=== PATIENT | female | born 1980 | race Caucasian/White ===

== ENCOUNTER 2020-04-04 17:31 | Outpatient (REF) | payer OTHER, SELFPAY | END 2020-04-04 17:32 | disposition home or self-care (01) | LOC: HO.LAB 17:31 | PROVIDERS: Visit Provider Internal Medicine | DX: Z20.828 Contact with and (suspected) exposure to other viral communicable diseases (principal) | CPT/HCPCS: C9803; U0003 ==

== ENCOUNTER 2020-12-24 23:44 | Emergency (ER) | payer OTHER, SELFPAY ==
[2020-12-25 00:59] VITALS: BP 148/94; PULSE 93; RESP 18; TEMP 36.4; O2SAT 100; BMI 23.3
--- NOTE | 2020-12-25 02:03 | PC.NURSE ---
at bedside for primary eval.
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
[2020-12-25] MEDS: Ondansetron ODT 4 MG TAB.RAPDIS TRANSLINGU (02:19)
[2020-12-25] MEDS: oxyCODONE HCl Immed Release 5 MG TABLET 10 MG PO (02:20)
--- NOTE | 2020-12-25 02:21 | PC.NURSE ---
Pt medicated per MAR.
== END 2020-12-25 02:26 | disposition home or self-care (01) ==
LOC: HO.ED 12-25 02:25
PROVIDERS: Emergency Provider Emergency Medicine
DX: T23.241A Burn of second degree of multiple right fingers (nail), including thumb, initial encounter (principal); T23.232A Burn of second degree of multiple left fingers (nail), not including thumb, initial encounter; T31.0 Burns involving less than 10% of body surface; M79.641 Pain in right hand; X08.8XXA Exposure to other specified smoke, fire and flames, initial encounter; Y93.9 Activity, unspecified; Y92.9 Unspecified place or not applicable; Y99.9 Unspecified external cause status
CPT/HCPCS: 99283

== ENCOUNTER 2021-01-02 13:45 | Outpatient (RCR) | payer OTHER, SELFPAY | END 2021-02-20 14:47 | disposition home or self-care (01) | LOC: HO.WCC 13:45 | PROVIDERS: Visit Provider Physician Assistant | DX: T23.222D Burn of second degree of single left finger (nail) except thumb, subsequent encounter (principal); T31.0 Burns involving less than 10% of body surface; I10 Essential (primary) hypertension | CPT/HCPCS: 99213 ==

== ENCOUNTER 2021-04-08 12:21 | Emergency (ER) | payer OTHER, SELFPAY ==
[2021-04-08 12:31] VITALS: BP 165/108; PULSE 85; RESP 18; TEMP 36.6; O2SAT 100; BMI 28.2
--- NOTE | 2021-04-08 14:06 | ED_ITS ---
HPI - Back Pain/Injury General Chief Complaint: Back Pain/Injury Stated Complaint: back pain Time Seen by Provider: 04/08/21 13:01 Source: patient Mode of arrival: ambulatory Limitations: no limitations History of Present Illness HPI Narrative: 40-year-old female presenting to the ED with complaints of lower back pain for the past few days worse today. Reports that the pain radiates to her bilateral lower extremities. She reports she started her new job tomorrow. She missed her hypertensive meds today. She reports that her back pain started shortly after she was helping move stuff out of her dad's house. She denies any other symptoms complaints or concerns at this time. MD elicited complaint: back pain and back injury Onset (ago): day(s) (Past few days worse today) Timing: constant and progressively worsening Severity: moderate Quality: aching Location: lumbar spine Radiation: buttocks Exacerbating factors: movement and walking Relieving factors: none Context: while lifting, turning/twisting and bending Associated symptoms: denies other symptoms Work related injury: No Related Data Previous Rx's Medication Instructions Recorded oxycodone 5 mg tablet 5 mg PO Q4H PRN #14 tab 12/25/20 acetaminophen 500 mg tablet 1,000 mg PO QID PRN #14 tab 04/08/21 (Tylenol Extra Strength) diazepam 5 mg tablet (Valium) 5 mg PO TID PRN #14 tab 04/08/21 ibuprofen 800 mg tablet 800 mg PO Q8H PRN #14 tab 04/08/21 oxycodone 5 mg tablet 5 mg PO Q6H PRN #14 tab 04/08/21 prednisone 20 mg tablet 40 mg PO DAILY 5 Days #10 tab 04/08/21 Allergies Allergy/AdvReac Type Severity Reaction Status Date / Time azithromycin Allergy Rash Verified 04/08/21 12:31 rifabutin Allergy Rash Verified 04/08/21 12:31 Review of Systems Review of Systems: Constitutional : No trauma, No Weight loss, No Fever, No Chills, ENT/Mouth : No Hearing loss, No Ear Pain, No Nasal Congestion, No Sinus Pain, No Hoarseness, No sore throat, No Rhinorrhea, No Swallowing Difficulty Cardiovascular : No Chest Pain, No SOB Respiratory : No Cough, No Dyspnea Gastrointestinal : No Nausea, No Vomiting, No Diarrhea, No abdominal Pain, No Hematochezia, No Melena Genitourinary : No Dysuria, No Urinary Frequency, No Hematuria, No Urinary or Bowel Incontinence/retention Musculoskeletal : + Back pain, No neck pain, No joint stiffness, No joint swelling Skin : No Skin Lesions, No rash or signs of infection Neuro : No Weakness, + radiation, No Numbness, No Paresthesias, No headache, no loss of bowel or bladder incontinence, no saddle anesthesia, Focal weakness, No radiation Denies history of IV drug usage. Yes all other systems are reviewed and are negative [facility] Past Medical History Attestation statement: The following information was validated with the patient. Medical History Depression HIV (human immunodeficiency virus infection) HTN (hypertension) No known health problems Social History Social History Patient Tobacco Use Status: Never used Tobacco Advance Directives: No Advance Directives Information Provided: Yes Patient : No Physical Exam Vital Signs: Vital Signs: Last Vital Signs Temp 97.9 F 04/08/21 12:31 Pulse 85 04/08/21 12:31 Resp 18 04/08/21 12:31 BP 165/108 H 04/08/21 12:31 Pulse Ox 100 04/08/21 12:31 Body Mass Index 28.2 vital signs have been reviewed as normal and appeared to be correct. Blood pressure 165/108. Heart rate normal. Respiration rate normal. Temperature normal. Oxygen saturation normal. Appearance: Alert. Oriented X3. No acute distress. Head: Normal external exam. Normocephalic. Atraumatic. Eyes: PERRLA. EOMI. Conjunctiva and sclera normal. Eyelids normal. ENT: Pharynx normal. Uvula midline. Moist mucous membranes. Neck: Normal inspection. Neck supple. FROM. No adenopathy. Thyroid Normal. No meningeal signs. No neck mass noted. CVS: Normal heart rate and rhythm. Heart sound normal. No murmurs noted. Pulses normal throughout. Respiratory: No respiratory distress. Painless inspiration. Breath sounds normal. No wheezes/rales/rhonchi noted. Chest nontender. No accessory muscle usage noted or decreased air movement noted. Abdomen: Soft and nontender. Bowel sounds normal in all 4 quadrants. No distention noted. No organomegaly noted. No visible injury noted. Back: No CVA tenderness. Full range of motion noted. No obvious deformities, or edema. Mild para-spinal muscular tenderness from lumbar region to coccyx. Full ROM in back and lower extremities. 5/5 strength hip extension/flexion, abduction, adduction. Mild Lumbar pain with hip flexion against resistance. Straight leg raise test negative on right; Straight leg raise test negative on left; Reflexes normal ankle and knee bilaterally; EHL motor strength normal bilaterally. No rashes/lesion/induration/fluctuance or signs infection noted. Skin: Skin warm and dry. Normal skin color. Normal skin turgor. No rashes/lesions/lacerations noted. Extremities: No lower extremity edema. Extremities exhibit normal range of motion. Extremities nontender. Neuro: Oriented X 3. No motor deficit. No sensory deficit. Reflexes normal. Patient has a normal steady gait. Course Course Course Narrative: Pt c likely muscular pain, but could be herniated disc. Neuro exam shows no deficits. Not c/w AAA/epidural abscess/dissection.No high risk Hx (Incont, fever, immunosupp, recent surgery/LP, coag, signif trauma, wt loss, puls mass, hx/o Ca, TB, or IVDU) to warrant MRI/CT today. Not c/w Pyelo/UTI/kidney stone/spinal fx. Not cauda equina syndrome. Imaging not currently indicated. DC c meds and f/u. Discharge Plan Discharge Clinical Impression: Strain of lumbar region Patient Disposition: Home, Self-Care Instructions: Low Back Strain (ED), Lower Back Exercises (ED) Prescriptions: New ibuprofen 800 mg tablet 800 mg PO Q8H PRN (Reason: pain) Qty: 14 RF: 0 prednisone 20 mg tablet 40 mg PO DAILY 5 Days Qty: 10 RF: 0 acetaminophen [Tylenol Extra Strength] 500 mg tablet 1,000 mg PO QID PRN (Reason: fever or pain) Qty: 14 RF: 0 diazepam [Valium] 5 mg tablet 5 mg PO TID PRN (Reason: muscle spasm) Qty: 14 RF: 0 oxycodone 5 mg tablet 5 mg PO Q6H PRN (Reason: pain) Qty: 14 RF: 0 No Action oxycodone 5 mg tablet 5 mg PO Q4H PRN (Reason: pain) Qty: 14 RF: 0 Referrals: Shala Shields MD [Primary Care Provider] - 2 days Stand Alone Forms: Work/School Release Print Language: Amharic
[2021-04-08] MEDS: Ibuprofen 800 MG TABLET PO (14:15)
[2021-04-08] MEDS: Cyclobenzaprine HCl 10 MG TABLET PO (14:16)
[2021-04-08] MEDS: oxyCODONE HCl Immed Release 5 MG TABLET PO (14:16)
== END 2021-04-08 14:22 | disposition home or self-care (01) ==
PROVIDERS: Emergency Provider Emergency Medicine Emergency Medical Services; PCP Internal Medicine
DX: S39.012A Strain of muscle, fascia and tendon of lower back, initial encounter (principal); X58.XXXA Exposure to other specified factors, initial encounter; Y93.9 Activity, unspecified; Y92.9 Unspecified place or not applicable; Y99.9 Unspecified external cause status; Z48.00 Encounter for change or removal of nonsurgical wound dressing; Z79.899 Other long term (current) drug therapy
CPT/HCPCS: 99283

== ENCOUNTER 2021-09-23 08:27 | Emergency (ER) | payer OTHER, SELFPAY ==
[2021-09-23 08:32] VITALS: BP 156/98; PULSE 97; RESP 18; TEMP 36.9; O2SAT 100; BMI 29.0
--- NOTE | 2021-09-23 08:58 | ED_ITS ---
HPI - URI/Sore Throat General Chief Complaint: Upper Respiratory Symptoms Stated Complaint: Flu symptoms Time Seen by Provider: 09/23/21 08:54 Source: patient Mode of arrival: ambulatory Limitations: no limitations History of Present Illness HPI Narrative: URI symtoms since Friday,she is concern about possible covid infection. Denies vomiting does have diarrhea, she is ambulatory to the emergency department. MD elicited complaint: cough Onset (ago): unknown Severity: mild Description of mucous: clear Exacerbating factors: nothing Relieving factors: nothing Related Data Previous Rx's Medication Instructions Recorded oxycodone 5 mg tablet 5 mg PO Q4H PRN #14 tab 12/25/20 acetaminophen 500 mg tablet 1,000 mg PO QID PRN #14 tab 04/08/21 (Tylenol Extra Strength) diazepam 5 mg tablet (Valium) 5 mg PO TID PRN #14 tab 04/08/21 ibuprofen 800 mg tablet 800 mg PO Q8H PRN #14 tab 04/08/21 oxycodone 5 mg tablet 5 mg PO Q6H PRN #14 tab 04/08/21 prednisone 20 mg tablet 40 mg PO DAILY 5 Days #10 tab 04/08/21 Allergies Allergy/AdvReac Type Severity Reaction Status Date / Time azithromycin Allergy Rash Verified 09/23/21 08:32 rifabutin Allergy Rash Verified 09/23/21 08:32 Review of Systems Review of Systems: Yes all other systems are reviewed and are negative Eyes: Eyes: Reports no additional eye complaints Cardiovascular: Cardiovascular: Reports no additional cardiovascular complaints Respiratory: Respiratory: Reports cough Gastrointestinal: Gastrointestinal: Reports no additional gastrointestinal complaints Musculoskeletal: Musculoskeletal: Reports no additional musculoskeletal complaints Neurologic: Reports system reviewed and no additional complaints, except as documented Psychiatric: Psychiatric: Reports no additional psychiatric complaints Endocrine: Endocrine: Reports as per HPI Hematologic/Lymphatic: Hematologic/Lymphatic: Reports no additional hematologic/lymphatic complaints [facility] Past Medical History Medical History Depression HIV (human immunodeficiency virus infection) HTN (hypertension) No known health problems Social History Social History Patient Tobacco Use Status: Never used Tobacco Advance Directives: No Advance Directives Information Provided: No Physical Exam Vital Signs: Vital Signs: Last Vital Signs Temp 98.4 F 09/23/21 08:32 Pulse 97 09/23/21 08:32 Resp 18 09/23/21 08:32 BP 156/98 H 09/23/21 08:32 Pulse Ox 100 09/23/21 08:32 BMI result Body Mass Index 29.0 Const: General: cooperative, healthy appearing, comfortable, no acute distress, well developed, awake and Physically active Nutritional Appearance: average body habitus Orientation/consciousness: oriented to person, oriented to place, oriented to time and patient oriented x3 Limitations: no limitations HEENT: Head: Yes normal to inspection Ears: hearing grossly normal bilaterally General nose exam: Normal external nose present Face and sinus: Yes normal facial exam Mouth: Normal oral and palatal mucosa present Throat: Yes posterior oropharynx normal Neck: Neck: Yes normal visual inspection Chest: Chest palpation & inspection: normal inspection of the chest Resp: Effort & Inspection: normal respiratory effort and able to speak in complete sentences Auscultation: clear to auscultation bilaterally Cardio: Jugular venous distension: no JVD Rate: regular rate Rhythm: regular rhythm GI: Inspection: Yes normal to inspection Palpation (GI): Soft to palpation, not firm, nontender and no guarding Percussion: Yes normal to percussion : General: Yes no CVA tenderness Back/Spine/Pelvis: Back: no CVA tenderness Skin: General skin exam: no rashes or lesions noted, elasticity normal and turgor normal Lesions: no lesions Wounds: no wounds Neuro: General: oriented to person, oriented to place, oriented to time and patient oriented x3 Course Reevaluation(s) Reevaluation #1: She is COVID positive but she is sating 100% on room air, RR 18 Ok to d/c MDM - URI/Sore Throat Lab Data Labs: Lab Results 09/23/21 09/23/21 09/23/21 Range/Units 08:42 08:42 08:42 COVID-19 (JORGE) Positive A (Negative) COVID-19 Clin Com See Note Influenza Type A (KIRSTIN) Negative (Negative) Influenza Type B (KIRSTIN) Negative (Negative) Influenza A & B Note See Note S. pyogenes GrpA KIRSTIN Negative (Negative) Discharge Plan Discharge Clinical Impression: COVID-19 Patient Disposition: Home, Self-Care Instructions: COVID-19 (Coronavirus Disease 2019) (ED) Prescriptions: No Action oxycodone 5 mg tablet 5 mg PO Q4H PRN (Reason: pain) Qty: 14 0RF Rx Instructions: second degree ross ibuprofen 800 mg tablet 800 mg PO Q8H PRN (Reason: pain) Qty: 14 0RF prednisone 20 mg tablet 40 mg PO DAILY 5 Days Qty: 10 0RF acetaminophen [Tylenol Extra Strength] 500 mg tablet 1,000 mg PO QID PRN (Reason: fever or pain) Qty: 14 0RF diazepam [Valium] 5 mg tablet 5 mg PO TID PRN (Reason: muscle spasm) Qty: 14 0RF oxycodone 5 mg tablet 5 mg PO Q6H PRN (Reason: pain) Qty: 14 0RF Referrals: Trever Coreas MD [Emergency Provider] - Stand Alone Forms: Work/School Release Interventions: ED Discharge Assessment Last Done: 09/23/21 09:38 Discharge Date/Time: 09/23/21 09:39
[2021-09-23 09:01] LABS: COVID-19 Test Positive (Negative); IDNOW Serial# 9DB6401D
[2021-09-23 09:08] LABS: IDNOW Serial# 08D9AD1C; Influenza A Negative (Negative); Influenza B2 Negative (Negative); Strep A Nucleic Acid Negative (Negative)
== END 2021-09-23 09:39 | disposition home or self-care (01) ==
PROVIDERS: Emergency Provider Emergency Medicine; PCP Internal Medicine
DX: U07.1 COVID-19 (principal); R05.9 Cough, unspecified; Z79.899 Other long term (current) drug therapy
CPT/HCPCS: 87502; 87635; 87651; 99283

== ENCOUNTER 2022-06-28 14:03 | Emergency (ER) | payer OTHER, SELFPAY ==
--- NOTE | ~2022-06-28 | XR_ITS ---
EXAMINATION: XR HIP, RIGHT CLINICAL INFORMATION: Atraumatic right hip pain COMPARISON: None TECHNIQUE: Two views of the right hip. Single view of the pelvis. FINDINGS: No fracture or dislocation. The hips are well aligned. Mild narrowing of the joint spaces with subchondral sclerosis and small osteophytes. The pelvic rim is intact. The sacroiliac joints and pubic symphysis are intact. Transitional anatomy at the lumbosacral junction. Normal bowel gas pattern. XR/XR hip RT w [id number] IMPRESSION: Mild degenerative changes of the hips.
--- NOTE | 2022-06-28 14:06 | ED_ITS ---
HPI - Extremity Injury (Lower) General Chief Complaint: General Medical <RAYSA Das - Last Filed: 06/28/22 14:08> Stated Complaint: R Hip Pain Unable to Walk <RAYSA Das - Last Filed: 06/28/22 14:08> Time Seen by Provider: 06/28/22 17:07 <RAYSA Das - Last Filed: 06/28/22 14:08> History of Present Illness HPI Narrative: patient complains of right gluteal and hip pain which began 3 days ago it got worse today making it painful to bear weight, no fever no redness no rashes no injury no trauma no radiation of the pain no numbness weakness or tingling no back pain no changes to bowel or bladder, there was no injury, no radiation of pain, it hurts to walk but she is able to walk there is no dysuria no frequency no incontinence no constipation, there are no other joint pains <RAYSA Tellez - Last Filed: 07/06/22 10:04> Related Data Home Medications: Previous Rx's Medication Instructions Recorded oxycodone 5 mg tablet 5 mg PO Q4H PRN pain #14 tabs 12/25/20 acetaminophen 500 mg tablet 1,000 mg PO QID PRN fever or pain 04/08/21 (Tylenol Extra Strength) #14 tabs diazepam 5 mg tablet (Valium) 5 mg PO TID PRN muscle spasm #14 04/08/21 tabs ibuprofen 800 mg tablet 800 mg PO Q8H PRN pain #14 tabs 04/08/21 oxycodone 5 mg tablet 5 mg PO Q6H PRN pain #14 tabs 04/08/21 prednisone 20 mg tablet 40 mg PO DAILY rash 5 days #10 tabs 04/08/21 acetaminophen 500 mg tablet 1,000 mg PO TID PRN pain #30 tabs 06/28/22 cane #1 ea 06/28/22 ibuprofen 600 mg tablet 600 mg PO Q6H PRN pain #20 tabs 06/28/22 oxycodone 5 mg tablet 5 mg PO Q6H PRN pain #10 tabs 06/28/22 <RAYSA Das - Last Filed: 06/28/22 14:08> Allergies/Adverse Reactions: Allergies Allergy/AdvReac Type Severity Reaction Status Date / Time azithromycin Allergy Rash Verified 06/28/22 14:13 rifabutin Allergy Rash Verified 06/28/22 14:13 <RAYSA Das - Last Filed: 06/28/22 14:08> COUNT INCLUDES THE [facility] Past Medical History Source: nursing notes reviewed <RAYSA Tellez - Last Filed: 07/06/22 10:04> Medical History: Medical History (Updated 06/29/22 @ 00:01 by Bella Valles) Arthralgia of hip, right Depression HIV (human immunodeficiency virus infection) HTN (hypertension) No known health problems <RAYSA Das - Last Filed: 06/28/22 14:08> Social History Social History: Social History Patient Tobacco Use Status: Never used Tobacco <RAYSA Das - Last Filed: 06/28/22 14:08> Physical Exam Vital Signs: Vital Signs: Last Vital Signs Temp 98.2 F 06/28/22 14:09 Pulse 85 06/28/22 14:09 Resp 16 06/28/22 14:09 BP 172/112 H 06/28/22 14:09 Pulse Ox 100 06/28/22 14:09 O2 Del Method 06/28/22 14:09 BMI result Body Mass Index 29.8 <RAYSA Das - Last Filed: 06/28/22 14:08> Vital Signs: Last Vital Signs Temp 98.2 F 06/28/22 14:09 Pulse 85 06/28/22 14:09 Resp 16 06/28/22 14:09 BP 172/112 H 06/28/22 14:09 Pulse Ox 100 06/28/22 14:09 O2 Del Method 06/28/22 14:09 BMI result Body Mass Index 29.8 <RAYSA Tellez - Last Filed: 07/06/22 10:04> General appearance no acute distress Head is normocephalic atraumatic Neck is supple Chest clear to auscultation bilateral No respiratory distress Abdomen soft nontender The back there is no tenderness to the back, no bony tenderness, full range of motion in the back, there is right lateral gluteal tenderness, skin of the gluteal area and the back is all normal there is no rash no redness no wounds Extremities there is full range of motion x4 including the right hip but there is pain in the right hip and gluteal area when the patient puts weight on the leg, she is able to ambulate but with a limp, skin over the hip is normal there is no redness no warmth no swelling no rashes, neurovascular intact distal Other extremities normal Neuro no focal motor sensory deficits <RAYSA Tellez - Last Filed: 07/06/22 10:04> Course Course Course Narrative: E- 14:05PM - 42yoF presenting ot the ED with complaints of atraumatic right hip pain for 3 days worse since yesterday. 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 Worse with movement or walking. Denies fevers, abd pain, flank pain, dysuria, hematuria. Plan: Xray of Right Hip ordered at this time. <RAYSA Das - Last Filed: 06/28/22 14:08> E- 14:05PM - 42yoF presenting ot the ED with complaints of atraumatic right hip pain for 3 days worse since yesterday. 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 Worse with movement or walking. Denies fevers, abd pain, flank pain, dysuria, hematuria. Plan: Xray of Right Hip ordered at this time. Right hip x-ray did show some mild arthritis Patient had tenderness in the right lateral gluteal area, there was no redness or warmth no sign of infection there is full painless range of motion of the hip, no evidence of septic arthritis, but she did have pain when she bears weight and walking she was walking with a limp, it was all neurovascular intact, her back was nontender with a full range of motion and pain is likely from right hip arthritis Patient is prescribed analgesics and follow with orthopedic <RAYSA Tellez - Last Filed: 07/06/22 10:04> Medications Administered Discontinued Medications Generic Name Dose Route Start Last Admin Trade Name Freq PRN Reason Stop Dose Admin Ibuprofen 600 mg 06/28/22 18:08 06/28/22 18:16 Ibuprofen 600 Mg Tablet PO 06/28/22 18:09 600 mg ONCE ONE Administration <RAYSA Das - Last Filed: 06/28/22 14:08> Medications Administered Discontinued Medications Generic Name Dose Route Start Last Admin Trade Name Freq PRN Reason Stop Dose Admin Ibuprofen 600 mg 06/28/22 18:08 06/28/22 18:16 Ibuprofen 600 Mg Tablet PO 06/28/22 18:09 600 mg ONCE ONE Administration <RAYSA Tellez - Last Filed: 07/06/22 10:04> Discharge Plan Discharge Clinical Impression: Arthralgia of hip, right <RAYSA Das - Last Filed: 06/28/22 14:08> Patient Disposition: Home, Self-Care <RAYSA Das - Last Filed: 06/28/22 14:08> Additional Instructions: right hip x-ray showed mild arthritis The pain in your right buttock area may be from your right hip or it may be from muscles or ligaments but there is no sign of any infection or any dangerous condition now Follow with orthopedist Return any time for redness fever any sign of infection any worse condition or any concerns <RAYSA Das - Last Filed: 06/28/22 14:08> Prescriptions: New ibuprofen 600 mg tablet 600 mg PO Q6H PRN (Reason: pain) Qty: 20 0RF oxycodone 5 mg tablet 5 mg PO Q6H PRN (Reason: pain) Qty: 10 0RF Rx Instructions: Partial Fill upon patient request. acetaminophen 500 mg tablet 1,000 mg PO TID PRN (Reason: pain) Qty: 30 0RF (DME) cane Device See Rx Instructions .Route Qty: 1 0RF Rx Instructions: As directed No Action oxycodone 5 mg tablet 5 mg PO Q4H PRN (Reason: pain) Qty: 14 0RF Rx Instructions: second degree ross ibuprofen 800 mg tablet 800 mg PO Q8H PRN (Reason: pain) Qty: 14 0RF prednisone 20 mg tablet 40 mg PO DAILY 5 Days Qty: 10 0RF acetaminophen [Tylenol Extra Strength] 500 mg tablet 1,000 mg PO QID PRN (Reason: fever or pain) Qty: 14 0RF diazepam [Valium] 5 mg tablet 5 mg PO TID PRN (Reason: muscle spasm) Qty: 14 0RF oxycodone 5 mg tablet 5 mg PO Q6H PRN (Reason: pain) Qty: 14 0RF <RAYSA Das Last Filed: 06/28/22 14:08> Referrals: Otis Casey MD [Physician] - ( right hip arthritis) <RAYSA Das - Last Filed: 06/28/22 14:08> Stand Alone Forms: Work/School Release <RAYSA Das - Last Filed: 06/28/22 14:08> Interventions: ED Discharge Assessment Last Done: 06/28/22 18:27 <RAYSA Das - Last Filed: 06/28/22 14:08> Discharge Date/Time: 06/28/22 18:28 <RAYSA Das - Last Filed: 06/28/22 14:08>
[2022-06-28 14:09] VITALS: BP 172/112; PULSE 85; RESP 16; TEMP 36.8; O2SAT 100; BMI 29.8
[2022-06-28] MEDS: Ibuprofen 600 MG TABLET PO (18:16)
== END 2022-06-28 18:28 | disposition home or self-care (01) ==
PROVIDERS: Emergency Provider Student in an Organized Health Care Education/Training Program; PCP Internal Medicine
DX: M25.551 Pain in right hip (principal); Z79.899 Other long term (current) drug therapy
CPT/HCPCS: 73502; 99283

== ENCOUNTER → 2022-07-31 13:54 | Outpatient (BNVA) | payer OTHER, SELFPAY | PROVIDERS: PCP Internal Medicine; Visit Provider Physician Assistant | DX: M67.951 Unspecified disorder of synovium and tendon, right thigh (principal) | CPT/HCPCS: 99202 ==

== ENCOUNTER 2022-11-27 15:30 | Outpatient (AMB) | payer OTHER, SELFPAY ==
--- NOTE | 2022-11-27 15:34 | MHC.OFFVIS ---
Intake Vital Signs 11/27/22 15:35 Height 5 ft 6 in Weight 185 lb BMI 29.9 Intake Visit Reasons: OV- Rt Hip Pain Intake Note: Megan 42 yr old female presents today for her right hip/thigh pain. Patient reports physical therapy never called her to schedule. Patient reports her pain is the same. Allergies azithromycin Allergy (Verified 11/27/22 15:42) Rash rifabutin Allergy (Verified 11/27/22 15:42) Rash HPI OV- Rt Hip Pain HPI Details 42-year-old female who returns to the office today for a follow-up of right hip pain. She continues to have pain in her hip which is worse with prolonged standing and sleeping on the right side. She has not yet started therapy. [facility] Medical History Arthralgia of hip, right Depression HIV (human immunodeficiency virus infection) HTN (hypertension) No known health problems Social History Patient Tobacco Use Status: Never used Tobacco Review of Systems Const All systems reviewed & are unremarkable except as noted in HPI and below Physical Exam Vital Signs: BMI result Body Mass Index 29.9 Const General: cooperative, healthy appearing, comfortable, no acute distress, well developed and alert Orientation/consciousness: patient oriented x3 HEENT Head: Yes normal to inspection, Yes normocephalic and Yes atraumatic Eyes General: appearance normal, both eyes and all related structures Resp Effort & Inspection: normal respiratory effort and able to speak in complete sentences Cardio Rate: regular rate Peripheral pulses: Peripheral pulses 2+ throughout GI Palpation (GI): Soft to palpation Skin Lesions: no lesions Rashes: no rashes Neuro General: patient oriented x3 Extrem Other: Right hip normal to inspection. No pain with ROM of the hip. Pain along the greater trochanteric bursa which extends into the piriformis. No pain with hip flexion or abduction. Negative tenderness along the SI joint, Negative SLR. NVI. Assessment & Plan Assessment & Plan (1) Tendinopathy of right gluteus medius: Code(s): M67.951 - Unspecified disorder of synovium and tendon, right thigh Plan We discussed options which include PT, NSAIDs and injections. The patient will defer on the injection today and proceed with PT and NSAIDs. If symptoms persist, the patient will contact me for an injection, otherwise, PRN. Patient Instructions: Scribed for Arina Anderson PA-C, by Chris Moore medical microbiologist, on 11/27/2022 at 3:30 PM SUSAN. Arina Conteh PA-C, have personally reviewed and agree with the information entered by the scribe. Coding Level of Care Code Est Pt Level 3 (83204) Diagnoses Tendinopathy of right gluteus medius M67.951
[2022-11-27 15:35] VITALS: BMI 29.9
== END 2022-11-27 15:51 | disposition home or self-care (01) ==
PROVIDERS: Visit Provider Physician Assistant
DX: M67.951 Unspecified disorder of synovium and tendon, right thigh (principal)
CPT/HCPCS: 99213

== ENCOUNTER → 2022-11-27 15:30 | Outpatient (BNVA) | payer OTHER, SELFPAY | PROVIDERS: Visit Provider Physician Assistant | DX: G57.01 Lesion of sciatic nerve, right lower limb (principal); M67.951 Unspecified disorder of synovium and tendon, right thigh | CPT/HCPCS: 99212 ==

== ENCOUNTER 2023-02-13 16:51 | Emergency (ER) | payer OTHER, SELFPAY ==
--- NOTE | ~2023-02-13 | XR_ITS ---
EXAMINATION: XR HIP, RIGHT CLINICAL INFORMATION: Hip pain. COMPARISON: Radiograph right hip 06/28/2022. TECHNIQUE: Two views of the right hip. FINDINGS: No acute fractures or subluxation. Moderate degenerative osteoarthritis in both hips. Chronic stable mild offset of the left superior pubic rami. Again noted transitional left-sided lumbosacral anatomy. No significant soft tissue abnormality. Small pelvic phleboliths are seen. XR/XR hip RT w PEL1V IMPRESSION: 1. No acute fractures or subluxation. 2. Moderate degenerative osteoarthritis in both hips.
[2023-02-13 17:34] VITALS: BP 155/101; PULSE 80; RESP 18; TEMP 36.6; O2SAT 99; BMI 29.9
--- NOTE | 2023-02-13 17:38 | ED.GENADULT ---
HPI - General Adult General Chief complaint: Extremity Injury, Lower Stated complaint: hip pain, no injury Time Seen by Provider: 02/13/23 18:01 Source: patient Mode of arrival: ambulatory Limitations: no limitations History of Present Illness HPI narrative: This is a 42-year-old female past medical history significant for osteoarthritis of hip presenting with complaints of severe right hip pain, she reports this is chronic pain with an acute episode, patient reports is worse with ambulation weight-bearing better at rest. 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 At times pain goes from R hip to RLE. No numbness or tingling. No fevers o chills. Denies trauma to the area. Related Data Previous Rx's Medication Instructions Recorded oxycodone 5 mg tablet 5 mg PO Q4H PRN pain #14 tabs 12/25/20 acetaminophen 500 mg tablet 1,000 mg (2 x 500 mg) PO QID PRN 04/08/21 (Tylenol Extra Strength) fever or pain #14 tabs diazepam 5 mg tablet (Valium) 5 mg PO TID PRN muscle spasm #14 04/08/21 tabs ibuprofen 800 mg tablet 800 mg PO Q8H PRN pain #14 tabs 04/08/21 oxycodone 5 mg tablet 5 mg PO Q6H PRN pain #14 tabs 04/08/21 prednisone 20 mg tablet 40 mg (2 x 20 mg) PO DAILY rash 5 04/08/21 days #10 tabs acetaminophen 500 mg tablet 1,000 mg (2 x 500 mg) PO TID PRN 06/28/22 pain #30 tabs cane #1 ea 06/28/22 ibuprofen 600 mg tablet 600 mg PO Q6H PRN pain #20 tabs 06/28/22 oxycodone 5 mg tablet 5 mg PO Q6H PRN pain #10 tabs 06/28/22 ketorolac 10 mg tablet 10 mg PO TID PRN pain 5 days #15 02/13/23 tabs lidocaine 5 % topical patch 1 patch topical DAILY PRN pain #15 02/13/23 ea prednisone 20 mg tablet 40 mg (2 x 20 mg) PO DAILY 5 days 02/13/23 #10 tabs Allergies Allergy/AdvReac Type Severity Reaction Status Date / Time azithromycin Allergy Rash Verified 02/13/23 17:34 rifabutin Allergy Rash Verified 02/13/23 17:34 Review of Systems Review of Systems: Constitutional : No Weight loss, No Fever, No Chills, No Fatigue, No Malaise ENT/Mouth : No sore throat, No Rhinorrhea Eyes: No Eye Pain, No Swelling, No Redness Cardiovascular : No Chest Pain, No SOB, No Dyspnea on Exertion, No Orthopnea, No Edema, No Palpitations Respiratory : No Cough, No Sputum, No Wheezing Gastrointestinal : No Nausea, No Vomiting, No Diarrhea, No Constipation, No abdominal Pain, No Hematochezia, No Melena Genitourinary : No Dysuria, No Urinary Frequency, No Hematuria, Musculoskeletal : + joint pain, No Myalgias, No Joint Swelling Skin : No Skin Lesions, No rash Neuro : No Weakness, No Numbness, No Dizziness, No Headache Psych : No Anxiety/Panic, No Depression All other systems reviewed and are negative Yes all other systems are reviewed and are negative [facility] Past Medical History Attestation statement: The following information was validated with the patient. Source: old records reviewed and nursing notes reviewed Medical History Arthralgia of hip, right Depression HIV (human immunodeficiency virus infection) HTN (hypertension) No known health problems Social History Social History Patient Tobacco Use Status: Never used Tobacco Physical Exam ED Vital Signs: Vital Signs - 24 hr 02/13/23 17:34 02/13/23 18:20 Temperature 97.8 F 99.0 F Pulse Rate 80 70 Respiratory Rate 18 16 Blood Pressure 155/101 H 169/106 H Pulse Oximetry 99 100 Oxygen Delivery Method Room Air Room Air BMI result Body Mass Index 29.9 Htn- hasnt taken her home meds. Will take them when she gets home. No visual disturbances or dizziness concerning for HTN urgency or emergency Appearance: Alert.? Oriented X3.? No acute distress.? Head: Normocephalic, atraumatic, no step-offs or deformities Neck: Normal inspection.? Neck supple.? CVS: Normal heart rate and rhythm.? Pulses normal.? Respiratory: No respiratory distress.? Breath sounds normal.? Abdomen: Soft and nontender.? Skin: Skin warm and dry.? Normal skin color.? Normal skin turgor.? Extremities: No lower extremity edema.? No calf ttp. 5/5 strength to bilateral upper and lower extremities. No overlying skin changes. Full ROM of R hip flexion and extension but pt states is painful. Gross sensation in tact, no saddle paresthesias. 2+ popliteal, DP, PT pulses b/l. Cap refill <2s b/l. Neuro: Oriented X 3.? No motor deficit.? No sensory deficit. CN 2-12 intact . Ambulatory without difficulty. Course Course Course Narrative: RmE: 42 yold female presents to the ED for RIght hip pain that is chronic due to artrhits. NO new trauma. NO symptoms. Xray hip ordered Reevaluation(s) Reevaluation #1: No acute fractures or subluxations. Degenerative osteoarthritis which is known. Will discharge her with prednisone, Toradol. Educated patient on diagnosis and treatment plan, answered all question, patient verbalizes understanding. At this time patient will be discharged home, advised to return with new or worsening symptoms. Educated on worrisome signs and symptoms and when to return. At this time I feel comfortable discharge home. Patient feeling a lot better at time of discharge. Ambulatory without difficulty Time: 19:03 Medications Administered Discontinued Medications Generic Name Dose Route Start Last Admin Trade Name Yanni PRN Reason Stop Dose Admin Ketorolac Tromethamine 30 mg 02/13/23 18:17 02/13/23 18:28 Ketorolac Tromethamine 30 Mg/Ml Vial IM 02/13/23 18:18 30 mg ONCE ONE Administration Lidocaine 2 patch 02/13/23 18:17 02/13/23 18:26 Lidocaine 4 % Patch Adh..Patch TRANSDERMA 02/13/23 18:18 2 patch ONCE ONE Administration Protocol Medical Decision Making Medical Decision Making MDM Narrative: 42 y o female PMH osteoarthritis of the hips presenting for evaluation of atraumatic R leg pain Physical exam significant for no lower extremity edema.? No calf ttp. 5/5 strength to bilateral upper and lower extremities. No overlying skin changes. Full ROM of R hip flexion and extension but pt states is painful. Gross sensation in tact, no saddle paresthesias. 2+ popliteal, DP, PT pulses b/l. Cap refill <2s b/l. Likely exacerbation of osteoarthritis vs bursitis vs tendinitis. Atraumatic, no concern for acute dislocation or fracture. No acute threat to limb, neurovascularly in tact. No signs of necrosis. No signs of acute arterial embolism or venous thrombus. No overlying skin changes concerning for infection. Plan -- Imaging Differential Diagnosis Differential Diagnoses: The differential diagnosis associated with the presentation includes Likely exacerbation of osteoarthritis vs bursitis vs tendinitis. Atraumatic, no concern for acute dislocation or fracture. No acute threat to limb, neurovascularly in tact. No signs of acute arterial embolism or venous thrombus. No overlying skin changes concerning for infection. Admission/Observation Consideration of admission/observation: Escalation of care including admission/observation considered No indication Independent Interpretation I performed an independent interpretation of an: Plain X-Ray Radiology Impression Discussion of test interpretation with radiology: I have reviewed the radiologist's reading. External Record Review External record reviewed: Inpatient record Critical Care Time Critical Care Time Critical Care Time: No Discharge Plan Discharge Clinical Impression: Acute pain of right hip Patient Disposition: Home, Self-Care Instructions: Hip Pain (ED) Additional Instructions: Take your medications as prescribed. If you were prescribed antibiotics today, it is important that you take your medication to their entirety, do not skip any doses, do not finish them early. Follow-up with your primary care provider this week. Return to the emergency department with new or worsening symptoms. Such as fevers, chills, chest pain, shortness of breath, nausea, vomiting, dizziness, headache, vision changes, lethargy In case of emergency call 911 Take your medications as prescribed and follow up with the orthopedic team. XR/XR hip RT w PEL1V IMPRESSION: 1. No acute fractures or subluxation. 2. Moderate degenerative osteoarthritis in both hips. Prescriptions: New prednisone 20 mg tablet 40 mg PO DAILY 5 Days Qty: 10 0RF ketorolac 10 mg tablet 10 mg PO TID PRN (Reason: pain) 5 Days Qty: 15 0RF lidocaine 5 % adhesive patch,medicated 1 patch topical DAILY PRN (Reason: pain) Qty: 15 0RF Rx Instructions: leave on most painful area for up to 12 hrs No Action oxycodone 5 mg tablet 5 mg PO Q4H PRN (Reason: pain) Qty: 14 0RF Rx Instructions: second degree ross ibuprofen 600 mg tablet 600 mg PO Q6H PRN (Reason: pain) Qty: 20 0RF oxycodone 5 mg tablet 5 mg PO Q6H PRN (Reason: pain) Qty: 10 0RF Rx Instructions: Partial Fill upon patient request. acetaminophen 500 mg tablet 1,000 mg PO TID PRN (Reason: pain) Qty: 30 0RF (DME) cane Device See Rx Instructions .Route Qty: 1 0RF Rx Instructions: As directed ibuprofen 800 mg tablet 800 mg PO Q8H PRN (Reason: pain) Qty: 14 0RF prednisone 20 mg tablet 40 mg PO DAILY 5 Days Qty: 10 0RF acetaminophen [Tylenol Extra Strength] 500 mg tablet 1,000 mg PO QID PRN (Reason: fever or pain) Qty: 14 0RF diazepam [Valium] 5 mg tablet 5 mg PO TID PRN (Reason: muscle spasm) Qty: 14 0RF oxycodone 5 mg tablet 5 mg PO Q6H PRN (Reason: pain) Qty: 14 0RF Referrals: [facility] [Provider Group] - 2 days Shala Shields MD [Primary Care Provider] - 2 days Stand Alone Forms: Work/School Release Interventions: ED Discharge Assessment Last Done: 02/13/23 19:20 Discharge Date/Time: 02/13/23 19:20
[2023-02-13 18:20] VITALS: BP 169/106; PULSE 70; RESP 16; TEMP 37.2; O2SAT 100
[2023-02-13] MEDS: Lidocaine 4 % Patch ADH..PATCH 2 PATCH TRANSDERMA (18:26)
[2023-02-13] MEDS: Ketorolac Tromethamine 30 MG/ML VIAL IM (18:28)
[2023-02-13 19:02] VITALS: BP 187/104; PULSE 68; RESP 16; TEMP 36.4; O2SAT 100
== END 2023-02-13 19:20 | disposition home or self-care (01) ==
PROVIDERS: Emergency Provider Emergency Medicine; PCP Internal Medicine
DX: M25.551 Pain in right hip (principal); M16.11 Unilateral primary osteoarthritis, right hip; I10 Essential (primary) hypertension; B20 Human immunodeficiency virus [HIV] disease; Z79.899 Other long term (current) drug therapy
CPT/HCPCS: 73502; 96372; 99283; 99284; J1885

== ENCOUNTER 2023-03-31 15:06 | Outpatient (AMB) | payer OTHER, SELFPAY ==
[2023-03-31 15:12] VITALS: BMI 29.9
--- NOTE | 2023-03-31 15:12 | MHC.OFFVIS ---
Intake Vital Signs 03/31/23 15:12 Height 5 ft 6 in Weight 185 lb BMI 29.9 Intake Visit Reasons: OV- Rt Hip pain Intake Note: Megan 42 yr old female presents today for a follow up of right hip. Patient reports her last visit an order for PT was placed however she was unable to attend. Currently she has constant pain in her groin area that radiates to her buttocks. States her pain has been getting worse. Finds no relief with Tylenol and very little to no relief with ibuprofen. Allergies azithromycin Allergy (Verified 03/31/23 15:24) Rash rifabutin Allergy (Verified 03/31/23 15:24) Rash HPI OV- Rt Hip pain HPI Details 42-year-old female who returns to the office today for a follow-up of right hip pain. She reports she was given a course of physical therapy which was unable to attend. She currently states she has constant worsening pain in her groin region which radiates to her buttocks. She also c/o holding her sneeze as she feels like her hip will pop out if she sneezes. She finds no relief with Tylenol and minimal relief with ibuprofen. [facility] Medical History Arthralgia of hip, right Depression HIV (human immunodeficiency virus infection) HTN (hypertension) No known health problems Social History (Reviewed 03/31/23 @ 15:24 by Swathi Hernandez [facility] [place] [place]) Patient Tobacco Use Status: Never used Tobacco Review of Systems Const All systems reviewed & are unremarkable except as noted in HPI and below Physical Exam Vital Signs: BMI result Body Mass Index 29.9 Extrem Other: Right hip: Pain with ROM which extends to the buttock region. She has pain with hip flexion. Calf supple, nontender. NVI. Assessment & Plan Assessment & Plan (1) Tendinopathy of right gluteus medius: Code(s): M67.951 - Unspecified disorder of synovium and tendon, right thigh (2) Osteoarthritis of right hip: Code(s): M16.11 - Unilateral primary osteoarthritis, right hip Qualifiers: Osteoarthritis type: primary Qualified Code(s): M16.11 - Unilateral primary osteoarthritis, right hip Plan We discussed options today. It seems that most of her discomfort cold be coming from the joint itself whether this is arthritis pain or soft tissue I am unsure. However, I did suggest an injection on the right hip which she is interested with. I did put in a referral for a right hip intra articular injection to be performed in the hospital under fluoroscopy. Her PCP did order an MRI of the right hip. Once she has had the injection, I did encourage her to see me back 6 weeks post injection for a follow-up. Orders: Orders [place] arthrogram hip RT Today M16.11 - Unilateral primary osteoarthritis, right hip Medications: New celecoxib (Celebrex) 200 mg PO BID 60 caps 3RF 30 days Patient Instructions: Scribed for Arina Anderson PA-C, by Chris Moore medical billing specialist, on 03/31/2023 at 3:00 PM SUSAN. Arina Conteh PA-C, have personally reviewed and agree with the information entered by the scribe. Coding Level of Care Code Est Pt Level 3 (70783) Diagnoses Tendinopathy of right gluteus medius M67.951 Primary osteoarthritis of right hip M16.11 Osteoarthritis type: primary
== END 2023-03-31 16:13 | disposition home or self-care (01) ==
PROVIDERS: PCP Internal Medicine; Visit Provider Physician Assistant
DX: M67.951 Unspecified disorder of synovium and tendon, right thigh (principal); M16.11 Unilateral primary osteoarthritis, right hip
CPT/HCPCS: 99213

== ENCOUNTER → 2023-03-31 15:06 | Outpatient (BNVA) | payer OTHER, SELFPAY | PROVIDERS: PCP Internal Medicine; Visit Provider Physician Assistant | DX: M67.951 Unspecified disorder of synovium and tendon, right thigh (principal); M16.11 Unilateral primary osteoarthritis, right hip | CPT/HCPCS: 99212 ==

== ENCOUNTER 2023-06-06 10:21 | Emergency (ER) | payer OTHER, SELFPAY ==
--- NOTE | ~2023-06-06 | CT_ITS ---
EXAMINATION: CT ABDOMEN AND PELVIS WITHOUT CONTRAST CLINICAL INFORMATION: Right flank pain. COMPARISON: None available. TECHNIQUE: Multidetector volumetric imaging was performed from the superior aspect of the liver through the pubic symphysis. Sagittal and coronal reformatted images were obtained on the technologist's workstation. This CT examination was performed using dose optimization techniques as appropriate, variously including the following: *Automated exposure control *Adjustment of mA and/or kV according to patient size (this includes techniques or standardized protocols for targeted exams where dose is matched to indication/reason for exam; i.e. extremities or head) *Use of iterative reconstruction technique DLP: 684 mGy-cm FINDINGS: LUNG BASES: The visualized lung bases are unremarkable. LIVER, GALLBLADDER, AND BILIARY TREE: The noncontrast liver is normal in size and contour. No biliary ductal dilatation is present. The gallbladder is unremarkable with no evidence of radiopaque gallstones, gallbladder wall thickening, or obvious pericholecystic inflammatory changes. PANCREAS: Unremarkable. SPLEEN: Unremarkable. ADRENAL GLANDS: Unremarkable. KIDNEYS AND URETERS: The kidneys are normal in size, shape, and attenuation. No hydronephrosis, hydroureter, or calculi seen. No perinephric stranding. BLADDER: Decompressed. GASTROINTESTINAL TRACT: Small and large bowel loops are of normal caliber. No small bowel obstruction. Appendix is within normal limits. ABDOMINAL WALL: No significant hernia is appreciated. LYMPH NODES: No bulky lymphadenopathy. VASCULAR: Normal caliber abdominal aorta. PELVIC VISCERA: Unremarkable. OSSEOUS STRUCTURES: No destructive bone lesions. Marked degenerative disc disease at L2-L3 and L4-L5. Left hemitransitional lumbosacral anatomy. CT/CT abdomen pelvis wo IV con IMPRESSION: No acute abnormality in the abdomen or pelvis.
[2023-06-06 10:42] VITALS: BP 180/110; PULSE 81; RESP 16; TEMP 36.9; O2SAT 98; BMI 29.0
--- NOTE | 2023-06-06 12:00 | ED.ABDPAIN ---
HPI - Abdominal Pain General Chief Complaint: Abdominal Pain Stated Complaint: Pain side of abd/back Time Seen by Provider: 06/06/23 11:53 Source: patient, RN notes reviewed and old records reviewed Mode of arrival: ambulatory History of Present Illness HPI narrative: 43-year-old female with a past medical history of tubal ligation presenting to the ED complaining of right flank pain radiating to right abdomen x this morning. Denies fever, chills, nausea/vomiting, diarrhea, dysuria/hematuria MD elicited complaint: abdominal pain Related Data Home Medications Medication Instructions Recorded Confirmed darunavir ethanolate 800 mg tablet 800 mg PO DAILY 03/31/23 (Prezista) elviteg 150 mg-cob 150 mg-emtricit 1 tab PO DAILY 03/31/23 200 mg-tenofo alafenam 10 mg tablet (Genvoya) Previous Rx's Medication Instructions Recorded acetaminophen 500 mg tablet 1,000 mg (2 x 500 mg) PO TID PRN 06/28/22 pain #30 tabs cane #1 ea 06/28/22 ibuprofen 600 mg tablet 600 mg PO Q6H PRN pain #20 tabs 06/28/22 lidocaine 5 % topical patch 1 patch topical DAILY PRN pain #15 02/13/23 ea celecoxib 200 mg capsule (Celebrex) 200 mg PO BID 30 days #60 caps 03/31/23 Allergies Allergy/AdvReac Type Severity Reaction Status Date / Time azithromycin Allergy Rash Verified 03/31/23 15:24 rifabutin Allergy Rash Verified 03/31/23 15:24 Review of Systems Review of Systems Constitutional: No Fever, No Chills ENT/Mouth: No Ear Pain, No Nasal Congestion, No sore throat, No Rhinorrhea, No Swallowing Difficulty Cardiovascular: No Chest Pain, No SOB Respiratory: No Cough, No Sputum, No Wheezing Gastrointestinal: No Nausea, No Vomiting, No Diarrhea, No Constipation,+ Abdominal pain Genitourinary: No Dysuria, No Urinary Frequency, No Hematuria, No Urinary Incontinence/retention, No Urgency, No Flank Pain Musculoskeletal: No joint pain, No Myalgia Skin: No Skin Lesions, No rash Neuro: No Weakness Yes all other systems are reviewed and are negative Constitutional: Reports as per [facility] Past Medical History Attestation statement: The following information was validated with the patient. Source: old records reviewed Onset Date is defined in the Problem List Problems that require an onset date and time if occurred within 24 hrs of arrival to the ED Aortic Dissection and Rupture; Neurologic impairment; Cardiopulmonary Arrest; Endotracheal Intubation; Insertion or Replacement of Mechanical Circulatory Assist Device Medical History Arthralgia of hip, right Depression HIV (human immunodeficiency virus infection) HTN (hypertension) No known health problems Social History Social History Patient Tobacco Use Status: Never used Tobacco Advance Directives: No Advance Directives Information Provided: No Physical Exam ED Vital Signs: Vital Signs - 24 hr 06/06/23 10:42 06/06/23 16:03 Temperature 98.4 F Pulse Rate 81 Respiratory Rate 16 Blood Pressure 180/110 H 170/91 H Pulse Oximetry 98 Oxygen Delivery Method Room Air BMI result Body Mass Index 29.0 Const Other: tearful General: cooperative, healthy appearing and no acute distress Orientation/consciousness: patient oriented x3 Limitations: no limitations HENMT Head: Yes normal to inspection and Yes atraumatic Ears: hearing grossly normal bilaterally General nose exam: Normal external nose present Face and sinus: Yes normal facial exam Eyes General: appearance normal, both eyes and all related structures EOM: EOMs intact bilaterally Neck Neck: Yes normal visual inspection and Yes no meningeal signs Resp Effort & Inspection: normal respiratory effort and no respiratory distress Cardio Rate: regular rate GI Inspection: Yes normal to inspection Palpation (GI): Soft to palpation, Tenderness to palpation present (GI) in the epigastrum, in the RLQ and in the RUQ; with no rebound tenderness, no guarding and not rigid General: Yes CVA tenderness on the right Back/Spine/Pelvis Back: CVA tenderness Skin Rashes: no rashes Wounds: no wounds Neuro General: patient oriented x3, tone normal and no meningeal signs Cranial nerves: Yes CN's II-XII intact bilaterally Gait exam (Neuro): Normal gait present Extrem General: Yes normal to inspection Course Course Course Narrative: 1510--no leukocytosis. Chronic anemia. Labs otherwise reassuring. HCG negative. UA negative CT abdomen pelvis wo IV con IMPRESSION: No acute abnormality in the abdomen or pelvis. > on re-evaluation patient is sleeping comfortably in stretcher, reports symptomatic improvement, denies abdominal pain at present. Abdomen is soft and nontender. Suspect passed stone. Plan for discharge home Medical Decision Making Medical Decision Making [facility] Narrative: 43-year-old female with a past medical history of tubal ligation presenting to the ED complaining of right flank pain radiating to right abdomen x this morning. On exam hypertensive likely from pain, tearful, appears uncomfortable, abdomen soft with RUQ/epigastric/RLQ and RCVAT. No rebound or guarding. Concern for renal stone vs cholecystitis/lithiasis vs pancreatitis or appendicitis. Lower suspicion for pyelo, ovarian torsion or TOA Plan: Labs, UA, CT, IVF, pain control Please refer to course for remaining clinical decision making, interpretation of labs/imaging results, and discussions with consultants and/or family members. Differential Diagnosis Differential Diagnoses: The differential diagnosis associated with the presentation includes As above Admission/Observation Consideration of admission/observation: Escalation of care including admission/observation considered Lab Data [facility] Lab Attestation statement: I reviewed the patient's lab results. 06/06/23 12:20 06/06/23 12:20 Labs: Lab Results 06/06/23 06/06/23 Range/Units 12:20 12:59 WBC 6.1 (4.8-10.8) X10*3/uL RBC 4.44 (4.20-5.50) X10*6/uL Hgb 8.5 L (12.0-16.0) g/dl Hct 28.4 L (37.0-47.0) % MCV 64.0 L (80.0-98.0) fL MCH 19.1 L (27.0-33.0) pg MCHC 29.9 L (31.0-35.0) g/dl RDW 19.8 H (11.0-16.0) % Plt Count 320 (160-400) X10*3/uL MPV 8.4 L (9.4-12.3) fL Immature Gran % (Auto) 0.3 (0.0-0.4) % Neut % (Auto) 65.8 (45-73) % Lymph % (Auto) 24.5 (20-40) % Warren % (Auto) 8.0 (2-11) % Eos % (Auto) 1.1 (0-4) % Baso % (Auto) 0.3 (0-2) % Lymph # (Auto) 1.5 (1.2-4.9) X10*3/uL Warren # (Auto) 0.5 (0.1-1.2) X10*3/uL Eos # (Auto) 0.1 (0.0-0.4) X10*3/uL Baso # (Auto) 0.0 (0.0-0.2) X10*3/uL Abs Immat Gran (auto) 0.02 (0.00-0.03) X10*3/uL Absolute Neuts (auto) 4.0 (2.0-8.3) x10*3/uL Absolute Nucleated RBC 0.000 (0.0-0.012) X10*3/uL Nucleated RBC % (auto) 0.0 (0.0-0.2) /100WBC Sodium 138 (135-145) mmol/L Potassium 3.9 (3.3-5.1) mmol/L Chloride 104 (96-108) mmol/L Carbon Dioxide 26 (22-29) mmol/L Anion Gap 12 (12-20) BUN 7 L (9-16) mg/dL Creatinine 0.66 (0.5-1.4) mg/dL Estim Creat Clear Calc 115.9 Estimated GFR > 60 Random Glucose 92 (60-115) mg/dL Calcium 9.1 (8.4-10.2) mg/dL Magnesium 1.8 (1.6-2.6) mg/dL Total Bilirubin 0.3 (0.0-1.0) mg/dL Direct Bilirubin 0.2 (0.0-0.5) mg/dL AST 17 (5-31) U/L ALT 8 (0-31) U/L Alkaline Phosphatase 80 (39-117) U/L Troponin I High Sens < 2.7 (<3.5-17.0) ng/L Total Protein 7.4 (6.5-8.0) g/dL Albumin 4.0 (3.5-5.0) g/dL Lipase 11 (8-78) U/L Beta HCG, Quant < 2 mIU/mL Urine Color Yellow Urine Appearance Clear Urine pH 8.0 (5.0-9.0) Ur Specific [place] 1.010 (1.005-1.025) Urine Protein Negative (Neg-Trace) mg/dL Urine Glucose (UA) Negative (Negative) mg/dL Urine Ketones Negative (Negative) mg/dL Urine Blood Negative (Negative) Urine Nitrite Negative (Negative) Ur Leukocyte Esterase Trace H (Negative) Urine RBC 0-2 (0-2) /HPF Urine WBC 0-5 (0-5) /HPF Ur Squamous Epith Cells 3-5 (0-2) /HPF Urine Bacteria None Seen (None Seen) Hyaline Casts 0-2 (0-2) /LPF Independent Interpretation I performed an independent interpretation of an: CT Scan Radiology Impression Discussion of test interpretation with radiology: I have reviewed the radiologist's reading. External Record Review External record reviewed: Inpatient record, Office record, Outpatient record, Prior outpatient labs, Prior outpatient radiology, Primary care record and Outside ED record Tests considered The following testing was considered but not selected: As above Prescription Management I considered prescription management with: Pain Medication Medications Administered Discontinued Medications Generic Name Dose Route Start Last Admin Trade Name Freq PRN Reason Stop Dose Admin Sodium Chloride 1,000 mls @ 999 mls/hr 06/06/23 12:15 06/06/23 13:52 Ns IV 06/06/23 13:15 Infused .Q1H1M DOMO Infusion Ketorolac Tromethamine 15 mg 06/06/23 12:13 06/06/23 12:25 Ketorolac Tromethamine 15 Mg/Ml Vial IVPUSH 06/06/23 12:14 15 mg ONCE ONE Administration Discharge Plan Discharge Clinical Impression: Abdominal pain Patient Disposition: Home, Self-Care Instructions: Abdominal Pain (ED) Additional Instructions: Your blood work and CT scan were reassuring. We suspect you may have passed a kidney stone Please follow-up with your doctor and urology If her symptoms persist or worsen, pain is unbearable, you are unable to eat or drink have fever or chills return to the ED Prescriptions: No Action ibuprofen 600 mg tablet 600 mg PO Q6H PRN (Reason: pain) Qty: 20 0RF acetaminophen 500 mg tablet 1,000 mg PO TID PRN (Reason: pain) Qty: 30 0RF (DME) cane Device See Rx Instructions .Route Qty: 1 0RF Rx Instructions: As directed lidocaine 5 % adhesive patch,medicated 1 patch topical DAILY PRN (Reason: pain) Qty: 15 0RF Rx Instructions: leave on most painful area for up to 12 hrs darunavir ethanolate [Prezista] 800 mg tablet 800 mg PO DAILY Genvoya [phone] mg tablet 1 tab PO DAILY celecoxib [Celebrex] 200 mg capsule 200 mg PO BID 30 Days Qty: 60 3RF Referrals: [facility] [Provider Group] Shala Shields MD [Primary Care Provider] - Stand Alone Forms: Work/School Release
[2023-06-06 12:23] LABS: MANUAL DIFF FLAG NO
[2023-06-06] MEDS: Ketorolac Tromethamine 15 MG/ML VIAL IVPUSH (12:25)
[2023-06-06 12:26] LABS: Basophils Percent Auto 0.3 % (0-2); Eosinophils Absolute Auto 0.1 X10*3/uL (0.0-0.4); Eosinophils Percent Auto 1.1 % (0-4); Hematocrit 28.4 % (37.0-47.0); Hemoglobin 8.5 g/dl (12.0-16.0); Imm Gran Abs Auto 0.02 X10*3/uL (0.00-0.03); Imm Gran Pct Auto 0.3 % (0.0-0.4); Lymphocytes Absolute Auto 1.5 X10*3/uL (1.2-4.9); Lymphocytes Percent Auto 24.5 % (20-40); Mean Corpuscular HGB Conc 29.9 g/dl (31.0-35.0); Mean Corpuscular Hemoglobin 19.1 pg (27.0-33.0); Mean Platelet Volume 8.4 fL (9.4-12.3); Monocytes Absolute Auto 0.5 X10*3/uL (0.1-1.2); Neutrophils Percent Auto 65.8 % (45-73); Platelet Count 320 X10*3/uL (160-400); Red Blood Count 4.44 X10*6/uL (4.20-5.50); Red Cell Distribution Width 19.8 % (11.0-16.0); White Blood Count 6.1 X10*3/uL (4.8-10.8)
[2023-06-06] MEDS: 0.9 % Sodium Chloride 1,000 ML 999 ML IV (12:27)
[2023-06-06 12:51] LABS: Alanine Aminotransferase 8 U/L (0-31); Alkaline Phosphatase 80 U/L (39-117); Anion Gap 12 (12-20); Aspartate Amino Transferase 17 U/L (5-31); Bilirubin Direct 0.2 mg/dL (0.0-0.5); Bilirubin Total 0.3 mg/dL (0.0-1.0); Blood Urea Nitrogen 7 mg/dL (9-16); Calcium 9.1 mg/dL (8.4-10.2); Carbon Dioxide 26 mmol/L (22-29); Chloride 104 mmol/L (96-108); Creatinine Clr Calc Pharmacy 115.9; Estimated Glomerular Filt Rate > 60; Glucose Random 92 mg/dL (60-115); HCG Quantitative < 2 mIU/mL; Lipase 11 U/L (8-78); Magnesium 1.8 mg/dL (1.6-2.6); Potassium 3.9 mmol/L (3.3-5.1); Sodium 138 mmol/L (135-145); Total Protein 7.4 g/dL (6.5-8.0)
[2023-06-06 13:17] LABS: Appearance Urine Clear; Color Urine Yellow; Glucose Urine UA Negative (Negative); Leukocyte Esterase Urine Trace (Negative); Nitrite Urine Negative (Negative); UMIC TRIGGER UACC YES; Urine Blood Negative (Negative); Urine Ketones Negative (Negative); Urine Protein Negative (Neg-Trace)
[2023-06-06 13:22] LABS: Bacteria Urine None Seen (None Seen); Hyaline Casts Urine 0-2 /LPF (0-2); RBC Urine 0-2 /HPF (0-2); WBC Urine 0-5 /HPF (0-5)
[2023-06-06 15:29] LABS: Troponin-I High Sensitivity < 2.7 ng/L (<3.5-17.0)
[2023-06-06 16:03] VITALS: BP 170/91
== END 2023-06-06 17:34 | disposition home or self-care (01) ==
PROVIDERS: Physician Assistant; Emergency Provider Emergency Medicine; PCP Internal Medicine
DX: R10.9 Unspecified abdominal pain (principal); B20 Human immunodeficiency virus [HIV] disease; I10 Essential (primary) hypertension; Z79.899 Other long term (current) drug therapy
CPT/HCPCS: 36415; 74176; 80048; 80076; 81001; 83690; 83735; 84484; 84702; 85025; 96361; 96374; 99283; 99284; J1885

== ENCOUNTER 2023-06-10 10:56 | Outpatient (REF) | payer OTHER, SELFPAY ==
--- NOTE | ~2023-06-10 | FL_ITS ---
RIGHT HIP STEROID INJECTION INDICATIONS: Right hip pain COMPARISON: CT abdomen and pelvis 06/06/2023. PROCEDURE: Risks and benefits and possible complications were discussed with the patient and the consent form was signed. The patient was placed hip on the fluoroscopy table. The right hip was prepped and draped in normal sterile fashion. 1% buffered lidocaine was used for anesthesia. A 22-gauge spinal needle was used to access the hip joint. Intra-articular position of the needle within the hip joint was verified using 3 cc of Omnipaque 300. A total of 80 mg Medrol and 5 mL 1% lidocaine was then injected into the hip joint. The needle was then removed and a Band-Aid was applied to the injection site. The patient tolerated the procedure well. There were no immediate complications. Single obtained image demonstrates a moderate arthritic changes within the right hip joint with mild sclerosis and subchondral cystic changes of the subchondral superior femoral head and mild irregularity to the chondral surface. There is mild superior joint space narrowing. There are also small marginal acetabular and subcapital osteophytes. In addition, on review of the recent CT, right greater than left hip joint effusions are present. Degenerative changes in the right greater than left SI joints noted, as well as pseudoarticulation of the left transverse process of L5 with the left sacral arina. FL/FL arthrogram hip RT IMPRESSION: 1. Successful Fluoroscopic right hip steroid injection. 2. See above for review of the recent CT exam. The procedure was performed by Darío Howell PA-C, and directly supervised by Dr. Torres.
== END 2023-06-10 10:57 | disposition home or self-care (01) ==
LOC: HO.XRAY 10:56
PROVIDERS: PCP Internal Medicine; Visit Provider Physician Assistant
DX: M16.11 Unilateral primary osteoarthritis, right hip (principal)
CPT/HCPCS: 27093; 73525

== ENCOUNTER → 2023-06-10 10:57 | Outpatient (BNV) | payer OTHER, SELFPAY | PROVIDERS: PCP Internal Medicine; Visit Provider Radiology Diagnostic Radiology | DX: M16.11 Unilateral primary osteoarthritis, right hip (principal) | CPT/HCPCS: 20610; 77002 ==

== ENCOUNTER 2023-06-25 16:03 | Emergency (ER) | payer OTHER, SELFPAY ==
--- NOTE | ~2023-06-25 | XR_ITS ---
EXAMINATION: XR BILATERAL HIPS WITH AP PELVIS CLINICAL INFORMATION: Bilateral hip pain COMPARISON: None available. TECHNIQUE: AP view of the pelvis and single views of each hip were obtained. FINDINGS: There is moderate pixel physis spurring. No visible acute fracture or dislocation seen in the pelvis or the hip joints. There is mild decrease in bilateral hip joint space with mild inferior joint space spurring. Alignment is anatomic. Sacroiliac joints are normal. No abnormal soft tissue calcifications. XR/XR hip BI w PEL1V IMPRESSION: Mild degenerative changes bilateral hip joints.. No visible acute fracture or dislocation seen in the AP pelvis and bilateral hip joints.
[2023-06-25 17:07] VITALS: BP 149/91; PULSE 88; RESP 18; TEMP 36.6; O2SAT 100; BMI 29.0
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
[2023-06-25 22:45] VITALS: BP 167/110; PULSE 76; RESP 16; TEMP 36.6; O2SAT 94
[2023-06-25] MEDS: Ketorolac Tromethamine 30 MG/ML VIAL IM (23:38)
== END 2023-06-26 00:05 | disposition home or self-care (01) ==
PROVIDERS: Emergency Provider Student in an Organized Health Care Education/Training Program; PCP Internal Medicine
DX: M16.0 Bilateral primary osteoarthritis of hip (principal); M25.552 Pain in left hip; M25.551 Pain in right hip
CPT/HCPCS: 73521; 96372; 99283; 99284; J1885

== ENCOUNTER 2023-06-27 08:09 | Outpatient (AMB) | payer OTHER, SELFPAY ==
--- NOTE | 2023-06-27 08:18 | MHC.OFFVIS ---
Intake Intake Visit Reasons: OV-right hip follow up Intake Note: Megan a 43 year old female presents today for a follow up of right hip. Patient reports that she had a fluoroscopic right hip steroid injection on 06/10/23 that made her pain worse. She presented to [facility] on 06/25/23 where she was prescribed prednisone and oxycodone. States missing multiple days of work due to her pain. Finds no relief with Tylenol, ibuprofen, lidocaine patches, or celebrex. Allergies azithromycin Allergy (Verified 06/27/23 08:26) Rash rifabutin Allergy (Verified 06/27/23 08:26) Rash Medication List - Last Reconciled 06/27/23 by Arina Anderson PA-C acetaminophen 1,000 mg (2 x 500 mg) PO TID PRN cane As directed celecoxib (Celebrex) 200 mg PO BID 30 days darunavir (Prezista) 800 mg PO DAILY mclneub-jbq-xowkx-tenof alafen [id number] mg (Genvoya) 1 tab PO DAILY ibuprofen 600 mg PO Q6H PRN lidocaine 5% 1 patch topical DAILY PRN oxycodone 5 mg PO Q8H PRN 3 days prednisone 40 mg (2 x 20 mg) PO DAILY 5 days HPI OV-right hip follow up HPI Details 43 yo female returns to the office today s/p right hip intraarticular injection. She states there was no relief with the injection, she feels this caused her more pain and limitations with activities. She states she has pain with ambulating, she walks with a limp. 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 [facility] Medical History Arthralgia of hip, right Depression HIV (human immunodeficiency virus infection) HTN (hypertension) No known health problems Social History Patient Tobacco Use Status: Never used Tobacco Review of Systems Const All systems reviewed & are unremarkable except as noted in HPI and below Physical Exam Extrem Other: Right hip: Pain with ROM which extends to the buttock region. She has pain with hip flexion. Calf supple, nontender. NVI. Assessment & Plan Assessment & Plan (1) Osteoarthritis of right hip: Code(s): M16.11 - Unilateral primary osteoarthritis, right hip Qualifiers: Osteoarthritis type: primary Qualified Code(s): M16.11 - Unilateral primary osteoarthritis, right hip Plan: At this time, she has failed physical therapy and steroid injection and continues to have limitations with activity. I recommend an appointment with Dr Casey to discuss further options ie: surgical intervention. She is content with this plan . Coding Level of Care Code Est Pt Level 3 (17779) Diagnoses Primary osteoarthritis of right hip M16.11 Osteoarthritis type: primary
== END 2023-06-27 08:45 | disposition home or self-care (01) ==
PROVIDERS: PCP Internal Medicine; Visit Provider Physician Assistant
DX: M16.11 Unilateral primary osteoarthritis, right hip (principal)
CPT/HCPCS: 99213

== ENCOUNTER → 2023-06-27 08:09 | Outpatient (BNVA) | payer OTHER, SELFPAY | PROVIDERS: PCP Internal Medicine; Visit Provider Physician Assistant | DX: M16.11 Unilateral primary osteoarthritis, right hip (principal) | CPT/HCPCS: 99212 ==

== ENCOUNTER 2023-07-10 12:28 | Outpatient (AMB) | payer OTHER, SELFPAY ==
--- NOTE | 2023-07-10 12:30 | A.OFFVIS_ITS ---
Intake Vital Signs 07/10/23 12:31 Height 5 ft 6 in Weight 156 lb BMI 25.2 Intake Visit Reasons: OV - Right Hip Osteoarthritis - Discuss YELITZA Intake Note: Megan is a 43 year old female who presents today for a follow up of right hip osteoarthritis. Patient reports that she had a fluoroscopic right hip steroid injection on 06/10/23 that made her pain worse. She was last seen with Arina Anderson who recommends consult for Total Hip Arthroplasty Allergies azithromycin Allergy (Verified 07/10/23 12:31) Rash rifabutin Allergy (Verified 07/10/23 12:31) Rash HPI OV - Right Hip Osteoarthritis - Discuss YELITZA HPI Details Megan is a 43 year old woman who presents to discuss treatment for her right hip OA. She reports pain with daily activity, and being limited in her ADLs. She describes pain over her entire pelvis bialterally. This extends from the lumbosacral ragion around to the groin and in her ischium. She describes difficulty with akll activity. SHe has know fibromyalgia. 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 She found no relief fro PT or a hip arthrogram on 06/10/23, and says the steroid injection increased her pain. She got no relief from an intra-articualr injection. 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 Resp Other: No audible wheezing Effort & Inspection: normal respiratory effort and able to speak in complete sentences Cardio Other: Radial pulse palpable with no rythmic abnormalities Jugular venous distension: no JVD Back/Spine/Pelvis Cervical Spine: normal cervical lordosis Skin General skin exam: turgor normal Rashes: no rashes Neuro General: patient oriented x3 Extrem Other: + impingement bilaterally right > left Internal rotation limited bilaterally +Stinchfield bilaterally Psych Appearance: grossly normal Mental Status: mental status grossly normal Speech and movement: Normal speech and movement present Affect: normal affect Attitude: cooperative Results Reviewed Results Reviewed: I personally reviewed relevant radiographs. Mild- moderate right hip OA. Mild left hip OA Assessment & Plan Assessment & Plan (1) Osteoarthritis of right hip: Code(s): M16.11 - Unilateral primary osteoarthritis, right hip Qualifiers: Osteoarthritis type: primary Qualified Code(s): M16.11 - Unilateral primary osteoarthritis, right hip Plan: This is a 43 yo F with mild moderate right hip OA. She had an intra-articular injection and describes absolutely no relief. She works in a job that requires sitting on the floor and repetitive standing from a seated position and squatting. She also has fibromyalgia, is 43 and has HIV. All of these are risk factors in arthroplasty. It is very concerning that the hip injection provided no relief, not even for one minute. Her fibromyalgia is likely exacerbating what is mild OA and her daily activitites are making this worse. In a 43 yo arthroplasty is contra indicated unless disease progression is severe. I ordered an MRI to assess the quality of the joint and strongly recommend that she avoid repetitive squatting and sitting on the floor. (2) Fibromyalgia: Code(s): M79.7 - Fibromyalgia Plan Prepared for Otis Casey MD by Wilfredo Conway, chief medical officer, on 07/10/23 at 12:42 PM, EST. Orders: Orders MR hip RT wo con 07/10/23 M16.11 - Unilateral primary osteoarthritis, right hip Coding Level of Care Code Est Pt Level 4 (42464) Diagnoses Primary osteoarthritis of right hip M16.11 Osteoarthritis type: primary Fibromyalgia M79.7
[2023-07-10 12:31] VITALS: BMI 25.2
== END 2023-07-10 12:55 | disposition home or self-care (01) ==
PROVIDERS: PCP Internal Medicine; Visit Provider Orthopaedic Surgery
DX: M16.11 Unilateral primary osteoarthritis, right hip (principal); M79.7 Fibromyalgia
CPT/HCPCS: 99213

== ENCOUNTER → 2023-07-10 12:28 | Outpatient (BNVA) | payer OTHER, SELFPAY | PROVIDERS: PCP Internal Medicine; Visit Provider Orthopaedic Surgery | DX: M16.11 Unilateral primary osteoarthritis, right hip (principal); M79.7 Fibromyalgia | CPT/HCPCS: 99212 ==

== ENCOUNTER 2023-07-27 12:35 | Outpatient (REF) | payer OTHER, SELFPAY ==
--- NOTE | ~2023-07-27 | MR_ITS ---
EXAMINATION: MR HIP WITHOUT CONTRAST, RIGHT CLINICAL INFORMATION: Right hip pain. Arthritis. COMPARISON: Most recent hip radiographs dated 06/25/[address] abdomen/pelvis dated 06/06/2023. TECHNIQUE: MRI of the right hip was obtained using routine sequences on a high-field strength magnet. FINDINGS: ACETABULAR LABRUM: Degenerative tearing throughout the anterosuperior, lateral, and posterosuperior labrum. There is linear fluid signal extending through the base of the anterosuperior labrum, consistent with an undersurface component of the tear. ARTICULAR CARTILAGE/BONE: Diffuse full-thickness articular cartilage loss with femoral head and acetabular subchondral marrow edema and mild subchondral cystic change. Prominent marginal osteophytes. No stress reaction, fracture, or avascular necrosis. No concerning lytic or blastic osseous lesion. Moderate osteoarthritis within the left hip partially visualized on large tgcev-dp-aqhe imaging. Prominent degenerative disc disease and facet arthropathy partially visualized within the lower lumbar spine. Moderate symphysis pubis degenerative arthritis. MUSCLES/TENDONS: Mild gluteus minimus tendinosis with undersurface fluid signal consistent with undersurface partial tearing measuring up to 2.7 cm in craniocaudal dimension. No full-thickness transverse tendon tear or tendon retraction. JOINT FLUID/BURSA: Moderate right hip joint effusion with prominent synovitis. INTRAPELVIC STRUCTURES: Unremarkable. MR/MR hip RT wo con IMPRESSION: 1. Severe right hip osteoarthritis with a moderate joint effusion and prominent synovitis. No stress reaction, fracture, or avascular necrosis. 2. Degenerative tearing throughout the anterosuperior, lateral, and posterosuperior labrum. Undersurface component of the anterosuperior labral tear. 3. Mild gluteus minimus tendinosis with undersurface partial tearing measuring 2.7 cm in craniocaudal dimension. No full-thickness transverse tendon tear or tendon retraction. 4. Moderate left hip osteoarthritis partially visualized on large cijhc-ut-bsrx imaging. Prominent degenerative disc disease and facet arthropathy partially visualized within the lower lumbar spine. Moderate symphysis pubis degenerative arthritis.
== END 2023-07-27 12:36 | disposition home or self-care (01) ==
LOC: HO.MRI 12:35
PROVIDERS: PCP Internal Medicine; Visit Provider Orthopaedic Surgery
DX: M16.11 Unilateral primary osteoarthritis, right hip (principal)
CPT/HCPCS: 73721

== ENCOUNTER 2023-08-11 14:56 | Outpatient (AMB) | payer OTHER, SELFPAY ==
--- NOTE | 2023-08-11 14:58 | MHC.OFFVIS ---
Intake Vital Signs 08/11/23 15:00 Height 5 ft 6 in Weight 156 lb BMI 25.2 Intake Visit Reasons: O/V RT hip MRI rev Intake Note: Megan is a 43 year old female who presents today for an MRI follow up of right hip osteoarthritis. Patient reports that she had a fluoroscopic right hip steroid injection on 06/10/23 that made her pain worse. She also has fibromyalgia, is 43 and has HIV. Patient reports that she is feeling about the same. She was prescribed Tramadol, which is helping her pain Allergies azithromycin Allergy (Verified 08/11/23 14:59) Rash rifabutin Allergy (Verified 08/11/23 14:59) Rash HPI O/V RT hip MRI rev HPI Details Megan returns with right hip pain. She continues to have difficulty with pain. She cannot engage in any of her typical daily activities without discomfort. She has pain with standing from a seated position, getting into and out a bed or a car. She feels the quality of her life is poor. Her pain is mostly right groin and posterolateral hip. She also recently had an MRI of her lumbar spine. 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 Severe right hip osteoarthritis with a moderate joint effusion and prominent synovitis. No stress reaction, fracture, or avascular necrosis. 2. Degenerative tearing throughout the anterosuperior, lateral, and posterosuperior labrum. Undersurface component of the anterosuperior labral tear. 3. Mild gluteus minimus tendinosis with undersurface partial tearing measuring 2.7 cm in craniocaudal dimension. No full-thickness transverse tendon tear or tendon retraction. 4. Moderate left hip osteoarthritis partially visualized on large taqyt-fv-lxsn imaging. Prominent degenerative disc disease and facet arthropathy partially visualized within the lower lumbar spine. Moderate symphysis pubis degenerative arthritis. Assessment & Plan Assessment & Plan (1) Osteoarthritis of right hip: Code(s): M16.11 - Unilateral primary osteoarthritis, right hip Qualifiers: Osteoarthritis type: primary Qualified Code(s): M16.11 - Unilateral primary osteoarthritis, right hip Plan: THis is a 43 yo HIV+ F with severe OA of the right hip. She has fibromyalgia and a hip injection was not helpful. She recently had a lumbar spine MRI but I don't have access to that at this time. With respect to her hip I think she would benefit from arthroplasty. She has been suffering for over one year. She has HIV which does increase infection risk but this is being treated and she states her counts are undetectable. She has fibromyalgia and we are awaiting a lumbar spine MRI as she does describe left radicular symptoms. I recommend we plan for a YELITZA and I will discuss her lumbar spine MRI with her when I get the results. I discussed the risks benefits and alternatives of hip arthroplasty including but not limited to the risk of pain, infection, stiffness, need for further surgery as well as potential medical complications such as blood clots, pulmonary embolism and cardiac complications. Coding Level of Care Code Est Pt Level 4 (77279) Diagnoses Primary osteoarthritis of right hip M16.11 Osteoarthritis type: primary
[2023-08-11 15:00] VITALS: BMI 25.2
== END 2023-08-11 17:00 ==
PROVIDERS: PCP Internal Medicine; Visit Provider Orthopaedic Surgery
DX: M16.11 Unilateral primary osteoarthritis, right hip (principal)
CPT/HCPCS: 99214

== ENCOUNTER → 2023-08-11 14:56 | Outpatient (BNVA) | payer OTHER, SELFPAY | PROVIDERS: PCP Internal Medicine; Visit Provider Orthopaedic Surgery | DX: M16.11 Unilateral primary osteoarthritis, right hip (principal) | CPT/HCPCS: 99212 ==

== ENCOUNTER 2023-08-19 15:54 | Outpatient (REF) | payer OTHER, SELFPAY ==
--- NOTE | ~2023-08-19 | MM_ITS ---
EXAMINATION: MM SCREENING DIGITAL BREAST TOMOSYNTHESIS, BILATERAL CLINICAL INFORMATION: Screening. Asymptomatic. COMPARISON: Mammography: This is a baseline mammogram. TECHNIQUE: Digital breast tomosynthesis is performed in both the craniocaudal and mediolateral oblique views along with computer-aided detection (CAD). Synthesized 2D images are generated from the tomosynthesis. FINDINGS: There are scattered areas of fibroglandular density (ACR BI-RADS breast composition Category b). There are no significant masses, abnormal calcifications, or other abnormalities. MM/MM tomosynthesis screening BI IMPRESSION: No mammographic evidence of malignancy. ASSESSMENT: BI-RADS BI-RADS 1 - Negative RECOMMENDATION: Routine annual mammography screening. 1 year F/U This examination should not preclude the clinical evaluation of a suspicious palpable abnormality. This patient's information was entered into a reminder system with a target due date for their next mammogram.
== END 2023-08-19 15:55 | disposition home or self-care (01) ==
LOC: HO.MAMMO 15:54
PROVIDERS: PCP Internal Medicine; Visit Provider Internal Medicine
DX: Z12.31 Encounter for screening mammogram for malignant neoplasm of breast (principal)
CPT/HCPCS: 77063; 77067

== ENCOUNTER → 2023-08-19 16:00 | Outpatient (BNV) | payer OTHER, SELFPAY | PROVIDERS: PCP Internal Medicine; Visit Provider Radiology Diagnostic Radiology | DX: Z12.31 Encounter for screening mammogram for malignant neoplasm of breast (principal) | CPT/HCPCS: 77063; 77067 ==

== ENCOUNTER 2023-08-29 14:48 | Outpatient (REF) | payer OTHER, SELFPAY ==
--- NOTE | ~2023-08-29 | XR_ITS ---
EXAMINATION: XR LUMBOSACRAL SPINE WITH OBLIQUES CLINICAL INFORMATION: Radiculopathy lumbar region. COMPARISON: X-ray bilateral hips with pelvis 06/25/2023. TECHNIQUE: AP, lateral neutral, flexion and extension views of the lumbar spine. Zipper and presumed other articles of clothing overlie upper and lower portions of the image, obscuring some bony detail. FINDINGS: Moderate levoscoliosis of the lumbar spine. Degenerative changes in the bilateral sacroiliac joints. Degenerative changes in the imaged lower thoracic spine with possible loss of height of lower vertebral bodies which could be evaluated with dedicated views of the thoracic spine. Advanced multilevel degenerative changes in the lumbar spine with multilevel loss of disc space height. Facet arthritis in the ctn-ib-bcwfl lumbar spine. XR/XR lumbar spine 4V min IMPRESSION: 1. Advanced multilevel degenerative disc disease in the lumbar spine. 2. Facet arthritis in the pal-sz-aucvp lumbar spine. 3. Degenerative changes in the bilateral sacroiliac joints. 4. Degenerative changes in the imaged lower thoracic spine with possible loss of height of lower vertebral bodies which could be evaluated with dedicated views of the thoracic spine.
== END 2023-08-29 14:49 | disposition home or self-care (01) ==
LOC: HO.HOSX 14:48
PROVIDERS: PCP Internal Medicine; Visit Provider Physician Assistant
DX: M54.16 Radiculopathy, lumbar region (principal)
CPT/HCPCS: 72110; 99202

== ENCOUNTER 2023-08-29 14:48 | Outpatient (AMB) | payer OTHER, SELFPAY ==
--- NOTE | 2023-08-29 14:57 | HO.SPINEOV ---
Intake Intake Visit Reasons: Lumbar radiculopathy Intake Note: Ms. Turcios is here today c/o back pain. [employer] Hat[employer] Required: No Allergies azithromycin Allergy (Verified 08/29/23 14:57) Rash rifabutin Allergy (Verified 08/29/23 14:57) Rash Assessment & Plan Assessment & Plan (1) Lumbar radiculopathy: Code(s): M54.16 - Radiculopathy, lumbar region Plan: Dear Dr. Casey, Thank you for referring Megan to our office today. She is a pleasant 43-year-old female who comes in today with a chief complaint of low back pain with shooting pains into her bilateral lower extremities. She states this has been ongoing for the past 2 years and is slowly worsening. When asked to describe her radiculopathy she runs her hands over bilateral posterior thighs and down the sides of her calves. She also reports that sometimes the pain shoots into her groin and over the top of her foot. She reports that walking exacerbates her pain, and states that she has to stop and rest frequently. She iss no longer able to go to the grocery store needs to send her children to do her grocery shopping. She feels her activities of daily living are severely restricted. She has been to physical therapy in the past which she felt was not helpful for her. She reports she recently had cortisone injections completed in her right hip which she feels were not helpful to relieve her pain. She is attempted to utilize a plethora of wqhv-qgx-fdldzpa remedies including ibuprofen, Tylenol, and knus-xyh-zaembjj pain patches/gels with only modest relief. PMH: Hypertension, fibromyalgia, depression, HIV. Social hx: Patient does not smoke, reports no substance use. Medications: Acetaminophen, Prezista, Genvoya, tramadol. Allergies: Azithromycin, rifabutin. Physical exam: The patient has 5/5 strength in her upper and lower extremities, however does elicit pain when eliciting full strength in her lower extremities. Her sensation is grossly intact. Her patellar reflex is 1+ hypoactive bilaterally. The rest of her reflexes are 2+ intact. She ambulates with an antalgic gait, and rises from a seated position utilizing her chair for support. (-) Sudeep's, (-) Rico finger test, (-) Gonzalez's, (-) clonus, (-) straight leg raise bilaterally. No pain to direct palpation of the lumbar spine. Imaging review: MRI of the lumbar spine completed here at [facility] shows diffuse spondylosis of the lumbar spine, far more advanced than I would expect to see in an individual who is 43 years old. She has mild bilateral foraminal stenosis at L1-2, moderate-severe right-sided foraminal stenosis at L2-3, and mild-moderate left-sided foraminal stenosis at L2-3. Additionally, there is severe central canal and bilateral foraminal stenosis at L4-5. Impression: Megan is a pleasant 43-year-old female comes in today with a chief complaint of low back pain with radiation into her bilateral lower extremities. The way in which she describes her radiation is classic for an L5 dermatomal distribution. On MRI imaging she has severe compression of the L5 nerve roots bilaterally I believe this is a likely cause of her shooting radicular type pain. I would like to send the patient for a set of flexion-extension x-rays to ensure there is no instability or movement changes in her lumbar spine. I believe this patient would be a good candidate for an L4-5 lumbar decompression. I will review these films and the patient history with Dr. Manjarrez when he returns from vacation next week. After this I will update the patient with the surgical plan. 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 She would prefer to have her surgery at the end of October if possible as she is not able to take any time off work. Thank you for allowing us to care for your patient. The total time spent with this visit with this patient was 45 minutes reviewing history, physical exam, MRI imaging review, and implementation of treatment plan or further diagnostic testing Nba Manjarrez MD,PhD [facility] Orders: Orders XR lumbar spine 4V min Today M54.16 - Radiculopathy, lumbar region Coding Level of Care Code New Pt Level 4 (16856) Diagnoses Lumbar radiculopathy M54.16
== END 2023-08-29 16:00 | disposition home or self-care (01) ==
PROVIDERS: PCP Internal Medicine; Referring Provider Orthopaedic Surgery; Visit Provider Physician Assistant
DX: M54.16 Radiculopathy, lumbar region (principal)
CPT/HCPCS: 99204

== ENCOUNTER → 2023-09-26 08:57 | Outpatient (BNVA) | payer OTHER, SELFPAY | PROVIDERS: PCP Internal Medicine; Visit Provider Orthopaedic Surgery ==

== ENCOUNTER 2023-10-16 14:08 | Outpatient (AMB) | payer OTHER, SELFPAY ==
--- NOTE | 2023-10-16 14:09 | MHC.OFFVIS ---
Intake Visit Reasons: OV - Right Hip OA - YELITZA Cancelled Intake Note: Megan is a 43 year old female who presents today for a follow up of right hip osteoarthritis. She was scheduled for Right Hip Arthroplasty on 10/28/23 but patient canceled as she would like to discuss other options Allergies azithromycin Allergy (Verified 08/29/23 14:57) Rash rifabutin Allergy (Verified 08/29/23 14:57) Rash HPI HPI OV - Right Hip OA - YELITZA Cancelled: Details: Megan comes in today complaining of bilateral leg numbness and tingling. She has spine surgery scheduled. She does have right and left groin pain but this is not as bad as the leg pain. She states she is not sleeping and she is upset that she had to come for a navigation visit as it was cancelled because of her impending spine surgery. 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
== END 2023-10-16 16:00 ==
PROVIDERS: PCP Internal Medicine; Visit Provider Orthopaedic Surgery
DX: M16.6 Other bilateral secondary osteoarthritis of hip (principal)
CPT/HCPCS: 99213

== ENCOUNTER → 2023-10-16 14:08 | Outpatient (BNVA) | payer OTHER, SELFPAY | PROVIDERS: PCP Internal Medicine; Visit Provider Orthopaedic Surgery | DX: M16.6 Other bilateral secondary osteoarthritis of hip (principal) | CPT/HCPCS: 99212 ==

== ENCOUNTER → 2023-11-05 12:44 | Outpatient (BNV) | payer OTHER, SELFPAY | PROVIDERS: Admitting Provider Neurological Surgery; PCP Internal Medicine; Visit Provider Internal Medicine Cardiovascular Disease | DX: Z01.818 Encounter for other preprocedural examination (principal) | CPT/HCPCS: 93010 ==

== ENCOUNTER 2023-11-18 06:37 | Inpatient (IN) | payer OTHER, SELFPAY ==
--- NOTE | 2023-11-05 | ECG_ITS ---
Test Reason : PRE OP Blood Pressure : / mmHG Vent. Rate : 077 BPM Atrial Rate : 077 BPM P-R Int : 180 ms QRS Dur : 100 ms QT Int : 398 ms P-R-T Axes : 014 060 037 degrees QTc Int : 450 ms Normal sinus rhythm Minimal voltage criteria for LVH, may be normal variant ( Sokolow-Rodriguez ) Borderline ECG When compared to the previous EKG of No significant changes seen Referred By: Carrie De La Cruz Electronically Signed By:Chong Laughlin
[2023-11-05 11:41] VITALS: BP 134/99; PULSE 80; RESP 18; O2SAT 98
[2023-11-18] VITALS (25 sets, daily range): BP systolic 121–172; BP diastolic 75–110; PULSE 64–87; RESP 8–23; TEMP 36–37.1; O2SAT 97–100; BMI 27.7
--- NOTE | ~2023-11-18 | FL_ITS ---
EXAMINATION: XR FLUOROSCOPY WITH IMAGES CLINICAL INFORMATION: Interbody lumbar spine fusion COMPARISON: Lumbar spine radiograph from 08/29/2023 TECHNIQUE: Fluoroscopy Supervised By: Josseline Fluoroscopy Time: 0.8 minutes. Cumulative Dose: 64.1 mGy. DAP: 17.3 Gycm2. Images: 3. FINDINGS: Images obtained during placement of pedicle sclerosis at the level of L5-S1 bilaterally with placement of interbody prosthesis FL/FL guidance in OR IMPRESSION: Satisfactory positioning of hardware
--- OUTSIDE RECORDS SUMMARY | 2023-11-18 06:39 | XMS_ITS | Continuity of Care Document ---
Author Organization [facility] Address [address] [place] [address]- Care Team Providers Care Printer Repair Technician Name Role Phone Shala Shields MD Primary Care Physician [facility] Date[facility]s): 09/13/21 - 10/13/21 [facility] [address] [place] [id number] Attending Physician: AdmJairo he Admitting Physician: Admtr, Jairo Referring Physician: Admtr, [id number] Allergies, Adverse Reactions, Alerts Substance Reaction Severity Status azithromycin 1 Persistent Mild Active rifabutin Rash Persistent Moderate Active amLODIPine 2 Active 1Rash 2Had Lower extremity ankle swelling with 10mg. Immunizations Given and Recorded Vaccine Date Status Refusal Reason hepatitis B adult vaccine 06/28/21 Given pneumococcal 23-valent vaccine 06/28/21 Given pneumococcal 23-valent vaccine 04/27/13 Given influenza virus vaccine, inactivated 03/08/21 Give n influenza virus vaccine, inactivated 03/16/20 Give n influenza virus vaccine, inactivated 05/18/19 Montez rded influenza virus vaccine, inactivated 1 03/25/18 Gi farhan influenza virus vaccine, inactivated 2 05/16/17 Gi farhan influenza virus vaccine, inactivated 3 06/18/16 Gi farhan influenza virus vaccine, inactivated 4 04/04/15 Gi farhan influenza virus vaccine, inactivated 5 06/22/14 Gi farhan influenza virus vaccine, inactivated 6 04/08/13 Gi farhan influenza virus vaccine, inactivated 7 03/12/12 Gi farhan influenza virus vaccine, inactivated 8 02/11/11 Gi farhan influenza virus vaccine, inactivated 9 03/20/10 Gi farhan SARS-CoV-2 (COVID-19) mRNA BNT-162b2 vac 03/08/21 Given SARS-CoV-2 (COVID-19) mRNA BNT-162b2 vac 02/15/21 Given pneumococcal 13-valent vaccine 10 05/21/17 Given tetanus/diphtheria/pertussis, acel(Tdap) 11 03/20/10 Given 1Admin Note: Influenza vaccine 2Admin Note: Influenza vaccine 3Admin Note: Influenza vaccine 4Admin Note: Influenza vaccine 5Admin Note: Influenza vaccine 6Admin Note: vis given 12/11/2012 7Admin Note: VIS GIVEN DATED: 11/18/11 8Admin Note: VIS GIVEN MALTESE 2011-04 9Admin Note: vis given vis date 12/26/2009 10Admin Note: Prevnar 11Admin Note: VIS GIVEN VIS DATE 03/26 Medications Bactrim DS 800 mg-160 mg oral tablet 1 tablet, By Mouth, Daily, # 30 tablet, 5 Refills, Maintenance, 01/25/21 10:04:00 EDT, Tablet, [facility], Partial fill upon patient request if the prescription is for a schedule II opioid drug., 1 tablet By Mouth Daily, 167.6, cm, 09... Start Date: 01/25/21 Status: Ordered Blood Pressure Monitor See Instructions, # 1 Unknown, Maintenance, Check BP 3x Weekly and Document Dx: HTN (I10); Lisinopril 10mg 1x Daily Duration: Lifetime *Please Note Pt Does Not Posess Medical Knowledge To Use BP Cuff/Stethoscope, 12/26/20 15:31:00 EDT, Supply Start Date: 12/26/20 Status: Ordered Carafate 1 gm/10 ml oral suspension 10 mL = 1 Gm, By Mouth, 3 times a day before meals and bedtime, # 1,120 mL, 11 Refills, Maintenance, 02/02/21 17:36:00 EDT, [facility], replaced tablets by suspension, 167.6, cm, 02/02/21 13:00:00 EDT, Height, 69.3, kg, 02/02/21 13:00... Start Date: 02/02/21 Stop Date: 01/04/22 Status: Ordered Colace sodium 100 mg oral capsule 100 mg, 1, capsule, By Mouth, 2 times a day, PRN, # 60 capsule, Refills 11, Tot. Refills 11, Maintenance, for constipation, 02/08/21 20:01:00 EDT, Route to Pharmacy Electronically, [facility]/pharmacy #[id number], Partial fill upon patient request if the prescript... Start Date: 02/08/21 Status: Ordered darunavir 800 mg oral tablet 1 tablet = 800 mg, By Mouth, Daily, with food, pls get labs done for more refills, orders in!, # 30tablet, 0 Refills, Maintenance, 09/13/21 15:33:00 EDT, Tablet, [facility], Partialfill upon patient request if the prescription is fo... Start Date: 09/13/21 Status: Ordered ferrous sulfate 325 mg oral enteric coated tablet 325 mg, 1, tablet, By Mouth, Daily, # 30 tablet, Refills 11, Tot. Refills 11, Maintenance, 03/02/2112:59:00 EDT, Route to Pharmacy Electronically, [facility], Partial fill upon patient request if the prescription is for a schedule II... Start Date: 03/02/21 Status: Ordered Genvoya oral tablet 1 tablet, By Mouth, Daily, with food, pls get labs done for more refills, orders in!, # 30 tablet, 0 Refills, Maintenance, 09/13/21 15:33:00 EDT, Tablet, [facility], Partial fill upon patient request if the prescription is for a sched... Start Date: 09/13/21 Status: Ordered hydrochlorothiazide-lisinopril 25 mg-20 mg oral tablet 1 tablet, By Mouth, Daily, # 30 tablet, 4 Refills, Maintenance, 06/28/21 16:48:00 EST, Tablet, [facility], d/c lisinopril 40 mg - change to combo med, 1 tablet By Mouth Daily, 167.6,cm, 02/19/21 16:01:00 EDT, Height, 69.3, kg, ... Start Date: 06/28/21 Status: Ordered MiraLax oral powder for reconstitution = 17 Gm, By Mouth, Daily, PRN Constipation, dissolve in water before taking, # 527 Gm, 11 Refills, Maintenance, 02/08/21 20:01:00 EDT, REC Powder, [facility]/pharmacy #[id number], Partial fill upon patient request if the prescription is for a schedule II opioid dr... Start Date: 02/08/21 Status: Ordered mirtazapine 15 mg oral tablet 1 tablet = 15 mg, By Mouth, Daily at bedtime, # 30 tablet, 4 Refills, Maintenance, 02/19/21 16:53:00 EDT, Tablet, [facility], increase dose, 167.6, cm, 02/19/21 16:01:00 EDT, Height,69.3, kg, 02/02/21 13:00:00 EDT, Dry Weight Start Date: 02/19/21 Stop Date: 07/19/21 Status: Ordered Misc Rx Refills 0, Maintenance, Calcium/Mg/ Zinc 1 tablet daily, 01/23/21 17:47:00 EDT, Supply Start Date: 01/23/21 Status: Ordered Multivitamin 1 tablet, By Mouth, Daily, 0 Refills, Maintenance, 01/23/21 17:48:00 EDT, Partial fill upon patientrequest if the prescription is for a schedule II opioid drug. Start Date: 01/23/21 Status: Ordered pantoprazole 40 mg oral delayed release tablet = 40 mg, By Mouth, 2 times a day, # 60 tablet, 11 Refills, Maintenance, 02/02/21 17:36:00 EDT, EC Tablet, please change q d script to BID, 167.6, cm, 02/02/21 13:00:00 EDT, Height, 69.3, kg, 02/02/2113:00:00 EDT, Dry Weight Start Date: 02/02/21 Stop Date: 01/28/22 Status: Ordered polyethylene glycol 3350 oral powder for reconstitution = 17 Gm, By Mouth, Daily, PRN Constipation, dissolve in water before taking Take as needed for constipation., # 255 Gm, 1 Refills, Acute 12/16/21 10:56:00 EDT, 12/19/20 10:56:00 EDT, REC Powder, [facility]/pharmacy #[id number], Partial fill upon patient request... Start Date: 12/19/20 Stop Date: 12/16/21 Status: Ordered Thera oral tablet 1 tablet, By Mouth, Daily, # 30 tablet, 11 Refills, Maintenance, 03/09/21 16:13:00 EDT, Tablet, [facility], Partial fill upon patient request if the prescription is for a schedule IIopioid drug., 1 tablet By Mouth Daily, 167.6, cm, 1... Start Date: 03/09/21 Status: Ordered Tylenol 325 mg oral tablet 650 mg, 2, tablet, By Mouth, Every 4 hours, PRN, # 24 tablet, Refills 1, Tot. Refills 1, Maintenance, for fever, 02/02/21 14:41:00 EDT, Route to Pharmacy Electronically, [facility]/pharmacy #[id number], Partial fill upon patient request if the prescription is for... Start Date: 02/02/21 Status: Ordered Problem List Condition Effective Dates Status Health Status Inform ant Anemia(Confirmed) Active Cervical dysplasia(Confirmed) Active Depression(Confirmed) Active Erosive esophagitis - EGD 01/2020(Confirmed) Active Esophageal ulcer(Confirmed) 1 Active Esophagitis, CMV - EDG 0, CMV ulcer(Confirmed) Active Abnormal uterine bleeding(Confirmed) Active HSV(Confirmed) Active HIV disease(Confirmed) Active Hypertension(Confirmed) Active Urinary incontinence(Confirmed) Active 1EGD 07/2010 - likely apthous ulcers with very morbid 2 weeks of weight loss and requiring IV fluids Social History Social History Type Response Smoking Status Never smoker; Tobacc o user in household: No entered on: 01/26/15 Sex
--- OUTSIDE RECORDS SUMMARY | 2023-11-18 06:39 | XMS_ITS | Continuity of Care Document ---
Author Organization [facility] Address [address] [place] [address]- Care Team Providers Care Press Box Custodian Name Role Phone Cornelius REDDY, Shala Kuo Primary Care Physician [facility]counter [facility] Date(s): 11/21/20 - 12/21/20 [facility] [address], [place] [id number] Allergies, Adverse Reactions, Alerts Substance Reaction Severity Status azithromycin 1 Persistent Mild Active rifabutin Rash Persistent Moderate Active amLODIPine 2 Active 1Rash 2Had Lower extremity ankle swelling with 10mg. Immunizations Given and Recorded Vaccine Date Status Refusal Reason influenza virus vaccine, inactivated 03/16/20 Give n [...] virus vaccine, inactivated 9 03/20/10 Gi farhan pneumococcal 13-valent vaccine 10 05/21/17 Given pneumococcal 23-valent vaccine 04/27/13 Given tetanus/diphtheria/pertussis, acel(Tdap) 11 03/20/10 Given 1Admin Note: Influenza vaccine 2Admin Note: Influenza vaccine 3Admin Note: Influenza vaccine 4Admin Note: Influenza vaccine 5Admin Note: Influenza vaccine 6Admin Note: vis given 12/11/2012 7Admin Note: VIS GIVEN DATED: 11/18/11 8Admin Note: VIS GIVEN MACEDONIAN 2010- 9Admin Note: vis given vis date 12/26/2009 10Admin Note: Prevnar 11Admin Note: VIS GIVEN VIS DATE 03/26 Medications aluminum hydroxide/magnesium hydroxide/simethicone 200 mg-200 mg-20 mg/5 mL oral suspension 10 mL, By Mouth, 4 times a day, PRN Dyspepsia, for 7 days, # 150 mL, 0 Refills, Acute 12/22/20 10:43:00 EDT, 12/15/20 10:43:00 EDT, Suspension, [facility], Partial fill upon patient request if the prescription is for a schedule II opioid... Start Date: 12/15/20 Stop Date: 12/22/20 Status: Ordered Blood Pressure Monitor See Instructions, # 1 Unknown, Maintenance, Measure Blood pressure 3 times weekly and record them.,12/19/20 11:54:00 EDT, Supply Start Date: 12/19/20 Status: Ordered Canceled amlodipine due to lower extremity swelling Canceled amlodipine due to lower extremity swelling, See Instructions, # 1 Unknown, Refills 0, Tot.Refills 0, Maintenance, Canceled amlodipine due to lower extremity swelling, 12/20/20 8:01:00 EDT, Supply, 166, cm, 12/19/20 9:44:00 EDT, Height, 66.9,... Start Date: 12/20/20 Status: Ordered Carafate 1 gm/10 ml oral suspension 10 mL = 1 Gm, By Mouth, 3 times a day before meals and bedtime, # 1,120 mL, 1 Refills, Maintenance,12/19/20 23:29:00 EDT, [facility]/pharmacy #[id number], replaced tablets by suspension, 166, cm, 12/19/20 9:44:00 EDT, Height, 66.9, kg, 12/12/20 19:05:00 EDT, Dry... Start Date: 12/19/20 Stop Date: 02/13/21 Status: Ordered ferrous sulfate 325 mg oral enteric coated tablet 325 mg, 1, tablet, By Mouth, Daily, # 90 tablet, Refills 1, Tot. Refills 1, Maintenance, 12/19/20 10:55:00 EDT, Route to Pharmacy Electronically, [facility]/pharmacy #[id number], Partial fill upon patient requestif the prescription is for a schedule II opioid sudhir... Start Date: 12/19/20 Status: Ordered lisinopril 10 mg oral tablet 10 mg, 1, tablet, By Mouth, Daily, # 30 tablet, Refills 0, Tot. Refills 0, Maintenance, 12/15/20 10:44:00 EDT, Route to Pharmacy Electronically, [facility], Partial fill upon patient request if the prescription is for a schedule II opioi... Start Date: 12/15/20 Stop Date: 01/14/21 Status: Ordered mirtazapine 15 mg oral tablet 0.5 tablet = 7.5 mg, By Mouth, Daily at bedtime, # 15 tablet, 0 Refills, Maintenance, 12/15/20 10:44:00 EDT, Tablet, [facility], Partial fill upon patient request if the prescription isfor a schedule II opioid drug., 166, cm, 12/15/20 7... Start Date: 12/15/20 Stop Date: 01/14/21 Status: Ordered pantoprazole 40 mg oral delayed release tablet = 40 mg, By Mouth, 2 times a day, # 60 tablet, 1 Refills, Maintenance, 12/19/20 23:28:00 EDT, EC Tablet, please change q d script to BID, 166, cm, 12/19/20 9:44:00 EDT, Height, 66.9, kg, 12/12/20 19:05:00 EDT, Dry Weight Start Date: 12/19/20 Stop Date: 02/17/21 Status: Ordered polyethylene glycol 3350 oral powder for reconstitution = 17 Gm, By Mouth, Daily, PRN Constipation, dissolve in water before taking Take as needed for constipation., # 255 Gm, 1 Refills, Acute 12/16/21 10:56:00 EDT, 12/19/20 10:56:00 EDT, REC Powder, [facility]/pharmacy #[id number], Partial fill upon patient request... Start Date: 12/19/20 Stop Date: 12/16/21 Status: Ordered Senna 8.6 mg oral tablet 17.2 mg, 2, tablet, By Mouth, Daily, for 10 days, # 20 tablet, Refills 0, Tot. Refills 0, Acute, 12/25/20 10:46:00 EDT, 12/15/20 10:46:00 EDT, Route to Pharmacy Electronically, [facility] Tablet, Partial fill upon patient request if the... Start Date: 12/15/20 Stop Date: 12/25/20 Status: Ordered sulfamethoxazole-trimethoprim 800 mg-160 mg oral tablet = 160 mg, By Mouth, Daily, for 30 days, # 30 tablet, 0 Refills, Acute 01/14/21 10:48:00 EDT, 12/15/20 10:48:00 EDT, Tablet, [facility], Partial fill upon patient request if the prescription is for a schedule II opioid drug., 160 mg By Mo... Start Date: 12/15/20 Stop Date: 01/14/21 Status: Ordered thiamine 100 mg oral tablet 100 mg, 1, tablet, By Mouth, Daily, for 14 days, # 14 tablet, Refills 0, Tot. Refills 0, Acute 12/29/20 10:46:00 EDT, 12/15/20 10:46:00 EDT, Route to Pharmacy Electronically, [facility], Partial fill upon patient request if the prescript... Start Date: 12/15/20 Stop Date: 12/29/20 Status: Ordered Tylenol 325 mg oral tablet 650 mg, 2, tablet, By Mouth, Every 6 hours, PRN, for 7 days, # 24 tablet, Refills 0, Tot. Refills 0, Acute 12/22/20 10:43:00 EDT, Pain , Moderate, 12/15/20 10:43:00 EDT, Route to Pharmacy Electronically, [facility], Partial fill upon pat... Start Date: 12/15/20 Stop Date: 12/22/20 Status: Ordered valganciclovir 450 mg oral tablet 900 mg, 2, tablet, By Mouth, 2 times a day, for 30 days, # 120 tablet, Refills 0, Tot. Refills 0, Acute 01/14/21 10:48:00 EDT, 12/15/20 10:48:00 EDT, Route to Pharmacy Electronically, [facility], Partial fill upon patient request if the... Start Date: 12/15/20 Stop Date: 01/14/21 Status: Ordered Problem List Condition Effective Dates Status Health Status Inform ant Anemia(Confirmed) Active Cervical dysplasia(Confirmed) Active Depression(Confirmed) Active Erosive esophagitis - EGD 01/2020(Confirmed) Active Esophageal ulcer(Confirmed) 1 Active Esophagitis, CMV - EDG 0, CMV ulcer(Confirmed) Active Abnormal uterine bleeding(Confirmed) Active HSV(Confirmed) Active HIV disease(Confirmed) Active Hypertension(Confirmed) Active Simple obesity(Confirmed) Active Urinary incontinence(Confirmed) Active 1EGD 07/2010 - likely apthous ulcers with very morbid 2 weeks of weight loss and requiring IV fluids Social History Social History Type Response Smoking Status Never smoker; Tobacc o user in household: No entered on: 01/26/15 Sex
--- OUTSIDE RECORDS SUMMARY | 2023-11-18 06:39 | XMS_ITS | Continuity of Care Document ---
Author Organization [facility] y Address [address] [place] [address]- Care Team Providers Care General Studies Program Chair Name Role Phone Shala Shields MD Primary Care Physician Encounter [facility] Date(s): 06/17/22 - 07/26/22 [facility] [address] [place] [address]- Attending Physician: Darío Diehl MD Admitting Physician: Darío Diehl MD Allergies, Adverse Reactions, Alerts Substance Reaction Severity Status azithromycin 1 Persistent Mild Active rifabutin Rash Persistent Moderate Active amLODIPine 2 Active 1Rash 2Had Lower extremity ankle swelling with 10mg. Immunizations Given and Recorded Vaccine Date Status Refusal Reason SARS-CoV-2 (COVID-19) mRNA-1273 vaccine 04/04/22 G iven influenza virus vaccine, inactivated 02/22/22 Give n influenza virus vaccine, inactivated 03/08/21 Give n [...] 02/11/11 Gi farhan influenza virus vaccine, inactivated 03/20/10 Gi farhan tetanus-diphtheria toxoids (Td) 11/13/21 Given hepatitis B adult vaccine 06/28/21 Given pneumococcal 23-valent vaccine 06/28/21 Given pneumococcal 23-valent vaccine 04/27/13 Given SARS-CoV-2 (COVID-19) mRNA BNT-162b2 vac 03/08/21 Given SARS-CoV-2 (COVID-19) mRNA BNT-162b2 vac 02/15/21 Given pneumococcal 13-valent vaccine 10 05/21/17 Given tetanus/diphtheria/pertussis, acel(Tdap) 11 03/20/10 Given 1Admin Note: Influenza vaccine 2Admin Note: Influenza vaccine 3Admin Note: Influenza vaccine 4Admin Note: Influenza vaccine 5Admin Note: Influenza vaccine 6Admin Note: vis given 12/11/2012 7Admin Note: VIS GIVEN DATED: 11/18/11 8Admin Note: VIS GIVEN SYRIAN 2011-04 9Admin Note: vis given vis date 12/26/2009 10Admin Note: Prevnar 11Admin Note: VIS GIVEN VIS DATE 03/26 Medications acetaminophen 325 mg oral tablet 650 mg, 2, tablet, By Mouth, 3 times a day, PRN, # 180 tablet, Refills 11, Tot. Refills 11, Maintenance, as needed for fever, 01/28/22 14:53:00 EDT, Route to Pharmacy Electronically, [facility], Partial fill upon patient request if th... Start Date: 01/28/22 Status: Ordered Blood Pressure Monitor Blood Pressure Monitor, See Instructions, # 1 each, Refills 0, Tot. Refills 0, Maintenance, Check BP 1x Weekly, 2 Hours After Morning Medications and Document Dx: HTN (I10); HCTZ-Olmesartan 25mg-40mg*Medication Titration, 04/05/22 11:54:00 EST, [place]... Start Date: 04/05/22 Status: Ordered Blood Pressure Monitor See Instructions, [...] bedtime, # 1,120 mL, 11 Refills, Maintenance, 03/29/22 11:16:00 EST, [facility], replaced tablets by suspension, 167.6, cm, 03/05/22 9:57:00 EDT, Height, 69.3, kg, 02/02/21 13:00:... Start Date: 03/29/22 Stop Date: 02/28/23 Status: Ordered Colace sodium 100 mg oral capsule 100 mg, 1, capsule, By Mouth, 2 times a day, PRN, # 60 capsule, Refills 11, Tot. Refills 11, Maintenance, for constipation, 03/29/22 11:16:00 EST, Route to Pharmacy Electronically, [facility], Partial fill upon patient request if the... Start Date: 03/29/22 Status: Ordered darunavir 800 mg oral tablet 1 tablet = 800 mg, By Mouth, Daily, with food, please get labs before refills, # 90 tablet, 3 Refills, Maintenance, 11/28/21 12:11:00 EDT, Tablet, [facility], Partial fill upon patient request if the prescription is for a schedule II... Start Date: 11/28/21 Status: Ordered diclofenac 1% topical gel 1 application, Topically, 4 times a day, # 100 Gm, 11 Refills, Maintenance, 12/06/21 19:06:00 EDT, Gel, [facility]/pharmacy #[id number], Partial fill upon patient request if the prescription is for a schedule II opioid drug., 167.6, cm, 12/06/21 18:07:00 EDT, [place]... Start Date: 12/06/21 Status: Ordered duloxetine 60 mg oral enteric coated capsule 1 capsule = 60 mg, By Mouth, Daily, # 30 capsule, 11 Refills, Maintenance, 03/05/22 12:42:00 EDT, EC Capsule, [facility], Partial fill upon patient request if the prescription is fora schedule II opioid drug., 167.6, cm, 03/05/22 9:5... Start Date: 03/05/22 Status: Ordered ferrous sulfate 325 mg oral enteric coated tablet 325 mg, 1, tablet, By Mouth, Every other day, # 30 tablet, Refills 11, Tot. Refills 11, Maintenance, 12/06/21 19:06:00 EDT, Route to Pharmacy Electronically, [facility]/pharmacy #[id number], Partial fill upon patient request if the prescription is for a schedule I... Start Date: 12/06/21 Status: Ordered Genvoya oral tablet 1 tablet, By Mouth, Daily, with food, please get labs before refills, # 90 tablet, 3 Refills, Maintenance, 11/28/21 12:10:00 EDT, Tablet, [facility], Partial fill upon patient request if the prescription is for a schedule II opioid drShilo. Start Date: 11/28/21 Status: Ordered hydrochlorothiazide-olmesartan 25 mg-40 mg oral tablet 1 tablet, By Mouth, Daily, # 30 tablet, 4 Refills, Maintenance, 04/04/22 19:39:00 EST, Tablet, [facility], d/c HCTZ/lisinopril, 1 tablet By Mouth Daily, 167.6, cm, 04/04/22 19:29:00 EST, Height, 69.3, kg, 02/02/21 13:00:00 EDT, Dry We... Start Date: 04/04/22 Status: Ordered metroNIDAZOLE 0.75% topical gel 1 applicator, Vaginally, Daily, # 70 Gm, 0 Refills, Maintenance, 11/20/21 14:08:00 EDT, [facility], Partial fill upon patient request if the prescription is for a schedule II opioid drug., 1 applicator Vaginally Daily,x5 days, 167.6,... Start Date: 11/20/21 Stop Date: 11/25/21 Status: Ordered MiraLax oral powder for reconstitution = 17 Gm, By Mouth, Daily, PRN Constipation, dissolve in water before taking, # 527 Gm, 11 Refills, Maintenance, 03/29/22 11:16:00 EST, REC Powder, [facility], Partial fill upon patient request if the prescription is for a schedule II... Start Date: 03/29/22 Status: Ordered mirtazapine 15 mg oral tablet 1 tablet = 15 mg, By Mouth, Daily at bedtime, please get labs before refills, # 30 tablet, 11 Refills, Maintenance, 03/28/22 20:40:00 EST, Tablet, [facility], increase dose, 167.6, cm, 03/05/22 9:57:00 EDT, Height, 69.3, kg, 02/02/21... Start Date: 03/28/22 Stop Date: 03/23/23 Status: Ordered [facility] Refills 0, Maintenance, Calcium/Mg/ Zinc 1 tablet daily, 01/23/21 17:47:00 EDT, Supply Start Date: 01/23/21 Status: Ordered pantoprazole 40 mg oral delayed release tablet = 40 mg, By Mouth, 2 times a day, # 60 tablet, 11 Refills, Maintenance, 02/27/22 15:50:00 EDT, EC Tablet, please change q d script to BID, 167.6, cm, 01/16/22 9:58:00 EDT, Height, 69.3, kg, 02/02/21 13:00:00 EDT, Dry Weight Start Date: 02/27/22 Stop Date: 02/22/23 Status: Ordered Shingrix intramuscular injection = 0.5 mL, Intramuscular, Once, repeat dose in 2 to 6 months, # 2 each, 0 Refills, Soft Stop, 06/06/22 10:12:00 EST, Powder[facility] fill upon patient request if the prescription is for a schedule II opioid drug., 0.5 mL Int... Start Date: 06/06/22 Status: Ordered Thera oral tablet 1 tablet, By Mouth, Daily, # 30 tablet, 11 Refills, Maintenance, 03/29/22 11:15:00 EST, Tablet, [facility], Partial fill upon patient request if the prescription is for a schedule IIopioid drug., 1 tablet By Mouth Daily, 167.6, cm, 1... Start Date: 03/29/22 Status: Ordered Wellbutrin XL 300 mg/24 hours oral tablet, extended release 1 tablet = 300 mg, By Mouth, Daily, # 30 tablet, 4 Refills, Maintenance, 04/04/22 19:36:00 EST, ER Tablet, [facility], Partial fill upon patient request if the prescription is for a schedule II opioid drug., 167.6, cm, 04/04/22 19:29:... Start Date: 04/04/22 Status: Ordered Problem List Condition Confirmation Course Effective Dates Status Health St atus Informant Anemia Confirmed Active Cervical dysplasia Confirmed Active Erosive esophagitis - EGD 01/2020 Confirmed Active Esophageal ulcer 1 Confirmed Active Esophagitis, CMV - EDG 01/2020, CMV ulcer Confirmed Active Fibromyalgia Confirmed Active Abnormal uterine bleeding Confirmed Active Hip pain Confirmed Active HSV Confirmed Active HIV disease Confirmed Active Hypertension Confirmed Active Iron deficiency anemia Confirmed Active *Catalina Diaz Psychiatric Clinical Nurse Specialist-[facility] [phone] Confirmed Active Mild recurrent major depression Confirmed Active Urinary incontinence Confirmed Active 1EGD 07/2010 - likely apthous ulcers with very morbid 2 weeks of weight loss and requiring IV fluids Social History Social History Type Response Smoking Status Never smoker; Tobacc o user in household: No entered on: 01/26/15 Sex Patient Care team information Care Team Personnel Name: Jaky Nicole RN Position: [facility] RN Member Role: Primary Care Nurse Name: Rhea Heard Position: S RN Member Role: Primary Care Nurse Name: Shala Shields MD Position: [facility] Primary Care Physician Member Role: PCP Address: Address: [address] [place] [address], [place] [address]- Name: Kassi Wang RN Position: [facility] RN Member Role: Primary Care Nurse Name: Isabell David RN Position: [facility] SN RN Member Role: Primary Care Nurse Care Team Related Persons Name: REYES OSHEA Address: home [address] [place] [id number] Name: SHANIKA ZAVALA Address: home [address] [place] [address]
--- OUTSIDE RECORDS SUMMARY | 2023-11-18 06:39 | XMS_ITS | Continuity of Care Document ---
Author Organization [facility] Address [address] [place] [address]- Care Team Providers Care Safety Officer Name Role Phone Timmy MERCER, Daphney Heard Primary Care Physician Encounter [facility] Date(s): 05/18/19 - 05/25/[address] [address]- [facility] Attending Physician: Daphney Warner NP Admitting Physician: Shala Shields MD Allergies, Adverse Reactions, Alerts Substance Reaction Severity Status azithromycin 1 Persistent Mild Active rifabutin Rash Persistent Moderate Active 1Rash Immunizations Given and Recorded Vaccine Date Status Refusal Reason influenza virus vaccine, inactivated 05/18/19 [facility] rded [...] GIVEN DATED: 11/18/11 8Admin Note: VIS GIVEN IRAQI 2011-04 9Admin Note: vis given vis date 12/26/2009 10Admin Note: Prevnar 11Admin Note: VIS GIVEN VIS DATE 03/26 Medications albuterol 90 mcg/inh inhalation powder 2 puffs, Inhalation, Every 6 hours, # 1 each, 1 Refills, Maintenance, 11/14/15 11:00:20, 2 puffs Inhalation Every 6 hours,x14 days Start Date: 11/14/15 Stop Date: 12/12/15 Status: Ordered Anusol-HC 25 mg suppository 1 supp = 25 mg, Rectally, 2 times a day, # 28 supp, 0 Refills, Maintenance, 04/21/19 16:43:33 EST, Suppository, 170, cm, 04/21/19 16:03:00 EST, Height Start Date: 04/21/19 Status: Ordered Bactrim DS 800 mg-160 mg oral tablet 1 tablet, By Mouth, Daily, for 30 days, # 30 tablet, 5 Refills, Acute 10/26/19 11:38:21 EDT, 04/29/19 11:38:21 EST, Tablet, Please fill today., 1 tablet By Mouth Daily,x30 days, 170, cm, 04/21/19 16:03:00 EST, Height Start Date: 04/29/19 Stop Date: 10/26/19 Status: Ordered darunavir 800 mg oral tablet 1 tablet = 800 mg, By Mouth, Daily, # 30 tablet, 2 Refills, Maintenance, 05/18/19 11:15:00 EST, Tablet, [facility] Please deliver, 170, cm, 04/21/19 16:03:00 EST, Height Start Date: 05/18/19 Stop Date: 08/16/19 Status: Ordered doxepin 25 mg oral capsule 3 capsule = 75 mg, By Mouth, Daily at bedtime, Please fill today, # 90 capsule, 5 Refills, Maintenance, 05/18/19 11:13:00 EST, Capsule, [facility] 170, cm, 04/21/19 16:03:00 EST, Height Start Date: 05/18/19 Stop Date: 11/14/19 Status: Ordered ferrous gluconate 324 mg (37.5 mg elemental iron) oral tablet 1 tablet = 324 mg, By Mouth, 2 times a day, # 60 tablet, 1 Refills, Maintenance, 05/20/19 13:38:00 EST, Tablet, [facility]/pharmacy #[id number], 170, cm, 04/21/19 16:03:00 EST, Height Start Date: 05/20/19 Stop Date: 07/19/19 Status: Ordered fluconazole 100 mg oral tablet See Instructions, 2 Tabs PO today then 1 tablet By Mouth Daily x 10 days, # 12 each, 0 Refills, Maintenance, 03/16/19 16:30:48 EDT, Tablet Start Date: 03/16/19 Status: Ordered Genvoya oral tablet 1 tablet, By Mouth, Daily, with food, # 30 tablet, 2 Refills, Maintenance, 05/18/19 11:15:00 EST, Tablet, [facility], Please deliver, 1 tablet By Mouth Daily,x30 days,Instr:with food,170, cm, 04/21/19 16:03:00 EST, Height Start Date: 05/18/19 Stop Date: 08/16/19 Status: Ordered lidocaine topical 2% solution 5 mL = 0.1 Gm, Swish and Swallow, 3 times a day before meals, PRN for pain, # 100 mL, 0 Refills, Maintenance, 11/17/18 12:11:33 EDT, Solution, 5 mL Swish and Swallow 3 times a day before meals,PRN:for pain Start Date: 11/17/18 Status: Ordered lisinopril 20 mg oral tablet 20 mg, 1, tablet, By Mouth, Daily, # 30 tablet, Refills 5, Tot. Refills 5, Maintenance, 05/18/19 11:13:00 EST, Route to Pharmacy Electronically, [facility], Please fill today, 170, cm, 04/21/19 16:03:00 EST, Height Start Date: 05/18/19 Stop Date: 11/14/19 Status: Ordered oxybutynin 10 mg/24 hr oral tablet, extended release 1 tablet = 10 mg, By Mouth, Daily, # 30 tablet, 5 Refills, Maintenance, 09/24/17 15:49:23 EDT, ER Tablet Start Date: 09/24/17 Stop Date: 03/23/18 Status: Ordered pantoprazole 40 mg oral delayed release tablet 1 tablet = 40 mg, By Mouth, Daily, Take 12 hours apart from Genvoya and Darunavir, # 30 tablet, 1 Refills, Maintenance, 03/16/19 6:58:00 EDT, Please fill today Start Date: 03/16/19 Stop Date: 05/15/19 Status: Ordered Provera 10 mg oral tablet 10 mg, 1, tablet, By Mouth, Daily, # 30 tablet, Refills 0, Tot. Refills 0, Maintenance, 04/21/19 16:44:15 EST, Route to Pharmacy Electronically, [id number], [facility], 170, cm, 04/21/19 16:03:00 EST, Height Start Date: 04/21/19 Status: Ordered Vitamin D 55388 iu oral capsule 50,000 International_Units, 1, capsule, By Mouth, Every week, # 5 capsule, Refills 2, Tot. Refills 2, Maintenance, 05/18/19 11:14:00 EST, Route to Pharmacy Electronically, [facility],170, cm, 04/21/19 16:03:00 EST, Height Start Date: 05/18/19 Stop Date: 08/16/19 Status: Ordered Vitamin D3 400 intl units oral capsule 2 capsule = 800 International_Units, By Mouth, Daily, # 60 capsule, 5 Refills, Maintenance, 09/24/17 15:52:40 EDT Start Date: 09/24/17 Stop Date: 03/23/18 Status: Ordered Problem List Condition Effective Dates Status Health Status Inform ant Anemia(Confirmed) Active Cervical dysplasia(Confirmed) Active Depression(Confirmed) Active Esophageal ulcer(Confirmed) 1 Active Abnormal uterine bleeding(Confirmed) Active HSV(Confirmed) Active Hypertension(Confirmed) Active Simple obesity(Confirmed) Active Urinary incontinence(Confirmed) Active 1EGD 07/2010 - likely apthous ulcers with very morbid 2 weeks of weight loss and requiring IV fluids Social History Social History Type Response Smoking Status Never smoker; Tobacc o user in household: No entered on: 01/26/15 Sex
--- OUTSIDE RECORDS SUMMARY | 2023-11-18 06:39 | XMS_ITS | Continuity of Care Document ---
Author Organization [facility] Address [address] [place] [address]- Care Team Providers Care Seam Steamer Name Role Phone Cornelius REDDY, Shala Kuo Primary Care Physician [facility] Date[facility]): 08/08/23 - 09/07/23 [facility] [address] [place], [place] [phone] Allergies, Adverse Reactions, Alerts Substance Reaction Severity [...] virus vaccine, inactivated 9 03/20/10 [facility] farhan tetanus-diphtheria toxoids (Td) 11/13/21 [...] GIVEN DATED: 11/18/11 8Admin Note: VIS GIVEN POLISH 2011-04 9Admin Note: vis given vis date 12/26/2009 10Admin Note: Prevnar 11Admin Note: VIS GIVEN VIS DATE 03/26 Medications acetaminophen 325 mg oral tablet 650 mg, 2, tablet, By Mouth, 3 times a day, PRN, # 540 tablet, Refills 3, Tot. Refills 3, Maintenance, as needed for fever, 02/20/23 13:39:00 EDT, Route to Pharmacy Electronically, [facility], Partial fill upon patient request if the prescri... Start Date: 02/20/23 Status: Ordered Bactrim 400 mg-80 mg oral tablet 1 tablet, By Mouth, Daily, BUBBLE PACK, # 90 tablet, 1 Refills, Maintenance, 02/20/23 13:37:00 EDT,Tablet, [facility], Partial fill upon patient request if the prescription is for a schedule II opioid drug., 1 tablet By Mouth Daily,Instr:BU... Start Date: 02/20/23 Stop Date: 05/21/23 Status: Ordered Blood Pressure Monitor See Instructions, # 1 Unknown, Maintenance, Check BP 3x Weekly and Document Dx: HTN (I10); Lisinopril 10mg 1x Daily Duration: Lifetime *Please Note Pt Does Not Posess Medical Knowledge To Use BP Cuff/Stethoscope, 12/26/20 15:31:00 EDT, Supply Start Date: 12/26/20 Status: Ordered calcium (as citrate)-vitamin D 250 mg-500 intl units oral tablet, chewable 2 tablet, Chew, 2 times a day with meals, # 70 tablet, 6 Refills, Maintenance, 09/04/23 11:14:00 EDT, Chew Tablet, [facility], Partial fill upon patient request if the prescription is for a schedule II opioid drug., 2 tablet Chew 2 ti... Start Date: 09/04/23 Status: Ordered Colace sodium 100 mg oral capsule 100 mg, 1, capsule, By Mouth, 2 times a day, PRN, # 60 capsule, Refills 11, Tot. Refills 11, Maintenance, for constipation, 02/20/23 13:39:00 EDT, Route to Pharmacy Electronically, [facility], Partial fill upon patient request if the prescri... Start Date: 02/20/23 Status: Ordered darunavir 800 mg oral tablet 1 tablet = 800 mg, By Mouth, Daily, with food, please get labs before refills; BUBBLE PACK, # 90 tablet, 1 Refills, Maintenance, 04/25/23 11:55:00 EST, Tablet, [facility], Partial fill upon patient request if the prescription is for a... Start Date: 04/25/23 Status: Ordered diclofenac 1% topical gel 1 application, Topically, 4 times a day, # 100 Gm, 11 Refills, Maintenance, 09/18/22 15:52:00 EDT, Gel, [facility], Partial fill upon patient request if the prescription is for a schedule II opioid drug., 167.6, cm, 07/04/22 16:00:00... Start Date: 09/18/22 Status: Ordered duloxetine 60 mg oral enteric coated capsule 1 capsule = 60 mg, By Mouth, Daily, start with duloxetine 30mg daily x 2 weeks then duloxetine 60mgdaily;, # 30 capsule, 4 Refills, Maintenance, 07/03/23 19:03:00 EST, EC Capsule, [facility], Partial fill upon patient request if the... Start Date: 07/03/23 Status: Ordered ferrous sulfate 325 mg oral enteric coated tablet 325 mg, 1, tablet, By Mouth, Daily, # 90 tablet, Refills 3, Tot. Refills 3, Maintenance, 08/26/23 9:38:00 EDT, Route to Pharmacy Electronically, [facility], Partial fill upon patientrequest if the prescription is for a schedule II op... Start Date: 08/26/23 Status: Ordered gabapentin 100 mg oral capsule 100 mg, 1, capsule, By Mouth, Daily at bedtime, PRN, # 30 capsule, Refills 4, Tot. Refills 4, Maintenance, Anxiety, 08/05/23 10:19:00 EDT, Route to Pharmacy Electronically, [facility], Partial fill upon patient request if the prescrip... Start Date: 08/05/23 Stop Date: 08/12/23 Status: Ordered Genvoya oral tablet 1 tablet, By Mouth, Daily, with food, please get labs before refills; BUBBLE PACK, # 90 tablet, 1 Refills, Maintenance, 04/25/23 11:55:00 EST, Tablet, [facility], Partial fill upon patient request if the prescription is for a schedule... Start Date: 04/25/23 Status: Ordered hydrochlorothiazide-olmesartan 25 mg-40 mg oral tablet 0.5 tablet, By Mouth, Daily, # 15 tablet, 4 Refills, Maintenance, 08/07/23 15:23:00 EDT, Tablet, [facility]/pharmacy #[id number], decrease dose, 0.5 tablet By Mouth Daily, 167.6, cm, 08/05/23 9:50:00 EDT, Height Start Date: 08/07/23 Status: Ordered Lidoderm 5% film 2 patch, Topically, Daily, remove patches after 12 hours; 2 patches to pain areas; can cut patches in half; do not excede 2 patches., # 60 patch, 4 Refills, Maintenance, 03/06/23 15:42:00 EDT, [facility]/pharmacy #[id number], Partial fill upon patient request if t... Start Date: 03/06/23 Stop Date: 08/03/23 Status: Ordered meloxicam 7.5 mg oral tablet 1 tablet = 7.5 mg, By Mouth, Daily, [place] with acetaminophen, # 14 tablet, 0 Refills, Maintenance, 08/25/23 16:16:00 EDT, Tablet, [facility], Partial fill upon patient request if theprescription is for a schedule II opioid drug., 167... Start Date: 08/25/23 Stop Date: 09/08/23 Status: Ordered Misc Rx Refills 0, Maintenance, Calcium/Mg/ Zinc 1 tablet daily, 01/23/21 17:47:00 EDT, Supply Start Date: 01/23/21 Status: Ordered naltrexone 50 mg oral tablet 1 tablet = 50 mg, By Mouth, Daily, # 30 tablet, 4 Refills, Maintenance, 07/28/23 16:46:00 EDT, Tablet, [facility]/pharmacy #[id number], Partial fill upon patient request if the prescription is for a schedule II opioid drug., 167.6, cm, 07/03/23 18:10:00 EST, Height Start Date: 07/28/23 Status: Ordered pantoprazole 40 mg oral delayed release tablet = 40 mg, By Mouth, 2 times a day, # 180 tablet, 3 Refills, Maintenance, 02/20/23 13:39:00 EDT, EC Tablet, please change q d script to BID, 167.6, cm, 12/23/22 8:35:00 EDT, Height Start Date: 02/20/23 Stop Date: 02/15/24 Status: Ordered polyethylene glycol 3350 oral powder for reconstitution = 17 Gm, By Mouth, Daily, dissolve in water before taking, # 510 Gm, 2 Refills, Maintenance, 07/03/23 18:52:00 EST, REC Powder, [facility], Partial fill upon patient request if the prescription is for a schedule II opioid drug., 17 Gm... Start Date: 07/03/23 Stop Date: 10/01/23 Status: Ordered Thera oral tablet 1 tablet, By Mouth, Daily, # 90 tablet, 3 Refills, Maintenance, 08/26/23 9:38:00 EDT, Tablet, [facility], Partial fill upon patient request if the prescription is for a schedule II opioid drug., 1 tablet By Mouth Daily, 167.6, cm, ... Start Date: 08/26/23 Status: Ordered Vitamin D3 1000 intl units oral capsule 1 capsule = 25 mcg, By Mouth, Daily, # 90 capsule, 3 Refills, Maintenance, 07/03/23 19:05:00 EST, Capsule, [facility], Partial fill upon patient request if the prescription is for a schedule II opioid drug., 167.6, cm, 07/03/23 18:10:... Start Date: 07/03/23 Status: Ordered Problem List Condition Confirmation Course Effective Dates Status H ealth Status Informant EtOH dependence Confirmed Active Cervical dysplasia Confirmed Active Fibromyalgia Confirmed Active HIV disease Confirmed Active Hypertension Confirmed Active Iron deficiency anemia Confirmed Active Lumbar radiculopathy - Lumbar MRI 07/2023, L5 nerve impingement Confirmed Active Osteoarthritis of right hip Confirmed Active Symphasis pubis OA, left Confirmed Active *Catalina Diaz Restoration Technician-[facility] [phone] Confirmed Active Mild recurrent major depression Confirmed Active Rosacea Confirmed Active Urinary incontinence Confirmed Active Vital Signs Most recent to oldest [Reference Range]: 1 2 Blood Pressure [90-138/55-84 mm Hg] 135/ 89mm Hg (08/08/23 11:43 AM) 144/99mm Hg *H* (08/07/23 6:00 PM) Social History Social History Type Response Tobacco Use: Rolls weed in l eaf tabacco . Sex Patient Care team information Care Team Personnel Name: Jaky Nicole RN Position: [facility] RN Member Role: Primary Care Nurse Name: Rhea Brooks Position: [facility] RN Member Role: Primary Care Nurse Name: Shala Shields MD Position: [facility] Physician - Primary Care Member Role: PCP Address: Address: [address] [place] [address] Adult Medicine [place], [place] [address] Name: Kassi Wang RN Position: [facility] RN Member Role: Primary Care Nurse Name: Isabell David RN Position: [facility] ERNESTO Office Staff Member Role: Primary Care Nurse Care Team Related Persons Name: REYES OSHEA Address: home [address] [address] Name: SHANIKA ZAVALA Address: home [address] [place] [address]
--- OUTSIDE RECORDS SUMMARY | 2023-11-18 06:39 | XMS_ITS | Continuity of Care Document ---
Author Organization [facility] Address [address] [place] [address]- Care Team Providers Care Sand Temperer Name Role Phone Timmy MERCER, Daphney Heard Primary Care Physician [facility] Date(s): 03/16/19 - 04/29/19 [facility] [address] [place] [address]- [facility] Attending Physician: Not on Staff, Attending MD Allergies, Adverse Reactions, Alerts Substance Reaction Severity Status azithromycin 1 Persistent Mild Active rifabutin Rash Persistent Moderate Active 1Rash Immunizations Given and Recorded Vaccine Date Status Refusal Reason influenza virus vaccine, inactivated 1 03/25/18 Gi [...] GIVEN DATED: 11/18/11 8Admin Note: VIS GIVEN [place] 2011-04 9Admin Note: vis given vis date [...] Daily, # 30 tablet, 2 Refills, Maintenance, 07/08/18 13:31:55 EST, Tablet, Please deliver Start Date: 07/08/18 Stop Date: 10/06/18 Status: Ordered doxepin 25 mg oral capsule 3 capsule = 75 mg, By Mouth, Daily at bedtime, Please fill today, # 90 capsule, 5 Refills, Maintenance, 12/01/18 6:10:47 EDT, Capsule Start Date: 12/01/18 Stop Date: 05/30/19 Status: Ordered fluconazole 100 mg oral tablet See Instructions, 2 Tabs PO today then 1 tablet By Mouth Daily x 10 days, # 12 each, 0 Refills, Maintenance, 03/16/19 16:30:48 EDT, Tablet Start Date: 03/16/19 Status: Ordered Genvoya oral tablet 1 tablet, By Mouth, Daily, with food, # 30 tablet, 2 Refills, Maintenance, 07/08/18 13:32:44 EST, Tablet, Please deliver, 1 tablet By Mouth Daily,x30 days,Instr:with food Start Date: 07/08/18 Stop Date: 10/06/18 Status: Ordered lidocaine topical 2% solution 5 [...] tablet, Refills 5, Tot. Refills 5, Maintenance, 12/09/18 13:47:51 EDT, Route to Pharmacy Electronically, [id number], [facility], Please fill today Start Date: 12/09/18 Stop Date: 06/07/19 Status: Ordered oxybutynin 10 mg/24 hr oral [...] 04/21/19 16:44:15 EST, Route to Pharmacy Electronically, [id number], [facility], 170, cm, 04/21/19 16:03:00 EST, Height Start Date: 04/21/19 Status: Ordered sertraline 50 mg oral tablet 1 tablet = 50 mg, By Mouth, Daily, Start with 1/2 Tab PO aat HS, # 30 tablet, 0 Refills, Maintenance, 12/09/18 14:18:42 EDT, Tablet Start Date: 12/09/18 Stop Date: 01/08/19 Status: Ordered Vitamin D3 400 intl units [...]
--- OUTSIDE RECORDS SUMMARY | 2023-11-18 06:39 | XMS_ITS | Continuity of Care Document ---
Author Organization [facility] Address [address] [place] [address]- Care Team Providers Care Cover Inspector Name Role Phone Cornelius REDDY, Shala Kuo Primary Care Physician [phone] Encounter [facility] Date(s): 03/12/21 - 04/26/21 [facility] [address] [place], [place] [address] Attending Physician: Not on Staff, Attending MD Allergies, Adverse Reactions, Alerts Substance Reaction Severity Status azithromycin 1 Persistent Mild Active rifabutin Rash Persistent Moderate Active amLODIPine 2 Active 1Rash 2Had Lower extremity ankle swelling with 10mg. Immunizations Given and Recorded Vaccine Date Status Refusal Reason influenza virus vaccine, inactivated 03/08/21 Give n [...] Given pneumococcal 13-valent vaccine 10 05/21/17 Given pneumococcal 23-valent vaccine 04/27/13 Given tetanus/diphtheria/pertussis, acel(Tdap) 11 03/20/10 Given 1Admin Note: Influenza vaccine 2Admin Note: Influenza vaccine 3Admin Note: Influenza vaccine 4Admin Note: Influenza vaccine 5Admin Note: Influenza vaccine 6Admin Note: vis given 12/11/2012 7Admin Note: VIS GIVEN DATED: 11/18/11 8Admin Note: VIS GIVEN DIVEHI 2011-04 9Admin Note: vis given vis date 12/26/2009 10Admin Note: Prevnar 11Admin Note: VIS GIVEN VIS DATE 03/26 Medications Bactrim DS 800 mg-160 mg oral tablet 1 tablet, By Mouth, Daily, # 30 tablet, 5 Refills, Maintenance, 01/25/21 10:04:00 EDT, Tablet, [facility], Partial fill upon patient request [...] mL, 11 Refills, Maintenance, 02/02/21 17:36:00 EDT, [facility], replaced tablets by suspension, 167.6, cm, 02/02/21 13:00:00 EDT, Height, 69.3, kg, 02/02/21 13:00... Start Date: 02/02/21 Stop Date: 01/04/22 Status: Ordered Colace sodium 100 mg oral capsule 100 mg, 1, capsule, By Mouth, 2 times a day, PRN, # 60 capsule, Refills 11, Tot. Refills 11, Maintenance, for constipation, 02/08/21 20:01:00 EDT, Route to Pharmacy Electronically, [facility]/pharmacy #[id number], Partial fill upon patient request if the prescript... Start Date: 02/08/21 Status: Ordered darunavir 800 mg oral tablet 1 tablet = 800 mg, By Mouth, Daily, # 30 tablet, 5 Refills, Maintenance, 01/25/21 10:06:00 EDT, Tablet, [facility], Partial fill upon patient request if the prescription is for a schedule II opioid drug., 167.6, cm, 01/23/21 18:14:00... Start Date: 01/25/21 Status: Ordered ferrous sulfate 325 mg oral enteric coated tablet 325 mg, 1, tablet, By Mouth, Daily, # 30 tablet, Refills 11, Tot. Refills 11, Maintenance, 03/02/2112:59:00 EDT, Route to Pharmacy Electronically, [facility], Partial fill upon patient request if the prescription is for a schedule II... Start Date: 03/02/21 Status: Ordered Genvoya oral tablet 1 tablet, By Mouth, Daily, with food, # 30 tablet, 5 Refills, Maintenance, 01/25/21 9:51:00 EDT, Tablet, [facility], Partial fill upon patient request if the prescription is for a schedule II opioid drug., 1 tablet By Mouth Daily,Inst... Start Date: 01/25/21 Status: Ordered lisinopril 40 mg oral tablet 1 tablet = 40 mg, By Mouth, Daily, # 30 tablet, 11 Refills, Maintenance, 03/08/21 8:46:00 EDT, Tablet, [facility], Dose increased, 167.6, cm, 02/19/21 16:01:00 EDT, Height, 69.3, kg,02/02/21 13:00:00 EDT, Dry Weight Start Date: 03/08/21 Status: Ordered MiraLax oral powder for reconstitution = 17 Gm, By Mouth, Daily, PRN Constipation, dissolve in water before taking, # 527 Gm, 11 Refills, Maintenance, 02/08/21 20:01:00 EDT, REC Powder, [facility]/pharmacy #[id number], Partial fill upon patient request if the prescription is for a schedule II opioid dr... Start Date: 02/08/21 Status: Ordered mirtazapine 15 mg oral tablet 1 tablet = 15 mg, By Mouth, Daily at bedtime, # 30 tablet, 4 Refills, Maintenance, 02/19/21 16:53:00 EDT, Tablet, [facility], increase dose, 167.6, cm, 02/19/21 16:01:00 EDT, Height,69.3, kg, 02/02/21 13:00:00 EDT, Dry Weight Start Date: 02/19/21 Stop Date: 07/19/21 Status: Ordered [facility] Refills 0, Maintenance, Calcium/Mg/ Zinc 1 tablet daily, 01/23/21 17:47:00 EDT, Supply Start Date: 01/23/21 Status: Ordered Multivitamin 1 tablet, By Mouth, Daily, 0 Refills, Maintenance, 01/23/21 17:48:00 EDT, Partial fill upon patientrequest if the prescription is for a schedule II opioid drug. Start Date: 01/23/21 Status: Ordered oxyCODONE 5 mg oral tablet 5 mg, 1, tablet, By Mouth, Every 6 hours, PRN, # 5 tablet, Refills 0, Tot. Refills 0, Maintenance, as needed for pain, 02/02/21 14:41:00 EDT, Route to Pharmacy Electronically, [facility]/pharmacy #[id number], 167.6, cm, 02/02/21 13:00:00 EDT, Height, 69.3, kg, ... Start Date: 02/02/21 Status: Ordered pantoprazole 40 mg oral delayed [...] 10:56:00 EDT, 12/19/20 10:56:00 EDT, REC Powder, [facility]/pharmacy #[id number], Partial fill upon patient request... Start Date: 12/19/20 Stop Date: 12/16/21 Status: Ordered Thera oral tablet 1 tablet, By Mouth, Daily, # 30 tablet, 11 Refills, Maintenance, 03/09/21 16:13:00 EDT, Tablet, [facility], Partial fill upon patient request if the prescription is for a schedule IIopioid drug., 1 tablet By Mouth Daily, 167.6, cm, 1... Start Date: 03/09/21 Status: Ordered Tylenol 325 mg oral tablet 650 mg, 2, tablet, By Mouth, Every 4 hours, PRN, # 24 tablet, Refills 1, Tot. Refills 1, Maintenance, for fever, 02/02/21 14:41:00 EDT, Route to Pharmacy Electronically, [facility]/pharmacy #[id number], Partial fill upon patient request if the [...]
--- OUTSIDE RECORDS SUMMARY | 2023-11-18 06:39 | XMS_ITS | Continuity of Care Document ---
Author Organization [facility] Address [address] [place] [address]- Care Team Providers Care Skirt Panel Assembler Name Role Phone Timmy MERCER, Daphney Heard Primary Care Physician [facility] Date(s): 04/21/19 - 07/01/19 [facility] [address] [place] [address]- Attending Physician: Shala Shields MD Admitting Physician: Shala Shields MD Allergies, Adverse [...] GIVEN DATED: 11/18/11 8Admin Note: VIS GIVEN MACANESE 2011-04 9Admin Note: vis given vis date [...] 2 Refills, Maintenance, 05/18/19 11:15:00 EST, Tablet, [facility] Please deliver, 170, cm, 04/21/19 16:03:00 EST, Height Start Date: 05/18/19 Stop Date: 08/16/19 Status: Ordered doxepin 25 mg oral capsule 3 capsule = 75 mg, By Mouth, Daily at bedtime, Please fill today, # 90 capsule, 5 Refills, Maintenance, 05/18/19 11:13:00 EST, Capsule, [facility] 170, cm, 04/21/19 16:03:00 EST, Height Start Date: 05/18/19 Stop Date: 11/14/19 Status: Ordered ferrous gluconate 324 mg (37.5 mg elemental iron) oral tablet 1 tablet = 324 mg, By Mouth, 2 times a day, # 60 tablet, 1 Refills, Maintenance, 05/20/19 13:38:00 EST, Tablet, [facility]/pharmacy #[id number], 170, cm, 04/21/19 16:03:00 EST, Height Start Date: 05/20/19 Stop Date: 07/19/19 Status: Ordered fluconazole 100 mg oral tablet See Instructions, 2 Tabs PO today then 1 tablet By Mouth Daily x 10 days, # 12 each, 0 Refills, Maintenance, 03/16/19 16:30:48 EDT, Tablet Start Date: 03/16/19 Status: Ordered fluconazole 200 mg oral tablet 1 tablet = 200 mg, By Mouth, Daily, for 14 days, # 14 tablet, 0 Refills, Acute 07/06/19 15:24:00 EST, 06/22/19 15:24:00 EST, Tablet, [facility]/pharmacy #[id number], 170, cm, 04/21/19 16:03:00 EST, Height Start Date: 06/22/19 Stop Date: 07/06/19 Status: Ordered Genvoya oral tablet 1 tablet, By Mouth, Daily, with food, # 30 tablet, 2 Refills, Maintenance, 05/18/19 11:15:00 EST, Tablet, [facility], Please deliver, 1 tablet By Mouth Daily,x30 [...] 05/18/19 11:13:00 EST, Route to Pharmacy Electronically, [facility], Please fill today, 170, cm, 04/21/19 16:03:00 [...] 04/21/19 16:44:15 EST, Route to Pharmacy Electronically, [id number], [facility], 170, cm, 04/21/19 16:03:00 EST, Height Start Date: 04/21/19 Status: Ordered Vitamin D 06884 iu oral capsule 50,000 International_Units, 1, capsule, By Mouth, Every week, # 5 capsule, Refills 2, Tot. Refills 2, Maintenance, 05/18/19 11:14:00 EST, Route to Pharmacy Electronically, [facility],170, cm, 04/21/19 16:03:00 EST, Height Start Date: [...]
--- OUTSIDE RECORDS SUMMARY | 2023-11-18 06:39 | XMS_ITS | Continuity of Care Document ---
Author Organization [facility] Address [address] [place] [address]- Care Team Providers Care Design Engineer Products Name Role Phone Cornelius REDDY, Shala Kuo Primary Care Physician Encounter [facility] Date(s): 04/03/23 - 05/03/23 [facility] [address] [place] [id number] Attending Physician: AdmJairo he Admitting Physician: Admtr, Jairo Referring Physician: Admtr, [id number] Allergies, Adverse Reactions, Alerts Substance Reaction Severity Status azithromycin 1 Persistent Mild Active rifabutin Rash Persistent Moderate Active amLODIPine 2 Active 1Rash 2Had Lower extremity ankle swelling with 10mg. Immunizations Given and Recorded Vaccine Date Status Refusal Reason SARS-CoV-2 (COVID-19) [id number] vaccine 04/04/22 G iven influenza virus vaccine, [...] GIVEN DATED: 11/18/11 8Admin Note: VIS GIVEN ARABIC 2011-04 9Admin Note: vis given vis date 12/26/2009 10Admin Note: Prevnar 11Admin Note: VIS GIVEN VIS DATE 03/26 Medications acetaminophen 325 mg oral tablet 650 mg, 2, tablet, By Mouth, 3 times a day, PRN, # 540 tablet, Refills 3, Tot. Refills 3, Maintenance, as needed for fever, 02/20/23 13:39:00 EDT, Route to Pharmacy Electronically, [facility], Partial fill upon patient request if the prescri... Start Date: 02/20/23 Status: Ordered Bactrim 400 mg-80 mg oral tablet 1 tablet, By Mouth, Daily, BUBBLE PACK, # 90 tablet, 1 Refills, Maintenance, 02/20/23 13:37:00 EDT,Tablet, [facility], Partial fill upon patient request if the prescription is for a schedule II opioid drug., 1 tablet By Mouth Daily,Instr:BU... Start Date: 02/20/23 Stop Date: 05/21/23 Status: Ordered Blood Pressure Monitor Blood Pressure [...] bedtime, # 1,120 mL, 11 Refills, Maintenance, 09/18/22 15:52:00 EDT, [facility], replaced tablets by suspension, 167.6, cm, 07/04/22 16:00:00 EST, Height, 69.3, kg, 02/02/21 13:00... Start Date: 09/18/22 Stop Date: 08/20/23 Status: Ordered Colace sodium 100 mg oral capsule 100 mg, 1, capsule, By Mouth, 2 times a day, PRN, # 60 capsule, Refills 11, Tot. Refills 11, Maintenance, for constipation, 02/20/23 13:39:00 EDT, Route to Pharmacy Electronically, [facility], Partial fill upon patient request if the prescri... Start Date: 02/20/23 Status: Ordered darunavir 800 mg oral tablet 1 tablet = 800 mg, By Mouth, Daily, with food, please get labs before refills; BUBBLE PACK, # 90 tablet, 1 Refills, Maintenance, 04/25/23 11:55:00 EST, Tablet, [facility], Partial fill upon patient request if the prescription is for a... Start Date: 04/25/23 Status: Ordered diclofenac 1% topical gel 1 application, Topically, 4 times a day, # 100 Gm, 11 Refills, Maintenance, 09/18/22 15:52:00 EDT, Gel, [facility], Partial fill upon patient request if the prescription is for a schedule II opioid drug., 167.6, cm, 07/04/22 16:00:00... Start Date: 09/18/22 Status: Ordered duloxetine 30 mg oral enteric coated capsule 1 capsule = 30 mg, By Mouth, Daily, start with duloxetine 30mg daily x 2 weeks then duloxetine 60mgdaily; BUBBLE PACK, # 14 capsule, 0 Refills, Maintenance, 02/20/23 13:46:00 EDT, [facility], Partial fill upon patient request if the prescri... Start Date: 02/20/23 Stop Date: 03/06/23 Status: Ordered duloxetine 60 mg oral enteric coated capsule 1 capsule = 60 mg, By Mouth, Daily, start with duloxetine 30mg daily x 2 weeks then duloxetine 60mgdaily; BUBBLE PACK, # 30 capsule, 4 Refills, Maintenance, 02/20/23 13:46:00 EDT, EC Capsule, [facility], Partial fill upon patient request if... Start Date: 02/20/23 Status: Ordered ferrous sulfate 325 mg oral enteric coated tablet 325 mg, 1, tablet, By Mouth, Every other day, BUBBLE PACK, # 45 tablet, Refills 3, Tot. Refills 3, Maintenance, 02/20/23 13:37:00 EDT, Route to Pharmacy Electronically, [facility], Partial fill upon patient request if the prescription is for... Start Date: 02/20/23 Status: Ordered Genvoya oral tablet 1 tablet, By Mouth, Daily, with food, please get labs before refills; BUBBLE PACK, # 90 tablet, 1 Refills, Maintenance, 04/25/23 11:55:00 EST, Tablet, [facility], Partial fill upon patient request if the prescription is for a schedule... Start Date: 04/25/23 Status: Ordered hydrochlorothiazide-olmesartan 25 mg-40 mg oral tablet 1 tablet, By Mouth, Daily, BUBBLE PACK, # 90 tablet, 3 Refills, Maintenance, 02/20/23 13:37:00 EDT,Tablet, [facility], d/c HCTZ/lisinopril, 1 tablet By Mouth Daily,Instr:BUBBLE PACK, 167.6, cm, 12/23/22 8:35:00 EDT, Height Start Date: 02/20/23 Status: Ordered Lidoderm 5% film 2 patch, Topically, Daily, remove patches after 12 hours; 2 patches to pain areas; can cut patches in half; do not excede 2 patches., # 60 patch, 4 Refills, Maintenance, 03/06/23 15:42:00 EDT, [facility]/pharmacy #[id number], Partial fill upon patient request if t... Start Date: 03/06/23 Stop Date: 08/03/23 Status: Ordered MetroGel 1% topical gel 1 application, Topically, Daily, PRN facial rash, # 60 Gm, 11 Refills, Maintenance, 12/23/22 8:40:00 EDT, Gel, [facility], Partial fill upon patient request if the prescription is for a schedule II opioid drug., 1 application Topicall... Start Date: 12/23/22 Status: Ordered MiraLax oral powder for reconstitution = 17 Gm, By Mouth, Daily, PRN Constipation, dissolve in water before taking, # 527 Gm, 11 Refills, Maintenance, 02/20/23 13:39:00 EDT, REC Powder, [facility], Partial fill upon patient request if the prescription is for a schedule II opioid... Start Date: 02/20/23 Status: Ordered [facility] Rx Refills 0, Maintenance, Calcium/Mg/ Zinc 1 [...] Date: 02/20/23 Stop Date: 02/15/24 Status: Ordered Shingrix intramuscular injection = 0.5 mL, Intramuscular, Once, repeat dose in 2 to 6 months, # 2 each, 0 Refills, Soft Stop, 12/23/22 8:46:00 EDT, Powder, [facility], Partial fill upon patient request if the prescription is for a schedule II opioid drug., 0.5 mL Int... Start Date: 12/23/22 Status: Ordered Thera oral tablet 1 tablet, By Mouth, Daily, BUBBLE PACK, # 90 tablet, 3 Refills, Maintenance, 02/20/23 13:37:00 EDT,Tablet, [facility], Partial fill upon patient request if the prescription is for a schedule II opioid drug., 1 tablet By Mouth Daily,Instr:BU... Start Date: 02/20/23 Status: Ordered tiZANidine 4 mg oral capsule 1 capsule = 4 mg, By Mouth, 3 times a day, # 21 capsule, 0 Refills, Maintenance, 03/06/23 15:41:00 EDT, Capsule, [id number], Partial fill upon patient request if the prescription is for a schedule II opioid drug., 167.6, cm, 03/06/23 11:09:00... 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, CMV ulcer Confirmed Active Fibromyalgia Confirmed Active Abnormal uterine bleeding Confirmed Active Right hip pain Confirmed Active HSV Confirmed Active HIV disease Confirmed Active Hypertension Confirmed Active Iron deficiency anemia Confirmed Active Symphasis pubis OA, left Confirmed Active *Catalina Diaz Agricultural Research Director-[facility] [phone] Confirmed Active Mild recurrent major depression Confirmed Active Rosacea Confirmed Active Urinary incontinence Confirmed Active 1EGD 07/2010 - likely apthous ulcers with very morbid 2 weeks of weight loss and requiring IV fluids Social History Social History Type Response Smoking Status Never smoker; Tobacc o user in household: No entered on: 01/26/15 Sex Laboratory * Event Display: Non Lab Results Authored Date: * Event Display: Non Lab Results Authored Date: Note * Francesca Silvestre: PERFORM, SIGN, VERIFY Event Display: Patient Education/Instruction Authored Date: [id number] [facility] Clinical Summary Person Information Name JASON ZAVALA Age 31 Years 1980 12:00 AM PCP Cornelius REDDY, Shala Kuo PCP Reason for Visit: Allergy Info: NKA Vital Signs Height Weight BMI Blood Pressure / Temperature Pulse Rate Respiratory Rate 02 Sat Mode of Delivery / Medication Information Acyclovir (acyclovir 400 mg oral tablet) 1 tablet, Oral, twice a day, 30 days, Refills: 11 Docusate (docusate sodium 100 mg oral capsule) 1 capsule, Oral, twice a day, 30 days, Refills: 11 Efavirenz/Emtricitabine/Tenofovir (Atripla oral tablet) 1 tablet, Oral, Daily, Refills: 11 Fluoxetine (fluoxetine 20 mg oral capsule) 1 capsule, Oral, Daily, Refills: 11 Fluticasone Nasal (Flonase 0.05 mg/inh nasal spray) 1 sprays, Nares, Both, twice a day, Refills: 1 Hydrochlorothiazide (hydrochlorothiazide 25 mg oral tablet) 1 tablet, Oral, Daily, Refills: 11 Lidocaine Topical (Lidocaine Viscous 2% solution) , See Instructions, 15 mL By Mouth Swish and Swallow Every 3 hours 7 days. Please disregard prev order for 5 ml of Lidocaine every 3 hours., Refills:1 Lidocaine Topical (Lidocaine Viscous 2% solution) 5 mL, Topically, 3 times a day with meals, As Needed, for mouth sore pain, Refills: 0 Lisinopril (lisinopril 5 mg oral tablet) 1 tablet, Oral, Daily, Refills: 1 Multivitamin (multivitamin Multiple Vitamins oral capsule) 1 capsule, Oral, Daily, Refills: 11 PredniSONE (prednisone 20 mg oral tablet) 2 tablet, Oral, Daily, 7 days, Refills: 0 Sulfamethoxazole/Trimethoprim (Bactrim DS 800 mg-160 mg oral tablet) 1 tablet, Oral, Daily, 30 days, Refills: 5 Problem List Date Problem 10/24/05 Cervical dysplasia 03/24/07 Depression 06/02/07 Simple obesity 08/21/10 Esophageal ulcer 08/21/10 HSV If the following labs have been performed in the last year, the most recent result is displayed below. Diagnostic Results Lab Result Value Date Lead Hemoglobin A1C LDL HDL Triglycerides Total Cholesterol Disclaimer: The information provided is of a general nature and is intended to be used in conjunction with the recommendations and advice of your health care practitioner. Every effort has been made to ensure that the information provided is accurate and complete at the time it is provided to you however, as your needs change, or, as new information becomes available, different or additional instructions may be required. If you have questions, please consult with your primary care provider or pharmacist, as appropriate. This information is not intended to serve as substitution for assessment and evaluation by a qualified health care provider. If you do not have a primary care provider, you may find a [facility] provider by calling [facility] [employer] [facility] at [phone]. Patient Education Information Follow-up Details: Patient Education Material: Patient Care team information Care Team Personnel Name: Jaky Nicole RN Position: S RN Member Role: Primary Care Nurse Name: Rhea Heard Position: S RN Member Role: Primary Care Nurse Name: Shala Shields MD Position: S Physician - Primary Care Member Role: PCP Address: Address: [address] [place] [id number] Name: Kassi Wang RN Position: S RN Member Role: Primary Care Nurse Name: Isabell David RN Position: [facility] SN RN Member Role: Primary Care Nurse Care Team Related Persons Name: REYES OSHEA Address: home [address] [address] Name: SHANIKA ZAVALA Address: home [address] [place] [address]
--- OUTSIDE RECORDS SUMMARY | 2023-11-18 06:39 | XMS_ITS | Continuity of Care Document ---
Author Organization [facility] ter Address [address] [place] [address]- Care Team Providers Care Aircraft Delivery Checker Name Role Phone Sahla Shields MD Primary Care Physician [phone] [place] [facility] [place] 02/02/21 - 02/02/[address] [address]- Discharge Disposition: A-D/C Home Attending Physician: Carolyne Ball MD Admitting Physician: Carolyne Blal MD Referring Physician: Carolyne Ball MD Allergies, Adverse Reactions, Alerts Substance Reaction [...] GIVEN DATED: 11/18/11 8Admin Note: VIS GIVEN UZBEK 2011-04 9Admin Note: vis given vis date 12/26/2009 10Admin Note: Prevnar 11Admin Note: VIS GIVEN VIS DATE 03/26 Medications Bactrim DS 800 mg-160 mg oral tablet 1 tablet, By Mouth, Daily, # 30 tablet, 5 Refills, Maintenance, 01/25/21 10:04:00 EDT, Tablet, [facility], Partial fill upon patient request if the prescription is for a schedule II opioid drug., 1 tablet By Mouth Daily, 167.6, cm, 09... Start Date: 01/25/21 Status: Ordered Bactrim DS 800 mg-160 mg oral tablet 1 tablet, By Mouth, Every 24 hours, # 30 tablet, 5 Refills, Maintenance, 01/11/21 10:10:00 EDT, Tablet, [facility], Partial fill upon patient request if the prescription is for a schedule II opioid drug., 1 tablet By Mouth Every 24 ho... Start Date: 01/11/21 Status: Ordered Blood Pressure Monitor See Instructions, [...] mL, 11 Refills, Maintenance, 02/02/21 17:36:00 EDT, [facility], replaced tablets by suspension, 167.6, cm, 02/02/21 13:00:00 EDT, Height, 69.3, kg, 02/02/21 13:00... Start Date: 02/02/21 Stop Date: 01/04/22 Status: Ordered Carafate 1 gm/10 ml oral suspension 10 mL = 1 Gm, By Mouth, 3 times a day before meals and bedtime, for 28 days, # 1,120 mL, 1 Refills,Hard Stop 02/13/21 23:29:00 EDT, 12/19/20 23:29:00 EDT, [facility]/pharmacy #[id number], replaced tablets by suspension, 166, cm, 12/19/20 9:44:00 EDT, Height, 66.9... Start Date: 12/19/20 Stop Date: 02/13/21 Status: Ordered darunavir 800 mg oral tablet 1 tablet = 800 mg, By Mouth, Daily, # 30 tablet, 5 Refills, Maintenance, 01/25/21 10:06:00 EDT, Tablet, [facility], Partial fill upon patient request if the prescription is for a schedule II opioid drug., 167.6, cm, 01/23/21 18:14:00... Start Date: 01/25/21 Status: Ordered ferrous sulfate 325 mg oral enteric coated tablet 325 mg, 1, tablet, By Mouth, Daily, # 30 tablet, Refills 1, Tot. Refills 1, Maintenance, 01/06/21 18:35:00 EDT, Route to Pharmacy Electronically, [facility], Partial fill upon patient request if the prescription is for a schedule II o... Start Date: 01/06/21 Status: Ordered Genvoya oral tablet 1 tablet, By Mouth, Daily, with food, # 30 tablet, 5 Refills, Maintenance, 01/25/21 9:51:00 EDT, Tablet, [facility], Partial fill upon patient request if the prescription is for a schedule II opioid drug., 1 tablet By Mouth Daily,Inst... Start Date: 01/25/21 Status: Ordered Genvoya oral tablet 1 tablet, By Mouth, 2 times a day, with food, # 30 tablet, 0 Refills, Maintenance, 01/11/21 10:09:00 EDT, Tablet, [facility], Partial fill upon patient request if the prescription isfor a schedule II opioid drug., 166, cm, 01/11/21 9... Start Date: 01/11/21 Status: Ordered lisinopril 10 mg oral tablet 10 mg, 1, tablet, By Mouth, Daily, # 30 tablet, Refills 1, Tot. Refills 1, Maintenance, 01/06/21 18:35:00 EDT, Route to Pharmacy Electronically, [facility], Partial fill upon patientrequest if the prescription is for a schedule II op... Start Date: 01/06/21 Stop Date: 02/05/21 Status: Ordered mirtazapine 15 mg oral tablet 0.5 tablet = 7.5 mg, By Mouth, Daily at bedtime, # 15 tablet, 4 Refills, Maintenance, 01/08/21 11:59:00 EDT, Tablet, [facility], Partial fill upon patient request if the prescriptionis for a schedule II opioid drug., 166, cm, ... Start Date: 01/08/21 Stop Date: 06/07/21 Status: Ordered [facility] Rx Refills 0, Maintenance, Calcium/Mg/ Zinc 1 [...] 02/02/21 14:41:00 EDT, Route to Pharmacy Electronically, [facility]/pharmacy #[id number], 167.6, cm, 02/02/21 13:00:00 EDT, Height, 69.3, kg, ... Start Date: 02/02/21 Status: Ordered OxyCODONE IR Tablet 10 mg, Tablet, By Mouth, Every 4 hours, in PACU ONLY, if patient can tolerate PO, PRN for Pain , Moderate, Routine, 02/02/21 14:08:00 EDT Start Date: 02/02/21 Stop Date: 02/03/21 Status: Discontinued pantoprazole 40 mg oral delayed release tablet = 40 mg, By Mouth, 2 times a day, # 60 tablet, 11 Refills, Maintenance, 02/02/21 17:36:00 EDT, EC Tablet, please change q d script to BID, 167.6, cm, 02/02/21 13:00:00 EDT, Height, 69.3, kg, 02/02/2113:00:00 EDT, Dry Weight Start Date: 02/02/21 Stop Date: 01/28/22 Status: Ordered pantoprazole 40 mg oral delayed release tablet = 40 mg, By Mouth, 2 times a day, for 30 days, # 60 tablet, 1 Refills, Hard Stop 02/17/21 23:28:00 EDT, 12/19/20 23:28:00 EDT, EC Tablet, please change [...] 10:56:00 EDT, 12/19/20 10:56:00 EDT, REC Powder, [facility]/pharmacy #[id number], Partial fill upon patient request... Start Date: 12/19/20 Stop Date: 12/16/21 Status: Ordered Tylenol 325 mg oral tablet 650 mg, 2, tablet, By Mouth, Every 4 hours, PRN, # 24 tablet, Refills 1, Tot. Refills 1, Maintenance, for fever, 02/02/21 14:41:00 EDT, Route to Pharmacy Electronically, [facility]/pharmacy #[id number], Partial fill upon patient request if [...] of weight loss and requiring IV fluids Vital Signs Most recent to oldest [Reference Range]: 1 2 3 Height 167.6 cm (02/02/21 1:00 PM) 167.6 cm (01/23/21 6:14 PM) Weight 70.4 kg (02/02/21 1:00 PM) 70.4 kg (01/23/21 6:14 PM) Oxygen Saturation [94-100 %] 100 % (02/02/21 2:45 PM) 98 % (02/02/21 2:30 PM) 100 % (02/02/21 1:00 PM) Pulse Rate [55-90 bpm] 78 bpm (02/02/21 1:00 PM) Body Mass Index [18.5-24.99] 25.06 *H* (02/02/21 1:00 PM) 25.06 *H* (01/23/21 6:14 PM) Blood Pressure [90-138/55-84 mm Hg] 149/95mm Hg *H* (02/02/21 2:45 PM) 145/95mm Hg *H* (02/02/21 2:30 PM) 127/91mm Hg (02/02/21 1:00 PM) Respiratory Rate [16-30 br/min] 16 br/min (02/02/21 3:10 PM) 17 br/min (02/02/21 2:45 PM) 13 br/min *L* (02/02/21 2:30 PM) Temperature [96.8-100.4 DegF] 97.3 DegF (02/02/21 2:30 PM) 98.4 DegF (02/02/21 1:00 PM) Mode of Delivery (Oxygen) Room air (02/02/21 2:45 PM) Room air (02/02/21 2:30 PM) Room air (02/02/21 1:00 PM) Blood pressure sites Arm, left (02/02/21 2:30 PM) Arm, left (02/02/21 1:00 PM) Temperature Route Temporal (02/02/21 2:30 PM) Temporal (02/02/21 1:00 PM) Dry Weight 69.3 kg (02/02/21 1:00 PM) 70.4 kg (01/23/21 6:14 PM) Weight Obtained Via Patient/family state d (01/23/21 6:14 PM) Dry Weight Obtained Via Standing scale (02/02/21 1:00 PM) Patient/family stated (01/23/21 6:14 PM) Social History Social History Type Response Smoking Status Never smoker; Tobacc o user in household: No entered on: 01/26/15 Sex
--- OUTSIDE RECORDS SUMMARY | 2023-11-18 06:39 | XMS_ITS | Continuity of Care Document ---
Author Organization [facility] Address [address] [place] [address]- Care Team Providers Care Tire Room Supervisor Name Role Phone Shala Shields MD Primary Care Physician [facility] Date[facility] 10/29/21 - 12/26/21 [facility] [address] [place] [id number] Attending Physician: Shala Shields MD Admitting Physician: Shala Shields MD Allergies, Adverse Reactions, Alerts Substance Reaction Severity Status azithromycin 1 Persistent Mild Active rifabutin Rash Persistent Moderate Active amLODIPine 2 Active 1Rash 2Had Lower extremity ankle swelling with 10mg. Immunizations Given and Recorded Vaccine Date Status Refusal Reason tetanus-diphtheria toxoids (Td) 11/13/21 Given hepatitis B [...] GIVEN DATED: 11/18/11 8Admin Note: VIS GIVEN ARMENIAN 2011-04 9Admin Note: vis given vis date 12/26/2009 10Admin Note: Prevnar 11Admin Note: VIS GIVEN VIS DATE 03/26 Medications acetaminophen 325 mg oral capsule 2 capsule = 650 mg, By Mouth, 3 times a day, PRN as needed for fever, for 30 days, # 180 capsule, 11 Refills, Acute 12/01/22 19:06:00 EDT, 12/06/21 19:06:00 EDT, Capsule, [facility]/pharmacy #[id number], Partial fill upon patient request if the prescription is for... Start Date: 12/06/21 Stop Date: 12/01/22 Status: Ordered Blood Pressure Monitor See Instructions, [...] mL, 11 Refills, Maintenance, 02/02/21 17:36:00 EDT, [facility], replaced tablets by suspension, 167.6, cm, 02/02/21 13:00:00 EDT, Height, 69.3, kg, 02/02/21 13:00... Start Date: 02/02/21 Stop Date: 01/04/22 Status: Ordered Colace sodium 100 mg oral capsule 100 mg, 1, capsule, By Mouth, 2 times a day, PRN, # 60 capsule, Refills 11, Tot. Refills 11, Maintenance, for constipation, 02/08/21 20:01:00 EDT, Route to Pharmacy Electronically, [facility]/pharmacy #[id number], Partial fill upon patient request if the prescript... Start Date: 02/08/21 Status: Ordered darunavir 800 mg oral tablet 1 tablet = 800 mg, By Mouth, Daily, with food, please get labs before refills, # 90 tablet, 3 Refills, Maintenance, 11/28/21 12:11:00 EDT, Tablet, [facility], Partial fill upon patient request if the prescription is for a schedule II... Start Date: 11/28/21 Status: Ordered diclofenac 1% topical gel 1 application, Topically, 4 times a day, # 100 Gm, 11 Refills, Maintenance, 12/06/21 19:06:00 EDT, Gel, [facility]/pharmacy #[id number], Partial fill upon patient request if the prescription is for a schedule II opioid drug., 167.6, cm, 12/06/21 18:07:00 EDT, [place]... Start Date: 12/06/21 Status: Ordered duloxetine 30 mg oral enteric coated capsule 1 capsule = 30 mg, By Mouth, Daily, start with duloxetine 30mg daily x 2 weeks then duloxetine 60mgdaily, # 14 capsule, 0 Refills, Maintenance, 12/06/21 19:06:00 EDT, [facility]/pharmacy #[id number], Partial fill upon patient request if the prescription is for a... Start Date: 12/06/21 Stop Date: 12/20/21 Status: Ordered duloxetine 60 mg oral enteric coated capsule 1 capsule = 60 mg, By Mouth, Daily, start with duloxetine 30mg daily x 2 weeks then duloxetine 60mgdaily, # 30 capsule, 4 Refills, Maintenance, 12/06/21 19:06:00 EDT, EC Capsule, [facility]/pharmacy #[id number],Partial fill upon patient request if the prescripti... Start Date: 12/06/21 Status: Ordered ferrous sulfate 325 mg oral enteric coated tablet 325 mg, 1, tablet, By Mouth, Every other day, # 30 tablet, Refills 11, Tot. Refills 11, Maintenance, 12/06/21 19:06:00 EDT, Route to Pharmacy Electronically, [facility]/pharmacy #[id number], Partial fill upon patient request if the prescription is for a schedule I... Start Date: 12/06/21 Status: Ordered Genvoya oral tablet 1 tablet, By Mouth, Daily, with food, please get labs before refills, # 90 tablet, 3 Refills, Maintenance, 11/28/21 12:10:00 EDT, Tablet, [facility], Partial fill upon patient request if the prescription is for a schedule II opioid Start Date: 11/28/21 Status: Ordered hydrochlorothiazide-lisinopril 25 mg-20 mg oral tablet 1 tablet, By Mouth, Daily, please get labs before refills, # 30 tablet, 0 Refills, Maintenance, 10/25/21 9:38:00 EDT, Tablet, [facility], d/c lisinopril 40 mg - change to combo med, 1 tablet By Mouth Daily,Instr:please get labs before... Start Date: 10/25/21 Status: Ordered metroNIDAZOLE 0.75% topical gel 1 applicator, Vaginally, Daily, # 70 Gm, 0 Refills, Maintenance, 11/20/21 14:08:00 EDT, [facility], Partial fill upon patient request if the prescription is for a schedule II opioid drug., 1 applicator Vaginally Daily,x5 days, 167.6,... Start Date: 11/20/21 Stop Date: 11/25/21 Status: Ordered MiraLax oral powder for reconstitution = 17 Gm, By Mouth, Daily, PRN Constipation, dissolve in water before taking, # 527 Gm, 11 Refills, Maintenance, 02/08/21 20:01:00 EDT, REC Powder, [facility]/pharmacy #[id number], Partial fill upon patient request if the prescription is for a schedule II opioid Start Date: 02/08/21 Status: Ordered Misc Rx Refills 0, Maintenance, [...] Date: 02/02/21 Stop Date: 01/28/22 Status: Ordered Thera oral tablet 1 tablet, By Mouth, Daily, # 30 tablet, 11 Refills, Maintenance, 03/09/21 16:13:00 EDT, Tablet, [facility], Partial fill upon patient request if the prescription is for a schedule IIopioid drug., 1 tablet By Mouth Daily, 167.6, cm, 1... Start Date: 03/09/21 Status: Ordered Problem List Condition Effective Dates Status Health Status Inform ant Anemia(Confirmed) Active Cervical dysplasia(Confirmed) Active Erosive esophagitis - EGD 01/2020(Confirmed) Active Esophageal ulcer(Confirmed) 1 Active Esophagitis, CMV - EDG 0, CMV ulcer(Confirmed) Active Fibromyalgia(Confirmed) Active Abnormal uterine bleeding(Confirmed) Active Hip pain(Confirmed) Active HSV(Confirmed) Active HIV disease(Confirmed) Active Hypertension(Confirmed) Active Iron deficiency anemia(Confirmed) Active Mild recurrent major depression(Confirmed) Active Urinary incontinence(Confirmed) Active 1EGD 07/2010 - likely apthous ulcers with very morbid 2 weeks of weight loss and requiring IV fluids Social History Social History Type Response Smoking Status Never smoker; Tobacc o user in household: No entered on: 01/26/15 Sex
--- OUTSIDE RECORDS SUMMARY | 2023-11-18 06:39 | XMS_ITS | Continuity of Care Document ---
Author Organization [facility] Address [address] [place] [address]- Care Team Providers Care Sql Manager Name Role Phone Cornelius REDDY, Shala Kuo Primary Care Physician [facility] Date[facility]s): 07/22/23 - 08/21/23 [facility] [address] [place], [place] [phone] Allergies, Adverse Reactions, Alerts Substance Reaction Severity [...] GIVEN DATED: 11/18/11 8Admin Note: VIS GIVEN MOHAWK 2011-04 9Admin Note: vis given vis date 12/26/2009 10Admin Note: Prevnar 11Admin Note: VIS GIVEN VIS DATE 03/26 Medications acetaminophen 325 mg oral tablet 650 mg, 2, tablet, By Mouth, 3 times a day, PRN, # 540 tablet, Refills 3, Tot. Refills 3, Maintenance, as needed for fever, 02/20/23 13:39:00 EDT, Route to Pharmacy Electronically, [facility], Partial fill upon patient request if the prescri... Start Date: 02/20/23 Status: Ordered Bactrim 400 mg-80 mg oral tablet 1 tablet, By Mouth, Daily, BUBBLE PACK, # 90 tablet, 1 Refills, Maintenance, 02/20/23 13:37:00 EDT,Tablet, [facility], Partial fill upon patient request if [...] EDT, Supply Start Date: 12/26/20 Status: Ordered Colace sodium 100 mg oral capsule 100 mg, 1, capsule, By Mouth, 2 times a day, PRN, # 60 capsule, Refills 11, Tot. Refills 11, Maintenance, for constipation, 02/20/23 13:39:00 EDT, Route to Pharmacy Electronically, [facility], Partial fill upon patient request if the prescri... Start Date: 02/20/23 Status: Ordered darunavir 800 mg oral tablet 1 tablet = 800 mg, By Mouth, Daily, with food, please get labs before refills; BUBBLE PACK, # 90 tablet, 1 Refills, Maintenance, 04/25/23 11:55:00 EST, Tablet, [facility], Partial fill upon patient request if the prescription is for a... Start Date: 04/25/23 Status: Ordered diclofenac 1% topical gel 1 application, Topically, 4 times a day, # 100 Gm, 11 Refills, Maintenance, 09/18/22 15:52:00 EDT, Gel, [facility], Partial fill upon patient request if the prescription is for a schedule II opioid drug., 167.6, cm, 07/04/22 16:00:00... Start Date: 09/18/22 Status: Ordered duloxetine 60 mg oral enteric coated capsule 1 capsule = 60 mg, By Mouth, Daily, start with duloxetine 30mg daily x 2 weeks then duloxetine 60mgdaily;, # 30 capsule, 4 Refills, Maintenance, 07/03/23 19:03:00 EST, EC Capsule, [facility], Partial fill upon patient request if [...] is for... Start Date: 02/20/23 Status: Ordered gabapentin 100 mg oral capsule 100 mg, 1, capsule, By Mouth, Daily at bedtime, PRN, # 30 capsule, Refills 4, Tot. Refills 4, Maintenance, Anxiety, 08/05/23 10:19:00 EDT, Route to Pharmacy Electronically, [facility], Partial fill upon patient request if the prescrip... Start Date: 08/05/23 Stop Date: 08/12/23 Status: Ordered Genvoya oral tablet 1 tablet, By Mouth, Daily, with food, please get labs before refills; BUBBLE PACK, # 90 tablet, 1 Refills, Maintenance, 04/25/23 11:55:00 EST, Tablet, [facility], Partial fill upon patient request if the prescription is for a schedule... Start Date: 04/25/23 Status: Ordered hydrochlorothiazide-olmesartan 25 mg-40 mg oral tablet 0.5 tablet, By Mouth, Daily, # 15 tablet, 4 Refills, Maintenance, 08/07/23 15:23:00 EDT, Tablet, [facility]/pharmacy #[id number], decrease dose, 0.5 tablet By Mouth Daily, 167.6, cm, 08/05/23 9:50:00 EDT, Height Start Date: 08/07/23 Status: Ordered Lidoderm 5% film 2 patch, Topically, Daily, remove patches after 12 hours; 2 patches to pain areas; can cut patches in half; do not excede 2 patches., # 60 patch, 4 Refills, Maintenance, 03/06/23 15:42:00 EDT, [facility]/pharmacy #[id number], Partial fill upon patient request if t... Start Date: 03/06/23 Stop Date: 08/03/23 Status: Ordered [facility] Rx Refills 0, Maintenance, Calcium/Mg/ Zinc 1 tablet daily, 01/23/21 17:47:00 EDT, Supply Start Date: 01/23/21 Status: Ordered naltrexone 50 mg oral tablet 1 tablet = 50 mg, By Mouth, Daily, # 30 tablet, 4 Refills, Maintenance, 07/28/23 16:46:00 EDT, Tablet, [facility]/pharmacy #[id number], Partial fill upon patient request if [...] Refills, Maintenance, 07/03/23 18:52:00 EST, REC Powder, [facility], Partial fill upon patient request if the prescription is for a schedule II opioid drug., 17 Gm... Start Date: 07/03/23 Stop Date: 10/01/23 Status: Ordered Thera oral tablet 1 tablet, By Mouth, Daily, BUBBLE PACK, # 90 tablet, 3 Refills, Maintenance, 02/20/23 13:37:00 EDT,Tablet, [facility], Partial fill upon patient request if the prescription is for a schedule II opioid drug., 1 tablet By Mouth Daily,Instr:BU... 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 Sex Patient Care team information Care Team Personnel Name: Jaky Nicole RN Position: [facility] RN Member Role: Primary Care Nurse Name: Rhea Brooks Position: S RN Member Role: Primary Care Nurse Name: Shala Shields MD Position: S Physician - Primary Care Member Role: PCP Address: Address: [address] [place] [address] Adult Medicine [address] Name: Kassi Wang RN Position: [facility] RN Member Role: Primary Care Nurse Name: Isabell David RN Position: [facility] Office Staff Member Role: Primary Care Nurse Care Team Related Persons Name: OSHEA REYES Address: [address] [address] Name: SHANIKA ZAVALA Address: home [address] [place] [address]
--- OUTSIDE RECORDS SUMMARY | 2023-11-18 06:39 | XMS_ITS | Continuity of Care Document ---
Author Organization [facility] y Address [address] [place] [address]- Care Team Providers Care Cardboard Cutter Name Role Phone Shala Shields MD Primary Care Physician [facility] Date[facility]s): 01/29/23 - 02/28/23 [facility] [address] [place], [place] [address] Allergies, Adverse Reactions, Alerts Substance Reaction Severity [...] GIVEN DATED: 11/18/11 8Admin Note: VIS GIVEN LUXEMBOURGISH 2011-04 9Admin Note: vis given vis date 12/26/2009 10Admin Note: Prevnar 11Admin Note: VIS GIVEN VIS DATE 03/26 Medications acetaminophen 325 mg oral tablet 650 mg, 2, tablet, By Mouth, 3 times a day, PRN, # 540 tablet, Refills 3, Tot. Refills 3, Maintenance, as needed for fever, 02/20/23 13:39:00 EDT, Route to Pharmacy Electronically, [facility], Partial fill upon patient request if the prescri... Start Date: 02/20/23 Status: Ordered Bactrim 400 mg-80 mg oral tablet 1 tablet, By Mouth, Daily, BUBBLE PACK, # 90 tablet, 1 Refills, Maintenance, 02/20/23 13:37:00 EDT,Tablet, [facility], Partial fill upon patient request if [...] mL, 11 Refills, Maintenance, 09/18/22 15:52:00 EDT, [facility], replaced tablets by suspension, 167.6, cm, 07/04/22 16:00:00 EST, Height, 69.3, kg, 02/02/21 13:00... Start Date: 09/18/22 Stop Date: 08/20/23 Status: Ordered Colace sodium 100 mg oral capsule 100 mg, 1, capsule, By Mouth, 2 times a day, PRN, # 60 capsule, Refills 11, Tot. Refills 11, Maintenance, for constipation, 02/20/23 13:39:00 EDT, Route to Pharmacy Electronically, [facility], Partial fill upon patient request if the prescri... Start Date: 02/20/23 Status: Ordered darunavir 800 mg oral tablet 1 tablet = 800 mg, By Mouth, Daily, with food, please get labs before refills; BUBBLE PACK, # 90 tablet, 1 Refills, Maintenance, 02/20/23 13:39:00 EDT, Tablet, [facility], Partial fill uponpatient request if the prescription is for a schedu... Start Date: 02/20/23 Status: Ordered diclofenac 1% topical gel 1 application, Topically, 4 times a day, # 100 Gm, 11 Refills, Maintenance, 09/18/22 15:52:00 EDT, Gel, [facility], Partial fill upon patient [...] capsule, 0 Refills, Maintenance, 02/20/23 13:46:00 EDT, [facility], Partial fill upon patient request if the prescri... Start Date: 02/20/23 Stop Date: 03/06/23 Status: Ordered duloxetine 60 mg oral enteric coated capsule 1 capsule = 60 mg, By Mouth, Daily, start with duloxetine 30mg daily x 2 weeks then duloxetine 60mgdaily; BUBBLE PACK, # 30 capsule, 4 Refills, Maintenance, 02/20/23 13:46:00 EDT, EC Capsule, [facility], Partial fill upon patient request if... Start Date: 02/20/23 Status: Ordered ferrous sulfate 325 mg oral enteric coated tablet 325 mg, 1, tablet, By Mouth, Every other day, BUBBLE PACK, # 45 tablet, Refills 3, Tot. Refills 3, Maintenance, 02/20/23 13:37:00 EDT, Route to Pharmacy Electronically, [facility], Partial fill upon patient request if the prescription is for... Start Date: 02/20/23 Status: Ordered Genvoya oral tablet 1 tablet, By Mouth, Daily, with food, please get labs before refills; BUBBLE PACK, # 90 tablet, 1 Refills, Maintenance, 02/20/23 13:39:00 EDT, Tablet, [facility], Partial fill upon patient request if the prescription is for a schedule II opi... Start Date: 02/20/23 Status: Ordered hydrochlorothiazide-olmesartan 25 mg-40 mg oral tablet 1 tablet, By Mouth, Daily, BUBBLE PACK, # 90 tablet, 3 Refills, Maintenance, 02/20/23 13:37:00 EDT,Tablet, [facility], d/c HCTZ/lisinopril, 1 tablet By Mouth Daily,Instr:BUBBLE PACK, 167.6, cm, 12/23/22 8:35:00 EDT, Height Start Date: 02/20/23 Status: Ordered MetroGel 1% topical gel 1 application, Topically, Daily, PRN facial rash, # 60 Gm, 11 Refills, Maintenance, 12/23/22 8:40:00 EDT, Gel, [facility], Partial fill upon patient request if the prescription is for a schedule II opioid drug., 1 application Topicall... Start Date: 12/23/22 Status: Ordered MiraLax oral powder for reconstitution = 17 Gm, By Mouth, Daily, PRN Constipation, dissolve in water before taking, # 527 Gm, 11 Refills, Maintenance, 02/20/23 13:39:00 EDT, REC Powder, [facility], Partial fill upon patient request if the prescription is for a schedule II opioid... Start Date: 02/20/23 Status: Ordered Misc Rx Refills 0, Maintenance, [...] Refills, Soft Stop, 12/23/22 8:46:00 EDT, Powder, [facility], Partial fill upon patient request if the prescription is for a schedule II opioid drug., 0.5 mL Int... Start Date: 12/23/22 Status: Ordered Thera oral tablet 1 tablet, By Mouth, Daily, BUBBLE PACK, # 90 tablet, 3 Refills, Maintenance, 02/20/23 13:37:00 EDT,Tablet, [facility], Partial fill upon patient request if the prescription is for a schedule II opioid drug., 1 tablet By Mouth Daily,Instr:BU... Start Date: 02/20/23 Status: Ordered Problem List Condition Confirmation Course Effective Dates Status H ealth Status Informant Anemia Confirmed Active Cervical dysplasia Confirmed Active Dysphagia - with solids, multiple prior radha esophagitis; Confirmed Active Erosive esophagitis - EGD 01/2020 Confirmed Active Esophageal ulcer 1 Confirmed Active Esophagitis, CMV - EDG 01/2020, CMV ulcer Confirmed Active Fibromyalgia Confirmed Active Abnormal uterine bleeding Confirmed Active HSV Confirmed Active HIV disease Confirmed Active Hypertension Confirmed Active Iron deficiency anemia Confirmed Active Osteoarthritis of right hip Confirmed Active Symphasis pubis OA, left Confirmed Active *Catalina Diaz 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-[facility] [phone] Confirmed Active Mild recurrent major depression Confirmed [...] Care Nurse Name: Shala Shields MD Position: [facility] Physician - Primary Care Member Role: PCP Address: Address: [address] [place] [address] Name: Kassi Wang RN Position: [facility] RN Member Role: Primary Care Nurse Name: Isabell David RN Position: [facility] SN RN Member Role: Primary Care Nurse Name: Tamy Lamb RN Position: [facility] RN Member Role: Primary Care Nurse Care Team Related Persons Name: REYES OSHEA Address: [address] [facility] [address] [place] [id number] Name: SHANIKA ZAVALA Address: home [address] [place] [address]
--- OUTSIDE RECORDS SUMMARY | 2023-11-18 06:39 | XMS_ITS | Continuity of Care Document ---
Author Organization [facility] y Address [address] [place] [address]- Care Team Providers Care Insurance Special Agent Name Role Phone Maisha Lin DO Primary Care Physician Encounter [facility] Date(s): 05/04/20 - 06/03/20 [facility] [address] [place] [address]- Attending Physician: Jairo Ochoa Admitting Physician: Jairo Ochoa Referring Physician: AdmJairo he Allergies, Adverse Reactions, Alerts Substance Reaction Severity [...] GIVEN DATED: 11/18/11 8Admin Note: VIS GIVEN SAO TOMEAN 2011-04 9Admin Note: vis given vis date 12/26/2009 10Admin Note: Prevnar 11Admin Note: VIS GIVEN VIS DATE 03/26 Medications Bactrim DS 800 mg-160 mg oral tablet 1 tablet, By Mouth, Daily, for 30 days, # 30 tablet, 6 Refills, Acute 10/12/20 9:47:00 EDT, 03/16/20 9:47:00 EDT, Tablet, [facility], 1 tablet By Mouth Daily,x30 days, 168, cm, 03/16/20 8:08:00 EDT, Height, 71.6, kg, 02/11/20 4:57:00... Start Date: 03/16/20 Stop Date: 10/12/20 Status: Ordered darunavir 800 mg oral tablet 1 tablet = 800 mg, By Mouth, Daily, # 30 tablet, 2 Refills, Maintenance, 03/16/20 9:01:00 EDT, Tablet, [facility], 168, cm, 03/16/20 8:08:00 EDT, Height, 71.6, kg, 02/11/20 4:57:00 EDT, Dry Weight Start Date: 03/16/20 Stop Date: 06/14/20 Status: Ordered docusate sodium 100 mg oral capsule 100 mg, 1, capsule, By Mouth, 2 times a day, # 28 capsule, Refills 3, Tot. Refills 3, Maintenance, 03/16/20 9:41:00 EDT, Route to Pharmacy Electronically, [facility], 168, cm, 03/16/20 8:08:00 EDT, Height, 71.6, kg, 02/11/20 4:57:00 E... Start Date: 03/16/20 Stop Date: 05/11/20 Status: Ordered doxepin 25 mg oral capsule 3 capsule = 75 mg, By Mouth, Daily at bedtime, Please fill today, # 90 capsule, 5 Refills, Maintenance, 03/16/20 9:49:00 EDT, Capsule, [facility], 168, cm, 03/16/20 8:08:00 EDT, Height, 71.6, kg, 02/11/20 4:57:00 EDT, Dry Weight Start Date: 03/16/20 Stop Date: 09/12/20 Status: Ordered ferrous sulfate 325 mg oral enteric coated tablet 325 mg, 1, tablet, By Mouth, Daily, # 30 tablet, Refills 5, Tot. Refills 5, Maintenance, 04/24/20 11:06:00 EST, Route to Pharmacy Electronically, [facility]/pharmacy #[id number], Partial fill upon patient requestif the prescription is for a schedule II opioid sudhir... Start Date: 04/24/20 Stop Date: 10/21/20 Status: Ordered Genvoya oral tablet 1 tablet, By Mouth, Daily, with food, # 30 tablet, 2 Refills, Maintenance, 03/16/20 9:00:00 EDT, Tablet, [facility], 1 tablet By Mouth Daily,x30 days,Instr:with food, 168, cm, 03/16/20 8:08:00 EDT, Height, 71.6, kg, 02/11/20 4:57:00 E... Start Date: 03/16/20 Stop Date: 06/14/20 Status: Ordered influenza virus vaccine, inactivated adjuvanted preservative-free quadrivalent intramuscular susp 0.5 mL, Intramuscular, Once, # 0.5 mL, 0 Refills, Soft Stop, 03/16/20 8:57:00 EDT, Suspension, [facility] 0.5 mL Intramuscular Once, 168, cm, 03/16/20 8:08:00 EDT, Height, 71.6, kg, 02/11/20 4:57:00 EDT, Dry Weight Start Date: 03/16/20 Status: Ordered lisinopril 20 mg oral tablet 20 mg, 1, tablet, By Mouth, Daily, # 30 tablet, Refills 5, Tot. Refills 5, Maintenance, 03/16/20 9:46:00 EDT, Route to Pharmacy Electronically, [facility], Please buble pack, 168, cm, 03/16/20 8:08:00 EDT, Height, 71.6, kg, 02/11/20 4... Start Date: 03/16/20 Stop Date: 09/12/20 Status: Ordered pantoprazole 40 mg oral delayed release tablet = 40 mg, By Mouth, 2 times a day, # 28 tablet, 11 Refills, Maintenance, 05/01/20 13:17:00 EST, EC Tablet, 168, cm, 04/19/20 15:17:00 EST, Height, 71.6, kg, 02/11/20 4:57:00 EDT, Dry Weight Start Date: 05/01/20 Stop Date: 10/16/20 Status: Ordered Problem List Condition Effective Dates [...] Most recent to oldest [Reference Range]: 1 Pulse Rate [55-90 bpm] 93 bpm *H* (08/02/10 12:30 PM) Blood Pressure [90-138/55-84 mm Hg] 126/ 64mm Hg (08/02/10 12:30 PM) Social History Social History Type Response Smoking Status Never smoker; Tobacc o user in household: No entered on: 01/26/15 Sex
--- OUTSIDE RECORDS SUMMARY | 2023-11-18 06:40 | XMS_ITS | Continuity of Care Document ---
Author Organization [facility] Address [address] [place] [address]- Care Team Providers Care Loading Unit Operator Name Role Phone Shala Shields MD Primary Care Physician [phone] Encounter [facility] Date(s): 04/03/23 - 06/21/23 [facility] [address] [place] [address] Attending Physician: Shala Shields MD Admitting Physician: Shala Shields MD Allergies, Adverse Reactions, Alerts Substance Reaction Severity Status azithromycin 1 Persistent Mild Active rifabutin Rash Persistent Moderate Active amLODIPine 2 Active 1Rash 2Had Lower extremity ankle swelling with 10mg. Immunizations Given and Recorded Vaccine Date Status Refusal Reason SARS-CoV-2 (COVID-19) mRNA-2908 vaccine 04/04/22 G iven influenza virus vaccine, [...] adult vaccine 06/28/21 Given pneumococcal 23-valent vaccine 2/10/22 Given pneumococcal 23-valent vaccine 04/27/13 Given SARS-CoV-2 [...] 02/20/23 13:39:00 EDT, Route to Pharmacy Electronically, [facility], Partial fill upon patient request if the prescri... Start Date: 02/20/23 Status: Ordered Bactrim 400 mg-80 mg oral tablet 1 tablet, By Mouth, Daily, BUBBLE PACK, # 90 tablet, 1 Refills, Maintenance, 02/20/23 13:37:00 EDT,Tablet, [facility], Partial fill upon patient request if [...] mL, 11 Refills, Maintenance, 09/18/22 15:52:00 EDT, [facility], replaced tablets by suspension, 167.6, cm, 07/04/22 16:00:00 EST, Height, 69.3, kg, 02/02/21 13:00... Start Date: 09/18/22 Stop Date: 08/20/23 Status: Ordered Colace sodium 100 mg oral capsule 100 mg, 1, capsule, By Mouth, 2 times a day, PRN, # 60 capsule, Refills 11, Tot. Refills 11, Maintenance, for constipation, 02/20/23 13:39:00 EDT, Route to Pharmacy Electronically, [facility], Partial fill upon patient request if the prescri... Start Date: 02/20/23 Status: Ordered darunavir 800 mg oral tablet 1 tablet = 800 mg, By Mouth, Daily, with food, please get labs before refills; BUBBLE PACK, # 90 tablet, 1 Refills, Maintenance, 04/25/23 11:55:00 EST, Tablet, [facility], Partial fill upon patient request if the prescription is for a... Start Date: 04/25/23 Status: Ordered diclofenac 1% topical gel 1 application, Topically, 4 times a day, # 100 Gm, 11 Refills, Maintenance, 09/18/22 15:52:00 EDT, Gel, [facility], Partial fill upon patient request if the prescription is for a schedule II opioid drug., 167.6, cm, 07/04/22 16:00:00... Start Date: 09/18/22 Status: Ordered duloxetine 30 mg oral enteric coated capsule 1 capsule = 30 mg, By Mouth, Daily, start with duloxetine 30mg daily x 2 weeks then duloxetine 60mgdaily; BUBBLE PACK, # 14 capsule, 0 Refills, Maintenance, 02/20/23 13:46:00 EDT, [facility], Partial fill upon patient request if the prescri... Start Date: 02/20/23 Stop Date: 03/06/23 Status: Ordered duloxetine 60 mg oral enteric coated capsule 1 capsule = 60 mg, By Mouth, Daily, start with duloxetine 30mg daily x 2 weeks then duloxetine 60mgdaily; BUBBLE PACK, # 30 capsule, 4 Refills, Maintenance, 02/20/23 13:46:00 EDT, EC Capsule, [facility], Partial fill upon patient request if... Start Date: 02/20/23 Status: Ordered ferrous sulfate 325 mg oral enteric coated tablet 325 mg, 1, tablet, By Mouth, Every other day, BUBBLE PACK, # 45 tablet, Refills 3, Tot. Refills 3, Maintenance, 02/20/23 13:37:00 EDT, Route to Pharmacy Electronically, [facility], Partial fill upon patient request if the prescription is for... Start Date: 02/20/23 Status: Ordered Genvoya oral tablet 1 tablet, By Mouth, Daily, with food, please get labs before refills; BUBBLE PACK, # 90 tablet, 1 Refills, Maintenance, 04/25/23 11:55:00 EST, Tablet, [facility], Partial fill upon patient request if the prescription is for a schedule... Start Date: 04/25/23 Status: Ordered hydrochlorothiazide-olmesartan 25 mg-40 mg oral tablet 1 tablet, By Mouth, Daily, BUBBLE PACK, # 90 tablet, 3 Refills, Maintenance, 02/20/23 13:37:00 EDT,Tablet, [facility], d/c HCTZ/lisinopril, 1 tablet By Mouth Daily,Instr:BUBBLE PACK, 167.6, cm, 12/23/22 8:35:00 EDT, Height Start Date: 02/20/23 Status: Ordered Lidoderm 5% film 2 patch, Topically, Daily, remove patches after 12 hours; 2 patches to pain areas; can cut patches in half; do not excede 2 patches., # 60 patch, 4 Refills, Maintenance, 03/06/23 15:42:00 EDT, [facility]/pharmacy #[id number], Partial fill upon patient request if t... Start Date: 03/06/23 Stop Date: 08/03/23 Status: Ordered MetroGel 1% topical gel 1 application, Topically, Daily, PRN facial rash, # 60 Gm, 11 Refills, Maintenance, 12/23/22 8:40:00 EDT, Gel, [facility], Partial fill upon patient request if the prescription is for a schedule II opioid drug., 1 application Topicall... Start Date: 12/23/22 Status: Ordered MiraLax oral powder for reconstitution = 17 Gm, By Mouth, Daily, PRN Constipation, dissolve in water before taking, # 527 Gm, 11 Refills, Maintenance, 02/20/23 13:39:00 EDT, REC Powder, [facility], Partial fill upon patient request if the prescription is for a schedule II opioid... Start Date: 02/20/23 Status: Ordered [facility] Rx Refills 0, Maintenance, [...] Refills, Soft Stop, 12/23/22 8:46:00 EDT, Powder, [facility], Partial fill upon patient request if the prescription is for a schedule II opioid drug., 0.5 mL Int... Start Date: 12/23/22 Status: Ordered Thera oral tablet 1 tablet, By Mouth, Daily, BUBBLE PACK, # 90 tablet, 3 Refills, Maintenance, 02/20/23 13:37:00 EDT,Tablet, [facility], Partial fill upon patient request if [...] pubis OA, left Confirmed Active *Catalina Diaz Bolt Labeler-[facility] [phone] Confirmed Active Mild recurrent major depression Confirmed [...] Team Personnel Name: Jaky Nicole RN Position: [facility] RN Member Role: Primary Care Nurse Name: Rhea Brooks Position: S RN Member Role: Primary Care Nurse Name: Shala Shields MD Position: [facility] Physician - Primary Care Member Role: PCP Address: Address: [address] [place] [address] [place], [place] [address] Name: Kassi Wang RN Position: S RN Member Role: Primary Care Nurse Name: Isabell David RN Position: [facility] SN RN Member Role: Primary Care Nurse Care Team Related Persons Name: REYES OSHEA Address: home [address] [place] [id number] Name: SHANIKA ZAVALA Address: home [address] [place] [address]
--- OUTSIDE RECORDS SUMMARY | 2023-11-18 06:40 | XMS_ITS | Continuity of Care Document ---
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 Refills 3, Maintenance, as needed for fever, 02/20/23 13:39:00 EDT, Route to Pharmacy Electronically, [facility], Partial fill upon patient request if the prescri... Start Date: 02/20/23 Status: Ordered Bactrim 400 mg-80 mg oral tablet 1 tablet, By Mouth, Daily, BUBBLE PACK, # 90 tablet, 1 Refills, Maintenance, 02/20/23 13:37:00 EDT,Tablet, [facility], Partial fill upon patient request if [...] mL, 11 Refills, Maintenance, 09/18/22 15:52:00 EDT, [facility], replaced tablets by suspension, 167.6, [...] 1 Refills, Maintenance, 02/20/23 13:39:00 EDT, Tablet, [facility], Partial fill uponpatient request if the prescription is for a schedu... Start Date: 02/20/23 Status: Ordered diclofenac 1% topical gel 1 application, Topically, 4 times a day, # 100 Gm, 11 Refills, Maintenance, 09/18/22 15:52:00 EDT, Gel, [facility], Partial fill upon patient [...] capsule, 0 Refills, Maintenance, 02/20/23 13:46:00 EDT, [facility], Partial fill upon patient request if the prescri... Start Date: 02/20/23 Stop Date: 03/06/23 Status: Ordered duloxetine 60 mg oral enteric coated capsule 1 capsule = 60 mg, By Mouth, Daily, start with duloxetine 30mg daily x 2 weeks then duloxetine 60mgdaily; BUBBLE PACK, # 30 capsule, 4 Refills, Maintenance, 02/20/23 13:46:00 EDT, EC Capsule, [facility], Partial fill upon patient request if... [...] 1 Refills, Maintenance, 02/20/23 13:39:00 EDT, Tablet, [facility], Partial fill upon patient request if the prescription is for a schedule II opi... Start Date: 02/20/23 Status: Ordered hydrochlorothiazide-olmesartan 25 mg-40 mg oral tablet 1 tablet, By Mouth, Daily, BUBBLE PACK, # 90 tablet, 3 Refills, Maintenance, 02/20/23 13:37:00 EDT,Tablet, [facility], d/c HCTZ/lisinopril, 1 tablet By Mouth Daily,Instr:BUBBLE PACK, 167.6, cm, 12/23/22 8:35:00 EDT, Height Start Date: 02/20/23 Status: Ordered Lidoderm 5% film 2 patch, Topically, Daily, remove patches after 12 hours; 2 patches to pain areas; can cut patches in half; do not excede 2 patches., # 60 patch, 4 Refills, Maintenance, 03/06/23 15:42:00 EDT, [facility]/pharmacy #[id number], Partial fill upon patient request if t... Start Date: 03/06/23 Stop Date: 08/03/23 Status: Ordered MetroGel 1% topical gel 1 application, Topically, Daily, PRN facial rash, # 60 Gm, 11 Refills, Maintenance, 12/23/22 8:40:00 EDT, Gel, [facility], Partial fill upon patient request if the prescription is for a schedule II opioid drug., 1 application Topicall... Start Date: 12/23/22 Status: Ordered MiraLax oral powder for reconstitution = 17 Gm, By Mouth, Daily, PRN Constipation, dissolve in water before taking, # 527 Gm, 11 Refills, Maintenance, 02/20/23 13:39:00 EDT, REC Powder, [facility], Partial fill upon patient request if the prescription is for a schedule II opioid... Start Date: 02/20/23 Status: Ordered [facility] Rx Refills 0, Maintenance, Calcium/Mg/ Zinc 1 [...] Refills, Soft Stop, 12/23/22 8:46:00 EDT, Powder, [facility], Partial fill upon patient [...] pubis OA, left Confirmed Active *Catalina Diaz Soil Scientist-[facility] [phone] Confirmed Active Mild recurrent major depression Confirmed [...] Care Nurse Name: Shala Shields MD Position: [facility] Physician - Primary Care Member Role: PCP Address: Address: [address] [place] [address] [place], [place] [address] Name: Kassi Wang RN Position: S RN Member Role: Primary Care Nurse Name: Isabell David RN Position: [facility] SN RN Member Role: Primary Care Nurse Care Team Related Persons Name: OSHEA REYES Address: home [address] [place] [id number] Name: SHANIKA ZAVALA Address: home [address] [place] [address]
--- OUTSIDE RECORDS SUMMARY | 2023-11-18 06:40 | XMS_ITS | Continuity of Care Document ---
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 [address] [place], [place] [address] Allergies, Adverse Reactions, Alerts Substance Reaction Severity [...] GIVEN DATED: 11/18/11 8Admin Note: VIS GIVEN GREEN[place] 2011-04 9Admin Note: vis given vis date 12/26/2009 10Admin Note: Prevnar 11Admin Note: VIS GIVEN VIS DATE 03/26 Medications acetaminophen 325 mg oral tablet 650 mg, 2, tablet, By Mouth, 3 times a day, PRN, # 540 tablet, Refills 3, Tot. Refills 3, Maintenance, as needed for fever, 02/20/23 13:39:00 EDT, Route to Pharmacy Electronically, [facility], Partial fill upon patient request if the prescri... Start Date: 02/20/23 Status: Ordered Bactrim 400 mg-80 mg oral tablet 1 tablet, By Mouth, Daily, BUBBLE PACK, # 90 tablet, 1 Refills, Maintenance, 02/20/23 13:37:00 EDT,Tablet, [facility], Partial fill upon patient request if [...] mL, 11 Refills, Maintenance, 09/18/22 15:52:00 EDT, [facility], replaced tablets by suspension, 167.6, cm, 07/04/22 16:00:00 EST, Height, 69.3, kg, 02/02/21 13:00... Start Date: 09/18/22 Stop Date: 08/20/23 Status: Ordered Colace sodium 100 mg oral capsule 100 mg, 1, capsule, By Mouth, 2 times a day, PRN, # 60 capsule, Refills 11, Tot. Refills 11, Maintenance, for constipation, 02/20/23 13:39:00 EDT, Route to Pharmacy Electronically, [facility], Partial fill upon patient request if the prescri... Start Date: 02/20/23 Status: Ordered darunavir 800 mg oral tablet 1 tablet = 800 mg, By Mouth, Daily, with food, please get labs before refills; BUBBLE PACK, # 90 tablet, 1 Refills, Maintenance, 02/20/23 13:39:00 EDT, Tablet, [facility], Partial fill uponpatient request if the prescription is for a schedu... Start Date: 02/20/23 Status: Ordered diclofenac 1% topical gel 1 application, Topically, 4 times a day, # 100 Gm, 11 Refills, Maintenance, 09/18/22 15:52:00 EDT, Gel, [facility], Partial fill upon patient request if the prescription is for a schedule II opioid drug., 167.6, cm, 07/04/22 16:00:00... Start Date: 09/18/22 Status: Ordered duloxetine 30 mg oral enteric coated capsule 1 capsule = 30 mg, By Mouth, Daily, start with duloxetine 30mg daily x 2 weeks then duloxetine 60mgdaily; BUBBLE PACK, # 14 capsule, 0 Refills, Maintenance, 02/20/23 13:46:00 EDT, [facility], Partial fill upon patient request if the prescri... Start Date: 02/20/23 Stop Date: 03/06/23 Status: Ordered duloxetine 60 mg oral enteric coated capsule 1 capsule = 60 mg, By Mouth, Daily, start with duloxetine 30mg daily x 2 weeks then duloxetine 60mgdaily; BUBBLE PACK, # 30 capsule, 4 Refills, Maintenance, 02/20/23 13:46:00 EDT, EC Capsule, [facility], Partial fill upon patient request if... Start Date: 02/20/23 Status: Ordered ferrous sulfate 325 mg oral enteric coated tablet 325 mg, 1, tablet, By Mouth, Every other day, BUBBLE PACK, # 45 tablet, Refills 3, Tot. Refills 3, Maintenance, 02/20/23 13:37:00 EDT, Route to Pharmacy Electronically, [facility], Partial fill upon patient request if the prescription is for... Start Date: 02/20/23 Status: Ordered Genvoya oral tablet 1 tablet, By Mouth, Daily, with food, please get labs before refills; BUBBLE PACK, # 90 tablet, 1 Refills, Maintenance, 02/20/23 13:39:00 EDT, Tablet, [facility], Partial fill upon patient request if the prescription is for a schedule II opi... Start Date: 02/20/23 Status: Ordered hydrochlorothiazide-olmesartan 25 mg-40 mg oral tablet 1 tablet, By Mouth, Daily, BUBBLE PACK, # 90 tablet, 3 Refills, Maintenance, 02/20/23 13:37:00 EDT,Tablet, [facility], d/c HCTZ/lisinopril, 1 tablet By Mouth Daily,Instr:BUBBLE PACK, 167.6, cm, 12/23/22 8:35:00 EDT, Height Start Date: 02/20/23 Status: Ordered Lidoderm 5% film 2 patch, Topically, Daily, remove patches after 12 hours; 2 patches to pain areas; can cut patches in half; do not excede 2 patches., # 60 patch, 4 Refills, Maintenance, 03/06/23 15:42:00 EDT, [facility]/pharmacy #[id number], Partial fill upon patient request if t... Start Date: 03/06/23 Stop Date: 08/03/23 Status: Ordered MetroGel 1% topical gel 1 application, Topically, Daily, PRN facial rash, # 60 Gm, 11 Refills, Maintenance, 12/23/22 8:40:00 EDT, Gel, [facility], Partial fill upon patient request if the prescription is for a schedule II opioid drug., 1 application Topicall... Start Date: 12/23/22 Status: Ordered MiraLax oral powder for reconstitution = 17 Gm, By Mouth, Daily, PRN Constipation, dissolve in water before taking, # 527 Gm, 11 Refills, Maintenance, 02/20/23 13:39:00 EDT, REC Powder, [facility], Partial fill upon patient request if [...] Refills, Soft Stop, 12/23/22 8:46:00 EDT, Powder, [facility], Partial fill upon patient request if the prescription is for a schedule II opioid drug., 0.5 mL Int... Start Date: 12/23/22 Status: Ordered Thera oral tablet 1 tablet, By Mouth, Daily, BUBBLE PACK, # 90 tablet, 3 Refills, Maintenance, 02/20/23 13:37:00 EDT,Tablet, [facility], Partial fill upon patient request if the prescription is for a schedule II opioid drug., 1 tablet By Mouth Daily,Instr:BU... Start Date: 02/20/23 Status: Ordered tiZANidine 4 mg oral capsule 1 capsule = 4 mg, By Mouth, 3 times a day, # 21 capsule, 0 Refills, Maintenance, 03/06/23 15:41:00 EDT, Capsule, [facility]/pharmacy #[id number], Partial fill upon patient request if the [...] pubis OA, left Confirmed Active *Catalina Diaz Mica Laminating Machine Feeder-[facility] [phone] Confirmed Active Mild recurrent major depression Confirmed [...] Team Personnel Name: Jaky Nicole RN Position: [facility] RN Member Role: Primary Care Nurse Name: Rhea Heard Position: [facility] RN Member Role: Primary Care Nurse Name: Shala Shields MD Position: [facility] Physician - Primary Care Member Role: PCP Address: Address: [address] [place] [address] Name: Kassi Wang RN Position: [facility] RN Member Role: Primary Care Nurse Name: Isabell David RN Position: [facility] SN RN Member Role: Primary Care Nurse Name: Tmay Lamb RN Position: [facility] RN Member Role: Primary Care Nurse Care Team Related Persons Name: REYES OSHEA Address: home [address] [address] Name: SHANIKA ZAVALA Address: home [address] [place] [address]
--- OUTSIDE RECORDS SUMMARY | 2023-11-18 06:40 | XMS_ITS | Continuity of Care Document ---
Author Organization [facility] An[facility]a Hoyos n[facility] Address [address], [address] [place] [address]- Care Team Providers Care Market Sales Manager Name Role Phone Maisha Lin DO Primary Care Physician Encounter [facility] Date(s): 06/15/20 - 07/15/20 [facility] [address] [place], [place] [address] Attending Physician: AdmJairo he Admitting Physician: Admtr, Adonis8 Referring Physician: Admtr, Ar8 Allergies, Adverse Reactions, [...] GIVEN DATED: 11/18/11 8Admin Note: VIS GIVEN ICELANDIC 2011-04 9Admin Note: vis given vis date 12/26/2009 10Admin Note: Prevnar 11Admin Note: VIS GIVEN VIS DATE 03/26 Medications Bactrim DS 800 mg-160 mg oral tablet 1 tablet, By Mouth, Daily, for 30 days, # 30 tablet, 6 Refills, Acute 10/12/20 9:47:00 EDT, 03/16/20 9:47:00 EDT, Tablet, [facility], 1 tablet By Mouth Daily,x30 days, 168, cm, 03/16/20 8:08:00 EDT, Height, 71.6, kg, 02/11/20 4:57:00... Start Date: 03/16/20 Stop Date: 10/12/20 Status: Ordered darunavir 800 mg oral tablet 1 tablet = 800 mg, By Mouth, Daily, # 30 tablet, 2 Refills, Maintenance, 06/08/20 10:47:00 EST, Tablet, [facility], 168, cm, 04/19/20 15:17:00 EST, Height, 71.6, kg, 02/11/20 4:57:00EDT, Dry Weight Start Date: 06/08/20 Stop Date: 09/06/20 Status: Ordered docusate sodium 100 mg oral capsule 100 mg, 1, capsule, By Mouth, 2 times a day, # 28 capsule, Refills 3, Tot. Refills 3, Maintenance, 03/16/20 9:41:00 EDT, Route to Pharmacy Electronically, [facility], 168, cm, 03/16/20 8:08:00 EDT, Height, 71.6, kg, 02/11/20 4:57:00 E... Start Date: 03/16/20 Stop Date: 05/11/20 Status: Ordered doxepin 25 mg oral capsule 3 capsule = 75 mg, By Mouth, Daily at bedtime, Please fill today, # 90 capsule, 5 Refills, Maintenance, 03/16/20 9:49:00 EDT, Capsule, [facility], 168, cm, 03/16/20 8:08:00 EDT, Height, 71.6, kg, 02/11/20 4:57:00 EDT, Dry Weight Start Date: 03/16/20 Stop Date: 09/12/20 Status: Ordered ferrous sulfate 325 mg oral enteric coated tablet 325 mg, 1, tablet, By Mouth, Daily, # 30 tablet, Refills 5, Tot. Refills 5, Maintenance, 04/24/20 11:06:00 EST, Route to Pharmacy Electronically, [facility]/pharmacy #[id number], Partial fill upon patient requestif the prescription is for a schedule II opioid sudhir... Start Date: 04/24/20 Stop Date: 10/21/20 Status: Ordered Genvoya oral tablet 1 tablet, By Mouth, Daily, with food, # 30 tablet, 2 Refills, Maintenance, 06/08/20 10:47:00 EST, Tablet, [facility], 1 tablet By Mouth Daily,x30 days,Instr:with food, 168, cm, 04/19/20 15:17:00 EST, Height, 71.6, kg, 02/11/20 4:57:00... Start Date: 06/08/20 Stop Date: 09/06/20 Status: Ordered influenza virus vaccine, inactivated adjuvanted preservative-free quadrivalent intramuscular susp 0.5 mL, Intramuscular, Once, # 0.5 mL, 0 Refills, Soft Stop, 03/16/20 8:57:00 EDT, Suspension, [facility] 0.5 mL Intramuscular Once, 168, cm, 03/16/20 8:08:00 EDT, Height, 71.6, kg, 02/11/20 4:57:00 EDT, Dry Weight Start Date: 03/16/20 Status: Ordered lisinopril 20 mg oral tablet 20 mg, 1, tablet, By Mouth, Daily, # 30 tablet, Refills 5, Tot. Refills 5, Maintenance, 06/08/20 10:46:00 EST, Route to Pharmacy Electronically, [facility], Please buble pack, 168, cm, 04/19/20 15:17:00 EST, Height, 71.6, kg, 02/11/20... Start Date: 06/08/20 Stop Date: 12/05/20 Status: Ordered pantoprazole 40 mg oral delayed [...]
--- OUTSIDE RECORDS SUMMARY | 2023-11-18 06:40 | XMS_ITS | Continuity of Care Document ---
Author Organization [facility] Address [address] [place] [address]- Care Team Providers Care Iso Coordinator Name Role Phone Timmy MERCER, Daphney Heard Primary Care Physician [facility] Date[facility]s): 08/27/19 - 09/06/19 [facility] [address] [place] [address]- [facility] Attending Physician: Jairo Ochoa Admitting Physician: AdmtrJairo Referring Physician: Admtr, Ar8 Allergies, Adverse Reactions, [...] GIVEN DATED: 11/18/11 8Admin Note: VIS GIVEN MEXICAN 2011-04 9Admin Note: vis given vis date [...] 2 Refills, Maintenance, 05/18/19 11:15:00 EST, Tablet, [facility] Please deliver, 170, cm, 04/21/19 16:03:00 EST, Height Start Date: 05/18/19 Stop Date: 08/16/19 Status: Ordered doxepin 25 mg oral capsule 3 capsule = 75 mg, By Mouth, Daily at bedtime, Please fill today, # 90 capsule, 5 Refills, Maintenance, 05/18/19 11:13:00 EST, Capsule, [facility] 170, cm, 04/21/19 16:03:00 EST, Height Start Date: 05/18/19 Stop Date: 11/14/19 Status: Ordered ferrous gluconate 324 mg (37.5 mg elemental iron) oral tablet 1 tablet = 324 mg, By Mouth, 2 times a day, # 60 tablet, 1 Refills, Maintenance, 05/20/19 13:38:00 EST, Tablet, [facility]/pharmacy #[id number], 170, cm, 04/21/19 16:03:00 EST, Height [...] 2 Refills, Maintenance, 05/18/19 11:15:00 EST, Tablet, [facility], Please deliver, 1 tablet By Mouth Daily,x30 [...] 05/18/19 11:13:00 EST, Route to Pharmacy Electronically, [facility], Please fill today, 170, cm, 04/21/19 16:03:00 [...] 04/21/19 16:44:15 EST, Route to Pharmacy Electronically, [id number], [facility], 170, cm, 04/21/19 16:03:00 EST, Height Start Date: 04/21/19 Status: Ordered Vitamin D 80412 iu oral capsule 50,000 International_Units, 1, capsule, By Mouth, Every week, # 5 capsule, Refills 2, Tot. Refills 2, Maintenance, 05/18/19 11:14:00 EST, Route to Pharmacy Electronically, [facility],170, cm, 04/21/19 16:03:00 EST, Height Start Date: [...]
--- OUTSIDE RECORDS SUMMARY | 2023-11-18 06:40 | XMS_ITS | Continuity of Care Document ---
Author Organization [facility] Address [address] [place] [address]- Care Team Providers Care Household Assistant Name Role Phone Maisha Lin DO Primary Care Physician Encounter [facility] [place] Date(s): 09/21/19 - 09/28/19 [facility] [address] [place] [address]- Attending Physician: Timmy MERCER, Daphney Heard Admitting Physician: Cornelius REDDY, Shala Kuo Allergies, Adverse Reactions, Alerts Substance Reaction Severity [...] GIVEN DATED: 11/18/11 8Admin Note: VIS GIVEN ITALIAN 2011-04 9Admin Note: vis given vis date [...] 2 Refills, Maintenance, 05/18/19 11:15:00 EST, Tablet, [facility] Please deliver, 170, cm, 04/21/19 16:03:00 EST, Height Start Date: 05/18/19 Stop Date: 08/16/19 Status: Ordered doxepin 25 mg oral capsule 3 capsule = 75 mg, By Mouth, Daily at bedtime, Please fill today, # 90 capsule, 5 Refills, Maintenance, 05/18/19 11:13:00 EST, Capsule, [facility] 170, cm, 04/21/19 16:03:00 EST, Height Start Date: 05/18/19 Stop Date: 11/14/19 Status: Ordered ferrous gluconate 324 mg (37.5 mg elemental iron) oral tablet 1 tablet = 324 mg, By Mouth, 2 times a day, # 60 tablet, 1 Refills, Maintenance, 05/20/19 13:38:00 EST, Tablet, [facility]/pharmacy #[id number], 170, cm, 04/21/19 16:03:00 EST, Height [...] 2 Refills, Maintenance, 05/18/19 11:15:00 EST, Tablet, [facility], Please deliver, 1 tablet By Mouth [...] 05/18/19 11:13:00 EST, Route to Pharmacy Electronically, [facility], Please fill today, 170, cm, 04/21/19 [...] 04/21/19 16:44:15 EST, Route to Pharmacy Electronically, [id number], [facility], 170, cm, 04/21/19 16:03:00 EST, Height Start Date: 04/21/19 Status: Ordered Vitamin D 05206 iu oral capsule 50,000 International_Units, 1, capsule, By Mouth, Every week, # 5 capsule, Refills 2, Tot. Refills 2, Maintenance, 05/18/19 11:14:00 EST, Route to Pharmacy Electronically, [facility],170, cm, 04/21/19 16:03:00 EST, Height Start [...]
--- OUTSIDE RECORDS SUMMARY | 2023-11-18 06:40 | XMS_ITS | Continuity of Care Document ---
Author Organization [facility] Address [address] [place] [address]- Care Team Providers Care Shredded Filler Cigar Maker Machine Name Role Phone Cornelius REDDY, Shala Kuo Primary Care Physician [phone] Encounter [facility] Date(s): 11/05/21 - 12/05/[address] [address]- Attending Physician: Admtr, Ar8 Allergies, Adverse Reactions, Alerts [...] GIVEN DATED: 11/18/11 8Admin Note: VIS GIVEN OCCITAN 2011-04 9Admin Note: vis given vis date 12/26/2009 10Admin Note: Prevnar 11Admin Note: VIS GIVEN VIS DATE 03/26 Medications Blood Pressure Monitor See Instructions, # 1 [...] mL, 11 Refills, Maintenance, 02/02/21 17:36:00 EDT, [facility], replaced tablets by suspension, 167.6, cm, 02/02/21 13:00:00 EDT, Height, 69.3, kg, 02/02/21 13:00... Start Date: 02/02/21 Stop Date: 01/04/22 Status: Ordered Colace sodium 100 mg oral capsule 100 mg, 1, capsule, By Mouth, 2 times a day, PRN, # 60 capsule, Refills 11, Tot. Refills 11, Maintenance, for constipation, 02/08/21 20:01:00 EDT, Route to Pharmacy Electronically, [facility]/pharmacy #[id number], Partial fill upon patient request if the prescript... Start Date: 02/08/21 Status: Ordered darunavir 800 mg oral tablet 1 tablet = 800 mg, By Mouth, Daily, with food, please get labs before refills, # 90 tablet, 3 Refills, Maintenance, 11/28/21 12:11:00 EDT, Tablet, [facility], Partial fill upon patient request if the prescription is for a schedule II... Start Date: 11/28/21 Status: Ordered ferrous sulfate 325 mg oral enteric coated tablet 325 mg, 1, tablet, By Mouth, Daily, # 30 tablet, Refills 11, Tot. Refills 11, Maintenance, 03/02/2112:59:00 EDT, Route to Pharmacy Electronically, [facility], Partial fill upon patient request if the prescription is for a schedule II... Start Date: 03/02/21 Status: Ordered Genvoya oral tablet 1 tablet, By Mouth, Daily, with food, please get labs before refills, # 90 tablet, 3 Refills, Maintenance, 11/28/21 12:10:00 EDT, Tablet, [facility], Partial fill upon patient request if the prescription is for a schedule II opioid Start Date: 11/28/21 Status: Ordered hydrochlorothiazide-lisinopril 25 mg-20 mg oral tablet 1 tablet, By Mouth, Daily, please get labs before refills, # 30 tablet, 0 Refills, Maintenance, 10/25/21 9:38:00 EDT, Tablet, [facility], d/c lisinopril 40 mg - change to combo med, 1 tablet By Mouth Daily,Instr:please get labs before... Start Date: 10/25/21 Status: Ordered metroNIDAZOLE 0.75% topical gel 1 applicator, Vaginally, Daily, # 70 Gm, 0 Refills, Maintenance, 11/20/21 14:08:00 EDT, [facility], Partial fill upon patient request if the prescription is for a schedule II opioid drug., 1 applicator Vaginally Daily,x5 days, 167.6,... Start Date: 11/20/21 Stop Date: 11/25/21 Status: Ordered MiraLax oral powder for reconstitution = 17 Gm, By Mouth, Daily, PRN Constipation, dissolve in water before taking, # 527 Gm, 11 Refills, Maintenance, 02/08/21 20:01:00 EDT, REC Powder, [facility]/pharmacy #[id number], Partial fill upon patient request if the prescription is for a schedule II opioid Start Date: 02/08/21 Status: Ordered mirtazapine 15 mg oral tablet 1 tablet = 15 mg, By Mouth, Daily at bedtime, please get labs before refills, # 30 tablet, 4 Refills, Maintenance, 10/25/21 9:38:00 EDT, Tablet, [facility], increase dose, 167.6, cm,02/19/21 16:01:00 EDT, Height, 69.3, kg, 02/02/21 1... Start Date: 10/25/21 Stop Date: 03/24/22 Status: Ordered [facility] Rx Refills 0, Maintenance, Calcium/Mg/ [...] 10:56:00 EDT, 12/19/20 10:56:00 EDT, REC Powder, [facility]/pharmacy #[id number], Partial fill upon patient request... Start Date: 12/19/20 Stop Date: 12/16/21 Status: Ordered Thera oral tablet 1 tablet, By Mouth, Daily, # 30 tablet, 11 Refills, Maintenance, 03/09/21 16:13:00 EDT, Tablet, [facility], Partial fill upon [...] 02/02/21 14:41:00 EDT, Route to Pharmacy Electronically, [facility]/pharmacy #[id number], Partial fill upon patient request if the [...]
--- OUTSIDE RECORDS SUMMARY | 2023-11-18 06:40 | XMS_ITS | Continuity of Care Document ---
Author Organization [facility] Address [address] [place] [address]- Care Team Providers Care Glass Blowing Instructor Name Role Phone Shala Shields MD Primary Care Physician [place] [facility] [place] 01/16[place]23 - 02/15/23 [facility] [address] [place], [place] [address] Attending Physician: AdmJairo he Admitting Physician: AdmtrJairo Referring Physician: Admtr, Adonis8 Allergies, Adverse Reactions, Alerts Substance Reaction Severity [...] 23-valent vaccine 04/27/13 Given SARS-CoV-2 (COVID-19) mRNA BNT-162k3 vac 03/08/21 Given SARS-CoV-2 (COVID-19) mRNA BNT-162b2 vac 02/15/21 Given pneumococcal 13-valent vaccine 10 05/21/17 Given tetanus/diphtheria/pertussis, acel(Tdap) 11 03/20/10 Given 1Admin Note: Influenza vaccine 2Admin Note: Influenza vaccine 3Admin Note: Influenza vaccine 4Admin Note: Influenza vaccine 5Admin Note: Influenza vaccine 6Admin Note: vis given 12/11/2012 7Admin Note: VIS GIVEN DATED: 11/18/11 8Admin Note: VIS GIVEN KOREAN 2011-04 9Admin Note: vis given vis date 12/26/2009 10Admin Note: Prevnar 11Admin Note: VIS GIVEN VIS DATE 03/26 Medications acetaminophen 325 mg oral tablet 650 mg, 2, tablet, By Mouth, 3 times a day, PRN, # 540 tablet, Refills 3, Tot. Refills 3, Maintenance, as needed for fever, 09/18/22 15:52:00 EDT, [facility] Pharm[facility]ically, [facility], Partial fill upon patient request if the... Start Date: 09/18/22 Status: Ordered Bactrim 400 mg-80 mg oral tablet 1 tablet, By Mouth, Daily, for 30 days, # 30 tablet, 2 Refills, Acute 03/12/23 9:28:00 EDT, 12/12/22 9:28:00 EDT, Tablet[facility] fill upon patient request if the prescription is for a schedule II opioid drug., 1 tablet By... Start Date: 12/12/22 Stop Date: 03/12/23 Status: Ordered Blood Pressure Monitor Blood Pressure [...] mL, 11 Refills, Maintenance, 09/18/22 15:52:00 EDT, [facility], replaced tablets by suspension, 167.6, cm, 07/04/22 16:00:00 EST, Height, 69.3, kg, 02/02/21 13:00... Start Date: 09/18/22 Stop Date: 08/20/23 Status: Ordered Colace sodium 100 mg oral capsule 100 mg, 1, capsule, By Mouth, 2 times a day, PRN, # 60 capsule, Refills 11, Tot. Refills 11, Maintenance, for constipation, 09/18/22 15:52:00 EDT, Route to Pharmacy Electronically, [facility], Partial fill upon patient request if the... Start Date: 09/18/22 Status: Ordered darunavir 800 mg oral tablet 1 tablet = 800 mg, By Mouth, Daily, with food, please get labs before refills, # 90 tablet, 3 Refills, Maintenance, 11/25/22 9:47:00 EDT, Tablet, [facility], Partial fill upon patient request if the prescription is for a schedule II o... Start Date: 11/25/22 Status: Ordered diclofenac 1% topical gel 1 application, Topically, 4 times a day, # 100 Gm, 11 Refills, Maintenance, 09/18/22 15:52:00 EDT, Gel, [facility], Partial fill upon patient request if the prescription is for a schedule II opioid drug., 167.6, cm, 07/04/22 16:00:00... Start Date: 09/18/22 Status: Ordered ferrous sulfate 325 mg oral enteric coated tablet 325 mg, 1, tablet, By Mouth, Every other day, # 45 tablet, Refills 3, Tot. Refills 3, Maintenance, 09/18/22 15:52:00 EDT, Route to Pharmacy Electronically, [facility], Partial fill upon patient request if the prescription is for a hubert... Start Date: 09/18/22 Status: Ordered Genvoya oral tablet 1 tablet, By Mouth, Daily, with food, please get labs before refills, # 90 tablet, 3 Refills, Maintenance, 11/25/22 10:45:00 EDT, Tablet, [facility], Partial fill upon patient request if the prescription is for a schedule II opioid dr... Start Date: 11/25/22 Status: Ordered hydrochlorothiazide-olmesartan 25 mg-40 mg oral tablet 1 tablet, By Mouth, Daily, # 90 tablet, 3 Refills, Maintenance, 09/18/22 15:50:00 EDT, Tablet, [facility], d/c HCTZ/lisinopril, 1 tablet By Mouth Daily, 167.6, cm, 07/04/22 16:00:00 EST, Height, 69.3, kg, 02/02/21 13:00:00 EDT, Dry We... Start Date: 09/18/22 Status: Ordered MetroGel 1% topical gel 1 application, Topically, Daily, PRN facial rash, # 60 Gm, 11 Refills, Maintenance, 12/23/22 8:40:00 EDT, Gel, [facility], Partial fill upon patient request if the prescription is for a schedule II opioid drug., 1 application Topicall... Start Date: 12/23/22 Status: Ordered MiraLax oral powder for reconstitution = 17 Gm, By Mouth, Daily, PRN Constipation, dissolve in water before taking, # 527 Gm, 11 Refills, Maintenance, 09/18/22 15:52:00 EDT, REC Powder, [facility], Partial fill upon patient request if the prescription is for a schedule II... Start Date: 09/18/22 Status: Ordered Misc Rx Refills 0, Maintenance, Calcium/Mg/ Zinc 1 tablet daily, 01/23/21 17:47:00 EDT, Supply Start Date: 01/23/21 Status: Ordered pantoprazole 40 mg oral delayed release tablet = 40 mg, By Mouth, 2 times a day, # 180 tablet, 3 Refills, Maintenance, 09/18/22 15:52:00 EDT, EC Tablet, please change q d script to BID, 167.6, cm, 07/04/22 16:00:00 EST, Height, 69.3, kg, 02/02/2113:00:00 EDT, Dry Weight Start Date: 09/18/22 Stop Date: 09/13/23 Status: Ordered Shingrix intramuscular injection = 0.5 mL, Intramuscular, Once, repeat dose in 2 to 6 months, # 2 each, 0 Refills, Soft Stop, 12/23/22 8:46:00 EDT, Powder, [facility], Partial fill upon patient request if the prescription is for a schedule II opioid drug., 0.5 mL Int... Start Date: 12/23/22 Status: Ordered Thera oral tablet 1 tablet, By Mouth, Daily, # 90 tablet, 3 Refills, Maintenance, 09/18/22 15:52:00 EDT, Tablet, [facility], Partial fill upon patient request if the prescription is for a schedule II opioid drug., 1 tablet By Mouth Daily, 167.6, cm, 02... Start Date: 09/18/22 Status: Ordered Problem List Condition Confirmation Course [...] pubis OA, left Confirmed Active *Catalina Diaz Instrument Operator-[facility] [phone] Confirmed Active Mild recurrent major depression Confirmed [...] Team Personnel Name: Jaky Nicole RN Position: [facility] RN Member Role: Primary Care Nurse Name: Rhea Heard Position: [facility] RN Member Role: Primary Care Nurse Name: Shala Shields MD Position: [facility] Physician - Primary Care Member Role: PCP Address: Address: [address] [place] [id number] Name: Kassi Wang RN Position: [facility] RN Member Role: Primary Care Nurse Name: Isabell David RN Position: [facility] SN RN Member Role: Primary Care Nurse Name: Tamy Lamb RN Position: [facility] RN Member Role: Primary Care Nurse Care Team Related Persons Name: REYES OSHEA Address: home [address] [address] Name: SHANIKA ZAVALA Address: home [address] [place] [address]
--- OUTSIDE RECORDS SUMMARY | 2023-11-18 06:40 | XMS_ITS | Continuity of Care Document ---
Author Organization [facility] Address [address], [address] [place] [address]- Care Team Providers Care Manager Regional Sales Name Role Phone Maisha Lin DO Primary Care Physician [facility] Date[facility]s): 04[facility]12/20 - 05/12/20 [facility] [address], [address] [place], [place] [address] Allergies, Adverse Reactions, Alerts Substance Reaction [...] GIVEN DATED: 11/18/11 8Admin Note: VIS GIVEN TURKISH 2011-04 9Admin Note: vis given vis date 12/26/2009 10Admin Note: Prevnar 11Admin Note: VIS GIVEN VIS DATE 03/26 Medications Bactrim DS 800 mg-160 mg oral tablet 1 tablet, By Mouth, Daily, for 30 days, # 30 tablet, 6 Refills, Acute 10/12/20 9:47:00 EDT, 03/16/20 9:47:00 EDT, Tablet, [facility], 1 tablet By Mouth Daily,x30 days, 168, cm, 03/16/20 8:08:00 EDT, Height, 71.6, kg, 02/11/20 4:57:00... Start Date: 03/16/20 Stop Date: 10/12/20 Status: Ordered darunavir 800 mg oral tablet 1 tablet = 800 mg, By Mouth, Daily, # 30 tablet, 2 Refills, Maintenance, 03/16/20 9:01:00 EDT, Tablet, [facility], 168, cm, 03/16/20 8:08:00 EDT, Height, 71.6, kg, 02/11/20 4:57:00 EDT, Dry Weight Start Date: 03/16/20 Stop Date: 06/14/20 Status: Ordered docusate sodium 100 mg oral capsule 100 mg, 1, capsule, By Mouth, 2 times a day, # 28 capsule, Refills 3, Tot. Refills 3, Maintenance, 03/16/20 9:41:00 EDT, Route to Pharmacy Electronically, [facility], 168, cm, 03/16/20 8:08:00 EDT, Height, 71.6, kg, 02/11/20 4:57:00 E... Start Date: 03/16/20 Stop Date: 05/11/20 Status: Ordered doxepin 25 mg oral capsule 3 capsule = 75 mg, By Mouth, Daily at bedtime, Please fill today, # 90 capsule, 5 Refills, Maintenance, 03/16/20 9:49:00 EDT, Capsule, [facility], 168, cm, 03/16/20 8:08:00 EDT, Height, 71.6, kg, 02/11/20 4:57:00 EDT, Dry Weight Start Date: 03/16/20 Stop Date: 09/12/20 Status: Ordered ferrous sulfate 325 mg oral enteric coated tablet 325 mg, 1, tablet, By Mouth, Daily, # 30 tablet, Refills 5, Tot. Refills 5, Maintenance, 04/24/20 11:06:00 EST, [id number] Partial fill upon patient requestif the prescription is for a schedule II opioid sudhir... Start Date: 04/24/20 Stop Date: 10/21/20 Status: Ordered Genvoya oral tablet 1 tablet, By Mouth, Daily, with food, # 30 tablet, 2 Refills, Maintenance, 03/16/20 9:00:00 EDT, Tablet, [facility], 1 tablet By Mouth Daily,x30 days,Instr:with food, 168, cm, 03/16/20 8:08:00 EDT, Height, 71.6, kg, 02/11/20 4:57:00 E... Start Date: 03/16/20 Stop Date: 06/14/20 Status: Ordered influenza virus vaccine, inactivated adjuvanted preservative-free quadrivalent intramuscular susp 0.5 mL, Intramuscular, Once, # 0.5 mL, 0 Refills, Soft Stop, 03/16/20 8:57:00 EDT, Suspension, [facility] 0.5 mL Intramuscular Once, 168, cm, 03/16/20 8:08:00 EDT, Height, 71.6, kg, 02/11/20 4:57:00 EDT, Dry Weight Start Date: 03/16/20 Status: Ordered lisinopril 20 mg oral tablet 20 mg, 1, tablet, By Mouth, Daily, # 30 tablet, Refills 5, Tot. Refills 5, Maintenance, 03/16/20 9:46:00 EDT, Route to Pharmacy Electronically, [facility], Please buble pack, 168, cm, 03/16/20 [...]
--- OUTSIDE RECORDS SUMMARY | 2023-11-18 06:40 | XMS_ITS | Continuity of Care Document ---
Author Organization [facility] Address [address] [place] [address]- Care Team Providers Care Residential Monitor Name Role Phone Cornelius REDDY, Shala Kuo Primary Care Physician [facility]23 - 09/10/23 [facility] [address], [place] [phone] Allergies, Adverse Reactions, Alerts Substance Reaction Severity [...] GIVEN DATED: 11/18/11 8Admin Note: VIS GIVEN SLOVAK 2011-04 9Admin Note: vis given vis date 12/26/2009 10Admin Note: Prevnar 11Admin Note: VIS GIVEN VIS DATE 03/26 Medications acetaminophen 325 mg oral tablet 650 mg, 2, tablet, By Mouth, 3 times a day, PRN, # 540 tablet, Refills 3, Tot. Refills 3, Maintenance, as needed for fever, 02/20/23 13:39:00 EDT, Route to Pharmacy Electronically, [facility], Partial fill upon patient request if the prescri... Start Date: 02/20/23 Status: Ordered Blood Pressure Monitor See Instructions, [...] 02/20/23 13:39:00 EDT, Route to Pharmacy Electronically, [facility], Partial fill upon patient request if the prescri... Start Date: 02/20/23 Status: Ordered darunavir 800 mg oral tablet 1 tablet = 800 mg, By Mouth, Daily, with food, please get labs before refills; BUBBLE PACK, # 90 tablet, 1 Refills, Maintenance, 04/25/23 11:55:00 EST, Tablet, [facility], Partial fill upon patient request if the prescription is for a... Start Date: 04/25/23 Status: Ordered diclofenac 1% topical gel 1 application, Topically, 4 times a day, # 100 Gm, 11 Refills, Maintenance, 09/18/22 15:52:00 EDT, Gel, [facility], Partial fill upon patient request if the prescription is for a schedule II opioid drug., 167.6, cm, 07/04/22 16:00:00... Start Date: 09/18/22 Status: Ordered duloxetine 60 mg oral enteric coated capsule 1 capsule = 60 mg, By Mouth, Daily, start with duloxetine 30mg daily x 2 weeks then duloxetine 60mgdaily;, # 30 capsule, 4 Refills, Maintenance, 07/03/23 19:03:00 EST, EC [facility]apsule[facility] fill upon patient request if the... Start Date: 07/03/23 Status: Ordered ferrous sulfate 325 mg oral enteric coated tablet 325 mg, 1, tablet, By Mouth, Daily, # 90 tablet, Refills 3, Tot. Refills 3, Maintenance, 08/26/23 9:38:00 EDT, Route to Pharmacy Electronically, [facility], Partial fill upon patientrequest if the prescription is for a schedule II op... Start Date: 08/26/23 Status: Ordered gabapentin 100 mg oral capsule 100 mg, 1, capsule, By Mouth, Daily at bedtime, PRN, # 30 capsule, Refills 4, Tot. Refills 4, Maintenance, Anxiety, 08/05/23 10:19:00 EDT, Route to Pharmacy Electronically, [facility], Partial fill upon patient request if the prescrip... Start Date: 08/05/23 Stop Date: 08/12/23 Status: Ordered Genvoya oral tablet 1 tablet, By Mouth, Daily, with food, please get labs before refills; BUBBLE PACK, # 90 tablet, 1 Refills, Maintenance, 04/25/23 11:55:00 EST, Tablet, [facility], Partial fill upon patient request if the prescription is for a schedule... Start Date: 04/25/23 Status: Ordered hydrochlorothiazide-olmesartan 25 mg-40 mg oral tablet 0.5 tablet, By Mouth, Daily, # 15 tablet, 4 Refills, Maintenance, 08/07/23 15:23:00 EDT, Tablet, [facility]/pharmacy #[id number], decrease dose, 0.5 tablet By Mouth Daily, 167.6, cm, 08/05/23 9:50:00 EDT, Height Start Date: 08/07/23 Status: Ordered Lidoderm 5% film 2 patch, Topically, Daily, remove patches after 12 hours; 2 patches to pain areas; can cut patches in half; do not excede 2 patches., # 60 patch, 4 Refills, Maintenance, 03/06/23 15:42:00 EDT, [facility]/pharmacy #[id number], Partial fill upon patient request if t... Start Date: 03/06/23 Stop Date: 08/03/23 Status: Ordered meloxicam 7.5 mg oral tablet 1 tablet = 7.5 mg, By Mouth, Daily, [place] with acetaminophen, # 14 tablet, 0 Refills, Maintenance, 08/25/23 16:16:00 EDT, Tablet, [facility], Partial fill upon patient request if theprescription is for a schedule II opioid drug., 167... Start Date: 08/25/23 Stop Date: 09/08/23 Status: Ordered [facility] Rx Refills 0, Maintenance, Calcium/Mg/ Zinc 1 tablet daily, 01/23/21 17:47:00 EDT, Supply Start Date: 01/23/21 Status: Ordered naltrexone 50 mg oral tablet 1 tablet = 50 mg, By Mouth, Daily, # 30 tablet, 4 Refills, Maintenance, 07/28/23 16:46:00 EDT, Tablet, [facility]/pharmacy #[id number], Partial fill upon patient request [...] Refills, Maintenance, 07/03/23 18:52:00 EST, REC Powder, [facility], Partial fill upon patient request if the prescription is for a schedule II opioid drug., 17 Gm... Start Date: 07/03/23 Stop Date: 10/01/23 Status: Ordered Thera oral tablet 1 tablet, By Mouth, Daily, # 90 tablet, 3 Refills, Maintenance, 08/26/23 9:38:00 EDT, Tablet, [facility], Partial fill upon patient request if the prescription is for a schedule II opioid drug., 1 tablet By Mouth Daily, 167.6, cm, ... Start Date: 08/26/23 Status: Ordered traMADol 50 mg oral tablet 1 tablet = 50 mg, By Mouth, 4 times a day, PRN as needed for pain, for 28 days, MassPat checked. Chronic pain, # 112 tablet, 0 Refills, Acute 10/08/23 15:45:00 EDT, 09/10/23 15:45:00 EDT, Tablet, [facility], Partial fill upon patient... Start Date: 09/10/23 Stop Date: 10/08/23 Status: Ordered Vitamin D3 1000 intl units oral capsule 1 capsule = 25 mcg, By Mouth, Daily, # 90 capsule, 3 Refills, Maintenance, 07/03/23 19:05:00 EST, Capsule, [facility], Partial fill upon patient [...] pubis OA, left Confirmed Active *Catalina Diaz Medical Claims Manager-[facility] [phone] Confirmed Active Mild recurrent major depression Confirmed Active Rosacea Confirmed Active Urinary incontinence Confirmed Active Social History Social History Type Response Tobacco Use: Rolls weed in l eaf tabacco . Sex Patient Care team information Care Team Personnel Name: Jaky Nicole RN Position: [facility] RN Member Role: Primary Care Nurse Name: Rhea Brooks Position: [facility] RN Member Role: Primary Care Nurse Name: Shala Shields MD Position: [facility] Physician - Primary Care Member Role: PCP Address: Address: [address] [place] [id number] Name: Kassi Wang RN Position: [facility] RN Member Role: Primary Care Nurse Name: Isabell David RN Position: [facility] ERNESTO Office Staff Member Role: Primary Care Nurse Care Team Related Persons Name: REYES OSHEA Address: home [address] [address] Name: SHANIKA ZAVALA Address: home [address] [place] [address]
--- OUTSIDE RECORDS SUMMARY | 2023-11-18 06:40 | XMS_ITS | Continuity of Care Document ---
Author Organization [facility] Address [address] [place] [address]- Care Team Providers Care Roller Hand Name Role Phone Shala Shields MD Primary Care Physician [facility] 12[facility]21[facility]20 - 01/31/21 [facility] [address] [place], [place] [address] Attending Physician: Shala Shields MD Admitting Physician: [...] GIVEN DATED: 11/18/11 8Admin Note: VIS GIVEN ZIMBABWEAN 2011-04 9Admin Note: vis given vis date 12/26/2009 10Admin Note: Prevnar 11Admin Note: VIS GIVEN VIS DATE 03/26 Medications Bactrim DS 800 mg-160 mg oral tablet 1 tablet, By Mouth, Daily, # 30 tablet, 5 Refills, Maintenance, 01/25/21 10:04:00 EDT, Tablet, [facility], Partial fill upon patient request if the prescription is for a schedule II opioid drug., 1 tablet By Mouth Daily, 167.6, cm, 09... Start Date: 01/25/21 Status: Ordered Bactrim DS 800 mg-160 mg oral tablet 1 tablet, By Mouth, Every 24 hours, # 30 tablet, 5 Refills, Maintenance, 01/11/21 10:10:00 EDT, Tablet, [facility], Partial fill upon [...] 1,120 mL, 1 Refills, Maintenance,12/19/20 23:29:00 EDT, [facility]/pharmacy #[id number], replaced tablets by suspension, 166, cm, 12/19/20 9:44:00 EDT, Height, 66.9, kg, 12/12/20 19:05:00 EDT, Dry... Start Date: 12/19/20 Stop Date: 02/13/21 Status: Ordered darunavir 800 mg oral tablet 1 tablet = 800 mg, By Mouth, Daily, # 30 tablet, 5 Refills, Maintenance, 01/25/21 10:06:00 EDT, Tablet, [facility], Partial fill upon patient request if the prescription is for a schedule II opioid drug., 167.6, cm, 01/23/21 18:14:00... Start Date: 01/25/21 Status: Ordered ferrous sulfate 325 mg oral enteric coated tablet 325 mg, 1, tablet, By Mouth, Daily, # 30 tablet, Refills 1, Tot. Refills 1, Maintenance, 01/06/21 18:35:00 EDT, Route to Pharmacy Electronically, [facility], Partial fill upon patient request if the prescription is for a schedule II o... Start Date: 01/06/21 Status: Ordered Genvoya oral tablet 1 tablet, By Mouth, Daily, with food, # 30 tablet, 5 Refills, Maintenance, 01/25/21 9:51:00 EDT, Tablet, [facility], Partial fill upon patient request if the prescription is for a schedule II opioid drug., 1 tablet By Mouth Daily,Inst... Start Date: 01/25/21 Status: Ordered Genvoya oral tablet 1 tablet, By Mouth, 2 times a day, with food, # 30 tablet, 0 Refills, Maintenance, 01/11/21 10:09:00 EDT, Tablet, [facility], Partial fill upon patient request if the prescription isfor a schedule II opioid drug., 166, cm, 01/11/21 9... Start Date: 01/11/21 Status: Ordered lisinopril 10 mg oral tablet 10 mg, 1, tablet, By Mouth, Daily, # 30 tablet, Refills 1, Tot. Refills 1, Maintenance, 01/06/21 18:35:00 EDT, Route to Pharmacy Electronically, [facility], Partial fill upon patientrequest if the prescription is for a schedule II op... Start Date: 01/06/21 Stop Date: 02/05/21 Status: Ordered mirtazapine 15 mg oral tablet 0.5 tablet = 7.5 mg, By Mouth, Daily at bedtime, # 15 tablet, 4 Refills, Maintenance, 01/08/21 11:59:00 EDT, Tablet, [facility], Partial fill upon patient request if the prescriptionis for a schedule II opioid drug., 166, cm, ... Start Date: 01/08/21 Stop Date: 06/07/21 Status: Ordered Misc Rx Refills 0, Maintenance, [...] 10:56:00 EDT, 12/19/20 10:56:00 EDT, REC Powder, [facility]/pharmacy #[id number], Partial fill upon patient request... Start Date: 12/19/20 Stop Date: 12/16/21 Status: Ordered Problem List Condition Effective Dates [...]
--- OUTSIDE RECORDS SUMMARY | 2023-11-18 06:40 | XMS_ITS | Continuity of Care Document ---
Author Organization [facility] Address [address] [place] [address]- Care Team Providers Care Addressing Machine Operator Name Role Phone Maisha Lin DO Primary Care Physician [facility]): [facility]19 - 10/21/19 [facility] [address] [place] [address]- Attending Physician: Jairo Ochoa Admitting Physician: Jairo Ochoa Referring Physician: AdmtrJairo Allergies, Adverse Reactions, Alerts Substance Reaction Severity [...] GIVEN DATED: 11/18/11 8Admin Note: VIS GIVEN HAITIAN 2011-04 9Admin Note: vis given vis date [...] 2 Refills, Maintenance, 05/18/19 11:15:00 EST, Tablet, [facility] Please deliver, 170, cm, 04/21/19 16:03:00 EST, Height Start Date: 05/18/19 Stop Date: 08/16/19 Status: Ordered doxepin 25 mg oral capsule 3 capsule = 75 mg, By Mouth, Daily at bedtime, Please fill today, # 90 capsule, 5 Refills, Maintenance, 05/18/19 11:13:00 EST, Capsule, [facility] 170, cm, 04/21/19 16:03:00 EST, Height Start Date: 05/18/19 Stop Date: 11/14/19 Status: Ordered ferrous gluconate 324 mg (37.5 mg elemental iron) oral tablet 1 tablet = 324 mg, By Mouth, 2 times a day, # 60 tablet, 1 Refills, Maintenance, 05/20/19 13:38:00 EST, Tablet, [facility]/pharmacy #[id number], 170, cm, 04/21/19 16:03:00 EST, [...] 2 Refills, Maintenance, 05/18/19 11:15:00 EST, Tablet, [facility] [place] [facility], Please deliver, 1 tablet By Mouth [...] 05/18/19 11:13:00 EST, Route to Pharmacy Electronically, [facility] [place] [facility], Please fill today, 170, cm, 04/21/19 [...] 04/21/19 16:44:15 EST, Route to Pharmacy Electronically, [id number], [facility], 170, cm, 04/21/19 16:03:00 EST, Height Start Date: 04/21/19 Status: Ordered Vitamin D 67579 iu oral capsule 50,000 International_Units, 1, capsule, By Mouth, Every week, # 5 capsule, Refills 2, Tot. Refills 2, Maintenance, 05/18/19 11:14:00 EST, Route to Pharmacy Electronically, [facility],170, cm, 04/21/19 16:03:00 EST, Height Start [...]
--- OUTSIDE RECORDS SUMMARY | 2023-11-18 06:40 | XMS_ITS | Continuity of Care Document ---
Author Organization [facility] Address [address] [place] [address]- Care Team Providers Care Chief Underwriter Name Role Phone Cornelius REDDY, Shala Kuo Primary Care Physician [facility] 03[facility]23 - 04/05/23 [facility] [address] [place] [id number] Allergies, Adverse Reactions, Alerts Substance Reaction [...] GIVEN DATED: 11/18/11 8Admin Note: VIS GIVEN LITHUANIAN 2011-04 9Admin Note: vis given vis date 12/26/2009 10Admin Note: Prevnar 11Admin Note: VIS GIVEN VIS DATE 03/26 Medications acetaminophen 325 mg oral tablet 650 mg, 2, tablet, By Mouth, 3 times a day, PRN, # 540 tablet, Refills 3, Tot. Refills 3, Maintenance, as needed for fever, 02/20/23 13:39:00 EDT, Route to Pharmacy Electronically, [facility], Partial fill upon patient request if the prescri... Start Date: 02/20/23 Status: Ordered Bactrim 400 mg-80 mg oral tablet 1 tablet, By Mouth, Daily, BUBBLE PACK, # 90 tablet, 1 Refills, Maintenance, 02/20/23 13:37:00 EDT,Tablet, [facility], Partial fill upon patient request if [...] mL, 11 Refills, Maintenance, 09/18/22 15:52:00 EDT, [facility], replaced tablets by suspension, [...] 1 Refills, Maintenance, 02/20/23 13:39:00 EDT, Tablet, [facility], Partial fill uponpatient request if the prescription is for a schedu... Start Date: 02/20/23 Status: Ordered diclofenac 1% topical gel 1 application, Topically, 4 times a day, # 100 Gm, 11 Refills, Maintenance, 09/18/22 15:52:00 EDT, Gel, [facility], Partial fill upon patient request if the prescription is for a schedule II opioid drug., 167.6, cm, 07/04/22 16:00:00... Start Date: 09/18/22 Status: Ordered duloxetine 30 mg oral enteric coated capsule 1 capsule = 30 mg, By Mouth, Daily, start with duloxetine 30mg daily x 2 weeks then duloxetine 60mgdaily; BUBBLE PACK, # 14 capsule, 0 Refills, Maintenance, 02/20/23 13:46:00 EDT, [facility], Partial fill upon patient request if the prescri... Start Date: 02/20/23 Stop Date: 03/06/23 Status: Ordered duloxetine 60 mg oral enteric coated capsule 1 capsule = 60 mg, By Mouth, Daily, start with duloxetine 30mg daily x 2 weeks then duloxetine 60mgdaily; BUBBLE PACK, # 30 capsule, 4 Refills, Maintenance, 02/20/23 13:46:00 EDT, EC Capsule, [facility], Partial fill upon patient request if... Start Date: 02/20/23 Status: Ordered ferrous sulfate 325 mg oral enteric coated tablet 325 mg, 1, tablet, By Mouth, Every other day, BUBBLE PACK, # 45 tablet, Refills 3, Tot. Refills 3, Maintenance, 02/20/23 13:37:00 EDT, Route to Pharmacy Electronically, [facility], Partial fill upon patient request if the prescription is for... Start Date: 02/20/23 Status: Ordered Genvoya oral tablet 1 tablet, By Mouth, Daily, with food, please get labs before refills; BUBBLE PACK, # 90 tablet, 1 Refills, Maintenance, 02/20/23 13:39:00 EDT, Tablet, [facility], Partial fill upon patient request if the prescription is for a schedule II opi... Start Date: 02/20/23 Status: Ordered hydrochlorothiazide-olmesartan 25 mg-40 mg oral tablet 1 tablet, By Mouth, Daily, BUBBLE PACK, # 90 tablet, 3 Refills, Maintenance, 02/20/23 13:37:00 EDT,Tablet, [facility], d/c HCTZ/lisinopril, 1 tablet By Mouth Daily,Instr:BUBBLE ELANA, 167.6, cm, 12/23/22 8:35:00 EDT, Height Start Date: 02/20/23 Status: Ordered Lidoderm 5% film 2 patch, Topically, Daily, remove patches after 12 hours; 2 patches to pain areas; can cut patches in half; do not excede 2 patches., # 60 patch, 4 Refills, Maintenance, 03/06/23 15:42:00 EDT, [facility]/pharmacy #[id number], Partial fill upon patient request if t... Start Date: 03/06/23 Stop Date: 08/03/23 Status: Ordered MetroGel 1% topical gel 1 application, Topically, Daily, PRN facial rash, # 60 Gm, 11 Refills, Maintenance, 12/23/22 8:40:00 EDT, Gel, [facility], Partial fill upon patient request if the prescription is for a schedule II opioid drug., 1 application Topicall... Start Date: 12/23/22 Status: Ordered MiraLax oral powder for reconstitution = 17 Gm, By Mouth, Daily, PRN Constipation, dissolve in water before taking, # 527 Gm, 11 Refills, Maintenance, 02/20/23 13:39:00 EDT, REC Powder, [facility], Partial fill upon patient [...] Refills, Soft Stop, 12/23/22 8:46:00 EDT, Powder, [facility], Partial fill upon patient request if the prescription is for a schedule II opioid drug., 0.5 mL Int... Start Date: 12/23/22 Status: Ordered Thera oral tablet 1 tablet, By Mouth, Daily, BUBBLE PACK, # 90 tablet, 3 Refills, Maintenance, 02/20/23 13:37:00 EDT,Tablet, [facility], Partial fill upon patient request if the prescription is for a schedule II opioid drug., 1 tablet By Mouth Daily,Instr:BU... Start Date: 02/20/23 Status: Ordered tiZANidine 4 mg oral capsule 1 capsule = 4 mg, By Mouth, 3 times a day, # 21 capsule, 0 Refills, Maintenance, 03/06/23 15:41:00 EDT, Capsule, [facility]/pharmacy #[id number], Partial fill upon patient request if the [...] pubis OA, left Confirmed Active *Catalina Diaz Instructor Programmable Controllers-[facility] [phone] Confirmed Active Mild recurrent major depression Confirmed [...] Team Personnel Name: Jaky Nicole RN Position: [facility] RN Member Role: Primary Care Nurse Name: Rhea Heard Position: S RN Member Role: Primary Care Nurse Name: Shala Shields MD Position: [facility] Physician - Primary Care Member Role: PCP Address: Address: [address] [place] [address] [place] [address]- Name: Kassi Wang RN Position: S RN Member Role: Primary Care Nurse Name: Isabell David RN Position: [facility] SN RN Member Role: Primary Care Nurse Care Team Related Persons Name: OSHEA, REYES Address: [address] [place] [id number] Name: SHANIKA ZAVALA Address: home [address] [place] [address]
--- OUTSIDE RECORDS SUMMARY | 2023-11-18 06:40 | XMS_ITS | Continuity of Care Document ---
Author Organization [facility] Address [address] [place] [address]- Care Team Providers Care Electrocardiograph Technician Name Role Phone Cornelius REDDY, Shala Kuo Primary Care Physician [facility]): [facility] - 11/23/22 [facility] [address] [place] [id number] Attending Physician: AdmJairo he Admitting Physician: Admtr, Jairo Referring Physician: Admtr, [id number] Allergies, Adverse Reactions, Alerts Substance Reaction Severity Status azithromycin 1 Persistent Mild Active rifabutin Rash Persistent Moderate Active amLODIPine 2 Active 1Rash 2Had Lower extremity ankle swelling with 10mg. Immunizations Given and Recorded Vaccine Date Status Refusal Reason SARS-CoV-2 (COVID-19) [id number] vaccine 04/04/22 G iven influenza virus vaccine, [...] GIVEN DATED: 11/18/11 8Admin Note: VIS GIVEN SLOVENIAN 2011-04 9Admin Note: vis given vis date 12/26/2009 10Admin Note: Prevnar 11Admin Note: VIS GIVEN VIS DATE 03/26 Medications acetaminophen 325 mg oral tablet 650 mg, 2, tablet, By Mouth, 3 times a day, PRN, # 540 tablet, Refills 3, Tot. Refills 3, Maintenance, as needed for fever, 09/18/22 15:52:00 EDT, [facility], Partial fill upon patient request if the... Start Date: 09/18/22 Status: Ordered Blood Pressure Monitor Blood Pressure [...] mL, 11 Refills, Maintenance, 09/18/22 15:52:00 EDT, [facility], replaced tablets by suspension, 167.6, cm, 07/04/22 16:00:00 EST, Height, 69.3, kg, 02/02/21 13:00... Start Date: 09/18/22 Stop Date: 08/20/23 Status: Ordered Colace sodium 100 mg oral capsule 100 mg, 1, capsule, By Mouth, 2 times a day, PRN, # 60 capsule, Refills 11, Tot. Refills 11, Maintenance, for constipation, 09/18/22 15:52:00 EDT, [facility], [facility], Partial fill upon patient request if the... Start Date: 09/18/22 Status: Ordered darunavir 800 mg oral tablet 1 tablet = 800 mg, By Mouth, Daily, with food, please get labs before refills, # 90 tablet, 3 Refills, Maintenance, 11/28/21 12:11:00 EDT, Tablet, [facility], Partial fill upon patient request if the prescription is for a schedule II... Start Date: 11/28/21 Status: Ordered diclofenac 1% topical gel 1 application, Topically, 4 times a day, # 100 Gm, 11 Refills, Maintenance, 09/18/22 15:52:00 EDT, Gel, [facility], Partial fill upon patient request if the prescription is for a schedule II opioid drug., 167.6, cm, 07/04/22 16:00:00... Start Date: 09/18/22 Status: Ordered duloxetine 60 mg oral enteric coated capsule 1 capsule = 60 mg, By Mouth, Daily, # 90 capsule, 3 Refills, Maintenance, 09/18/22 15:52:00 EDT, ECCapsule, [facility], Partial fill upon patient request if the prescription is for a schedule II opioid drug., 167.6, cm, 07/04/22 16:0... Start Date: 09/18/22 Status: Ordered ferrous sulfate 325 mg oral enteric coated tablet 325 mg, 1, tablet, By Mouth, Every other day, # 45 tablet, Refills 3, Tot. Refills 3, Maintenance, 09/18/22 15:52:00 EDT, Route to Pharmacy Electronically, [facility], Partial fill upon patient request if the prescription is for a hubert... Start Date: 09/18/22 Status: Ordered Genvoya oral tablet 1 tablet, By Mouth, Daily, with food, please get labs before refills, # 90 tablet, 3 Refills, Maintenance, 11/28/21 12:10:00 EDT, Tablet, [facility], Partial fill upon patient request if the prescription is for a schedule II opioid dr... Start Date: 11/28/21 Status: Ordered hydrochlorothiazide-olmesartan 25 mg-40 mg oral tablet 1 tablet, By Mouth, Daily, # 90 tablet, 3 Refills, Maintenance, 09/18/22 15:50:00 EDT, Tablet, [facility], d/c HCTZ/lisinopril, 1 tablet By Mouth Daily, 167.6, cm, 07/04/22 16:00:00 EST, Height, 69.3, kg, 02/02/21 13:00:00 EDT, Dry We... Start Date: 09/18/22 Status: Ordered MiraLax oral powder for reconstitution = 17 Gm, By Mouth, Daily, PRN Constipation, dissolve in water before taking, # 527 Gm, 11 Refills, Maintenance, 09/18/22 15:52:00 EDT, REC Powder, [facility], Partial fill upon patient request if the prescription is for a schedule II... Start Date: 09/18/22 Status: Ordered mirtazapine 15 mg oral tablet 1 tablet = 15 mg, By Mouth, Daily at bedtime, please get labs before refills, # 90 tablet, 3 Refills, Maintenance, 09/18/22 15:52:00 EDT, Tablet, [facility], increase dose, 167.6, cm, 07/04/22 16:00:00 EST, Height, 69.3, kg, 02/02/21... Start Date: 09/18/22 Stop Date: 09/13/23 Status: Ordered Misc Rx Refills 0, Maintenance, [...] Refills, Soft Stop, 06/06/22 10:12:00 EST, Powder, [facility] Partial fill upon patient request if the prescription is for a schedule II opioid drug., 0.5 mL Int... Start Date: 06/06/22 Status: Ordered Thera oral tablet 1 tablet, By Mouth, Daily, # 90 tablet, 3 Refills, Maintenance, 09/18/22 15:52:00 EDT, Tablet, [facility], Partial fill upon patient request if the prescription is for a schedule II opioid drug., 1 tablet By Mouth Daily, 167.6, cm, 02... Start Date: 09/18/22 Status: Ordered Wellbutrin XL 300 mg/24 hours oral tablet, extended release 1 tablet = 300 mg, By Mouth, Daily, # 90 tablet, 3 Refills, Maintenance, 09/18/22 15:50:00 EDT, ER Tablet, [facility], Partial fill upon patient request if the prescription is for a schedule II opioid drug., 167.6, cm, 07/04/22 16:00:... 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[employer] [facility] [employer] [phone] Confirmed Active Mild recurrent major depression Confirmed Active Urinary incontinence Confirmed Active 1EGD 07/2010 - likely apthous ulcers with very morbid 2 weeks of weight loss and requiring IV fluids Social History Social History Type Response Smoking Status Never smoker; Tobacc o user in household: No entered on: 01/26/15 Sex Laboratory * Event Display: Non BH Lab Results Authored Date: * Event Display: Non Lab Results Authored Date: Note * Francesca Silvestre: PERFORM, SIGN, VERIFY Event Display: Patient Education/Instruction Authored Date: [id number] [facility] Clinical Summary Person Information Name JASON ZAVALA [...] primary care provider, you may find a [facility] provider by calling [facility] at [phone]. Patient Education Information Follow-up Details: Patient Education Material: Patient Care team information Care Team Personnel Name: Jaky Nicole RN Position: [facility] RN Member Role: Primary Care Nurse Name: Rhea Heard Position: S RN Member Role: Primary Care Nurse Name: Shala Shields MD Position: [facility] Physician - Primary Care Member Role: PCP Address: Address: [address] [place] [address] [place] [address]- Name: Kassi Wang RN Position: S RN Member Role: Primary Care Nurse Name: Isabell David RN Position: [facility] SN RN Member Role: Primary Care Nurse Care Team Related Persons Name: DORIE REYES Address: home [address] [place] [id number] Name: SHANIKA ZAVALA Address: home [address] [place] [address]
--- OUTSIDE RECORDS SUMMARY | 2023-11-18 06:40 | XMS_ITS | Continuity of Care Document ---
Author Organization [facility] Address [address] [place] [address]- Care Team Providers Care Brokerage Office Manager Name Role Phone Cornelius REDDY, Shala Kuo Primary Care Physician [facility]23 - 09/06/23 [facility] [address] [place] [address]- Allergies, Adverse Reactions, Alerts Substance Reaction Severity [...] GIVEN DATED: 11/18/11 8Admin Note: VIS GIVEN HUNGARIAN 2011-04 9Admin Note: vis given vis date [...] tablet, 1 Refills, Maintenance, 02/20/23 13:37:00 EDT,Tablet, [facility], Partial fill upon patient request if [...] Refills, Maintenance, 09/04/23 11:14:00 EDT, Chew Tablet, [facility], Partial fill upon [...] 1 Refills, Maintenance, 04/25/23 11:55:00 EST, Tablet, [facility], Partial fill upon patient request if the prescription is for a... Start Date: 04/25/23 Status: Ordered diclofenac 1% topical gel 1 application, Topically, 4 times a day, # 100 Gm, 11 Refills, Maintenance, 09/18/22 15:52:00 EDT, Gel, [facility], Partial fill upon patient request if the prescription is for a schedule II opioid drug., 167.6, cm, 07/04/22 16:00:00... Start Date: 09/18/22 Status: Ordered duloxetine 60 mg oral enteric coated capsule 1 capsule = 60 mg, By Mouth, Daily, start with duloxetine 30mg daily x 2 weeks then duloxetine 60mgdaily;, # 30 capsule, 4 Refills, Maintenance, 07/03/23 19:03:00 EST, EC Capsule, [facility], Partial fill upon patient request if the... Start Date: 07/03/23 Status: Ordered ferrous sulfate 325 mg oral enteric coated tablet 325 mg, 1, tablet, By Mouth, Daily, # 90 tablet, Refills 3, Tot. Refills 3, Maintenance, 08/26/23 9:38:00 EDT, Route to Pharmacy Electronically, [facility], Partial fill upon patientrequest if the prescription is for a schedule II op... Start Date: 08/26/23 Status: Ordered gabapentin 100 mg oral capsule 100 mg, 1, capsule, By Mouth, Daily at bedtime, PRN, # 30 capsule, Refills 4, Tot. Refills 4, Maintenance, Anxiety, 08/05/23 10:19:00 EDT, Route to Pharmacy Electronically, [facility], Partial fill upon patient request if the prescrip... Start Date: 08/05/23 Stop Date: 08/12/23 Status: Ordered Genvoya oral tablet 1 tablet, By Mouth, Daily, with food, please get labs before refills; BUBBLE PACK, # 90 tablet, 1 Refills, Maintenance, 04/25/23 11:55:00 EST, Tablet, [facility], Partial fill upon patient request if the prescription is for a schedule... Start Date: 04/25/23 Status: Ordered hydrochlorothiazide-olmesartan 25 mg-40 mg oral tablet 0.5 tablet, By Mouth, Daily, # 15 tablet, 4 Refills, Maintenance, 08/07/23 15:23:00 EDT, Tablet, [facility]/pharmacy #[id number], decrease dose, 0.5 tablet By Mouth Daily, 167.6, cm, 08/05/23 9:50:00 EDT, Height Start Date: 08/07/23 Status: Ordered Lidoderm 5% film 2 patch, Topically, Daily, remove patches after 12 hours; 2 patches to pain areas; can cut patches in half; do not excede 2 patches., # 60 patch, 4 Refills, Maintenance, 03/06/23 15:42:00 EDT, [facility]/pharmacy #[id number], Partial fill upon patient request if t... Start Date: 03/06/23 Stop Date: 08/03/23 Status: Ordered meloxicam 7.5 mg oral tablet 1 tablet = 7.5 mg, By Mouth, Daily, [place] with acetaminophen, # 14 tablet, 0 Refills, Maintenance, 08/25/23 16:16:00 EDT, Tablet, [facility], Partial fill upon [...] 4 Refills, Maintenance, 07/28/23 16:46:00 EDT, Tablet, [facility]/pharmacy #[id number], Partial fill upon patient request [...] Refills, Maintenance, 07/03/23 18:52:00 EST, REC Powder, [facility], Partial fill upon patient request if the prescription is for a schedule II opioid drug., 17 Gm... Start Date: 07/03/23 Stop Date: 10/01/23 Status: Ordered Thera oral tablet 1 tablet, By Mouth, Daily, # 90 tablet, 3 Refills, Maintenance, 08/26/23 9:38:00 EDT, Tablet, [facility], Partial fill upon patient request if the prescription is for a schedule II opioid drug., 1 tablet By Mouth Daily, 167.6, cm, ... Start Date: 08/26/23 Status: Ordered Vitamin D3 1000 intl units oral capsule 1 capsule = 25 mcg, By Mouth, Daily, # 90 capsule, 3 Refills, Maintenance, 07/03/23 19:05:00 EST, Capsule, [facility], Partial fill upon patient request [...] pubis OA, left Confirmed Active *Catalina Diaz Sensitizer-[facility] [phone] Confirmed Active Mild recurrent major depression Confirmed Active Rosacea Confirmed Active Urinary incontinence Confirmed Active Social History Social History Type Response Tobacco Use: Rolls weed in l eaf tabacco . Sex Patient Care team information Care Team Personnel Name: Jaky Nicole RN Position: [facility] RN Member Role: Primary Care Nurse Name: Rhea Brooks Position: [facility] RN Member Role: Primary Care Nurse Name: Shala Shields MD Position: [facility] Physician - Primary Care Member Role: PCP Address: Address: [address] [place] [address] Name: Kassi Wang RN Position: [facility] RN Member Role: Primary Care Nurse Name: Isabell David RN Position: [facility] ERNESTO Office Staff Member Role: Primary Care Nurse Care Team Related Persons Name: REYES OSHEA Address: home [address] [place] [id number] Name: SHANKIA ZAVALA Address: home [address] [place] [address]
--- OUTSIDE RECORDS SUMMARY | 2023-11-18 06:40 | XMS_ITS | Continuity of Care Document ---
Author Organization [facility] Address [address] [place] [address]- Care Team Providers Care Police Or Patrol Park Officer Name Role Phone Cornelius REDDY, Shala Kuo Primary Care Physician [phone] [facility]counter [facility](s): 12/24/22 - 01/31/23 [facility] [address] [place] [id number] Attending Physician: Steve Awan MD Admitting Physician: Steve Awan MD Allergies, Adverse Reactions, Alerts Substance Reaction Severity Status azithromycin 1 Persistent Mild Active rifabutin Rash Persistent Moderate Active amLODIPine 2 Active 1Rash 2Had Lower extremity ankle swelling with 10mg. Immunizations Given and Recorded Vaccine Date Status Refusal Reason SARS-CoV-2 (COVID-19) [id number] vaccine 04/04/22 G iven influenza virus vaccine, [...] 09/18/22 15:52:00 EDT, [facility] Partial fill upon patient request if the... Start Date: 09/18/22 Status: Ordered Bactrim 400 mg-80 mg oral tablet 1 tablet, By Mouth, Daily, for 30 days, # 30 tablet, 2 Refills, Acute 03/12/23 9:28:00 EDT, 12/12/22 9:28:00 EDT, Tablet[facility] Partial fill upon patient request if the [...] mL, 11 Refills, Maintenance, 09/18/22 15:52:00 EDT, [facility], replaced tablets by suspension, 167.6, cm, 07/04/22 16:00:00 EST, Height, 69.3, kg, 02/02/21 13:00... Start Date: 09/18/22 Stop Date: 08/20/23 Status: Ordered Colace sodium 100 mg oral capsule 100 mg, 1, capsule, By Mouth, 2 times a day, PRN, # 60 capsule, Refills 11, Tot. Refills 11, Maintenance, for constipation, 09/18/22 15:52:00 EDT, [facility], Partial fill upon patient request if the... Start Date: 09/18/22 Status: Ordered darunavir 800 mg oral tablet 1 tablet = 800 mg, By Mouth, Daily, with food, please get labs before refills, # 90 tablet, 3 Refills, Maintenance, 11/25/22 9:47:00 EDT, Tablet, [facility], Partial fill upon patient request if the prescription is for a schedule II o... Start Date: 11/25/22 Status: Ordered diclofenac 1% topical gel 1 application, Topically, 4 times a day, # 100 Gm, 11 Refills, Maintenance, 09/18/22 15:52:00 EDT, Gel, [facility], Partial fill upon patient request if the prescription is for a schedule II opioid drug., 167.6, cm, 07/04/22 16:00:00... Start Date: 09/18/22 Status: Ordered ferrous sulfate 325 mg oral enteric coated tablet 325 mg, 1, tablet, By Mouth, Every other day, # 45 tablet, Refills 3, Tot. Refills 3, Maintenance, 09/18/22 15:52:00 EDT, Route to Pharmacy Electronically, [facility], Partial fill upon patient request if the prescription is for a hubert... Start Date: 09/18/22 Status: Ordered Genvoya oral tablet 1 tablet, By Mouth, Daily, with food, please get labs before refills, # 90 tablet, 3 Refills, Maintenance, 11/25/22 10:45:00 EDT, Tablet, [facility], Partial fill upon patient request if the prescription is for a schedule II opioid dr... Start Date: 11/25/22 Status: Ordered hydrochlorothiazide-olmesartan 25 mg-40 mg oral tablet 1 tablet, By Mouth, Daily, # 90 tablet, 3 Refills, Maintenance, 09/18/22 15:50:00 EDT, Tablet, [facility], d/c HCTZ/lisinopril, 1 tablet By Mouth Daily, 167.6, cm, 07/04/22 16:00:00 EST, Height, 69.3, kg, 02/02/21 13:00:00 EDT, Dry We... Start Date: 09/18/22 Status: Ordered MetroGel 1% topical gel 1 application, Topically, Daily, PRN facial rash, # 60 Gm, 11 Refills, Maintenance, 12/23/22 8:40:00 EDT, Gel, [facility], Partial fill upon patient request if the prescription is for a schedule II opioid drug., 1 application Topicall... Start Date: 12/23/22 Status: Ordered MiraLax oral powder for reconstitution = 17 Gm, By Mouth, Daily, PRN Constipation, dissolve in water before taking, # 527 Gm, 11 Refills, Maintenance, 09/18/22 15:52:00 EDT, REC Powder, [facility], Partial fill upon patient request if [...] Refills, Soft Stop, 12/23/22 8:46:00 EDT, Powder, [facility], Partial fill upon patient request if the prescription is for a schedule II opioid drug., 0.5 mL Int... Start Date: 12/23/22 Status: Ordered Thera oral tablet 1 tablet, By Mouth, Daily, # 90 tablet, 3 Refills, Maintenance, 09/18/22 15:52:00 EDT, Tablet, [facility], Partial fill upon patient [...] pubis OA, left Confirmed Active *Catalina Diaz Steam Hoist Operator-[facility] [phone] Confirmed Active Mild recurrent major depression Confirmed [...] Team Personnel Name: Jaky Nicole RN Position: [facility] RN Member Role: Primary Care Nurse Name: Rhea Heard Position: [facility] RN Member Role: Primary Care Nurse Name: Shala Shields MD Position: [facility] Physician - Primary Care Member Role: PCP Address: Address: [address] [place] [address] [place] [address]- [place] Name: Kassi Wang RN Position: S RN Member Role: Primary Care Nurse Name: Isabell David RN Position: [facility] RN Member Role: Primary Care Nurse Name: Tamy Lamb RN Position: S RN Member Role: Primary Care Nurse Care Team Related Persons Name: CHERELLE OSHEAIA Address: home [address] [address] Name: SHANIKA ZAVALA Address: home [address] [place] [address]
--- OUTSIDE RECORDS SUMMARY | 2023-11-18 06:40 | XMS_ITS | Continuity of Care Document ---
Author Organization [facility] Address [address] [place] [address]- Care Team Providers Care Visual Stylist Name Role Phone Cornelius REDDY, Shala Kuo Primary Care Physician [phone] [facility]23 - 04/30/23 [facility] [address] [place] [id number] Allergies, Adverse Reactions, Alerts Substance Reaction Severity [...] GIVEN DATED: 11/18/11 8Admin Note: VIS GIVEN WELSH 2011-04 9Admin Note: vis given vis date 12/26/2009 10Admin Note: Prevnar 11Admin Note: VIS GIVEN VIS DATE 03/26 Medications acetaminophen 325 mg oral tablet 650 mg, 2, tablet, By Mouth, 3 times a day, PRN, # 540 tablet, Refills 3, Tot. Refills 3, Maintenance, as needed for fever, 02/20/23 13:39:00 EDT, Route to Pharmacy Electronically, [facility], Partial fill upon patient request if the prescri... Start Date: 02/20/23 Status: Ordered Bactrim 400 mg-80 mg oral tablet 1 tablet, By Mouth, Daily, BUBBLE PACK, # 90 tablet, 1 Refills, Maintenance, 02/20/23 13:37:00 EDT,Tablet, [facility], Partial fill upon patient request if [...] mL, 11 Refills, Maintenance, 09/18/22 15:52:00 EDT, [facility], replaced tablets by suspension, 167.6, cm, 07/04/22 16:00:00 EST, Height, 69.3, kg, 02/02/21 13:00... Start Date: 09/18/22 Stop Date: 08/20/23 Status: Ordered Colace sodium 100 mg oral capsule 100 mg, 1, capsule, By Mouth, 2 times a day, PRN, # 60 capsule, Refills 11, Tot. Refills 11, Maintenance, for constipation, 02/20/23 13:39:00 EDT, Route to Pharmacy Electronically, [facility], Partial fill upon patient request if the prescri... Start Date: 02/20/23 Status: Ordered darunavir 800 mg oral tablet 1 tablet = 800 mg, By Mouth, Daily, with food, please get labs before refills; BUBBLE PACK, # 90 tablet, 1 Refills, Maintenance, 04/25/23 11:55:00 EST, Tablet, [facility], Partial fill upon patient request if the prescription is for a... Start Date: 04/25/23 Status: Ordered diclofenac 1% topical gel 1 application, Topically, 4 times a day, # 100 Gm, 11 Refills, Maintenance, 09/18/22 15:52:00 EDT, Gel, [facility], Partial fill upon patient request if the prescription is for a schedule II opioid drug., 167.6, cm, 07/04/22 16:00:00... Start Date: 09/18/22 Status: Ordered duloxetine 30 mg oral enteric coated capsule 1 capsule = 30 mg, By Mouth, Daily, start with duloxetine 30mg daily x 2 weeks then duloxetine 60mgdaily; BUBBLE PACK, # 14 capsule, 0 Refills, Maintenance, 02/20/23 13:46:00 EDT, [facility], Partial fill upon patient request if the prescri... Start Date: 02/20/23 Stop Date: 03/06/23 Status: Ordered duloxetine 60 mg oral enteric coated capsule 1 capsule = 60 mg, By Mouth, Daily, start with duloxetine 30mg daily x 2 weeks then duloxetine 60mgdaily; BUBBLE PACK, # 30 capsule, 4 Refills, Maintenance, 02/20/23 13:46:00 EDT, EC Capsule, [facility], Partial fill upon patient request if... Start Date: 02/20/23 Status: Ordered ferrous sulfate 325 mg oral enteric coated tablet 325 mg, 1, tablet, By Mouth, Every other day, BUBBLE PACK, # 45 tablet, Refills 3, Tot. Refills 3, Maintenance, 02/20/23 13:37:00 EDT, Route to Pharmacy Electronically, [facility], Partial fill upon patient request if the prescription is for... Start Date: 02/20/23 Status: Ordered Genvoya oral tablet 1 tablet, By Mouth, Daily, with food, please get labs before refills; BUBBLE PACK, # 90 tablet, 1 Refills, Maintenance, 04/25/23 11:55:00 EST, Tablet, [facility], Partial fill upon patient request if the prescription is for a schedule... Start Date: 04/25/23 Status: Ordered hydrochlorothiazide-olmesartan 25 mg-40 mg oral tablet 1 tablet, By Mouth, Daily, BUBBLE PACK, # 90 tablet, 3 Refills, Maintenance, 02/20/23 13:37:00 EDT,Tablet, [facility], d/c HCTZ/lisinopril, 1 tablet By Mouth Daily,Instr:BUBBLE PACK, 167.6, cm, 12/23/22 8:35:00 EDT, Height Start Date: 02/20/23 Status: Ordered Lidoderm 5% film 2 patch, Topically, Daily, remove patches after 12 hours; 2 patches to pain areas; can cut patches in half; do not excede 2 patches., # 60 patch, 4 Refills, Maintenance, 03/06/23 15:42:00 EDT, [facility]/pharmacy #[id number], Partial fill upon patient request if t... Start Date: 03/06/23 Stop Date: 08/03/23 Status: Ordered MetroGel 1% topical gel 1 application, Topically, Daily, PRN facial rash, # 60 Gm, 11 Refills, Maintenance, 12/23/22 8:40:00 EDT, Gel, [facility], Partial fill upon patient request if the prescription is for a schedule II opioid drug., 1 application Topicall... Start Date: 12/23/22 Status: Ordered MiraLax oral powder for reconstitution = 17 Gm, By Mouth, Daily, PRN Constipation, dissolve in water before taking, # 527 Gm, 11 Refills, Maintenance, 02/20/23 13:39:00 EDT, REC Powder, [facility], Partial fill upon patient request if [...] Refills, Soft Stop, 12/23/22 8:46:00 EDT, Powder, [facility], Partial fill upon patient request if the prescription is for a schedule II opioid drug., 0.5 mL Int... Start Date: 12/23/22 Status: Ordered Thera oral tablet 1 tablet, By Mouth, Daily, BUBBLE PACK, # 90 tablet, 3 Refills, Maintenance, 02/20/23 13:37:00 EDT,Tablet, [facility], Partial fill upon patient request if the prescription is for a schedule II opioid drug., 1 tablet By Mouth Daily,Instr:BU... Start Date: 02/20/23 Status: Ordered tiZANidine 4 mg oral capsule 1 capsule = 4 mg, By Mouth, 3 times a day, # 21 capsule, 0 Refills, Maintenance, 03/06/23 15:41:00 EDT, Capsule, [facility]/pharmacy #[id number], Partial fill upon patient request if the [...] pubis OA, left Confirmed Active *Catalina Diaz Addiction Treatment Counselor-[facility] [phone] Confirmed Active Mild recurrent major depression Confirmed [...] Team Personnel Name: Jaky Nicole RN Position: [facility] RN Member Role: Primary Care Nurse Name: Rhea Heard Position: S RN Member Role: Primary Care Nurse Name: Shala Shields MD Position: [facility] Physician - Primary Care Member Role: PCP Address: Address: [address] [place] [address] Name: Kassi Wang RN Position: S RN Member Role: Primary Care Nurse Name: Isabell David RN Position: [facility] SN RN Member Role: Primary Care Nurse Care Team Related Persons Name: REYES OSHEA Address: home [address] [place] [id number] Name: SHANIKA ZAVALA Address: home [address] [place] [address]
--- OUTSIDE RECORDS SUMMARY | 2023-11-18 06:40 | XMS_ITS | Continuity of Care Document ---
Author Organization [facility] Address [address] [place] [address]- Care Team Providers Care Swahili Teacher Name Role Phone Cornelius REDDY, Shala Kuo Primary Care Physician [facility]): [facility] - 07/22/21 [facility] [address] [place] [id number] Attending Physician: Arnold Lindquist MD Admitting Physician: Arnold Lindquist MD Allergies, Adverse Reactions, Alerts Substance Reaction [...] GIVEN DATED: 11/18/11 8Admin Note: VIS GIVEN CYPRIOT 2011-04 9Admin Note: vis given vis date 12/26/2009 10Admin Note: Prevnar 11Admin Note: VIS GIVEN VIS DATE 03/26 Medications Bactrim DS 800 mg-160 mg oral tablet 1 tablet, By Mouth, Daily, # 30 tablet, 5 Refills, Maintenance, 01/25/21 10:04:00 EDT, Tablet, [facility], Partial fill upon [...] mL, 11 Refills, Maintenance, 02/02/21 17:36:00 EDT, [facility], replaced tablets by suspension, 167.6, cm, 02/02/21 13:00:00 EDT, Height, 69.3, kg, 02/02/21 13:00... Start Date: 02/02/21 Stop Date: 01/04/22 Status: Ordered Colace sodium 100 mg oral capsule 100 mg, 1, capsule, By Mouth, 2 times a day, PRN, # 60 capsule, Refills 11, Tot. Refills 11, Maintenance, for constipation, 02/08/21 20:01:00 EDT, Route to Pharmacy Electronically, [facility]/pharmacy #[id number], Partial fill upon patient request if the prescript... Start Date: 02/08/21 Status: Ordered darunavir 800 mg oral tablet 1 tablet = 800 mg, By Mouth, Daily, # 30 tablet, 5 Refills, Maintenance, 01/25/21 10:06:00 EDT, Tablet, [facility], Partial fill upon patient request if the prescription is for a schedule II opioid drug., 167.6, cm, 01/23/21 18:14:00... Start Date: 01/25/21 Status: Ordered ferrous sulfate 325 mg oral enteric coated tablet 325 mg, 1, tablet, By Mouth, Daily, # 30 tablet, Refills 11, Tot. Refills 11, Maintenance, 03/02/2112:59:00 EDT, Route to Pharmacy Electronically, [facility], Partial fill upon patient request if the prescription is for a schedule II... Start Date: 03/02/21 Status: Ordered Genvoya oral tablet 1 tablet, By Mouth, Daily, with food, # 30 tablet, 5 Refills, Maintenance, 01/25/21 9:51:00 EDT, Tablet, [facility], Partial fill upon patient request if the prescription is for a schedule II opioid drug., 1 tablet By Mouth Daily,Inst... Start Date: 01/25/21 Status: Ordered hydrochlorothiazide-lisinopril 25 mg-20 mg oral tablet 1 tablet, By Mouth, Daily, # 30 tablet, 4 Refills, Maintenance, 06/28/21 16:48:00 EST, Tablet, [facility], d/c lisinopril 40 mg - change to combo med, 1 tablet By Mouth Daily, 167.6,cm, 02/19/21 16:01:00 EDT, Height, 69.3, kg, ... Start Date: 06/28/21 Status: Ordered MiraLax oral powder for reconstitution = 17 Gm, By Mouth, Daily, PRN Constipation, dissolve in water before taking, # 527 Gm, 11 Refills, Maintenance, 02/08/21 20:01:00 EDT, REC Powder, [facility]/pharmacy #[id number], Partial fill upon patient request if the prescription is for a schedule II opioid dr... Start Date: 02/08/21 Status: Ordered mirtazapine 15 mg oral tablet 1 tablet = 15 mg, By Mouth, Daily at bedtime, # 30 tablet, 4 Refills, Maintenance, 02/19/21 16:53:00 EDT, Tablet, [facility], increase dose, 167.6, cm, 02/19/21 16:01:00 EDT, Height,69.3, kg, 02/02/21 13:00:00 EDT, Dry Weight Start Date: 02/19/21 Stop Date: 07/19/21 Status: Ordered [facility] Rx Refills 0, Maintenance, Calcium/Mg/ Zinc 1 [...] 02/02/21 14:41:00 EDT, Route to Pharmacy Electronically, [facility]/pharmacy #[id number], 167.6, cm, 02/02/21 13:00:00 EDT, [...] 10:56:00 EDT, 12/19/20 10:56:00 EDT, REC Powder, [facility]/pharmacy #[id number], Partial fill upon patient request... Start Date: 12/19/20 Stop Date: 12/16/21 Status: Ordered Thera oral tablet 1 tablet, By Mouth, Daily, # 30 tablet, 11 Refills, Maintenance, 03/09/21 16:13:00 EDT, Tablet, [facility], Partial fill upon [...] 02/02/21 14:41:00 EDT, Route to Pharmacy Electronically, [facility]/pharmacy #[id number], Partial fill upon patient request [...]
--- OUTSIDE RECORDS SUMMARY | 2023-11-18 06:40 | XMS_ITS | Continuity of Care Document ---
Author Organization [facility] Address [address] [place] [address]- Care Team Providers Care Flight Manager Name Role Phone Shala Shields MD Primary Care Physician [facility]): 12[facility]22 - 02/05/23 [facility] [address] [place] [id number] Attending Physician: Not on Staff, Attending MD Referring Physician: Shala Shields MD Allergies, Adverse Reactions, Alerts Substance Reaction Severity Status azithromycin 1 Persistent Mild Active rifabutin Rash Persistent Moderate Active amLODIPine 2 Active 1Rash 2Had Lower extremity ankle swelling with 10mg. Immunizations Given and Recorded Vaccine Date Status Refusal Reason SARS-CoV-2 (COVID-19) [id number] vaccine 04/04/22 G iven influenza virus vaccine, [...] 09/18/22 15:52:00 EDT, Route to Pharmacy Electronically, [facility], Partial fill upon patient request if the... Start Date: 09/18/22 Status: Ordered Bactrim 400 mg-80 mg oral tablet 1 tablet, By Mouth, Daily, for 30 days, # 30 tablet, 2 Refills, Acute 03/12/23 9:28:00 EDT, 12/12/22 9:28:00 EDT, Tablet[facility], [facility] fill upon patient request if [...] mL, 11 Refills, Maintenance, 09/18/22 15:52:00 EDT, [facility], replaced tablets by suspension, 167.6, cm, 07/04/22 16:00:00 EST, Height, 69.3, kg, 02/02/21 13:00... Start Date: 09/18/22 Stop Date: 08/20/23 Status: Ordered Colace sodium 100 mg oral capsule 100 mg, 1, capsule, By Mouth, 2 times a day, PRN, # 60 capsule, Refills 11, Tot. Refills 11, Maintenance, for constipation, 09/18/22 15:52:00 EDT, Route to Pharmacy Electronically, [facility], Partial fill upon patient request if the... Start Date: 09/18/22 Status: Ordered darunavir 800 mg oral tablet 1 tablet = 800 mg, By Mouth, Daily, with food, please get labs before refills, # 90 tablet, 3 Refills, Maintenance, 11/25/22 9:47:00 EDT, Tablet, [facility], Partial fill upon patient request if the prescription is for a schedule II o... Start Date: 11/25/22 Status: Ordered diclofenac 1% topical gel 1 application, Topically, 4 times a day, # 100 Gm, 11 Refills, Maintenance, 09/18/22 15:52:00 EDT, Gel, [facility], Partial fill upon patient request if the prescription is for a schedule II opioid drug., 167.6, cm, 07/04/22 16:00:00... Start Date: 09/18/22 Status: Ordered ferrous sulfate 325 mg oral enteric coated tablet 325 mg, 1, tablet, By Mouth, Every other day, # 45 tablet, Refills 3, Tot. Refills 3, Maintenance, 09/18/22 15:52:00 EDT, Route to Pharmacy Electronically, [facility], Partial fill upon patient request if the prescription is for a hubert... Start Date: 09/18/22 Status: Ordered Genvoya oral tablet 1 tablet, By Mouth, Daily, with food, please get labs before refills, # 90 tablet, 3 Refills, Maintenance, 11/25/22 10:45:00 EDT, Tablet, [facility], Partial fill upon patient request if the prescription is for a schedule II opioid dr... Start Date: 11/25/22 Status: Ordered hydrochlorothiazide-olmesartan 25 mg-40 mg oral tablet 1 tablet, By Mouth, Daily, # 90 tablet, 3 Refills, Maintenance, 09/18/22 15:50:00 EDT, Tablet, [facility], d/c HCTZ/lisinopril, 1 tablet By Mouth Daily, 167.6, cm, 07/04/22 16:00:00 EST, Height, 69.3, kg, 02/02/21 13:00:00 EDT, Dry We... Start Date: 09/18/22 Status: Ordered MetroGel 1% topical gel 1 application, Topically, Daily, PRN facial rash, # 60 Gm, 11 Refills, Maintenance, 12/23/22 8:40:00 EDT, Gel, [facility], Partial fill upon patient request if the prescription is for a schedule II opioid drug., 1 application Topicall... Start Date: 12/23/22 Status: Ordered MiraLax oral powder for reconstitution = 17 Gm, By Mouth, Daily, PRN Constipation, dissolve in water before taking, # 527 Gm, 11 Refills, Maintenance, 09/18/22 15:52:00 EDT, REC Powder, [facility], Partial fill upon patient request if [...] Refills, Soft Stop, 12/23/22 8:46:00 EDT, Powder, [facility], Partial fill upon patient request if the prescription is for a schedule II opioid drug., 0.5 mL Int... Start Date: 12/23/22 Status: Ordered Thera oral tablet 1 tablet, By Mouth, Daily, # 90 tablet, 3 Refills, Maintenance, 09/18/22 15:52:00 EDT, Tablet, [facility], Partial fill upon [...] pubis OA, left Confirmed Active *Catalina Diaz Rehabilitation Program Manager-[facility] [phone] Confirmed Active Mild recurrent major depression Confirmed [...] Team Personnel Name: Jaky Nicole RN Position: [facility] RN Member Role: Primary Care Nurse Name: Rhea Heard Position: [facility] RN Member Role: Primary Care Nurse Name: Shala Shields MD Position: [facility] Physician - Primary Care Member Role: PCP Address: Address: [address] [place] [address] [facility] [place], [place] [address] Name: Kassi Wang RN Position: S RN Member Role: Primary Care Nurse Name: Isabell David RN Position: S SN RN Member Role: Primary Care Nurse Name: Tamy Lamb RN Position: S RN Member Role: Primary Care Nurse Care Team Related Persons Name: REYES OSHEA Address: home [address] [address] Name: SHANIKA ZAVALA Address: home [address] [place] [address]
--- OUTSIDE RECORDS SUMMARY | 2023-11-18 06:40 | XMS_ITS | Continuity of Care Document ---
Author Organization [facility] Address [address] [place] [address]- Care Team Providers Care Ski Patroller Name Role Phone Cornelius REDDY, Shala Kuo Primary Care Physician [phone] [facility] - 10/10/23 [facility] [address] [place], [place] [phone] Allergies, Adverse Reactions, Alerts Substance Reaction Severity [...] GIVEN DATED: 11/18/11 8Admin Note: VIS GIVEN LATVIAN 2011-04 9Admin Note: vis given vis date 12/26/2009 10Admin Note: Prevnar 11Admin Note: VIS GIVEN VIS DATE 03/26 Medications acetaminophen 325 mg oral tablet 650 mg, 2, tablet, By Mouth, 3 times a day, PRN, # 540 tablet, Refills 3, Tot. Refills 3, Maintenance, as needed for fever, 02/20/23 13:39:00 EDT, Route to Pharmacy Electronically, [facility], Partial fill upon patient request if [...] 02/20/23 13:39:00 EDT, Route to Pharmacy Electronically, [facility], Partial fill upon patient request if the prescri... Start Date: 02/20/23 Status: Ordered darunavir 800 mg oral tablet 1 tablet = 800 mg, By Mouth, Daily, with food, please get labs before refills; BUBBLE PACK, # 90 tablet, 1 Refills, Maintenance, 09/29/23 14:29:00 EDT, Tablet, [facility], Partial fill upon patient request if the prescription is for a... Start Date: 09/29/23 Status: Ordered diclofenac 1% topical gel 1 application, Topically, 4 times a day, # 100 Gm, 11 Refills, Maintenance, 09/18/22 15:52:00 EDT, Gel, [facility], Partial fill upon patient request if the prescription is for a schedule II opioid drug., 167.6, cm, 07/04/22 16:00:00... Start Date: 09/18/22 Status: Ordered duloxetine 60 mg oral enteric coated capsule 1 capsule = 60 mg, By Mouth, Daily, start with duloxetine 30mg daily x 2 weeks then duloxetine 60mgdaily;, # 30 capsule, 4 Refills, Maintenance, 07/03/23 19:03:00 EST, EC Capsule, [facility], Partial fill upon patient request if the... Start Date: 07/03/23 Status: Ordered ferrous sulfate 325 mg oral enteric coated tablet 325 mg, 1, tablet, By Mouth, Daily, # 90 tablet, Refills 3, Tot. Refills 3, Maintenance, 08/26/23 9:38:00 EDT, Route to Pharmacy Electronically, [facility], Partial fill upon patientrequest if the prescription is for a schedule II op... Start Date: 08/26/23 Status: Ordered gabapentin 100 mg oral capsule 400 mg, 4, capsule, By Mouth, Daily at bedtime, 2 caps qHS x 1 week then 3 caps qHS x 1 week then 4caps qHS, # 120 capsule, Refills 4, Tot. Refills 4, Maintenance, 09/24/23 14:21:00 EDT, Route to Pharmacy Electronically, [facility],... Start Date: 09/24/23 Status: Ordered Genvoya oral tablet 1 tablet, By Mouth, Daily, with food, please get labs before refills; BUBBLE PACK, # 90 tablet, 1 Refills, Maintenance, 09/29/23 14:29:00 EDT, Tablet, [facility], Partial fill upon patient request if the prescription is for a schedule... Start Date: 09/29/23 Status: Ordered hydrochlorothiazide-olmesartan 25 mg-40 mg oral tablet 0.5 tablet, By Mouth, Daily, # 15 tablet, 4 Refills, Maintenance, 08/07/23 15:23:00 EDT, Tablet, [facility]/pharmacy #[id number], decrease dose, 0.5 tablet By Mouth Daily, 167.6, cm, 08/05/23 9:50:00 EDT, Height Start Date: 08/07/23 Status: Ordered hydrOXYzine pamoate 25 mg oral capsule 1 capsule = 25 mg, By Mouth, 4 times a day, PRN for anxiety, # 120 capsule, 0 Refills, Maintenance,09/11/23 19:24:00 EDT, Capsule, [facility]/pharmacy #[id number], Partial fill upon patient request if the prescription is for a schedule II opioid drug., 167.6, cm,... Start Date: 09/11/23 Status: Ordered Lidoderm 5% film 2 patch, Topically, Daily, remove patches after 12 hours; 2 patches to pain areas; can cut patches in half; do not excede 2 patches., # 60 patch, 4 Refills, Maintenance, 03/06/23 15:42:00 EDT, [facility]/pharmacy #[id number], Partial fill upon patient request if t... Start Date: 03/06/23 Stop Date: 08/03/23 Status: Ordered meloxicam 7.5 mg oral tablet 1 tablet = 7.5 mg, By Mouth, Daily, [place] with acetaminophen, # 14 tablet, 0 Refills, Maintenance, 08/25/23 16:16:00 EDT, Tablet, [facility], Partial fill upon patient request if theprescription is for a schedule II opioid drug., 167... Start Date: 08/25/23 Stop Date: 09/08/23 Status: Ordered [facility] Rx Refills 0, Maintenance, Calcium/Mg/ Zinc 1 tablet daily, 01/23/21 17:47:00 EDT, Supply Start Date: 01/23/21 Status: Ordered oxyCODONE 10 mg oral tablet 1 tablet = 10 mg, By Mouth, Every 6 hours, [place] Pat checked, opioid agreement, chronic pain; incdrease dose on 09/25/2023, # 112 tablet, 0 Refills, Maintenance, 10/08/23 13:38:00 EDT, Tablet, [facility]/pharmacy #[id number], Partial fill upon patient request if the... Start Date: 10/08/23 Status: Ordered pantoprazole 40 mg oral delayed [...] Refills, Maintenance, 07/03/23 18:52:00 EST, REC Powder, [facility], Partial fill upon patient request if the prescription is for a schedule II opioid drug., 17 Gm... Start Date: 07/03/23 Stop Date: 10/01/23 Status: Ordered Thera oral tablet 1 tablet, By Mouth, Daily, # 90 tablet, 3 Refills, Maintenance, 08/26/23 9:38:00 EDT, Tablet, [facility], Partial fill upon patient request if the prescription is for a schedule II opioid drug., 1 tablet By Mouth Daily, 167.6, cm, ... 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 Sex Patient Care team information Care Team Personnel Name: Jaky Nicole RN Position: [facility] RN Member Role: Primary Care Nurse Name: Rhea Brooks Position: [facility] RN Member Role: Primary Care Nurse Name: Shala Shields MD Position: [facility] Physician - Primary Care Member Role: PCP Address: Address: [address] [place] [id number] Name: Kassi Wang RN Position: [facility] RN Member Role: Primary Care Nurse Name: Isabell David RN Position: [facility] ERNESTO Office Staff Member Role: Primary Care Nurse Care Team Related Persons Name: DORIE REYES Address: home [address] [address] Name: SHANIKA ZAVALA Address: home [address] [facility] [place] [address]
--- OUTSIDE RECORDS SUMMARY | 2023-11-18 06:40 | XMS_ITS | Continuity of Care Document ---
Author Organization [facility] Address [address] [place] [address]- Care Team Providers Care Monogram Technician Name Role Phone Shala Shields MD Primary Care Physician [phone] Encounter [facility] [place] Date(s): 06/27/22 - 09/07/22 [facility] [address] [place] [address]- Attending Physician: Shala Shields MD Admitting Physician: [...] influenza virus vaccine, inactivated 5 06/22/14 Gi afrhan influenza virus vaccine, inactivated 6 04/08/13 Gi [...] GIVEN DATED: 11/18/11 8Admin Note: VIS GIVEN ANDORRAN 2011-04 9Admin Note: vis given vis date 12/26/2009 10Admin Note: Prevnar 11Admin Note: VIS GIVEN VIS DATE 03/26 Medications acetaminophen 325 mg oral tablet 650 mg, 2, tablet, By Mouth, 3 times a day, PRN, # 180 tablet, Refills 11, Tot. Refills 11, Maintenance, as needed for fever, 01/28/22 14:53:00 EDT, Route to Pharmacy Electronically, [facility], Partial fill upon patient request [...] mL, 11 Refills, Maintenance, 03/29/22 11:16:00 EST, [facility], replaced tablets by suspension, 167.6, cm, 03/05/22 9:57:00 EDT, Height, 69.3, kg, 02/02/21 13:00:... Start Date: 03/29/22 Stop Date: 02/28/23 Status: Ordered Colace sodium 100 mg oral capsule 100 mg, 1, capsule, By Mouth, 2 times a day, PRN, # 60 capsule, Refills 11, Tot. Refills 11, Maintenance, for constipation, 03/29/22 11:16:00 EST, Route to Pharmacy Electronically, [facility], Partial fill upon patient request if the... Start Date: 03/29/22 Status: Ordered darunavir 800 mg oral tablet 1 tablet = 800 mg, By Mouth, Daily, with food, please get labs before refills, # 90 tablet, 3 Refills, Maintenance, 11/28/21 12:11:00 EDT, Tablet, [facility], Partial fill upon patient request if the prescription is for a schedule II... Start Date: 11/28/21 Status: Ordered diclofenac 1% topical gel 1 application, Topically, 4 times a day, # 100 Gm, 11 Refills, Maintenance, 12/06/21 19:06:00 EDT, Gel, [facility] #[id number], Partial fill upon patient request if the prescription is for a schedule II opioid drug., 167.6, cm, 12/06/21 18:07:00 EDT, [place]... Start Date: 12/06/21 Status: Ordered duloxetine 60 mg oral enteric coated capsule 1 capsule = 60 mg, By Mouth, Daily, # 30 capsule, 11 Refills, Maintenance, 03/05/22 12:42:00 EDT, EC Capsule, [facility], Partial fill upon patient request if the prescription is fora schedule II opioid drug., 167.6, cm, 03/05/22 9:5... Start Date: 03/05/22 Status: Ordered ferrous sulfate 325 mg oral enteric coated tablet 325 mg, 1, tablet, By Mouth, Every other day, # 30 tablet, Refills 11, Tot. Refills 11, Maintenance, 12/06/21 19:06:00 EDT, Route to Pharmacy Electronically, [facility]/pharmacy #[id number], Partial fill upon patient request if the prescription is for a schedule I... Start Date: 12/06/21 Status: Ordered Genvoya oral tablet 1 tablet, By Mouth, Daily, with food, please get labs before refills, # 90 tablet, 3 Refills, Maintenance, 11/28/21 12:10:00 EDT, Tablet, [facility], Partial fill upon patient request if the prescription is for a schedule II opioid dr... Start Date: 11/28/21 Status: Ordered hydrochlorothiazide-olmesartan 25 mg-40 mg oral tablet 1 tablet, By Mouth, Daily, # 30 tablet, 4 Refills, Maintenance, 04/04/22 19:39:00 EST, Tablet, [facility], d/c HCTZ/lisinopril, 1 tablet By Mouth Daily, 167.6, cm, 04/04/22 19:29:00 EST, Height, 69.3, kg, 02/02/21 13:00:00 EDT, Dry We... Start Date: 04/04/22 Status: Ordered metroNIDAZOLE 0.75% topical gel 1 applicator, Vaginally, Daily, # 70 Gm, 0 Refills, Maintenance, 11/20/21 14:08:00 EDT, [facility], Partial fill upon patient request if the prescription is for a schedule II opioid drug., 1 applicator Vaginally Daily,x5 days, 167.6,... Start Date: 11/20/21 Stop Date: 11/25/21 Status: Ordered MiraLax oral powder for reconstitution = 17 Gm, By Mouth, Daily, PRN Constipation, dissolve in water before taking, # 527 Gm, 11 Refills, Maintenance, 03/29/22 11:16:00 EST, REC Powder, [facility], Partial fill upon patient request if the prescription is for a schedule II... Start Date: 03/29/22 Status: Ordered mirtazapine 15 mg oral tablet 1 tablet = 15 mg, By Mouth, Daily at bedtime, please get labs before refills, # 30 tablet, 11 Refills, Maintenance, 03/28/22 20:40:00 EST, Tablet, [facility], increase dose, 167.6, cm, 03/05/22 9:57:00 EDT, Height, 69.3, kg, 02/02/21... Start Date: 03/28/22 Stop Date: 03/23/23 Status: Ordered Misc Rx Refills 0, Maintenance, [...] Refills, Soft Stop, 06/06/22 10:12:00 EST, Powder, [facility] Partial fill upon patient request if the prescription is for a schedule II opioid drug., 0.5 mL Int... Start Date: 06/06/22 Status: Ordered Thera oral tablet 1 tablet, By Mouth, Daily, # 30 tablet, 11 Refills, Maintenance, 03/29/22 11:15:00 EST, Tablet, [facility], Partial fill upon patient request if the prescription is for a schedule IIopioid drug., 1 tablet By Mouth Daily, 167.6, cm, 1... Start Date: 03/29/22 Status: Ordered Wellbutrin XL 300 mg/24 hours oral tablet, extended release 1 tablet = 300 mg, By Mouth, Daily, # 30 tablet, 4 Refills, Maintenance, 04/04/22 19:36:00 EST, ER Tablet, [facility], Partial fill upon patient request if the prescription is for a schedule II opioid drug., 167.6, cm, 04/04/22 19:29:... 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-[facility] [phone] Confirmed Active Mild recurrent major depression Confirmed Active Urinary incontinence Confirmed Active 1EGD 07/2010 - likely apthous ulcers with very morbid 2 weeks of weight loss and requiring IV fluids Social History Social History Type Response Smoking Status Never smoker; Tobacc o user in household: No entered on: 01/26/15 Sex Patient Care team information Care Team Personnel Name: Jaky Nicole RN Position: [facility] RN Member Role: Primary Care Nurse Name: Rhea Heard Position: [facility] RN Member Role: Primary Care Nurse Name: Shala Shields MD Position: [facility] Primary Care Physician Member Role: PCP Address: Address: [address] [place] [address], [place] [address]- Name: Kassi Wang RN Position: [facility] RN Member Role: Primary Care Nurse Name: Isabell David RN Position: [facility] SN RN Member Role: Primary Care Nurse Care Team Related Persons Name: REYES OSHEA Address: home [address] [place] [id number] Name: SHANIKA ZAVALA Address: home [address] [place] [address]
--- OUTSIDE RECORDS SUMMARY | 2023-11-18 06:40 | XMS_ITS | Continuity of Care Document ---
Author Organization [facility] Address [address] [place] [address]- Care Team Providers Care Delinquent Tax Collector Name Role Phone Shala Shields MD Primary Care Physician Encounter [facility] Date(s): 08/20/22 - 11/23/22 [facility] [address] [place] [address] Attending Physician: Shala Shields MD Admitting Physician: [...] GIVEN DATED: 11/18/11 8Admin Note: VIS GIVEN [place] 2011-04 9Admin Note: vis given vis date 12/26/2009 10Admin Note: Prevnar 11Admin Note: VIS GIVEN VIS DATE 03/26 Medications acetaminophen 325 mg oral tablet 650 mg, 2, tablet, By Mouth, 3 times a day, PRN, # 540 tablet, Refills 3, Tot. Refills 3, Maintenance, as needed for fever, 09/18/22 15:52:00 EDT, [facility], Partial fill upon patient request if [...] mL, 11 Refills, Maintenance, 09/18/22 15:52:00 EDT, [facility], replaced tablets by suspension, 167.6, cm, 07/04/22 16:00:00 EST, Height, 69.3, kg, 02/02/21 13:00... Start Date: 09/18/22 Stop Date: 08/20/23 Status: Ordered Colace sodium 100 mg oral capsule 100 mg, 1, capsule, By Mouth, 2 times a day, PRN, # 60 capsule, Refills 11, Tot. Refills 11, Maintenance, for constipation, 09/18/22 15:52:00 EDT, [facility] Pharm[facility], [facility], Partial fill upon patient request if the... Start Date: 09/18/22 Status: Ordered darunavir 800 mg oral tablet 1 tablet = 800 mg, By Mouth, Daily, with food, please get labs before refills, # 90 tablet, 3 Refills, Maintenance, 11/28/21 12:11:00 EDT, Tablet, [facility], Partial fill upon patient request if the prescription is for a schedule II... Start Date: 11/28/21 Status: Ordered diclofenac 1% topical gel 1 application, Topically, 4 times a day, # 100 Gm, 11 Refills, Maintenance, 09/18/22 15:52:00 EDT, Gel, [facility], Partial fill upon patient request if the prescription is for a schedule II opioid drug., 167.6, cm, 07/04/22 16:00:00... Start Date: 09/18/22 Status: Ordered duloxetine 60 mg oral enteric coated capsule 1 capsule = 60 mg, By Mouth, Daily, # 90 capsule, 3 Refills, Maintenance, 09/18/22 15:52:00 EDT, ECCapsule, [facility], Partial fill upon patient request if the prescription is for a schedule II opioid drug., 167.6, cm, 07/04/22 16:0... Start Date: 09/18/22 Status: Ordered ferrous sulfate 325 mg oral enteric coated tablet 325 mg, 1, tablet, By Mouth, Every other day, # 45 tablet, Refills 3, Tot. Refills 3, Maintenance, 09/18/22 15:52:00 EDT, Route to Pharmacy Electronically, [facility], Partial fill upon patient request if the prescription is for a hubert... Start Date: 09/18/22 Status: Ordered Genvoya oral tablet 1 tablet, By Mouth, Daily, with food, please get labs before refills, # 90 tablet, 3 Refills, Maintenance, 11/28/21 12:10:00 EDT, Tablet, [facility], Partial fill upon patient request if the prescription is for a schedule II opioid dr... Start Date: 11/28/21 Status: Ordered hydrochlorothiazide-olmesartan 25 mg-40 mg oral tablet 1 tablet, By Mouth, Daily, # 90 tablet, 3 Refills, Maintenance, 09/18/22 15:50:00 EDT, Tablet, [facility], d/c HCTZ/lisinopril, 1 tablet By Mouth Daily, 167.6, cm, 07/04/22 16:00:00 EST, Height, 69.3, kg, 02/02/21 13:00:00 EDT, Dry We... Start Date: 09/18/22 Status: Ordered MiraLax oral powder for reconstitution = 17 Gm, By Mouth, Daily, PRN Constipation, dissolve in water before taking, # 527 Gm, 11 Refills, Maintenance, 09/18/22 15:52:00 EDT, REC Powder, [facility], Partial fill upon patient request if the prescription is for a schedule II... Start Date: 09/18/22 Status: Ordered mirtazapine 15 mg oral tablet 1 tablet = 15 mg, By Mouth, Daily at bedtime, please get labs before refills, # 90 tablet, 3 Refills, Maintenance, 09/18/22 15:52:00 EDT, Tablet, [facility], increase dose, 167.6, cm, 07/04/22 [...] Refills, Soft Stop, 06/06/22 10:12:00 EST, Powder[facility] Partial fill upon patient request if the prescription is for a schedule II opioid drug., 0.5 mL Int... Start Date: 06/06/22 Status: Ordered Thera oral tablet 1 tablet, By Mouth, Daily, # 90 tablet, 3 Refills, Maintenance, 09/18/22 15:52:00 EDT, Tablet, [facility], Partial fill upon patient request if the prescription is for a schedule II opioid drug., 1 tablet By Mouth Daily, 167.6, cm, 02... 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[facility] [phone] Confirmed Active Mild recurrent major depression Confirmed Active Urinary incontinence Confirmed Active 1EGD 07/2010 - likely apthous ulcers with very morbid 2 weeks of weight loss and requiring IV fluids Social History Social History Type Response Smoking Status Never smoker; Tobacc o user in household: No entered on: 01/26/15 Sex Patient Care team information Care Team Personnel Name: Jaky Nicole RN Position: [facility] RN Member Role: Primary Care Nurse Name: Rhea Heard Position: S RN Member Role: Primary Care Nurse Name: Shala Shields MD Position: [facility] Physician - Primary Care Member Role: PCP Address: Address: [address] [place] [address] Name: Kassi Wang RN Position: S RN Member Role: Primary Care Nurse Name: Isabell David RN Position: [facility] SN RN Member Role: Primary Care Nurse Care Team Related Persons Name: REYES OSHEA Address: [address] [address] Name: SHANIKA ZAVALA Address: home [address] [place] [address]
--- OUTSIDE RECORDS SUMMARY | 2023-11-18 06:40 | XMS_ITS | Continuity of Care Document ---
Author Organization [facility] Address [address] [place] [address]- Care Team Providers Care Clinical Administrative Coordinator Name Role Phone Maisha Lin DO Primary Care Physician [place] [facility] [place](s): 02/21/20 - 03/22/20 [facility] [address] [place] [address]- [facility] Allergies, Adverse Reactions, Alerts Substance Reaction Severity [...] GIVEN DATED: 11/18/11 8Admin Note: VIS GIVEN KYRGYZ 2011-04 9Admin Note: vis given vis date [...] 2 Refills, Maintenance, 03/16/20 9:01:00 EDT, Tablet, [facility], 168, cm, 03/16/20 8:08:00 EDT, Height, 71.6, kg, 02/11/20 4:57:00 EDT, Dry Weight Start Date: 03/16/20 Stop Date: 06/14/20 Status: Ordered docusate sodium 100 mg oral capsule 100 mg, 1, capsule, By Mouth, 2 times a day, # 28 capsule, Refills 3, Tot. Refills 3, Maintenance, 03/16/20 9:41:00 EDT, Route to Pharmacy Electronically, [facility], 168, cm, 03/16/20 8:08:00 EDT, Height, 71.6, kg, 02/11/20 4:57:00 E... Start Date: 03/16/20 Stop Date: 05/11/20 Status: Ordered doxepin 25 mg oral capsule 3 capsule = 75 mg, By Mouth, Daily at bedtime, Please fill today, # 90 capsule, 5 Refills, Maintenance, 03/16/20 9:49:00 EDT, Capsule, [facility], 168, cm, 03/16/20 8:08:00 EDT, Height, 71.6, kg, 02/11/20 4:57:00 EDT, Dry Weight Start Date: 03/16/20 Stop Date: 09/12/20 Status: Ordered ergocalciferol 42696 iu oral capsule 50,000 International_Units, 1, capsule, By Mouth, Every week, # 5 capsule, Refills 1, Tot. Refills 1, Maintenance, 03/16/20 9:45:00 EDT, Route to Pharmacy Electronically, [facility],168, cm, 03/16/20 8:08:00 EDT, Height, 71.6, kg, 09... Start Date: 03/16/20 Stop Date: 05/15/20 Status: Ordered ferrous gluconate 324 mg (37.5 mg elemental iron) oral tablet 1 tablet = 324 mg, By Mouth, 2 times a day, # 60 tablet, 1 Refills, Maintenance, 03/16/20 9:45:00 EDT, Tablet, [facility], 168, cm, 03/16/20 8:08:00 EDT, Height, 71.6, kg, 02/11/20 4:57:00 EDT, Dry Weight Start Date: 03/16/20 Stop Date: 05/15/20 Status: Ordered Genvoya oral tablet 1 tablet, By Mouth, Daily, with food, # 30 tablet, 2 Refills, Maintenance, 03/16/20 9:00:00 EDT, Tablet, [facility], 1 tablet By Mouth Daily,x30 days,Instr:with food, 168, cm, 03/16/20 8:08:00 EDT, Height, 71.6, kg, 02/11/20 4:57:00 E... Start Date: 03/16/20 Stop Date: 06/14/20 Status: Ordered influenza virus vaccine, inactivated adjuvanted preservative-free quadrivalent intramuscular susp 0.5 mL, Intramuscular, Once, # 0.5 mL, 0 Refills, Soft Stop, 03/16/20 8:57:00 EDT, Suspension, [facility] 0.5 mL Intramuscular Once, 168, cm, 03/16/20 8:08:00 EDT, Height, 71.6, kg, 02/11/20 4:57:00 EDT, Dry Weight Start Date: 03/16/20 Status: Ordered lisinopril 20 mg oral tablet 20 mg, 1, tablet, By Mouth, Daily, # 30 tablet, Refills 5, Tot. Refills 5, Maintenance, 03/16/20 9:46:00 EDT, Route to Pharmacy Electronically, [facility], Please buble pack, 168, cm, 03/16/20 8:08:00 EDT, Height, 71.6, kg, 02/11/20 4... Start Date: 03/16/20 Stop Date: 09/12/20 Status: Ordered Norvasc 5 mg oral tablet 5 mg, 1, tablet, By Mouth, Daily, # 30 tablet, Refills 5, Tot. Refills 5, Maintenance, 03/16/20 9:40:00 EDT, Route to Pharmacy Electronically, [facility], Please bubble pack, 168, cm, 03/16/20 8:08:00 EDT, Height, 71.6, kg, 02/11/20 4... Start Date: 03/16/20 Stop Date: 09/12/20 Status: Ordered valganciclovir 450 mg oral tablet 900 mg, 2, tablet, By Mouth, Daily, for 14 days, # 28 tablet, Refills 0, Tot. Refills 0, Acute 03/30/20 9:02:00 EST, 03/16/20 9:02:00 EDT, Route to Pharmacy Electronically, [facility], 168, cm, 03/16/20 8:08:00 EDT, Height, 71.6, kg,... Start Date: 03/16/20 Stop Date: 03/30/20 Status: Ordered Problem List Condition Effective Dates [...]
--- OUTSIDE RECORDS SUMMARY | 2023-11-18 06:40 | XMS_ITS | Continuity of Care Document ---
Author Organization [facility] Address [address] [place] [address]- Care Team Providers Care Loom Tuner Name Role Phone Maisha Lin DO Primary Care Physician [facility] [address] [address] Attending Physician: Sara Mendez CNM Admitting Physician: Sara Mendez CNM Referring Physician: Timmy MERCER, Daphney Heard Allergies, Adverse Reactions, Alerts Substance Reaction Severity [...] GIVEN DATED: 11/18/11 8Admin Note: VIS GIVEN CROATIAN 2011-04 9Admin Note: vis given vis date [...] 2 Refills, Maintenance, 05/18/19 11:15:00 EST, Tablet, [facility] Please deliver, 170, cm, 04/21/19 16:03:00 EST, Height Start Date: 05/18/19 Stop Date: 08/16/19 Status: Ordered doxepin 25 mg oral capsule 3 capsule = 75 mg, By Mouth, Daily at bedtime, Please fill today, # 90 capsule, 5 Refills, Maintenance, 05/18/19 11:13:00 EST, Capsule, [facility] 170, cm, 04/21/19 16:03:00 EST, Height Start Date: 05/18/19 Stop Date: 11/14/19 Status: Ordered ferrous gluconate 324 mg (37.5 mg elemental iron) oral tablet 1 tablet = 324 mg, By Mouth, 2 times a day, # 60 tablet, 1 Refills, Maintenance, 05/20/19 13:38:00 EST, Tablet, [facility]acy #[id number], 170, cm, 04/21/19 16:03:00 EST, [...] 2 Refills, Maintenance, 05/18/19 11:15:00 EST, Tablet, [facility] Please deliver, 1 tablet By Mouth Daily,x30 [...] 05/18/19 11:13:00 EST, Route to Pharmacy Electronically, [facility], Please fill today, 170, cm, 04/21/19 [...] 04/21/19 16:44:15 EST, Route to Pharmacy Electronically, [id number], [facility], 170, cm, 04/21/19 16:03:00 EST, Height Start Date: 04/21/19 Status: Ordered Vitamin D 13029 iu oral capsule 50,000 International_Units, 1, capsule, By Mouth, Every week, # 5 capsule, Refills 2, Tot. Refills 2, Maintenance, 05/18/19 11:14:00 EST, Route to Pharmacy Electronically, [facility],170, cm, 04/21/19 16:03:00 EST, Height Start [...]
--- OUTSIDE RECORDS SUMMARY | 2023-11-18 06:41 | XMS_ITS | Continuity of Care Document ---
Author Organization [facility] Address [address] [place] [address]- Care Team Providers Care Taper And Floater Name Role Phone Shala Shields MD Primary Care Physician Encounter [facility] [place] Date(s): 12/11/20 - 02/25/21 [facility] [address] [place] [address]- Attending Physician: Maisha Lin DO Admitting Physician: Maisha Lin DO Allergies, Adverse Reactions, Alerts Substance Reaction Severity Status azithromycin 1 Persistent Mild Active rifabutin Rash Persistent Moderate Active amLODIPine 2 Active 1Rash 2Had Lower extremity ankle swelling with 10mg. Immunizations Given and Recorded Vaccine Date Status Refusal Reason SARS-CoV-2 (COVID-19) mRNA BNT-162b2 vac 02/15/21 Given influenza virus vaccine, inactivated 03/16/20 Give n [...] GIVEN DATED: 11/18/11 8Admin Note: VIS GIVEN TAMAZIGHT 2011-04 9Admin Note: vis given vis date 12/26/2009 10Admin Note: Prevnar 11Admin Note: VIS GIVEN VIS DATE 03/26 Medications Bactrim DS 800 mg-160 mg oral tablet 1 tablet, By Mouth, Daily, # 30 tablet, 5 Refills, Maintenance, 01/25/21 10:04:00 EDT, Tablet, [facility], Partial fill upon patient request if the prescription is for a schedule II opioid drug., 1 tablet By Mouth Daily, 167.6, cm, ... Start Date: 01/25/21 Status: Ordered Blood Pressure [...] 02/08/21 20:01:00 EDT, Route to Pharmacy Electronically, [facility]/pharmacy #[id number], Partial fill upon patient request if the prescript... Start Date: 02/08/21 Status: Ordered darunavir 800 mg oral tablet 1 tablet = 800 mg, By Mouth, Daily, # 30 tablet, 5 Refills, Maintenance, 01/25/21 10:06:00 EDT, Tablet, [facility], Partial fill upon patient request if the prescription is for a schedule II opioid drug., 167.6, cm, 01/23/21 18:14:00... Start Date: 01/25/21 Status: Ordered ferrous sulfate 325 mg oral enteric coated tablet 325 mg, 1, tablet, By Mouth, Daily, # 30 tablet, Refills 1, Tot. Refills 1, Maintenance, 01/06/21 18:35:00 EDT, Route to Pharmacy Electronically, [facility], Partial fill upon patient request if the prescription is for a schedule II o... Start Date: 01/06/21 Status: Ordered Genvoya oral tablet 1 tablet, By Mouth, Daily, with food, # 30 tablet, 5 Refills, Maintenance, 01/25/21 9:51:00 EDT, Tablet, [facility], Partial fill upon patient request if the prescription is for a schedule II opioid drug., 1 tablet By Mouth Daily,Inst... Start Date: 01/25/21 Status: Ordered lisinopril 20 mg oral tablet 20 mg, 1, tablet, By Mouth, Daily, # 30 tablet, Refills 4, Tot. Refills 4, Maintenance, 02/08/21 19:30:00 EDT, Route to Pharmacy Electronically, [facility]/pharmacy #[id number], increase dose, 167.6, cm, 02/08/2118:40:00 EDT, Height, 69.3, kg, 02/02/21 13:00:00 E... Start Date: 02/08/21 Status: Ordered MiraLax oral powder for reconstitution = 17 Gm, By Mouth, Daily, PRN Constipation, dissolve in water before taking, # 527 Gm, 11 Refills, Maintenance, 02/08/21 20:01:00 EDT, REC Powder, [facility]/pharmacy #[id number], Partial fill upon patient request if the prescription is for a schedule II opioid dr... Start Date: 02/08/21 Status: Ordered mirtazapine 15 mg oral tablet 1 tablet = 15 mg, By Mouth, Daily at bedtime, # 30 tablet, 4 Refills, Maintenance, 02/19/21 16:53:00 EDT, Tablet, [facility], increase dose, 167.6, cm, 02/19/21 16:01:00 EDT, Height,69.3, kg, 02/02/21 13:00:00 EDT, Dry Weight Start Date: 02/19/21 Stop Date: 07/19/21 Status: Ordered [facility] Refills 0, Maintenance, Calcium/Mg/ Zinc 1 [...] 02/02/21 14:41:00 EDT, Route to Pharmacy Electronically, [facility]/pharmacy #[id number], 167.6, cm, 02/02/21 13:00:00 EDT, Height, [...] 10:56:00 EDT, 12/19/20 10:56:00 EDT, REC Powder, [facility]/pharmacy #[id number], Partial fill upon patient request... Start Date: 12/19/20 Stop Date: 12/16/21 Status: Ordered Tylenol 325 mg oral tablet 650 mg, 2, tablet, By Mouth, Every 4 hours, PRN, # 24 tablet, Refills 1, Tot. Refills 1, Maintenance, for fever, 02/02/21 14:41:00 EDT, Route to Pharmacy Electronically, [facility]/pharmacy #[id number], Partial fill upon patient request if the [...]
--- OUTSIDE RECORDS SUMMARY | 2023-11-18 06:41 | XMS_ITS | Continuity of Care Document ---
Author Organization [facility] Address [address] [place] [address]- Care Team Providers Care Mud Temperer Name Role Phone Maisha Lin DO Primary Care Physician Encounter [facility] Date(s): 12/31/19 - 01/30/20 [facility] [address] [place] [address]- [facility] Allergies, Adverse Reactions, Alerts Substance [...] GIVEN DATED: 11/18/11 8Admin Note: VIS GIVEN BOLIVIAN 2010- 9Admin Note: vis given vis date [...] EST, Height Start Date: 04/21/19 Status: Ordered darunavir 800 mg oral tablet 1 tablet = 800 mg, By Mouth, Daily, # 30 tablet, 2 Refills, Maintenance, 05/18/19 11:15:00 EST, Tablet, [facility]., Please deliver, 170, cm, 04/21/19 16:03:00 EST, [...] 1 Refills, Maintenance, 05/20/19 13:38:00 EST, Tablet, [facility]/pharmacy #[id number], 170, cm, 04/21/19 16:03:00 EST, Height [...] 2 Refills, Maintenance, 05/18/19 11:15:00 EST, Tablet, [facility], Please deliver, 1 tablet By Mouth [...] 05/18/19 11:13:00 EST, Route to Pharmacy Electronically, [facility], Please fill today, 170, cm, 04/21/19 [...] 04/21/19 16:44:15 EST, Route to Pharmacy Electronically, [id number], [facility], 170, cm, 04/21/19 16:03:00 EST, Height Start Date: 04/21/19 Status: Ordered Vitamin D 55499 iu oral capsule 50,000 International_Units, 1, capsule, By Mouth, Every week, # 5 capsule, Refills 2, Tot. Refills 2, Maintenance, 05/18/19 11:14:00 EST, Route to Pharmacy Electronically, [facility]170, cm, 04/21/19 16:03:00 EST, Height Start Date: [...]
--- OUTSIDE RECORDS SUMMARY | 2023-11-18 06:41 | XMS_ITS | Continuity of Care Document ---
Author Organization [facility] Address [address] [place] [address]- Care Team Providers Care Offline Cutter Name Role Phone Maisha Lin DO Primary Care Physician Encounter [facility] [place] Date(s): 04/19/20 - 05/19/20 [facility] [address] [place], [place] [address] Attending Physician: Jairo Ochoa Admitting Physician: Jairo [...] GIVEN DATED: 11/18/11 8Admin Note: VIS GIVEN GREEK 2011-04 9Admin Note: vis given vis date 12/26/2009 10Admin Note: Prevnar 11Admin Note: VIS GIVEN VIS DATE 03/26 Medications Bactrim DS 800 mg-160 mg oral tablet 1 tablet, By Mouth, Daily, for 30 days, # 30 tablet, 6 Refills, Acute 10/12/20 9:47:00 EDT, 03/16/20 9:47:00 EDT, Tablet, [facility], 1 tablet By Mouth Daily,x30 days, 168, cm, 03/16/20 8:08:00 EDT, Height, 71.6, kg, 02/11/20 4:57:00... Start Date: 03/16/20 Stop Date: 10/12/20 Status: Ordered darunavir 800 mg oral tablet 1 tablet = 800 mg, By Mouth, Daily, # 30 tablet, 2 Refills, Maintenance, 03/16/20 9:01:00 EDT, Tablet, [facility], 168, cm, 03/16/20 8:08:00 EDT, Height, 71.6, kg, 02/11/20 4:57:00 EDT, Dry Weight Start Date: 03/16/20 Stop Date: 06/14/20 Status: Ordered docusate sodium 100 mg oral capsule 100 mg, 1, capsule, By Mouth, 2 times a day, # 28 capsule, Refills 3, Tot. Refills 3, Maintenance, 03/16/20 9:41:00 EDT, Route to Pharmacy Electronically, [facility], 168, cm, 03/16/20 8:08:00 EDT, Height, 71.6, kg, 02/11/20 4:57:00 E... Start Date: 03/16/20 Stop Date: 05/11/20 Status: Ordered doxepin 25 mg oral capsule 3 capsule = 75 mg, By Mouth, Daily at bedtime, Please fill today, # 90 capsule, 5 Refills, Maintenance, 03/16/20 9:49:00 EDT, Capsule, [facility], 168, cm, 03/16/20 8:08:00 EDT, Height, 71.6, kg, 02/11/20 4:57:00 EDT, Dry Weight Start Date: 03/16/20 Stop Date: 09/12/20 Status: Ordered ferrous sulfate 325 mg oral enteric coated tablet 325 mg, 1, tablet, By Mouth, Daily, # 30 tablet, Refills 5, Tot. Refills 5, Maintenance, 04/24/20 11:06:00 EST, Route to Pharmacy Electronically, [facility]/pharmacy #[id number], Partial fill upon patient requestif the prescription is for a schedule II opioid sudhir... Start Date: 04/24/20 Stop Date: 10/21/20 Status: Ordered Genvoya oral tablet 1 tablet, By Mouth, Daily, with food, # 30 tablet, 2 Refills, Maintenance, 03/16/20 9:00:00 EDT, Tablet, [facility], 1 tablet By Mouth Daily,x30 days,Instr:with food, 168, cm, 03/16/20 8:08:00 EDT, Height, 71.6, kg, 02/11/20 4:57:00 E... Start Date: 03/16/20 Stop Date: 06/14/20 Status: Ordered influenza virus vaccine, inactivated adjuvanted preservative-free quadrivalent intramuscular susp 0.5 mL, Intramuscular, Once, # 0.5 mL, 0 Refills, Soft Stop, 03/16/20 8:57:00 EDT, Suspension, [facility] 0.5 mL Intramuscular Once, 168, cm, 03/16/20 8:08:00 EDT, Height, 71.6, kg, 02/11/20 4:57:00 EDT, Dry Weight Start Date: 03/16/20 Status: Ordered lisinopril 20 mg oral tablet 20 mg, 1, tablet, By Mouth, Daily, # 30 tablet, Refills 5, Tot. Refills 5, Maintenance, 03/16/20 9:46:00 EDT, Route to Pharmacy Electronically, [facility], Please buble pack, 168, cm, [...]
--- OUTSIDE RECORDS SUMMARY | 2023-11-18 06:41 | XMS_ITS | Continuity of Care Document ---
Author Organization [facility] Address [address] [place] [address]- Care Team Providers Care Braider Setter Name Role Phone Shala Shields MD Primary Care Physician Encounter [facility] [place] Date(s): 12/11/20 - 12/15/[address] [address]- Encounter Diagnosis AIDS(Final) - 12/11/20 Pain with swallowing(Final) - 12/11/20 Discharge Disposition: A-D/C Home Attending Physician: Josselin Sparrow MD Admitting Physician: Leah Cortez MD Referring Physician: Not on Staff, Referring MD Allergies, Adverse Reactions, Alerts Substance Reaction [...] GIVEN DATED: 11/18/11 8Admin Note: VIS GIVEN CONGOLESE 2011-04 9Admin Note: vis given vis date 12/26/2009 10Admin Note: Prevnar 11Admin Note: VIS GIVEN VIS DATE 03/26 Medications aluminum hydroxide/magnesium hydroxide/simethicone 200 mg-200 mg-20 mg/5 mL oral suspension 10 mL, By Mouth, 4 times a day, PRN Dyspepsia, for 7 days, # 150 mL, 0 Refills, Acute 12/22/20 10:43:00 EDT, 12/15/20 10:43:00 EDT, Suspension, [facility], Partial fill upon patient request if the prescription is for a schedule II opioid... Start Date: 12/15/20 Stop Date: 12/22/20 Status: Ordered Carafate 1 gm/10 ml oral suspension 10 mL = 1 Gm, By Mouth, 3 times a day before meals and bedtime, # 1,120 mL, 0 Refills, Maintenance,12/15/20 11:09:00 EDT, [facility], replaced tablets by suspension, 166, cm, 12/15/20 7:52:00 EDT, Height, 66.9, kg, 12/12/20 19:05:00 EDT... Start Date: 12/15/20 Stop Date: 01/12/21 Status: Ordered Dilaudid 2 mg oral tablet 1 tablet = 2 mg, By Mouth, 2 times a day, PRN as needed for pain, for 3 days, # 6 tablet, 0 Refills, Acute 12/18/20 10:49:00 EDT, 12/15/20 10:49:00 EDT, Tablet, [facility], Partial fillupon patient request if the prescription is for a s... Start Date: 12/15/20 Stop Date: 12/18/20 Status: Ordered Dilaudid 2 mg oral tablet 2 mg, Tablet, By Mouth, Every 4 hours, PRN for Pain , Moderate, Routine, 12/14/20 9:56:00 EDT Start Date: 12/14/20 Stop Date: 12/15/20 Status: Discontinued lisinopril 10 mg oral tablet 10 mg, 1, tablet, By Mouth, Daily, # 30 tablet, Refills 0, Tot. Refills 0, Maintenance, 12/15/20 10:44:00 EDT, Route to Pharmacy Electronically, [facility], Partial fill upon patient request if the prescription is for a schedule II opioi... Start Date: 12/15/20 Stop Date: 01/14/21 Status: Ordered lisinopril 10 mg oral tablet 20 mg, Tablet, By Mouth, 12/15/20 9:00:00 EDT Start Date: 12/15/20 Stop Date: 12/15/20 Status: Completed mirtazapine 15 mg oral tablet 0.5 tablet = 7.5 mg, By Mouth, Daily at bedtime, # 15 tablet, 0 Refills, Maintenance, 12/15/20 10:44:00 EDT, Tablet, [facility], Partial fill upon patient request if the prescription isfor a schedule II opioid drug., 166, cm, 12/15/20 7... Start Date: 12/15/20 Stop Date: 01/14/21 Status: Ordered Norvasc 10 mg oral tablet 10 mg, 1, tablet, By Mouth, Daily, # 30 tablet, Refills 0, Tot. Refills 0, Maintenance, 12/15/20 10:44:00 EDT, Route to Pharmacy Electronically, [facility], Partial fill upon patient request if the prescription is for a schedule II opioi... Start Date: 12/15/20 Stop Date: 01/14/21 Status: Ordered Norvasc 10 mg oral tablet 10 mg, Tablet, By Mouth, 12/15/20 9:00:00 EDT Start Date: 12/15/20 Stop Date: 12/15/20 Status: Completed pantoprazole 40 mg oral delayed release tablet = 40 mg, By Mouth, 2 times a day, # 60 tablet, 0 Refills, Maintenance, 12/15/20 11:05:00 EDT, EC Tablet, please change q d script to BID, 166, cm, 12/15/20 7:52:00 EDT, Height, 66.9, kg, 12/12/20 19:05:00 EDT, Dry Weight Start Date: 12/15/20 Stop Date: 01/14/21 Status: Ordered Senna 8.6 mg oral tablet 17.2 mg, 2, tablet, By Mouth, Daily, for 10 days, # 20 tablet, Refills 0, Tot. Refills 0, Acute, 12/25/20 10:46:00 EDT, 12/15/20 10:46:00 EDT, Route to Pharmacy Electronically, [facility] Tablet, Partial fill upon patient request if the... Start Date: 12/15/20 Stop Date: 12/25/20 Status: Ordered sulfamethoxazole-trimethoprim 800 mg-160 mg oral tablet = 160 mg, By Mouth, Daily, for 30 days, # 30 tablet, 0 Refills, Acute 01/14/21 10:48:00 EDT, 12/15/20 10:48:00 EDT, Tablet, [facility], Partial fill upon patient [...] 12/15/20 10:46:00 EDT, Route to Pharmacy Electronically, [facility], Partial fill upon patient request if the prescript... Start Date: 12/15/20 Stop Date: 12/29/20 Status: Ordered Tylenol 325 mg oral tablet 650 mg, 2, tablet, By Mouth, Every 6 hours, PRN, for 7 days, # 24 tablet, Refills 0, Tot. Refills 0, Acute 12/22/20 10:43:00 EDT, Pain , Moderate, 12/15/20 10:43:00 EDT, Route to Pharmacy Electronically, [facility], Partial fill upon pat... Start Date: 12/15/20 Stop Date: 12/22/20 Status: Ordered valganciclovir 450 mg oral tablet 900 mg, 2, tablet, By Mouth, 2 times a day, for 30 days, # 120 tablet, Refills 0, Tot. Refills 0, Acute 01/14/21 10:48:00 EDT, 12/15/20 10:48:00 EDT, Route to Pharmacy Electronically, [facility], Partial fill upon patient [...] of weight loss and requiring IV fluids Procedures Procedure Date Related Diagnosis Body Site Status EGD - Esophagogastroduodenoscopy 12/12/20 Completed Results Orders for Microbiology Reports Name Date Blood Culture for AFB (AFB Blood Culture ) 12/12/20 Blood Culture 12/11/20 Blood Culture #2 12/11/20 Microbiology Reports TEST:Blood Culture For AFB STATUS:Unauthenticated BODY SITE: SOURCE:Blood COLLECTED DATE/TIME:12/12/20 10:46 AM Blood Culture For AFB SPECIMEN DESCRIPTION : BLOOD SPECIAL REQUESTS : NONE CULTURE : SPECIMEN SENT TO [facility], [place], [place] REPORT STATUS : PRELIMINARY REPORT TEST:Blood Culture, Second Order STATUS:Unauthenticated BODY SITE: SOURCE:Blood COLLECTED DATE/TIME:12/11/20 5:13 PM Blood Culture, Second Order SPECIMEN DESCRIPTION : BLOOD R AC SPECIAL REQUESTS : NONE CULTURE : NO GROWTH 4 DAYS REPORT STATUS : PRELIMINARY REPORT TEST:Blood Culture STATUS:Unauthenticated BODY SITE: SOURCE:Blood COLLECTED DATE/TIME:12/11/20 5:05 PM Blood Culture SPECIMEN DESCRIPTION : BLOOD LT AC SPECIAL REQUESTS : NONE CULTURE : NO GROWTH 4 DAYS REPORT STATUS : PRELIMINARY REPORT Radiology Reports * Exam Date Time Procedure Performing Provider Status 12/11/20 5:37 PM Chest 2 Views Frontal and Lat Tanisha Gayle; Auth (Verified) Notes: (Chest 2 Views Frontal and Lat) Reason For Exam: Shortness of Breath, Fever;Other: RESULT: Chest 2 Views Frontal and Lat Chest 2 Views Frontal and Lat HX OF PRESENT ILLNESS: Patient with known esophageal ulcers. Worsening pain, difficulty swallowing and managing secretions. Sent to ED for airway concern.; Reason: Shortness of Breath, Fever; Clinical Question(s): Pneumonia / Pneumonia COMPARISON: 02/12/2020 FINDINGS: LINES AND TUBES: None. LUNGS AND PLEURA: Clear lungs. Normal pulmonary vascularity. No pleural effusion. No pneumothorax. HEART, MEDIASTINUM AND ROM: Heart is normal in size. Normal mediastinal and hilar contour. BONES AND SOFT TISSUES: No acute abnormality. IMPRESSION: No evidence of acute abnormality. WSN: [id number] Ordering Physician: Chandni Tran Dictated By: Mic Garcia MD Dictated Date/Time: 12/11/20 5:38 pm Reviewed By: Mic Garcia MD Signed By: Mic Garcia MD Signed Date/Time: 12/11/20 5:38 pm Transcribed By: SAMUEL Transcribed Date/Time: 12/11/20 5:38 pm Vital Signs Most recent to oldest [Reference Range]: 1 2 3 Height 166 cm (12/15/20 7:52 AM) 166 cm (12/15/20 12:14 AM) 166 cm (12/14/20 8:02 PM) Weight 66.9 kg (12/12/20 7:01 PM) 66.9 kg (12/12/20 6:54 PM) 63.1 kg (12/12/20 1:26 PM) Oxygen Saturation [94-100 %] 100 % (12/15/20 7:52 AM) 99 % (12/15/20 12:14 AM) 100 % (12/14/20 8:02 PM) Pulse Rate [55-90 bpm] 121 bpm *H* (12/15/20 7:52 AM) 117 bpm *H* (12/15/20 12:14 AM) 62 bpm (12/14/20 8:02 PM) Body Mass Index [18.5-24.99] 24.28 (12/12/20 7:01 PM) 24.28 (12/12/20 6:54 PM) 22.9 (12/12/20 1:26 PM) Blood Pressure [90-138/55-84 mm Hg] 137/97mm Hg (12/15/20 8:51 AM) 137/97mm Hg (12/15/20 8:51 AM) 137/97mm Hg (12/15/20 7:52 AM) Respiratory Rate [16-30 br/min] 18 br/min (12/15/20 8:52 AM) 20 br/min (12/15/20 7:52 AM) 20 br/min (12/15/20 5:42 AM) Temperature [96.8-100.4 DegF] 99.1 DegF (12/15/20 7:52 AM) 98.7 DegF (12/15/20 12:14 AM) 98.7 DegF (12/14/20 8:02 PM) Mode of Delivery (Oxygen) Room air (12/15/20 7:52 AM) Room air (12/15/20 12:14 AM) Room air (12/14/20 8:02 PM) Blood pressure sites Arm, right (12/15/20 7:52 AM) Arm, right (12/15/20 12:14 AM) Arm, right (12/14/20 8:02 PM) Temperature Route Oral (12/15/20 7:52 AM) Oral (12/15/20 12:14 AM) Oral (12/14/20 8:02 PM) Dry Weight 66.9 kg (12/12/20 7:01 PM) Weight Obtained Via Bed scale (12/12/20 6:54 PM) Social History Social History Type Response Smoking Status Never smoker; Tobacc o user in household: No entered on: 01/26/15 Sex
--- OUTSIDE RECORDS SUMMARY | 2023-11-18 06:41 | XMS_ITS | Continuity of Care Document ---
Author Organization [facility] y Address [address] [place] [address]- Care Team Providers Care Hose Seamer Name Role Phone Maisha Lin DO Primary Care Physician [place] [facility] [id number] Date(s): 12/31/19 - 02/02/20 [facility] [address] [place] [address]- Attending Physician: Darío Diehl MD Admitting Physician: [...] DATED: 11/18/11 8Admin Note: VIS GIVEN BOLIVIAN 2011-04 9Admin Note: vis given vis date [...] 2 Refills, Maintenance, 05/18/19 11:15:00 EST, Tablet, [facility] Please deliver, 170, cm, 04/21/19 16:03:00 EST, Height Start Date: 05/18/19 Stop Date: 08/16/19 Status: Ordered doxepin 25 mg oral capsule 3 capsule = 75 mg, By Mouth, Daily at bedtime, Please fill today, # 90 capsule, 5 Refills, Maintenance, 05/18/19 11:13:00 EST, Capsule, [facility] 170, cm, 04/21/19 16:03:00 EST, Height Start Date: 05/18/19 Stop Date: 11/14/19 Status: Ordered ferrous gluconate 324 mg (37.5 mg elemental iron) oral tablet 1 tablet = 324 mg, By Mouth, 2 times a day, # 60 tablet, 1 Refills, Maintenance, 05/20/19 13:38:00 EST, Tablet, [facility]/pharmacy #[id number], 170, cm, 04/21/19 16:03:00 [...] 2 Refills, Maintenance, 05/18/19 11:15:00 EST, Tablet, [facility], Please deliver, 1 tablet By Mouth Daily,x30 [...] 05/18/19 11:13:00 EST, Route to Pharmacy Electronically, [facility], Please fill today, 170, cm, 04/21/19 16:03:00 [...] 04/21/19 16:44:15 EST, Route to Pharmacy Electronically, [id number], [facility] 170, cm, 04/21/19 16:03:00 EST, Height Start Date: 04/21/19 Status: Ordered Vitamin D 15398 iu oral capsule 50,000 International_Units, 1, capsule, By Mouth, Every week, # 5 capsule, Refills 2, Tot. Refills 2, Maintenance, 05/18/19 11:14:00 EST, Route to Pharmacy Electronically, [facility],170, cm, 04/21/19 16:03:00 EST, Height Start Date: [...]
--- OUTSIDE RECORDS SUMMARY | 2023-11-18 06:41 | XMS_ITS | Continuity of Care Document ---
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 [address] [place] [address]- Attending Physician: Darío Diehl MD Admitting Physician: [...] 5 Refills, Maintenance, 01/25/21 10:04:00 EDT, Tablet, [facility], Partial fill upon patient request [...] mL, 11 Refills, Maintenance, 02/02/21 17:36:00 EDT, [facility], replaced tablets by suspension, 167.6, cm, 02/02/21 13:00:00 EDT, Height, 69.3, kg, 02/02/21 13:00... Start Date: 02/02/21 Stop Date: 01/04/22 Status: Ordered Colace sodium 100 mg oral capsule 100 mg, 1, capsule, By Mouth, 2 times a day, PRN, # 60 capsule, Refills 11, Tot. Refills 11, Maintenance, for constipation, 02/08/21 20:01:00 EDT, Route to Pharmacy Electronically, [facility]/pharmacy #[id number], Partial fill upon patient request if the prescript... Start Date: 02/08/21 Status: Ordered darunavir 800 mg oral tablet 1 tablet = 800 mg, By Mouth, Daily, with food, pls get labs done for more refills, orders in!, # 30tablet, 0 Refills, Maintenance, 09/13/21 15:33:00 EDT, Tablet, [facility], Partialfill upon patient request if the prescription is fo... Start Date: 09/13/21 Status: Ordered ferrous sulfate 325 mg oral enteric coated tablet 325 mg, 1, tablet, By Mouth, Daily, # 30 tablet, Refills 11, Tot. Refills 11, Maintenance, 03/02/2112:59:00 EDT, Route to Pharmacy Electronically, [facility], Partial fill upon patient request if the prescription is for a schedule II... Start Date: 03/02/21 Status: Ordered Genvoya oral tablet 1 tablet, By Mouth, Daily, with food, pls get labs done for more refills, orders in!, # 30 tablet, 0 Refills, Maintenance, 09/13/21 15:33:00 EDT, Tablet, [facility], Partial fill upon patient request if the prescription is for a sched... Start Date: 09/13/21 Status: Ordered hydrochlorothiazide-lisinopril 25 mg-20 mg oral tablet 1 tablet, By Mouth, Daily, # 30 tablet, 4 Refills, Maintenance, 06/28/21 16:48:00 EST, Tablet, [facility], d/c lisinopril 40 mg - change to combo med, 1 tablet By Mouth Daily, 167.6,cm, 02/19/21 16:01:00 EDT, Height, 69.3, kg, ... Start Date: 06/28/21 Status: Ordered MiraLax oral powder for reconstitution = 17 Gm, By Mouth, Daily, PRN Constipation, dissolve in water before taking, # 527 Gm, 11 Refills, Maintenance, 02/08/21 20:01:00 EDT, REC Powder, [facility]/pharmacy #[id number], Partial fill upon patient request if the prescription is for a schedule II opioid dr... Start Date: 02/08/21 Status: Ordered mirtazapine 15 mg oral tablet 1 tablet = 15 mg, By Mouth, Daily at bedtime, # 30 tablet, 4 Refills, Maintenance, 02/19/21 16:53:00 EDT, Tablet, [facility], increase dose, 167.6, cm, 02/19/21 16:01:00 EDT, Height,69.3, kg, 02/02/21 13:00:00 EDT, Dry Weight Start Date: 02/19/21 Stop Date: 07/19/21 Status: [facility] Ref[facility], Maintenance, Calcium/Mg/ Zinc 1 [...] 11 Refills, Maintenance, 03/09/21 16:13:00 EDT, Tablet, [facility], Partial fill upon patient [...] to Pharmacy Electronically, [facility]/pharmacy #[id number], Partial fill upon patient request if the [...]
--- OUTSIDE RECORDS SUMMARY | 2023-11-18 06:41 | XMS_ITS | Continuity of Care Document ---
Author Organization [facility] Address [address] [place] [address]- Care Team Providers Care Auto Tester Name Role Phone Timmy MERCER, Daphney Heard Primary Care Physician Encounter [id number] Date(s): 08/02/19 - 08/12/[address] [address]- [facility] Attending Physician: Jairo Ochoa Admitting Physician: AdmtrJairo Referring Physician: Admtr ArPj Allergies, Adverse Reactions, Alerts Substance Reaction Severity [...] 2 Refills, Maintenance, 05/18/19 11:15:00 EST, Tablet, [facility] Please deliver, 170, cm, 04/21/19 16:03:00 EST, Height Start Date: 05/18/19 Stop Date: 08/16/19 Status: Ordered doxepin 25 mg oral capsule 3 capsule = 75 mg, By Mouth, Daily at bedtime, Please fill today, # 90 capsule, 5 Refills, Maintenance, 05/18/19 11:13:00 EST, Capsule, [facility] 170, cm, 04/21/19 16:03:00 EST, Height Start Date: 05/18/19 Stop Date: 11/14/19 Status: Ordered ferrous gluconate 324 mg (37.5 mg elemental iron) oral tablet 1 tablet = 324 mg, By Mouth, 2 times a day, # 60 tablet, 1 Refills, Maintenance, 05/20/19 13:38:00 EST, Tablet, [facility]/pharmacy #[id number], 170, cm, 04/21/19 16:03:00 EST, Height [...] 2 Refills, Maintenance, 05/18/19 11:15:00 EST, Tablet, [facility], Please deliver, 1 tablet By Mouth Daily,x30 [...] 05/18/19 11:13:00 EST, Route to Pharmacy Electronically, [facility], Please fill today, 170, cm, 04/21/19 16:03:00 [...] 04/21/19 16:44:15 EST, Route to Pharmacy Electronically, [id number], [facility], 170, cm, 04/21/19 16:03:00 EST, Height Start Date: 04/21/19 Status: Ordered Vitamin D 28501 iu oral capsule 50,000 International_Units, 1, capsule, By Mouth, Every week, # 5 capsule, Refills 2, Tot. Refills 2, Maintenance, 05/18/19 11:14:00 EST, Route to Pharmacy Electronically, [facility]170, cm, 04/21/19 16:03:00 EST, Height Start [...]
--- OUTSIDE RECORDS SUMMARY | 2023-11-18 06:41 | XMS_ITS | Continuity of Care Document ---
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 Start Date: 02/20/23 Status: Ordered Bactrim 400 mg-80 mg oral tablet 1 tablet, By Mouth, Daily, BUBBLE PACK, # 90 tablet, 1 Refills, Maintenance, 02/20/23 13:37:00 EDT,Tablet, [facility], Partial fill upon patient request if [...] 02/20/23 13:39:00 EDT, Route to Pharmacy Electronically, [facility], Partial fill upon patient request if the prescri... Start Date: 02/20/23 Status: Ordered darunavir 800 mg oral tablet 1 tablet = 800 mg, By Mouth, Daily, with food, please get labs before refills; BUBBLE PACK, # 90 tablet, 1 Refills, Maintenance, 04/25/23 11:55:00 EST, Tablet, [facility], Partial fill upon patient request if the prescription is for a... Start Date: 04/25/23 Status: Ordered diclofenac 1% topical gel 1 application, Topically, 4 times a day, # 100 Gm, 11 Refills, Maintenance, 09/18/22 15:52:00 EDT, Gel, [facility], Partial fill upon patient request if the prescription is for a schedule II opioid drug., 167.6, cm, 07/04/22 16:00:00... Start Date: 09/18/22 Status: Ordered duloxetine 60 mg oral enteric coated capsule 1 capsule = 60 mg, By Mouth, Daily, start with duloxetine 30mg daily x 2 weeks then duloxetine 60mgdaily;, # 30 capsule, 4 Refills, Maintenance, 07/03/23 19:03:00 EST, EC Capsule, [facility], Partial fill upon patient request if the... Start Date: 07/03/23 Status: Ordered ferrous sulfate 325 mg oral enteric coated tablet 325 mg, 1, tablet, By Mouth, Every other day, BUBBLE PACK, # 45 tablet, Refills 3, Tot. Refills 3, Maintenance, 02/20/23 13:37:00 EDT, Route to Pharmacy Electronically, [facility], Partial fill upon patient request if the prescription is for... Start Date: 02/20/23 Status: Ordered gabapentin 100 mg oral capsule 100 mg, 1, capsule, By Mouth, Daily at bedtime, PRN, # 30 capsule, Refills 4, Tot. Refills 4, Maintenance, Anxiety, 08/05/23 10:19:00 EDT, Route to Pharmacy Electronically, [facility], Partial fill upon patient request if the prescrip... Start Date: 08/05/23 Stop Date: 08/12/23 Status: Ordered Genvoya oral tablet 1 tablet, By Mouth, Daily, with food, please get labs before refills; BUBBLE PACK, # 90 tablet, 1 Refills, Maintenance, 04/25/23 11:55:00 EST, Tablet, [facility], Partial fill upon patient request if the prescription is for a schedule... Start Date: 04/25/23 Status: Ordered hydrochlorothiazide-olmesartan 25 mg-40 mg oral tablet 0.5 tablet, By Mouth, Daily, # 15 tablet, 4 Refills, Maintenance, 08/07/23 15:23:00 EDT, Tablet, [facility]/pharmacy #[id number], decrease dose, 0.5 tablet By Mouth Daily, 167.6, cm, 08/05/23 9:50:00 EDT, Height Start Date: 08/07/23 Status: Ordered Lidoderm 5% film 2 patch, Topically, Daily, remove patches after 12 hours; 2 patches to pain areas; can cut patches in half; do not excede 2 patches., # 60 patch, 4 Refills, Maintenance, 03/06/23 15:42:00 EDT, [facility]/pharmacy #[id number], Partial fill upon patient request if t... Start Date: 03/06/23 Stop Date: 08/03/23 Status: Ordered [facility] Rx Refills 0, Maintenance, Calcium/Mg/ Zinc 1 tablet daily, 01/23/21 17:47:00 EDT, Supply Start Date: 01/23/21 Status: Ordered naltrexone 50 mg oral tablet 1 tablet = 50 mg, By Mouth, Daily, # 30 tablet, 4 Refills, Maintenance, 07/28/23 16:46:00 EDT, Tablet, [facility]/pharmacy #[id number], Partial fill upon patient request if [...] Refills, Maintenance, 07/03/23 18:52:00 EST, REC Powder, [facility], Partial fill upon patient request if the prescription is for a schedule II opioid drug., 17 Gm... Start Date: 07/03/23 Stop Date: 10/01/23 Status: Ordered Thera oral tablet 1 tablet, By Mouth, Daily, BUBBLE PACK, # 90 tablet, 3 Refills, Maintenance, 02/20/23 13:37:00 EDT,Tablet, [facility], Partial fill upon patient request if the prescription is for a schedule II opioid drug., 1 tablet By Mouth Daily,Instr:BU... Start Date: 02/20/23 Status: Ordered Vitamin D3 1000 intl units oral capsule 1 capsule = 25 mcg, By Mouth, Daily, # 90 capsule, 3 Refills, Maintenance, 07/03/23 19:05:00 EST, Capsule, [facility], Partial fill upon patient request [...] pubis OA, left Confirmed Active *Catalina Diaz Science Writer-[facility] [phone] Confirmed Active Mild recurrent major depression Confirmed Active Rosacea Confirmed Active Urinary incontinence Confirmed Active Social History Social History Type Response Tobacco Use: Rolls weed in l eaf tabacco . Sex Patient Care team information Care Team Personnel Name: Jaky Nicole RN Position: [facility] RN Member Role: Primary Care Nurse Name: Rhea Brooks Position: S RN Member Role: Primary Care Nurse Name: Shala Shields MD Position: S Physician - Primary Care Member Role: PCP Address: Address: [address] [place] [address] Adult [address] Name: Kassi Wang RN Position: [facility] RN Member Role: Primary Care Nurse Name: Isabell David RN Position: [facility] Office Staff Member Role: Primary Care Nurse Care Team Related Persons Name: OSHEA REYES Address: home [address] [address] Name: SHANIKA ZAVALA Address: home [address] [place] [address]
--- OUTSIDE RECORDS SUMMARY | 2023-11-18 06:41 | XMS_ITS | Continuity of Care Document ---
Author Organization 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 Name Role Phone Cornelius REDDY, Shala Kuo Primary Care Physician [facility] Date(s): 06/08/21 - 07/21/21 [facility] [address] [place], [place] [address] Attending Physician: Darío Diehl MD Admitting Physician: [...] GIVEN DATED: 11/18/11 8Admin Note: VIS GIVEN TUVALUAN 2011-04 9Admin Note: vis given vis date 12/26/2009 10Admin Note: Prevnar 11Admin Note: VIS GIVEN VIS DATE 03/26 Medications Bactrim DS 800 mg-160 mg oral tablet 1 tablet, By Mouth, Daily, # 30 tablet, 5 Refills, Maintenance, 01/25/21 10:04:00 EDT, Tablet, [facility], Partial fill upon patient request [...] mL, 11 Refills, Maintenance, 02/02/21 17:36:00 EDT, [facility], replaced tablets by suspension, 167.6, cm, 02/02/21 13:00:00 EDT, Height, 69.3, kg, 02/02/21 13:00... Start Date: 02/02/21 Stop Date: 01/04/22 Status: Ordered Colace sodium 100 mg oral capsule 100 mg, 1, capsule, By Mouth, 2 times a day, PRN, # 60 capsule, Refills 11, Tot. Refills 11, Maintenance, for constipation, 02/08/21 20:01:00 EDT, Route to Pharmacy Electronically, [facility]/pharmacy #[id number], Partial fill upon patient request if the prescript... Start Date: 02/08/21 Status: Ordered darunavir 800 mg oral tablet 1 tablet = 800 mg, By Mouth, Daily, # 30 tablet, 5 Refills, Maintenance, 01/25/21 10:06:00 EDT, Tablet, [facility], Partial fill upon patient request if the prescription is for a schedule II opioid drug., 167.6, cm, 01/23/21 18:14:00... Start Date: 01/25/21 Status: Ordered ferrous sulfate 325 mg oral enteric coated tablet 325 mg, 1, tablet, By Mouth, Daily, # 30 tablet, Refills 11, Tot. Refills 11, Maintenance, 03/02/2112:59:00 EDT, Route to Pharmacy Electronically, [facility], Partial fill upon patient request if the prescription is for a schedule II... Start Date: 03/02/21 Status: Ordered Genvoya oral tablet 1 tablet, By Mouth, Daily, with food, # 30 tablet, 5 Refills, Maintenance, 01/25/21 9:51:00 EDT, Tablet, [facility], Partial fill upon patient request if the prescription is for a schedule II opioid drug., 1 tablet By Mouth Daily,Inst... Start Date: 01/25/21 Status: Ordered hydrochlorothiazide-lisinopril 25 mg-20 mg oral tablet 1 tablet, By Mouth, Daily, # 30 tablet, 4 Refills, Maintenance, 06/28/21 16:48:00 EST, Tablet, [facility], d/c lisinopril 40 mg - change to combo med, 1 tablet By Mouth Daily, 167.6,cm, 02/19/21 16:01:00 EDT, Height, 69.3, kg, ... Start Date: 06/28/21 Status: Ordered MiraLax oral powder for reconstitution = 17 Gm, By Mouth, Daily, PRN Constipation, dissolve in water before taking, # 527 Gm, 11 Refills, Maintenance, 02/08/21 20:01:00 EDT, REC Powder, [facility]/pharmacy #[id number], Partial fill upon patient request if the prescription is for a schedule II opioid dr.[place]on. Start Date: 02/08/21 Status: Ordered mirtazapine 15 mg oral tablet 1 tablet = 15 mg, By Mouth, Daily at bedtime, # 30 tablet, 4 Refills, Maintenance, 02/19/21 16:53:00 EDT, Tablet, [facility], increase dose, 167.6, cm, 02/19/21 16:01:00 EDT, Height,69.3, kg, 02/02/21 13:00:00 EDT, Dry Weight Start Date: 02/19/21 Stop Date: 07/19/21 Status: Ordered [facility] Rx Refills 0, Maintenance, Calcium/Mg/ Zinc 1 [...] 02/02/21 14:41:00 EDT, Route to Pharmacy Electronically, [facility]/pharmacy #[id number], 167.6, cm, 02/02/21 13:00:00 EDT, [...] 10:56:00 EDT, 12/19/20 10:56:00 EDT, REC Powder, [facility]/pharmacy #[id number], Partial fill upon patient request... Start Date: 12/19/20 Stop Date: 12/16/21 Status: Ordered Thera oral tablet 1 tablet, By Mouth, Daily, # 30 tablet, 11 Refills, Maintenance, 03/09/21 16:13:00 EDT, Tablet, [facility], Partial fill upon patient request if the prescription is for a schedule IIopioid drug., 1 tablet By Mouth Daily, 167.6, cm, 1... Start Date: 03/09/21 Status: Ordered Tylenol 325 mg oral tablet 650 mg, 2, tablet, By Mouth, Every 4 hours, PRN, # 24 tablet, Refills 1, Tot. Refills 1, Maintenance, for fever, 02/02/21 14:41:00 EDT, Route to Pharmacy Electronically, [facility]/pharmacy #[id number], Partial fill upon patient request if the [...]
--- OUTSIDE RECORDS SUMMARY | 2023-11-18 06:41 | XMS_ITS | Continuity of Care Document ---
Author Organization [facility] Address [address] [place] [address]- Care Team Providers Care Airframe Technician Name Role Phone Timmy MERCER, Daphney Heard Primary Care Physician [facility] Date[facility]s): 07/30/19 - 09/01/[address] [address]- [facility] Attending Physician: Not on Staff, Attending MD [...] 2 Refills, Maintenance, 05/18/19 11:15:00 EST, Tablet, [facility] Please deliver, 170, cm, 04/21/19 16:03:00 EST, Height Start Date: 05/18/19 Stop Date: 08/16/19 Status: Ordered doxepin 25 mg oral capsule 3 capsule = 75 mg, By Mouth, Daily at bedtime, Please fill today, # 90 capsule, 5 Refills, Maintenance, 05/18/19 11:13:00 EST, Capsule, [facility] 170, cm, 04/21/19 16:03:00 EST, Height Start Date: 05/18/19 Stop Date: 11/14/19 Status: Ordered ferrous gluconate 324 mg (37.5 mg elemental iron) oral tablet 1 tablet = 324 mg, By Mouth, 2 times a day, # 60 tablet, 1 Refills, Maintenance, 05/20/19 13:38:00 EST, Tablet, [facility]/pharmacy #[id number], 170, cm, 04/21/19 16:03:00 EST, Height [...] 2 Refills, Maintenance, 05/18/19 11:15:00 EST, Tablet, [facility], Please deliver, 1 tablet By Mouth [...] 05/18/19 11:13:00 EST, Route to Pharmacy Electronically, [facility], Please fill today, 170, cm, 04/21/19 [...] Date: 03/16/19 Stop Date: 05/15/19 Status: Ordered polymyxin B-trimethoprim ophthalmic 18754 u-1 mg/ml solution 1 drops, Eye, Right, Every 3 hours, for 7 days, # 10 mL, 0 Refills, Acute 09/03/19 16:16:00 EDT, 08/27/19 16:16:00 EDT, [facility]/pharmacy #[id number], 1 drops Eye, Right Every 3 hours,x7 days, 170, cm, 04/21/1916:03:00 EST, Height Start Date: 08/27/19 Stop Date: 09/03/19 Status: Ordered Provera 10 mg oral tablet 10 mg, 1, tablet, By Mouth, Daily, # 30 tablet, Refills 0, Tot. Refills 0, Maintenance, 04/21/19 16:44:15 EST, Route to Pharmacy Electronically, [id number], [facility], 170, cm, 04/21/19 16:03:00 EST, Height Start Date: 04/21/19 Status: Ordered Vitamin D 56497 iu oral capsule 50,000 International_Units, 1, capsule, By Mouth, Every week, # 5 capsule, Refills 2, Tot. Refills 2, Maintenance, 05/18/19 11:14:00 EST, Route to Pharmacy Electronically, [facility],170, cm, 04/21/19 16:03:00 EST, Height Start [...]
--- OUTSIDE RECORDS SUMMARY | 2023-11-18 06:41 | XMS_ITS | Continuity of Care Document ---
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 Name Role Phone Shala Shields MD Primary Care Physician [facility] 02[facility] - 03/10/21 [facility] [address] [place], [place] [address] Attending Physician: AdmJairo [...] GIVEN DATED: 11/18/11 8Admin Note: VIS GIVEN SENEGALESE 2011-04 9Admin Note: vis given vis date 12/26/2009 10Admin Note: Prevnar 11Admin Note: VIS GIVEN VIS DATE 03/26 Medications Bactrim DS 800 mg-160 mg oral tablet 1 tablet, By Mouth, Daily, # 30 tablet, 5 Refills, Maintenance, 01/25/21 10:04:00 EDT, Tablet, [facility] [...] mL, 11 Refills, Maintenance, 02/02/21 17:36:00 EDT, [facility], replaced tablets by suspension, 167.6, cm, 02/02/21 13:00:00 EDT, Height, 69.3, kg, 02/02/21 13:00... Start Date: 02/02/21 Stop Date: 01/04/22 Status: Ordered Colace sodium 100 mg oral capsule 100 mg, 1, capsule, By Mouth, 2 times a day, PRN, # 60 capsule, Refills 11, Tot. Refills 11, Maintenance, for constipation, 02/08/21 20:01:00 EDT, Route to Pharmacy Electronically, [facility]/pharmacy #[id number], Partial fill upon patient request if the prescript... Start Date: 02/08/21 Status: Ordered darunavir 800 mg oral tablet 1 tablet = 800 mg, By Mouth, Daily, # 30 tablet, 5 Refills, Maintenance, 01/25/21 10:06:00 EDT, Tablet, [facility] [...] 5 Refills, Maintenance, 01/25/21 9:51:00 EDT, Tablet, [facility], Partial fill upon patient request if the prescription is for a schedule II opioid drug., 1 tablet By Mouth Daily,Inst... Start Date: 01/25/21 Status: Ordered lisinopril 40 mg oral tablet 1 tablet = 40 mg, By Mouth, Daily, # 30 tablet, 11 Refills, Maintenance, 03/08/21 8:46:00 EDT, Tablet, [facility], Dose increased, 167.6, cm, 02/19/21 16:01:00 EDT, Height, 69.3, kg,02/02/21 13:00:00 EDT, Dry Weight Start Date: 03/08/21 Status: Ordered MiraLax oral powder for reconstitution = 17 Gm, By Mouth, Daily, PRN Constipation, dissolve in water before taking, # 527 Gm, 11 Refills, Maintenance, 02/08/21 20:01:00 EDT, REC Powder, [facility]/pharmacy #[id number], Partial fill upon patient request if the prescription is for a schedule II opioid dr... Start Date: 02/08/21 Status: Ordered mirtazapine 15 mg oral tablet 1 tablet = 15 mg, By Mouth, Daily at bedtime, # 30 tablet, 4 Refills, Maintenance, 02/19/21 16:53:00 EDT, Tablet, [facility], increase dose, 167.6, cm, 02/19/21 16:01:00 EDT, Height,69.3, kg, 02/02/21 13:00:00 EDT, Dry Weight Start Date: 02/19/21 Stop Date: 07/19/21 Status: Ordered [facility] Refills 0, Maintenance, Calcium/Mg/ [...] 02/02/21 14:41:00 EDT, Route to Pharmacy Electronically, [facility]/pharmacy #[id number], 167.6, cm, 02/02/21 13:00:00 [...] 10:56:00 EDT, 12/19/20 10:56:00 EDT, REC Powder, [facility]/pharmacy #[id number], Partial fill upon patient request... Start Date: 12/19/20 Stop Date: 12/16/21 Status: Ordered Thera oral tablet 1 tablet, By Mouth, Daily, # 30 tablet, 11 Refills, Maintenance, 03/09/21 16:13:00 EDT, Tablet, [facility], Partial fill upon patient request if the prescription is for a schedule IIopioid drug., 1 tablet By Mouth Daily, 167.6, cm, 1... Start Date: 03/09/21 Status: Ordered Tylenol 325 mg oral tablet 650 mg, 2, tablet, By Mouth, Every 4 hours, PRN, # 24 tablet, Refills 1, Tot. Refills 1, Maintenance, for fever, 02/02/21 14:41:00 EDT, Route to Pharmacy Electronically, [facility]/pharmacy #[id number], Partial fill upon patient request if the [...]
--- OUTSIDE RECORDS SUMMARY | 2023-11-18 06:41 | XMS_ITS | Continuity of Care Document ---
Author Organization [facility] y Address [address] [place] [address]- Care Team Providers Care Comic Illustrator Name Role Phone Shala Shields MD Primary Care Physician [phone] Encounter [facility] Date(s): 01/16/22 - 02/15/22 [facility] [address] [place], [place] [address] Attending Physician: Jairo Ochoa Admitting Physician: [...] GIVEN DATED: 11/18/11 8Admin Note: VIS GIVEN ARGENTINE 2011-04 9Admin Note: vis given vis date 12/26/2009 10Admin Note: Prevnar 11Admin Note: VIS GIVEN VIS DATE 03/26 Medications acetaminophen 325 mg oral tablet 650 mg, 2, tablet, By Mouth, 3 times a day, PRN, # 180 tablet, Refills 11, Tot. Refills 11, Maintenance, as needed for fever, 01/28/22 14:53:00 EDT, Route to Pharmacy Electronically, [facility], Partial fill upon patient request if th... Start Date: 01/28/22 Status: Ordered Blood Pressure Monitor See Instructions, [...] mL, 11 Refills, Maintenance, 02/02/21 17:36:00 EDT, [facility], replaced tablets by suspension, 167.6, cm, 02/02/21 13:00:00 EDT, Height, 69.3, kg, 02/02/21 13:00... Start Date: 02/02/21 Stop Date: 01/04/22 Status: Ordered Colace sodium 100 mg oral capsule 100 mg, 1, capsule, By Mouth, 2 times a day, PRN, # 60 capsule, Refills 11, Tot. Refills 11, Maintenance, for constipation, 02/08/21 20:01:00 EDT, [id number] Partial fill upon patient request if the prescript... Start Date: 02/08/21 Status: Ordered darunavir 800 mg oral tablet 1 tablet = 800 mg, By Mouth, Daily, with food, please get labs before refills, # 90 tablet, 3 Refills, Maintenance, 11/28/21 12:11:00 EDT, Tablet, [facility], Partial fill upon patient request if the prescription is for a schedule II... Start Date: 11/28/21 Status: Ordered diclofenac 1% topical gel 1 application, Topically, 4 times a day, # 100 Gm, 11 Refills, Maintenance, 12/06/21 19:06:00 EDT, Gel, [facility]/pharmacy #[id number], Partial fill upon patient request if the prescription is for a schedule II opioid drug., 167.6, cm, 12/06/21 18:07:00 EDT, [place]... Start Date: 12/06/21 Status: Ordered duloxetine 30 mg oral enteric coated capsule 1 capsule = 30 mg, By Mouth, Daily, start with duloxetine 30mg daily x 2 weeks then duloxetine 60mgdaily, # 14 capsule, 0 Refills, Maintenance, 12/06/21 19:06:00 EDT, [facility]/pharmacy #[id number], Partial fill upon patient request if the prescription is for a... Start Date: 12/06/21 Stop Date: 12/20/21 Status: Ordered duloxetine 60 mg oral enteric coated capsule 1 capsule = 60 mg, By Mouth, Daily, start with duloxetine 30mg daily x 2 weeks then duloxetine 60mgdaily, # 30 capsule, 4 Refills, Maintenance, 12/06/21 19:06:00 EDT, EC Capsule, [id number],Partial fill upon patient request if the prescripti... Start Date: 12/06/21 Status: Ordered ferrous sulfate 325 mg oral enteric coated tablet 325 mg, 1, tablet, By Mouth, Every other day, # 30 tablet, Refills 11, Tot. Refills 11, Maintenance, 12/06/21 19:06:00 EDT, Route to Pharmacy Electronically, [id number], Partial fill upon patient request if the prescription is for a schedule I... Start Date: 12/06/21 Status: Ordered Genvoya oral tablet 1 tablet, By Mouth, Daily, with food, please get labs before refills, # 90 tablet, 3 Refills, Maintenance, 11/28/21 12:10:00 EDT, Tablet, [facility], Partial fill upon patient request if the prescription is for a schedule II opioid . Start Date: 11/28/21 Status: Ordered hydrochlorothiazide-lisinopril 25 mg-20 mg oral tablet 1 tablet, By Mouth, Daily, please get labs before refills, # 30 tablet, 11 Refills, Maintenance, 01/28/22 14:55:00 EDT, Tablet, [facility], d/c lisinopril 40 mg - change to combo med, 1 tablet By Mouth Daily,Instr:please get labs befo... Start Date: 01/28/22 Status: Ordered metroNIDAZOLE 0.75% topical gel 1 applicator, Vaginally, Daily, # 70 Gm, 0 Refills, Maintenance, 11/20/21 14:08:00 EDT, [facility], Partial fill upon patient request if the prescription is for a schedule II opioid drug., 1 applicator Vaginally Daily,x5 days, 167.6,... Start Date: 11/20/21 Stop Date: 11/25/21 Status: Ordered MiraLax oral powder for reconstitution = 17 Gm, By Mouth, Daily, PRN Constipation, dissolve in water before taking, # 527 Gm, 11 Refills, Maintenance, 02/08/21 20:01:00 EDT, REC Powder, [facility]/pharmacy #[id number], Partial fill upon patient request [...] 11 Refills, Maintenance, 03/09/21 16:13:00 EDT, Tablet, [facility], Partial fill upon patient request if the prescription is for a schedule IIopioid drug., 1 tablet By Mouth Daily, 167.6, cm, 1... Start Date: 03/09/21 Status: Ordered Problem List Condition Confirmation Course [...] Iron deficiency anemia Confirmed Active *Catalina Diaz Feed Research Technician-[facility] [phone] Confirmed Active Mild recurrent major depression Confirmed Active Urinary incontinence Confirmed Active 1EGD 07/2010 - likely apthous ulcers with very morbid 2 weeks of weight loss and requiring IV fluids Social History Social History Type Response Smoking Status Never smoker; Tobacc o user in household: No entered on: 01/26/15 Sex Patient Care team information Personnel Name: Cornelius REDDY, Shala Kuo Address: Address: [address] [place] [address], -Level [facility] [place], [place] [address]
--- OUTSIDE RECORDS SUMMARY | 2023-11-18 06:41 | XMS_ITS | Continuity of Care Document ---
Author Organization [facility] Address [address] [place] [address]- Care Team Providers Care Editor Name Role Phone Cornelius REDDY, Shala Kuo Primary Care Physician [phone] Encounter [facility] Date(s): 12/20/20 - 01/19/[address] [address]- Allergies, Adverse Reactions, Alerts Substance Reaction Severity [...] GIVEN DATED: 11/18/11 8Admin Note: VIS GIVEN CAMEROONIAN 2011-04 9Admin Note: vis given vis date 12/26/2009 10Admin Note: Prevnar 11Admin Note: VIS GIVEN VIS DATE 03/26 Medications Bactrim DS 800 mg-160 mg oral tablet 1 tablet, By Mouth, Every 24 hours, # 30 tablet, 5 Refills, Maintenance, 01/11/21 10:10:00 EDT, Tablet, [facility], Partial fill upon patient request [...] EDT, Supply Start Date: 12/26/20 Status: Ordered Canceled amlodipine due to lower [...] 1,120 mL, 1 Refills, Maintenance,12/19/20 23:29:00 EDT, [facility]/pharmacy #[id number], replaced tablets by suspension, 166, cm, 12/19/20 9:44:00 EDT, Height, 66.9, kg, 12/12/20 19:05:00 EDT, Dry... Start Date: 12/19/20 Stop Date: 02/13/21 Status: Ordered cobicistat-darunavir 150 mg-800 mg oral tablet 1 tablet, By Mouth, Daily, # 30 tablet, 0 Refills, Maintenance, 01/11/21 10:09:00 EDT, Tablet, [facility], Partial fill upon patient request if the prescription is for a schedule II opioid drug., 1 tablet By Mouth Daily, 166, cm, 2... Start Date: 01/11/21 Status: Ordered ferrous sulfate 325 mg oral enteric coated tablet 325 mg, 1, tablet, By Mouth, Daily, # 30 tablet, Refills 1, Tot. Refills 1, Maintenance, 01/06/21 18:35:00 EDT, Route to Pharmacy Electronically, [facility], Partial fill upon patient request if the prescription is for a schedule II o... Start Date: 01/06/21 Status: Ordered ferrous sulfate 325 mg oral enteric coated tablet 325 mg, 1, tablet, By Mouth, Daily, # 90 tablet, Refills 1, Tot. Refills 1, Maintenance, 12/19/20 10:55:00 EDT, [id number], Partial fill upon patient requestif the prescription is for a schedule II opioid sudhir... Start Date: 12/19/20 Status: Ordered Genvoya oral tablet 1 tablet, By Mouth, Daily, with food, # 30 tablet, 0 Refills, Maintenance, 01/11/21 10:09:00 EDT, Tablet, [facility], Partial fill upon patient request if the prescription is for a schedule II opioid drug., 1 tablet By Mouth Daily,Ins... Start Date: 01/11/21 Status: Ordered lisinopril 10 mg oral tablet 10 mg, 1, tablet, By Mouth, Daily, # 30 tablet, Refills 1, Tot. Refills 1, Maintenance, 01/06/21 18:35:00 EDT, Route to Pharmacy Electronically, [facility], Partial fill upon patientrequest if the prescription is for a schedule II op... Start Date: 01/06/21 Stop Date: 02/05/21 Status: Ordered lisinopril 10 mg oral tablet 10 mg, 1, tablet, By Mouth, Daily, # 30 tablet, Refills 0, Tot. Refills 0, Maintenance, 12/15/20 10:44:00 EDT, Route to Pharmacy Electronically, [facility], Partial fill upon patient request if the prescription is for a schedule II opioi... Start Date: 12/15/20 Stop Date: 01/14/21 Status: Ordered mirtazapine 15 mg oral tablet 0.5 tablet = 7.5 mg, By Mouth, Daily at bedtime, # 15 tablet, 4 Refills, Maintenance, 01/08/21 11:59:00 EDT, Tablet, [facility], Partial fill upon patient request if the prescriptionis for a schedule II opioid drug., 166, cm, ... Start Date: 01/08/21 Stop Date: 06/07/21 Status: Ordered pantoprazole 40 mg oral delayed [...] 10:56:00 EDT, 12/19/20 10:56:00 EDT, REC Powder, [facility]/pharmacy #[id number], Partial fill upon patient [...]
--- OUTSIDE RECORDS SUMMARY | 2023-11-18 06:41 | XMS_ITS | Continuity of Care Document ---
Author Organization [facility] y Address [address] [place] [address]- Care Team Providers Care Hvac Project Engineer Name Role Phone Shala Shields MD Primary Care Physician Encounter [facility] Date(s): 03/06/23 - 04/05/23 [facility] [address], [place] [address] Attending Physician: AdmJairo he Admitting Physician: Admtr, [...] GIVEN DATED: 11/18/11 8Admin Note: VIS GIVEN OMANI 2011-04 9Admin Note: vis given vis date 12/26/2009 10Admin Note: Prevnar 11Admin Note: VIS GIVEN VIS DATE 03/26 Medications acetaminophen 325 mg oral tablet 650 mg, 2, tablet, By Mouth, 3 times a day, PRN, # 540 tablet, Refills 3, Tot. Refills 3, Maintenance, as needed for fever, 02/20/23 13:39:00 EDT, Route to Pharmacy Electronically, [facility], Partial fill upon patient request if the prescri... Start Date: 02/20/23 Status: Ordered Bactrim 400 mg-80 mg oral tablet 1 tablet, By Mouth, Daily, BUBBLE PACK, # 90 tablet, 1 Refills, Maintenance, 02/20/23 13:37:00 EDT,Tablet, [facility], Partial fill upon patient request if [...] mL, 11 Refills, Maintenance, 09/18/22 15:52:00 EDT, [facility], replaced tablets by suspension, 167.6, cm, 07/04/22 16:00:00 EST, Height, 69.3, kg, 02/02/21 13:00... Start Date: 09/18/22 Stop Date: 08/20/23 Status: Ordered Colace sodium 100 mg oral capsule 100 mg, 1, capsule, By Mouth, 2 times a day, PRN, # 60 capsule, Refills 11, Tot. Refills 11, Maintenance, for constipation, 02/20/23 13:39:00 EDT, Route to Pharmacy Electronically, [facility], Partial fill upon patient request if the prescri... Start Date: 02/20/23 Status: Ordered darunavir 800 mg oral tablet 1 tablet = 800 mg, By Mouth, Daily, with food, please get labs before refills; BUBBLE PACK, # 90 tablet, 1 Refills, Maintenance, 02/20/23 13:39:00 EDT, Tablet, [facility], Partial fill uponpatient request if the prescription is for a schedu... Start Date: 02/20/23 Status: Ordered diclofenac 1% topical gel 1 application, Topically, 4 times a day, # 100 Gm, 11 Refills, Maintenance, 09/18/22 15:52:00 EDT, Gel, [facility], Partial fill upon patient request if the prescription is for a schedule II opioid drug., 167.6, cm, 07/04/22 16:00:00... Start Date: 09/18/22 Status: Ordered duloxetine 30 mg oral enteric coated capsule 1 capsule = 30 mg, By Mouth, Daily, start with duloxetine 30mg daily x 2 weeks then duloxetine 60mgdaily; BUBBLE PACK, # 14 capsule, 0 Refills, Maintenance, 02/20/23 13:46:00 EDT, [facility], Partial fill upon patient request if the prescri... Start Date: 02/20/23 Stop Date: 03/06/23 Status: Ordered duloxetine 60 mg oral enteric coated capsule 1 capsule = 60 mg, By Mouth, Daily, start with duloxetine 30mg daily x 2 weeks then duloxetine 60mgdaily; BUBBLE PACK, # 30 capsule, 4 Refills, Maintenance, 02/20/23 13:46:00 EDT, EC Capsule, [facility], Partial fill upon patient request if... Start Date: 02/20/23 Status: Ordered ferrous sulfate 325 mg oral enteric coated tablet 325 mg, 1, tablet, By Mouth, Every other day, BUBBLE PACK, # 45 tablet, Refills 3, Tot. Refills 3, Maintenance, 02/20/23 13:37:00 EDT, Route to Pharmacy Electronically, [facility], Partial fill upon patient request if the prescription is for... Start Date: 02/20/23 Status: Ordered Genvoya oral tablet 1 tablet, By Mouth, Daily, with food, please get labs before refills; BUBBLE PACK, # 90 tablet, 1 Refills, Maintenance, 02/20/23 13:39:00 EDT, Tablet, [facility], Partial fill upon patient request if the prescription is for a schedule II opi... Start Date: 02/20/23 Status: Ordered hydrochlorothiazide-olmesartan 25 mg-40 mg oral tablet 1 tablet, By Mouth, Daily, BUBBLE PACK, # 90 tablet, 3 Refills, Maintenance, 02/20/23 13:37:00 EDT,Tablet, [facility], d/c HCTZ/lisinopril, 1 tablet By Mouth Daily,Instr:BUBBLE PACK, 167.6, cm, 12/23/22 8:35:00 EDT, Height Start Date: 02/20/23 Status: Ordered Lidoderm 5% film 2 patch, Topically, Daily, remove patches after 12 hours; 2 patches to pain areas; can cut patches in half; do not excede 2 patches., # 60 patch, 4 Refills, Maintenance, 03/06/23 15:42:00 EDT, [facility]/pharmacy #[id number], Partial fill upon patient request if t... Start Date: 03/06/23 Stop Date: 08/03/23 Status: Ordered MetroGel 1% topical gel 1 application, Topically, Daily, PRN facial rash, # 60 Gm, 11 Refills, Maintenance, 12/23/22 8:40:00 EDT, Gel, [facility], Partial fill upon patient request if the prescription is for a schedule II opioid drug., 1 application Topicall... Start Date: 12/23/22 Status: Ordered MiraLax oral powder for reconstitution = 17 Gm, By Mouth, Daily, PRN Constipation, dissolve in water before taking, # 527 Gm, 11 Refills, Maintenance, 02/20/23 13:39:00 EDT, REC Powder, [facility], Partial fill upon patient request if the prescription is for a schedule II opioid... Start Date: 02/20/23 Status: Ordered [facility] Refills 0, Maintenance, Calcium/Mg/ Zinc 1 [...] Refills, Soft Stop, 12/23/22 8:46:00 EDT, Powder, [facility], Partial fill upon patient request if the prescription is for a schedule II opioid drug., 0.5 mL Int... Start Date: 12/23/22 Status: Ordered Thera oral tablet 1 tablet, By Mouth, Daily, BUBBLE PACK, # 90 tablet, 3 Refills, Maintenance, 02/20/23 13:37:00 EDT,Tablet, [facility], Partial fill upon patient request [...] pubis OA, left Confirmed Active *Catalina Diaz Jailor-[facility] [phone] Confirmed Active Mild recurrent major depression Confirmed [...] Team Personnel Name: Jaky Nicole RN Position: [facility] RN Member Role: Primary Care Nurse Name: Rhea Heard Position: S RN Member Role: Primary Care Nurse Name: Shala Shields MD Position: [facility] Physician - Primary Care Member Role: PCP Address: Address: [address] [place] [address] [place] [address]- Name: Kassi Wang RN Position: S RN Member Role: Primary Care Nurse Name: Isabell David RN Position: [facility] SN RN Member Role: Primary Care Nurse Care Team Related Persons Name: REYES OSHEA Address: home [address] [place] [id number] Name: SALLY SHANIKA Address: home [address] [place] [id number]
--- OUTSIDE RECORDS SUMMARY | 2023-11-18 06:41 | XMS_ITS | Continuity of Care Document ---
Author Organization [facility] Address [address] [place] [address]- Care Team Providers Care Broach Grinder Name Role Phone Cornelius REDDY, Shala Kuo Primary Care Physician Encounter [facility] Date(s): 03/29/21 - 04/28/21 [facility] [address] [place], [place] [address] Allergies, Adverse Reactions, Alerts Substance Reaction [...] 23-valent vaccine 04/27/13 Given tetanus/diphtheria/pertussis, acel(Tdap) 11 11/2/10 Given 1Admin Note: Influenza vaccine 2Admin Note: [...] 5 Refills, Maintenance, 01/25/21 10:04:00 EDT, Tablet, [facility], Partial fill upon patient [...] mL, 11 Refills, Maintenance, 02/02/21 17:36:00 EDT, [facility], replaced tablets by suspension, 167.6, cm, 02/02/21 13:00:00 EDT, Height, 69.3, kg, 02/02/21 13:00... Start Date: 02/02/21 Stop Date: 01/04/22 Status: Ordered Colace sodium 100 mg oral capsule 100 mg, 1, capsule, By Mouth, 2 times a day, PRN, # 60 capsule, Refills 11, Tot. Refills 11, Maintenance, for constipation, 02/08/21 20:01:00 EDT, Route to Pharmacy Electronically, [facility]/pharmacy #[id number], Partial fill upon patient request if the prescript... Start Date: 02/08/21 Status: Ordered darunavir 800 mg oral tablet 1 tablet = 800 mg, By Mouth, Daily, # 30 tablet, 5 Refills, Maintenance, 01/25/21 10:06:00 EDT, Tablet, [facility], Partial fill upon patient request if the prescription is for a schedule II opioid drug., 167.6, cm, 01/23/21 18:14:00... Start Date: 01/25/21 Status: Ordered ferrous sulfate 325 mg oral enteric coated tablet 325 mg, 1, tablet, By Mouth, Daily, # 30 tablet, Refills 11, Tot. Refills 11, Maintenance, 03/02/2112:59:00 EDT, Route to Pharmacy Electronically, [facility], Partial fill upon patient request if the prescription is for a schedule II... Start Date: 03/02/21 Status: Ordered Genvoya oral tablet 1 tablet, By Mouth, Daily, with food, # 30 tablet, 5 Refills, Maintenance, 01/25/21 9:51:00 EDT, Tablet, [facility], Partial fill upon patient request if the prescription is for a schedule II opioid drug., 1 tablet By Mouth Daily,Inst... Start Date: 01/25/21 Status: Ordered lisinopril 40 mg oral tablet 1 tablet = 40 mg, By Mouth, Daily, # 30 tablet, 11 Refills, Maintenance, 03/08/21 8:46:00 EDT, Tablet, [facility], Dose increased, 167.6, cm, 02/19/21 16:01:00 EDT, Height, 69.3, kg,02/02/21 13:00:00 EDT, Dry Weight Start Date: 03/08/21 Status: Ordered MiraLax oral powder for reconstitution = 17 Gm, By Mouth, Daily, PRN Constipation, dissolve in water before taking, # 527 Gm, 11 Refills, Maintenance, 02/08/21 20:01:00 EDT, REC Powder, [facility]/pharmacy #[id number], Partial fill upon patient request if the prescription is for a schedule II opioid dr... Start Date: 02/08/21 Status: Ordered mirtazapine 15 mg oral tablet 1 tablet = 15 mg, By Mouth, Daily at bedtime, # 30 tablet, 4 Refills, Maintenance, 02/19/21 16:53:00 EDT, Tablet, [facility], increase dose, 167.6, cm, 02/19/21 16:01:00 EDT, Height,69.3, kg, 02/02/21 13:00:00 EDT, Dry Weight Start Date: 02/19/21 Stop Date: 07/19/21 Status: Ordered [facility] [place] Rx Refills 0, Maintenance, Calcium/Mg/ Zinc 1 [...] 02/02/21 14:41:00 EDT, Route to Pharmacy Electronically, [facility]/pharmacy #[id number], 167.6, cm, 02/02/21 13:00:00 EDT, Height, [...] 10:56:00 EDT, 12/19/20 10:56:00 EDT, REC Powder, [facility]/pharmacy #[id number], Partial fill upon patient request... Start Date: 12/19/20 Stop Date: 12/16/21 Status: Ordered Thera oral tablet 1 tablet, By Mouth, Daily, # 30 tablet, 11 Refills, Maintenance, 03/09/21 16:13:00 EDT, Tablet, [facility], Partial fill upon patient request if the prescription is for a schedule IIopioid drug., 1 tablet By Mouth Daily, 167.6, cm, 1... Start Date: 03/09/21 Status: Ordered Tylenol 325 mg oral tablet 650 mg, 2, tablet, By Mouth, Every 4 hours, PRN, # 24 tablet, Refills 1, Tot. Refills 1, Maintenance, for fever, 02/02/21 14:41:00 EDT, Route to Pharmacy Electronically, [facility]/pharmacy #[id number], Partial fill upon patient request if the [...]
--- OUTSIDE RECORDS SUMMARY | 2023-11-18 06:41 | XMS_ITS | Continuity of Care Document ---
Author Organization [facility] Address [address] [place] [address]- Care Team Providers Care Marketer Name Role Phone Timmy MERCER, Dahpney Heard Primary Care Physician Encounter [facility] Date(s): 06/08/19 - 07/17/19 [facility] [address] [place] [address]- Attending Physician: Shala Shields MD Admitting Physician: [...] GIVEN DATED: 11/18/11 8Admin Note: VIS GIVEN RWANDAN 2011-04 9Admin Note: vis given vis date [...] 2 Refills, Maintenance, 05/18/19 11:15:00 EST, Tablet, [facility] Please deliver, 170, cm, 04/21/19 16:03:00 EST, Height Start Date: 05/18/19 Stop Date: 08/16/19 Status: Ordered doxepin 25 mg oral capsule 3 capsule = 75 mg, By Mouth, Daily at bedtime, Please fill today, # 90 capsule, 5 Refills, Maintenance, 05/18/19 11:13:00 EST, Capsule, [facility] 170, cm, 04/21/19 16:03:00 EST, Height Start Date: 05/18/19 Stop Date: 11/14/19 Status: Ordered ferrous gluconate 324 mg (37.5 mg elemental iron) oral tablet 1 tablet = 324 mg, By Mouth, 2 times a day, # 60 tablet, 1 Refills, Maintenance, 05/20/19 13:38:00 EST, Tablet, [facility]/pharmacy #[id number], 170, cm, 04/21/19 16:03:00 EST, [...] 2 Refills, Maintenance, 05/18/19 11:15:00 EST, Tablet, [facility], Please deliver, 1 tablet By Mouth [...] 05/18/19 11:13:00 EST, Route to Pharmacy Electronically, [facility], Please fill today, 170, cm, 04/21/19 [...] 04/21/19 16:44:15 EST, Route to Pharmacy Electronically, [id number], [facility], 170, cm, 04/21/19 16:03:00 EST, Height Start Date: 04/21/19 Status: Ordered Vitamin D 75213 iu oral capsule 50,000 International_Units, 1, capsule, By Mouth, Every week, # 5 capsule, Refills 2, Tot. Refills 2, Maintenance, 05/18/19 11:14:00 EST, Route to Pharmacy Electronically, [facility],170, cm, 04/21/19 16:03:00 EST, Height Start [...]
--- OUTSIDE RECORDS SUMMARY | 2023-11-18 06:41 | XMS_ITS | Continuity of Care Document ---
Author Organization [facility] Address [address] [place] [address]- Care Team Providers Care Registrar [employer] Name Role Phone Cornelius REDDY, Shala Kuo Primary Care Physician [phone] Encounter [facility] Date(s): 07/29/23 - 08/28/[address] [address] Attending Physician: Admtr, Ar8 Allergies, Adverse Reactions, Alerts Substance Reaction Severity Status azithromycin 1 Persistent Mild Active rifabutin Rash Persistent Moderate Active amLODIPine 2 Active 1Rash 2Had Lower extremity ankle swelling with 10mg. Immunizations Given and Recorded Vaccine Date Status Refusal Reason SARS-CoV-2 (COVID-19) mRNA-1769 vaccine 04/04/22 G iven influenza virus vaccine, [...] GIVEN DATED: 11/18/11 8Admin Note: VIS GIVEN CZECH 2011-04 9Admin Note: vis given vis date 12/26/2009 10Admin Note: Prevnar 11Admin Note: VIS GIVEN VIS DATE 03/26 Medications acetaminophen 325 mg oral tablet 650 mg, 2, tablet, By Mouth, 3 times a day, PRN, # 540 tablet, Refills 3, Tot. Refills 3, Maintenance, as needed for fever, 02/20/23 13:39:00 EDT, Route to Pharmacy Electronically, [facility], Partial fill upon patient request if the prescri... Start Date: 02/20/23 Status: Ordered Bactrim 400 mg-80 mg oral tablet 1 tablet, By Mouth, Daily, BUBBLE PACK, # 90 tablet, 1 Refills, Maintenance, 02/20/23 13:37:00 EDT,Tablet, [facility], Partial fill upon patient request if [...] 1 Refills, Maintenance, 04/25/23 11:55:00 EST, Tablet, [facility], Partial fill upon [...] Maintenance, 07/03/23 19:03:00 EST, EC Capsule, [facility], Partial fill upon patient request if the... Start Date: 07/03/23 Status: Ordered ferrous sulfate 325 mg oral enteric coated tablet 325 mg, 1, tablet, By Mouth, Daily, # 90 tablet, Refills 3, Tot. Refills 3, Maintenance, 08/26/23 9:38:00 EDT, Route to Pharmacy Electronically, [facility], Partial fill upon patientrequest if the prescription is for a schedule II op... Start Date: 08/26/23 Status: Ordered gabapentin 100 mg oral capsule 100 mg, 1, capsule, By Mouth, Daily at bedtime, PRN, # 30 capsule, Refills 4, Tot. Refills 4, Maintenance, Anxiety, 08/05/23 10:19:00 EDT, Route to Pharmacy Electronically, [facility], Partial fill upon patient request if the prescrip... Start Date: 08/05/23 Stop Date: 08/12/23 Status: Ordered Genvoya oral tablet 1 tablet, By Mouth, Daily, with food, please get labs before refills; BUBBLE PACK, # 90 tablet, 1 Refills, Maintenance, 04/25/23 11:55:00 EST, Tablet, [facility], Partial fill upon patient request if the prescription is for a schedule... Start Date: 04/25/23 Status: Ordered hydrochlorothiazide-olmesartan 25 mg-40 mg oral tablet 0.5 tablet, By Mouth, Daily, # 15 tablet, 4 Refills, Maintenance, 08/07/23 15:23:00 EDT, Tablet, [facility]/pharmacy #[id number], decrease dose, 0.5 tablet By Mouth Daily, 167.6, cm, 08/05/23 9:50:00 EDT, Height Start Date: 08/07/23 Status: Ordered Lidoderm 5% film 2 patch, Topically, Daily, remove patches after 12 hours; 2 patches to pain areas; can cut patches in half; do not excede 2 patches., # 60 patch, 4 Refills, Maintenance, 03/06/23 15:42:00 EDT, [facility]/pharmacy #[id number], Partial fill upon patient request if t... Start Date: 03/06/23 Stop Date: 08/03/23 Status: Ordered meloxicam 7.5 mg oral tablet 1 tablet = 7.5 mg, By Mouth, Daily, [place]ke with acetaminophen, # 14 tablet, 0 Refills, Maintenance, 08/25/23 16:16:00 EDT, Tablet, [facility], Partial fill upon patient [...] Refills, Maintenance, 07/28/23 16:46:00 EDT, Tablet, [facility]/pharmacy #[id number], Partial fill upon patient request if [...] Maintenance, 07/03/23 18:52:00 EST, REC Powder, [facility], Partial fill upon patient request if the prescription is for a schedule II opioid drug., 17 Gm... Start Date: 07/03/23 Stop Date: 10/01/23 Status: Ordered Thera oral tablet 1 tablet, By Mouth, Daily, # 90 tablet, 3 Refills, Maintenance, 08/26/23 9:38:00 EDT, Tablet, [facility], Partial fill upon patient request if the prescription is for a schedule II opioid drug., 1 tablet By Mouth Daily, 167.6, cm, ... Start Date: 08/26/23 Status: Ordered Vitamin D3 1000 intl units oral capsule 1 capsule = 25 mcg, By Mouth, Daily, # 90 capsule, 3 Refills, Maintenance, 07/03/23 19:05:00 EST, Capsule, [facility], Partial fill upon patient [...] pubis OA, left Confirmed Active *Catalina Diaz Conveyor Attendant-[facility] [phone] Confirmed Active Mild recurrent major depression Confirmed Active Rosacea Confirmed Active Urinary incontinence Confirmed Active Social History Social History Type Response Tobacco Use: Rolls weed in l eaf tabacco . Sex Patient Care team information Care Team Personnel Name: Jaky Nicole RN Position: [facility] RN Member Role: Primary Care Nurse Name: Rhea Brooks Position: [facility] RN Member Role: Primary Care Nurse Name: Shala Shields MD Position: [facility] Physician - Primary Care Member Role: PCP Address: Address: [address] [place] [address] [place], [place] [address] Name: Kassi Wang RN Position: [facility] RN Member Role: Primary Care Nurse Name: Isabell David RN Position: [facility] ERNESTO Office Staff Member Role: Primary Care Nurse Care Team Related Persons Name: REYES OSHEA Address: home [address] [address] Name: SHANIKA ZAVALA Address: home [address] [place] [address]
--- OUTSIDE RECORDS SUMMARY | 2023-11-18 06:41 | XMS_ITS | Continuity of Care Document ---
Author Organization [facility] Address [address] [place] [address]- Care Team Providers Care Reexaminer Name Role Phone Cornelius REDDY, Shala Kuo Primary Care Physician [place] [facility] [place]27[place]21 - 04/26/21 [facility] [address] [place], [place] [address] [place] Attending Physician: Admtr, Ar8 Allergies, Adverse Reactions, [...] 5 Refills, Maintenance, 01/25/21 10:04:00 EDT, Tablet, [facility], [...] mL, 11 Refills, Maintenance, 02/02/21 17:36:00 EDT, [facility], replaced tablets by suspension, 167.6, cm, 02/02/21 13:00:00 EDT, Height, 69.3, kg, 02/02/21 13:00... Start Date: 02/02/21 Stop Date: 01/04/22 Status: Ordered Colace sodium 100 mg oral capsule 100 mg, 1, capsule, By Mouth, 2 times a day, PRN, # 60 capsule, Refills 11, Tot. Refills 11, Maintenance, for constipation, 02/08/21 20:01:00 EDT, Route to Pharmacy Electronically, [facility]/pharmacy #[id number], Partial fill upon patient request if the prescript... Start Date: 02/08/21 Status: Ordered darunavir 800 mg oral tablet 1 tablet = 800 mg, By Mouth, Daily, # 30 tablet, 5 Refills, Maintenance, 01/25/21 10:06:00 EDT, Tablet, [facility], Partial fill upon patient request if the prescription is for a schedule II opioid drug., 167.6, cm, 01/23/21 18:14:00... Start Date: 01/25/21 Status: Ordered ferrous sulfate 325 mg oral enteric coated tablet 325 mg, 1, tablet, By Mouth, Daily, # 30 tablet, Refills 11, Tot. Refills 11, Maintenance, 03/02/2112:59:00 EDT, Route to Pharmacy Electronically, [facility], Partial fill upon patient request if the prescription is for a schedule II... Start Date: 03/02/21 Status: Ordered Genvoya oral tablet 1 tablet, By Mouth, Daily, with food, # 30 tablet, 5 Refills, Maintenance, 01/25/21 9:51:00 EDT, Tablet, [facility], Partial fill upon patient request if the prescription is for a schedule II opioid drug., 1 tablet By Mouth Daily,Inst... Start Date: 01/25/21 Status: Ordered lisinopril 40 mg oral tablet 1 tablet = 40 mg, By Mouth, Daily, # 30 tablet, 11 Refills, Maintenance, 03/08/21 8:46:00 EDT, Tablet, [facility], Dose increased, 167.6, cm, 02/19/21 16:01:00 EDT, Height, 69.3, kg,02/02/21 13:00:00 EDT, Dry Weight Start Date: 03/08/21 Status: Ordered MiraLax oral powder for reconstitution = 17 Gm, By Mouth, Daily, PRN Constipation, dissolve in water before taking, # 527 Gm, 11 Refills, Maintenance, 02/08/21 20:01:00 EDT, REC Powder, [facility]/pharmacy #[id number], Partial fill upon patient request if the prescription is for a schedule II opioid drShilo. Start Date: 02/08/21 Status: Ordered mirtazapine 15 mg oral tablet 1 tablet = 15 mg, By Mouth, Daily at bedtime, # 30 tablet, 4 Refills, Maintenance, 02/19/21 16:53:00 EDT, Tablet, [facility], increase dose, 167.6, cm, 02/19/21 16:01:00 EDT, Height,69.3, kg, 02/02/21 13:00:00 EDT, Dry Weight Start Date: 02/19/21 Stop Date: 07/19/21 Status: Ordered [facility] [...] 02/02/21 14:41:00 EDT, Route to Pharmacy Electronically, [facility]/pharmacy #[id number], 167.6, cm, 02/02/21 13:00:00 [...] 10:56:00 EDT, 12/19/20 10:56:00 EDT, REC Powder, [facility]/pharmacy #[id number], Partial fill upon patient request... Start Date: 12/19/20 Stop Date: 12/16/21 Status: Ordered Thera oral tablet 1 tablet, By Mouth, Daily, # 30 tablet, 11 Refills, Maintenance, 03/09/21 16:13:00 EDT, Tablet, [facility], Partial fill upon patient request if the prescription is for a schedule IIopioid drug., 1 tablet By Mouth Daily, 167.6, cm, 1... Start Date: 03/09/21 Status: Ordered Tylenol 325 mg oral tablet 650 mg, 2, tablet, By Mouth, Every 4 hours, PRN, # 24 tablet, Refills 1, Tot. Refills 1, Maintenance, for fever, 02/02/21 14:41:00 EDT, Route to Pharmacy Electronically, [facility]/pharmacy #[id number], Partial fill upon patient request if the [...]
--- OUTSIDE RECORDS SUMMARY | 2023-11-18 06:41 | XMS_ITS | Continuity of Care Document ---
Author Organization [facility] Address [address] [place] [address]- Care Team Providers Care General Surgeon Name Role Phone Shala Shields MD Primary Care Physician Encounter [facility] Date(s): 07/03/22 - 08/02/22 [facility] [address] [place] [address]- Allergies, Adverse Reactions, Alerts Substance Reaction Severity [...] GIVEN DATED: 11/18/11 8Admin Note: VIS GIVEN YEMENI 2011-04 9Admin Note: vis given vis date 12/26/2009 10Admin Note: Prevnar 11Admin Note: VIS GIVEN VIS DATE 03/26 Medications acetaminophen 325 mg oral tablet 650 mg, 2, tablet, By Mouth, 3 times a day, PRN, # 180 tablet, Refills 11, Tot. Refills 11, Maintenance, as needed for fever, 01/28/22 14:53:00 EDT, Route to Pharmacy Electronically, [facility], Partial fill upon [...] mL, 11 Refills, Maintenance, 03/29/22 11:16:00 EST, [facility], replaced tablets by suspension, 167.6, cm, 03/05/22 9:57:00 EDT, Height, 69.3, kg, 02/02/21 13:00:... Start Date: 03/29/22 Stop Date: 02/28/23 Status: Ordered Colace sodium 100 mg oral capsule 100 mg, 1, capsule, By Mouth, 2 times a day, PRN, # 60 capsule, Refills 11, Tot. Refills 11, Maintenance, for constipation, 03/29/22 11:16:00 EST, Route to Pharmacy Electronically, [facility], Partial fill upon patient request if the... Start Date: 03/29/22 Status: Ordered darunavir 800 mg oral tablet 1 tablet = 800 mg, By Mouth, Daily, with food, please get labs before refills, # 90 tablet, 3 Refills, Maintenance, 11/28/21 12:11:00 EDT, Tablet, [facility], Partial fill upon patient request if the prescription is for a schedule II... Start Date: 11/28/21 Status: Ordered diclofenac 1% topical gel 1 application, Topically, 4 times a day, # 100 Gm, 11 Refills, Maintenance, 12/06/21 19:06:00 EDT, Gel, [facility]/pharmacy #[id number], Partial fill upon patient request if the prescription is for a schedule II opioid drug., 167.6, cm, 12/06/21 18:07:00 EDT, Heig... Start Date: 12/06/21 Status: Ordered duloxetine 60 mg oral enteric coated capsule 1 capsule = 60 mg, By Mouth, Daily, # 30 capsule, 11 Refills, Maintenance, 03/05/22 12:42:00 EDT, EC Capsule, [facility], Partial fill upon patient request if the prescription is fora schedule II opioid drug., 167.6, cm, 03/05/22 9:5... Start Date: 03/05/22 Status: Ordered ferrous sulfate 325 mg oral enteric coated tablet 325 mg, 1, tablet, By Mouth, Every other day, # 30 tablet, Refills 11, Tot. Refills 11, Maintenance, 12/06/21 19:06:00 EDT, Route to Pharmacy Electronically, [facility]/pharmacy #[id number], Partial fill upon patient request if the prescription is for a schedule I... Start Date: 12/06/21 Status: Ordered Genvoya oral tablet 1 tablet, By Mouth, Daily, with food, please get labs before refills, # 90 tablet, 3 Refills, Maintenance, 11/28/21 12:10:00 EDT, Tablet, [facility], Partial fill upon patient request if the prescription is for a schedule II opioid dr... Start Date: 11/28/21 Status: Ordered hydrochlorothiazide-olmesartan 25 mg-40 mg oral tablet 1 tablet, By Mouth, Daily, # 30 tablet, 4 Refills, Maintenance, 04/04/22 19:39:00 EST, Tablet, [facility], d/c HCTZ/lisinopril, 1 tablet By Mouth Daily, 167.6, cm, 04/04/22 19:29:00 EST, Height, 69.3, kg, 02/02/21 13:00:00 EDT, Dry We... Start Date: 04/04/22 Status: Ordered metroNIDAZOLE 0.75% topical gel 1 applicator, Vaginally, Daily, # 70 Gm, 0 Refills, Maintenance, 11/20/21 14:08:00 EDT, [facility], Partial fill upon patient request if the prescription is for a schedule II opioid drug., 1 applicator Vaginally Daily,x5 days, 167.6,... Start Date: 11/20/21 Stop Date: 11/25/21 Status: Ordered MiraLax oral powder for reconstitution = 17 Gm, By Mouth, Daily, PRN Constipation, dissolve in water before taking, # 527 Gm, 11 Refills, Maintenance, 03/29/22 11:16:00 EST, REC Powder, [facility], Partial fill upon patient request if the prescription is for a schedule II... Start Date: 03/29/22 Status: Ordered mirtazapine 15 mg oral tablet 1 tablet = 15 mg, By Mouth, Daily at bedtime, please get labs before refills, # 30 tablet, 11 Refills, Maintenance, 03/28/22 20:40:00 EST, Tablet, [facility], increase dose, 167.6, cm, 03/05/22 [...] Refills, Soft Stop, 06/06/22 10:12:00 EST, Powder[facility] fill upon patient request if the prescription is for a schedule II opioid drug., 0.5 mL Int... Start Date: 06/06/22 Status: Ordered Thera oral tablet 1 tablet, By Mouth, Daily, # 30 tablet, 11 Refills, Maintenance, 03/29/22 11:15:00 EST, Tablet, [facility], Partial fill upon patient request if the prescription is for a schedule IIopioid drug., 1 tablet By Mouth Daily, 167.6, cm, 1... Start Date: 03/29/22 Status: Ordered Wellbutrin XL 300 mg/24 hours oral tablet, extended release 1 tablet = 300 mg, By Mouth, Daily, # 30 tablet, 4 Refills, Maintenance, 04/04/22 19:36:00 EST, ER Tablet, [facility], Partial fill upon patient request if the prescription is for a schedule II opioid drug., 167.6, cm, 04/04/22 19:29:... 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 [phone] Confirmed Active Mild recurrent major depression Confirmed Active Urinary incontinence Confirmed Active 1EGD 07/2010 - likely apthous ulcers with very morbid 2 weeks of weight loss and requiring IV fluids Social History Social History Type Response Smoking Status Never smoker; Tobacc o user in household: No entered on: 01/26/15 Sex Patient Care team information Care Team Personnel Name: Jaky Nicole RN Position: [facility] RN Member Role: Primary Care Nurse Name: Rhea Heard Position: S RN Member Role: Primary Care Nurse Name: Shala Shields MD Position: [facility] Primary Care Physician Member Role: PCP Address: Address: [address] [place] [address], [place] [address]- Name: Kassi Wang RN Position: [facility] RN Member Role: Primary Care Nurse Name: Isabell David RN Position: [facility] SN RN Member Role: Primary Care Nurse Care Team Related Persons Name: REYES OSHEA Address: home [address] [facility] [address] [place] [id number] Name: SHANIKA ZAVALA Address: home [address] [place] [address]
--- OUTSIDE RECORDS SUMMARY | 2023-11-18 06:41 | XMS_ITS | Continuity of Care Document ---
Author Organization [facility] Address [address] [place] [address]- Care Team Providers Care Lease Picker Name Role Phone Timmy MERCER, Daphney Heard Primary Care Physician Encounter [facility] [place] Date(s): 09/09/19 - 09/16/19 [facility] [address] [place] [address]- Attending Physician: Darío Diehl MD Admitting Physician: Shala Shields MD Allergies, [...] 2 Refills, Maintenance, 05/18/19 11:15:00 EST, Tablet, [facility] Please deliver, 170, cm, 04/21/19 16:03:00 EST, Height Start Date: 05/18/19 Stop Date: 08/16/19 Status: Ordered doxepin 25 mg oral capsule 3 capsule = 75 mg, By Mouth, Daily at bedtime, Please fill today, # 90 capsule, 5 Refills, Maintenance, 05/18/19 11:13:00 EST, Capsule, [facility] 170, cm, 04/21/19 16:03:00 EST, [...] 2 Refills, Maintenance, 05/18/19 11:15:00 EST, Tablet, [facility], Please deliver, 1 tablet By Mouth [...] 05/18/19 11:13:00 EST, Route to Pharmacy Electronically, [facility], Please fill today, 170, cm, 04/21/19 [...] 04/21/19 16:44:15 EST, Route to Pharmacy Electronically, [id number], [facility], 170, cm, 04/21/19 16:03:00 EST, Height Start Date: 04/21/19 Status: Ordered Vitamin D 94848 iu oral capsule 50,000 International_Units, 1, capsule, By Mouth, Every week, # 5 capsule, Refills 2, Tot. Refills 2, Maintenance, 05/18/19 11:14:00 EST, Route to Pharmacy Electronically, [facility],170, cm, 04/21/19 16:03:00 EST, Height Start [...]
--- OUTSIDE RECORDS SUMMARY | 2023-11-18 06:41 | XMS_ITS | Continuity of Care Document ---
Author Organization [facility] Address [address] [place] [address]- Care Team Providers Care Beveler Name Role Phone Shala Shields MD Primary Care Physician [place] [facility] [place] 04/09[place]22 - 06/08/22 [facility] [address] [place] [address]- Attending Physician: Shala Shields MD Admitting Physician: [...] GIVEN DATED: 11/18/11 8Admin Note: VIS GIVEN DANISH 2011-04 9Admin Note: vis given vis date 12/26/2009 10Admin Note: Prevnar 11Admin Note: VIS GIVEN VIS DATE 03/26 Medications acetaminophen 325 mg oral tablet 650 mg, 2, tablet, By Mouth, 3 times a day, PRN, # 180 tablet, Refills 11, Tot. Refills 11, Maintenance, as needed for fever, 01/28/22 14:53:00 EDT, Route to Pharmacy Electronically, [facility], Partial fill upon patient request [...] mL, 11 Refills, Maintenance, 03/29/22 11:16:00 EST, [facility], replaced tablets by suspension, 167.6, cm, 03/05/22 9:57:00 EDT, Height, 69.3, kg, 02/02/21 13:00:... Start Date: 03/29/22 Stop Date: 02/28/23 Status: Ordered Colace sodium 100 mg oral capsule 100 mg, 1, capsule, By Mouth, 2 times a day, PRN, # 60 capsule, Refills 11, Tot. Refills 11, Maintenance, for constipation, 03/29/22 11:16:00 EST, [facility], Partial fill upon patient request if the... Start Date: 03/29/22 Status: Ordered darunavir 800 mg oral tablet 1 tablet = 800 mg, By Mouth, Daily, with food, please get labs before refills, # 90 tablet, 3 Refills, Maintenance, 11/28/21 12:11:00 EDT, Tablet, [facility], Partial fill upon patient request if the prescription is for a schedule II... Start Date: 11/28/21 Status: Ordered diclofenac 1% topical gel 1 application, Topically, 4 times a day, # 100 Gm, 11 Refills, Maintenance, 12/06/21 19:06:00 EDT, Gel, [facility]/pharmacy #[id number], Partial fill upon patient request if the prescription is for a schedule II opioid drug., 167.6, cm, 12/06/21 18:07:00 EDT, [place]... Start Date: 12/06/21 Status: Ordered duloxetine 60 mg oral enteric coated capsule 1 capsule = 60 mg, By Mouth, Daily, # 30 capsule, 11 Refills, Maintenance, 03/05/22 12:42:00 EDT, EC Capsule, [facility], Partial fill upon patient request if the prescription is fora schedule II opioid drug., 167.6, cm, 03/05/22 9:5... Start Date: 03/05/22 Status: Ordered ferrous sulfate 325 mg oral enteric coated tablet 325 mg, 1, tablet, By Mouth, Every other day, # 30 tablet, Refills 11, Tot. Refills 11, Maintenance, 12/06/21 19:06:00 EDT, Route to Pharmacy Electronically, [facility]/pharmacy #[id number], Partial fill upon patient request if the prescription is for a schedule I... Start Date: 12/06/21 Status: Ordered Genvoya oral tablet 1 tablet, By Mouth, Daily, with food, please get labs before refills, # 90 tablet, 3 Refills, Maintenance, 11/28/21 12:10:00 EDT, Tablet, [facility], Partial fill upon patient request if the prescription is for a schedule II opioid dr... Start Date: 11/28/21 Status: Ordered hydrochlorothiazide-olmesartan 25 mg-40 mg oral tablet 1 tablet, By Mouth, Daily, # 30 tablet, 4 Refills, Maintenance, 04/04/22 19:39:00 EST, Tablet, [facility], d/c HCTZ/lisinopril, 1 tablet By Mouth Daily, 167.6, cm, 04/04/22 19:29:00 EST, Height, 69.3, kg, 02/02/21 13:00:00 EDT, Dry We... Start Date: 04/04/22 Status: Ordered metroNIDAZOLE 0.75% topical gel 1 applicator, Vaginally, Daily, # 70 Gm, 0 Refills, Maintenance, 11/20/21 14:08:00 EDT, [facility], Partial fill upon patient request if the prescription is for a schedule II opioid drug., 1 applicator Vaginally Daily,x5 days, 167.6,... Start Date: 11/20/21 Stop Date: 11/25/21 Status: Ordered MiraLax oral powder for reconstitution = 17 Gm, By Mouth, Daily, PRN Constipation, dissolve in water before taking, # 527 Gm, 11 Refills, Maintenance, 03/29/22 11:16:00 EST, REC Powder, [facility], Partial fill upon patient request if the prescription is for a schedule II... Start Date: 03/29/22 Status: Ordered mirtazapine 15 mg oral tablet 1 tablet = 15 mg, By Mouth, Daily at bedtime, please get labs before refills, # 30 tablet, 11 Refills, Maintenance, 03/28/22 20:40:00 EST, Tablet, [facility], increase dose, 167.6, cm, 03/05/22 [...] Refills, Soft Stop, 06/06/22 10:12:00 EST, [facility]der[facility] Partial fill upon patient request if the prescription is for a schedule II opioid drug., 0.5 mL Int... Start Date: 06/06/22 Status: Ordered Thera oral tablet 1 tablet, By Mouth, Daily, # 30 tablet, 11 Refills, Maintenance, 03/29/22 11:15:00 EST, Tablet, [facility], Partial fill upon patient request if the prescription is for a schedule IIopioid drug., 1 tablet By Mouth Daily, 167.6, cm, 1... Start Date: 03/29/22 Status: Ordered Wellbutrin XL 300 mg/24 hours oral tablet, extended release 1 tablet = 300 mg, By Mouth, Daily, # 30 tablet, 4 Refills, Maintenance, 04/04/22 19:36:00 EST, ER Tablet, [facility], Partial fill upon patient request if the prescription is for a schedule II opioid drug., 167.6, cm, 04/04/22 19:29:... 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 [phone] Confirmed Active Mild recurrent major depression Confirmed Active Urinary incontinence Confirmed Active 1EGD 07/2010 - likely apthous ulcers with very morbid 2 weeks of weight loss and requiring IV fluids Social History Social History Type Response Smoking Status Never smoker; Tobacc o user in household: No entered on: 01/26/15 Sex Patient Care team information Care Team Personnel Name: Jaky Nicole RN Position: [facility] RN Member Role: Primary Care Nurse Name: Rhea Heard Position: [facility] RN Member Role: Primary Care Nurse Name: Shala Shields MD Position: [facility] Primary Care Physician Member Role: PCP Address: Address: [address] [place] [address], [place] [address]- Name: Kassi Wang RN Position: [facility] RN Member Role: Primary Care Nurse Name: Isabell David RN Position: [facility] SN RN Member Role: Primary Care Nurse Care Team Related Persons Name: REYES OSHEA Address: home [address] [place] [address] Name: SHANIKA ZAVALA Address: home [address] [place] [address]
--- OUTSIDE RECORDS SUMMARY | 2023-11-18 06:41 | XMS_ITS | Continuity of Care Document ---
Author Organization [facility] Address [address] [place] [address]- Care Team Providers Care Wildlife Rehabilitator Name Role Phone Cornelius REDDY, Shala Kuo Primary Care Physician [facility]counter [facility] Date(s): 08/05/23 - 09/18/23 [facility] [address] [place], [place] [phone] Attending Physician: Not on Staff, Attending MD [...] 1 Refills, Maintenance, 04/25/23 11:55:00 EST, Tablet, [facility], Partial fill upon patient request if the prescription is for a... Start Date: 04/25/23 Status: Ordered diclofenac 1% topical gel 1 application, Topically, 4 times a day, # 100 Gm, 11 Refills, Maintenance, 09/18/22 15:52:00 EDT, Gel, [facility], Partial fill upon patient request if the prescription is for a schedule II opioid drug., 167.6, cm, 07/04/22 16:00:00... Start Date: 09/18/22 Status: Ordered duloxetine 60 mg oral enteric coated capsule 1 capsule = 60 mg, By Mouth, Daily, start with duloxetine 30mg daily x 2 weeks then duloxetine 60mgdaily;, # 30 capsule, 4 Refills, Maintenance, 07/03/23 19:03:00 EST, EC Capsule, [facility], Partial fill upon patient request if the... Start Date: 07/03/23 Status: Ordered ferrous sulfate 325 mg oral enteric coated tablet 325 mg, 1, tablet, By Mouth, Daily, # 90 tablet, Refills 3, Tot. Refills 3, Maintenance, 08/26/23 9:38:00 EDT, Route to Pharmacy Electronically, [facility], Partial fill upon patientrequest if the prescription is for a schedule II op... Start Date: 08/26/23 Status: Ordered gabapentin 100 mg oral capsule 400 mg, 4, capsule, By Mouth, Daily at bedtime, PRN, 2 caps qHS x 1 week then 3 caps qHS x 1 week then 4 caps qHS, # 120 capsule, Refills 4, Tot. Refills 4, Maintenance, Anxiety, 09/11/23 19:19:00 EDT, Route to Pharmacy Electronically, [facility] Start Date: 09/11/23 Status: Ordered Genvoya oral tablet 1 tablet, By Mouth, Daily, with food, please get labs before refills; BUBBLE PACK, # 90 tablet, 1 Refills, Maintenance, 04/25/23 11:55:00 EST, Tablet, [facility], Partial fill upon patient request if the prescription is for a schedule... Start Date: 04/25/23 Status: Ordered hydrochlorothiazide-olmesartan 25 mg-40 mg oral tablet 0.5 tablet, By Mouth, Daily, # 15 tablet, 4 Refills, Maintenance, 08/07/23 15:23:00 EDT, Tablet, [facility]/pharmacy #[id number], decrease dose, 0.5 tablet By Mouth Daily, 167.6, cm, 08/05/23 9:50:00 EDT, Height Start Date: 08/07/23 Status: Ordered hydrOXYzine pamoate 25 mg oral capsule 1 capsule = 25 mg, By Mouth, 4 times a day, PRN for anxiety, # 120 capsule, 0 Refills, Maintenance,09/11/23 19:24:00 EDT, Capsule, [facility]/pharmacy #[id number], Partial fill upon patient request if the prescription is for a schedule II opioid drug., 167.6, cm,... Start Date: 09/11/23 Status: Ordered Lidoderm 5% film 2 patch, Topically, Daily, remove patches after 12 hours; 2 patches to pain areas; can cut patches in half; do not excede 2 patches., # 60 patch, 4 Refills, Maintenance, 03/06/23 15:42:00 EDT, [facility]/pharmacy #[id number], Partial fill upon patient request if t... Start Date: 03/06/23 Stop Date: 08/03/23 Status: Ordered meloxicam 7.5 mg oral tablet 1 tablet = 7.5 mg, By Mouth, Daily, [place] with acetaminophen, # 14 tablet, 0 Refills, Maintenance, 08/25/23 16:16:00 EDT, Tablet, [facility], Partial fill upon patient [...] 4 Refills, Maintenance, 07/28/23 16:46:00 EDT, Tablet, [facility]/pharmacy #[id number], Partial fill upon patient request if [...] Refills, Maintenance, 07/03/23 18:52:00 EST, REC Powder, [facility], Partial fill upon patient request if the prescription is for a schedule II opioid drug., 17 Gm... Start Date: 07/03/23 Stop Date: 10/01/23 Status: Ordered Thera oral tablet 1 tablet, By Mouth, Daily, # 90 tablet, 3 Refills, Maintenance, 08/26/23 9:38:00 EDT, Tablet, [facility], Partial fill upon patient [...] 10/08/23 15:45:00 EDT, 09/10/23 15:45:00 EDT, Tablet, [facility], Partial fill upon patient... Start Date: 09/10/23 Stop Date: 10/08/23 Status: Ordered Vitamin D3 1000 intl units oral capsule 1 capsule = 25 mcg, By Mouth, Daily, # 90 capsule, 3 Refills, Maintenance, 07/03/23 19:05:00 EST, Capsule, [facility], Partial fill upon patient [...] pubis OA, left Confirmed Active *Catalina Diaz Local Telephone Operator-[facility] [phone] Confirmed Active Depression, Mild recurrent major Confirmed Active Rosacea Confirmed Active Urinary incontinence Confirmed Active Social History Social History Type Response Tobacco Use: Rolls weed in l eaf tabacco . Sex Patient Care team information Care Team Personnel Name: Jaky Nicole RN Position: [facility] RN Member Role: Primary Care Nurse Name: Rhea Brooks Position: [facility] RN Member Role: Primary Care Nurse Name: Shala Shields MD Position: [facility] Physician - Primary Care Member Role: PCP Address: Address: [address] [place] [address]- Name: Kassi Wang RN Position: [facility] RN Member Role: Primary Care Nurse Name: Isabell David RN Position: [facility] ERNESTO Office Staff Member Role: Primary Care Nurse Care Team Related Persons Name: REYES OSHEA Address: [address] [address] Name: SHANIKA ZAVALA Address: home [address] [place] [address]
--- OUTSIDE RECORDS SUMMARY | 2023-11-18 06:41 | XMS_ITS | Continuity of Care Document ---
Author Organization [facility] Address [address] [place] [address]- Care Team Providers Care Profiler Operator Name Role Phone Shala Shields MD Primary Care Physician [facility]counter [facility] Date(s): 05/13/23 - 06/12/23 [facility] [address] [place] [id number] Allergies, Adverse Reactions, Alerts Substance Reaction Severity [...] GIVEN DATED: 11/18/11 8Admin Note: VIS GIVEN NIUEAN 2011-04 9Admin Note: vis given vis date 12/26/2009 10Admin Note: Prevnar 11Admin Note: VIS GIVEN VIS DATE 03/26 Medications acetaminophen 325 mg oral tablet 650 mg, 2, tablet, By Mouth, 3 times a day, PRN, # 540 tablet, Refills 3, Tot. Refills 3, Maintenance, as needed for fever, 02/20/23 13:39:00 EDT, Route to Pharmacy Electronically, [facility], Partial fill upon patient request if the prescri... Start Date: 02/20/23 Status: Ordered Bactrim 400 mg-80 mg oral tablet 1 tablet, By Mouth, Daily, BUBBLE PACK, # 90 tablet, 1 Refills, Maintenance, 02/20/23 13:37:00 EDT,Tablet, [facility], Partial fill upon patient request if [...] mL, 11 Refills, Maintenance, 09/18/22 15:52:00 EDT, [facility], replaced tablets by suspension, 167.6, cm, [...] 1 Refills, Maintenance, 04/25/23 11:55:00 EST, Tablet, [facility], Partial fill upon patient request if the prescription is for a... Start Date: 04/25/23 Status: Ordered diclofenac 1% topical gel 1 application, Topically, 4 times a day, # 100 Gm, 11 Refills, Maintenance, 09/18/22 15:52:00 EDT, Gel, [facility], Partial fill upon patient request if the prescription is for a schedule II opioid drug., 167.6, cm, 07/04/22 16:00:00... Start Date: 09/18/22 Status: Ordered duloxetine 30 mg oral enteric coated capsule 1 capsule = 30 mg, By Mouth, Daily, start with duloxetine 30mg daily x 2 weeks then duloxetine 60mgdaily; BUBBLE PACK, # 14 capsule, 0 Refills, Maintenance, 02/20/23 13:46:00 EDT, [facility], Partial fill upon patient request if the prescri... Start Date: 02/20/23 Stop Date: 03/06/23 Status: Ordered duloxetine 60 mg oral enteric coated capsule 1 capsule = 60 mg, By Mouth, Daily, start with duloxetine 30mg daily x 2 weeks then duloxetine 60mgdaily; BUBBLE PACK, # 30 capsule, 4 Refills, Maintenance, 02/20/23 13:46:00 EDT, EC Capsule, [facility], Partial fill upon patient request if... Start Date: 02/20/23 Status: Ordered ferrous sulfate 325 mg oral enteric coated tablet 325 mg, 1, tablet, By Mouth, Every other day, BUBBLE PACK, # 45 tablet, Refills 3, Tot. Refills 3, Maintenance, 02/20/23 13:37:00 EDT, Route to Pharmacy Electronically, [facility], Partial fill upon patient request if the prescription is for... Start Date: 02/20/23 Status: Ordered Genvoya oral tablet 1 tablet, By Mouth, Daily, with food, please get labs before refills; BUBBLE PACK, # 90 tablet, 1 Refills, Maintenance, 04/25/23 11:55:00 EST, Tablet, [facility], Partial fill upon patient request if the prescription is for a schedule... Start Date: 04/25/23 Status: Ordered hydrochlorothiazide-olmesartan 25 mg-40 mg oral tablet 1 tablet, By Mouth, Daily, BUBBLE PACK, # 90 tablet, 3 Refills, Maintenance, 02/20/23 13:37:00 EDT,Tablet, [facility], d/c HCTZ/lisinopril, 1 tablet By Mouth Daily,Instr:BUBBLE PACK, 167.6, cm, 12/23/22 8:35:00 EDT, Height Start Date: 02/20/23 Status: Ordered Lidoderm 5% film 2 patch, Topically, Daily, remove patches after 12 hours; 2 patches to pain areas; can cut patches in half; do not excede 2 patches., # 60 patch, 4 Refills, Maintenance, 03/06/23 15:42:00 EDT, [facility]/pharmacy #[id number], Partial fill upon patient request if t... Start Date: 03/06/23 Stop Date: 08/03/23 Status: Ordered MetroGel 1% topical gel 1 application, Topically, Daily, PRN facial rash, # 60 Gm, 11 Refills, Maintenance, 12/23/22 8:40:00 EDT, Gel, [facility], Partial fill upon patient request if the prescription is for a schedule II opioid drug., 1 application Topicall... Start Date: 12/23/22 Status: Ordered MiraLax oral powder for reconstitution = 17 Gm, By Mouth, Daily, PRN Constipation, dissolve in water before taking, # 527 Gm, 11 Refills, Maintenance, 02/20/23 13:39:00 EDT, REC Powder, [facility], Partial fill upon patient request if [...] Refills, Soft Stop, 12/23/22 8:46:00 EDT, Powder, [facility], Partial fill upon patient request if the prescription is for a schedule II opioid drug., 0.5 mL Int... Start Date: 12/23/22 Status: Ordered Thera oral tablet 1 tablet, By Mouth, Daily, BUBBLE PACK, # 90 tablet, 3 Refills, Maintenance, 02/20/23 13:37:00 EDT,Tablet, [facility], Partial fill upon patient [...] pubis OA, left Confirmed Active *Catalina Diaz Ibm Mainframe Developer-[facility] [phone] Confirmed Active Mild recurrent major depression Confirmed [...] Care Nurse Name: Shala Shields MD Position: [facility] Physician - Primary Care Member Role: PCP Address: Address: [address] [place] [address] [place] [address]- Name: Kassi Wang RN Position: S RN Member Role: Primary Care Nurse Name: Isabell David RN Position: [facility] SN RN Member Role: Primary Care Nurse Care Team Related Persons Name: OSHEA, REYES Address: home [address] [place] [id number] Name: SHANIKA ZAVALA Address: home [address] [place] [address]
--- OUTSIDE RECORDS SUMMARY | 2023-11-18 06:41 | XMS_ITS | Continuity of Care Document ---
Author Organization [facility] y Address [address] [place] [address]- Care Team Providers Care Memorial Adviser Name Role Phone Cornelius REDDY, Shala Kuo Primary Care Physician [phone] [facility]counter [facility] Date[facility]s): 08/07/21 - 09/08/21 [facility] [address] [place], [place] [address] Attending Physician: Darío Diehl MD Admitting Physician: [...] 02/08/21 20:01:00 EDT, Route to Pharmacy Electronically, [facility]/pharmacy #[id number], Partial fill upon patient request if the [...] Refills, Maintenance, 02/08/21 20:01:00 EDT, REC Powder, [facility]/pharmacy #[id number], Partial fill upon patient request if the prescription is for a schedule II opioid dr.[place]on. Start Date: 02/08/21 Status: Ordered mirtazapine 15 mg oral tablet 1 tablet = 15 mg, By Mouth, Daily at bedtime, # 30 tablet, 4 Refills, Maintenance, 02/19/21 16:53:00 EDT, Tablet, [facility], increase dose, 167.6, cm, 02/19/21 16:01:00 EDT, Height,69.3, kg, 02/02/21 13:00:00 EDT, Dry Weight Start Date: 02/19/21 Stop Date: 07/19/21 Status: [facility], Maintenance, Calcium/Mg/ Zinc [...] 10:56:00 EDT, 12/19/20 10:56:00 EDT, REC Powder, [facility]/pharmacy #[id number], Partial fill upon patient request... Start Date: 12/19/20 Stop Date: 12/16/21 Status: Ordered Thera oral tablet 1 tablet, By Mouth, Daily, # 30 tablet, 11 Refills, Maintenance, 03/09/21 16:13:00 EDT, Tablet, [facility], Partial fill upon patient request if the prescription is for a schedule IIopioid drug., 1 tablet By Mouth Daily, 167.6, cm, 1... Start Date: 03/09/21 Status: Ordered Tylenol 325 mg oral tablet 650 mg, 2, tablet, By Mouth, Every 4 hours, PRN, # 24 tablet, Refills 1, Tot. Refills 1, Maintenance, for fever, 02/02/21 14:41:00 EDT, Route to Pharmacy Electronically, [facility]/pharmacy #[id number], Partial fill upon patient request if the [...]
--- OUTSIDE RECORDS SUMMARY | 2023-11-18 06:41 | XMS_ITS | Continuity of Care Document ---
Author Organization [facility] y Address [address] [place] [address]- Care Team Providers Care Pulmonologist/Intensivist Name Role Phone Shala Shields MD Primary Care Physician [phone] [facility] Date(s): 06/26/22 - 07/26/22 [facility] [address] [place], [place] [address] Attending Physician: AdmJairo he Admitting Physician: AdmtrJairo Referring Physician: [id number] Allergies, Adverse Reactions, Alerts Substance Reaction Severity [...] 23-valent vaccine 04/27/13 Given SARS-CoV-2 (COVID-19) mRNA BNT-162h2 vac 03/08/21 Given SARS-CoV-2 (COVID-19) mRNA BNT-162b2 vac 02/15/21 Given pneumococcal 13-valent vaccine 10 05/21/17 Given tetanus/diphtheria/pertussis, acel(Tdap) 11 03/20/10 Given 1Admin Note: Influenza vaccine 2Admin Note: Influenza vaccine 3Admin Note: Influenza vaccine 4Admin Note: Influenza vaccine 5Admin Note: Influenza vaccine 6Admin Note: vis given 12/11/2012 7Admin Note: VIS GIVEN DATED: 11/18/11 8Admin Note: VIS GIVEN JAPANESE 2011-04 9Admin Note: vis given vis date 12/26/2009 10Admin Note: Prevnar 11Admin Note: VIS GIVEN VIS DATE 03/26 Medications acetaminophen 325 mg oral tablet 650 mg, 2, tablet, By Mouth, 3 times a day, PRN, # 180 tablet, Refills 11, Tot. Refills 11, Maintenance, as needed for fever, 01/28/22 14:53:00 EDT, Route to Pharmacy Electronically, [facility], Partial fill upon patient request [...] mL, 11 Refills, Maintenance, 03/29/22 11:16:00 EST, [facility], replaced tablets by suspension, 167.6, cm, 03/05/22 9:57:00 EDT, Height, 69.3, kg, 02/02/21 13:00:... Start Date: 03/29/22 Stop Date: 02/28/23 Status: Ordered Colace sodium 100 mg oral capsule 100 mg, 1, capsule, By Mouth, 2 times a day, PRN, # 60 capsule, Refills 11, Tot. Refills 11, Maintenance, for constipation, 03/29/22 11:16:00 EST, Route to [facility]ically, [facility], Partial fill upon patient request if the... Start Date: 03/29/22 Status: Ordered darunavir 800 mg oral tablet 1 tablet = 800 mg, By Mouth, Daily, with food, please get labs before refills, # 90 tablet, 3 Refills, Maintenance, 11/28/21 12:11:00 EDT, Tablet, [facility], Partial fill upon patient request if the prescription is for a schedule II... Start Date: 11/28/21 Status: Ordered diclofenac 1% topical gel 1 application, Topically, 4 times a day, # 100 Gm, 11 Refills, Maintenance, 12/06/21 19:06:00 EDT, Gel, [facility]/pharmacy #[id number], Partial fill upon patient request if the prescription is for a schedule II opioid drug., 167.6, cm, 12/06/21 18:07:00 EDT, Heig... Start Date: 12/06/21 Status: Ordered duloxetine 60 mg oral enteric coated capsule 1 capsule = 60 mg, By Mouth, Daily, # 30 capsule, 11 Refills, Maintenance, 03/05/22 12:42:00 EDT, EC Capsule, [facility], Partial fill upon patient request if the prescription is fora schedule II opioid drug., 167.6, cm, 03/05/22 9:5... Start Date: 03/05/22 Status: Ordered ferrous sulfate 325 mg oral enteric coated tablet 325 mg, 1, tablet, By Mouth, Every other day, # 30 tablet, Refills 11, Tot. Refills 11, Maintenance, 12/06/21 19:06:00 EDT, Route to Pharmacy Electronically, [facility]/pharmacy #[id number], Partial fill upon patient request if the prescription is for a schedule I... Start Date: 12/06/21 Status: Ordered Genvoya oral tablet 1 tablet, By Mouth, Daily, with food, please get labs before refills, # 90 tablet, 3 Refills, Maintenance, 11/28/21 12:10:00 EDT, Tablet, [facility], Partial fill upon patient request if the prescription is for a schedule II opioid dr... Start Date: 11/28/21 Status: Ordered hydrochlorothiazide-olmesartan 25 mg-40 mg oral tablet 1 tablet, By Mouth, Daily, # 30 tablet, 4 Refills, Maintenance, 04/04/22 19:39:00 EST, Tablet, [facility], d/c HCTZ/lisinopril, 1 tablet By Mouth Daily, 167.6, cm, 04/04/22 19:29:00 EST, Height, 69.3, kg, 02/02/21 13:00:00 EDT, Dry We... Start Date: 04/04/22 Status: Ordered metroNIDAZOLE 0.75% topical gel 1 applicator, Vaginally, Daily, # 70 Gm, 0 Refills, Maintenance, 11/20/21 14:08:00 EDT, [facility], Partial fill upon patient request if the prescription is for a schedule II opioid drug., 1 applicator Vaginally Daily,x5 days, 167.6,... Start Date: 11/20/21 Stop Date: 11/25/21 Status: Ordered MiraLax oral powder for reconstitution = 17 Gm, By Mouth, Daily, PRN Constipation, dissolve in water before taking, # 527 Gm, 11 Refills, Maintenance, 03/29/22 11:16:00 EST, REC Powder, [facility], Partial fill upon patient request if the prescription is for a schedule II... Start Date: 03/29/22 Status: Ordered mirtazapine 15 mg oral tablet 1 tablet = 15 mg, By Mouth, Daily at bedtime, please get labs before refills, # 30 tablet, 11 Refills, Maintenance, 03/28/22 20:40:00 EST, Tablet, [facility], increase dose, 167.6, cm, 03/05/22 9:57:00 [...] Refills, Soft Stop, 06/06/22 10:12:00 EST, Powder[facility] Partial fill upon patient request if the prescription is for a schedule II opioid drug., 0.5 mL Int... Start Date: 06/06/22 Status: Ordered Thera oral tablet 1 tablet, By Mouth, Daily, # 30 tablet, 11 Refills, Maintenance, 03/29/22 11:15:00 EST, Tablet, [facility], Partial fill upon patient request if the prescription is for a schedule IIopioid drug., 1 tablet By Mouth Daily, 167.6, cm, 1... Start Date: 03/29/22 Status: Ordered Wellbutrin XL 300 mg/24 hours oral tablet, extended release 1 tablet = 300 mg, By Mouth, Daily, # 30 tablet, 4 Refills, Maintenance, 04/04/22 19:36:00 EST, ER Tablet, [facility], Partial fill upon patient request if the prescription is for a schedule II opioid drug., 167.6, cm, 04/04/22 19:29:... 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, CMV ulcer Confirmed Active Fibromyalgia Confirmed Active Abnormal uterine bleeding Confirmed Active Hip pain Confirmed Active HSV Confirmed Active HIV disease Confirmed Active Hypertension Confirmed Active Iron deficiency anemia Confirmed Active *Catalina Diaz Senior Architect/Design Manager-[facility] [phone] Confirmed Active Mild recurrent major depression Confirmed [...] Primary Care Nurse Name: Rhea Heard Position: [facility] RN Member Role: Primary Care Nurse Name: Shala Shields MD Position: [facility] Primary Care Physician Member Role: PCP Address: Address: [address] [place] [address], [place] [address]- Name: Kassi Wang RN Position: [facility] RN Member Role: Primary Care Nurse Name: Isabell David RN Position: [facility] SN RN Member Role: Primary Care Nurse Care Team Related Persons Name: REYES OSHEA Address: home [address] [place] [id number] Name: SHANIKA ZAVALA Address: home [address] [place] [address]
--- OUTSIDE RECORDS SUMMARY | 2023-11-18 06:42 | XMS_ITS | Continuity of Care Document ---
Author Organization [facility] Address [address] [place] [address]- Care Team Providers Care Rotary Drier Name Role Phone Shala Shields MD Primary Care Physician [facility]counter [facility] Date(s): 07/05/21 - 08/11/21 [facility] [address] [place] [address] Attending Physician: Shala Shields MD Admitting Physician: [...] GIVEN DATED: 11/18/11 8Admin Note: VIS GIVEN BULGARIAN 2011-04 9Admin Note: vis given vis date 12/26/2009 10Admin Note: Prevnar 11Admin Note: VIS GIVEN VIS DATE 03/26 Medications Bactrim DS 800 mg-160 mg oral tablet 1 tablet, By Mouth, Daily, # 30 tablet, 5 Refills, Maintenance, 01/25/21 10:04:00 EDT, Tablet, [facility], Partial [...] mL, 11 Refills, Maintenance, 02/02/21 17:36:00 EDT, [facility], replaced tablets by suspension, 167.6, cm, 02/02/21 13:00:00 EDT, Height, 69.3, kg, 02/02/21 13:00... Start Date: 02/02/21 Stop Date: 01/04/22 Status: Ordered Chloraseptic Vazquez 1.4% topical spray 1 sprays, By Mouth, Every 2 hours, for 7 days, prn sore throat, # 180 mL, 0 Refills, Acute 08/14/2210:29:00 EDT, 08/07/21 11:29:00 EDT, [facility] fill upon patient request if the prescription is for a schedule II opioid drug... Start Date: 08/07/21 Stop Date: 08/14/21 Status: Ordered Colace sodium 100 mg oral capsule 100 mg, 1, capsule, By Mouth, 2 times a day, PRN, # 60 capsule, Refills 11, Tot. Refills 11, Maintenance, for constipation, 02/08/21 20:01:00 EDT, [id number] Partial fill upon patient request if the [...] 167.6,cm, 02/19/21 16:01:00 EDT, Height, 69.3, kg, 09/17/... Start Date: 06/28/21 Status: Ordered MiraLax oral powder for reconstitution = 17 Gm, By Mouth, Daily, PRN Constipation, dissolve in water before taking, # 527 Gm, 11 Refills, Maintenance, 02/08/21 20:01:00 EDT, REC Powder, [facility]/pharmacy #[id number], Partial fill upon patient request if the prescription is for a schedule II opioid drShilo. Start Date: 02/08/21 Status: Ordered mirtazapine 15 mg oral tablet 1 tablet = 15 mg, By Mouth, Daily at bedtime, # 30 tablet, 4 Refills, Maintenance, 02/19/21 16:53:00 EDT, Tablet, [facility], increase dose, 167.6, cm, 02/19/21 [...] EDT, 12/19/20 10:56:00 EDT, REC Powder, [facility]/pharmacy #[id number], Partial fill upon patient request... Start Date: 12/19/20 Stop Date: 12/16/21 Status: Ordered Thera oral tablet 1 tablet, By Mouth, Daily, # 30 tablet, 11 Refills, Maintenance, 03/09/21 16:13:00 EDT, Tablet, [facility], Partial [...] 14:41:00 EDT, Route to Pharmacy Electronically, [facility]/pharmacy #[id number], Partial fill upon patient request if the [...]
--- OUTSIDE RECORDS SUMMARY | 2023-11-18 06:42 | XMS_ITS | Continuity of Care Document ---
Author Organization [facility] Address [address] [place] [address]- Care Team Providers Care Transfer Iron Operator Name Role Phone Cornelius REDDY, Shala Kuo Primary Care Physician [phone] Encounter [facility] Date(s): 08/11/23 - 09/10/23 [facility] [address] [place], [place] [phone] Allergies, Adverse Reactions, Alerts Substance Reaction Severity [...] GIVEN DATED: 11/18/11 8Admin Note: VIS GIVEN TURKMEN 2011-04 9Admin Note: vis given vis date [...] 1 Refills, Maintenance, 04/25/23 11:55:00 EST, Tablet, [facility], Partial fill upon patient request if the prescription is for a... Start Date: 04/25/23 Status: Ordered diclofenac 1% topical gel 1 application, Topically, 4 times a day, # 100 Gm, 11 Refills, Maintenance, 09/18/22 15:52:00 EDT, Gel, [facility], Partial fill upon patient [...] Refills, Maintenance, 07/03/23 19:03:00 EST, EC Capsule, [facility], Partial fill upon patient request if the... Start Date: 07/03/23 Status: Ordered ferrous sulfate 325 mg oral enteric coated tablet 325 mg, 1, tablet, By Mouth, Daily, # 90 tablet, Refills 3, Tot. Refills 3, Maintenance, 08/26/23 9:38:00 EDT, Route to Pharmacy Electronically, [facility], Partial fill upon patientrequest if the prescription is for a schedule II op... Start Date: 08/26/23 Status: Ordered gabapentin 100 mg oral capsule 100 mg, 1, capsule, By Mouth, Daily at bedtime, PRN, # 30 capsule, Refills 4, Tot. Refills 4, Maintenance, Anxiety, 08/05/23 10:19:00 EDT, Route to Pharmacy Electronically, [facility], Partial fill upon patient request if the prescrip... Start Date: 08/05/23 Stop Date: 08/12/23 Status: Ordered Genvoya oral tablet 1 tablet, By Mouth, Daily, with food, please get labs before refills; BUBBLE PACK, # 90 tablet, 1 Refills, Maintenance, 04/25/23 11:55:00 EST, Tablet, [facility], Partial fill upon patient request if the prescription is for a schedule... Start Date: 04/25/23 Status: Ordered hydrochlorothiazide-olmesartan 25 mg-40 mg oral tablet 0.5 tablet, By Mouth, Daily, # 15 tablet, 4 Refills, Maintenance, 08/07/23 15:23:00 EDT, Tablet, [facility]/pharmacy #[id number], decrease dose, 0.5 tablet By Mouth Daily, 167.6, cm, 08/05/23 9:50:00 EDT, Height Start Date: 08/07/23 Status: Ordered Lidoderm 5% film 2 patch, Topically, Daily, remove patches after 12 hours; 2 patches to pain areas; can cut patches in half; do not excede 2 patches., # 60 patch, 4 Refills, Maintenance, 03/06/23 15:42:00 EDT, [facility]/pharmacy #[id number], Partial fill upon patient request if t... Start Date: 03/06/23 Stop Date: 08/03/23 Status: Ordered meloxicam 7.5 mg oral tablet 1 tablet = 7.5 mg, By Mouth, Daily, [place]ke with acetaminophen, # 14 tablet, 0 Refills, Maintenance, 08/25/23 16:16:00 EDT, Tablet, [facility], Partial fill upon patient request if theprescription is for a schedule II opioid drug., 167... Start Date: 08/25/23 Stop Date: 09/08/23 Status: Ordered [facility] Refills 0, Maintenance, Calcium/Mg/ Zinc 1 tablet daily, 01/23/21 17:47:00 EDT, Supply Start Date: 01/23/21 Status: Ordered naltrexone 50 mg oral tablet 1 tablet = 50 mg, By Mouth, Daily, # 30 tablet, 4 Refills, Maintenance, 07/28/23 16:46:00 EDT, Tablet, [facility]/pharmacy #[id number], Partial fill upon patient request [...] Refills, Maintenance, 07/03/23 18:52:00 EST, REC Powder, [facility], Partial fill upon patient request if the prescription is for a schedule II opioid drug., 17 Gm... Start Date: 07/03/23 Stop Date: 10/01/23 Status: Ordered Thera oral tablet 1 tablet, By Mouth, Daily, # 90 tablet, 3 Refills, Maintenance, 08/26/23 9:38:00 EDT, Tablet, [facility], Partial fill upon patient [...] 10/08/23 15:45:00 EDT, 09/10/23 15:45:00 EDT, Tablet, [facility], Partial fill upon patient... 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 Sex Patient Care team information Care Team Personnel Name: Jaky Nicole RN Position: [facility] RN Member Role: Primary Care Nurse Name: Rhea Brooks Position: [facility] RN Member Role: Primary Care Nurse Name: Shala Shields MD Position: [facility] Physician - Primary Care Member Role: PCP Address: Address: [address] [place] [id number] Name: Kassi Wang RN Position: [facility] RN Member Role: Primary Care Nurse Name: Isabell David RN Position: [facility] ERNESTO Office Staff Member Role: Primary Care Nurse Care Team Related Persons Name: REYES OSHEA Address: home [address] [address] Name: SHANIKA ZAVALA Address: home [address] [facility] [place] [address]
--- OUTSIDE RECORDS SUMMARY | 2023-11-18 06:42 | XMS_ITS | Continuity of Care Document ---
Author Organization [facility] Address [address] [place] [address]- Care Team Providers Care Pulping Machine Operator Name Role Phone Shala Shields MD Primary Care Physician [facility]counter [facility] Date(s): 02/01/22 - 03/03/22 [facility] [address] [place], [place] [address] Allergies, Adverse Reactions, Alerts Substance Reaction Severity Status azithromycin 1 Persistent Mild Active rifabutin Rash Persistent Moderate Active amLODIPine 2 Active 1Rash 2Had Lower extremity ankle swelling with 10mg. Immunizations Given and Recorded Vaccine Date Status Refusal Reason influenza virus vaccine, inactivated 02/22/22 Give n [...] 01/28/22 14:53:00 EDT, Route to Pharmacy Electronically, [facility], Partial fill upon patient request [...] mL, 11 Refills, Maintenance, 02/02/21 17:36:00 EDT, [facility], replaced tablets by suspension, 167.6, cm, 02/02/21 13:00:00 EDT, Height, 69.3, kg, 02/02/21 13:00... Start Date: 02/02/21 Stop Date: 01/04/22 Status: Ordered Colace sodium 100 mg oral capsule 100 mg, 1, capsule, By Mouth, 2 times a day, PRN, # 60 capsule, Refills 11, Tot. Refills 11, Maintenance, for constipation, 02/08/21 20:01:00 EDT, Route to Pharmacy Electronically, [facility]/pharmacy #[id number], Partial fill upon patient request if the prescript... Start Date: 02/08/21 Status: Ordered darunavir 800 mg oral tablet 1 tablet = 800 mg, By Mouth, Daily, with food, please get labs before refills, # 90 tablet, 3 Refills, Maintenance, 11/28/21 12:11:00 EDT, Tablet, [facility], Partial fill upon patient request if the prescription is for a schedule II... Start Date: 11/28/21 Status: Ordered diclofenac 1% topical gel 1 application, Topically, 4 times a day, # 100 Gm, 11 Refills, Maintenance, 12/06/21 19:06:00 EDT, Gel, [facility]/pharmacy #[id number], Partial fill upon patient request if the prescription is for a schedule II opioid drug., 167.6, cm, 12/06/21 18:07:00 EDT, Heig... Start Date: 12/06/21 Status: Ordered duloxetine 30 mg oral enteric coated capsule 1 capsule = 30 mg, By Mouth, Daily, start with duloxetine 30mg daily x 2 weeks then duloxetine 60mgdaily, # 14 capsule, 0 Refills, Maintenance, 12/06/21 19:06:00 EDT, [facility]/pharmacy #[id number], Partial fill upon patient request if [...] 12/06/21 19:06:00 EDT, Route to Pharmacy Electronically, [facility]/pharmacy #[id number], Partial fill upon patient request if the prescription is for a schedule I... Start Date: 12/06/21 Status: Ordered Genvoya oral tablet 1 tablet, By Mouth, Daily, with food, please get labs before refills, # 90 tablet, 3 Refills, Maintenance, 11/28/21 12:10:00 EDT, Tablet, [facility], Partial fill upon patient request if the prescription is for a schedule II opioid . Start Date: 11/28/21 Status: Ordered hydrochlorothiazide-lisinopril 25 mg-20 mg oral tablet 1 tablet, By Mouth, Daily, please get labs before refills, # 30 tablet, 11 Refills, Maintenance, 01/28/22 14:55:00 EDT, Tablet, [facility], d/c lisinopril 40 mg - change to combo med, 1 tablet By Mouth Daily,Instr:please get labs befo... Start Date: 01/28/22 Status: Ordered metroNIDAZOLE 0.75% topical gel 1 applicator, Vaginally, Daily, # 70 Gm, 0 Refills, Maintenance, 11/20/21 14:08:00 EDT, [facility], Partial fill upon patient request if the prescription is for a schedule II opioid drug., 1 applicator Vaginally Daily,x5 days, 167.6,... Start Date: 11/20/21 Stop Date: 11/25/21 Status: Ordered MiraLax oral powder for reconstitution = 17 Gm, By Mouth, Daily, PRN Constipation, dissolve in water before taking, # 527 Gm, 11 Refills, Maintenance, 02/08/21 20:01:00 EDT, REC Powder, [facility]/pharmacy #[id number], Partial fill upon patient request if the prescription is for a schedule II opioid . 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-[facility] [phone] Confirmed Active Mild recurrent major depression Confirmed Active Urinary incontinence Confirmed Active 1EGD 07/2010 - likely apthous ulcers with very morbid 2 weeks of weight loss and requiring IV fluids Social History Social History Type Response Smoking Status Never smoker; Tobacc o user in household: No entered on: 01/26/15 Sex Patient Care team information Personnel Name: Cornelius REDDY, Shala Kuo Address: Address: [address] [place] [address], C-Level [facility] [place], [place] [address]
--- OUTSIDE RECORDS SUMMARY | 2023-11-18 06:42 | XMS_ITS | Continuity of Care Document ---
Author Organization [facility] Address [address] [place] [address]- Care Team Providers Care Trimmer Press Clippings Name Role Phone Shala Shields MD Primary Care Physician [facility] Date[facility]): 01/30/21 - 03/01/21 [facility] [address] [place] [address]- Allergies, Adverse Reactions, Alerts Substance Reaction Severity [...] GIVEN DATED: 11/18/11 8Admin Note: VIS GIVEN GERMAN 2011-04 9Admin Note: vis given vis date 12/26/2009 10Admin Note: Prevnar 11Admin Note: VIS GIVEN VIS DATE 03/26 Medications Bactrim DS 800 mg-160 mg oral tablet 1 tablet, By Mouth, Daily, # 30 tablet, 5 Refills, Maintenance, 01/25/21 10:04:00 EDT, Tablet, [facility], Partial fill upon patient [...] mL, 11 Refills, Maintenance, 02/02/21 17:36:00 EDT, [facility], replaced tablets by suspension, 167.6, cm, 02/02/21 13:00:00 EDT, Height, 69.3, kg, 02/02/21 13:00... Start Date: 02/02/21 Stop Date: 01/04/22 Status: Ordered Colace sodium 100 mg oral capsule 100 mg, 1, capsule, By Mouth, 2 times a day, PRN, # 60 capsule, Refills 11, Tot. Refills 11, Maintenance, for constipation, 02/08/21 20:01:00 EDT, Route to Pharmacy Electronically, [facility]/pharmacy #[id number], Partial fill upon patient request if the prescript... Start Date: 02/08/21 Status: Ordered darunavir 800 mg oral tablet 1 tablet = 800 mg, By Mouth, Daily, # 30 tablet, 5 Refills, Maintenance, 01/25/21 10:06:00 EDT, Tablet, [facility], Partial fill upon patient request if the prescription is for a schedule II opioid drug., 167.6, cm, 01/23/21 18:14:00... Start Date: 01/25/21 Status: Ordered ferrous sulfate 325 mg oral enteric coated tablet 325 mg, 1, tablet, By Mouth, Daily, # 30 tablet, Refills 1, Tot. Refills 1, Maintenance, 01/06/21 18:35:00 EDT, Route to Pharmacy Electronically, [facility], Partial fill upon patient request if the prescription is for a schedule II o... Start Date: 01/06/21 Status: Ordered Genvoya oral tablet 1 tablet, By Mouth, Daily, with food, # 30 tablet, 5 Refills, Maintenance, 01/25/21 9:51:00 EDT, Tablet, [facility], Partial fill upon patient request if the prescription is for a schedule II opioid drug., 1 tablet By Mouth Daily,Inst... Start Date: 01/25/21 Status: Ordered lisinopril 20 mg oral tablet 20 mg, 1, tablet, By Mouth, Daily, # 30 tablet, Refills 4, Tot. Refills 4, Maintenance, 02/08/21 19:30:00 EDT, Route to Pharmacy Electronically, [facility]/pharmacy #[id number], increase dose, 167.6, cm, 02/08/2118:40:00 EDT, Height, 69.3, kg, 02/02/21 13:00:00 E... Start Date: 02/08/21 Status: Ordered MiraLax oral powder for reconstitution = 17 Gm, By Mouth, Daily, PRN Constipation, dissolve in water before taking, # 527 Gm, 11 Refills, Maintenance, 02/08/21 20:01:00 EDT, REC Powder, [facility]/pharmacy #[id number], Partial fill upon patient request if the prescription is for a schedule II opioid dr... Start Date: 02/08/21 Status: Ordered mirtazapine 15 mg oral tablet 1 tablet = 15 mg, By Mouth, Daily at bedtime, # 30 tablet, 4 Refills, Maintenance, 02/19/21 16:53:00 EDT, Tablet, [facility], increase dose, 167.6, cm, 02/19/21 16:01:00 EDT, Height,69.3, kg, 02/02/21 13:00:00 EDT, Dry Weight Start Date: 02/19/21 Stop Date: 07/19/21 Status: Ordered [facility] Rx Refills 0, Maintenance, [...] Route to Pharmacy Electronically, [facility]/pharmacy #[id number], 167.6, cm, 02/02/21 13:00:00 EDT, Height, [...] 10:56:00 EDT, REC Powder, [facility]/pharmacy #[id number], Partial fill upon patient request... Start Date: 12/19/20 Stop Date: 12/16/21 Status: Ordered Tylenol 325 mg oral tablet 650 mg, 2, tablet, By Mouth, Every 4 hours, PRN, # 24 tablet, Refills 1, Tot. Refills 1, Maintenance, for fever, 02/02/21 14:41:00 EDT, Route to Pharmacy Electronically, [facility]/pharmacy #[id number], Partial fill upon patient request if the [...]
--- OUTSIDE RECORDS SUMMARY | 2023-11-18 06:42 | XMS_ITS | Continuity of Care Document ---
Author Organization [facility] Address [address] [place] [address]- Care Team Providers Care Neurology Hospitalist Name Role Phone Cornelius REDDY, Shala Kuo Primary Care Physician [facility]counter [facility] Date[facility]s): 08/22/21 - 10/31/[address] [address]- Attending Physician: Not on Staff, Attending MD [...] GIVEN DATED: 11/18/11 8Admin Note: VIS GIVEN MONGOLIAN 2011-04 9Admin Note: vis given vis date 12/26/2009 10Admin Note: Prevnar 11Admin Note: VIS GIVEN VIS DATE 03/26 Medications Bactrim DS 800 mg-160 mg oral tablet 1 tablet, By Mouth, Daily, # 30 tablet, 5 Refills, Maintenance, 01/25/21 10:04:00 EDT, Tablet, [facility], Partial fill upon patient [...] mL, 11 Refills, Maintenance, 02/02/21 17:36:00 EDT, [facility], replaced tablets by suspension, 167.6, cm, 02/02/21 13:00:00 EDT, Height, 69.3, kg, 02/02/21 13:00... Start Date: 02/02/21 Stop Date: 01/04/22 Status: Ordered Colace sodium 100 mg oral capsule 100 mg, 1, capsule, By Mouth, 2 times a day, PRN, # 60 capsule, Refills 11, Tot. Refills 11, Maintenance, for constipation, 02/08/21 20:01:00 EDT, Route to Pharmacy Electronically, [facility]/pharmacy #[id number], Partial fill upon patient request if the prescript... Start Date: 02/08/21 Status: Ordered darunavir 800 mg oral tablet 1 tablet = 800 mg, By Mouth, Daily, with food, please get labs before refills, # 30 tablet, 0 Refills, Maintenance, 10/25/21 9:38:00 EDT, Tablet, [facility], Partial fill upon patient request if the prescription is for a schedule II o... Start Date: 10/25/21 Status: Ordered ferrous sulfate 325 mg oral [...] food, please get labs before refills, # 30 tablet, 0 Refills, Maintenance, 10/25/21 9:38:00 EDT, Tablet, [facility], Partial fill upon patient requestif the prescription is for a schedule II opioid sudhir... Start Date: 10/25/21 Status: Ordered hydrochlorothiazide-lisinopril 25 mg-20 mg oral tablet 1 tablet, By Mouth, Daily, please get labs before refills, # 30 tablet, 0 Refills, Maintenance, 10/25/21 9:38:00 EDT, Tablet, [facility], d/c lisinopril 40 mg - change to combo med, 1 tablet By Mouth Daily,Instr:please get labs before... Start Date: 10/25/21 Status: Ordered MiraLax oral powder for reconstitution = 17 Gm, By Mouth, Daily, PRN Constipation, dissolve in water before taking, # 527 Gm, 11 Refills, Maintenance, 02/08/21 20:01:00 EDT, REC Powder, [facility]/pharmacy #[id number], Partial fill upon patient request if the prescription is for a schedule II opioid dr... Start Date: 02/08/21 Status: Ordered mirtazapine 15 mg oral tablet 1 tablet = 15 mg, By Mouth, Daily at bedtime, please get labs before refills, # 30 tablet, 4 Refills, Maintenance, 10/25/21 9:38:00 EDT, Tablet, [facility], increase dose, 167.6, cm,02/19/21 16:01:00 EDT, Height, 69.3, kg, 02/02/21 1... Start Date: 10/25/21 Stop Date: 03/24/22 Status: Ordered Misc Rx Refills 0, Maintenance, [...] 10:56:00 EDT, 12/19/20 10:56:00 EDT, REC Powder, [facility]/pharmacy #[id number], Partial fill upon patient request... Start Date: 12/19/20 Stop Date: 12/16/21 Status: Ordered Thera oral tablet 1 tablet, By Mouth, Daily, # 30 tablet, 11 Refills, Maintenance, 03/09/21 16:13:00 EDT, Tablet, [facility], Partial fill upon patient request if the prescription is for a schedule IIopioid drug., 1 tablet By Mouth Daily, 167.6, cm, 1... Start Date: 03/09/21 Status: Ordered Tylenol 325 mg oral tablet 650 mg, 2, tablet, By Mouth, Every 4 hours, PRN, # 24 tablet, Refills 1, Tot. Refills 1, Maintenance, for fever, 02/02/21 14:41:00 EDT, Route to Pharmacy Electronically, [facility]/pharmacy #[id number], Partial fill upon patient request if the [...]
--- OUTSIDE RECORDS SUMMARY | 2023-11-18 06:42 | XMS_ITS | Continuity of Care Document ---
Author Organization [facility] Address [address] [place] [address]- Care Team Providers Care Supervisor Sanding Name Role Phone Maisha Lin DO Primary Care Physician Encounter [facility] Date(s): 04/19/20 - 04/26/20 [facility] [address] [place] [address]- Encounter Diagnosis Pedal edema(Discharge Diagnosis) - 04/19/20 Attending Physician: Jose A Fernandez MD Referring Physician: Maisha Lin DO Allergies, Adverse Reactions, [...] 10/12/20 9:47:00 EDT, 03/16/20 9:47:00 EDT, Tablet, [facility], 1 tablet By Mouth [...] 03/16/20 Stop Date: 09/12/20 Status: Ordered ergocalciferol 09172 iu oral capsule 50,000 International_Units, 1, capsule, By Mouth, Every week, # 5 capsule, Refills 1, Tot. Refills 1, Maintenance, 03/16/20 9:45:00 EDT, Route to Pharmacy Electronically, [facility],168, cm, 03/16/20 8:08:00 EDT, Height, 71.6, kg, 09... Start Date: 03/16/20 Stop Date: 05/15/20 Status: Ordered ferrous sulfate 325 mg oral enteric coated tablet 325 mg, 1, tablet, By Mouth, Daily, # 30 tablet, Refills 5, Tot. Refills 5, Maintenance, 04/24/20 11:06:00 EST, [id number], Partial fill upon patient requestif the prescription [...] Refills, Soft Stop, 03/16/20 8:57:00 EDT, Suspension, [facility] 0.5 mL Intramuscular Once, 168, cm, 03/16/20 8:08:00 EDT, Height, 71.6, kg, 02/11/20 4:57:00 EDT, Dry Weight Start Date: 03/16/20 Status: Ordered lisinopril 20 mg oral tablet 20 mg, 1, tablet, By Mouth, Daily, # 30 tablet, Refills 5, Tot. Refills 5, Maintenance, 03/16/20 9:46:00 EDT, Route to Pharmacy Electronically, [facility], Please buble pack, 168, cm, 03/16/20 8:08:00 EDT, Height, 71.6, kg, 02/11/20 4... Start Date: 03/16/20 Stop Date: 09/12/20 Status: Ordered Problem List Condition Effective Dates Status Health Status Inform ant Anemia(Confirmed) Active Cervical dysplasia(Confirmed) Active Depression(Confirmed) Active Esophageal ulcer(Confirmed) 1 Active Abnormal uterine bleeding(Confirmed) Active HSV(Confirmed) Active Hypertension(Confirmed) Active Simple obesity(Confirmed) Active Urinary incontinence(Confirmed) Active 1EGD 07/2010 - likely apthous ulcers with very morbid 2 weeks of weight loss and requiring IV fluids Diagnosis Diagnosis Type Effective Dates Health Status Clini shae Service Informant Pedal edema Discharge Diagnosis 04/19/20 Vital Signs Most recent to oldest [Reference Range]: 1 Height 168 cm (04/19/20 3:17 PM) Oxygen Saturation [94-100 %] 100 % (04/19/20 3:17 PM) Pulse Rate [55-90 bpm] 95 bpm *H* (04/19/20 3:17 PM) Blood Pressure [90-138/55-84 mm Hg] 141/ 90mm Hg *H* (04/19/20 3:17 PM) Respiratory Rate [16-30 br/min] 20 br/mi n (04/19/20 3:17 PM) Temperature [96.8-100.4 DegF] 97.1 DegF (04/19/20 3:17 PM) Mode of Delivery (Oxygen) Room air (04/19/20 3:17 PM) Blood pressure sites Arm, left (04/19/20 3:17 PM) Temperature Route Temporal (04/19/20 3:17 PM) Social History Social History Type Response Smoking Status Never smoker; Tobacc o user in household: No entered on: 01/26/15 Sex
--- OUTSIDE RECORDS SUMMARY | 2023-11-18 06:42 | XMS_ITS | Continuity of Care Document ---
Author Organization [facility] Address [address] [place] [address]- Care Team Providers Care Parts Runner Name Role Phone Shala Shields MD Primary Care Physician [facility] Date[facility]s): 08/09/21 - 09/08/21 [facility] [address], [place] [address] Attending Physician: AdmJairo he Admitting [...] GIVEN DATED: 11/18/11 8Admin Note: VIS GIVEN BOTSWANAN 2011-04 9Admin Note: vis given vis date 12/26/2009 10Admin Note: Prevnar 11Admin Note: VIS GIVEN VIS DATE 03/26 Medications Bactrim DS 800 mg-160 mg oral tablet 1 tablet, By Mouth, Daily, # 30 tablet, 5 Refills, Maintenance, 01/25/21 10:04:00 EDT, Tablet, [facility], Partial [...] mL, 11 Refills, Maintenance, 02/02/21 17:36:00 EDT, [facility], replaced tablets by suspension, 167.6, cm, 02/02/21 13:00:00 EDT, Height, 69.3, kg, 02/02/21 13:00... Start Date: 02/02/21 Stop Date: 01/04/22 Status: Ordered Colace sodium 100 mg oral capsule 100 mg, 1, capsule, By Mouth, 2 times a day, PRN, # 60 capsule, Refills 11, Tot. Refills 11, Maintenance, for constipation, 02/08/21 20:01:00 EDT, Route to Pharmacy Electronically, [facility]/pharmacy #[id number], Partial fill upon patient request if the prescript... Start Date: 02/08/21 Status: Ordered darunavir 800 mg oral tablet 1 tablet = 800 mg, By Mouth, Daily, # 30 tablet, 5 Refills, Maintenance, 01/25/21 10:06:00 EDT, Tablet, [facility], Partial fill upon patient request if the prescription is for a schedule II opioid drug., 167.6, cm, 01/23/21 18:14:00... Start Date: 01/25/21 Status: Ordered ferrous sulfate 325 mg oral enteric coated tablet 325 mg, 1, tablet, By Mouth, Daily, # 30 tablet, Refills 11, Tot. Refills 11, Maintenance, 03/02/2112:59:00 EDT, Route to Pharmacy Electronically, [facility], Partial fill upon patient request if the prescription is for a schedule II... Start Date: 03/02/21 Status: Ordered Genvoya oral tablet 1 tablet, By Mouth, Daily, with food, # 30 tablet, 5 Refills, Maintenance, 01/25/21 9:51:00 EDT, Tablet, [facility], Partial fill upon patient request if the prescription is for a schedule II opioid drug., 1 tablet By Mouth Daily,Inst... Start Date: 01/25/21 Status: Ordered hydrochlorothiazide-lisinopril 25 mg-20 mg oral tablet 1 tablet, By Mouth, Daily, # 30 tablet, 4 Refills, Maintenance, 06/28/21 16:48:00 EST, Tablet, [facility], d/c lisinopril 40 mg - change to combo med, 1 tablet By Mouth Daily, 167.6,cm, 02/19/21 16:01:00 EDT, Height, 69.3, kg, ... Start Date: 06/28/21 Status: Ordered MiraLax oral powder for reconstitution = 17 Gm, By Mouth, Daily, PRN Constipation, dissolve in water before taking, # 527 Gm, 11 Refills, Maintenance, 02/08/21 20:01:00 EDT, REC Powder, [facility]/pharmacy #[id number], Partial fill upon patient request if the prescription is for a schedule II opioid dr... Start Date: 02/08/21 Status: Ordered mirtazapine 15 mg oral tablet 1 tablet = 15 mg, By Mouth, Daily at bedtime, # 30 tablet, 4 Refills, Maintenance, 02/19/21 16:53:00 EDT, Tablet, [facility], increase dose, 167.6, cm, 02/19/21 16:01:00 EDT, Height,69.3, kg, 02/02/21 13:00:00 EDT, Dry Weight Start Date: 02/19/21 Stop Date: 07/19/21 Status: [facility], Maintenance, Calcium/Mg/ Zinc [...] 10:56:00 EDT, 12/19/20 10:56:00 EDT, REC Powder, [facility]/pharmacy #[id number], Partial fill upon patient request... Start Date: 12/19/20 Stop Date: 12/16/21 Status: Ordered Thera oral tablet 1 tablet, By Mouth, Daily, # 30 tablet, 11 Refills, Maintenance, 03/09/21 16:13:00 EDT, Tablet, [facility], Partial [...] 02/02/21 14:41:00 EDT, Route to Pharmacy Electronically, [facility]/pharmacy #[id number], Partial fill upon patient request if the [...]
--- OUTSIDE RECORDS SUMMARY | 2023-11-18 06:42 | XMS_ITS | Continuity of Care Document ---
Author Organization [facility] Address [address] [place] [address]- Care Team Providers Care Community Aide Name Role Phone Maisha Lin DO Primary Care Physician [facility] Date[facility]s): 05/03/20 - 06/21/[address] [id number] Attending Physician: Not on Staff, Attending [...] GIVEN DATED: 11/18/11 8Admin Note: VIS GIVEN ALBANIAN 2011-12 9Admin Note: vis given vis date 12/26/2009 10Admin Note: Prevnar 11Admin Note: VIS GIVEN VIS DATE 03/26 Medications Bactrim DS 800 mg-160 mg oral tablet 1 tablet, By Mouth, Daily, for 30 days, # 30 tablet, 6 Refills, Acute 10/12/20 9:47:00 EDT, 03/16/20 9:47:00 EDT, Tablet, [facility], 1 tablet By Mouth Daily,x30 days, 168, cm, 03/16/20 8:08:00 EDT, Height, 71.6, kg, 02/11/20 4:57:00... Start Date: 03/16/20 Stop Date: 10/12/20 Status: Ordered darunavir 800 mg oral tablet 1 tablet = 800 mg, By Mouth, Daily, # 30 tablet, 2 Refills, Maintenance, 06/08/20 10:47:00 EST, Tablet, [facility], 168, cm, 04/19/20 15:17:00 EST, Height, 71.6, kg, 02/11/20 4:57:00EDT, Dry Weight Start Date: 06/08/20 Stop Date: 09/06/20 Status: Ordered docusate sodium 100 mg oral capsule 100 mg, 1, capsule, By Mouth, 2 times a day, # 28 capsule, Refills 3, Tot. Refills 3, Maintenance, 03/16/20 9:41:00 EDT, Route to Pharmacy Electronically, [facility], 168, cm, 03/16/20 8:08:00 EDT, Height, 71.6, kg, 02/11/20 4:57:00 E... Start Date: 03/16/20 Stop Date: 05/11/20 Status: Ordered doxepin 25 mg oral capsule 3 capsule = 75 mg, By Mouth, Daily at bedtime, Please fill today, # 90 capsule, 5 Refills, Maintenance, 03/16/20 9:49:00 EDT, Capsule, [facility], 168, cm, 03/16/20 8:08:00 EDT, Height, 71.6, kg, 02/11/20 4:57:00 EDT, Dry Weight Start Date: 03/16/20 Stop Date: 09/12/20 Status: Ordered ferrous sulfate 325 mg oral enteric coated tablet 325 mg, 1, tablet, By Mouth, Daily, # 30 tablet, Refills 5, Tot. Refills 5, Maintenance, 04/24/20 11:06:00 EST, Route to Pharmacy Electronically, [facility]/pharmacy #[id number], Partial fill upon patient requestif the prescription is for a schedule II opioid sudhir... Start Date: 04/24/20 Stop Date: 10/21/20 Status: Ordered Genvoya oral tablet 1 tablet, By Mouth, Daily, with food, # 30 tablet, 2 Refills, Maintenance, 06/08/20 10:47:00 EST, Tablet, [facility], 1 tablet By Mouth Daily,x30 days,Instr:with food, 168, cm, 04/19/20 15:17:00 EST, Height, 71.6, kg, 02/11/20 4:57:00... Start Date: 06/08/20 Stop Date: 09/06/20 Status: Ordered influenza virus vaccine, inactivated adjuvanted preservative-free quadrivalent intramuscular susp 0.5 mL, Intramuscular, Once, # 0.5 mL, 0 Refills, Soft Stop, 03/16/20 8:57:00 EDT, Suspension, [facility] 0.5 mL Intramuscular Once, 168, cm, 03/16/20 8:08:00 EDT, Height, 71.6, kg, 02/11/20 4:57:00 EDT, Dry Weight Start Date: 03/16/20 Status: Ordered lisinopril 20 mg oral tablet 20 mg, 1, tablet, By Mouth, Daily, # 30 tablet, Refills 5, Tot. Refills 5, Maintenance, 06/08/20 10:46:00 EST, Route to Pharmacy Electronically, [facility], Please buble pack, 168, cm, 04/19/20 [...]
--- OUTSIDE RECORDS SUMMARY | 2023-11-18 06:42 | XMS_ITS | Continuity of Care Document ---
Author Organization [facility] Address [address] [place] [address]- Care Team Providers Care Speech Communication Professor Name Role Phone Timmy MERCER, Daphney Heard Primary Care Physician [facility] 08[facility]19 - 09/03/19 [facility] [address] [place] [address]- [facility] Attending Physician: Victor M Espana Allergies, Adverse Reactions, Alerts Substance Reaction Severity [...] GIVEN DATED: 11/18/11 8Admin Note: VIS GIVEN UKRAINIAN 2011-04 9Admin Note: vis given vis date [...] 2 Refills, Maintenance, 05/18/19 11:15:00 EST, Tablet, [facility] Please deliver, 170, cm, 04/21/19 16:03:00 EST, Height Start Date: 05/18/19 Stop Date: 08/16/19 Status: Ordered doxepin 25 mg oral capsule 3 capsule = 75 mg, By Mouth, Daily at bedtime, Please fill today, # 90 capsule, 5 Refills, Maintenance, 05/18/19 11:13:00 EST, Capsule, [facility] 170, cm, 04/21/19 16:03:00 EST, Height Start Date: 05/18/19 Stop Date: 11/14/19 Status: Ordered ferrous gluconate 324 mg (37.5 mg elemental iron) oral tablet 1 tablet = 324 mg, By Mouth, 2 times a day, # 60 tablet, 1 Refills, Maintenance, 05/20/19 13:38:00 EST, Tablet, [facility]/pharmacy #[id number], 170, cm, 04/21/19 16:03:00 [...] 2 Refills, Maintenance, 05/18/19 11:15:00 EST, Tablet, [facility], Please deliver, 1 tablet By Mouth Daily,x30 [...] 05/18/19 11:13:00 EST, Route to Pharmacy Electronically, [facility], Please fill today, 170, cm, 04/21/19 16:03:00 [...] 04/21/19 16:44:15 EST, Route to Pharmacy Electronically, [id number], [facility], 170, cm, 04/21/19 16:03:00 EST, Height Start Date: 04/21/19 Status: Ordered Vitamin D 36052 iu oral capsule 50,000 International_Units, 1, capsule, By Mouth, Every week, # 5 capsule, Refills 2, Tot. Refills 2, Maintenance, 05/18/19 11:14:00 EST, Route to Pharmacy Electronically, [facility],170, cm, 04/21/19 16:03:00 EST, Height Start Date: [...]
--- OUTSIDE RECORDS SUMMARY | 2023-11-18 06:42 | XMS_ITS | Continuity of Care Document ---
Author Organization [facility] Address [address] [place] [id number]- Care Team Providers Care Weigh Boss Name Role Phone Shala Shields MD Primary Care Physician [phone] [facility]): [facility]23 - 06/19/23 [facility] [address] [place] [id number] Allergies, Adverse Reactions, Alerts Substance Reaction Severity Status azithromycin 1 Persistent Mild Active rifabutin Rash Persistent Moderate Active amLODIPine 2 Active 1Rash 2Had Lower extremity ankle swelling with 10mg. Immunizations Given and Recorded Vaccine Date Status Refusal Reason SARS-CoV-2 (COVID-19) mRNA-3803 vaccine 04/04/22 G iven influenza virus vaccine, [...] GIVEN DATED: 11/18/11 8Admin Note: VIS GIVEN MALAY 2011-04 9Admin Note: vis given vis date 12/26/2009 10Admin Note: Prevnar 11Admin Note: VIS GIVEN VIS DATE 03/26 Medications acetaminophen 325 mg oral tablet 650 mg, 2, tablet, By Mouth, 3 times a day, PRN, # 540 tablet, Refills 3, Tot. Refills 3, Maintenance, as needed for fever, 02/20/23 13:39:00 EDT, Route to Pharmacy Electronically, [facility], Partial fill upon patient request if the prescri... Start Date: 02/20/23 Status: Ordered Bactrim 400 mg-80 mg oral tablet 1 tablet, By Mouth, Daily, BUBBLE PACK, # 90 tablet, 1 Refills, Maintenance, 02/20/23 13:37:00 EDT,Tablet, [facility], Partial fill upon patient request if [...] mL, 11 Refills, Maintenance, 09/18/22 15:52:00 EDT, [facility], replaced tablets by suspension, 167.6, cm, 07/04/22 16:00:00 EST, Height, 69.3, kg, 02/02/21 13:00... Start Date: 09/18/22 Stop Date: 08/20/23 Status: Ordered Colace sodium 100 mg oral capsule 100 mg, 1, capsule, By Mouth, 2 times a day, PRN, # 60 capsule, Refills 11, Tot. Refills 11, Maintenance, for constipation, 02/20/23 13:39:00 EDT, Route to Pharmacy Electronically, [facility], Partial fill upon patient request [...] capsule, 0 Refills, Maintenance, 02/20/23 13:46:00 EDT, [facility], Partial fill upon patient request if the prescri... Start Date: 02/20/23 Stop Date: 03/06/23 Status: Ordered duloxetine 60 mg oral enteric coated capsule 1 capsule = 60 mg, By Mouth, Daily, start with duloxetine 30mg daily x 2 weeks then duloxetine 60mgdaily; BUBBLE PACK, # 30 capsule, 4 Refills, Maintenance, 02/20/23 13:46:00 EDT, EC Capsule, [facility], Partial fill upon patient request if... Start Date: 02/20/23 Status: Ordered ferrous sulfate 325 mg oral enteric coated tablet 325 mg, 1, tablet, By Mouth, Every other day, BUBBLE PACK, # 45 tablet, Refills 3, Tot. Refills 3, Maintenance, 02/20/23 13:37:00 EDT, Route to Pharmacy Electronically, [facility], Partial fill upon patient request if the prescription is for... Start Date: 02/20/23 Status: Ordered Genvoya oral tablet 1 tablet, By Mouth, Daily, with food, please get labs before refills; BUBBLE PACK, # 90 tablet, 1 Refills, Maintenance, 04/25/23 11:55:00 EST, Tablet, [facility], Partial fill upon patient request if the prescription is for a schedule... Start Date: 04/25/23 Status: Ordered hydrochlorothiazide-olmesartan 25 mg-40 mg oral tablet 1 tablet, By Mouth, Daily, BUBBLE PACK, # 90 tablet, 3 Refills, Maintenance, 02/20/23 13:37:00 EDT,Tablet, [facility], d/c HCTZ/lisinopril, 1 tablet By Mouth Daily,Instr:BUBBLE ELANA, 167.6, cm, 12/23/22 8:35:00 EDT, Height Start Date: 02/20/23 Status: Ordered Lidoderm 5% film 2 patch, Topically, Daily, remove patches after 12 hours; 2 patches to pain areas; can cut patches in half; do not excede 2 patches., # 60 patch, 4 Refills, Maintenance, 03/06/23 15:42:00 EDT, [facility]/pharmacy #[id number], Partial fill upon patient request if t... Start Date: 03/06/23 Stop Date: 08/03/23 Status: Ordered MetroGel 1% topical gel 1 application, Topically, Daily, PRN facial rash, # 60 Gm, 11 Refills, Maintenance, 12/23/22 8:40:00 EDT, Gel, [facility], Partial fill upon patient request if the prescription is for a schedule II opioid drug., 1 application Topicall... Start Date: 12/23/22 Status: Ordered MiraLax oral powder for reconstitution = 17 Gm, By Mouth, Daily, PRN Constipation, dissolve in water before taking, # 527 Gm, 11 Refills, Maintenance, 02/20/23 13:39:00 EDT, REC Powder, [facility], Partial fill upon patient request [...] Refills, Soft Stop, 12/23/22 8:46:00 EDT, Powder, [facility], Partial fill upon patient request if the prescription is for a schedule II opioid drug., 0.5 mL Int... Start Date: 12/23/22 Status: Ordered Thera oral tablet 1 tablet, By Mouth, Daily, BUBBLE PACK, # 90 tablet, 3 Refills, Maintenance, 02/20/23 13:37:00 EDT,Tablet, [facility], Partial fill upon patient request [...] pubis OA, left Confirmed Active *Catalina Diaz Windows Consultant-[facility] [phone] Confirmed Active Mild recurrent major depression Confirmed Active Rosacea Confirmed Active Urinary incontinence Confirmed Active 1EGD 07/2010 - likely apthous ulcers with very morbid 2 weeks of weight loss and requiring IV fluids Social History Social History Type Response Smoking Status Never smoker; Tobacc o user in household: No entered on: 01/26/15 Sex Patient Care team information Care Team Personnel Name: Jaky Nicoel RN Position: S RN Member Role: Primary Care Nurse Name: Rhea Brooks Position: S RN Member Role: Primary Care Nurse Name: Shala Shields MD Position: [facility] Physician - Primary Care Member Role: PCP Address: Address: [address] [place] [address] [place] [address]- Name: Kassi Wang RN Position: S RN Member Role: Primary Care Nurse Name: Isabell David RN Position: [facility] SN RN Member Role: Primary Care Nurse Care Team Related Persons Name: OSHEA, REYES Address: home [address] [place] [id number] Name: SHANIKA ZAVALA Address: home [address] [place] [address]
--- OUTSIDE RECORDS SUMMARY | 2023-11-18 06:42 | XMS_ITS | Continuity of Care Document ---
Author Organization [facility] Address [address] [place] [address]- Care Team Providers Care Auto Tune Up Mechanic Name Role Phone Cornelius REDDY, Shala Kuo Primary Care Physician [facility] 07[facility]23 - 08/16/23 [facility] [address] [place], [place] [phone] Allergies, Adverse Reactions, Alerts Substance Reaction Severity [...] GIVEN DATED: 11/18/11 8Admin Note: VIS GIVEN YORUBA 2011-04 9Admin Note: vis given vis date 12/26/2009 10Admin Note: Prevnar 11Admin Note: VIS GIVEN VIS DATE 03/26 Medications acetaminophen 325 mg oral tablet 650 mg, 2, tablet, By Mouth, 3 times a day, PRN, # 540 tablet, Refills 3, Tot. Refills 3, Maintenance, as needed for fever, 02/20/23 13:39:00 EDT, Route to Pharmacy Electronically, [facility], Partial fill upon patient request if the prescri... Start Date: 02/20/23 Status: Ordered Bactrim 400 mg-80 mg oral tablet 1 tablet, By Mouth, Daily, BUBBLE PACK, # 90 tablet, 1 Refills, Maintenance, 02/20/23 13:37:00 EDT,Tablet, [facility], Partial fill upon patient request if [...] 02/20/23 13:39:00 EDT, Route to Pharmacy Electronically, [facility], Partial fill upon patient request if the prescri... Start Date: 02/20/23 Status: Ordered darunavir 800 mg oral tablet 1 tablet = 800 mg, By Mouth, Daily, with food, please get labs before refills; BUBBLE PACK, # 90 tablet, 1 Refills, Maintenance, 04/25/23 11:55:00 EST, Tablet, [facility], Partial fill upon patient request if the prescription is for a... Start Date: 04/25/23 Status: Ordered diclofenac 1% topical gel 1 application, Topically, 4 times a day, # 100 Gm, 11 Refills, Maintenance, 09/18/22 15:52:00 EDT, Gel, [facility], Partial fill upon patient [...] Refills, Maintenance, 07/03/23 19:03:00 EST, EC Capsule, [facility], Partial fill upon patient request if the... Start Date: 07/03/23 Status: Ordered ferrous sulfate 325 mg oral enteric coated tablet 325 mg, 1, tablet, By Mouth, Every other day, BUBBLE PACK, # 45 tablet, Refills 3, Tot. Refills 3, Maintenance, 02/20/23 13:37:00 EDT, Route to Pharmacy Electronically, [facility], Partial fill upon patient request if the prescription is for... Start Date: 02/20/23 Status: Ordered gabapentin 100 mg oral capsule 100 mg, 1, capsule, By Mouth, Daily at bedtime, PRN, # 30 capsule, Refills 4, Tot. Refills 4, Maintenance, Anxiety, 08/05/23 10:19:00 EDT, Route to Pharmacy Electronically, [facility], Partial fill upon patient request if the prescrip... Start Date: 08/05/23 Stop Date: 08/12/23 Status: Ordered Genvoya oral tablet 1 tablet, By Mouth, Daily, with food, please get labs before refills; BUBBLE PACK, # 90 tablet, 1 Refills, Maintenance, 04/25/23 11:55:00 EST, Tablet, [facility], Partial fill upon patient request if the prescription is for a schedule... Start Date: 04/25/23 Status: Ordered hydrochlorothiazide-olmesartan 25 mg-40 mg oral tablet 0.5 tablet, By Mouth, Daily, # 15 tablet, 4 Refills, Maintenance, 08/07/23 15:23:00 EDT, Tablet, [facility]/pharmacy #[id number], decrease dose, 0.5 tablet By Mouth Daily, 167.6, cm, 08/05/23 9:50:00 EDT, Height Start Date: 08/07/23 Status: Ordered Lidoderm 5% film 2 patch, Topically, Daily, remove patches after 12 hours; 2 patches to pain areas; can cut patches in half; do not excede 2 patches., # 60 patch, 4 Refills, Maintenance, 03/06/23 15:42:00 EDT, [facility]/pharmacy #[id number], Partial fill upon patient request if t... Start Date: 03/06/23 Stop Date: 08/03/23 Status: Ordered [facility] Rx Refills 0, Maintenance, Calcium/Mg/ Zinc 1 tablet daily, 01/23/21 17:47:00 EDT, Supply Start Date: 01/23/21 Status: Ordered naltrexone 50 mg oral tablet 1 tablet = 50 mg, By Mouth, Daily, # 30 tablet, 4 Refills, Maintenance, 07/28/23 16:46:00 EDT, Tablet, [facility]/pharmacy #[id number], Partial fill upon patient request if [...] Refills, Maintenance, 07/03/23 18:52:00 EST, REC Powder, [facility], Partial fill upon patient request if the prescription is for a schedule II opioid drug., 17 Gm... Start Date: 07/03/23 Stop Date: 10/01/23 Status: Ordered Thera oral tablet 1 tablet, By Mouth, Daily, BUBBLE PACK, # 90 tablet, 3 Refills, Maintenance, 02/20/23 13:37:00 EDT,Tablet, [facility], Partial fill upon patient request if the prescription is for a schedule II opioid drug., 1 tablet By Mouth Daily,Instr:BU... Start Date: 02/20/23 Status: Ordered Vitamin D3 1000 intl units oral capsule 1 capsule = 25 mcg, By Mouth, Daily, # 90 capsule, 3 Refills, Maintenance, 07/03/23 19:05:00 EST, Capsule, [facility], Partial fill upon patient [...] pubis OA, left Confirmed Active *Catalina Diaz Trimmer Sorter-[facility] [phone] Confirmed Active Mild recurrent major depression Confirmed [...] Care Member Role: PCP Address: Address: [address] [place] [address] Adult Medicine [address] Name: Kassi Wang RN Position: [facility] RN Member Role: Primary Care Nurse Care Team Related Persons Name: REYES OSHEA Address: home [address] [address] Name: SHANIKA ZAVALA Address: home [address] [place] [address]
--- OUTSIDE RECORDS SUMMARY | 2023-11-18 06:42 | XMS_ITS | Continuity of Care Document ---
Author Organization [facility] Address [address] [place] [address]- Care Team Providers Care Pattern Attendant Name Role Phone Cornelius REDDY, Shala Kuo Primary Care Physician [phone] [facility] 07[facility]23 - 08/28/23 [facility] [address] [place], [place] [phone] Allergies, Adverse Reactions, Alerts Substance Reaction Severity [...] GIVEN DATED: 11/18/11 8Admin Note: VIS GIVEN URUGUAYAN 2011-04 9Admin Note: vis given vis date 12/26/2009 10Admin Note: Prevnar 11Admin Note: VIS GIVEN VIS DATE 03/26 Medications acetaminophen 325 mg oral tablet 650 mg, 2, tablet, By Mouth, 3 times a day, PRN, # 540 tablet, Refills 3, Tot. Refills 3, Maintenance, as needed for fever, 02/20/23 13:39:00 EDT, Route to Pharmacy Electronically, [facility], Partial fill upon patient request if the prescri... Start Date: 02/20/23 Status: Ordered Bactrim 400 mg-80 mg oral tablet 1 tablet, By Mouth, Daily, BUBBLE PACK, # 90 tablet, 1 Refills, Maintenance, 02/20/23 13:37:00 EDT,Tablet, [facility], Partial fill upon patient request if [...] 02/20/23 13:39:00 EDT, Route to Pharmacy Electronically, [facility], Partial fill upon patient request if the prescri... Start Date: 02/20/23 Status: Ordered darunavir 800 mg oral tablet 1 tablet = 800 mg, By Mouth, Daily, with food, please get labs before refills; BUBBLE PACK, # 90 tablet, 1 Refills, Maintenance, 04/25/23 11:55:00 EST, Tablet, [facility], Partial fill upon patient request if the prescription is for a... Start Date: 04/25/23 Status: Ordered diclofenac 1% topical gel 1 application, Topically, 4 times a day, # 100 Gm, 11 Refills, Maintenance, 09/18/22 15:52:00 EDT, Gel, [facility], Partial fill upon patient request if the prescription is for a schedule II opioid drug., 167.6, cm, 07/04/22 16:00:00... Start Date: 09/18/22 Status: Ordered duloxetine 60 mg oral enteric coated capsule 1 capsule = 60 mg, By Mouth, Daily, start with duloxetine 30mg daily x 2 weeks then duloxetine 60mgdaily;, # 30 capsule, 4 Refills, Maintenance, 07/03/23 19:03:00 EST, EC Capsule, [facility], Partial fill upon patient request if the... Start Date: 07/03/23 Status: Ordered ferrous sulfate 325 mg oral enteric coated tablet 325 mg, 1, tablet, By Mouth, Daily, # 90 tablet, Refills 3, Tot. Refills 3, Maintenance, 08/26/23 9:38:00 EDT, Route to Pharmacy Electronically, [facility], Partial fill upon patientrequest if the prescription is for a schedule II op... Start Date: 08/26/23 Status: Ordered gabapentin 100 mg oral capsule 100 mg, 1, capsule, By Mouth, Daily at bedtime, PRN, # 30 capsule, Refills 4, Tot. Refills 4, Maintenance, Anxiety, 08/05/23 10:19:00 EDT, Route to Pharmacy Electronically, [facility], Partial fill upon patient request if the prescrip... Start Date: 08/05/23 Stop Date: 08/12/23 Status: Ordered Genvoya oral tablet 1 tablet, By Mouth, Daily, with food, please get labs before refills; BUBBLE PACK, # 90 tablet, 1 Refills, Maintenance, 04/25/23 11:55:00 EST, Tablet, [facility], Partial fill upon patient request if the prescription is for a schedule... Start Date: 04/25/23 Status: Ordered hydrochlorothiazide-olmesartan 25 mg-40 mg oral tablet 0.5 tablet, By Mouth, Daily, # 15 tablet, 4 Refills, Maintenance, 08/07/23 15:23:00 EDT, Tablet, [facility]/pharmacy #[id number], decrease dose, 0.5 tablet By Mouth Daily, 167.6, cm, 08/05/23 9:50:00 EDT, Height Start Date: 08/07/23 Status: Ordered Lidoderm 5% film 2 patch, Topically, Daily, remove patches after 12 hours; 2 patches to pain areas; can cut patches in half; do not excede 2 patches., # 60 patch, 4 Refills, Maintenance, 03/06/23 15:42:00 EDT, [facility]/pharmacy #[id number], Partial fill upon patient request if t... Start Date: 03/06/23 Stop Date: 08/03/23 Status: Ordered meloxicam 7.5 mg oral tablet 1 tablet = 7.5 mg, By Mouth, Daily, [place]ke with acetaminophen, # 14 tablet, 0 Refills, Maintenance, 08/25/23 16:16:00 EDT, Tablet, [facility], Partial fill upon patient [...] 4 Refills, Maintenance, 07/28/23 16:46:00 EDT, Tablet, [facility]/pharmacy #[id number], Partial fill upon patient request [...] Refills, Maintenance, 07/03/23 18:52:00 EST, REC Powder, [facility], Partial fill upon patient request if the prescription is for a schedule II opioid drug., 17 Gm... Start Date: 07/03/23 Stop Date: 10/01/23 Status: Ordered Thera oral tablet 1 tablet, By Mouth, Daily, # 90 tablet, 3 Refills, Maintenance, 08/26/23 9:38:00 EDT, Tablet, [facility], Partial fill upon patient request if the prescription is for a schedule II opioid drug., 1 tablet By Mouth Daily, 167.6, cm, ... Start Date: 08/26/23 Status: Ordered Vitamin D3 1000 intl units oral capsule 1 capsule = 25 mcg, By Mouth, Daily, # 90 capsule, 3 Refills, Maintenance, 07/03/23 19:05:00 EST, Capsule, [facility], Partial fill upon patient [...] pubis OA, left Confirmed Active *Catalina Diaz Resistance Brazer-[facility] [phone] Confirmed Active Mild recurrent major depression Confirmed Active Rosacea Confirmed Active Urinary incontinence Confirmed Active Social History Social History Type Response Tobacco Use: Rolls weed in l eaf tabacco . Sex Patient Care team information Care Team Personnel Name: Jaky Nicole RN Position: [facility] RN Member Role: Primary Care Nurse Name: Rhea Brooks Position: [facility] RN Member Role: Primary Care Nurse Name: Shala Shields MD Position: [facility] Physician - Primary Care Member Role: PCP Address: Address: [address] [place] [address] Name: Kassi Wang RN Position: [facility] RN Member Role: Primary Care Nurse Name: Isabell David RN Position: [facility]ST[facility] Office Staff Member Role: Primary Care Nurse Care Team Related Persons Name: REYES OSHEA Address: home [address] [address] Name: SHANIKA ZAVALA Address: [address] [place] [address]
--- OUTSIDE RECORDS SUMMARY | 2023-11-18 06:42 | XMS_ITS | Continuity of Care Document ---
Author Organization [facility] y Address [address] [place] [address]- Care Team Providers Care Project Management Instructor Name Role Phone Shala Shields MD Primary Care Physician [facility] 01[facility]23 - 02/05/23 [facility] [address] [place], [place] [address] Allergies, Adverse Reactions, Alerts Substance Reaction Severity [...] 09/18/22 15:52:00 EDT, [facility], Partial fill upon patient request if the... Start Date: 09/18/22 Status: Ordered Bactrim 400 mg-80 mg oral tablet 1 tablet, By Mouth, Daily, for 30 days, # 30 tablet, 2 Refills, Acute 03/12/23 9:28:00 EDT, 12/12/22 9:28:00 EDT, [facility] upon [facility] [...] mL, 11 Refills, Maintenance, 09/18/22 15:52:00 EDT, [facility], replaced tablets by suspension, 167.6, cm, 07/04/22 16:00:00 EST, Height, 69.3, kg, 02/02/21 13:00... Start Date: 09/18/22 Stop Date: 08/20/23 Status: Ordered Colace sodium 100 mg oral capsule 100 mg, 1, capsule, By Mouth, 2 times a day, PRN, # 60 capsule, Refills 11, Tot. Refills 11, Maintenance, for constipation, 09/18/22 15:52:00 EDT, [facility] fill upon patient request if the... Start Date: 09/18/22 Status: Ordered darunavir 800 mg oral tablet 1 tablet = 800 mg, By Mouth, Daily, with food, please get labs before refills, # 90 tablet, 3 Refills, Maintenance, 11/25/22 9:47:00 EDT, Tablet, [facility], Partial fill upon patient request if the prescription is for a schedule II o... Start Date: 11/25/22 Status: Ordered diclofenac 1% topical gel 1 application, Topically, 4 times a day, # 100 Gm, 11 Refills, Maintenance, 09/18/22 15:52:00 EDT, Gel, [facility], Partial fill upon patient request if the prescription is for a schedule II opioid drug., 167.6, cm, 07/04/22 16:00:00... Start Date: 09/18/22 Status: Ordered ferrous sulfate 325 mg oral enteric coated tablet 325 mg, 1, tablet, By Mouth, Every other day, # 45 tablet, Refills 3, Tot. Refills 3, Maintenance, 09/18/22 15:52:00 EDT, Route to Pharmacy Electronically, [facility], Partial fill upon patient request if the prescription is for a hubert... Start Date: 09/18/22 Status: Ordered Genvoya oral tablet 1 tablet, By Mouth, Daily, with food, please get labs before refills, # 90 tablet, 3 Refills, Maintenance, 11/25/22 10:45:00 EDT, Tablet, [facility], Partial fill upon patient request if the prescription is for a schedule II opioid drMichelle Start Date: 11/25/22 Status: Ordered hydrochlorothiazide-olmesartan 25 mg-40 mg oral tablet 1 tablet, By Mouth, Daily, # 90 tablet, 3 Refills, Maintenance, 09/18/22 15:50:00 EDT, Tablet, [facility], d/c HCTZ/lisinopril, 1 tablet By Mouth Daily, 167.6, cm, 07/04/22 16:00:00 EST, Height, 69.3, kg, 02/02/21 13:00:00 EDT, Dry We... Start Date: 09/18/22 Status: Ordered MetroGel 1% topical gel 1 application, Topically, Daily, PRN facial rash, # 60 Gm, 11 Refills, Maintenance, 12/23/22 8:40:00 EDT, Gel, [facility], Partial fill upon patient request if the prescription is for a schedule II opioid drug., 1 application Topicall... Start Date: 12/23/22 Status: Ordered MiraLax oral powder for reconstitution = 17 Gm, By Mouth, Daily, PRN Constipation, dissolve in water before taking, # 527 Gm, 11 Refills, Maintenance, 09/18/22 15:52:00 EDT, REC Powder, [facility], Partial fill upon patient request if the prescription is for a schedule II... Start Date: 09/18/22 Status: Ordered [facility] Rx Refills 0, Maintenance, Calcium/Mg/ Zinc 1 [...] Refills, Soft Stop, 12/23/22 8:46:00 EDT, Powder, [facility], Partial fill upon patient request if the prescription is for a schedule II opioid drug., 0.5 mL Int... Start Date: 12/23/22 Status: Ordered Thera oral tablet 1 tablet, By Mouth, Daily, # 90 tablet, 3 Refills, Maintenance, 09/18/22 15:52:00 EDT, Tablet, [facility], Partial fill upon [...] pubis OA, left Confirmed Active *Catalina Diaz Bilingual Loan Processor-[facility] [phone] Confirmed Active Mild recurrent major depression Confirmed [...] Team Personnel Name: Jaky Nicole RN Position: [facility] RN Member Role: Primary Care Nurse Name: Rhea Heard Position: [facility] RN Member Role: Primary Care Nurse Name: Shala Shielsd MD Position: [facility] Physician - Primary Care Member Role: PCP Address: Address: [address] [place] [address] [place] [address]- Name: Kassi Wang RN Position: [facility] RN Member Role: Primary Care Nurse Name: Isabell David RN Position: [facility] SN RN Member Role: Primary Care Nurse Name: Tamy Lamb RN Position: S RN Member Role: Primary Care Nurse Care Team Related Persons Name: CHERELLE OSHEAIA Address: home [address] [address] Name: ZAVALA SHANIKA Address: home [address] [place] [address]
--- OUTSIDE RECORDS SUMMARY | 2023-11-18 06:42 | XMS_ITS | Continuity of Care Document ---
Author Organization [facility] Address [address] [place] [address]- Care Team Providers Care State Trooper Name Role Phone Timmy MERCER, Daphney Heard Primary Care Physician [facility]counter [facility] Date(s): 07/06/19 - 07/16/19 [facility] [address] [place] [address]- Attending Physician: Jairo Ochoa Admitting Physician: AdmJairo he Referring Physician: AdmtrJairo Allergies, Adverse Reactions, Alerts [...] GIVEN DATED: 11/18/11 8Admin Note: VIS GIVEN TRINIDADIAN 2011-04 9Admin Note: vis given vis date [...] 2 Refills, Maintenance, 05/18/19 11:15:00 EST, Tablet, [facility] Please deliver, 170, cm, 04/21/19 16:03:00 EST, Height Start Date: 05/18/19 Stop Date: 08/16/19 Status: Ordered doxepin 25 mg oral capsule 3 capsule = 75 mg, By Mouth, Daily at bedtime, Please fill today, # 90 capsule, 5 Refills, Maintenance, 05/18/19 11:13:00 EST, Capsule, [facility] 170, cm, 04/21/19 16:03:00 EST, Height Start Date: 05/18/19 Stop Date: 11/14/19 Status: Ordered ferrous gluconate 324 mg (37.5 mg elemental iron) oral tablet 1 tablet = 324 mg, By Mouth, 2 times a day, # 60 tablet, 1 Refills, Maintenance, 05/20/19 13:38:00 EST, Tablet, [facility]/pharmacy #[id number], 170, cm, 04/21/19 16:03:00 [...] 2 Refills, Maintenance, 05/18/19 11:15:00 EST, Tablet, [facility], Please deliver, 1 tablet By Mouth [...] 05/18/19 11:13:00 EST, Route to Pharmacy Electronically, [facility], Please fill today, 170, cm, 04/21/19 [...] 04/21/19 16:44:15 EST, Route to Pharmacy Electronically, [id number], [facility], 170, cm, 04/21/19 16:03:00 EST, Height Start Date: 04/21/19 Status: Ordered Vitamin D 76868 iu oral capsule 50,000 International_Units, 1, capsule, By Mouth, Every week, # 5 capsule, Refills 2, Tot. Refills 2, Maintenance, 05/18/19 11:14:00 EST, Route to Pharmacy Electronically, [facility],170, cm, 04/21/19 16:03:00 EST, Height Start [...]
--- OUTSIDE RECORDS SUMMARY | 2023-11-18 06:42 | XMS_ITS | Continuity of Care Document ---
Author Organization [facility] Address [address] [place] [id number]- Care Team Providers Care Jewel Staker Name Role Phone Maisha Lin DO Primary Care Physician Encounter [facility] Date(s): 05/22/20 - 06/21/[address] [address] Attending Physician: Admtr, Ar8 Allergies, Adverse Reactions, [...] GIVEN DATED: 11/18/11 8Admin Note: VIS GIVEN ZAMBIAN 2011-04 9Admin Note: vis given vis date 12/26/2009 10Admin Note: Prevnar 11Admin Note: VIS GIVEN VIS DATE 03/26 Medications Bactrim DS 800 mg-160 mg oral tablet 1 tablet, By Mouth, Daily, for 30 days, # 30 tablet, 6 Refills, Acute 10/12/20 9:47:00 EDT, 03/16/20 9:47:00 EDT, Tablet, [facility], 1 tablet By Mouth Daily,x30 days, 168, cm, 03/16/20 8:08:00 EDT, Height, 71.6, kg, 02/11/20 4:57:00... Start Date: 03/16/20 Stop Date: 10/12/20 Status: Ordered darunavir 800 mg oral tablet 1 tablet = 800 mg, By Mouth, Daily, # 30 tablet, 2 Refills, Maintenance, 06/08/20 10:47:00 EST, Tablet, [facility], 168, cm, 04/19/20 15:17:00 EST, Height, 71.6, kg, 02/11/20 4:57:00EDT, Dry Weight Start Date: 06/08/20 Stop Date: 09/06/20 Status: Ordered docusate sodium 100 mg oral capsule 100 mg, 1, capsule, By Mouth, 2 times a day, # 28 capsule, Refills 3, Tot. Refills 3, Maintenance, 03/16/20 9:41:00 EDT, Route to Pharmacy Electronically, [facility], 168, cm, 03/16/20 8:08:00 EDT, Height, 71.6, kg, 02/11/20 4:57:00 E... Start Date: 03/16/20 Stop Date: 05/11/20 Status: Ordered doxepin 25 mg oral capsule 3 capsule = 75 mg, By Mouth, Daily at bedtime, Please fill today, # 90 capsule, 5 Refills, Maintenance, 03/16/20 9:49:00 EDT, Capsule, [facility], 168, cm, 03/16/20 8:08:00 EDT, Height, 71.6, kg, 02/11/20 4:57:00 EDT, Dry Weight Start Date: 03/16/20 Stop Date: 09/12/20 Status: Ordered ferrous sulfate 325 mg oral enteric coated tablet 325 mg, 1, tablet, By Mouth, Daily, # 30 tablet, Refills 5, Tot. Refills 5, Maintenance, 04/24/20 11:06:00 EST, Route to Pharmacy Electronically, [facility]/pharmacy #[id number], Partial fill upon patient requestif the prescription is for a schedule II opioid sudhir... Start Date: 04/24/20 Stop Date: 10/21/20 Status: Ordered Genvoya oral tablet 1 tablet, By Mouth, Daily, with food, # 30 tablet, 2 Refills, Maintenance, 06/08/20 10:47:00 EST, Tablet, [facility], 1 tablet By Mouth Daily,x30 days,Instr:with food, 168, cm, 04/19/20 15:17:00 EST, Height, 71.6, kg, 02/11/20 4:57:00... Start Date: 06/08/20 Stop Date: 09/06/20 Status: Ordered influenza virus vaccine, inactivated adjuvanted preservative-free quadrivalent intramuscular susp 0.5 mL, Intramuscular, Once, # 0.5 mL, 0 Refills, Soft Stop, 03/16/20 8:57:00 EDT, Suspension, [facility] 0.5 mL Intramuscular Once, 168, cm, 03/16/20 8:08:00 EDT, Height, 71.6, kg, 02/11/20 4:57:00 EDT, Dry Weight Start Date: 03/16/20 Status: Ordered lisinopril 20 mg oral tablet 20 mg, 1, tablet, By Mouth, Daily, # 30 tablet, Refills 5, Tot. Refills 5, Maintenance, 06/08/20 10:46:00 EST, Route to Pharmacy Electronically, [facility], Please buble pack, 168, cm, [...]
--- OUTSIDE RECORDS SUMMARY | 2023-11-18 06:42 | XMS_ITS | Continuity of Care Document ---
Author Organization [facility] Address [address] [place] [address]- Care Team Providers Care Boiler Engineer Name Role Phone Maisha Lin DO Primary Care Physician [place] [facility] [place] - 02/12/[address] [address]- [facility] Discharge Disposition: A-D/C Home Attending Physician: Susu Sahu MD Admitting Physician: Sully Wright DO Referring Physician: Not on Staff, Referring MD [...] GIVEN DATED: 11/18/11 8Admin Note: VIS GIVEN CYMRAES 2011-12 9Admin Note: vis given vis date 12/26/2009 10Admin Note: Prevnar 11Admin Note: VIS GIVEN VIS DATE 03/26 Medications albuterol 90 mcg/inh inhalation powder 2 puffs, Inhalation, Every 6 hours, # 1 each, 1 Refills, Maintenance, 11/14/15 11:00:20, 2 puffs Inhalation Every 6 hours,x14 days Start Date: 11/14/15 Stop Date: 12/12/15 Status: Ordered Bactrim DS 800 mg-160 mg oral tablet 1 tablet, By Mouth, Daily, for 30 days, # 30 tablet, 6 Refills, Acute 09/09/20 14:11:00 EDT, 02/12/20 14:11:00 EDT, Tablet, [facility]/pharmacy #1, 1 tablet By Mouth Daily,x30 days, 168, cm, 02/12/20 6:00:00 EDT, Height, 71.6, kg, 02/11/20 4:57:00 EDT, [facility] Start Date: 02/12/20 Stop Date: 09/09/20 Status: Ordered Carafate 1 gm oral tablet 1 Gm, 1, tablet, By Mouth, 4 times a day, # 120 tablet, Refills 0, Tot. Refills 0, Maintenance, 02/12/20 14:06:00 EDT, Route to Pharmacy Electronically, [facility]/pharmacy #1, 168, cm, 02/12/20 6:00:00 EDT, Height, 71.6, kg, 02/11/20 4:57:00 EDT, Dry Weight Start Date: 02/12/20 Status: Ordered docusate sodium 100 mg oral capsule 100 mg, 1, capsule, By Mouth, 2 times a day, # 28 capsule, Refills 0, Tot. Refills 0, Maintenance, 02/12/20 14:06:00 EDT, Route to Pharmacy Electronically, [facility]/pharmacy #1, 168, cm, 02/12/20 6:00:00 EDT, Height, 71.6, kg, 02/11/20 4:57:00 EDT, Dry... Start Date: 02/12/20 Stop Date: 02/26/20 Status: Ordered doxepin 25 mg oral capsule 3 capsule = 75 mg, By Mouth, Daily at bedtime, Please fill today, # 90 capsule, 5 Refills, Maintenance, 05/18/19 11:13:00 EST, Capsule, [facility], 170, cm, 04/21/19 16:03:00 EST, Height Start Date: 05/18/19 Stop Date: 11/14/19 Status: Ordered ferrous gluconate 324 mg (37.5 mg elemental iron) oral tablet 1 tablet = 324 mg, By Mouth, 2 times a day, # 60 tablet, 1 Refills, Maintenance, 02/04/20 10:59:00 EDT, Tablet, [facility]/pharmacy #[id number], 170, cm, 04/21/19 16:03:00 EST, Height Start Date: 02/04/20 Stop Date: 04/04/20 Status: Ordered fluconazole 100 mg oral tablet See Instructions, 2 Tabs PO today then 1 tablet By Mouth Daily x 10 days, # 12 each, 0 Refills, Maintenance, 03/16/19 16:30:48 EDT, Tablet Start Date: 03/16/19 Status: Ordered lidocaine topical 2% solution 5 [...] tablet, Refills 5, Tot. Refills 5, Maintenance, 02/10/20 8:18:00 EDT, Route to Pharmacy Electronically, [facility]/pharmacy #[id number], Please fill today, 170, cm, 02/10/20 8:01:00 EDT, Height Start Date: 02/10/20 Stop Date: 08/08/20 Status: Ordered melatonin 3 mg oral tablet 1 tablet = 3 mg, By Mouth, Daily at bedtime, for 30 days, # 30 tablet, 0 Refills, Acute 03/13/20 14:05:00 EDT, 02/12/20 14:05:00 EDT, Tablet, [facility]/pharmacy #[id number], 168, cm, 02/12/20 6:00:00 EDT, Height, 71.6, kg, 02/11/20 4:57:00 EDT, Dry Weight Start Date: 02/12/20 Stop Date: 03/13/20 Status: Ordered Norvasc 5 mg oral tablet 5 mg, 1, tablet, By Mouth, Daily, # 30 tablet, Refills 0, Tot. Refills 0, Maintenance, 02/12/20 14:04:00 EDT, Route to Pharmacy Electronically, [facility]/pharmacy #[id number], 168, cm, 02/12/20 6:00:00 EDT, Height, 71.6, kg, 02/11/20 4:57:00 EDT, Dry Weight Start Date: 02/12/20 Status: Ordered pantoprazole 40 mg oral delayed release tablet = 40 mg, By Mouth, 2 times a day, # 28 tablet, 0 Refills, Maintenance, 02/12/20 14:07:00 EDT, EC Tablet, 168, cm, 02/12/20 6:00:00 EDT, Height, 71.6, kg, 02/11/20 4:57:00 EDT, Dry Weight Start Date: 02/12/20 Stop Date: 02/26/20 Status: Ordered Senna 8.6 mg oral tablet 8.6 mg, 1, tablet, By Mouth, Daily, for 14 days, # 14 tablet, Refills 0, Tot. Refills 0, Acute, 02/26/20 14:06:00 EDT, 02/12/20 14:06:00 EDT, Route to Pharmacy Electronically, [facility]/pharmacy #1 Tablet, 168, cm, 02/12/20 6:00:00 EDT, Height, 71.6, kg,... Start Date: 02/12/20 Stop Date: 02/26/20 Status: Ordered simethicone 80 mg oral tablet, chewable 80 mg, 1, tablet, Chew, 3 times a day, for 14 days, # 42 tablet, Refills 0, Tot. Refills 0, Acute 02/26/20 14:06:00 EDT, 02/12/20 14:06:00 EDT, Route to Pharmacy Electronically, [facility]/pharmacy #[id number], 168, cm, 02/12/20 6:00:00 EDT, Height, 71.6, kg, 09/2... Start Date: 02/12/20 Stop Date: 02/26/20 Status: Ordered Tylenol 325 mg oral tablet 650 mg, 2, tablet, By Mouth, Every 6 hours, PRN, Refills 0, Maintenance, Pain , Mild, 02/12/20 14:04:00 EDT Start Date: 02/12/20 Status: Ordered valganciclovir 450 mg oral tablet 900 mg, 2, tablet, By Mouth, 2 times a day with meals, # 112 tablet, Refills 0, Tot. Refills 0, Acute 03/11/20 9:00:00 EDT, 02/12/20 14:07:00 EDT, Route to Pharmacy Electronically, [facility]/pharmacy #[id number], 168, cm, 02/12/20 6:00:00 EDT, Height, 71.6, kg, 0... Start Date: 02/12/20 Stop Date: 03/11/20 Status: Ordered Vitamin D 17866 iu oral capsule 50,000 International_Units, 1, capsule, By Mouth, Every week, # 5 capsule, Refills 2, Tot. Refills 2, Maintenance, 02/10/20 8:14:00 EDT, Route to Pharmacy Electronically, [facility]/pharmacy #[id number], 170, cm,02/10/20 8:01:00 EDT, Height Start Date: 02/10/20 Stop Date: 05/10/20 Status: Ordered Problem List Condition Effective Dates Status Health Status Inform ant Anemia(Confirmed) Active Cervical dysplasia(Confirmed) Active Depression(Confirmed) Active Esophageal ulcer(Confirmed) 1 Active Abnormal uterine bleeding(Confirmed) Active HSV(Confirmed) Active Hypertension(Confirmed) Active Simple obesity(Confirmed) Active Urinary incontinence(Confirmed) Active 1EGD 07/2010 - likely apthous ulcers with very morbid 2 weeks of weight loss and requiring IV fluids Results Radiology Reports * Exam Date Time Procedure Performing Provider Status 02/12/20 12:52 PM Chest 2 Views Frontal and Lat Umu Soliz; Sneha (Verified) Notes: (Chest 2 Views Frontal and Lat) Reason For Exam: Atypical pneumonia, HIV CD4 at 77;Cough RESULT: Chest 2 Views Frontal and Lat Chest 2 Views Frontal and Lat REASON: Cough; Atypical pneumonia, HIV CD4 at 77; Clinical Question(s): Pneumonia / Pneumonia COMPARISON: 06/28/2014 FINDINGS: LINES AND TUBES: None. LUNGS AND PLEURA: Clear lungs. Normal pulmonary vascularity. No pleural effusion. No pneumothorax. HEART, MEDIASTINUM AND ROM: Heart is at the upper limits of normal for size. Normal mediastinal and hilar contour. BONES AND SOFT TISSUES: No acute abnormality. IMPRESSION: No evidence of acute abnormality. WSN: [id number] Ordering Physician: Monserrat Hernandez Dictated By: Mic Garcia MD Dictated Date/Time: 02/12/20 12:53 p Reviewed By: Mic Garcia MD Signed By: Mic Garcia MD Signed Date/Time: 02/12/20 12:53 pm Transcribed By: SAMUEL Transcribed Date/Time: 02/12/20 12:53 pm Vital Signs Most recent to oldest [Reference Range]: 1 2 3 Height 168 cm (02/12/20 6:00 AM) 168 cm (02/11/20 8:57 PM) 168 cm (02/11/20 4:03 PM) Weight 71.6 kg (02/11/20 4:03 PM) 71.6 kg (02/10/20 8:56 PM) 71.4 kg (02/10/20 8:06 PM) Oxygen Saturation [94-100 %] 99 % (02/12/20 2:00 PM) 100 % (02/12/20 6:00 AM) 100 % (02/11/20 8:57 PM) Pulse Rate [55-90 bpm] 102 bpm *H* (02/12/20 2:00 PM) 109 bpm *H* (02/12/20 6:00 AM) 111 bpm *H* (02/11/20 8:57 PM) Body Mass Index [18.5-24.99] 25.37 *H* (02/11/20 4:03 PM) 25.37 *H* (02/10/20 8:56 PM) 25.3 *H* (02/10/20 8:06 PM) Blood Pressure [90-138/55-84 mm Hg] 125/85mm Hg (02/12/20 2:00 PM) 141/90mm Hg *H* (02/12/20 8:53 AM) 140/89mm Hg *H* (02/12/20 6:00 AM) Respiratory Rate [16-30 br/min] 18 br/min (02/12/20 2:00 PM) 18 br/min (02/12/20 6:00 AM) 18 br/min (02/12/20 12:22 AM) Temperature [96.8-100.4 DegF] 97.9 DegF (02/12/20 2:00 PM) 98.4 DegF (02/12/20 6:00 AM) 98.6 DegF (02/11/20 8:57 PM) Liters per Minute 3 L/min (02/11/20 4:40 PM) 5 L/min (02/11/20 4:31 PM) Mode of Delivery (Oxygen) Room air (02/12/20 2:00 PM) Room air (02/12/20 6:00 AM) Room air (02/11/20 8:57 PM) Blood pressure sites Arm, left (02/12/20 2:00 PM) Arm, right (02/12/20 6:00 AM) Arm, right (02/11/20 8:57 PM) Temperature Route Oral (02/12/20 2:00 PM) Oral (02/12/20 6:00 AM) Oral (02/11/20 8:57 PM) Dry Weight 71.6 kg (02/10/20 8:56 PM) Weight Obtained Via Bed scale (02/10/20 8:56 PM) Bed scale (02/10/20 8:06 PM) Dry Weight Obtained Via Bed scale (02/10/20 8:56 PM) Social History Social History Type Response Smoking Status Never smoker; Tobacc o user in household: No entered on: 01/26/15 Sex
--- OUTSIDE RECORDS SUMMARY | 2023-11-18 06:42 | XMS_ITS | Continuity of Care Document ---
Author Organization [facility] y Address [address] [place] [address]- Care Team Providers Care Inspector Of Weights And Measures Name Role Phone Shala Shields MD Primary Care Physician Encounter [facility] Date(s): 12/08/20 - 02/03/21 [facility] [address] [place] [address]- Attending Physician: Darío Diehl MD Admitting Physician: [...] GIVEN DATED: 11/18/11 8Admin Note: VIS GIVEN KISWAHILI 2011-04 9Admin Note: vis given vis date 12/26/2009 10Admin Note: Prevnar 11Admin Note: VIS GIVEN VIS DATE 03/26 Medications Bactrim DS 800 mg-160 mg oral tablet 1 tablet, By Mouth, Daily, # 30 tablet, 5 Refills, Maintenance, 01/25/21 10:04:00 EDT, Tablet, [facility], Partial fill upon patient request if the prescription is for a schedule II opioid drug., 1 tablet By Mouth Daily, 167.6, cm, 09... Start Date: 01/25/21 Status: Ordered Bactrim DS 800 mg-160 mg oral tablet 1 tablet, By Mouth, Every 24 hours, # 30 tablet, 5 Refills, Maintenance, 01/11/21 10:10:00 EDT, Tablet, [facility], Partial fill upon patient request [...] mL, 11 Refills, Maintenance, 02/02/21 17:36:00 EDT, [facility], replaced tablets by suspension, 167.6, cm, 02/02/21 13:00:00 EDT, Height, 69.3, kg, 02/02/21 13:00... Start Date: 02/02/21 Stop Date: 01/04/22 Status: Ordered Carafate 1 gm/10 ml oral suspension 10 mL = 1 Gm, By Mouth, 3 times a day before meals and bedtime, for 28 days, # 1,120 mL, 1 Refills,Hard Stop 02/13/21 23:29:00 EDT, 12/19/20 23:29:00 EDT, [facility]/pharmacy #[id number], replaced tablets by suspension, 166, cm, 12/19/20 9:44:00 EDT, Height, 66.9... Start Date: 12/19/20 Stop Date: 02/13/21 Status: Ordered darunavir 800 mg oral tablet 1 tablet = 800 mg, By Mouth, Daily, # 30 tablet, 5 Refills, Maintenance, 01/25/21 10:06:00 EDT, Tablet, [facility], Partial fill upon patient request if the prescription is for a schedule II opioid drug., 167.6, cm, 01/23/21 18:14:00... Start Date: 01/25/21 Status: Ordered ferrous sulfate 325 mg oral enteric coated tablet 325 mg, 1, tablet, By Mouth, Daily, # 30 tablet, Refills 1, Tot. Refills 1, Maintenance, 01/06/21 18:35:00 EDT, Route to Pharmacy Electronically, [facility], Partial fill upon patient request if the prescription is for a schedule II o... Start Date: 01/06/21 Status: Ordered Genvoya oral tablet 1 tablet, By Mouth, Daily, with food, # 30 tablet, 5 Refills, Maintenance, 01/25/21 9:51:00 EDT, Tablet, [facility], Partial fill upon patient request if the prescription is for a schedule II opioid drug., 1 tablet By Mouth Daily,Inst... Start Date: 01/25/21 Status: Ordered Genvoya oral tablet 1 tablet, By Mouth, 2 times a day, with food, # 30 tablet, 0 Refills, Maintenance, 01/11/21 10:09:00 EDT, Tablet, [facility], Partial fill upon patient request if the prescription isfor a schedule II opioid drug., 166, cm, 01/11/21 9... Start Date: 01/11/21 Status: Ordered lisinopril 10 mg oral tablet 10 mg, 1, tablet, By Mouth, Daily, # 30 tablet, Refills 1, Tot. Refills 1, Maintenance, 01/06/21 18:35:00 EDT, Route to Pharmacy Electronically, [facility], Partial fill upon patientrequest if the prescription is for a schedule II op... Start Date: 01/06/21 Stop Date: 02/05/21 Status: Ordered mirtazapine 15 mg oral tablet 0.5 tablet = 7.5 mg, By Mouth, Daily at bedtime, # 15 tablet, 4 Refills, Maintenance, 01/08/21 11:59:00 EDT, Tablet, [facility], Partial fill upon patient request if the prescriptionis for a schedule II opioid drug., 166, cm, ... Start Date: 01/08/21 Stop Date: 06/07/21 Status: Ordered [facility] Rx [...] 02/02/21 14:41:00 EDT, Route to Pharmacy Electronically, [facility]/pharmacy #[id number], 167.6, cm, 02/02/21 13:00:00 EDT, [...] 10:56:00 EDT, 12/19/20 10:56:00 EDT, REC Powder, [facility]/pharmacy #[id number], Partial fill upon patient request... Start Date: 12/19/20 Stop Date: 12/16/21 Status: Ordered Tylenol 325 mg oral tablet 650 mg, 2, tablet, By Mouth, Every 4 hours, PRN, # 24 tablet, Refills 1, Tot. Refills 1, Maintenance, for fever, 02/02/21 14:41:00 EDT, Route to Pharmacy Electronically, [facility]/pharmacy #[id number], Partial fill upon patient request [...]
--- OUTSIDE RECORDS SUMMARY | 2023-11-18 06:42 | XMS_ITS | Continuity of Care Document ---
Author Organization [facility] Address [address] [place] [address]- Care Team Providers Care Garnisher Name Role Phone Timmy MERCER, Daphney Heard Primary Care Physician Encounter [facility] Date(s): 04/21/19 - 05/01/19 [facility] [address] [place] [address]- [facility] Attending Physician: Jairo Ochoa Admitting Physician: AdmtrJairo Referring Physician: Admtr, ArPj Allergies, Adverse Reactions, Alerts Substance Reaction [...] GIVEN DATED: 11/18/11 8Admin Note: VIS GIVEN PASHTO 2011-04 9Admin Note: vis given vis date [...] 12/09/18 13:47:51 EDT, Route to Pharmacy Electronically, [id number], [facility], Please fill today Start Date: 12/09/18 Stop [...] 04/21/19 16:44:15 EST, Route to Pharmacy Electronically, [id number], [facility], 170, cm, 04/21/19 16:03:00 EST, Height Start [...]
--- OUTSIDE RECORDS SUMMARY | 2023-11-18 06:42 | XMS_ITS | Continuity of Care Document ---
Author Organization [facility] y Address [address] [place] [address]- Care Team Providers Care Director Of Distribution Name Role Phone Maisha Lin DO Primary Care Physician [place] [facility] [id number] Date(s): 02/02/20 - 03/08/20 [facility] [address] [place] [address]- Attending Physician: Darío Diehl MD Admitting Physician: [...] GIVEN DATED: 11/18/11 8Admin Note: VIS GIVEN EMIRATI 2011-04 9Admin Note: vis given vis date [...] 09/09/20 14:11:00 EDT, 02/12/20 14:11:00 EDT, Tablet, [facility]/pharmacy #[id number], 1 tablet By Mouth Daily,x30 days, 168, cm, 02/12/20 6:00:00 EDT, Height, 71.6, kg, 02/11/20 4:57:00 EDT, Start Date: 02/12/20 Stop Date: 09/09/20 Status: Ordered Carafate 1 gm oral tablet 1 Gm, 1, tablet, By Mouth, 4 times a day, # 120 tablet, Refills 0, Tot. Refills 0, Maintenance, 02/12/20 14:06:00 EDT, Route to Pharmacy Electronically, [facility]/pharmacy #[id number], 168, cm, 02/12/20 6:00:00 EDT, Height, 71.6, kg, 02/11/20 4:57:00 EDT, Dry Weight Start Date: 02/12/20 Status: Ordered docusate sodium 100 mg oral capsule 100 mg, 1, capsule, By Mouth, 2 times a day, # 28 capsule, Refills 0, Tot. Refills 0, Maintenance, 02/12/20 14:06:00 EDT, Route to Pharmacy Electronically, [facility]/pharmacy #[id number], 168, cm, 02/12/20 6:00:00 EDT, Height, 71.6, kg, 02/11/20 4:57:00 EDT, Dry... Start Date: 02/12/20 Stop Date: 02/26/20 Status: Ordered doxepin 25 mg oral capsule 3 capsule = 75 mg, By Mouth, Daily at bedtime, Please fill today, # 90 capsule, 5 Refills, Maintenance, 05/18/19 11:13:00 EST, Capsule, [facility], 170, cm, 04/21/19 16:03:00 EST, Height Start Date: 05/18/19 Stop Date: 11/14/19 Status: Ordered ferrous gluconate 324 mg (37.5 mg elemental iron) oral tablet 1 tablet = 324 mg, By Mouth, 2 times a day, # 60 tablet, 1 Refills, Maintenance, 02/29/20 12:45:00 EDT, Tablet, [facility]/pharmacy #[id number], 168, cm, 02/12/20 6:00:00 EDT, Height, 71.6, kg, 02/11/20 4:57:00 EDT, Dry Weight Start Date: 02/29/20 Stop Date: 04/29/20 Status: Ordered fluconazole 100 mg oral tablet [...] 02/10/20 8:18:00 EDT, Route to Pharmacy Electronically, [facility]/pharmacy #[id number], Please fill today, 170, cm, 02/10/20 8:01:00 EDT, Height Start Date: 02/10/20 Stop Date: 08/08/20 Status: Ordered melatonin 3 mg oral tablet 1 tablet = 3 mg, By Mouth, Daily at bedtime, for 30 days, # 30 tablet, 0 Refills, Acute 03/13/20 14:05:00 EDT, 02/12/20 14:05:00 EDT, Tablet, [facility]/pharmacy #[id number], 168, cm, 02/12/20 6:00:00 EDT, Height, 71.6, kg, 02/11/20 4:57:00 EDT, Dry Weight Start Date: 02/12/20 Stop Date: 03/13/20 Status: Ordered Norvasc 5 mg oral tablet 5 mg, 1, tablet, By Mouth, Daily, # 30 tablet, Refills 0, Tot. Refills 0, Maintenance, 02/12/20 14:04:00 EDT, Route to Pharmacy Electronically, [facility]/pharmacy #[id number], 168, cm, 02/12/20 6:00:00 EDT, Height, [...] 02/12/20 14:07:00 EDT, Route to Pharmacy Electronically, [facility]/pharmacy #[id number], 168, cm, 02/12/20 6:00:00 EDT, Height, 71.6, kg, 0... Start Date: 02/12/20 Stop Date: 03/11/20 Status: Ordered Vitamin D 95673 iu oral capsule 50,000 International_Units, 1, capsule, By Mouth, Every week, # 5 capsule, Refills 2, Tot. Refills 2, Maintenance, 02/10/20 8:14:00 EDT, Route to Pharmacy Electronically, [facility]/pharmacy #[id number], 170, cm,02/10/20 8:01:00 EDT, Height Start [...]
--- OUTSIDE RECORDS SUMMARY | 2023-11-18 06:42 | XMS_ITS | Continuity of Care Document ---
Author Organization [facility] Address [address] [place] [id number]- Care Team Providers Care Musical Instruments Assembler Name Role Phone Shala Shields MD Primary Care Physician [phone] [facility]counter [facility] Date[facility]): 12/23/22 - 01/30/[address] [address]- Attending Physician: Not on Staff, Attending MD Referring Physician: Shala Shields MD Allergies, Adverse Reactions, Alerts Substance Reaction Severity Status azithromycin 1 Persistent Mild Active rifabutin Rash Persistent Moderate Active amLODIPine 2 Active 1Rash 2Had Lower extremity ankle swelling with 10mg. Immunizations Given and Recorded Vaccine Date Status Refusal Reason SARS-CoV-2 (COVID-19) mRNA-127 vaccine 04/04/22 G iven influenza virus vaccine, [...] 09/18/22 15:52:00 EDT, [facility] fill upon patient request if the... Start Date: 09/18/22 Status: Ordered Bactrim 400 mg-80 mg oral tablet 1 tablet, By Mouth, Daily, for 30 days, # 30 tablet, 2 Refills, Acute 03/12/23 9:28:00 EDT, 12/12/22 9:28:00 EDT, [facility] fill upon patient request [...] mL, 11 Refills, Maintenance, 09/18/22 15:52:00 EDT, [facility], replaced tablets by suspension, 167.6, cm, 07/04/22 16:00:00 EST, Height, 69.3, kg, 02/02/21 13:00... Start Date: 09/18/22 Stop Date: 08/20/23 Status: Ordered Colace sodium 100 mg oral capsule 100 mg, 1, capsule, By Mouth, 2 times a day, PRN, # 60 capsule, Refills 11, Tot. Refills 11, Maintenance, for constipation, 09/18/22 15:52:00 EDT, [facility] Partial fill upon patient request if the... Start Date: 09/18/22 Status: Ordered darunavir 800 mg oral tablet 1 tablet = 800 mg, By Mouth, Daily, with food, please get labs before refills, # 90 tablet, 3 Refills, Maintenance, 11/25/22 9:47:00 EDT, Tablet, [facility], Partial fill upon patient request if the prescription is for a schedule II o... Start Date: 11/25/22 Status: Ordered diclofenac 1% topical gel 1 application, Topically, 4 times a day, # 100 Gm, 11 Refills, Maintenance, 09/18/22 15:52:00 EDT, Gel, [facility], Partial fill upon patient request if the prescription is for a schedule II opioid drug., 167.6, cm, 07/04/22 16:00:00... Start Date: 09/18/22 Status: Ordered ferrous sulfate 325 mg oral enteric coated tablet 325 mg, 1, tablet, By Mouth, Every other day, # 45 tablet, Refills 3, Tot. Refills 3, Maintenance, 09/18/22 15:52:00 EDT, Route to Pharmacy Electronically, [facility], Partial fill upon patient request if the prescription is for a hubert... Start Date: 09/18/22 Status: Ordered Genvoya oral tablet 1 tablet, By Mouth, Daily, with food, please get labs before refills, # 90 tablet, 3 Refills, Maintenance, 11/25/22 10:45:00 EDT, Tablet, [facility], Partial fill upon patient request if the prescription is for a schedule II opioid dr... Start Date: 11/25/22 Status: Ordered hydrochlorothiazide-olmesartan 25 mg-40 mg oral tablet 1 tablet, By Mouth, Daily, # 90 tablet, 3 Refills, Maintenance, 09/18/22 15:50:00 EDT, Tablet, [facility], d/c HCTZ/lisinopril, 1 tablet By Mouth Daily, 167.6, cm, 07/04/22 16:00:00 EST, Height, 69.3, kg, 02/02/21 13:00:00 EDT, Dry We... Start Date: 09/18/22 Status: Ordered MetroGel 1% topical gel 1 application, Topically, Daily, PRN facial rash, # 60 Gm, 11 Refills, Maintenance, 12/23/22 8:40:00 EDT, Gel, [facility], Partial fill upon patient request if the prescription is for a schedule II opioid drug., 1 application Topicall... Start Date: 12/23/22 Status: Ordered MiraLax oral powder for reconstitution = 17 Gm, By Mouth, Daily, PRN Constipation, dissolve in water before taking, # 527 Gm, 11 Refills, Maintenance, 09/18/22 15:52:00 EDT, REC Powder, [facility], Partial fill upon patient request [...] Refills, Soft Stop, 12/23/22 8:46:00 EDT, Powder, [facility], Partial fill upon patient request if the prescription is for a schedule II opioid drug., 0.5 mL Int... Start Date: 12/23/22 Status: Ordered Thera oral tablet 1 tablet, By Mouth, Daily, # 90 tablet, 3 Refills, Maintenance, 09/18/22 15:52:00 EDT, Tablet, [facility], Partial fill upon patient [...] pubis OA, left Confirmed Active *Catalina Diaz Nurse Substance Abuse-[facility] [phone] Confirmed Active Mild recurrent major depression Confirmed [...] Care Member Role: PCP Address: Address: [address] [place] [address] [place] [address]- Name: Kassi Wang RN Position: S RN Member Role: Primary Care Nurse Name: Isabell David RN Position: [facility] RN Member Role: Primary Care Nurse Name: Tamy Lamb RN Position: S RN Member Role: Primary Care Nurse Care Team Related Persons Name: CHERELLE OSHEAIA Address: home [address] [address] Name: SHANIKA ZAVALA Address: home [address] [place] [address]
--- OUTSIDE RECORDS SUMMARY | 2023-11-18 06:42 | XMS_ITS | Continuity of Care Document ---
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 Refills 3, Maintenance, as needed for fever, 02/20/23 13:39:00 EDT, Route to Pharmacy Electronically, [facility], Partial fill upon patient request if the prescri... Start Date: 02/20/23 Status: Ordered Bactrim 400 mg-80 mg oral tablet 1 tablet, By Mouth, Daily, BUBBLE PACK, # 90 tablet, 1 Refills, Maintenance, 02/20/23 13:37:00 EDT,Tablet, [facility], Partial fill upon patient request if [...] 02/20/23 13:39:00 EDT, Route to Pharmacy Electronically, [facility], Partial fill upon patient request if the prescri... Start Date: 02/20/23 Status: Ordered darunavir 800 mg oral tablet 1 tablet = 800 mg, By Mouth, Daily, with food, please get labs before refills; BUBBLE PACK, # 90 tablet, 1 Refills, Maintenance, 04/25/23 11:55:00 EST, Tablet, [facility], Partial fill upon patient request if the prescription is for a... Start Date: 04/25/23 Status: Ordered diclofenac 1% topical gel 1 application, Topically, 4 times a day, # 100 Gm, 11 Refills, Maintenance, 09/18/22 15:52:00 EDT, Gel, [facility], Partial fill upon patient request if the prescription is for a schedule II opioid drug., 167.6, cm, 07/04/22 16:00:00... Start Date: 09/18/22 Status: Ordered duloxetine 60 mg oral enteric coated capsule 1 capsule = 60 mg, By Mouth, Daily, start with duloxetine 30mg daily x 2 weeks then duloxetine 60mgdaily;, # 30 capsule, 4 Refills, Maintenance, 07/03/23 19:03:00 EST, EC Capsule, [facility], Partial fill upon patient request if the... Start Date: 07/03/23 Status: Ordered ferrous sulfate 325 mg oral enteric coated tablet 325 mg, 1, tablet, By Mouth, Daily, # 90 tablet, Refills 3, Tot. Refills 3, Maintenance, 08/26/23 9:38:00 EDT, Route to Pharmacy Electronically, [facility], Partial fill upon patientrequest if the prescription is for a schedule II op... Start Date: 08/26/23 Status: Ordered gabapentin 100 mg oral capsule 100 mg, 1, capsule, By Mouth, Daily at bedtime, PRN, # 30 capsule, Refills 4, Tot. Refills 4, Maintenance, Anxiety, 08/05/23 10:19:00 EDT, Route to Pharmacy Electronically, [facility], Partial fill upon patient request if the prescrip... Start Date: 08/05/23 Stop Date: 08/12/23 Status: Ordered Genvoya oral tablet 1 tablet, By Mouth, Daily, with food, please get labs before refills; BUBBLE PACK, # 90 tablet, 1 Refills, Maintenance, 04/25/23 11:55:00 EST, Tablet, [facility], Partial fill upon patient request if the prescription is for a schedule... Start Date: 04/25/23 Status: Ordered hydrochlorothiazide-olmesartan 25 mg-40 mg oral tablet 0.5 tablet, By Mouth, Daily, # 15 tablet, 4 Refills, Maintenance, 08/07/23 15:23:00 EDT, Tablet, [facility]/pharmacy #[id number], decrease dose, 0.5 tablet By Mouth Daily, 167.6, cm, 08/05/23 9:50:00 EDT, Height Start Date: 08/07/23 Status: Ordered Lidoderm 5% film 2 patch, Topically, Daily, remove patches after 12 hours; 2 patches to pain areas; can cut patches in half; do not excede 2 patches., # 60 patch, 4 Refills, Maintenance, 03/06/23 15:42:00 EDT, [facility]/pharm[facility] #[id number], Partial fill upon patient request if t... Start Date: 03/06/23 Stop Date: 08/03/23 Status: Ordered meloxicam 7.5 mg oral tablet 1 tablet = 7.5 mg, By Mouth, Daily, Talke with acetaminophen, # 14 tablet, 0 Refills, Maintenance, 08/25/23 16:16:00 EDT, Tablet, [facility], Partial fill upon [...] 4 Refills, Maintenance, 07/28/23 16:46:00 EDT, Tablet, [facility]/pharmacy #[id number], Partial fill upon patient [...] Refills, Maintenance, 07/03/23 18:52:00 EST, REC Powder, [facility], Partial fill upon patient request if the prescription is for a schedule II opioid drug., 17 Gm... Start Date: 07/03/23 Stop Date: 10/01/23 Status: Ordered Thera oral tablet 1 tablet, By Mouth, Daily, # 90 tablet, 3 Refills, Maintenance, 08/26/23 9:38:00 EDT, Tablet, [facility], Partial fill upon patient request if the prescription is for a schedule II opioid drug., 1 tablet By Mouth Daily, 167.6, cm, ... Start Date: 08/26/23 Status: Ordered Vitamin D3 1000 intl units oral capsule 1 capsule = 25 mcg, By Mouth, Daily, # 90 capsule, 3 Refills, Maintenance, 07/03/23 19:05:00 EST, Capsule, [facility], Partial fill upon [...] pubis OA, left Confirmed Active *Catalina Diaz Camp Boss-[facility] [phone] Confirmed Active Mild recurrent major depression Confirmed Active Rosacea Confirmed Active Urinary incontinence Confirmed Active Social History Social History Type Response Tobacco Use: Rolls weed in l eaf tabacco . Sex Patient Care team information Care Team Personnel Name: Jaky Nicole RN Position: [facility] RN Member Role: Primary Care Nurse Name: Rhea Brooks Position: [facility] RN Member Role: Primary Care Nurse Name: Shala Shields MD Position: [facility] Physician - Primary Care Member Role: PCP Address: Address: [address] [place] [address] Name: Kassi Wang RN Position: [facility] RN Member Role: Primary Care Nurse Name: Isabell David RN Position: [facility] ERNESTO Office Staff Member Role: Primary Care Nurse Care Team Related Persons Name: REYES OSHEA Address: home [address] [address] Name: SHANIKA ZAVALA Address: home [address] [place] [address]
--- OUTSIDE RECORDS SUMMARY | 2023-11-18 06:42 | XMS_ITS | Continuity of Care Document ---
Author Organization [facility] Address [address] [place] [address]- Care Team Providers Care Piece Hand Name Role Phone Cornelius REDDY, Shala Kuo Primary Care Physician [facility]): 09[facility]23 - 10/11/23 [facility] [address] [place], [place] [phone] Attending Physician: Admying, Jairo Admitting Physician: AdmtrJairo Referring Physician: Admtr, Ar8 Allergies, Adverse Reactions, Alerts Substance Reaction Severity Status azithromycin 1 Persistent Mild Active rifabutin Rash Persistent Moderate Active amLODIPine 2 Active 1Rash 2Had Lower extremity ankle swelling with 10mg. Immunizations Given and Recorded Vaccine Date Status Refusal Reason SARS-CoV-2 (COVID-19) mRNA-5834 vaccine 04/04/22 G iven influenza virus vaccine, [...] 02/20/23 13:39:00 EDT, Route to Pharmacy Electronically, [facility], [...] 02/20/23 13:39:00 EDT, Route to Pharmacy Electronically, [facility], Partial fill upon patient request if the prescri... Start Date: 02/20/23 Status: Ordered darunavir 800 mg oral tablet 1 tablet = 800 mg, By Mouth, Daily, with food, please get labs before refills; BUBBLE PACK, # 90 tablet, 1 Refills, Maintenance, 09/29/23 14:29:00 EDT, Tablet, [facility], Partial fill upon patient request if the prescription is for a... Start Date: 09/29/23 Status: Ordered diclofenac 1% topical gel 1 application, Topically, 4 times a day, # 100 Gm, 11 Refills, Maintenance, 09/18/22 15:52:00 EDT, Gel, [facility], Partial fill upon [...] Refills, Maintenance, 07/03/23 19:03:00 EST, EC Capsule, [facility], Partial fill upon patient request if the... Start Date: 07/03/23 Status: Ordered ferrous sulfate 325 mg oral enteric coated tablet 325 mg, 1, tablet, By Mouth, Daily, # 90 tablet, Refills 3, Tot. Refills 3, Maintenance, 08/26/23 9:38:00 EDT, Route to Pharmacy Electronically, [facility], Partial fill upon patientrequest if the [...] 09/24/23 14:21:00 EDT, Route to Pharmacy Electronically, [facility],... Start Date: 09/24/23 Status: Ordered Genvoya oral tablet 1 tablet, By Mouth, Daily, with food, please get labs before refills; BUBBLE PACK, # 90 tablet, 1 Refills, Maintenance, 09/29/23 14:29:00 EDT, Tablet, [facility], Partial fill upon patient request if the prescription is for a schedule... Start Date: 09/29/23 Status: Ordered hydrochlorothiazide-olmesartan 25 mg-40 mg oral tablet 0.5 tablet, By Mouth, Daily, # 15 tablet, 4 Refills, Maintenance, 08/07/23 15:23:00 EDT, Tablet, [facility]/pharmacy #[id number], decrease dose, 0.5 tablet By Mouth Daily, 167.6, cm, 08/05/23 9:50:00 EDT, Height Start Date: 08/07/23 Status: Ordered hydrOXYzine pamoate 25 mg oral capsule 1 capsule = 25 mg, By Mouth, 4 times a day, PRN for anxiety, # 120 capsule, 0 Refills, Maintenance,09/11/23 19:24:00 EDT, Capsule, [facility]/pharm[facility] #[id number], Partial fill upon patient request if the prescription is for a schedule II opioid drug., 167.6, cm,... Start Date: 09/11/23 Status: Ordered Lidoderm 5% film 2 patch, Topically, Daily, remove patches after 12 hours; 2 patches to pain areas; can cut patches in half; do not excede 2 patches., # 60 patch, 4 Refills, Maintenance, 03/06/23 15:42:00 EDT, [facility]/pharmacy #[id number], Partial fill upon patient request if t... Start Date: 03/06/23 Stop Date: 08/03/23 Status: Ordered meloxicam 7.5 mg oral tablet 1 tablet = 7.5 mg, By Mouth, Daily, Talke with acetaminophen, # 14 tablet, 0 Refills, Maintenance, 08/25/23 16:16:00 EDT, Tablet, [facility], Partial fill upon patient request if theprescription is for a schedule II opioid drug., 167... Start Date: 08/25/23 Stop Date: 09/08/23 Status: [facility], Maintenance, Calcium/Mg/ Zinc 1 tablet daily, 01/23/21 17:47:00 EDT, Supply Start Date: 01/23/21 Status: Ordered oxyCODONE 10 mg oral tablet 1 tablet = 10 mg, By Mouth, Every 6 hours, [place] Pat checked, opioid agreement, chronic pain; incdrease dose on 09/25/2023, # 112 tablet, 0 Refills, Maintenance, 10/08/23 13:38:00 EDT, Tablet, [facility]/pharmacy #[id number], Partial fill upon patient [...] Refills, Maintenance, 07/03/23 18:52:00 EST, REC Powder, [facility], Partial fill upon patient request if the prescription is for a schedule II opioid drug., 17 Gm... Start Date: 07/03/23 Stop Date: 10/01/23 Status: Ordered Thera oral tablet 1 tablet, By Mouth, Daily, # 90 tablet, 3 Refills, Maintenance, 08/26/23 9:38:00 EDT, Tablet, [facility], Partial fill upon patient request if the prescription is for a schedule II opioid drug., 1 tablet By Mouth Daily, 167.6, cm, ... Start Date: 08/26/23 Status: Ordered Vitamin D3 1000 intl units oral capsule 1 capsule = 25 mcg, By Mouth, Daily, # 90 capsule, 3 Refills, Maintenance, 07/03/23 19:05:00 EST, Capsule, [facility], Partial fill upon patient request if [...] pubis OA, left Confirmed Active *Catalina Diaz Phlebotomist Supervisor/Instructor-[facility] [phone] Confirmed Active Depression, Mild recurrent major Confirmed Active Rosacea Confirmed Active Urinary incontinence Confirmed Active Social History Social History Type Response Tobacco Use: Rolls weed in l eaf tabacco . Sex Laboratory * Event Display: Non BH Lab Results Authored Date: * Event Display: Non BH Lab Results Authored Date: Radiology * Event Display: X-Ray Spine, Non- BH Authored Date: * Event Display: MRI Hip/Groin, Non- BH Authored Date: * Event Display: IR Special Procedures, Non-BH Authored Date: * Event Display: CT Scan Abdomen, Non- BH Authored Date: MG Breast Views * Event Display: MM Mammogram Authored Date: Note * Francesca Silvestre: PERFORM, SIGN, VERIFY Event Display: Patient Education/Instruction Authored Date: [facility] Clinical Summary Person Information Name JASON [...] primary care provider, you may find a [facility] provider by calling [facility] at [phone]. Patient Education Information Follow-up Details: Patient Education Material: Patient Care team information Care Team Personnel Name: Jaky Nicole RN Position: [facility] RN Member Role: Primary Care Nurse Name: Rhea Brooks Position: S RN Member Role: Primary Care Nurse Name: Shala Shields MD Position: S Physician - Primary Care Member Role: PCP Address: Address: [address] [place] [address] Adult Medicine [address] Name: Kassi Wang RN Position: S RN Member Role: Primary Care Nurse Name: Isabell David RN Position: [facility] Office Staff Member Role: Primary Care Nurse Care Team Related Persons Name: OSHEA REYES Address: home [address] [address] Name: SHANIKA ZAVALA Address: home [address] [place] [address]
--- OUTSIDE RECORDS SUMMARY | 2023-11-18 06:42 | XMS_ITS | Continuity of Care Document ---
Author Organization [facility] Address [address] [place] [address]- Care Team Providers Care Cableway Operator Name Role Phone Shala Shields MD Primary Care Physician [facility]counter [facility] Date(s): 02/06/22 - 03/08/22 [facility] [address] [place] [address]- Allergies, Adverse Reactions, Alerts Substance Reaction Severity [...] GIVEN DATED: 11/18/11 8Admin Note: VIS GIVEN THAI 2011-04 9Admin Note: vis given vis date 12/26/2009 10Admin Note: Prevnar 11Admin Note: VIS GIVEN VIS DATE 03/26 Medications acetaminophen 325 mg oral tablet 650 mg, 2, tablet, By Mouth, 3 times a day, PRN, # 180 tablet, Refills 11, Tot. Refills 11, Maintenance, as needed for fever, 01/28/22 14:53:00 EDT, Route to Pharmacy Electronically, [facility], Partial fill upon patient request [...] mL, 11 Refills, Maintenance, 02/02/21 17:36:00 EDT, [facility], replaced tablets by suspension, 167.6, cm, 02/02/21 13:00:00 EDT, Height, 69.3, kg, 02/02/21 13:00... Start Date: 02/02/21 Stop Date: 01/04/22 Status: Ordered Colace sodium 100 mg oral capsule 100 mg, 1, capsule, By Mouth, 2 times a day, PRN, # 60 capsule, Refills 11, Tot. Refills 11, Maintenance, for constipation, 02/08/21 20:01:00 EDT, Route to Pharmacy Electronically, [facility]/pharmacy #[id number], Partial fill upon patient request if the prescript... Start Date: 02/08/21 Status: Ordered darunavir 800 mg oral tablet 1 tablet = 800 mg, By Mouth, Daily, with food, please get labs before refills, # 90 tablet, 3 Refills, Maintenance, 11/28/21 12:11:00 EDT, Tablet, [facility], Partial fill upon patient request if the prescription is for a schedule II... Start Date: 11/28/21 Status: Ordered diclofenac 1% topical gel 1 application, Topically, 4 times a day, # 100 Gm, 11 Refills, Maintenance, 12/06/21 19:06:00 EDT, Gel, [facility]/pharmacy #[id number], Partial fill upon patient request if the prescription is for a schedule II opioid drug., 167.6, cm, 12/06/21 18:07:00 EDT, Heig... Start Date: 12/06/21 Status: Ordered duloxetine 60 mg oral enteric coated capsule 1 capsule = 60 mg, By Mouth, Daily, # 30 capsule, 11 Refills, Maintenance, 03/05/22 12:42:00 EDT, EC Capsule, [facility], Partial fill upon patient request if the prescription is fora schedule II opioid drug., 167.6, cm, 03/05/22 9:5... Start Date: 03/05/22 Status: Ordered ferrous sulfate 325 mg oral enteric coated tablet 325 mg, 1, tablet, By Mouth, Every other day, # 30 tablet, Refills 11, Tot. Refills 11, Maintenance, 12/06/21 19:06:00 EDT, Route to Pharmacy Electronically, [facility]/pharmacy #[id number], Partial fill upon patient request if the prescription is for a schedule I... Start Date: 12/06/21 Status: Ordered Genvoya oral tablet 1 tablet, By Mouth, Daily, with food, please get labs before refills, # 90 tablet, 3 Refills, Maintenance, 11/28/21 12:10:00 EDT, Tablet, [facility], Partial fill upon patient request if the prescription is for a schedule II opioid dr... Start Date: 11/28/21 Status: Ordered hydrochlorothiazide-lisinopril 25 mg-20 mg oral tablet 1 tablet, By Mouth, Daily, please get labs before refills, # 30 tablet, 11 Refills, Maintenance, 01/28/22 14:55:00 EDT, Tablet, [facility], d/c lisinopril 40 mg - change to combo med, 1 tablet By Mouth Daily,Instr:please get labs befo... Start Date: 01/28/22 Status: Ordered metroNIDAZOLE 0.75% topical gel 1 applicator, Vaginally, Daily, # 70 Gm, 0 Refills, Maintenance, 11/20/21 14:08:00 EDT, [facility], Partial fill upon patient request if the prescription is for a schedule II opioid drug., 1 applicator Vaginally Daily,x5 days, 167.6,... Start Date: 11/20/21 Stop Date: 11/25/21 Status: Ordered MiraLax oral powder for reconstitution = 17 Gm, By Mouth, Daily, PRN Constipation, dissolve in water before taking, # 527 Gm, 11 Refills, Maintenance, 02/08/21 20:01:00 EDT, REC Powder, [facility]/pharmacy #[id number], Partial fill upon patient request if the prescription is for a schedule II opioid drMichelle Start Date: 02/08/21 Status: Ordered Misc Rx [...] 11 Refills, Maintenance, 03/09/21 16:13:00 EDT, Tablet, [facility], Partial fill upon patient request if the prescription is for a schedule IIopioid drug., 1 tablet By Mouth Daily, 167.6, cm, 1... Start Date: 03/09/21 Status: Ordered Wellbutrin XL 150 mg/24 hours oral tablet, extended release 1 tablet = 150 mg, By Mouth, Every 24 hours, # 30 tablet, 4 Refills, Maintenance, 03/05/22 12:43:00EDT, ER Tablet, [facility], Partial fill upon patient request if the prescription is for a schedule II opioid drug., 167.6, cm, 03/05/... Start Date: 03/05/22 Status: Ordered Problem List Condition Confirmation Course [...] Iron deficiency anemia Confirmed Active *Catalina Diaz Client Service Manager-[facility] [phone] Confirmed Active Mild recurrent major depression Confirmed Active Urinary incontinence Confirmed Active 1EGD 07/2010 - likely apthous ulcers with very morbid 2 weeks of weight loss and requiring IV fluids Social History Social History Type Response Smoking Status Never smoker; Tobacc o user in household: No entered on: 01/26/15 Sex Patient Care team information Personnel Name: Cornelius REDDY, Shala Kuo Address: Address: [address] [place] [address], C-Level [facility] [place], [place] [address]
--- OUTSIDE RECORDS SUMMARY | 2023-11-18 06:42 | XMS_ITS | Continuity of Care Document ---
Author Organization [facility] Address [address] [place] [address]- Care Team Providers Care Solution Engineer Name Role Phone Maisha Lin DO Primary Care Physician Encounter [facility] Date(s): 04/18/20 - 05/18/20 [facility] [address] [place] [address]- Allergies, Adverse Reactions, Alerts Substance Reaction Severity [...] influenza virus vaccine, inactivated 3 06/18/16 Gi farahn influenza virus vaccine, inactivated 4 04/04/15 Gi [...] 10/12/20 9:47:00 EDT, 03/16/20 9:47:00 EDT, Tablet, [facility], 1 tablet By Mouth Daily,x30 days, 168, cm, 03/16/20 8:08:00 EDT, Height, 71.6, kg, 02/11/20 4:57:00... Start Date: 03/16/20 Stop Date: 10/12/20 Status: Ordered darunavir 800 mg oral tablet 1 tablet = 800 mg, By Mouth, Daily, # 30 tablet, 2 Refills, Maintenance, 03/16/20 9:01:00 EDT, Tablet, [facility], 168, cm, 03/16/20 8:08:00 EDT, Height, 71.6, kg, 02/11/20 4:57:00 EDT, Dry Weight Start Date: 03/16/20 Stop Date: 06/14/20 Status: Ordered docusate sodium 100 mg oral capsule 100 mg, 1, capsule, By Mouth, 2 times a day, # 28 capsule, Refills 3, Tot. Refills 3, Maintenance, 03/16/20 9:41:00 EDT, Route to Pharmacy Electronically, [facility], 168, cm, 03/16/20 8:08:00 EDT, Height, 71.6, kg, 02/11/20 4:57:00 E... Start Date: 03/16/20 Stop Date: 05/11/20 Status: Ordered doxepin 25 mg oral capsule 3 capsule = 75 mg, By Mouth, Daily at bedtime, Please fill today, # 90 capsule, 5 Refills, Maintenance, 03/16/20 9:49:00 EDT, Capsule, [facility], 168, cm, 03/16/20 8:08:00 EDT, Height, 71.6, kg, 02/11/20 4:57:00 EDT, Dry Weight Start Date: 03/16/20 Stop Date: 09/12/20 Status: Ordered ferrous sulfate 325 mg oral enteric coated tablet 325 mg, 1, tablet, By Mouth, Daily, # 30 tablet, Refills 5, Tot. Refills 5, Maintenance, 04/24/20 11:06:00 EST, Route to Pharmacy Electronically, [facility]/pharmacy #[id number], Partial fill upon patient requestif the prescription is for a schedule II opioid sudhir... Start Date: 04/24/20 Stop Date: 10/21/20 Status: Ordered Genvoya oral tablet 1 tablet, By Mouth, Daily, with food, # 30 tablet, 2 Refills, Maintenance, 03/16/20 9:00:00 EDT, Tablet, [facility], 1 tablet By Mouth Daily,x30 days,Instr:with food, 168, cm, 03/16/20 8:08:00 EDT, Height, 71.6, kg, 02/11/20 4:57:00 E... Start Date: 03/16/20 Stop Date: 06/14/20 Status: Ordered influenza virus vaccine, inactivated adjuvanted preservative-free quadrivalent intramuscular susp 0.5 mL, Intramuscular, Once, # 0.5 mL, 0 Refills, Soft Stop, 03/16/20 8:57:00 EDT, Suspension, [facility] 0.5 mL Intramuscular Once, 168, cm, 03/16/20 8:08:00 EDT, Height, 71.6, kg, 02/11/20 4:57:00 EDT, Dry Weight Start Date: 03/16/20 Status: Ordered lisinopril 20 mg oral tablet 20 mg, 1, tablet, By Mouth, Daily, # 30 tablet, Refills 5, Tot. Refills 5, Maintenance, 03/16/20 9:46:00 EDT, Route to Pharmacy Electronically, [facility], Please buble pack, 168, [...]
--- OUTSIDE RECORDS SUMMARY | 2023-11-18 06:42 | XMS_ITS | Continuity of Care Document ---
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 Equipment Repairer Name Role Phone Shala Shields MD Primary Care Physician [phone] Encounter [facility] Date(s): 01/14/22 - 02/13/22 [facility] [address] [place] [id number] Attending Physician: AdmJairo he Admitting [...] GIVEN DATED: 11/18/11 8Admin Note: VIS GIVEN SETS[place] 2011-04 9Admin Note: vis given vis date 12/26/2009 10Admin Note: Prevnar 11Admin Note: VIS GIVEN VIS DATE 03/26 Medications acetaminophen 325 mg oral tablet 650 mg, 2, tablet, By Mouth, 3 times a day, PRN, # 180 tablet, Refills 11, Tot. Refills 11, Maintenance, as needed for fever, 01/28/22 14:53:00 EDT, Route to Pharmacy Electronically, [facility], Partial fill upon patient [...] mL, 11 Refills, Maintenance, 02/02/21 17:36:00 EDT, [facility], replaced tablets by suspension, 167.6, cm, 02/02/21 13:00:00 EDT, Height, 69.3, kg, 02/02/21 13:00... Start Date: 02/02/21 Stop Date: 01/04/22 Status: Ordered Colace sodium 100 mg oral capsule 100 mg, 1, capsule, By Mouth, 2 times a day, PRN, # 60 capsule, Refills 11, Tot. Refills 11, Maintenance, for constipation, 02/08/21 20:01:00 EDT, Route to Pharmacy Electronically, [facility]/pharmacy #[id number], Partial fill upon patient request if the prescript... Start Date: 02/08/21 Status: Ordered darunavir 800 mg oral tablet 1 tablet = 800 mg, By Mouth, Daily, with food, please get labs before refills, # 90 tablet, 3 Refills, Maintenance, 11/28/21 12:11:00 EDT, Tablet, [facility], Partial fill upon patient request if the prescription is for a schedule II... Start Date: 11/28/21 Status: Ordered diclofenac 1% topical gel 1 application, Topically, 4 times a day, # 100 Gm, 11 Refills, Maintenance, 12/06/21 19:06:00 EDT, Gel, [facility]/pharmacy #[id number], Partial fill upon patient request if the prescription is for a schedule II opioid drug., 167.6, cm, 12/06/21 18:07:00 EDT, Heig... Start Date: 12/06/21 Status: Ordered duloxetine 30 mg oral enteric coated capsule 1 capsule = 30 mg, By Mouth, Daily, start with duloxetine 30mg daily x 2 weeks then duloxetine 60mgdaily, # 14 capsule, 0 Refills, Maintenance, 12/06/21 19:06:00 EDT, [facility]/pharmacy #[id number], Partial fill upon patient request if the prescription is for a... Start Date: 12/06/21 Stop Date: 12/20/21 Status: Ordered duloxetine 60 mg oral enteric coated capsule 1 capsule = 60 mg, By Mouth, Daily, start with duloxetine 30mg daily x 2 weeks then duloxetine 60mgdaily, # 30 capsule, 4 Refills, Maintenance, 12/06/21 19:06:00 EDT, EC Capsule, [facility]/pharmacy #[id number],Partial fill upon patient request if the prescripti... Start Date: 12/06/21 Status: Ordered ferrous sulfate 325 mg oral enteric coated tablet 325 mg, 1, tablet, By Mouth, Every other day, # 30 tablet, Refills 11, Tot. Refills 11, Maintenance, 12/06/21 19:06:00 EDT, Route to Pharmacy Electronically, [facility]/pharmacy #[id number], Partial fill upon patient request if the prescription is for a schedule I... Start Date: 12/06/21 Status: Ordered Genvoya oral tablet 1 tablet, By Mouth, Daily, with food, please get labs before refills, # 90 tablet, 3 Refills, Maintenance, 11/28/21 12:10:00 EDT, Tablet, [facility], Partial fill upon patient request if the prescription is for a schedule II opioid Start Date: 11/28/21 Status: Ordered hydrochlorothiazide-lisinopril 25 mg-20 mg oral tablet 1 tablet, By Mouth, Daily, please get labs before refills, # 30 tablet, 11 Refills, Maintenance, 01/28/22 14:55:00 EDT, Tablet, [facility], d/c lisinopril 40 mg - change to combo med, 1 tablet By Mouth Daily,Instr:please get labs befo... Start Date: 01/28/22 Status: Ordered metroNIDAZOLE 0.75% topical gel 1 applicator, Vaginally, Daily, # 70 Gm, 0 Refills, Maintenance, 11/20/21 14:08:00 EDT, [facility], Partial fill upon patient request if the prescription is for a schedule II opioid drug., 1 applicator Vaginally Daily,x5 days, 167.6,... Start Date: 11/20/21 Stop Date: 11/25/21 Status: Ordered MiraLax oral powder for reconstitution = 17 Gm, By Mouth, Daily, PRN Constipation, dissolve in water before taking, # 527 Gm, 11 Refills, Maintenance, 02/08/21 20:01:00 EDT, REC Powder, [facility]/pharmacy #[id number], Partial fill upon patient request [...] 11 Refills, Maintenance, 03/09/21 16:13:00 EDT, Tablet, [facility], Partial fill upon patient [...] Iron deficiency anemia Confirmed Active *Catalina Diaz Biology Internship-[facility] [phone] Confirmed Active Mild recurrent major depression Confirmed Active Urinary incontinence Confirmed Active 1EGD 07/2010 - likely apthous ulcers with very morbid 2 weeks of weight loss and requiring IV fluids Social History Social History Type Response Smoking Status Never smoker; Tobacc o user in household: No entered on: 01/26/15 Sex Patient Care team information Personnel Name: Cornelius REDDY, Shala Kuo Address: Address: [address] [place] [address], -Level [facility] [address]
--- OUTSIDE RECORDS SUMMARY | 2023-11-18 06:42 | XMS_ITS | Continuity of Care Document ---
Author Organization [facility] Address [address] [place] [address]- Care Team Providers Care Motorcycle Technician Name Role Phone Shala Shields MD Primary Care Physician Encounter [facility] Date(s): 01/25/22 - 04/27/22 [facility] [address] [place] [id number] Attending Physician: Shala Shields MD Admitting [...] 11/18/11 8Admin Note: VIS GIVEN [place] 2011-04 9Admin Note: vis given vis date 12/26/2009 10Admin Note: Prevnar 11Admin Note: VIS GIVEN VIS DATE 03/26 Medications acetaminophen 325 mg oral tablet 650 mg, 2, tablet, By Mouth, 3 times a day, PRN, # 180 tablet, Refills 11, Tot. Refills 11, Maintenance, as needed for fever, 01/28/22 14:53:00 EDT, Route to Pharmacy Electronically, [facility], Partial fill upon patient request if [...] mL, 11 Refills, Maintenance, 03/29/22 11:16:00 EST, [facility], replaced tablets by suspension, 167.6, cm, 03/05/22 9:57:00 EDT, Height, 69.3, kg, 02/02/21 13:00:... Start Date: 03/29/22 Stop Date: 02/28/23 Status: Ordered Colace sodium 100 mg oral capsule 100 mg, 1, capsule, By Mouth, 2 times a day, PRN, # 60 capsule, Refills 11, Tot. Refills 11, Maintenance, for constipation, 03/29/22 11:16:00 EST, [facility], Partial fill upon patient request if the... Start Date: 03/29/22 Status: Ordered darunavir 800 mg oral tablet 1 tablet = 800 mg, By Mouth, Daily, with food, please get labs before refills, # 90 tablet, 3 Refills, Maintenance, 11/28/21 12:11:00 EDT, Tablet, [facility], Partial fill upon patient request if the prescription is for a schedule II... Start Date: 11/28/21 Status: Ordered diclofenac 1% topical gel 1 application, Topically, 4 times a day, # 100 Gm, 11 Refills, Maintenance, 12/06/21 19:06:00 EDT, Gel, [facility]/pharmacy #[id number], Partial fill upon patient request if the prescription is for a schedule II opioid drug., 167.6, cm, 12/06/21 18:07:00 EDT, Heig... Start Date: 12/06/21 Status: Ordered duloxetine 60 mg oral enteric coated capsule 1 capsule = 60 mg, By Mouth, Daily, # 30 capsule, 11 Refills, Maintenance, 03/05/22 12:42:00 EDT, EC Capsule, [facility], Partial fill upon patient request if the prescription is fora schedule II opioid drug., 167.6, cm, 03/05/22 9:5... Start Date: 03/05/22 Status: Ordered ferrous sulfate 325 mg oral enteric coated tablet 325 mg, 1, tablet, By Mouth, Every other day, # 30 tablet, Refills 11, Tot. Refills 11, Maintenance, 12/06/21 19:06:00 EDT, Route to Pharmacy Electronically, [facility]/pharmacy #[id number], Partial fill upon patient request if the prescription is for a schedule I... Start Date: 12/06/21 Status: Ordered Genvoya oral tablet 1 tablet, By Mouth, Daily, with food, please get labs before refills, # 90 tablet, 3 Refills, Maintenance, 11/28/21 12:10:00 EDT, Tablet, [facility], Partial fill upon patient request if the prescription is for a schedule II opioid drShilo. Start Date: 11/28/21 Status: Ordered hydrochlorothiazide-olmesartan 25 mg-40 mg oral tablet 1 tablet, By Mouth, Daily, # 30 tablet, 4 Refills, Maintenance, 04/04/22 19:39:00 EST, Tablet, [facility], d/c HCTZ/lisinopril, 1 tablet By Mouth Daily, 167.6, cm, 04/04/22 19:29:00 EST, Height, 69.3, kg, 02/02/21 13:00:00 EDT, Dry We... Start Date: 04/04/22 Status: Ordered metroNIDAZOLE 0.75% topical gel 1 applicator, Vaginally, Daily, # 70 Gm, 0 Refills, Maintenance, 11/20/21 14:08:00 EDT, [facility], Partial fill upon patient request if the prescription is for a schedule II opioid drug., 1 applicator Vaginally Daily,x5 days, 167.6,... Start Date: 11/20/21 Stop Date: 11/25/21 Status: Ordered MiraLax oral powder for reconstitution = 17 Gm, By Mouth, Daily, PRN Constipation, dissolve in water before taking, # 527 Gm, 11 Refills, Maintenance, 03/29/22 11:16:00 EST, REC Powder, [facility], Partial fill upon patient request if the prescription is for a schedule II... Start Date: 03/29/22 Status: Ordered mirtazapine 15 mg oral tablet 1 tablet = 15 mg, By Mouth, Daily at bedtime, please get labs before refills, # 30 tablet, 11 Refills, Maintenance, 03/28/22 20:40:00 EST, Tablet, [facility], increase dose, 167.6, cm, 03/05/22 9:57:00 [...] 11 Refills, Maintenance, 03/29/22 11:15:00 EST, Tablet, [facility], Partial fill upon patient request if the prescription is for a schedule IIopioid drug., 1 tablet By Mouth Daily, 167.6, cm, 1... Start Date: 03/29/22 Status: Ordered Wellbutrin XL 300 mg/24 hours oral tablet, extended release 1 tablet = 300 mg, By Mouth, Daily, # 30 tablet, 4 Refills, Maintenance, 04/04/22 19:36:00 EST, ER Tablet, [facility], Partial fill upon [...] deficiency anemia Confirmed Active *Catalina Diaz Lead Retail Sales Associate-[facility] [phone] Confirmed Active Mild recurrent major depression Confirmed [...] Care Nurse Name: Shala Shields MD Position: [facility] Primary Care Physician Member Role: PCP Address: Address: [address] [place] [address], -[facility] [place], [place] [address] Name: Kassi Wang RN Position: [facility] RN Member Role: Primary Care Nurse Name: Isabell David RN Position: [facility] SN RN Member Role: Primary Care Nurse Care Team Related Persons Name: REYES OSHEA Address: home [address] [address] Name: SHANIKA ZAVALA Address: home [address] [address]
--- OUTSIDE RECORDS SUMMARY | 2023-11-18 06:43 | XMS_ITS | Continuity of Care Document ---
Author Organization [facility] y Address [address] [place] [address]- Care Team Providers Care In Processing Instructor Name Role Phone Shala Shields MD Primary Care Physician [facility]counter [facility] Date(s): 03/08/21 - 04/07/21 [facility] [address], [place] [address] Attending Physician: AdmJairo he Admitting Physician: Admtr, [...] 5 Refills, Maintenance, 01/25/21 10:04:00 EDT, Tablet, [facility], Partial fill upon patient [...] mL, 11 Refills, Maintenance, 02/02/21 17:36:00 EDT, [facility], replaced tablets by suspension, 167.6, cm, 02/02/21 13:00:00 EDT, Height, 69.3, kg, 02/02/21 13:00... Start Date: 02/02/21 Stop Date: 01/04/22 Status: Ordered Colace sodium 100 mg oral capsule 100 mg, 1, capsule, By Mouth, 2 times a day, PRN, # 60 capsule, Refills 11, Tot. Refills 11, Maintenance, for constipation, 02/08/21 20:01:00 EDT, Route to Pharmacy Electronically, [facility]/pharmacy #[id number], Partial fill upon patient request if the prescript... Start Date: 02/08/21 Status: Ordered darunavir 800 mg oral tablet 1 tablet = 800 mg, By Mouth, Daily, # 30 tablet, 5 Refills, Maintenance, 01/25/21 10:06:00 EDT, Tablet, [facility], Partial fill upon patient request if the prescription is for a schedule II opioid drug., 167.6, cm, 01/23/21 18:14:00... Start Date: 01/25/21 Status: Ordered ferrous sulfate 325 mg oral enteric coated tablet 325 mg, 1, tablet, By Mouth, Daily, # 30 tablet, Refills 11, Tot. Refills 11, Maintenance, 03/02/2112:59:00 EDT, Route to Pharmacy Electronically, [facility], Partial fill upon patient request if the prescription is for a schedule II... Start Date: 03/02/21 Status: Ordered Genvoya oral tablet 1 tablet, By Mouth, Daily, with food, # 30 tablet, 5 Refills, Maintenance, 01/25/21 9:51:00 EDT, Tablet, [facility], Partial fill upon patient request if the prescription is for a schedule II opioid drug., 1 tablet By Mouth Daily,Inst... Start Date: 01/25/21 Status: Ordered lisinopril 40 mg oral tablet 1 tablet = 40 mg, By Mouth, Daily, # 30 tablet, 11 Refills, Maintenance, 03/08/21 8:46:00 EDT, Tablet, [facility], Dose increased, 167.6, cm, 02/19/21 16:01:00 EDT, Height, 69.3, kg,02/02/21 13:00:00 EDT, Dry Weight Start Date: 03/08/21 Status: Ordered MiraLax oral powder for reconstitution = 17 Gm, By Mouth, Daily, PRN Constipation, dissolve in water before taking, # 527 Gm, 11 Refills, Maintenance, 02/08/21 20:01:00 EDT, REC Powder, [facility]/pharmacy #[id number], Partial fill upon patient request if the prescription is for a schedule II opioid dr... Start Date: 02/08/21 Status: Ordered mirtazapine 15 mg oral tablet 1 tablet = 15 mg, By Mouth, Daily at bedtime, # 30 tablet, 4 Refills, Maintenance, 02/19/21 16:53:00 EDT, Tablet, [facility], increase dose, 167.6, cm, 02/19/21 16:01:00 EDT, Height,69.3, kg, 02/02/21 13:00:00 EDT, Dry Weight Start Date: 02/19/21 Stop Date: 07/19/21 Status: Ordered [facility] Rx Refills 0, Maintenance, Calcium/Mg/ [...] 02/02/21 14:41:00 EDT, Route to Pharmacy Electronically, [facility]/pharmacy #[id number], 167.6, cm, 02/02/21 13:00:00 [...] 10:56:00 EDT, 12/19/20 10:56:00 EDT, REC Powder, [facility]/pharmacy #[id number], Partial fill upon patient request... Start Date: 12/19/20 Stop Date: 12/16/21 Status: Ordered Thera oral tablet 1 tablet, By Mouth, Daily, # 30 tablet, 11 Refills, Maintenance, 03/09/21 16:13:00 EDT, Tablet, [facility], Partial fill upon [...] 02/02/21 14:41:00 EDT, Route to Pharmacy Electronically, [facility]/pharmacy #[id number], Partial fill upon patient request if the [...]
--- OUTSIDE RECORDS SUMMARY | 2023-11-18 06:43 | XMS_ITS | Continuity of Care Document ---
Author Organization [facility] Address [address] [place] [address]- Care Team Providers Care Hyperion Developer Name Role Phone Maisha Lin DO Primary Care Physician Encounter [facility] Date(s): 04/24/20 - 05/24/20 [facility] [address] [place], [place] [address] Attending Physician: Jairo Ochoa Admitting Physician: AdmJairo he Referring Physician: Admtr, Ar8 Allergies, Adverse Reactions, [...] DATED: 11/18/11 8Admin Note: VIS GIVEN CAMEROONIAN 2010- 9Admin Note: vis given vis date 12/26/2009 10Admin Note: Prevnar 11Admin Note: VIS GIVEN VIS DATE 03/26 Medications Bactrim DS 800 mg-160 mg oral tablet 1 tablet, By Mouth, Daily, for 30 days, # 30 tablet, 6 Refills, Acute 10/12/20 9:47:00 EDT, 03/16/20 9:47:00 EDT, Tablet, [facility], 1 tablet By Mouth Daily,x30 days, 168, cm, 03/16/20 8:08:00 EDT, Height, 71.6, kg, 02/11/20 4:57:00... Start Date: 03/16/20 Stop Date: 10/12/20 Status: Ordered darunavir 800 mg oral tablet 1 tablet = 800 mg, By Mouth, Daily, # 30 tablet, 2 Refills, Maintenance, 03/16/20 9:01:00 EDT, Tablet, [facility], 168, cm, 03/16/20 8:08:00 EDT, Height, 71.6, kg, 02/11/20 4:57:00 EDT, Dry Weight Start Date: 03/16/20 Stop Date: 06/14/20 Status: Ordered docusate sodium 100 mg oral capsule 100 mg, 1, capsule, By Mouth, 2 times a day, # 28 capsule, Refills 3, Tot. Refills 3, Maintenance, 03/16/20 9:41:00 EDT, Route to Pharmacy Electronically, [facility], 168, cm, 03/16/20 8:08:00 EDT, Height, 71.6, kg, 02/11/20 4:57:00 E... Start Date: 03/16/20 Stop Date: 05/11/20 Status: Ordered doxepin 25 mg oral capsule 3 capsule = 75 mg, By Mouth, Daily at bedtime, Please fill today, # 90 capsule, 5 Refills, Maintenance, 03/16/20 9:49:00 EDT, Capsule, [facility], 168, cm, 03/16/20 8:08:00 EDT, Height, 71.6, kg, 02/11/20 4:57:00 EDT, Dry Weight Start Date: 03/16/20 Stop Date: 09/12/20 Status: Ordered ferrous sulfate 325 mg oral enteric coated tablet 325 mg, 1, tablet, By Mouth, Daily, # 30 tablet, Refills 5, Tot. Refills 5, Maintenance, 04/24/20 11:06:00 EST, [id number], Partial fill upon patient requestif the prescription is for a schedule II opioid sudhir... Start Date: 04/24/20 Stop Date: 10/21/20 Status: Ordered Genvoya oral tablet 1 tablet, By Mouth, Daily, with food, # 30 tablet, 2 Refills, Maintenance, 03/16/20 9:00:00 EDT, Tablet, [facility], 1 tablet By Mouth Daily,x30 days,Instr:with food, 168, cm, 03/16/20 8:08:00 EDT, Height, 71.6, kg, 02/11/20 4:57:00 E... Start Date: 03/16/20 Stop Date: 06/14/20 Status: Ordered influenza virus vaccine, inactivated adjuvanted preservative-free quadrivalent intramuscular susp 0.5 mL, Intramuscular, Once, # 0.5 mL, 0 Refills, Soft Stop, 03/16/20 8:57:00 EDT, Suspension, [facility] 0.5 mL Intramuscular Once, 168, cm, 03/16/20 8:08:00 EDT, Height, 71.6, kg, 02/11/20 4:57:00 EDT, Dry Weight Start Date: 03/16/20 Status: Ordered lisinopril 20 mg oral tablet 20 mg, 1, tablet, By Mouth, Daily, # 30 tablet, Refills 5, Tot. Refills 5, Maintenance, 03/16/20 9:46:00 EDT, Route to Pharmacy Electronically, [facility], Please buble pack, 168, cm, [...]
--- OUTSIDE RECORDS SUMMARY | 2023-11-18 06:43 | XMS_ITS | Continuity of Care Document ---
Author Organization [facility] Address [address] [place] [address]- Care Team Providers Care Online Merchandising Coordinator Name Role Phone Cornelius REDDY, Shala Kuo Primary Care Physician [facility] Date[facility]s): 01/01/21 - 01/31/21 [facility] [address] [place], [place] [email or web address] Attending Physician: Jairo Ochoa Admitting Physician: AdmJairo [...] 5 Refills, Maintenance, 01/25/21 10:04:00 EDT, Tablet, [facility], Partial fill upon patient request if the prescription is for a schedule II opioid drug., 1 tablet By Mouth Daily, 167.6, cm, 09... Start Date: 01/25/21 Status: Ordered Bactrim DS 800 mg-160 mg oral tablet 1 tablet, By Mouth, Every 24 hours, # 30 tablet, 5 Refills, Maintenance, 01/11/21 10:10:00 EDT, Tablet, [facility], Partial fill upon patient [...] 1,120 mL, 1 Refills, Maintenance,12/19/20 23:29:00 EDT, [facility]/pharmacy #[id number], replaced tablets by suspension, 166, cm, 12/19/20 9:44:00 EDT, Height, 66.9, kg, 12/12/20 19:05:00 EDT, Dry... Start Date: 12/19/20 Stop Date: 02/13/21 Status: Ordered darunavir 800 mg oral tablet 1 tablet = 800 mg, By Mouth, Daily, # 30 tablet, 5 Refills, Maintenance, 01/25/21 10:06:00 EDT, Tablet, [facility], Partial fill upon patient request if the prescription is for a schedule II opioid drug., 167.6, cm, 01/23/21 18:14:00... Start Date: 01/25/21 Status: Ordered ferrous sulfate 325 mg oral enteric coated tablet 325 mg, 1, tablet, By Mouth, Daily, # 30 tablet, Refills 1, Tot. Refills 1, Maintenance, 01/06/21 18:35:00 EDT, Route to Pharmacy Electronically, [facility], Partial fill upon patient request if the prescription is for a schedule II o... Start Date: 01/06/21 Status: Ordered Genvoya oral tablet 1 tablet, By Mouth, Daily, with food, # 30 tablet, 5 Refills, Maintenance, 01/25/21 9:51:00 EDT, Tablet, [facility], Partial fill upon patient request if the prescription is for a schedule II opioid drug., 1 tablet By Mouth Daily,Inst... Start Date: 01/25/21 Status: Ordered Genvoya oral tablet 1 tablet, By Mouth, 2 times a day, with food, # 30 tablet, 0 Refills, Maintenance, 01/11/21 10:09:00 EDT, Tablet, [facility], Partial fill upon patient request if the prescription isfor a schedule II opioid drug., 166, cm, 01/11/21 9... Start Date: 01/11/21 Status: Ordered lisinopril 10 mg oral tablet 10 mg, 1, tablet, By Mouth, Daily, # 30 tablet, Refills 1, Tot. Refills 1, Maintenance, 01/06/21 18:35:00 EDT, Route to Pharmacy Electronically, [facility], Partial fill upon patientrequest if the prescription is for a schedule II op... Start Date: 01/06/21 Stop Date: 02/05/21 Status: Ordered mirtazapine 15 mg oral tablet 0.5 tablet = 7.5 mg, By Mouth, Daily at bedtime, # 15 tablet, 4 Refills, Maintenance, 01/08/21 11:59:00 EDT, Tablet, [facility], Partial fill upon patient request [...] 10:56:00 EDT, 12/19/20 10:56:00 EDT, REC Powder, [facility]/pharmacy #[id number], Partial fill upon patient request... [...]
--- OUTSIDE RECORDS SUMMARY | 2023-11-18 06:43 | XMS_ITS | Continuity of Care Document ---
Author Organization [facility] Address [address] [place] [address]- Care Team Providers Care Cafeteria Director Name Role Phone Cornelius REDDY, Shala Kuo Primary Care Physician [facility] Date(s): 11/22/20 - 12/28/20 [facility] [address] [place], [place] [address] Attending Physician: Steve Awan MD Admitting Physician: [...] 1,120 mL, 1 Refills, Maintenance,12/19/20 23:29:00 EDT, [facility]/pharmacy #[id number], replaced tablets by suspension, 166, cm, 12/19/20 9:44:00 EDT, Height, 66.9, kg, 12/12/20 19:05:00 EDT, Dry... Start Date: 12/19/20 Stop Date: 02/13/21 Status: Ordered ferrous sulfate 325 mg oral enteric coated tablet 325 mg, 1, tablet, By Mouth, Daily, # 90 tablet, Refills 1, Tot. Refills 1, Maintenance, 12/19/20 10:55:00 EDT, Route to Pharmacy Electronically, [facility]/pharmacy #[id number], Partial fill upon patient requestif the prescription is for a schedule II opioid sudhir... Start Date: 12/19/20 Status: Ordered lisinopril 10 mg oral tablet 10 mg, 1, tablet, By Mouth, Daily, # 30 tablet, Refills 0, Tot. Refills 0, Maintenance, 12/15/20 10:44:00 EDT, Route to Pharmacy Electronically, [facility], Partial fill upon patient request if the prescription is for a schedule II opioi... Start Date: 12/15/20 Stop Date: 01/14/21 Status: Ordered mirtazapine 15 mg oral tablet 0.5 tablet = 7.5 mg, By Mouth, Daily at bedtime, # 15 tablet, 0 Refills, Maintenance, 12/15/20 10:44:00 EDT, Tablet, [facility], Partial fill upon patient request if [...] 10:56:00 EDT, 12/19/20 10:56:00 EDT, REC Powder, [facility]/pharmacy #[id number], Partial fill upon patient request... Start Date: 12/19/20 Stop Date: 12/16/21 Status: Ordered sulfamethoxazole-trimethoprim 800 mg-160 mg oral tablet = 160 mg, By Mouth, Daily, for 30 days, # 30 tablet, 0 Refills, Acute 01/14/21 10:48:00 EDT, 12/15/20 10:48:00 EDT, Tablet, [facility], Partial fill upon patient [...] 12/15/20 10:46:00 EDT, Route to Pharmacy Electronically, [facility], Partial fill upon patient request if the prescript... Start Date: 12/15/20 Stop Date: 12/29/20 Status: Ordered valganciclovir 450 mg oral tablet 900 mg, 2, tablet, By Mouth, 2 times a day, for 30 days, # 120 tablet, Refills 0, Tot. Refills 0, Acute 01/14/21 10:48:00 EDT, 12/15/20 10:48:00 EDT, Route to Pharmacy Electronically, [facility], Partial fill upon patient [...]
--- OUTSIDE RECORDS SUMMARY | 2023-11-18 06:43 | XMS_ITS | Continuity of Care Document ---
Author Organization [facility] Address [address] [place] [address]- Care Team Providers Care Personal Injury Paralegal Name Role Phone Timmy MERCER, Daphney Heard Primary Care Physician Encounter [facility] Date(s): 05/18/19 - 07/31/19 [facility] [address] [place] [address]- Attending Physician: Shala Shields MD Admitting Physician: [...] 1 Refills, Maintenance, 05/20/19 13:38:00 EST, Tablet, [facility]/pharmacy #[id number], 170, cm, 04/21/19 16:03:00 EST, [...] 2 Refills, Maintenance, 05/18/19 11:15:00 EST, Tablet, [facility], Please deliver, 1 tablet By Mouth [...] 05/18/19 11:13:00 EST, Route to Pharmacy Electronically, [facility], Please fill today, 170, cm, 04/21/19 [...] 04/21/19 16:44:15 EST, Route to Pharmacy Electronically, [id number], [facility], 170, cm, 04/21/19 16:03:00 EST, Height Start Date: 04/21/19 Status: Ordered Vitamin D 87619 iu oral capsule 50,000 International_Units, 1, capsule, By Mouth, Every week, # 5 capsule, Refills 2, Tot. Refills 2, Maintenance, 05/18/19 11:14:00 EST, Route to Pharmacy Electronically, [facility],170, cm, 04/21/19 16:03:00 EST, Height Start [...]
--- OUTSIDE RECORDS SUMMARY | 2023-11-18 06:43 | XMS_ITS | Continuity of Care Document ---
Author Organization [facility] Address [address] [place] [address]- Care Team Providers Care Cafeteria Associate Name Role Phone Shala Shields MD Primary Care Physician [facility] Date(s): 02/20/23 - 05/03/23 [facility] [address] [place] [id number] Attending Physician: Shala Shields MD Admitting [...] GIVEN DATED: 11/18/11 8Admin Note: VIS GIVEN [place]TH [place]ORE[place] 2011-04 9Admin Note: vis given vis date 12/26/2009 10Admin Note: Prevnar 11Admin Note: VIS GIVEN VIS DATE 03/26 Medications acetaminophen 325 mg oral tablet 650 mg, 2, tablet, By Mouth, 3 times a day, PRN, # 540 tablet, Refills 3, Tot. Refills 3, Maintenance, as needed for fever, 02/20/23 13:39:00 EDT, Route to Pharmacy Electronically, [facility], Partial fill upon patient request if the prescri... Start Date: 02/20/23 Status: Ordered Bactrim 400 mg-80 mg oral tablet 1 tablet, By Mouth, Daily, BUBBLE PACK, # 90 tablet, 1 Refills, Maintenance, 02/20/23 13:37:00 EDT,Tablet, [facility], Partial fill upon patient request if [...] mL, 11 Refills, Maintenance, 09/18/22 15:52:00 EDT, [facility], replaced tablets by suspension, 167.6, cm, 07/04/22 16:00:00 EST, Height, 69.3, kg, 02/02/21 13:00... Start Date: 09/18/22 Stop Date: 08/20/23 Status: Ordered Colace sodium 100 mg oral capsule 100 mg, 1, capsule, By Mouth, 2 times a day, PRN, # 60 capsule, Refills 11, Tot. Refills 11, Maintenance, for constipation, 02/20/23 13:39:00 EDT, Route to Pharmacy Electronically, [facility], Partial fill upon patient request if the prescri... Start Date: 02/20/23 Status: Ordered darunavir 800 mg oral tablet 1 tablet = 800 mg, By Mouth, Daily, with food, please get labs before refills; BUBBLE PACK, # 90 tablet, 1 Refills, Maintenance, 04/25/23 11:55:00 EST, Tablet, [facility], Partial fill upon patient request if the prescription is for a... Start Date: 04/25/23 Status: Ordered diclofenac 1% topical gel 1 application, Topically, 4 times a day, # 100 Gm, 11 Refills, Maintenance, 09/18/22 15:52:00 EDT, Gel, [facility], Partial fill upon patient request if the prescription is for a schedule II opioid drug., 167.6, cm, 07/04/22 16:00:00... Start Date: 09/18/22 Status: Ordered duloxetine 30 mg oral enteric coated capsule 1 capsule = 30 mg, By Mouth, Daily, start with duloxetine 30mg daily x 2 weeks then duloxetine 60mgdaily; BUBBLE PACK, # 14 capsule, 0 Refills, Maintenance, 02/20/23 13:46:00 EDT, [facility], Partial fill upon patient request if the prescri... Start Date: 02/20/23 Stop Date: 03/06/23 Status: Ordered duloxetine 60 mg oral enteric coated capsule 1 capsule = 60 mg, By Mouth, Daily, start with duloxetine 30mg daily x 2 weeks then duloxetine 60mgdaily; BUBBLE PACK, # 30 capsule, 4 Refills, Maintenance, 02/20/23 13:46:00 EDT, EC Capsule, [facility], Partial fill upon patient request if... Start Date: 02/20/23 Status: Ordered ferrous sulfate 325 mg oral enteric coated tablet 325 mg, 1, tablet, By Mouth, Every other day, BUBBLE PACK, # 45 tablet, Refills 3, Tot. Refills 3, Maintenance, 02/20/23 13:37:00 EDT, Route to Pharmacy Electronically, [facility], Partial fill upon patient request if the prescription is for... Start Date: 02/20/23 Status: Ordered Genvoya oral tablet 1 tablet, By Mouth, Daily, with food, please get labs before refills; BUBBLE PACK, # 90 tablet, 1 Refills, Maintenance, 04/25/23 11:55:00 EST, Tablet, [facility], Partial fill upon patient request if the prescription is for a schedule... Start Date: 04/25/23 Status: Ordered hydrochlorothiazide-olmesartan 25 mg-40 mg oral tablet 1 tablet, By Mouth, Daily, BUBBLE PACK, # 90 tablet, 3 Refills, Maintenance, 02/20/23 13:37:00 EDT,Tablet, [facility], d/c HCTZ/lisinopril, 1 tablet By Mouth Daily,Instr:BUBBLE PACK, 167.6, cm, 12/23/22 8:35:00 EDT, Height Start Date: 02/20/23 Status: Ordered Lidoderm 5% film 2 patch, Topically, Daily, remove patches after 12 hours; 2 patches to pain areas; can cut patches in half; do not excede 2 patches., # 60 patch, 4 Refills, Maintenance, 03/06/23 15:42:00 EDT, [facility]/pharmacy #[id number], Partial fill upon patient request if t... Start Date: 03/06/23 Stop Date: 08/03/23 Status: Ordered MetroGel 1% topical gel 1 application, Topically, Daily, PRN facial rash, # 60 Gm, 11 Refills, Maintenance, 12/23/22 8:40:00 EDT, Gel, [facility], Partial fill upon patient request if the prescription is for a schedule II opioid drug., 1 application Topicall... Start Date: 12/23/22 Status: Ordered MiraLax oral powder for reconstitution = 17 Gm, By Mouth, Daily, PRN Constipation, dissolve in water before taking, # 527 Gm, 11 Refills, Maintenance, 02/20/23 13:39:00 EDT, REC Powder, [facility], Partial fill upon patient request if the prescription is for a schedule II opioid... Start Date: 02/20/23 Status: Ordered [facility] Rx Refills 0, Maintenance, Calcium/Mg/ Zinc [...] Refills, Soft Stop, 12/23/22 8:46:00 EDT, Powder, [facility], Partial fill upon patient request if the prescription is for a schedule II opioid drug., 0.5 mL Int... Start Date: 12/23/22 Status: Ordered Thera oral tablet 1 tablet, By Mouth, Daily, BUBBLE PACK, # 90 tablet, 3 Refills, Maintenance, 02/20/23 13:37:00 EDT,Tablet, [facility], Partial fill upon patient request if [...] OA, left Confirmed Active *Catalina Diaz Nurse Clinical-[facility] [phone] Confirmed Active Mild recurrent major depression Confirmed [...] Care Nurse Name: Shala Shields MD Position: [facility] Physician - Primary Care Member Role: PCP Address: Address: [address] [place] [address] [place] [address]- Name: Kassi Wang RN Position: S RN Member Role: Primary Care Nurse Name: Isabell David RN Position: [facility] SN RN Member Role: Primary Care Nurse Care Team Related Persons Name: REYES OSHEA Address: [address] [place] [id number] Name: SHANIKA ZAVALA Address: home [address] [place] [address]
--- OUTSIDE RECORDS SUMMARY | 2023-11-18 06:43 | XMS_ITS | Continuity of Care Document ---
Author Organization [facility] Address [address] [place] [address]- Care Team Providers Care Electro Winning Operator Name Role Phone Timmy MERCER, Daphney Heard Primary Care Physician En[place] [facility] Date(s): 06/22/19 - 08/05/19 [facility] [address] [place] [address]- Attending Physician: Shala Shields MD Admitting Physician: [...] 2 Refills, Maintenance, 05/18/19 11:15:00 EST, Tablet, [facility] Please deliver, 170, cm, 04/21/19 16:03:00 EST, Height Start Date: 05/18/19 Stop Date: 08/16/19 Status: Ordered doxepin 25 mg oral capsule 3 capsule = 75 mg, By Mouth, Daily at bedtime, Please fill today, # 90 capsule, 5 Refills, Maintenance, 05/18/19 11:13:00 EST, Capsule, [facility] 170, cm, 04/21/19 16:03:00 EST, Height Start Date: 05/18/19 Stop Date: 11/14/19 Status: Ordered ferrous gluconate 324 mg (37.5 mg elemental iron) oral tablet 1 tablet = 324 mg, By Mouth, 2 times a day, # 60 tablet, 1 Refills, Maintenance, 05/20/19 13:38:00 EST, Tablet, [facility]/pharmacy #[id number], 170, cm, 04/21/19 16:03:00 EST, Height [...] 2 Refills, Maintenance, 05/18/19 11:15:00 EST, Tablet, [facility], Please deliver, 1 tablet By Mouth [...] 05/18/19 11:13:00 EST, Route to Pharmacy Electronically, [facility], Please fill today, 170, cm, 04/21/19 [...] 04/21/19 16:44:15 EST, Route to Pharmacy Electronically, [id number], [facility], 170, cm, 04/21/19 16:03:00 EST, Height Start Date: 04/21/19 Status: Ordered Vitamin D 14482 iu oral capsule 50,000 International_Units, 1, capsule, By Mouth, Every week, # 5 capsule, Refills 2, Tot. Refills 2, Maintenance, 05/18/19 11:14:00 EST, Route to Pharmacy Electronically, [facility],170, cm, 04/21/19 16:03:00 EST, Height Start [...]
--- OUTSIDE RECORDS SUMMARY | 2023-11-18 06:43 | XMS_ITS | Continuity of Care Document ---
Author Organization [facility] Address [address], [address] [place] [address]- Care Team Providers Care Generator Mechanic Name Role Phone Maisha Lin DO Primary Care Physician Encounter [facility] Date(s): 04/12/20 - 07/15/20 [facility] [address], [address] [place], [place] [address] Attending Physician: Margareth Tafoya MD Admitting Physician: Margareth Tafoya MD Referring Physician: Diandra Garcia MD Allergies, Adverse Reactions, Alerts Substance Reaction [...] 11/18/11 8Admin Note: VIS GIVEN [place]IZ[place] 2011-04 9Admin Note: vis given vis date 12/26/2009 10Admin Note: Prevnar 11Admin Note: VIS GIVEN VIS DATE 03/26 Medications Bactrim DS 800 mg-160 mg oral tablet 1 tablet, By Mouth, Daily, for 30 days, # 30 tablet, 6 Refills, Acute 10/12/20 9:47:00 EDT, 03/16/20 9:47:00 EDT, Tablet, [facility], 1 tablet By Mouth Daily,x30 days, 168, cm, 03/16/20 8:08:00 EDT, Height, 71.6, kg, 02/11/20 4:57:00... Start Date: 03/16/20 Stop Date: 10/12/20 Status: Ordered darunavir 800 mg oral tablet 1 tablet = 800 mg, By Mouth, Daily, # 30 tablet, 2 Refills, Maintenance, 06/08/20 10:47:00 EST, Tablet, [facility], 168, cm, 04/19/20 15:17:00 EST, Height, 71.6, kg, 02/11/20 4:57:00EDT, Dry Weight Start Date: 06/08/20 Stop Date: 09/06/20 Status: Ordered docusate sodium 100 mg oral capsule 100 mg, 1, capsule, By Mouth, 2 times a day, # 28 capsule, Refills 3, Tot. Refills 3, Maintenance, 03/16/20 9:41:00 EDT, Route to Pharmacy Electronically, [facility], 168, cm, 03/16/20 8:08:00 EDT, Height, 71.6, kg, 02/11/20 4:57:00 E... Start Date: 03/16/20 Stop Date: 05/11/20 Status: Ordered doxepin 25 mg oral capsule 3 capsule = 75 mg, By Mouth, Daily at bedtime, Please fill today, # 90 capsule, 5 Refills, Maintenance, 03/16/20 9:49:00 EDT, Capsule, [facility], 168, cm, 03/16/20 8:08:00 EDT, Height, 71.6, kg, 02/11/20 4:57:00 EDT, Dry Weight Start Date: 03/16/20 Stop Date: 09/12/20 Status: Ordered ferrous sulfate 325 mg oral enteric coated tablet 325 mg, 1, tablet, By Mouth, Daily, # 30 tablet, Refills 5, Tot. Refills 5, Maintenance, 04/24/20 11:06:00 EST, Route to Pharmacy Electronically, [facility]/pharmacy #[id number], Partial fill upon patient requestif the prescription is for a schedule II opioid sudhir... Start Date: 04/24/20 Stop Date: 10/21/20 Status: Ordered Genvoya oral tablet 1 tablet, By Mouth, Daily, with food, # 30 tablet, 2 Refills, Maintenance, 06/08/20 10:47:00 EST, Tablet, [facility], 1 tablet By Mouth Daily,x30 days,Instr:with food, 168, cm, 04/19/20 15:17:00 EST, Height, 71.6, kg, 02/11/20 4:57:00... Start Date: 06/08/20 Stop Date: 09/06/20 Status: Ordered influenza virus vaccine, inactivated adjuvanted preservative-free quadrivalent intramuscular susp 0.5 mL, Intramuscular, Once, # 0.5 mL, 0 Refills, Soft Stop, 03/16/20 8:57:00 EDT, Suspension, [facility] 0.5 mL Intramuscular Once, 168, cm, 03/16/20 8:08:00 EDT, Height, 71.6, kg, 02/11/20 4:57:00 EDT, Dry Weight Start Date: 03/16/20 Status: Ordered lisinopril 20 mg oral tablet 20 mg, 1, tablet, By Mouth, Daily, # 30 tablet, Refills 5, Tot. Refills 5, Maintenance, 06/08/20 10:46:00 EST, Route to Pharmacy Electronically, [facility], Please buble pack, 168, cm, [...]
--- OUTSIDE RECORDS SUMMARY | 2023-11-18 06:43 | XMS_ITS | Continuity of Care Document ---
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 Start Date: 03/16/20 Stop Date: 10/12/20 Status: Ordered darunavir 800 mg oral tablet 1 tablet = 800 mg, By Mouth, Daily, # 30 tablet, 2 Refills, Maintenance, 03/16/20 9:01:00 EDT, Tablet, [facility], 168, cm, 03/16/20 8:08:00 EDT, Height, 71.6, kg, 02/11/20 4:57:00 EDT, Dry Weight Start Date: 03/16/20 Stop Date: 06/14/20 Status: Ordered docusate sodium 100 mg oral capsule 100 mg, 1, capsule, By Mouth, 2 times a day, # 28 capsule, Refills 3, Tot. Refills 3, Maintenance, 03/16/20 9:41:00 EDT, Route to Pharmacy Electronically, [facility], 168, cm, 03/16/20 8:08:00 EDT, Height, 71.6, kg, 02/11/20 4:57:00 E... Start Date: 03/16/20 Stop Date: 05/11/20 Status: Ordered doxepin 25 mg oral capsule 3 capsule = 75 mg, By Mouth, Daily at bedtime, Please fill today, # 90 capsule, 5 Refills, Maintenance, 03/16/20 9:49:00 EDT, Capsule, [facility], 168, cm, 03/16/20 8:08:00 EDT, Height, 71.6, kg, 02/11/20 4:57:00 EDT, Dry Weight Start Date: 03/16/20 Stop Date: 09/12/20 Status: Ordered ergocalciferol 20864 iu oral capsule 50,000 International_Units, 1, capsule, By Mouth, Every week, # 5 capsule, Refills 1, Tot. Refills 1, Maintenance, 03/16/20 9:45:00 EDT, Route to Pharmacy Electronically, [facility],168, cm, 03/16/20 8:08:00 EDT, Height, 71.6, kg, 09... Start Date: 03/16/20 Stop Date: 05/15/20 Status: Ordered ferrous gluconate 324 mg (37.5 mg elemental iron) oral tablet 1 tablet = 324 mg, By Mouth, 2 times a day, # 60 tablet, 1 Refills, Maintenance, 03/16/20 9:45:00 EDT, Tablet, [facility], 168, cm, 03/16/20 8:08:00 EDT, Height, 71.6, kg, 02/11/20 4:57:00 EDT, Dry Weight Start Date: 03/16/20 Stop Date: 05/15/20 Status: Ordered Genvoya oral tablet 1 tablet, By Mouth, Daily, with food, # 30 tablet, 2 Refills, Maintenance, 03/16/20 9:00:00 EDT, Tablet, [facility], 1 tablet By Mouth Daily,x30 days,Instr:with food, 168, cm, 03/16/20 8:08:00 EDT, Height, 71.6, kg, 02/11/20 4:57:00 E... Start Date: 03/16/20 Stop Date: 06/14/20 Status: Ordered influenza virus vaccine, inactivated adjuvanted preservative-free quadrivalent intramuscular susp 0.5 mL, Intramuscular, Once, # 0.5 mL, 0 Refills, Soft Stop, 03/16/20 8:57:00 EDT, Suspension, [facility] 0.5 mL Intramuscular Once, 168, cm, 03/16/20 8:08:00 EDT, Height, 71.6, kg, 02/11/20 4:57:00 EDT, Dry Weight Start Date: 03/16/20 Status: Ordered lisinopril 20 mg oral tablet 20 mg, 1, tablet, By Mouth, Daily, # 30 tablet, Refills 5, Tot. Refills 5, Maintenance, 03/16/20 9:46:00 EDT, Route to Pharmacy Electronically, [facility], Please buble pack, 168, cm, 03/16/20 8:08:00 EDT, Height, 71.6, kg, 02/11/20 4... Start Date: 03/16/20 Stop Date: 09/12/20 Status: Ordered Norvasc 5 mg oral tablet 5 mg, 1, tablet, By Mouth, Daily, # 30 tablet, Refills 5, Tot. Refills 5, Maintenance, 03/16/20 9:40:00 EDT, Route to Pharmacy Electronically, [facility], Please bubble pack, 168, cm, 03/16/20 8:08:00 EDT, Height, 71.6, kg, 02/11/20 4... Start Date: 03/16/20 Stop Date: 09/12/20 Status: Ordered valganciclovir 450 mg oral tablet 900 mg, 2, tablet, By Mouth, Daily, for 14 days, # 28 tablet, Refills 0, Tot. Refills 0, Acute 03/30/20 9:02:00 EST, 03/16/20 9:02:00 EDT, Route to Pharmacy Electronically, [facility], 168, cm, 03/16/20 8:08:00 [...]
--- OUTSIDE RECORDS SUMMARY | 2023-11-18 06:43 | XMS_ITS | Continuity of Care Document ---
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 Start Date: 03/16/20 Stop Date: 10/12/20 Status: Ordered darunavir 800 mg oral tablet 1 tablet = 800 mg, By Mouth, Daily, # 90 tablet, 3 Refills, Maintenance, 09/06/20 10:47:00 EDT, Tablet, [facility]/pharmacy #[id number], 168, cm, 04/19/20 15:17:00 EST, Height, 71.6, kg, 02/11/20 4:57:00 EDT, DryWeight Start Date: 09/06/20 Stop Date: 09/01/21 Status: Ordered docusate sodium 100 mg oral capsule 100 mg, 1, capsule, By Mouth, 2 times a day, # 28 capsule, Refills 3, Tot. Refills 3, Maintenance, 03/16/20 9:41:00 EDT, Route to Pharmacy Electronically, [facility], 168, cm, 03/16/20 8:08:00 EDT, Height, 71.6, kg, 02/11/20 4:57:00 E... Start Date: 03/16/20 Stop Date: 05/11/20 Status: Ordered doxepin 25 mg oral capsule 3 capsule = 75 mg, By Mouth, Daily at bedtime, Please fill today, # 90 capsule, 5 Refills, Maintenance, 03/16/20 9:49:00 EDT, Capsule, [facility], 168, cm, 03/16/20 8:08:00 EDT, Height, 71.6, kg, 02/11/20 4:57:00 EDT, Dry Weight Start Date: 03/16/20 Stop Date: 09/12/20 Status: Ordered ferrous sulfate 325 mg oral enteric coated tablet 325 mg, 1, tablet, By Mouth, Daily, # 30 tablet, Refills 5, Tot. Refills 5, Maintenance, 04/24/20 11:06:00 EST, [id number] Partial fill upon patient requestif the prescription is for a schedule II opioid sudhir... Start Date: 04/24/20 Stop Date: 10/21/20 Status: Ordered Genvoya oral tablet 1 tablet, By Mouth, Daily, with food, # 90 tablet, 3 Refills, Maintenance, 09/06/20 10:47:00 EDT, Tablet, [id number], 1 tablet By Mouth Daily,x90 days,Instr:with food, 168, cm, 04/19/20 15:17:00 EST, Height, 71.6, kg, 02/11/20 4:57:00 EDT, Dry... Start Date: 09/06/20 Stop Date: 09/01/21 Status: Ordered influenza virus vaccine, inactivated adjuvanted preservative-free quadrivalent intramuscular susp 0.5 mL, Intramuscular, Once, # 0.5 mL, 0 Refills, Soft Stop, 03/16/20 8:57:00 EDT, [facility].5 [facility] Intramuscular Once, 168, cm, 03/16/20 8:08:00 EDT, Height, 71.6, kg, 02/11/20 4:57:00 EDT, Dry Weight Start Date: 03/16/20 Status: Ordered lisinopril 20 mg oral tablet 20 mg, 1, tablet, By Mouth, Daily, # 30 tablet, Refills 5, Tot. Refills 5, Maintenance, 06/08/20 10:46:00 EST, Route to Pharmacy Electronically, [facility], Jocelin davis pack, 168, cm, 04/19/20 15:17:00 EST, Height, [...]
--- OUTSIDE RECORDS SUMMARY | 2023-11-18 06:43 | XMS_ITS | Continuity of Care Document ---
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 Immunizations Given and Recorded Vaccine Date Status Refusal Reason SARS-CoV-2 (COVID-19) mRNA-0470 vaccine 04/04/22 G iven influenza virus vaccine, [...] GIVEN DATED: 11/18/11 8Admin Note: VIS GIVEN [place] 2011-04 9Admin Note: vis given vis date 12/26/2009 10Admin Note: Prevnar 11Admin Note: VIS GIVEN VIS DATE 03/26 Medications acetaminophen 325 mg oral tablet 650 mg, 2, tablet, By Mouth, 3 times a day, PRN, # 540 tablet, Refills 3, Tot. Refills 3, Maintenance, as needed for fever, 02/20/23 13:39:00 EDT, Route to Pharmacy Electronically, [facility], Partial fill upon patient request if the prescri... Start Date: 02/20/23 Status: Ordered Blood Pressure Monitor See Instructions, # 1 Unknown, Maintenance, Check BP 3x Weekly and Document Dx: HTN (I10); Lisinopril 10mg 1x Daily Duration: Lifetime *Please Note Pt Does Not Posess Medical Knowledge To Use BP Cuff/Stethoscope, 12/26/20 15:31:00 EDT, Supply Start Date: 12/26/20 Status: Ordered buprenorphine 5 mcg/hr transdermal film, extended release 1 patch, Topically, Every week, d/c oxycodone; Mass Pat checked opioid agreement, # 4 patch, 0 Refills, Maintenance, 10/16/23 12:29:00 EDT, [facility], Partial fill upon patient request if the prescription is for a schedule II opioid d... Start Date: 10/16/23 Status: Ordered buprenorphine-naloxone 2 mg-0.5 mg sublingual film 1 film, Sublingual, 3 times a day, dissolve under the tongue; can increase dose as needed for pain;MassPat checked, opioid agreement for chronic pain; discontinue buprenorphine patch, # 84 film, 0 Refills, Maintenance, 10/21/23 12:22:00 EDT, Film, CV... Start Date: 10/21/23 Stop Date: 11/18/23 Status: Ordered Colace sodium 100 mg oral capsule 100 mg, 1, capsule, By Mouth, 2 times a day, PRN, # 60 capsule, Refills 11, Tot. Refills 11, Maintenance, for constipation, 02/20/23 13:39:00 EDT, Route to Pharmacy Electronically, [facility], Partial fill upon patient request if the prescri... Start Date: 02/20/23 Status: Ordered darunavir 800 mg oral tablet 1 tablet = 800 mg, By Mouth, Daily, with food, please get labs before refills; BUBBLE PACK, # 90 tablet, 1 Refills, Maintenance, 09/29/23 14:29:00 EDT, Tablet, [facility] [...] Refills, Maintenance, 07/03/23 19:03:00 EST, EC Capsule, [facility], Partial fill upon patient request if the... Start Date: 07/03/23 Status: Ordered ferrous sulfate 325 mg oral enteric coated tablet 325 mg, 1, tablet, By Mouth, Daily, # 90 tablet, Refills 3, Tot. Refills 3, Maintenance, 08/26/23 9:38:00 EDT, Route to Pharmacy Electronically, [facility], Partial fill upon patientrequest if the [...] 09/24/23 14:21:00 EDT, Route to Pharmacy Electronically, [facility],... Start Date: 09/24/23 Status: Ordered Genvoya oral tablet 1 tablet, By Mouth, Daily, with food, please get labs before refills; BUBBLE PACK, # 90 tablet, 1 Refills, Maintenance, 09/29/23 14:29:00 EDT, Tablet, [facility], Partial fill upon patient request if the prescription is for a schedule... Start Date: 09/29/23 Status: Ordered hydrochlorothiazide-olmesartan 25 mg-40 mg oral tablet 0.5 tablet, By Mouth, Daily, # 15 tablet, 4 Refills, Maintenance, 08/07/23 15:23:00 EDT, Tablet, [facility]/pharmacy #[id number], decrease dose, 0.5 tablet By Mouth Daily, 167.6, cm, 08/05/23 9:50:00 EDT, Height Start Date: 08/07/23 Status: Ordered hydrOXYzine pamoate 25 mg oral capsule 1 capsule = 25 mg, By Mouth, 4 times a day, PRN for anxiety, # 120 capsule, 0 Refills, Maintenance,09/11/23 19:24:00 EDT, Capsule, [facility]/pharmacy #[id number], Partial fill upon patient request if the prescription is for a schedule II opioid drug., 167.6, cm,... Start Date: 09/11/23 Status: Ordered Lidoderm 5% film 2 patch, Topically, Daily, remove patches after 12 hours; 2 patches to pain areas; can cut patches in half; do not excede 2 patches., # 60 patch, 4 Refills, Maintenance, 03/06/23 15:42:00 EDT, [facility]/pharmacy #[id number], Partial fill upon patient request if t... Start Date: 03/06/23 Stop Date: 08/03/23 Status: Ordered meloxicam 7.5 mg oral tablet 1 tablet = 7.5 mg, By Mouth, Daily, [place] with acetaminophen, # 14 tablet, 0 Refills, Maintenance, 08/25/23 16:16:00 EDT, Tablet, [facility], Partial fill upon patient request if theprescription is for a schedule II opioid drug., 167... Start Date: 08/25/23 Stop Date: 09/08/23 Status: Ordered Misc Rx Refills 0, Maintenance, Calcium/Mg/ Zinc 1 tablet daily, 01/23/21 17:47:00 EDT, Supply Start Date: 01/23/21 Status: Ordered nalOXONE 4 mg/0.1 mL nasal spray 1 sprays = 4 mg, Naris, Left, Once, # 2 each, 11 Refills, Soft Stop, 10/16/23 17:07:00 EDT, [facility]/pharmacy #[id number], Partial fill upon patient request if the prescription is for a schedule II opioid drug., 167.6, cm, 09/11/23 17:27:00 EDT, Height Start Date: 10/16/23 Status: Ordered oxyCODONE 10 mg oral tablet 1 tablet = 10 mg, By Mouth, Every 6 hours, Mass Pat checked, opioid agreement, chronic pain; incdrease dose on 09/25/2023, # 112 tablet, 0 Refills, Maintenance, 10/08/23 13:38:00 EDT, Tablet, [facility]/pharmacy #[id number], Partial fill upon [...] Refills, Maintenance, 07/03/23 18:52:00 EST, REC Powder, [facility], Partial fill upon patient request if the prescription is for a schedule II opioid drug., 17 Gm... Start Date: 07/03/23 Stop Date: 10/01/23 Status: Ordered Thera oral tablet 1 tablet, By Mouth, Daily, # 90 tablet, 3 Refills, Maintenance, 08/26/23 9:38:00 EDT, Tablet, [facility], Partial fill upon patient request if the prescription is for a schedule II opioid drug., 1 tablet By Mouth Daily, 167.6, cm, 04... Start Date: 08/26/23 Status: Ordered Vitamin D3 1000 intl units oral capsule 1 capsule = 25 mcg, By Mouth, Daily, # 90 capsule, 3 Refills, Maintenance, 07/03/23 19:05:00 EST, Capsule, [facility], Partial fill upon [...] pubis OA, left Confirmed Active *Catalina Diaz [employer] [phone] Confirmed Active Depression, Mild recurrent major Confirmed Active Rosacea Confirmed Active Urinary incontinence Confirmed Active Social History Social History Type Response Tobacco Use: Rolls weed in l eaf tabacco . Sex Patient Care team information Care Team Personnel Name: Jaky Nicole RN Position: [facility] RN Member Role: Primary Care Nurse Name: Rhea Brooks RN Position: [facility] RN Member Role: Primary Care Nurse Name: Shala Shields MD Position: [facility] Physician - Primary Care Member Role: PCP Address: Address: [address] [place] [address] [place] [address]- Name: Kassi Wang RN Position: [facility] RN Member Role: Primary Care Nurse Name: Isabell David RN Position: [facility] ERNESTO Office Staff Member Role: Primary Care Nurse Care Team Related Persons Name: REYES OSHEA Address: home [address] [address] Name: SHANIKA ZAVALA Address: home [address] [place] [address]
--- OUTSIDE RECORDS SUMMARY | 2023-11-18 06:43 | XMS_ITS | Continuity of Care Document ---
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 Start Date: 02/08/21 Status: Ordered darunavir 800 mg oral tablet 1 tablet = 800 mg, By Mouth, Daily, # 30 tablet, 5 Refills, Maintenance, 01/25/21 10:06:00 EDT, Tablet, [facility], Partial fill upon patient request if the prescription is for a schedule II opioid drug., 167.6, cm, 01/23/21 18:14:00... Start Date: 01/25/21 Status: Ordered ferrous sulfate 325 mg oral enteric coated tablet 325 mg, 1, tablet, By Mouth, Daily, # 30 tablet, Refills 11, Tot. Refills 11, Maintenance, 03/02/2112:59:00 EDT, Route to Pharmacy Electronically, [facility], Partial fill upon patient request if the prescription is for a schedule II... Start Date: 03/02/21 Status: Ordered Genvoya oral tablet 1 tablet, By Mouth, Daily, with food, # 30 tablet, 5 Refills, Maintenance, 01/25/21 9:51:00 EDT, Tablet, [facility], Partial fill upon patient request if the prescription is for a schedule II opioid drug., 1 tablet By Mouth Daily,Inst... Start Date: 01/25/21 Status: Ordered hydrochlorothiazide-lisinopril 25 mg-20 mg oral tablet 1 tablet, By Mouth, Daily, # 30 tablet, 4 Refills, Maintenance, 06/28/21 16:48:00 EST, Tablet, [facility], d/c lisinopril 40 mg - change to combo med, 1 tablet By Mouth Daily, 167.6,cm, 02/19/21 16:01:00 EDT, Height, 69.3, kg, ... Start Date: 06/28/21 Status: Ordered MiraLax oral powder for reconstitution = 17 Gm, By Mouth, Daily, PRN Constipation, dissolve in water before taking, # 527 Gm, 11 Refills, Maintenance, 02/08/21 20:01:00 EDT, REC Powder, [facility]/pharmacy #[id number], Partial fill upon patient request if [...] 10:56:00 EDT, 12/19/20 10:56:00 EDT, REC Powder, [facility]/pharmacy #[id number], Partial fill upon patient request... Start [...] 02/02/21 14:41:00 EDT, Route to Pharmacy Electronically, [facility]/pharmacy #[id number], Partial fill upon patient request if the [...]
--- OUTSIDE RECORDS SUMMARY | 2023-11-18 06:43 | XMS_ITS | Continuity of Care Document ---
Author Organization [facility] y Address [address] [place] [address]- Care Team Providers Care Hedis Specialist Name Role Phone Maisha Lin DO Primary Care Physician [place] [facility] [place] - 10/07/20 [facility] [address], [place] [address] Attending Physician: Jairo Ochoa [...] GIVEN DATED: 11/18/11 8Admin Note: VIS GIVEN COLOMBIAN 2010- 9Admin Note: vis given vis date 12/26/2009 10Admin Note: Prevnar 11Admin Note: VIS GIVEN VIS DATE 03/26 Medications Bactrim DS 800 mg-160 mg oral tablet 1 tablet, By Mouth, Daily, for 30 days, # 30 tablet, 6 Refills, Acute 10/12/20 9:47:00 EDT, 03/16/20 9:47:00 EDT, Tablet, [facility], 1 tablet By Mouth Daily,x30 days, 168, cm, 03/16/20 8:08:00 EDT, Height, 71.6, kg, 02/11/20 4:57:00... Start Date: 03/16/20 Stop Date: 10/12/20 Status: Ordered darunavir 800 mg oral tablet 1 tablet = 800 mg, By Mouth, Daily, # 90 tablet, 3 Refills, Maintenance, 09/06/20 10:47:00 EDT, Tablet, [facility]/pharmacy #[id number], 168, cm, 04/19/20 15:17:00 EST, Height, 71.6, kg, 02/11/20 4:57:00 EDT, DryWeight Start Date: 09/06/20 Stop Date: 09/01/21 Status: Ordered docusate sodium 100 mg oral capsule 100 mg, 1, capsule, By Mouth, 2 times a day, # 28 capsule, Refills 3, Tot. Refills 3, Maintenance, 03/16/20 9:41:00 EDT, Route to Pharmacy Electronically, [facility], 168, cm, 03/16/20 8:08:00 EDT, Height, 71.6, kg, 02/11/20 4:57:00 E... Start Date: 03/16/20 Stop Date: 05/11/20 Status: Ordered doxepin 25 mg oral capsule 3 capsule = 75 mg, By Mouth, Daily at bedtime, Please fill today, # 90 capsule, 5 Refills, Maintenance, 03/16/20 9:49:00 EDT, Capsule, [facility], 168, cm, 03/16/20 8:08:00 EDT, Height, 71.6, kg, 02/11/20 4:57:00 EDT, Dry Weight Start Date: 03/16/20 Stop Date: 09/12/20 Status: Ordered ferrous sulfate 325 mg oral enteric coated tablet 325 mg, 1, tablet, By Mouth, Daily, # 30 tablet, Refills 5, Tot. Refills 5, Maintenance, 04/24/20 11:06:00 EST, [id number] Partial fill upon patient requestif the prescription is for a schedule II opioid sudhir... Start Date: 04/24/20 Stop Date: 10/21/20 Status: Ordered Genvoya oral tablet 1 tablet, By Mouth, Daily, with food, # 90 tablet, 3 Refills, Maintenance, 09/06/20 10:47:00 EDT, Tablet, [id number], 1 tablet By Mouth Daily,x90 days,Instr:with food, 168, cm, 04/19/20 15:17:00 EST, Height, 71.6, kg, 02/11/20 4:57:00 EDT, Dry... Start Date: 09/06/20 Stop Date: 09/01/21 Status: Ordered influenza virus vaccine, inactivated adjuvanted preservative-free quadrivalent intramuscular susp 0.5 mL, Intramuscular, Once, # 0.5 mL, 0 Refills, Soft Stop, 03/16/20 8:57:00 EDT, [facility].5 [facility] Intramuscular Once, 168, cm, 03/16/20 8:08:00 EDT, Height, 71.6, kg, 02/11/20 4:57:00 EDT, Dry Weight Start Date: 03/16/20 Status: Ordered lisinopril 20 mg oral tablet 20 mg, 1, tablet, By Mouth, Daily, # 30 tablet, Refills 5, Tot. Refills 5, Maintenance, 06/08/20 10:46:00 EST, Route to Pharmacy Electronically, [facility], Jocelin aguilarle pack, 168, cm, 04/19/20 15:17:00 EST, Height, [...]
--- OUTSIDE RECORDS SUMMARY | 2023-11-18 06:43 | XMS_ITS | Continuity of Care Document ---
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 Immunizations Given and Recorded Vaccine Date Status Refusal Reason SARS-CoV-2 (COVID-19) mRNA-2832 vaccine 04/04/22 G iven influenza virus vaccine, [...] GIVEN DATED: 11/18/11 8Admin Note: VIS GIVEN ROMANIAN 2011-04 9Admin Note: vis given vis date 12/26/2009 10Admin Note: Prevnar 11Admin Note: VIS GIVEN VIS DATE 03/26 Medications acetaminophen 325 mg oral tablet 650 mg, 2, tablet, By Mouth, 3 times a day, PRN, # 540 tablet, Refills 3, Tot. Refills 3, Maintenance, as needed for fever, 02/20/23 13:39:00 EDT, Route to Pharmacy Electronically, [facility], Partial fill upon patient request if the prescri... Start Date: 02/20/23 Status: Ordered Bactrim 400 mg-80 mg oral tablet 1 tablet, By Mouth, Daily, BUBBLE PACK, # 90 tablet, 1 Refills, Maintenance, 02/20/23 13:37:00 EDT,Tablet, [facility], Partial fill upon patient request if [...] 1 Refills, Maintenance, 04/25/23 11:55:00 EST, Tablet, [facility], Partial fill upon patient request if the prescription is for a... Start Date: 04/25/23 Status: Ordered diclofenac 1% topical gel 1 application, Topically, 4 times a day, # 100 Gm, 11 Refills, Maintenance, 09/18/22 15:52:00 EDT, Gel, [facility], Partial fill upon patient [...] Refills, Maintenance, 07/03/23 19:03:00 EST, EC Capsule, [facility], Partial fill upon patient request if the... Start Date: 07/03/23 Status: Ordered ferrous sulfate 325 mg oral enteric coated tablet 325 mg, 1, tablet, By Mouth, Every other day, BUBBLE PACK, # 45 tablet, Refills 3, Tot. Refills 3, Maintenance, 02/20/23 13:37:00 EDT, Route to Pharmacy Electronically, [facility], Partial fill upon patient request if the prescription is for... Start Date: 02/20/23 Status: Ordered gabapentin 100 mg oral capsule 100 mg, 1, capsule, By Mouth, Daily at bedtime, PRN, # 30 capsule, Refills 4, Tot. Refills 4, Maintenance, Anxiety, 08/05/23 10:19:00 EDT, Route to Pharmacy Electronically, [facility], Partial fill upon patient request if the prescrip... Start Date: 08/05/23 Stop Date: 08/12/23 Status: Ordered Genvoya oral tablet 1 tablet, By Mouth, Daily, with food, please get labs before refills; BUBBLE PACK, # 90 tablet, 1 Refills, Maintenance, 04/25/23 11:55:00 EST, Tablet, [facility], Partial fill upon patient request if the prescription is for a schedule... Start Date: 04/25/23 Status: Ordered hydrochlorothiazide-olmesartan 25 mg-40 mg oral tablet 0.5 tablet, By Mouth, Daily, # 15 tablet, 4 Refills, Maintenance, 08/07/23 15:23:00 EDT, Tablet, [facility]/pharmacy #[id number], decrease dose, 0.5 tablet By Mouth Daily, 167.6, cm, 08/05/23 9:50:00 EDT, Height Start Date: 08/07/23 Status: Ordered Lidoderm 5% film 2 patch, Topically, Daily, remove patches after 12 hours; 2 patches to pain areas; can cut patches in half; do not excede 2 patches., # 60 patch, 4 Refills, Maintenance, 03/06/23 15:42:00 EDT, [facility]/pharmacy #[id number], Partial fill upon patient request if t... Start Date: 03/06/23 Stop Date: 08/03/23 Status: Ordered [facility] Rx Refills 0, Maintenance, Calcium/Mg/ Zinc 1 tablet daily, 01/23/21 17:47:00 EDT, Supply Start Date: 01/23/21 Status: Ordered naltrexone 50 mg oral tablet 1 tablet = 50 mg, By Mouth, Daily, # 30 tablet, 4 Refills, Maintenance, 07/28/23 16:46:00 EDT, Tablet, [facility]/pharmacy #[id number], Partial fill upon [...] 07/03/23 18:52:00 EST, REC Powder, [facility], Partial fill upon patient request if the prescription is for a schedule II opioid drug., 17 Gm... Start Date: 07/03/23 Stop Date: 10/01/23 Status: Ordered Thera oral tablet 1 tablet, By Mouth, Daily, BUBBLE PACK, # 90 tablet, 3 Refills, Maintenance, 02/20/23 13:37:00 EDT,Tablet, [facility], Partial fill upon patient request if the prescription is for a schedule II opioid drug., 1 tablet By Mouth Daily,Instr:BU... Start Date: 02/20/23 Status: Ordered Vitamin D3 1000 intl units oral capsule 1 capsule = 25 mcg, By Mouth, Daily, # 90 capsule, 3 Refills, Maintenance, 07/03/23 19:05:00 EST, Capsule, [facility], Partial fill upon patient [...] pubis OA, left Confirmed Active *Catalina Diaz Feed Research Aide-[facility] [phone] Confirmed Active Mild recurrent major depression Confirmed Active Rosacea Confirmed Active Urinary incontinence Confirmed Active Social History Social History Type Response Tobacco Use: Rolls weed in l eaf tabacco . Sex Patient Care team information Care Team Personnel Name: Jaky Nicole RN Position: [facility] RN Member Role: Primary Care Nurse Name: Rhea Brooks Position: [facility] RN Member Role: Primary Care Nurse Name: Shala Shields MD Position: [facility] Physician - Primary Care Member Role: PCP Address: Address: [address] [place] [address] [place] [address]- [place] Name: Kassi Wang RN Position: [facility] RN Member Role: Primary Care Nurse Name: Isabell David RN Position: [facility] Staff Member Role: Primary Care Nurse Care Team Related Persons Name: REYES OSHEA Address: home [address] [address] Name: ZAVALA SHANIKA Address: home [address] [place] [address]
--- OUTSIDE RECORDS SUMMARY | 2023-11-18 06:43 | XMS_ITS | Continuity of Care Document ---
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 Name Role Phone Cornelius REDDY, Shala Kuo Primary Care Physician [facility] Date[facility]s): 12/25/20 - 01/24/21 [facility] [address] [place], [place] [address] Allergies, Adverse Reactions, Alerts Substance Reaction [...] GIVEN DATED: 11/18/11 8Admin Note: VIS GIVEN PORTUGUESE 2010- 9Admin Note: vis given vis date 12/26/2009 10Admin Note: Prevnar 11Admin Note: VIS GIVEN VIS DATE 03/26 Medications Bactrim DS 800 mg-160 mg oral tablet 1 tablet, By Mouth, Every 24 hours, # 30 tablet, 5 Refills, Maintenance, 01/11/21 10:10:00 EDT, Tablet, [facility], Partial fill upon patient [...] 1,120 mL, 1 Refills, Maintenance,12/19/20 23:29:00 EDT, [facility]/pharmacy #[id number], replaced tablets by suspension, 166, cm, 12/19/20 9:44:00 EDT, Height, 66.9, kg, 12/12/20 19:05:00 EDT, Dry... Start Date: 12/19/20 Stop Date: 02/13/21 Status: Ordered cobicistat-darunavir 150 mg-800 mg oral tablet 1 tablet, By Mouth, 2 times a day, # 30 tablet, 0 Refills, Maintenance, 01/11/21 10:09:00 EDT, Tablet, [facility], Partial fill upon patient request if the prescription is for a schedule II opioid drug., 166, cm, 01/11/21 9:09:00 EDT,... Start Date: 01/11/21 Status: Ordered ferrous sulfate 325 mg oral enteric coated tablet 325 mg, 1, tablet, By Mouth, Daily, # 30 tablet, Refills 1, Tot. Refills 1, Maintenance, 01/06/21 18:35:00 EDT, Route to Pharmacy Electronically, [facility], Partial fill upon patient request if the prescription is for a schedule II o... Start Date: 01/06/21 Status: Ordered Genvoya oral tablet 1 tablet, By Mouth, 2 times a day, with food, # 30 tablet, 0 Refills, Maintenance, 01/11/21 10:09:00 EDT, Tablet, [facility], Partial fill upon patient request if the prescription isfor a schedule II opioid drug., 166, cm, 01/11/21 9... Start Date: 01/11/21 Status: Ordered lisinopril 10 mg oral tablet 10 mg, 1, tablet, By Mouth, Daily, # 30 tablet, Refills 1, Tot. Refills 1, Maintenance, 01/06/21 18:35:00 EDT, Route to Pharmacy Electronically, [facility], Partial fill upon patientrequest if the prescription is for a schedule II op... Start Date: 01/06/21 Stop Date: 02/05/21 Status: Ordered mirtazapine 15 mg oral tablet 0.5 tablet = 7.5 mg, By Mouth, Daily at bedtime, # 15 tablet, 4 Refills, Maintenance, 01/08/21 11:59:00 EDT, Tablet, [facility], Partial fill upon patient request if the prescriptionis for a schedule II opioid drug., 166, cm, ... Start Date: 01/08/21 Stop Date: 06/07/21 Status: [facility], Maintenance, Calcium/Mg/ [...] 10:56:00 EDT, 12/19/20 10:56:00 EDT, REC Powder, [id number], Partial fill upon patient request... Start Date: [...]
--- OUTSIDE RECORDS SUMMARY | 2023-11-18 06:43 | XMS_ITS | Continuity of Care Document ---
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 Refills 3, Maintenance, as needed for fever, 09/18/22 15:52:00 EDT, [facility] Partial fill upon patient request if the... Start Date: 09/18/22 Status: Ordered Bactrim 400 mg-80 mg oral tablet 1 tablet, By Mouth, Daily, for 30 days, # 30 tablet, 2 Refills, Acute 03/12/23 9:28:00 EDT, 12/12/22 9:28:00 EDT, Tablet[facility] fill upon patient request [...] mL, 11 Refills, Maintenance, 09/18/22 15:52:00 EDT, [facility], replaced tablets by suspension, 167.6, cm, 07/04/22 16:00:00 EST, Height, 69.3, kg, 02/02/21 13:00... Start Date: 09/18/22 Stop Date: 08/20/23 Status: Ordered Colace sodium 100 mg oral capsule 100 mg, 1, capsule, By Mouth, 2 times a day, PRN, # 60 capsule, Refills 11, Tot. Refills 11, Maintenance, for constipation, 09/18/22 15:52:00 EDT, Route to Pharmacy Electronically, [facility], Partial fill upon patient request if the... Start Date: 09/18/22 Status: Ordered darunavir 800 mg oral tablet 1 tablet = 800 mg, By Mouth, Daily, with food, please get labs before refills, # 90 tablet, 3 Refills, Maintenance, 11/25/22 9:47:00 EDT, Tablet, [facility], Partial [...] 09/18/22 15:52:00 EDT, Route to Pharmacy Electronically, [facility], Partial fill upon patient request if the prescription is for a hubert... Start Date: 09/18/22 Status: Ordered Genvoya oral tablet 1 tablet, By Mouth, Daily, with food, please get labs before refills, # 90 tablet, 3 Refills, Maintenance, 11/25/22 10:45:00 EDT, Tablet, [facility], Partial fill upon patient request if the prescription is for a schedule II opioid dr... Start Date: 11/25/22 Status: Ordered hydrochlorothiazide-olmesartan 25 mg-40 mg oral tablet 1 tablet, By Mouth, Daily, # 90 tablet, 3 Refills, Maintenance, 09/18/22 15:50:00 EDT, Tablet, [facility], d/c HCTZ/lisinopril, 1 tablet By Mouth [...] Refills, Maintenance, 09/18/22 15:52:00 EDT, REC Powder, [facility], Partial [...] Refills, Soft Stop, 12/23/22 8:46:00 EDT, Powder, [facility], Partial fill upon patient request if the prescription is for a schedule II opioid drug., 0.5 mL Int... Start Date: 12/23/22 Status: Ordered Thera oral tablet 1 tablet, By Mouth, Daily, # 90 tablet, 3 Refills, Maintenance, 09/18/22 15:52:00 EDT, Tablet, [facility], Partial fill upon [...] pubis OA, left Confirmed Active *Catalina Diaz Control Technician-[facility] [phone] Confirmed Active Mild recurrent major depression Confirmed [...] Personnel Name: Jaky Nicole RN Position: [facility] RN Member Role: Primary Care Nurse Name: Rhea Heard Position: S RN Member Role: Primary Care Nurse Name: Shala Shields MD Position: [facility] Physician - Primary Care Member Role: PCP Address: Address: [address] [place] [address] [place] [address]- Name: Kassi Wang RN Position: S RN Member Role: Primary Care Nurse Name: Isabell David RN Position: [facility] SN RN Member Role: Primary Care Nurse Name: Tamy Lamb RN Position: S RN Member Role: Primary Care Nurse Care Team Related Persons Name: CHERELLE OSHEAIA Address: home [address] [address] Name: SALLY SHANIKA Address: home [address] [place] [address]
--- OUTSIDE RECORDS SUMMARY | 2023-11-18 06:43 | XMS_ITS | Continuity of Care Document ---
Author Organization [facility] Address [address] [place] [address]- Care Team Providers Care Shaper Operator Name Role Phone Shala Shields MD Primary Care Physician [facility] Date[facility]s): 01/29/22 - 02/28/22 [facility] [address] [place], [place] [address] Allergies, Adverse Reactions, Alerts Substance Reaction [...] 01/28/22 14:53:00 EDT, Route to Pharmacy Electronically, [facility], Partial fill upon patient request [...] 11 Refills, Maintenance, 02/02/21 17:36:00 EDT, [facility], replaced tablets by suspension, 167.6, cm, 02/02/21 13:00:00 EDT, Height, 69.3, kg, 02/02/21 13:00... Start Date: 02/02/21 Stop Date: 01/04/22 Status: Ordered Colace sodium 100 mg oral capsule 100 mg, 1, capsule, By Mouth, 2 times a day, PRN, # 60 capsule, Refills 11, Tot. Refills 11, Maintenance, for constipation, 02/08/21 20:01:00 EDT, Route to Pharmacy Electronically, [facility]/pharmacy #[id number], Partial fill upon patient request if the prescript... Start Date: 02/08/21 Status: Ordered darunavir 800 mg oral tablet 1 tablet = 800 mg, By Mouth, Daily, with food, please get labs before refills, # 90 tablet, 3 Refills, Maintenance, 11/28/21 12:11:00 EDT, Tablet, [facility], Partial fill upon patient request if the prescription is for a schedule II... Start Date: 11/28/21 Status: Ordered diclofenac 1% topical gel 1 application, Topically, 4 times a day, # 100 Gm, 11 Refills, Maintenance, 12/06/21 19:06:00 EDT, Gel, [facility]/pharmacy #[id number], Partial fill upon patient request if the prescription is for a schedule II opioid drug., 167.6, cm, 12/06/21 18:07:00 EDT, Heig... Start Date: 12/06/21 Status: Ordered duloxetine 30 mg oral enteric coated capsule 1 capsule = 30 mg, By Mouth, Daily, start with duloxetine 30mg daily x 2 weeks then duloxetine 60mgdaily, # 14 capsule, 0 Refills, Maintenance, 12/06/21 19:06:00 EDT, [facility]/pharmacy #[id number], Partial fill upon patient request [...] 12/06/21 19:06:00 EDT, Route to Pharmacy Electronically, [facility]/pharmacy #[id number], Partial fill upon patient request if the prescription is for a schedule I... Start Date: 12/06/21 Status: Ordered Genvoya oral tablet 1 tablet, By Mouth, Daily, with food, please get labs before refills, # 90 tablet, 3 Refills, Maintenance, 11/28/21 12:10:00 EDT, Tablet, [facility], Partial fill upon patient request if the prescription is for a schedule II opioid . Start Date: 11/28/21 Status: Ordered hydrochlorothiazide-lisinopril 25 mg-20 mg oral tablet 1 tablet, By Mouth, Daily, please get labs before refills, # 30 tablet, 11 Refills, Maintenance, 01/28/22 14:55:00 EDT, Tablet, [facility], d/c lisinopril 40 mg - change to combo med, 1 tablet By Mouth Daily,Instr:please get labs befo... Start Date: 01/28/22 Status: Ordered metroNIDAZOLE 0.75% topical gel 1 applicator, Vaginally, Daily, # 70 Gm, 0 Refills, Maintenance, 11/20/21 14:08:00 EDT, [facility], Partial fill upon patient request if the prescription is for a schedule II opioid drug., 1 applicator Vaginally Daily,x5 days, 167.6,... Start Date: 11/20/21 Stop Date: 11/25/21 Status: Ordered MiraLax oral powder for reconstitution = 17 Gm, By Mouth, Daily, PRN Constipation, dissolve in water before taking, # 527 Gm, 11 Refills, Maintenance, 02/08/21 20:01:00 EDT, REC Powder, [facility]/pharmacy #[id number], Partial fill upon patient request [...] 11 Refills, Maintenance, 03/09/21 16:13:00 EDT, Tablet, [facility], Partial fill upon [...] Iron deficiency anemia Confirmed Active *Catalina Diaz Museum Preparator-[facility] [phone] Confirmed Active Mild recurrent major depression Confirmed Active Urinary incontinence Confirmed Active 1EGD 07/2010 - likely apthous ulcers with very morbid 2 weeks of weight loss and requiring IV fluids Social History Social History Type Response Smoking Status Never smoker; Tobacc o user in household: No entered on: 01/26/15 Sex Patient Care team information Personnel Name: Cornelius REDDY, Sahla Kuo Address: Address: [address] [place] [address], C-Level [facility] [place], [place] [address]
--- OUTSIDE RECORDS SUMMARY | 2023-11-18 06:43 | XMS_ITS | Continuity of Care Document ---
Author Organization [facility] Adult Medicine Address [address] [place] [address]- Care Team Providers Care Apple Sorter Name Role Phone Timmy MERCER, Daphney Heard Primary Care Physician [facility] Date(s): 07/23/19 - 08/02/19 [facility] Adult Medicine [address] [place] [address]- [facility] Attending Physician: Jairo Ochoa Admitting Physician: AdmtrJairo [...] GIVEN DATED: 11/18/11 8Admin Note: VIS GIVEN AZERI 2011-04 9Admin Note: vis given vis date [...] 2 Refills, Maintenance, 05/18/19 11:15:00 EST, Tablet, [facility] Please deliver, 170, cm, 04/21/19 16:03:00 EST, Height Start Date: 05/18/19 Stop Date: 08/16/19 Status: Ordered doxepin 25 mg oral capsule 3 capsule = 75 mg, By Mouth, Daily at bedtime, Please fill today, # 90 capsule, 5 Refills, Maintenance, 05/18/19 11:13:00 EST, Capsule, [facility] 170, cm, 04/21/19 16:03:00 EST, Height Start Date: 05/18/19 Stop Date: 11/14/19 Status: Ordered ferrous gluconate 324 mg (37.5 mg elemental iron) oral tablet 1 tablet = 324 mg, By Mouth, 2 times a day, # 60 tablet, 1 Refills, Maintenance, 05/20/19 13:38:00 EST, Tablet, [facility]/pharmacy #[id number], 170, cm, 04/21/19 16:03:00 EST, Height [...] 04/21/19 16:44:15 EST, Route to Pharmacy Electronically, [id number], [facility], 170, cm, 04/21/19 16:03:00 EST, Height Start Date: 04/21/19 Status: Ordered Vitamin D 77476 iu oral capsule 50,000 International_Units, 1, capsule, [...]
--- OUTSIDE RECORDS SUMMARY | 2023-11-18 06:43 | XMS_ITS | Continuity of Care Document ---
Author Organization [facility] Address [address] [place] [address]- Care Team Providers Care Flight Tower Dispatcher Name Role Phone Shala Shields MD Primary Care Physician Encounter [facility] [place] Date(s): 08/07/21 - 10/13/21 [facility] [address] [place] [address]- Attending Physician: Shala Shields MD Admitting Physician: [...] vac 02/15/21 Given pneumococcal 13-valent vaccine 10 1/3/18 Given tetanus/diphtheria/pertussis, acel(Tdap) 11 03/20/10 Given 1Admin [...] 5 Refills, Maintenance, 01/25/21 10:04:00 EDT, Tablet, [facility], Partial fill upon patient request if [...] mL, 11 Refills, Maintenance, 02/02/21 17:36:00 EDT, [facility], replaced tablets by suspension, 167.6, cm, 02/02/21 13:00:00 EDT, Height, 69.3, kg, 02/02/21 13:00... Start Date: 02/02/21 Stop Date: 01/04/22 Status: Ordered Colace sodium 100 mg oral capsule 100 mg, 1, capsule, By Mouth, 2 times a day, PRN, # 60 capsule, Refills 11, Tot. Refills 11, Maintenance, for constipation, 02/08/21 20:01:00 EDT, Route to Pharmacy Electronically, [facility]/pharmacy #[id number], Partial fill upon patient request if the prescript... Start Date: 02/08/21 Status: Ordered darunavir 800 mg oral tablet 1 tablet = 800 mg, By Mouth, Daily, with food, pls get labs done for more refills, orders in!, # 30tablet, 0 Refills, Maintenance, 09/13/21 15:33:00 EDT, Tablet, [facility], Partialfill upon patient request if the prescription is fo... Start Date: 09/13/21 Status: Ordered ferrous sulfate 325 mg oral enteric coated tablet 325 mg, 1, tablet, By Mouth, Daily, # 30 tablet, Refills 11, Tot. Refills 11, Maintenance, 03/02/2112:59:00 EDT, Route to Pharmacy Electronically, [facility], Partial fill upon patient request if the prescription is for a schedule II... Start Date: 03/02/21 Status: Ordered Genvoya oral tablet 1 tablet, By Mouth, Daily, with food, pls get labs done for more refills, orders in!, # 30 tablet, 0 Refills, Maintenance, 09/13/21 15:33:00 EDT, Tablet, [facility], Partial fill upon patient request if the prescription is for a sched... Start Date: 09/13/21 Status: Ordered hydrochlorothiazide-lisinopril 25 mg-20 mg oral tablet 1 tablet, By Mouth, Daily, # 30 tablet, 4 Refills, Maintenance, 06/28/21 16:48:00 EST, Tablet, [facility], d/c lisinopril 40 mg - change to combo med, 1 tablet By Mouth Daily, 167.6,cm, 02/19/21 16:01:00 EDT, Height, 69.3, kg, ... Start Date: 06/28/21 Status: Ordered MiraLax oral powder for reconstitution = 17 Gm, By Mouth, Daily, PRN Constipation, dissolve in water before taking, # 527 Gm, 11 Refills, Maintenance, 02/08/21 20:01:00 EDT, REC Powder, [facility]/pharmacy #[id number], Partial fill upon patient request if the prescription is for a schedule II opioid dr... Start Date: 02/08/21 Status: Ordered mirtazapine 15 mg oral tablet 1 tablet = 15 mg, By Mouth, Daily at bedtime, # 30 tablet, 4 Refills, Maintenance, 02/19/21 16:53:00 EDT, Tablet, [facility], increase dose, 167.6, cm, 02/19/21 16:01:00 EDT, Height,69.3, kg, 02/02/21 13:00:00 EDT, Dry Weight Start Date: 02/19/21 Stop Date: 07/19/21 Status: [facility] Refills 0, Maintenance, Calcium/Mg/ Zinc 1 [...] EDT, 12/19/20 10:56:00 EDT, REC Powder, [facility]/pharmacy #[id number], Partial fill upon patient request... Start Date: 12/19/20 Stop Date: 12/16/21 Status: Ordered Thera oral tablet 1 tablet, By Mouth, Daily, # 30 tablet, 11 Refills, Maintenance, 03/09/21 16:13:00 EDT, Tablet, [facility], Partial fill upon patient [...] 14:41:00 EDT, Route to Pharmacy Electronically, [facility]/pharmacy #[id number], Partial fill upon patient request if the [...]
--- OUTSIDE RECORDS SUMMARY | 2023-11-18 06:43 | XMS_ITS | Continuity of Care Document ---
Author Organization [facility] Address [address] [place] [address]- Care Team Providers Care Landscape Gardener Name Role Phone Shala Shields MD Primary Care Physician Encounter [facility] Date(s): 12/14/21 - 02/06/22 [facility] [address] [place] [address]- Encounter Diagnosis Fibromyalgia(Final) - Discharge Disposition: A-D/C Home Attending Physician: Not on Staff, Attending MD Admitting Physician: Not on Staff, Admitting MD Referring Physician: Not on Staff, Referring [...] GIVEN DATED: 11/18/11 8Admin Note: VIS GIVEN ESTONIAN 2011-04 9Admin Note: vis given vis date [...] mL, 11 Refills, Maintenance, 02/02/21 17:36:00 EDT, [facility], replaced tablets by suspension, 167.6, cm, 02/02/21 13:00:00 EDT, Height, 69.3, kg, 02/02/21 13:00... Start Date: 02/02/21 Stop Date: 01/04/22 Status: Ordered Colace sodium 100 mg oral capsule 100 mg, 1, capsule, By Mouth, 2 times a day, PRN, # 60 capsule, Refills 11, Tot. Refills 11, Maintenance, for constipation, 02/08/21 20:01:00 EDT, Route to Pharmacy Electronically, [facility]/pharmacy #[id number], Partial fill upon patient request if the prescript... Start Date: 02/08/21 Status: Ordered darunavir 800 mg oral tablet 1 tablet = 800 mg, By Mouth, Daily, with food, please get labs before refills, # 90 tablet, 3 Refills, Maintenance, 11/28/21 12:11:00 EDT, Tablet, [facility], Partial fill upon patient request if the prescription is for a schedule II... Start Date: 11/28/21 Status: Ordered diclofenac 1% topical gel 1 application, Topically, 4 times a day, # 100 Gm, 11 Refills, Maintenance, 12/06/21 19:06:00 EDT, Gel, [facility]/pharmacy #[id number], Partial fill upon patient [...] capsule, 0 Refills, Maintenance, 12/06/21 19:06:00 EDT, [facility]/pharmacy #[id number], Partial fill upon patient request if the prescription is for a... Start Date: 12/06/21 Stop Date: 12/20/21 Status: Ordered duloxetine 60 mg oral enteric coated capsule 1 capsule = 60 mg, By Mouth, Daily, start with duloxetine 30mg daily x 2 weeks then duloxetine 60mgdaily, # 30 capsule, 4 Refills, Maintenance, 12/06/21 19:06:00 EDT, EC Capsule, [facility]/pharmacy #[id number],Partial fill upon patient request if the prescripti... Start Date: 12/06/21 Status: Ordered ferrous sulfate 325 mg oral enteric coated tablet 325 mg, 1, tablet, By Mouth, Every other day, # 30 tablet, Refills 11, Tot. Refills 11, Maintenance, 12/06/21 19:06:00 EDT, Route to Pharmacy Electronically, [facility]/pharmacy #[id number], Partial fill upon patient request if the prescription is for a schedule I... Start Date: 12/06/21 Status: Ordered Genvoya oral tablet 1 tablet, By Mouth, Daily, with food, please get labs before refills, # 90 tablet, 3 Refills, Maintenance, 11/28/21 12:10:00 EDT, Tablet, [facility], Partial fill upon patient request if the prescription is for a schedule II opioid Start Date: 11/28/21 Status: Ordered hydrochlorothiazide-lisinopril 25 mg-20 mg oral tablet 1 tablet, By Mouth, Daily, please get labs before refills, # 30 tablet, 11 Refills, Maintenance, 01/28/22 14:55:00 EDT, Tablet, [facility], d/c lisinopril 40 mg - change to combo med, 1 tablet By Mouth Daily,Instr:please get labs befo... Start Date: 01/28/22 Status: Ordered metroNIDAZOLE 0.75% topical gel 1 applicator, Vaginally, Daily, # 70 Gm, 0 Refills, Maintenance, 11/20/21 14:08:00 EDT, [facility], Partial fill upon patient request if the prescription is for a schedule II opioid drug., 1 applicator Vaginally Daily,x5 days, 167.6,... Start Date: 11/20/21 Stop Date: 11/25/21 Status: Ordered MiraLax oral powder for reconstitution = 17 Gm, By Mouth, Daily, PRN Constipation, dissolve in water before taking, # 527 Gm, 11 Refills, Maintenance, 02/08/21 20:01:00 EDT, REC Powder, [facility]/pharmacy #[id number], Partial fill upon patient [...] 11 Refills, Maintenance, 03/09/21 16:13:00 EDT, Tablet, [facility] [...] Active Hypertension(Confirmed) Active Iron deficiency anemia(Confirmed) Active *Catalina Diaz [facility] [phone](Confirmed) Active Mild recurrent major depression(Confirmed) Active Urinary incontinence(Confirmed) Active 1EGD 07/2010 - likely apthous ulcers with very morbid 2 weeks of weight loss and requiring IV fluids Social History Social History Type Response Smoking Status Never smoker; Tobacc o user in household: No entered on: 01/26/15 Sex Care Team Personnel Name: Cornelius REDDY, Shala Kuo Address: [address] [place] [address], -Level [facility] [address]
--- OUTSIDE RECORDS SUMMARY | 2023-11-18 06:43 | XMS_ITS | Continuity of Care Document ---
Author Organization [facility] Address [address] [place] [address]- Care Team Providers Care Evp Marketing Name Role Phone Shala Shields MD Primary Care Physician Encounter [facility] [place] Date(s): 09/11/21 - 10/13/21 [facility] [address] [place] [address]- Encounter Diagnosis HIV disease(Discharge Diagnosis) - 09/13/21 Attending Physician: Shala Shields MD Admitting Physician: [...] 5 Refills, Maintenance, 01/25/21 10:04:00 EDT, Tablet, [facility], Partial fill upon [...] mL, 11 Refills, Maintenance, 02/02/21 17:36:00 EDT, [facility], replaced tablets by suspension, 167.6, cm, 02/02/21 13:00:00 EDT, Height, 69.3, kg, 02/02/21 13:00... Start Date: 02/02/21 Stop Date: 01/04/22 Status: Ordered Colace sodium 100 mg oral capsule 100 mg, 1, capsule, By Mouth, 2 times a day, PRN, # 60 capsule, Refills 11, Tot. Refills 11, Maintenance, for constipation, 02/08/21 20:01:00 EDT, Route to Pharmacy Electronically, [facility]/pharmacy #[id number], Partial fill upon patient request if the prescript... Start Date: 02/08/21 Status: Ordered darunavir 800 mg oral tablet 1 tablet = 800 mg, By Mouth, Daily, with food, pls get labs done for more refills, orders in!, # 30tablet, 0 Refills, Maintenance, 09/13/21 15:33:00 EDT, Tablet, [facility], Partialfill upon patient request if the prescription is fo... Start Date: 09/13/21 Status: Ordered ferrous sulfate 325 mg oral enteric coated tablet 325 mg, 1, tablet, By Mouth, Daily, # 30 tablet, Refills 11, Tot. Refills 11, Maintenance, 03/02/2112:59:00 EDT, Route to Pharmacy Electronically, [facility], Partial fill upon patient request if the prescription is for a schedule II... Start Date: 03/02/21 Status: Ordered Genvoya oral tablet 1 tablet, By Mouth, Daily, with food, pls get labs done for more refills, orders in!, # 30 tablet, 0 Refills, Maintenance, 09/13/21 15:33:00 EDT, Tablet, [facility], Partial fill upon patient request if the prescription is for a sched... Start Date: 09/13/21 Status: Ordered hydrochlorothiazide-lisinopril 25 mg-20 mg oral tablet 1 tablet, By Mouth, Daily, # 30 tablet, 4 Refills, Maintenance, 06/28/21 16:48:00 EST, Tablet, [facility], d/c lisinopril 40 mg - change to combo med, 1 tablet By Mouth Daily, 167.6,cm, 02/19/21 16:01:00 EDT, Height, 69.3, kg, ... Start Date: 06/28/21 Status: Ordered MiraLax oral powder for reconstitution = 17 Gm, By Mouth, Daily, PRN Constipation, dissolve in water before taking, # 527 Gm, 11 Refills, Maintenance, 02/08/21 20:01:00 EDT, REC Powder, [facility]/pharmacy #[id number], Partial fill upon patient request if the prescription is for a schedule II opioid dr... Start Date: 02/08/21 Status: Ordered mirtazapine 15 mg oral tablet 1 tablet = 15 mg, By Mouth, Daily at bedtime, # 30 tablet, 4 Refills, Maintenance, 02/19/21 16:53:00 EDT, Tablet, [facility], increase dose, 167.6, cm, [...] 10:56:00 EDT, 12/19/20 10:56:00 EDT, REC Powder, [facility]/pharmacy #[id number], Partial fill upon patient request... Start Date: 12/19/20 Stop Date: 12/16/21 Status: Ordered Thera oral tablet 1 tablet, By Mouth, Daily, # 30 tablet, 11 Refills, Maintenance, 03/09/21 16:13:00 EDT, Tablet, [facility], Partial fill upon [...] 02/02/21 14:41:00 EDT, Route to Pharmacy Electronically, [facility]/pharmacy #[id number], Partial fill upon patient request if the [...] Dates Health Status Clini shae Service Informant HIV disease Discharge Diagnosis 09/13/21 Social History Social History Type Response Smoking Status Never smoker; Tobacc o user in household: No entered on: 01/26/15 Sex
--- OUTSIDE RECORDS SUMMARY | 2023-11-18 06:43 | XMS_ITS | Continuity of Care Document ---
Author Organization [facility] Address [address] [place] [address]- Care Team Providers Care Inspector Eyeglass Name Role Phone Shala Shields MD Primary Care Physician Encounter [facility] Date(s): 01/02/23 - 03/29/23 [facility] [address] [place] [id number] Attending Physician: Shala Shields MD Admitting [...] GIVEN DATED: 11/18/11 8Admin Note: VIS GIVEN SOMALI 2011-04 9Admin Note: vis given vis date 12/26/2009 10Admin Note: Prevnar 11Admin Note: VIS GIVEN VIS DATE 03/26 Medications acetaminophen 325 mg oral tablet 650 mg, 2, tablet, By Mouth, 3 times a day, PRN, # 540 tablet, Refills 3, Tot. Refills 3, Maintenance, as needed for fever, 02/20/23 13:39:00 EDT, Route to Pharmacy Electronically, [facility], Partial fill upon patient request if the prescri... Start Date: 02/20/23 Status: Ordered Bactrim 400 mg-80 mg oral tablet 1 tablet, By Mouth, Daily, BUBBLE PACK, # 90 tablet, 1 Refills, Maintenance, 02/20/23 13:37:00 EDT,Tablet, [facility], Partial fill upon patient request if [...] mL, 11 Refills, Maintenance, 09/18/22 15:52:00 EDT, [facility], replaced tablets by suspension, 167.6, cm, 07/04/22 16:00:00 EST, Height, 69.3, kg, 02/02/21 13:00... Start Date: 09/18/22 Stop Date: 08/20/23 Status: Ordered Colace sodium 100 mg oral capsule 100 mg, 1, capsule, By Mouth, 2 times a day, PRN, # 60 capsule, Refills 11, Tot. Refills 11, Maintenance, for constipation, 02/20/23 13:39:00 EDT, Route to Pharmacy Electronically, [facility], Partial fill upon patient request if the prescri... Start Date: 02/20/23 Status: Ordered darunavir 800 mg oral tablet 1 tablet = 800 mg, By Mouth, Daily, with food, please get labs before refills; BUBBLE PACK, # 90 tablet, 1 Refills, Maintenance, 02/20/23 13:39:00 EDT, Tablet, [facility], Partial fill uponpatient request if the prescription is for a schedu... Start Date: 02/20/23 Status: Ordered diclofenac 1% topical gel 1 application, Topically, 4 times a day, # 100 Gm, 11 Refills, Maintenance, 09/18/22 15:52:00 EDT, Gel, [facility], Partial fill upon patient request [...] Refills, Maintenance, 02/20/23 13:46:00 EDT, EC Capsule, [facility], Partial fill upon patient request if... Start Date: 02/20/23 Status: Ordered ferrous sulfate 325 mg oral enteric coated tablet 325 mg, 1, tablet, By Mouth, Every other day, BUBBLE PACK, # 45 tablet, Refills 3, Tot. Refills 3, Maintenance, 02/20/23 13:37:00 EDT, Route to Pharmacy Electronically, [facility], Partial fill upon patient request if the prescription is for... Start Date: 02/20/23 Status: Ordered Genvoya oral tablet 1 tablet, By Mouth, Daily, with food, please get labs before refills; BUBBLE PACK, # 90 tablet, 1 Refills, Maintenance, 02/20/23 13:39:00 EDT, Tablet, [facility], Partial fill upon patient request if the prescription is for a schedule II opi... Start Date: 02/20/23 Status: Ordered hydrochlorothiazide-olmesartan 25 mg-40 mg oral tablet 1 tablet, By Mouth, Daily, BUBBLE PACK, # 90 tablet, 3 Refills, Maintenance, 02/20/23 13:37:00 EDT,Tablet, [facility], d/c HCTZ/lisinopril, 1 tablet By Mouth Daily,Instr:BUBBLE PACK, 167.6, cm, 12/23/22 8:35:00 EDT, Height Start Date: 02/20/23 Status: Ordered Lidoderm 5% film 2 patch, Topically, Daily, remove patches after 12 hours; 2 patches to pain areas; can cut patches in half; do not excede 2 patches., # 60 patch, 4 Refills, Maintenance, 03/06/23 15:42:00 EDT, [facility]/pharmacy #[id number], Partial fill upon patient request if t... Start Date: 03/06/23 Stop Date: 08/03/23 Status: Ordered MetroGel 1% topical gel 1 application, Topically, Daily, PRN facial rash, # 60 Gm, 11 Refills, Maintenance, 12/23/22 8:40:00 EDT, Gel, [facility], Partial fill upon patient request if the prescription is for a schedule II opioid drug., 1 application Topicall... Start Date: 12/23/22 Status: Ordered MiraLax oral powder for reconstitution = 17 Gm, By Mouth, Daily, PRN Constipation, dissolve in water before taking, # 527 Gm, 11 Refills, Maintenance, 02/20/23 13:39:00 EDT, REC Powder, [facility], Partial fill upon patient request if the prescription is for a schedule II opioid... Start Date: 02/20/23 Status: Ordered [facility] [...] Refills, Soft Stop, 12/23/22 8:46:00 EDT, Powder, [facility], Partial fill upon patient request if the prescription is for a schedule II opioid drug., 0.5 mL Int... Start Date: 12/23/22 Status: Ordered Thera oral tablet 1 tablet, By Mouth, Daily, BUBBLE PACK, # 90 tablet, 3 Refills, Maintenance, 02/20/23 13:37:00 EDT,Tablet, [facility], Partial fill upon patient request if [...] pubis OA, left Confirmed Active *Catalina Diaz Curriculum Assistant [facility] [phone] Confirmed Active Mild recurrent major depression Confirmed [...] Care Nurse Name: Shala Shields MD Position: [facility] Physician - Primary Care Member Role: PCP Address: Address: [address] [place] [address] [place] [address]- Name: Kassi Wang RN Position: S RN Member Role: Primary Care Nurse Name: Isabell David RN Position: [facility] SN RN Member Role: Primary Care Nurse Care Team Related Persons Name: REYES OSHEA Address: home [address] [place] [id number] Name: SHANIKA ZAVALA Address: home [address] [place] [address]
--- OUTSIDE RECORDS SUMMARY | 2023-11-18 06:43 | XMS_ITS | Continuity of Care Document ---
Author Organization [facility] Address [address] [place] [address]- Care Team Providers Care Bending Machine Operator Name Role Phone Cornelius REDDY, Shala Kuo Primary Care Physician [phone] [facility]): 05/[facility]/22 - 06/21/22 [facility] [address] [place] [id number] Allergies, Adverse Reactions, Alerts Substance Reaction Severity [...] mL, 11 Refills, Maintenance, 03/29/22 11:16:00 EST, [facility], replaced tablets by suspension, 167.6, cm, 03/05/22 9:57:00 EDT, Height, 69.3, kg, 02/02/21 13:00:... Start Date: 03/29/22 Stop Date: 02/28/23 Status: Ordered Colace sodium 100 mg oral capsule 100 mg, 1, capsule, By Mouth, 2 times a day, PRN, # 60 capsule, Refills 11, Tot. Refills 11, Maintenance, for constipation, 03/29/22 11:16:00 EST, Route to Pharmacy Electronically, [facility], Partial fill upon patient request if the... Start Date: 03/29/22 Status: Ordered darunavir 800 mg oral tablet 1 tablet = 800 mg, By Mouth, Daily, with food, please get labs before refills, # 90 tablet, 3 Refills, Maintenance, 11/28/21 12:11:00 EDT, Tablet, [facility], Partial fill upon patient request if the prescription is for a schedule II... Start Date: 11/28/21 Status: Ordered diclofenac 1% topical gel 1 application, Topically, 4 times a day, # 100 Gm, 11 Refills, Maintenance, 12/06/21 19:06:00 EDT, Gel, [facility]/pharmacy #[id number], Partial fill upon patient request if the prescription is for a schedule II opioid drug., 167.6, cm, 12/06/21 18:07:00 EDT, [place]... Start Date: 12/06/21 Status: Ordered duloxetine 60 mg oral enteric coated capsule 1 capsule = 60 mg, By Mouth, Daily, # 30 capsule, 11 Refills, Maintenance, 03/05/22 12:42:00 EDT, EC Capsule, [facility], Partial fill upon patient request if the prescription is fora schedule II opioid drug., 167.6, cm, 03/05/22 9:5... Start Date: 03/05/22 Status: Ordered ferrous sulfate 325 mg oral enteric coated tablet 325 mg, 1, tablet, By Mouth, Every other day, # 30 tablet, Refills 11, Tot. Refills 11, Maintenance, 12/06/21 19:06:00 EDT, Route to Pharmacy Electronically, [facility]/pharmacy #[id number], Partial fill upon patient request if the prescription is for a schedule I... Start Date: 12/06/21 Status: Ordered Genvoya oral tablet 1 tablet, By Mouth, Daily, with food, please get labs before refills, # 90 tablet, 3 Refills, Maintenance, 11/28/21 12:10:00 EDT, Tablet, [facility], Partial fill upon patient request if the prescription is for a schedule II opioid drShilo. Start Date: 11/28/21 Status: Ordered hydrochlorothiazide-olmesartan 25 mg-40 mg oral tablet 1 tablet, By Mouth, Daily, # 30 tablet, 4 Refills, Maintenance, 04/04/22 19:39:00 EST, Tablet, [facility], d/c HCTZ/lisinopril, 1 tablet By Mouth Daily, 167.6, cm, 04/04/22 19:29:00 EST, Height, 69.3, kg, 02/02/21 13:00:00 EDT, Dry We... Start Date: 04/04/22 Status: Ordered metroNIDAZOLE 0.75% topical gel 1 applicator, Vaginally, Daily, # 70 Gm, 0 Refills, Maintenance, 11/20/21 14:08:00 EDT, [facility], Partial fill upon patient request if the prescription is for a schedule II opioid drug., 1 applicator Vaginally Daily,x5 days, 167.6,... Start Date: 11/20/21 Stop Date: 11/25/21 Status: Ordered MiraLax oral powder for reconstitution = 17 Gm, By Mouth, Daily, PRN Constipation, dissolve in water before taking, # 527 Gm, 11 Refills, Maintenance, 03/29/22 11:16:00 EST, REC Powder, [facility], Partial fill upon patient request if the prescription is for a schedule II... Start Date: 03/29/22 Status: Ordered mirtazapine 15 mg oral tablet 1 tablet = 15 mg, By Mouth, Daily at bedtime, please get labs before refills, # 30 tablet, 11 Refills, Maintenance, 03/28/22 20:40:00 EST, Tablet, [facility], increase dose, 167.6, cm, [...] Refills, Soft Stop, 06/06/22 10:12:00 EST, [facility]der[facility] Partial fill upon patient request if the prescription is for a schedule II opioid drug., 0.5 mL Int... Start Date: 06/06/22 Status: Ordered Thera oral tablet 1 tablet, By Mouth, Daily, # 30 tablet, 11 Refills, Maintenance, 03/29/22 11:15:00 EST, Tablet, [facility], Partial fill upon patient request if the prescription is for a schedule IIopioid drug., 1 tablet By Mouth Daily, 167.6, cm, 1... Start Date: 03/29/22 Status: Ordered Wellbutrin XL 300 mg/24 hours oral tablet, extended release 1 tablet = 300 mg, By Mouth, Daily, # 30 tablet, 4 Refills, Maintenance, 04/04/22 19:36:00 EST, ER Tablet, [facility], Partial fill upon patient [...] Iron deficiency anemia Confirmed Active *Catalina Diaz Top Executive-[facility] [phone] Confirmed Active Mild recurrent major depression Confirmed [...] Care Nurse Name: Shala Shields MD Position: [facility] Primary Care Physician Member Role: PCP Address: Address: [address] [place] [address], -[facility] [place] [address]- Name: Kassi Wang RN Position: S RN Member Role: Primary Care Nurse Name: Isabell Davdi RN Position: [facility] SN RN Member Role: Primary Care Nurse Care Team Related Persons Name: REYES OSHEA Address: home [address] [facility] [facility] [address] [place] [id number] Name: SHANIKA ZAVALA Address: home [address] [place] [address]
--- OUTSIDE RECORDS SUMMARY | 2023-11-18 06:43 | XMS_ITS | Continuity of Care Document ---
Author Organization [facility] Address [address] [place] [id number]- Care Team Providers Care Lacrosse Player Name Role Phone Cornelius REDDY, Shala Kuo Primary Care Physician [facility]): 01/06/23 - 03/13/[address] [address]- Attending Physician: Not on Staff, Attending MD [...] GIVEN DATED: 11/18/11 8Admin Note: VIS GIVEN CHINESE 2011-04 9Admin Note: vis given vis date 12/26/2009 10Admin Note: Prevnar 11Admin Note: VIS GIVEN VIS DATE 03/26 Medications acetaminophen 325 mg oral tablet 650 mg, 2, tablet, By Mouth, 3 times a day, PRN, # 540 tablet, Refills 3, Tot. Refills 3, Maintenance, as needed for fever, 02/20/23 13:39:00 EDT, Route to Pharmacy Electronically, [facility], Partial fill upon patient request if the prescri... Start Date: 02/20/23 Status: Ordered Bactrim 400 mg-80 mg oral tablet 1 tablet, By Mouth, Daily, BUBBLE PACK, # 90 tablet, 1 Refills, Maintenance, 02/20/23 13:37:00 EDT,Tablet, [facility], Partial fill upon patient request if [...] mL, 11 Refills, Maintenance, 09/18/22 15:52:00 EDT, [facility], replaced tablets by [...] 13:39:00 EDT, Tablet, [facility], Partial fill uponpatient request if the prescription is for a schedu... Start Date: 02/20/23 Status: Ordered diclofenac 1% topical gel 1 application, Topically, 4 times a day, # 100 Gm, 11 Refills, Maintenance, 09/18/22 15:52:00 EDT, Gel, [facility], [...] capsule, 0 Refills, Maintenance, 02/20/23 13:46:00 EDT, [facility], Partial fill upon patient request if the prescri... Start Date: 02/20/23 Stop Date: 03/06/23 Status: Ordered duloxetine 60 mg oral enteric coated capsule 1 capsule = 60 mg, By Mouth, Daily, start with duloxetine 30mg daily x 2 weeks then duloxetine 60mgdaily; BUBBLE PACK, # 30 capsule, 4 Refills, Maintenance, 02/20/23 13:46:00 EDT, EC Capsule, [facility], Partial fill upon patient request if... [...] tablet, 3 Refills, Maintenance, 02/20/23 13:37:00 EDT,Tablet, [facility], d/c HCTZ/lisinopril, 1 tablet By Mouth Daily,Instr:BUBBLE PACK, 167.6, cm, 12/23/22 8:35:00 EDT, Height Start Date: 02/20/23 Status: Ordered Lidoderm 5% film 2 patch, Topically, Daily, remove patches after 12 hours; 2 patches to pain areas; can cut patches in half; do not excede 2 patches., # 60 patch, 4 Refills, Maintenance, 03/06/23 15:42:00 EDT, [id number], Partial fill upon patient request [...] Refills, Maintenance, 02/20/23 13:39:00 EDT, REC Powder, [facility], Partial fill upon patient request if the prescription is for a schedule II opioid... Start Date: 02/20/23 Status: Ordered [facility] Refills 0, Maintenance, Calcium/Mg/ Zinc 1 [...] Refills, Maintenance, 02/20/23 13:37:00 EDT,Tablet, [facility], Partial fill upon patient request [...] pubis OA, left Confirmed Active *Catalina Diaz Cadmium Burner-[facility] [phone] Confirmed Active Mild recurrent major depression Confirmed [...] Care Member Role: PCP Address: Address: [address] [place] [address] [place] [address]- Name: Kassi Wang RN Position: S RN Member Role: Primary Care Nurse Name: Isabell David RN Position: [facility] SN RN Member Role: Primary Care Nurse Care Team Related Persons Name: OSHEA REYES Address: home [address] [facility] [address] [place] [id number] Name: SHANIKA ZAVALA Address: home [address] [place] [address]
--- OUTSIDE RECORDS SUMMARY | 2023-11-18 06:43 | XMS_ITS | Continuity of Care Document ---
Author Organization [facility] Address [address] [place] [address]- Care Team Providers Care Appeals Assistant Name Role Phone Shala Shields MD Primary Care Physician [facility]): 05/20/23 - 06/19/23 [facility] [address] [place] [id number] Allergies, Adverse Reactions, Alerts Substance Reaction [...] GIVEN DATED: 11/18/11 8Admin Note: VIS GIVEN INDONESIAN 2011-04 9Admin Note: vis given vis date 12/26/2009 10Admin Note: Prevnar 11Admin Note: VIS GIVEN VIS DATE 03/26 Medications acetaminophen 325 mg oral tablet 650 mg, 2, tablet, By Mouth, 3 times a day, PRN, # 540 tablet, Refills 3, Tot. Refills 3, Maintenance, as needed for fever, 02/20/23 13:39:00 EDT, Route to Pharmacy Electronically, [facility], Partial fill upon patient request if the prescri... Start Date: 02/20/23 Status: Ordered Bactrim 400 mg-80 mg oral tablet 1 tablet, By Mouth, Daily, BUBBLE PACK, # 90 tablet, 1 Refills, Maintenance, 02/20/23 13:37:00 EDT,Tablet, [facility], Partial fill upon patient request if [...] mL, 11 Refills, Maintenance, 09/18/22 15:52:00 EDT, [facility], replaced tablets by suspension, 167.6, [...] 1 Refills, Maintenance, 04/25/23 11:55:00 EST, Tablet, [facility], Partial fill upon patient request if the prescription is for a... Start Date: 04/25/23 Status: Ordered diclofenac 1% topical gel 1 application, Topically, 4 times a day, # 100 Gm, 11 Refills, Maintenance, 09/18/22 15:52:00 EDT, Gel, [facility], Partial fill [...] Refills, Maintenance, 02/20/23 13:46:00 EDT, EC Capsule, [facility], Partial fill upon patient request if... [...] 1 Refills, Maintenance, 04/25/23 11:55:00 EST, Tablet, [facility], Partial fill upon patient request if the prescription is for a schedule... Start Date: 04/25/23 Status: Ordered hydrochlorothiazide-olmesartan 25 mg-40 mg oral tablet 1 tablet, By Mouth, Daily, BUBBLE PACK, # 90 tablet, 3 Refills, Maintenance, 02/20/23 13:37:00 EDT,Tablet, [facility], d/c HCTZ/lisinopril, 1 tablet By Mouth Daily,Instr:BUBBLE PACK, 167.6, cm, 12/23/22 8:35:00 EDT, Height Start Date: 02/20/23 Status: Ordered Lidoderm 5% film 2 patch, Topically, Daily, remove patches after 12 hours; 2 patches to pain areas; can cut patches in half; do not excede 2 patches., # 60 patch, 4 Refills, Maintenance, 03/06/23 15:42:00 EDT, [facility]/pharmacy #[id number], Partial fill upon patient request if t... Start Date: 03/06/23 Stop Date: 08/03/23 Status: Ordered MetroGel 1% topical gel 1 application, Topically, Daily, PRN facial rash, # 60 Gm, 11 Refills, Maintenance, 12/23/22 8:40:00 EDT, Gel, [facility], Partial fill upon patient request if the prescription is for a schedule II opioid drug., 1 application Topicall... Start Date: 12/23/22 Status: Ordered MiraLax oral powder for reconstitution = 17 Gm, By Mouth, Daily, PRN Constipation, dissolve in water before taking, # 527 Gm, 11 Refills, Maintenance, 02/20/23 13:39:00 EDT, REC Powder, [facility], Partial fill upon patient request if [...] Refills, Soft Stop, 12/23/22 8:46:00 EDT, Powder, [facility], Partial fill [...] pubis OA, left Confirmed Active *Catalina Diaz Digital Sales Executive-[facility] [phone] Confirmed Active Mild recurrent major depression Confirmed [...] Primary Care Member Role: PCP Address: Address: [address] [place] [address] [place] [address]- Name: Kassi Wang RN Position: S RN Member Role: Primary Care Nurse Name: Isabell David RN Position: [facility] SN RN Member Role: Primary Care Nurse Care Team Related Persons Name: OSHEA, REYES Address: home [address] [facility] [address] [place] [id number] Name: SHANIKA ZAVALA Address: home [address] [place] [address]
--- OUTSIDE RECORDS SUMMARY | 2023-11-18 06:43 | XMS_ITS | Continuity of Care Document ---
Author Organization [facility] Address [address] [place] [address]- Care Team Providers Care Custom Seamstress Name Role Phone Maisha Lin DO Primary Care Physician [facility] 08[facility]20 - 09/20/20 [facility] [address] [place] [id number] Attending Physician: Nate Heredia Admitting Physician: Nate Heredia Allergies, Adverse Reactions, Alerts Substance Reaction Severity [...] 10/12/20 9:47:00 EDT, 03/16/20 9:47:00 EDT, Tablet, [facility], 1 tablet By Mouth Daily,x30 days, 168, cm, 03/16/20 8:08:00 EDT, Height, 71.6, kg, 02/11/20 4:57:00... Start Date: 03/16/20 Stop Date: 10/12/20 Status: Ordered darunavir 800 mg oral tablet 1 tablet = 800 mg, By Mouth, Daily, # 90 tablet, 3 Refills, Maintenance, 09/06/20 10:47:00 EDT, Tablet, [facility]/pharmacy #[id number], 168, cm, 04/19/20 15:17:00 EST, Height, 71.6, kg, 02/11/20 4:57:00 EDT, DryWeight Start Date: 09/06/20 Stop Date: 09/01/21 Status: Ordered docusate sodium 100 mg oral capsule 100 mg, 1, capsule, By Mouth, 2 times a day, # 28 capsule, Refills 3, Tot. Refills 3, Maintenance, 03/16/20 9:41:00 EDT, Route to Pharmacy Electronically, [facility], 168, cm, 03/16/20 8:08:00 EDT, Height, 71.6, kg, 02/11/20 4:57:00 E... Start Date: 03/16/20 Stop Date: 05/11/20 Status: Ordered doxepin 25 mg oral capsule 3 capsule = 75 mg, By Mouth, Daily at bedtime, Please fill today, # 90 capsule, 5 Refills, Maintenance, 03/16/20 9:49:00 EDT, Capsule, [facility], 168, cm, 03/16/20 8:08:00 EDT, Height, 71.6, kg, 02/11/20 4:57:00 EDT, Dry Weight Start Date: 03/16/20 Stop Date: 09/12/20 Status: Ordered ferrous sulfate 325 mg oral enteric coated tablet 325 mg, 1, tablet, By Mouth, Daily, # 30 tablet, Refills 5, Tot. Refills 5, Maintenance, 04/24/20 11:06:00 EST, [id number] Partial fill upon patient requestif the prescription is for a schedule II opioid sudhir... Start Date: 04/24/20 Stop Date: 10/21/20 Status: Ordered Genvoya oral tablet 1 tablet, By Mouth, Daily, with food, # 90 tablet, 3 Refills, Maintenance, 09/06/20 10:47:00 EDT, Tablet, [id number], 1 tablet By Mouth Daily,x90 days,Instr:with food, 168, cm, 04/19/20 15:17:00 EST, Height, 71.6, kg, 02/11/20 4:57:00 EDT, Dry... Start Date: 09/06/20 Stop Date: 09/01/21 Status: Ordered influenza virus vaccine, inactivated adjuvanted preservative-free quadrivalent intramuscular susp 0.5 mL, Intramuscular, Once, # 0.5 mL, 0 Refills, Soft Stop, 03/16/20 8:57:00 EDT, [facility], [facility].5 mL Intramuscular Once, 168, cm, 03/16/20 8:08:00 EDT, Height, 71.6, kg, 02/11/20 4:57:00 EDT, Dry Weight Start Date: 03/16/20 Status: Ordered lisinopril 20 mg oral tablet 20 mg, 1, tablet, By Mouth, Daily, # 30 tablet, Refills 5, Tot. Refills 5, Maintenance, 06/08/20 10:46:00 EST, Route to Pharmacy Electronically, [facility], Jocelin davis pack, 168, [...]
--- OUTSIDE RECORDS SUMMARY | 2023-11-18 06:44 | XMS_ITS | Continuity of Care Document ---
Author Organization [facility] y Address [address] [place] [address]- Care Team Providers Care Social Media Community Manager Name Role Phone Shala Shields MD Primary Care Physician [facility]): 04/28/23 - 05/28/23 [facility] [address] [place] [address]- Allergies, Adverse Reactions, Alerts Substance Reaction Severity [...] influenza virus vaccine, inactivated 7 03/12/12 Gi afrhan influenza virus vaccine, inactivated 8 02/11/11 Gi [...] 02/20/23 13:39:00 EDT, Route to Pharmacy Electronically, [facility], Partial fill upon patient request if the prescri... Start Date: 02/20/23 Status: Ordered Bactrim 400 mg-80 mg oral tablet 1 tablet, By Mouth, Daily, BUBBLE PACK, # 90 tablet, 1 Refills, Maintenance, 02/20/23 13:37:00 EDT,Tablet, [facility], Partial fill upon patient request if [...] mL, 11 Refills, Maintenance, 09/18/22 15:52:00 EDT, [facility], replaced tablets by suspension, 167.6, cm, 07/04/22 16:00:00 EST, Height, 69.3, kg, 02/02/21 13:00... Start Date: 09/18/22 Stop Date: 08/20/23 Status: Ordered Colace sodium 100 mg oral capsule 100 mg, 1, capsule, By Mouth, 2 times a day, PRN, # 60 capsule, Refills 11, Tot. Refills 11, Maintenance, for constipation, 02/20/23 13:39:00 EDT, Route to Pharmacy Electronically, [facility], Partial fill upon patient request if the prescri... Start Date: 02/20/23 Status: Ordered darunavir 800 mg oral tablet 1 tablet = 800 mg, By Mouth, Daily, with food, please get labs before refills; BUBBLE PACK, # 90 tablet, 1 Refills, Maintenance, 04/25/23 11:55:00 EST, Tablet, [facility], Partial fill upon patient request if the prescription is for a... Start Date: 04/25/23 Status: Ordered diclofenac 1% topical gel 1 application, Topically, 4 times a day, # 100 Gm, 11 Refills, Maintenance, 09/18/22 15:52:00 EDT, Gel, [facility], Partial fill upon patient request if the prescription is for a schedule II opioid drug., 167.6, cm, 07/04/22 16:00:00... Start Date: 09/18/22 Status: Ordered duloxetine 30 mg oral enteric coated capsule 1 capsule = 30 mg, By Mouth, Daily, start with duloxetine 30mg daily x 2 weeks then duloxetine 60mgdaily; BUBBLE PACK, # 14 capsule, 0 Refills, Maintenance, 02/20/23 13:46:00 EDT, [facility], Partial fill upon patient request if the prescri... Start Date: 02/20/23 Stop Date: 03/06/23 Status: Ordered duloxetine 60 mg oral enteric coated capsule 1 capsule = 60 mg, By Mouth, Daily, start with duloxetine 30mg daily x 2 weeks then duloxetine 60mgdaily; BUBBLE PACK, # 30 capsule, 4 Refills, Maintenance, 02/20/23 13:46:00 EDT, EC Capsule, [facility], Partial fill upon patient request if... Start Date: 02/20/23 Status: Ordered ferrous sulfate 325 mg oral enteric coated tablet 325 mg, 1, tablet, By Mouth, Every other day, BUBBLE PACK, # 45 tablet, Refills 3, Tot. Refills 3, Maintenance, 02/20/23 13:37:00 EDT, Route to Pharmacy Electronically, [facility], Partial fill upon patient request if the prescription is for... Start Date: 02/20/23 Status: Ordered Genvoya oral tablet 1 tablet, By Mouth, Daily, with food, please get labs before refills; BUBBLE PACK, # 90 tablet, 1 Refills, Maintenance, 04/25/23 11:55:00 EST, Tablet, [facility], Partial fill upon patient request if the prescription is for a schedule... Start Date: 04/25/23 Status: Ordered hydrochlorothiazide-olmesartan 25 mg-40 mg oral tablet 1 tablet, By Mouth, Daily, BUBBLE PACK, # 90 tablet, 3 Refills, Maintenance, 02/20/23 13:37:00 EDT,Tablet, [facility], d/c HCTZ/lisinopril, 1 tablet By Mouth Daily,Instr:BUBBLE PACK, 167.6, cm, 12/23/22 8:35:00 EDT, Height Start Date: 02/20/23 Status: Ordered Lidoderm 5% film 2 patch, Topically, Daily, remove patches after 12 hours; 2 patches to pain areas; can cut patches in half; do not excede 2 patches., # 60 patch, 4 Refills, Maintenance, 03/06/23 15:42:00 EDT, [facility]/pharmacy #[id number], Partial fill upon patient request if t... Start Date: 03/06/23 Stop Date: 08/03/23 Status: Ordered MetroGel 1% topical gel 1 application, Topically, Daily, PRN facial rash, # 60 Gm, 11 Refills, Maintenance, 12/23/22 8:40:00 EDT, Gel, [facility], Partial fill upon patient request if the prescription is for a schedule II opioid drug., 1 application Topicall... Start Date: 12/23/22 Status: Ordered MiraLax oral powder for reconstitution = 17 Gm, By Mouth, Daily, PRN Constipation, dissolve in water before taking, # 527 Gm, 11 Refills, Maintenance, 02/20/23 13:39:00 EDT, REC Powder, [facility], Partial fill upon patient request [...] Refills, Soft Stop, 12/23/22 8:46:00 EDT, Powder, [facility], Partial fill upon patient request if the prescription is for a schedule II opioid drug., 0.5 mL Int... Start Date: 12/23/22 Status: Ordered Thera oral tablet 1 tablet, By Mouth, Daily, BUBBLE PACK, # 90 tablet, 3 Refills, Maintenance, 02/20/23 13:37:00 EDT,Tablet, [facility], Partial fill upon patient request [...] Symphasis pubis OA, left Confirmed Active *Catalina Daiz Journeyman Meat Cutter-[facility] [phone] Confirmed Active Mild recurrent major depression Confirmed [...] Care Nurse Name: Shala Shields MD Position: [facility] Physician - Primary Care Member Role: PCP Address: Address: [address] [place] [id number] Name: Kassi Wang RN Position: S RN Member Role: Primary Care Nurse Name: Isabell David RN Position: [facility] SN RN Member Role: Primary Care Nurse Care Team Related Persons Name: REYES OSHEA Address: home [address] [facility] [address] [place] [phone] Name: SHANIKA ZAVALA Address: home [address] [place] [address]
--- OUTSIDE RECORDS SUMMARY | 2023-11-18 06:44 | XMS_ITS | Continuity of Care Document ---
Author Organization [facility] Address [address] [place] [address]- Care Team Providers Care Commission Clerk Name Role Phone Shala Shields MD Primary Care Physician [facility] Date[facility]): [facility]21 - 02/02/22 [facility] [address] [place] [id number] Attending Physician: Not on Staff, Attending Referring Physician: Shala Shields MD Allergies, Adverse [...] GIVEN DATED: 11/18/11 8Admin Note: VIS GIVEN MICRONESIAN 2011-04 9Admin Note: vis given vis date 12/26/2009 10Admin Note: Prevnar 11Admin Note: VIS GIVEN VIS DATE 03/26 Medications acetaminophen 325 mg oral tablet 650 mg, 2, tablet, By Mouth, 3 times a day, PRN, # 180 tablet, Refills 11, Tot. Refills 11, Maintenance, as needed for fever, 01/28/22 14:53:00 EDT, Route to Pharmacy Electronically, [facility], Partial fill upon patient request [...] mL, 11 Refills, Maintenance, 02/02/21 17:36:00 EDT, [facility], replaced tablets by suspension, 167.6, [...] 3 Refills, Maintenance, 11/28/21 12:11:00 EDT, Tablet, [facility], Partial fill upon patient request if the prescription is for a schedule II... Start Date: 11/28/21 Status: Ordered diclofenac 1% topical gel 1 application, Topically, 4 times a day, # 100 Gm, 11 Refills, Maintenance, 12/06/21 19:06:00 EDT, Gel, [facility]/pharmacy #[id number], Partial fill upon [...] capsule, 0 Refills, Maintenance, 12/06/21 19:06:00 EDT, [facility]/pharmacy #[id number], Partial fill upon patient request if the prescription is for a... Start Date: 12/06/21 Stop Date: 12/20/21 Status: Ordered duloxetine 60 mg oral enteric coated capsule 1 capsule = 60 mg, By Mouth, Daily, start with duloxetine 30mg daily x 2 weeks then duloxetine 60mgdaily, # 30 capsule, 4 Refills, Maintenance, 12/06/21 19:06:00 EDT, EC Capsule, [facility]/pharmacy #[id number],Partial fill upon patient request if the prescripti... Start Date: 12/06/21 Status: Ordered ferrous sulfate 325 mg oral enteric coated tablet 325 mg, 1, tablet, By Mouth, Every other day, # 30 tablet, Refills 11, Tot. Refills 11, Maintenance, 12/06/21 19:06:00 EDT, Route to Pharmacy Electronically, [facility]/pharmacy #[id number], Partial fill upon patient request if the prescription is for a schedule I... Start Date: 12/06/21 Status: Ordered Genvoya oral tablet 1 tablet, By Mouth, Daily, with food, please get labs before refills, # 90 tablet, 3 Refills, Maintenance, 11/28/21 12:10:00 EDT, Tablet, [facility], Partial fill upon patient request if the prescription is for a schedule II opioid . Start Date: 11/28/21 Status: Ordered hydrochlorothiazide-lisinopril 25 mg-20 mg oral tablet 1 tablet, By Mouth, Daily, please get labs before refills, # 30 tablet, 11 Refills, Maintenance, 01/28/22 14:55:00 EDT, Tablet, [facility], d/c lisinopril 40 mg - change to combo med, 1 tablet By Mouth Daily,Instr:please get labs befo... Start Date: 01/28/22 Status: Ordered metroNIDAZOLE 0.75% topical gel 1 applicator, Vaginally, Daily, # 70 Gm, 0 Refills, Maintenance, 11/20/21 14:08:00 EDT, [facility], Partial fill upon patient request if the prescription is for a schedule II opioid drug., 1 applicator Vaginally Daily,x5 days, 167.6,... Start Date: 11/20/21 Stop Date: 11/25/21 Status: Ordered MiraLax oral powder for reconstitution = 17 Gm, By Mouth, Daily, PRN Constipation, dissolve in water before taking, # 527 Gm, 11 Refills, Maintenance, 02/08/21 20:01:00 EDT, REC Powder, [facility]/pharmacy #[id number], Partial fill upon [...] 11 Refills, Maintenance, 03/09/21 16:13:00 EDT, Tablet, [facility], Partial fill upon [...] Active Iron deficiency anemia(Confirmed) Active *Catalina Diaz [facility] [phone](Confirmed) Active Mild recurrent major depression(Confirmed) Active Urinary incontinence(Confirmed) Active 1EGD 07/2010 - likely apthous ulcers with very morbid 2 weeks of weight loss and requiring IV fluids Social History Social History Type Response Smoking Status Never smoker; Tobacc o user in household: No entered on: 01/26/15 Sex Care Team Personnel Name: Shala Shields MD Address: [address] [place] [address], -[facility] [address]
--- OUTSIDE RECORDS SUMMARY | 2023-11-18 06:44 | XMS_ITS | Continuity of Care Document ---
Author Organization [facility] Address [address] [place] [address]- Care Team Providers Care Preload Supervisor Name Role Phone Cornelius REDDY, Shala Kuo Primary Care Physician [facility] Date[facility]s): 02/20/23 - 08/28/[address] [address]- Attending Physician: Not on Staff, Attending MD Allergies, Adverse Reactions, Alerts Substance Reaction Severity Status azithromycin 1 Persistent Mild Active rifabutin Rash Persistent Moderate Active amLODIPine 2 Active 1Rash 2Had Lower extremity ankle swelling with 10mg. Immunizations Given and Recorded Vaccine Date Status Refusal Reason SARS-CoV-2 (COVID-19) [id number] vaccine 04/04/22 G iven influenza virus vaccine, [...] GIVEN DATED: 11/18/11 8Admin Note: VIS GIVEN KAZAKH 2011-04 9Admin Note: vis given vis date 12/26/2009 10Admin Note: Prevnar 11Admin Note: VIS GIVEN VIS DATE 03/26 Medications acetaminophen 325 mg oral tablet 650 mg, 2, tablet, By Mouth, 3 times a day, PRN, # 540 tablet, Refills 3, Tot. Refills 3, Maintenance, as needed for fever, 02/20/23 13:39:00 EDT, Route to Pharmacy Electronically, [facility], Partial fill upon patient request if the prescri... Start Date: 02/20/23 Status: Ordered Bactrim 400 mg-80 mg oral tablet 1 tablet, By Mouth, Daily, BUBBLE PACK, # 90 tablet, 1 Refills, Maintenance, 02/20/23 13:37:00 EDT,Tablet, [facility], Partial fill upon patient request if [...] 02/20/23 13:39:00 EDT, Route to Pharmacy Electronically, [facility], Partial fill upon patient request if the prescri... Start Date: 02/20/23 Status: Ordered darunavir 800 mg oral tablet 1 tablet = 800 mg, By Mouth, Daily, with food, please get labs before refills; BUBBLE PACK, # 90 tablet, 1 Refills, Maintenance, 04/25/23 11:55:00 EST, Tablet, [facility], Partial fill upon patient request if the prescription is for a... Start Date: 04/25/23 Status: Ordered diclofenac 1% topical gel 1 application, Topically, 4 times a day, # 100 Gm, 11 Refills, Maintenance, 09/18/22 15:52:00 EDT, Gel, [facility], Partial fill upon patient request if the prescription is for a schedule II opioid drug., 167.6, cm, 07/04/22 16:00:00... Start Date: 09/18/22 Status: Ordered duloxetine 60 mg oral enteric coated capsule 1 capsule = 60 mg, By Mouth, Daily, start with duloxetine 30mg daily x 2 weeks then duloxetine 60mgdaily;, # 30 capsule, 4 Refills, Maintenance, 07/03/23 19:03:00 EST, EC Capsule, [facility], Partial fill upon patient request if the... Start Date: 07/03/23 Status: Ordered ferrous sulfate 325 mg oral enteric coated tablet 325 mg, 1, tablet, By Mouth, Daily, # 90 tablet, Refills 3, Tot. Refills 3, Maintenance, 08/26/23 9:38:00 EDT, Route to Pharmacy Electronically, [facility], Partial fill upon patientrequest if the prescription is for a schedule II op... Start Date: 08/26/23 Status: Ordered gabapentin 100 mg oral capsule 100 mg, 1, capsule, By Mouth, Daily at bedtime, PRN, # 30 capsule, Refills 4, Tot. Refills 4, Maintenance, Anxiety, 08/05/23 10:19:00 EDT, Route to Pharmacy Electronically, [facility], Partial fill upon patient request [...] 4 Refills, Maintenance, 08/07/23 15:23:00 EDT, Tablet, [facility]/pharmacy #[id number], decrease dose, 0.5 tablet By Mouth Daily, 167.6, cm, 08/05/23 9:50:00 EDT, Height Start Date: 08/07/23 Status: Ordered Lidoderm 5% film 2 patch, Topically, Daily, remove patches after 12 hours; 2 patches to pain areas; can cut patches in half; do not excede 2 patches., # 60 patch, 4 Refills, Maintenance, 03/06/23 15:42:00 EDT, [facility]/pharmacy #[id number], Partial fill upon patient request if t... Start Date: 03/06/23 Stop Date: 08/03/23 Status: Ordered meloxicam 7.5 mg oral tablet 1 tablet = 7.5 mg, By Mouth, Daily, Talke with acetaminophen, # 14 tablet, 0 Refills, Maintenance, 08/25/23 16:16:00 EDT, Tablet, [facility], [...] 4 Refills, Maintenance, 07/28/23 16:46:00 EDT, Tablet, [facility]/pharmacy #[id number], Partial [...] Refills, Maintenance, 07/03/23 18:52:00 EST, REC Powder, [facility], Partial fill upon patient request if the prescription is for a schedule II opioid drug., 17 Gm... Start Date: 07/03/23 Stop Date: 10/01/23 Status: Ordered Thera oral tablet 1 tablet, By Mouth, Daily, # 90 tablet, 3 Refills, Maintenance, 08/26/23 9:38:00 EDT, Tablet, [facility], Partial fill upon patient request if the prescription is for a schedule II opioid drug., 1 tablet By Mouth Daily, 167.6, cm, ... Start Date: 08/26/23 Status: Ordered Vitamin D3 1000 intl units oral capsule 1 capsule = 25 mcg, By Mouth, Daily, # 90 capsule, 3 Refills, Maintenance, 07/03/23 19:05:00 EST, Capsule, [facility], Partial [...] pubis OA, left Confirmed Active *Catalina Diaz [employer]-[facility] [phone] Confirmed Active Mild recurrent major depression Confirmed [...] Primary Care Member Role: PCP Address: Address: [address] [place] [address] Name: Kassi Wang RN Position: [facility] RN Member Role: Primary Care Nurse Name: Isabell David RN Position: [facility] ERNESTO Office Staff Member Role: Primary Care Nurse Care Team Related Persons Name: REYES OSHEA Address: home [address] [address] Name: SHANIKA ZAVALA Address: home [address] [place] [address]
--- OUTSIDE RECORDS SUMMARY | 2023-11-18 06:44 | XMS_ITS | Continuity of Care Document ---
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 Name Role Phone Shala Shields MD Primary Care Physician Encounter [facility] Date(s): 01/11/21 - 02/10/21 [facility] [address] [place] [address]- Attending Physician: Jairo Ochoa Admitting Physician: Jairo [...] given 12/11/2012 7Admin Note: VIS GIVEN DATED: 7/2/12 8Admin Note: VIS GIVEN PERSIAN 2011-04 9Admin Note: vis given vis date 12/26/2009 10Admin Note: Prevnar 11Admin Note: VIS GIVEN VIS DATE 03/26 Medications Bactrim DS 800 mg-160 mg oral tablet 1 tablet, By Mouth, Daily, # 30 tablet, 5 Refills, Maintenance, 01/25/21 10:04:00 EDT, Tablet, [facility], Partial fill upon patient [...] mL, 11 Refills, Maintenance, 02/02/21 17:36:00 EDT, [facility], replaced tablets by suspension, 167.6, cm, 02/02/21 13:00:00 EDT, Height, 69.3, kg, 02/02/21 13:00... Start Date: 02/02/21 Stop Date: 01/04/22 Status: Ordered Colace sodium 100 mg oral capsule 100 mg, 1, capsule, By Mouth, 2 times a day, PRN, # 60 capsule, Refills 11, Tot. Refills 11, Maintenance, for constipation, 02/08/21 20:01:00 EDT, Route to Pharmacy Electronically, [facility]/pharmacy #[id number], Partial fill upon patient request if the prescript... Start Date: 02/08/21 Status: Ordered darunavir 800 mg oral tablet 1 tablet = 800 mg, By Mouth, Daily, # 30 tablet, 5 Refills, Maintenance, 01/25/21 10:06:00 EDT, Tablet, [facility], Partial fill upon patient request if the prescription is for a schedule II opioid drug., 167.6, cm, 01/23/21 18:14:00... Start Date: 01/25/21 Status: Ordered ferrous sulfate 325 mg oral enteric coated tablet 325 mg, 1, tablet, By Mouth, Daily, # 30 tablet, Refills 1, Tot. Refills 1, Maintenance, 01/06/21 18:35:00 EDT, Route to Pharmacy Electronically, [facility], Partial fill upon patient request if the prescription is for a schedule II o... Start Date: 01/06/21 Status: Ordered Genvoya oral tablet 1 tablet, By Mouth, Daily, with food, # 30 tablet, 5 Refills, Maintenance, 01/25/21 9:51:00 EDT, Tablet, [facility], Partial fill upon patient request if the prescription is for a schedule II opioid drug., 1 tablet By Mouth Daily,Inst... Start Date: 01/25/21 Status: Ordered lisinopril 10 mg oral tablet 10 mg, 1, tablet, By Mouth, Daily, # 30 tablet, Refills 1, Tot. Refills 1, Maintenance, 01/06/21 18:35:00 EDT, Route to Pharmacy Electronically, [facility], Partial fill upon patientrequest if the prescription is for a schedule II op... Start Date: 01/06/21 Stop Date: 02/05/21 Status: Ordered lisinopril 20 mg oral tablet 20 mg, 1, tablet, By Mouth, Daily, # 30 tablet, Refills 4, Tot. Refills 4, Maintenance, 02/08/21 19:30:00 EDT, Route to Pharmacy Electronically, [facility]/pharmacy #[id number], increase dose, 167.6, cm, 02/08/2118:40:00 EDT, Height, 69.3, kg, 02/02/21 13:00:00 E... Start Date: 02/08/21 Status: Ordered MiraLax oral powder for reconstitution = 17 Gm, By Mouth, Daily, PRN Constipation, dissolve in water before taking, # 527 Gm, 11 Refills, Maintenance, 02/08/21 20:01:00 EDT, REC Powder, [facility]/pharmacy #[id number], Partial fill upon patient request if the prescription is for a schedule II opioid dr.Shilo Start Date: 02/08/21 Status: Ordered mirtazapine 15 mg oral tablet 1 tablet = 15 mg, By Mouth, Daily at bedtime, # 30 tablet, 4 Refills, Maintenance, 02/08/21 19:28:00 EDT, Tablet, [facility]/pharmacy #[id number], increase dose, 167.6, cm, 02/08/21 18:40:00 EDT, Height, 69.3, kg, 02/02/21 13:00:00 EDT, Dry Weight Start Date: 02/08/21 Stop Date: 07/08/21 Status: Ordered [facility] Rx Refills 0, Maintenance, Calcium/Mg/ Zinc 1 [...] 14:41:00 EDT, Route to Pharmacy Electronically, [facility]/pharmacy #[id number], 167.6, cm, 02/02/21 13:00:00 EDT, [...] EDT, 12/19/20 10:56:00 EDT, REC Powder, [facility]/pharmacy #[id number], Partial fill upon patient request... Start Date: 12/19/20 Stop Date: 12/16/21 Status: Ordered Tylenol 325 mg oral tablet 650 mg, 2, tablet, By Mouth, Every 4 hours, PRN, # 24 tablet, Refills 1, Tot. Refills 1, Maintenance, for fever, 02/02/21 14:41:00 EDT, Route to Pharmacy Electronically, [facility]/pharmacy #[id number], Partial fill upon patient request [...]
--- OUTSIDE RECORDS SUMMARY | 2023-11-18 06:44 | XMS_ITS | Continuity of Care Document ---
Author Organization [facility] Address [address] [place] [address]- Care Team Providers Care Strategy Intern Name Role Phone Cornelius REDDY, Shala Kuo Primary Care Physician [facility]): 04[facility]11[facility]21 - 05/17/21 [facility] [address] [place], [place] [address] Attending Physician: Not on Staff, [...] GIVEN DATED: 11/18/11 8Admin Note: VIS GIVEN UPPER SORBIAN 2011-04 9Admin Note: vis given vis date 12/26/2009 10Admin Note: Prevnar 11Admin Note: VIS GIVEN VIS DATE 03/26 Medications Bactrim DS 800 mg-160 mg oral tablet 1 tablet, By Mouth, Daily, # 30 tablet, 5 Refills, Maintenance, 01/25/21 10:04:00 EDT, Tablet, [facility], Partial fill upon patient request [...] mL, 11 Refills, Maintenance, 02/02/21 17:36:00 EDT, [facility], replaced tablets by suspension, 167.6, cm, 02/02/21 13:00:00 EDT, Height, 69.3, kg, 02/02/21 13:00... Start Date: 02/02/21 Stop Date: 01/04/22 Status: Ordered Colace sodium 100 mg oral capsule 100 mg, 1, capsule, By Mouth, 2 times a day, PRN, # 60 capsule, Refills 11, Tot. Refills 11, Maintenance, for constipation, 02/08/21 20:01:00 EDT, Route to Pharmacy Electronically, [facility]/pharmacy #[id number], Partial fill upon patient request if the prescript... Start Date: 02/08/21 Status: Ordered darunavir 800 mg oral tablet 1 tablet = 800 mg, By Mouth, Daily, # 30 tablet, 5 Refills, Maintenance, 01/25/21 10:06:00 EDT, Tablet, [facility], Partial fill upon patient request if the prescription is for a schedule II opioid drug., 167.6, cm, 01/23/21 18:14:00... Start Date: 01/25/21 Status: Ordered ferrous sulfate 325 mg oral enteric coated tablet 325 mg, 1, tablet, By Mouth, Daily, # 30 tablet, Refills 11, Tot. Refills 11, Maintenance, 03/02/2112:59:00 EDT, Route to Pharmacy Electronically, [facility], Partial fill upon patient request if the prescription is for a schedule II... Start Date: 03/02/21 Status: Ordered Genvoya oral tablet 1 tablet, By Mouth, Daily, with food, # 30 tablet, 5 Refills, Maintenance, 01/25/21 9:51:00 EDT, Tablet, [facility], Partial fill upon patient request if the prescription is for a schedule II opioid drug., 1 tablet By Mouth Daily,Inst... Start Date: 01/25/21 Status: Ordered lisinopril 40 mg oral tablet 1 tablet = 40 mg, By Mouth, Daily, # 30 tablet, 11 Refills, Maintenance, 03/08/21 8:46:00 EDT, Tablet, [facility], Dose increased, 167.6, cm, 02/19/21 16:01:00 EDT, Height, 69.3, kg,02/02/21 13:00:00 EDT, Dry Weight Start Date: 03/08/21 Status: Ordered MiraLax oral powder for reconstitution = 17 Gm, By Mouth, Daily, PRN Constipation, dissolve in water before taking, # 527 Gm, 11 Refills, Maintenance, 02/08/21 20:01:00 EDT, REC Powder, [facility]/pharmacy #[id number], Partial fill upon [...] Date: 02/19/21 Stop Date: 07/19/21 Status: Ordered [facility] Rx Refills 0, Maintenance, [...] 02/02/21 14:41:00 EDT, Route to Pharmacy Electronically, [facility]/pharmacy #[id number], 167.6, cm, 02/02/21 [...] 10:56:00 EDT, 12/19/20 10:56:00 EDT, REC Powder, [facility]/pharmacy #[id number], Partial fill upon patient request... Start Date: 12/19/20 Stop Date: 12/16/21 Status: Ordered Thera oral tablet 1 tablet, By Mouth, Daily, # 30 tablet, 11 Refills, Maintenance, 03/09/21 16:13:00 EDT, Tablet, [facility], Partial fill upon [...] 02/02/21 14:41:00 EDT, Route to Pharmacy Electronically, [facility]/pharmacy #[id number], Partial fill upon patient request if the [...]
--- OUTSIDE RECORDS SUMMARY | 2023-11-18 06:44 | XMS_ITS | Continuity of Care Document ---
Author Organization [facility] Address [address] [place] [address]- Care Team Providers Care Lead Php Developer Name Role Phone Maisha Lin DO Primary Care Physician Encounter [facility] Date(s): 09/16/19 - 10/16/19 [facility] [address] [place] [address]- [facility] Attending Physician: Admtr, Ar8 Allergies, Adverse Reactions, [...] GIVEN DATED: 11/18/11 8Admin Note: VIS GIVEN MALAWIAN 2011-04 9Admin Note: vis given vis date [...] Maintenance, 05/18/19 11:15:00 EST, Tablet, [facility] Please deliver, 170, cm, 04/21/19 16:03:00 EST, Height Start Date: 05/18/19 Stop Date: 08/16/19 Status: Ordered doxepin 25 mg oral capsule 3 capsule = 75 mg, By Mouth, Daily at bedtime, Please fill today, # 90 capsule, 5 Refills, Maintenance, 05/18/19 11:13:00 EST, Capsule, [facility] 170, cm, 04/21/19 16:03:00 EST, Height Start Date: 05/18/19 Stop Date: 11/14/19 Status: Ordered ferrous gluconate 324 mg (37.5 mg elemental iron) oral tablet 1 tablet = 324 mg, By Mouth, 2 times a day, # 60 tablet, 1 Refills, Maintenance, 05/20/19 13:38:00 EST, Tablet, [facility]/pharmacy #[id number], 170, cm, 04/21/19 16:03:00 [...] 2 Refills, Maintenance, 05/18/19 11:15:00 EST, Tablet, [facility], Please deliver, 1 tablet By Mouth [...] 05/18/19 11:13:00 EST, Route to Pharmacy Electronically, [facility], Please fill today, 170, cm, 04/21/19 [...] 04/21/19 16:44:15 EST, Route to Pharmacy Electronically, [id number], [facility], 170, cm, 04/21/19 16:03:00 EST, Height Start Date: 04/21/19 Status: Ordered Vitamin D 01989 iu oral capsule 50,000 International_Units, 1, capsule, By Mouth, Every week, # 5 capsule, Refills 2, Tot. Refills 2, Maintenance, 05/18/19 11:14:00 EST, Route to Pharmacy Electronically, [facility]170, cm, 04/21/19 16:03:00 EST, Height [...]
--- OUTSIDE RECORDS SUMMARY | 2023-11-18 06:44 | XMS_ITS | Continuity of Care Document ---
Author Organization [facility] Address [address] [place] [address]- Care Team Providers Care Sagger Maker Name Role Phone Cornelius REDDY, Shala Kuo Primary Care Physician [phone] Encounter [facility] Date(s): 03/27/22 - 04/26/22 [facility] [address] [place] [id number] Allergies, Adverse Reactions, Alerts Substance Reaction [...] GIVEN DATED: 11/18/11 8Admin Note: VIS GIVEN BELARUSIAN 2011-04 9Admin Note: vis given vis date 12/26/2009 10Admin Note: Prevnar 11Admin Note: VIS GIVEN VIS DATE 03/26 Medications acetaminophen 325 mg oral tablet 650 mg, 2, tablet, By Mouth, 3 times a day, PRN, # 180 tablet, Refills 11, Tot. Refills 11, Maintenance, as needed for fever, 01/28/22 14:53:00 EDT, Route to Pharmacy Electronically, [facility], Partial fill upon patient [...] mL, 11 Refills, Maintenance, 03/29/22 11:16:00 EST, [facility], replaced tablets by suspension, 167.6, cm, 03/05/22 9:57:00 EDT, Height, 69.3, kg, 02/02/21 13:00:... Start Date: 03/29/22 Stop Date: 02/28/23 Status: Ordered Colace sodium 100 mg oral capsule 100 mg, 1, capsule, By Mouth, 2 times a day, PRN, # 60 capsule, Refills 11, Tot. Refills 11, Maintenance, for constipation, 03/29/22 11:16:00 EST, Route to Pharmacy Electronically, [facility], Partial fill upon patient request if the... Start Date: 03/29/22 Status: Ordered darunavir 800 mg oral tablet 1 tablet = 800 mg, By Mouth, Daily, with food, please get labs before refills, # 90 tablet, 3 Refills, Maintenance, 11/28/21 12:11:00 EDT, Tablet, [facility], Partial fill upon patient request if the prescription is for a schedule II... Start Date: 11/28/21 Status: Ordered diclofenac 1% topical gel 1 application, Topically, 4 times a day, # 100 Gm, 11 Refills, Maintenance, 12/06/21 19:06:00 EDT, Gel, [facility]/pharmacy #[id number], Partial fill upon patient request if the prescription is for a schedule II opioid drug., 167.6, cm, 12/06/21 18:07:00 EDT, [place]... Start Date: 12/06/21 Status: Ordered duloxetine 60 mg oral enteric coated capsule 1 capsule = 60 mg, By Mouth, Daily, # 30 capsule, 11 Refills, Maintenance, 03/05/22 12:42:00 EDT, EC Capsule, [facility], Partial fill upon patient request if the prescription is fora schedule II opioid drug., 167.6, cm, 03/05/22 9:5... Start Date: 03/05/22 Status: Ordered ferrous sulfate 325 mg oral enteric coated tablet 325 mg, 1, tablet, By Mouth, Every other day, # 30 tablet, Refills 11, Tot. Refills 11, Maintenance, 12/06/21 19:06:00 EDT, Route to Pharmacy Electronically, [facility]/pharmacy #[id number], Partial fill upon patient request if the prescription is for a schedule I... Start Date: 12/06/21 Status: Ordered Genvoya oral tablet 1 tablet, By Mouth, Daily, with food, please get labs before refills, # 90 tablet, 3 Refills, Maintenance, 11/28/21 12:10:00 EDT, Tablet, [facility], Partial fill upon patient request if the prescription is for a schedule II opioid drShilo. Start Date: 11/28/21 Status: Ordered hydrochlorothiazide-olmesartan 25 mg-40 mg oral tablet 1 tablet, By Mouth, Daily, # 30 tablet, 4 Refills, Maintenance, 04/04/22 19:39:00 EST, Tablet, [facility], d/c HCTZ/lisinopril, 1 tablet By Mouth Daily, 167.6, cm, 04/04/22 19:29:00 EST, Height, 69.3, kg, 02/02/21 13:00:00 EDT, Dry We... Start Date: 04/04/22 Status: Ordered metroNIDAZOLE 0.75% topical gel 1 applicator, Vaginally, Daily, # 70 Gm, 0 Refills, Maintenance, 11/20/21 14:08:00 EDT, [facility], Partial fill upon patient request if the prescription is for a schedule II opioid drug., 1 applicator Vaginally Daily,x5 days, 167.6,... Start Date: 11/20/21 Stop Date: 11/25/21 Status: Ordered MiraLax oral powder for reconstitution = 17 Gm, By Mouth, Daily, PRN Constipation, dissolve in water before taking, # 527 Gm, 11 Refills, Maintenance, 03/29/22 11:16:00 EST, REC Powder, [facility], Partial fill upon patient request if the prescription is for a schedule II... Start Date: 03/29/22 Status: Ordered mirtazapine 15 mg oral tablet 1 tablet = 15 mg, By Mouth, Daily at bedtime, please get labs before refills, # 30 tablet, 11 Refills, Maintenance, 03/28/22 20:40:00 EST, Tablet, [facility], increase dose, 167.6, cm, 03/05/22 [...] 11 Refills, Maintenance, 03/29/22 11:15:00 EST, Tablet, [facility], Partial fill upon patient request if the prescription is for a schedule IIopioid drug., 1 tablet By Mouth Daily, 167.6, cm, 1... Start Date: 03/29/22 Status: Ordered Wellbutrin XL 300 mg/24 hours oral tablet, extended release 1 tablet = 300 mg, By Mouth, Daily, # 30 tablet, 4 Refills, Maintenance, 04/04/22 19:36:00 EST, ER Tablet, [facility], Partial fill upon patient request if the prescription is for a schedule II opioid drug., 167.6, cm, 04/04/22 19:29:... 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, CMV ulcer Confirmed Active Fibromyalgia Confirmed Active Abnormal uterine bleeding Confirmed Active Hip pain Confirmed Active HSV Confirmed Active HIV disease Confirmed Active Hypertension Confirmed Active Iron deficiency anemia Confirmed Active *Catalina Diaz Concrete Sculptor-[facility] [phone] Confirmed Active Mild recurrent major depression Confirmed Active Urinary incontinence Confirmed Active 1EGD 07/2010 - likely apthous ulcers with very morbid 2 weeks of weight loss and requiring IV fluids Social History Social History Type Response Smoking Status Never smoker; Tobacc o user in household: No entered on: 01/26/15 Sex Patient Care team information Care Team Personnel Name: Jaky Nicole RN Position: [facility] RN Member Role: Primary Care Nurse Name: Rhea Heard Position: S RN Member Role: Primary Care Nurse Name: Shala Shields MD Position: [facility] Primary Care Physician Member Role: PCP Address: Address: [address] [place] [address], -[place], [place] [address] Name: Kassi Wang RN Position: [facility] RN Member Role: Primary Care Nurse Name: Isabell David RN Position: [facility] SN RN Member Role: Primary Care Nurse Care Team Related Persons Name: REYES OSHEA Address: home [address] [place] [id number] Name: SHANIKA ZAVALA Address: home [address] [place] [address]
--- OUTSIDE RECORDS SUMMARY | 2023-11-18 06:44 | XMS_ITS | Continuity of Care Document ---
Author Organization [facility] y Address [address] [place] [address]- Care Team Providers Care Sports Physician Name Role Phone Shala Shields MD Primary Care Physician [place] [facility] [place]07[place] - 06/16/[place] [facility] [address] [place] [address]- Attending Physician: Darío Diehl MD Admitting Physician: [...] DATED: 11/18/11 8Admin Note: VIS GIVEN ALBANIAN 2011-04 9Admin Note: vis given vis date 12/26/2009 10Admin Note: Prevnar 11Admin Note: VIS GIVEN VIS DATE 03/26 Medications Bactrim DS 800 mg-160 mg oral tablet 1 tablet, By Mouth, Daily, # 30 tablet, 5 Refills, Maintenance, 01/25/21 10:04:00 EDT, Tablet, [facility], Partial fill upon [...] mL, 11 Refills, Maintenance, 02/02/21 17:36:00 EDT, [facility], replaced tablets by [...] Electronically, [facility]/pharmacy #[id number], Partial fill upon patient request if the prescript... Start Date: 02/08/21 Status: Ordered darunavir 800 mg oral tablet 1 tablet = 800 mg, By Mouth, Daily, # 30 tablet, 5 Refills, Maintenance, 01/25/21 10:06:00 EDT, Tablet, [facility], Partial fill upon patient request if the prescription is for a schedule II opioid drug., 167.6, cm, 01/23/21 18:14:00... Start Date: 01/25/21 Status: Ordered ferrous sulfate 325 mg oral enteric coated tablet 325 mg, 1, tablet, By Mouth, Daily, # 30 tablet, Refills 11, Tot. Refills 11, Maintenance, 03/02/2112:59:00 EDT, Route to Pharmacy Electronically, [facility], Partial fill upon patient request if the prescription is for a schedule II... Start Date: 03/02/21 Status: Ordered Genvoya oral tablet 1 tablet, By Mouth, Daily, with food, # 30 tablet, 5 Refills, Maintenance, 01/25/21 9:51:00 EDT, Tablet, [facility], Partial fill upon patient request if the prescription is for a schedule II opioid drug., 1 tablet By Mouth Daily,Inst... Start Date: 01/25/21 Status: Ordered lisinopril 40 mg oral tablet 1 tablet = 40 mg, By Mouth, Daily, # 30 tablet, 11 Refills, Maintenance, 03/08/21 8:46:00 EDT, Tablet, [facility], Dose increased, 167.6, cm, 02/19/21 16:01:00 EDT, Height, 69.3, kg,02/02/21 13:00:00 EDT, Dry Weight Start Date: 03/08/21 Status: Ordered MiraLax oral powder for reconstitution = 17 Gm, By Mouth, Daily, PRN Constipation, dissolve in water before taking, # 527 Gm, 11 Refills, Maintenance, 02/08/21 20:01:00 EDT, REC Powder, [facility]/pharmacy #[id number], Partial fill upon patient request if the prescription is for a schedule II opioid drShilo. Start Date: 02/08/21 Status: Ordered mirtazapine 15 mg oral tablet 1 tablet = 15 mg, By Mouth, Daily at bedtime, # 30 tablet, 4 Refills, Maintenance, 02/19/21 16:53:00 EDT, Tablet, [facility], increase dose, 167.6, cm, 02/19/21 [...] [facility]/pharmacy #[id number], 167.6, cm, 02/02/21 [...] 12/19/20 10:56:00 EDT, REC Powder, [facility]/pharmacy #[id number], Partial fill upon patient request... Start Date: 12/19/20 Stop Date: 12/16/21 Status: Ordered Thera oral tablet 1 tablet, By Mouth, Daily, # 30 tablet, 11 Refills, Maintenance, 03/09/21 16:13:00 EDT, Tablet, [facility], Partial fill upon [...] Electronically, [facility]/pharmacy #[id number], Partial fill upon patient request if the [...]
--- OUTSIDE RECORDS SUMMARY | 2023-11-18 06:44 | XMS_ITS | Continuity of Care Document ---
Author Organization [facility] Address [address] [place] [address]- Care Team Providers Care Rice Field Worker Name Role Phone Maisha Lin DO Primary Care Physician Encounter [facility] Date(s): 02/14/20 - 03/15/20 [facility] [address] [place] [address]- [facility] Allergies, Adverse Reactions, Alerts Substance Reaction Severity [...] GIVEN DATED: 11/18/11 8Admin Note: VIS GIVEN GHANAIAN 2011-04 9Admin Note: vis given vis date [...] 14:11:00 EDT, 02/12/20 14:11:00 EDT, Tablet, [facility]/pharmacy #[id number], 1 tablet By Mouth Daily,x30 days, 168, cm, 02/12/20 6:00:00 EDT, Height, 71.6, kg, 02/11/20 4:57:00 EDT, . Start Date: 02/12/20 Stop Date: 09/09/20 Status: Ordered Carafate 1 gm oral tablet 1 Gm, 1, tablet, By Mouth, 4 times a day, # 120 tablet, Refills 0, Tot. Refills 0, Maintenance, 02/12/20 14:06:00 EDT, Route to Pharmacy Electronically, [facility]/pharmacy #[id number], 168, cm, 02/12/20 6:00:00 EDT, Height, 71.6, kg, 02/11/20 4:57:00 EDT, Dry Weight Start Date: 02/12/20 Status: Ordered docusate sodium 100 mg oral capsule 100 mg, 1, capsule, By Mouth, 2 times a day, # 28 capsule, Refills 0, Tot. Refills 0, Maintenance, 02/12/20 14:06:00 EDT, Route to Pharmacy Electronically, [facility]/pharmacy #[id number], 168, cm, 02/12/20 6:00:00 EDT, Height, 71.6, kg, 02/11/20 4:57:00 EDT, Dry... Start Date: 02/12/20 Stop Date: 02/26/20 Status: Ordered doxepin 25 mg oral capsule 3 capsule = 75 mg, By Mouth, Daily at bedtime, Please fill today, # 90 capsule, 5 Refills, Maintenance, 05/18/19 11:13:00 EST, Capsule, [facility], 170, cm, 04/21/19 16:03:00 EST, Height Start Date: 05/18/19 Stop Date: 11/14/19 Status: Ordered ferrous gluconate 324 mg (37.5 mg elemental iron) oral tablet 1 tablet = 324 mg, By Mouth, 2 times a day, # 60 tablet, 1 Refills, Maintenance, 02/29/20 12:45:00 EDT, Tablet, [facility]/pharmacy #[id number], 168, cm, 02/12/20 6:00:00 EDT, Height, [...] 8:18:00 EDT, Route to Pharmacy Electronically, [facility]/pharmacy #[id number], Please fill today, 170, cm, 02/10/20 8:01:00 EDT, Height Start Date: 02/10/20 Stop Date: 08/08/20 Status: Ordered Norvasc 5 mg oral tablet 5 mg, 1, tablet, By Mouth, Daily, # 30 tablet, Refills 0, Tot. Refills 0, Maintenance, 02/12/20 14:04:00 EDT, Route to Pharmacy Electronically, [facility]/pharmacy #[id number], 168, cm, 02/12/20 6:00:00 EDT, Height, [...] 14:04:00 EDT Start Date: 02/12/20 Status: Ordered Vitamin D [address] iu oral capsule 50,000 International_Units, 1, capsule, By Mouth, Every week, # 5 capsule, Refills 2, Tot. Refills 2, Maintenance, 02/10/20 8:14:00 EDT, Route to Pharmacy Electronically, [facility]/pharmacy #[id number], 170, cm,02/10/20 8:01:00 EDT, Height Start [...]
--- OUTSIDE RECORDS SUMMARY | 2023-11-18 06:44 | XMS_ITS | Continuity of Care Document ---
Author Organization [facility] y Address [address] [place] [address]- Care Team Providers Care Offensive Coordinator Name Role Phone Shala Shields MD Primary Care Physician [facility]counter [facility] Date(s): 09/04/23 - 10/04/23 [facility] [address] [place], [place] [address] Attending Physician: Admtr, Jairo Admitting Physician: Admtr, Ar8 Referring Physician: Admtr, Ar8 Allergies, Adverse Reactions, Alerts Substance Reaction Severity Status azithromycin 1 Persistent Mild Active rifabutin Rash Persistent Moderate Active amLODIPine 2 Active 1Rash 2Had Lower extremity ankle swelling with 10mg. Immunizations Given and Recorded Vaccine Date Status Refusal Reason SARS-CoV-2 (COVID-19) mRNA-7399 vaccine 04/04/22 G iven influenza virus vaccine, [...] GIVEN DATED: 11/18/11 8Admin Note: VIS GIVEN AFGHAN 2011-04 9Admin Note: vis given vis date 12/26/2009 10Admin Note: Prevnar 11Admin Note: VIS GIVEN VIS DATE 03/26 Medications acetaminophen 325 mg oral tablet 650 mg, 2, tablet, By Mouth, 3 times a day, PRN, # 540 tablet, Refills 3, Tot. Refills 3, Maintenance, as needed for fever, 02/20/23 13:39:00 EDT, Route to Pharmacy Electronically, [facility], Partial fill upon patient request if [...] 02/20/23 13:39:00 EDT, Route to Pharmacy Electronically, [facility], Partial fill upon patient request if the prescri... Start Date: 02/20/23 Status: Ordered darunavir 800 mg oral tablet 1 tablet = 800 mg, By Mouth, Daily, with food, please get labs before refills; BUBBLE PACK, # 90 tablet, 1 Refills, Maintenance, 09/29/23 14:29:00 EDT, Tablet, [facility], Partial fill upon patient request if the prescription is for a... Start Date: 09/29/23 Status: Ordered diclofenac 1% topical gel 1 application, Topically, 4 times a day, # 100 Gm, 11 Refills, Maintenance, 09/18/22 15:52:00 EDT, Gel, [facility], Partial fill upon patient [...] Refills, Maintenance, 07/03/23 19:03:00 EST, EC Capsule, [facility], Partial fill upon patient request if the... Start Date: 07/03/23 Status: Ordered ferrous sulfate 325 mg oral enteric coated tablet 325 mg, 1, tablet, By Mouth, Daily, # 90 tablet, Refills 3, Tot. Refills 3, Maintenance, 08/26/23 9:38:00 EDT, Route to Pharmacy Electronically, [facility], Partial fill upon patientrequest [...] 09/24/23 14:21:00 EDT, Route to Pharmacy Electronically, [facility],... Start Date: 09/24/23 Status: Ordered Genvoya oral tablet 1 tablet, By Mouth, Daily, with food, please get labs before refills; BUBBLE PACK, # 90 tablet, 1 Refills, Maintenance, 09/29/23 14:29:00 EDT, Tablet, [facility], Partial fill upon patient request if the prescription is for a schedule... Start Date: 09/29/23 Status: Ordered hydrochlorothiazide-olmesartan 25 mg-40 mg oral tablet 0.5 tablet, By Mouth, Daily, # 15 tablet, 4 Refills, Maintenance, 08/07/23 15:23:00 EDT, Tablet, [facility]/pharmacy #[id number], decrease dose, 0.5 tablet By Mouth Daily, 167.6, cm, 08/05/23 9:50:00 EDT, Height Start Date: 08/07/23 Status: Ordered hydrOXYzine pamoate 25 mg oral capsule 1 capsule = 25 mg, By Mouth, 4 times a day, PRN for anxiety, # 120 capsule, 0 Refills, Maintenance,09/11/23 19:24:00 EDT, Capsule, [facility]/pharmacy #[id number], Partial fill upon patient request if the prescription is for a schedule II opioid drug., 167.6, cm,... Start Date: 09/11/23 Status: Ordered Lidoderm 5% film 2 patch, Topically, Daily, remove patches after 12 hours; 2 patches to pain areas; can cut patches in half; do not excede 2 patches., # 60 patch, 4 Refills, Maintenance, 03/06/23 15:42:00 EDT, [facility]/pharmacy #[id number], Partial fill upon patient request if t... Start Date: 03/06/23 Stop Date: 08/03/23 Status: Ordered meloxicam 7.5 mg oral tablet 1 tablet = 7.5 mg, By Mouth, Daily, Talke with acetaminophen, # 14 tablet, 0 Refills, Maintenance, 08/25/23 16:16:00 EDT, Tablet, [facility], Partial fill upon patient [...] 4 Refills, Maintenance, 07/28/23 16:46:00 EDT, Tablet, [facility]/pharmacy #[id number], Partial fill upon patient request if the prescription is for a schedule II opioid drug., 167.6, cm, 07/03/23 18:10:00 EST, Height Start Date: 07/28/23 Status: Ordered oxyCODONE 5 mg oral tablet 5 mg, 1, tablet, By Mouth, 4 times a day, PRN, [employer] checked, [facility] opioid agreement; d/c Tramadol, # 112 tablet, Refills 0, Tot. Refills 0, Maintenance, for pain, 09/24/23 14:13:00 EDT, Route to Pharmacy Electronically, [facility]/pharmacy #[id number], Partial f... Start Date: 09/24/23 Stop Date: 10/22/23 Status: Ordered pantoprazole 40 mg oral delayed [...] Refills, Maintenance, 07/03/23 18:52:00 EST, REC Powder, [facility], Partial fill upon patient request if the prescription is for a schedule II opioid drug., 17 Gm... Start Date: 07/03/23 Stop Date: 10/01/23 Status: Ordered Thera oral tablet 1 tablet, By Mouth, Daily, # 90 tablet, 3 Refills, Maintenance, 08/26/23 9:38:00 EDT, Tablet, [facility], Partial fill upon [...] 10/08/23 15:45:00 EDT, 09/10/23 15:45:00 EDT, Tablet, [facility], Partial fill upon patient... Start Date: 09/10/23 Stop Date: 10/08/23 Status: Ordered Vitamin D3 1000 intl units oral capsule 1 capsule = 25 mcg, By Mouth, Daily, # 90 capsule, 3 Refills, Maintenance, 07/03/23 19:05:00 EST, Capsule, [facility], Partial fill upon patient [...] pubis OA, left Confirmed Active *Catalina Diaz Contracts Specialist-[facility] [phone] Confirmed Active Depression, Mild recurrent major Confirmed [...] Team Personnel Name: Jaky Nicole RN Position: [facility] RN Member Role: Primary Care Nurse Name: Rhea Brooks Position: [facility] RN Member Role: Primary Care Nurse Name: Shala Shields MD Position: [facility] Physician - Primary Care Member Role: PCP Address: Address: [address] [place] [address] [place] [address]- Name: Kassi Wang RN Position: [facility] RN Member Role: Primary Care Nurse Name: Isabell David RN Position: [facility] ERNESTO Office Staff Member Role: Primary Care Nurse Care Team Related Persons Name: REYES OSHEA Address: home [address] [place] [id number] Name: SHANIKA ZAVALA Address: home [address] [place] [address]
--- OUTSIDE RECORDS SUMMARY | 2023-11-18 06:44 | XMS_ITS | Continuity of Care Document ---
Author Organization [facility] Address [address] [place] [address]- Care Team Providers Care Dye Can Operator Name Role Phone Cornelius REDDY, Shala Kuo Primary Care Physician [facility] Date[facility]s): 04[facility]21 - 05/17/21 [facility] [address] [place] [id number] Attending Physician: Jairo Ochoa Admitting Physician: Admtr, Jairo Referring Physician: Admtr, [...] GIVEN DATED: 11/18/11 8Admin Note: VIS GIVEN CHADIAN 2011-04 9Admin Note: vis given vis date 12/26/2009 10Admin Note: Prevnar 11Admin Note: VIS GIVEN VIS DATE 03/26 Medications Bactrim DS 800 mg-160 mg oral tablet 1 tablet, By Mouth, Daily, # 30 tablet, 5 Refills, Maintenance, 01/25/21 10:04:00 EDT, Tablet, [facility], Partial [...] mL, 11 Refills, Maintenance, 02/02/21 17:36:00 EDT, [facility], replaced tablets by suspension, 167.6, cm, 02/02/21 13:00:00 EDT, Height, 69.3, kg, 02/02/21 13:00... Start Date: 02/02/21 Stop Date: 01/04/22 Status: Ordered Colace sodium 100 mg oral capsule 100 mg, 1, capsule, By Mouth, 2 times a day, PRN, # 60 capsule, Refills 11, Tot. Refills 11, Maintenance, for constipation, 02/08/21 20:01:00 EDT, Route to Pharmacy Electronically, [facility]/pharmacy #[id number], Partial fill upon patient request if the [...] opioid drMichelle Start Date: 02/08/21 Status: Ordered mirtazapine 15 mg oral tablet 1 tablet = 15 mg, By Mouth, Daily at bedtime, # 30 tablet, 4 Refills, Maintenance, 02/19/21 16:53:00 EDT, Tablet, [facility], increase dose, 167.6, cm, 02/19/21 16:01:00 EDT, Height,69.3, kg, 02/02/21 13:00:00 EDT, Dry Weight Start Date: 02/19/21 Stop Date: 07/19/21 Status: Ordered [facility] Rx Refills 0, Maintenance, [...] Route to Pharmacy Electronically, [facility]/pharmacy #[id number], 167.6, cm, 02/02/21 13:00:00 EDT, [...] 11 Refills, Maintenance, 03/09/21 16:13:00 EDT, Tablet, [facility], Partial fill upon patient [...] Route to Pharmacy Electronically, [facility]/pharmacy #[id number], Partial fill upon patient request if the [...]
--- OUTSIDE RECORDS SUMMARY | 2023-11-18 06:44 | XMS_ITS | Continuity of Care Document ---
Author Organization [facility] Address [address] [place] [address]- Care Team Providers Care Projection Camera Operator Name Role Phone Shala Shields MD Primary Care Physician [facility] 02[facility]22 - 03/21/22 [facility] [address], [place] [address] Allergies, Adverse Reactions, [...] GIVEN DATED: 11/18/11 8Admin Note: VIS GIVEN SRI LANKAN 2011-04 9Admin Note: vis given vis date 12/26/2009 10Admin Note: Prevnar 11Admin Note: VIS GIVEN VIS DATE 03/26 Medications acetaminophen 325 mg oral tablet 650 mg, 2, tablet, By Mouth, 3 times a day, PRN, # 180 tablet, Refills 11, Tot. Refills 11, Maintenance, as needed for fever, 01/28/22 14:53:00 EDT, Route to Pharmacy Electronically, [facility], Partial fill upon patient request if [...] mL, 11 Refills, Maintenance, 02/02/21 17:36:00 EDT, [facility], replaced tablets by suspension, 167.6, cm, 02/02/21 13:00:00 EDT, Height, 69.3, kg, 02/02/21 13:00... Start Date: 02/02/21 Stop Date: 01/04/22 Status: Ordered Colace sodium 100 mg oral capsule 100 mg, 1, capsule, By Mouth, 2 times a day, PRN, # 60 capsule, Refills 11, Tot. Refills 11, Maintenance, for constipation, 02/08/21 20:01:00 EDT, Route to Pharmacy Electronically, [facility]/pharmacy #[id number], Partial fill upon patient request if the prescript... Start Date: 02/08/21 Status: Ordered darunavir 800 mg oral tablet 1 tablet = 800 mg, By Mouth, Daily, with food, please get labs before refills, # 90 tablet, 3 Refills, Maintenance, 11/28/21 12:11:00 EDT, Tablet, [facility], Partial fill upon patient request if the prescription is for a schedule II... Start Date: 11/28/21 Status: Ordered diclofenac 1% topical gel 1 application, Topically, 4 times a day, # 100 Gm, 11 Refills, Maintenance, 12/06/21 19:06:00 EDT, Gel, [facility]/pharmacy #[id number], Partial fill upon patient request if the prescription is for a schedule II opioid drug., 167.6, cm, 12/06/21 18:07:00 EDT, [place]... Start Date: 12/06/21 Status: Ordered duloxetine 60 mg oral enteric coated capsule 1 capsule = 60 mg, By Mouth, Daily, # 30 capsule, 11 Refills, Maintenance, 03/05/22 12:42:00 EDT, EC Capsule, [facility], Partial fill upon patient request if the prescription is fora schedule II opioid drug., 167.6, cm, 03/05/22 9:5... Start Date: 03/05/22 Status: Ordered ferrous sulfate 325 mg oral enteric coated tablet 325 mg, 1, tablet, By Mouth, Every other day, # 30 tablet, Refills 11, Tot. Refills 11, Maintenance, 12/06/21 19:06:00 EDT, Route to Pharmacy Electronically, [facility]/pharmacy #[id number], Partial fill upon patient request if the prescription is for a schedule I... Start Date: 12/06/21 Status: Ordered Genvoya oral tablet 1 tablet, By Mouth, Daily, with food, please get labs before refills, # 90 tablet, 3 Refills, Maintenance, 11/28/21 12:10:00 EDT, Tablet, [facility], Partial fill upon patient request if the prescription is for a schedule II opioid dr... Start Date: 11/28/21 Status: Ordered hydrochlorothiazide-lisinopril 25 mg-20 mg oral tablet 1 tablet, By Mouth, Daily, please get labs before refills, # 30 tablet, 11 Refills, Maintenance, 01/28/22 14:55:00 EDT, Tablet, [facility], d/c lisinopril 40 mg - change to combo med, 1 tablet By Mouth Daily,Instr:please get labs befo... Start Date: 01/28/22 Status: Ordered metroNIDAZOLE 0.75% topical gel 1 applicator, Vaginally, Daily, # 70 Gm, 0 Refills, Maintenance, 11/20/21 14:08:00 EDT, [facility], Partial fill upon patient request if [...] 11 Refills, Maintenance, 03/09/21 16:13:00 EDT, Tablet, [facility], Partial fill upon patient request if the prescription is for a schedule IIopioid drug., 1 tablet By Mouth Daily, 167.6, cm, 1... Start Date: 03/09/21 Status: Ordered Wellbutrin XL 150 mg/24 hours oral tablet, extended release 1 tablet = 150 mg, By Mouth, Every 24 hours, # 30 tablet, 4 Refills, Maintenance, 03/05/22 12:43:00EDT, ER Tablet, [facility], Partial fill upon patient request [...] Iron deficiency anemia Confirmed Active *Catalina Diaz Athletics Director-[facility] [phone] Confirmed Active Mild recurrent major depression Confirmed Active Urinary incontinence Confirmed Active 1EGD 07/2010 - likely apthous ulcers with very morbid 2 weeks of weight loss and requiring IV fluids Social History Social History Type Response Smoking Status Never smoker; Tobacc o user in household: No entered on: 01/26/15 Sex Patient Care team information Personnel Name: Cornelius REDDY, Shala Kuo Address: Address: [address] [place] [address], C-Level [facility] [place], [place] [address]
--- OUTSIDE RECORDS SUMMARY | 2023-11-18 06:44 | XMS_ITS | Continuity of Care Document ---
Author Organization [facility] Address [address] [place] [address]- Care Team Providers Care Sqe Name Role Phone Timmy MERCER, Daphney Heard Primary Care Physician [facility]): 04/[facility]19 - 08/27/[address] [address] Attending Physician: Sara Mendez CNM Admitting Physician: Sara Mendez CNM Allergies, Adverse Reactions, Alerts Substance Reaction Severity [...] 2 Refills, Maintenance, 05/18/19 11:15:00 EST, Tablet, [facility]., Please deliver, 170, cm, 04/21/19 16:03:00 EST, Height Start Date: 05/18/19 Stop Date: 08/16/19 Status: Ordered doxepin 25 mg oral capsule 3 capsule = 75 mg, By Mouth, Daily at bedtime, Please fill today, # 90 capsule, 5 Refills, Maintenance, 05/18/19 11:13:00 EST, Capsule, [facility] 170, cm, 04/21/19 16:03:00 EST, Height Start Date: 05/18/19 Stop Date: 11/14/19 Status: Ordered ferrous gluconate 324 mg (37.5 mg elemental iron) oral tablet 1 tablet = 324 mg, By Mouth, 2 times a day, # 60 tablet, 1 Refills, Maintenance, 05/20/19 13:38:00 EST, Tablet, [facility]/pharmacy #[id number], 170, cm, 04/21/19 [...] Refills, Maintenance, 05/18/19 11:15:00 EST, Tablet, [facility], Please deliver, 1 tablet By Mouth [...] 11:13:00 EST, Route to Pharmacy Electronically, [facility], Please fill today, 170, cm, 04/21/19 [...] Date: 05/15/19 Status: Ordered polymyxin B-trimethoprim ophthalmic 03553 u-1 mg/ml solution 1 drops, Eye, Right, Every 3 hours, for 7 days, # 10 mL, 0 Refills, Acute 09/03/19 16:16:00 EDT, 08/27/19 16:16:00 EDT, [facility]/pharmacy #[id number], 1 drops Eye, Right Every 3 hours,x7 days, 170, cm, 04/21/1916:03:00 EST, Height Start Date: 08/27/19 Stop Date: 09/03/19 Status: Ordered Provera 10 mg oral tablet 10 mg, 1, tablet, By Mouth, Daily, # 30 tablet, Refills 0, Tot. Refills 0, Maintenance, 04/21/19 16:44:15 EST, Route to Pharmacy Electronically, [id number], [facility], 170, cm, 04/21/19 16:03:00 EST, Height Start Date: 04/21/19 Status: Ordered Vitamin D 99586 iu oral capsule 50,000 International_Units, 1, capsule, By Mouth, Every week, # 5 capsule, Refills 2, Tot. Refills 2, Maintenance, 05/18/19 11:14:00 EST, Route to Pharmacy Electronically, [facility],170, cm, 04/21/19 16:03:00 EST, Height Start [...]
--- OUTSIDE RECORDS SUMMARY | 2023-11-18 06:44 | XMS_ITS | Continuity of Care Document ---
Author Organization [facility] Address [address] [place] [address]- Care Team Providers Care Electric Mule Operator Name Role Phone Shala Shields MD Primary Care Physician [phone] [facility]): 03[facility]23 - 04/29/[address] [address] Attending Physician: Sahla Shields MD Admitting Physician: Shala Shields MD Referring Physician: Shala Shields MD Allergies, Adverse Reactions, Alerts Substance Reaction Severity Status azithromycin 1 Persistent Mild Active rifabutin Rash Persistent Moderate Active amLODIPine 2 Active 1Rash 2Had Lower extremity ankle swelling with 10mg. Immunizations Given and Recorded Vaccine Date Status Refusal Reason SARS-CoV-2 (COVID-19) mRNA-1278 vaccine 04/04/22 G iven influenza virus vaccine, [...] GIVEN DATED: 11/18/11 8Admin Note: VIS GIVEN CHILEAN 2011-04 9Admin Note: vis given vis date 12/26/2009 10Admin Note: Prevnar 11Admin Note: VIS GIVEN VIS DATE 03/26 Medications acetaminophen 325 mg oral tablet 650 mg, 2, tablet, By Mouth, 3 times a day, PRN, # 540 tablet, Refills 3, Tot. Refills 3, Maintenance, as needed for fever, 02/20/23 13:39:00 EDT, Route to Pharmacy Electronically, [facility], Partial fill upon patient request if the prescri... Start Date: 02/20/23 Status: Ordered Bactrim 400 mg-80 mg oral tablet 1 tablet, By Mouth, Daily, BUBBLE PACK, # 90 tablet, 1 Refills, Maintenance, 02/20/23 13:37:00 EDT,Tablet, [facility], Partial fill upon patient request if [...] mL, 11 Refills, Maintenance, 09/18/22 15:52:00 EDT, [facility], replaced tablets by suspension, 167.6, cm, 07/04/22 16:00:00 EST, Height, 69.3, kg, 02/02/21 13:00... Start Date: 09/18/22 Stop Date: 08/20/23 Status: Ordered Colace sodium 100 mg oral capsule 100 mg, 1, capsule, By Mouth, 2 times a day, PRN, # 60 capsule, Refills 11, Tot. Refills 11, Maintenance, for constipation, 02/20/23 13:39:00 EDT, Route to Pharmacy Electronically, [facility], Partial fill upon patient request if the prescri... Start Date: 02/20/23 Status: Ordered darunavir 800 mg oral tablet 1 tablet = 800 mg, By Mouth, Daily, with food, please get labs before refills; BUBBLE PACK, # 90 tablet, 1 Refills, Maintenance, 04/25/23 11:55:00 EST, Tablet, [facility], Partial fill upon patient request if the prescription is for a... Start Date: 04/25/23 Status: Ordered diclofenac 1% topical gel 1 application, Topically, 4 times a day, # 100 Gm, 11 Refills, Maintenance, 09/18/22 15:52:00 EDT, Gel, [facility], Partial fill upon patient request if [...] Refills, Maintenance, 02/20/23 13:46:00 EDT, EC Capsule, [facility], Partial fill upon patient request if... Start Date: 02/20/23 Status: Ordered ferrous sulfate 325 mg oral enteric coated tablet 325 mg, 1, tablet, By Mouth, Every other day, BUBBLE PACK, # 45 tablet, Refills 3, Tot. Refills 3, Maintenance, 02/20/23 13:37:00 EDT, Route to Pharmacy Electronically, [facility], Partial fill upon patient request if the prescription is for... Start Date: 02/20/23 Status: Ordered Genvoya oral tablet 1 tablet, By Mouth, Daily, with food, please get labs before refills; BUBBLE PACK, # 90 tablet, 1 Refills, Maintenance, 04/25/23 11:55:00 EST, Tablet, [facility], Partial fill upon patient request if the prescription is for a schedule... Start Date: 04/25/23 Status: Ordered hydrochlorothiazide-olmesartan 25 mg-40 mg oral tablet 1 tablet, By Mouth, Daily, BUBBLE PACK, # 90 tablet, 3 Refills, Maintenance, 02/20/23 13:37:00 EDT,Tablet, [facility], d/c HCTZ/lisinopril, 1 tablet By Mouth Daily,Instr:BUBBLE PACK, 167.6, cm, 12/23/22 8:35:00 EDT, Height Start Date: 02/20/23 Status: Ordered Lidoderm 5% film 2 patch, Topically, Daily, remove patches after 12 hours; 2 patches to pain areas; can cut patches in half; do not excede 2 patches., # 60 patch, 4 Refills, Maintenance, 03/06/23 15:42:00 EDT, [facility]/pharmacy #[id number], Partial fill upon patient request if t... Start Date: 03/06/23 Stop Date: 08/03/23 Status: Ordered MetroGel 1% topical gel 1 application, Topically, Daily, PRN facial rash, # 60 Gm, 11 Refills, Maintenance, 12/23/22 8:40:00 EDT, Gel, [facility], Partial fill upon patient request if the prescription is for a schedule II opioid drug., 1 application Topicall... Start Date: 12/23/22 Status: Ordered MiraLax oral powder for reconstitution = 17 Gm, By Mouth, Daily, PRN Constipation, dissolve in water before taking, # 527 Gm, 11 Refills, Maintenance, 02/20/23 13:39:00 EDT, REC Powder, [facility], Partial fill upon patient request if the prescription is for a schedule II opioid... Start Date: 02/20/23 Status: Ordered [facility] Rx Refills [...] Refills, Soft Stop, 12/23/22 8:46:00 EDT, Powder, [facility], Partial fill upon patient request if the prescription is for a schedule II opioid drug., 0.5 mL Int... 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-[facility] [phone] Confirmed Active Mild recurrent major depression Confirmed [...] Primary Care Member Role: PCP Address: Address: [address] [place] [address] [place] [address]- Name: Kassi Wang RN Position: S RN Member Role: Primary Care Nurse Name: Isabell David RN Position: [facility] SN RN Member Role: Primary Care Nurse Care Team Related Persons Name: REYES OSHEA Address: home [address] [place] [id number] Name: SHANIKA ZAVALA Address: home [address] [place] [address]
--- OUTSIDE RECORDS SUMMARY | 2023-11-18 06:44 | XMS_ITS | Continuity of Care Document ---
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 Immunizations Given and Recorded Vaccine Date Status Refusal Reason SARS-CoV-2 (COVID-19) mRNA-4057 vaccine 04/04/22 G iven influenza virus vaccine, [...] 02/20/23 13:39:00 EDT, Route to Pharmacy Electronically, [facility], Partial fill upon patient request if the prescri... Start Date: 02/20/23 Status: Ordered Bactrim 400 mg-80 mg oral tablet 1 tablet, By Mouth, Daily, BUBBLE PACK, # 90 tablet, 1 Refills, Maintenance, 02/20/23 13:37:00 EDT,Tablet, [facility], Partial fill upon patient request if [...] 02/20/23 13:39:00 EDT, Route to Pharmacy Electronically, [facility], Partial fill upon patient request if the prescri... Start Date: 02/20/23 Status: Ordered darunavir 800 mg oral tablet 1 tablet = 800 mg, By Mouth, Daily, with food, please get labs before refills; BUBBLE PACK, # 90 tablet, 1 Refills, Maintenance, 04/25/23 11:55:00 EST, Tablet, [facility], Partial fill upon patient request if the prescription is for a... Start Date: 04/25/23 Status: Ordered diclofenac 1% topical gel 1 application, Topically, 4 times a day, # 100 Gm, 11 Refills, Maintenance, 09/18/22 15:52:00 EDT, Gel, [facility], Partial fill upon [...] Refills, Maintenance, 07/03/23 19:03:00 EST, EC Capsule, [facility], Partial fill upon patient request if the... Start Date: 07/03/23 Status: Ordered ferrous sulfate 325 mg oral enteric coated tablet 325 mg, 1, tablet, By Mouth, Every other day, BUBBLE PACK, # 45 tablet, Refills 3, Tot. Refills 3, Maintenance, 02/20/23 13:37:00 EDT, Route to Pharmacy Electronically, [facility], Partial fill upon patient request if the prescription is for... Start Date: 02/20/23 Status: Ordered gabapentin 100 mg oral capsule 100 mg, 1, capsule, By Mouth, Daily at bedtime, PRN, # 30 capsule, Refills 4, Tot. Refills 4, Maintenance, Anxiety, 08/05/23 10:19:00 EDT, Route to Pharmacy Electronically, [facility], Partial fill upon patient request if the prescrip... Start Date: 08/05/23 Stop Date: 08/12/23 Status: Ordered Genvoya oral tablet 1 tablet, By Mouth, Daily, with food, please get labs before refills; BUBBLE PACK, # 90 tablet, 1 Refills, Maintenance, 04/25/23 11:55:00 EST, Tablet, [facility], Partial fill upon patient request if the prescription is for a schedule... Start Date: 04/25/23 Status: Ordered hydrochlorothiazide-olmesartan 25 mg-40 mg oral tablet 0.5 tablet, By Mouth, Daily, # 15 tablet, 4 Refills, Maintenance, 08/07/23 15:23:00 EDT, Tablet, [facility]/pharmacy #[id number], decrease dose, 0.5 tablet By Mouth Daily, 167.6, cm, 08/05/23 9:50:00 EDT, Height Start Date: 08/07/23 Status: Ordered Lidoderm 5% film 2 patch, Topically, Daily, remove patches after 12 hours; 2 patches to pain areas; can cut patches in half; do not excede 2 patches., # 60 patch, 4 Refills, Maintenance, 03/06/23 15:42:00 EDT, [facility]/pharmacy #[id number], Partial fill upon patient request if t... Start Date: 03/06/23 Stop Date: 08/03/23 Status: Ordered [facility] Rx Refills 0, Maintenance, Calcium/Mg/ Zinc 1 tablet daily, 01/23/21 17:47:00 EDT, Supply Start Date: 01/23/21 Status: Ordered naltrexone 50 mg oral tablet 1 tablet = 50 mg, By Mouth, Daily, # 30 tablet, 4 Refills, Maintenance, 07/28/23 16:46:00 EDT, Tablet, [facility]/pharmacy #[id number], Partial fill upon patient [...] Refills, Maintenance, 07/03/23 18:52:00 EST, REC Powder, [facility], Partial fill upon patient request if the prescription is for a schedule II opioid drug., 17 Gm... Start Date: 07/03/23 Stop Date: 10/01/23 Status: Ordered Thera oral tablet 1 tablet, By Mouth, Daily, BUBBLE PACK, # 90 tablet, 3 Refills, Maintenance, 02/20/23 13:37:00 EDT,Tablet, [facility], Partial fill upon patient request if the prescription is for a schedule II opioid drug., 1 tablet By Mouth Daily,Instr:BU... 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 Sex Patient Care team information Care Team Personnel Name: Jaky Nicole RN Position: [facility] RN Member Role: Primary Care Nurse Name: Rhea Brooks Position: [facility] RN Member Role: Primary Care Nurse Name: Shala Shields MD Position: [facility] Physician - Primary Care Member Role: PCP Address: Address: [address] [place] [address] [place] [address]- [place] Name: Felipe GRANT, Kassi Position: S RN Member Role: Primary Care Nurse Care Team Related Persons Name: REYES OSHEA Address: home [address] [address] Name: SHANIKA ZAVALA Address: home [address] [place] [address]
--- OUTSIDE RECORDS SUMMARY | 2023-11-18 06:44 | XMS_ITS | Continuity of Care Document ---
Author Organization [facility] Address [address] [place] [address]- Care Team Providers Care Corporate Director Talent Assessment Name Role Phone Shala Shields MD Primary Care Physician Encounter [facility] Date(s): 05/22/22 - 07/27/22 [facility] [address] [place] [address]- Attending Physician: Shala Shields MD Admitting Physician: [...] GIVEN DATED: 11/18/11 8Admin Note: VIS GIVEN SAUDI ARABIAN 2011-04 9Admin Note: vis given vis date 12/26/2009 10Admin Note: Prevnar 11Admin Note: VIS GIVEN VIS DATE 03/26 Medications acetaminophen 325 mg oral tablet 650 mg, 2, tablet, By Mouth, 3 times a day, PRN, # 180 tablet, Refills 11, Tot. Refills 11, Maintenance, as needed for fever, 01/28/22 14:53:00 EDT, Route to Pharmacy Electronically, [facility], Partial fill upon patient request if [...] mL, 11 Refills, Maintenance, 03/29/22 11:16:00 EST, [facility], replaced tablets by suspension, 167.6, cm, 03/05/22 9:57:00 EDT, Height, 69.3, kg, 02/02/21 13:00:... Start Date: 03/29/22 Stop Date: 02/28/23 Status: Ordered Colace sodium 100 mg oral capsule 100 mg, 1, capsule, By Mouth, 2 times a day, PRN, # 60 capsule, Refills 11, Tot. Refills 11, Maintenance, for constipation, 03/29/22 11:16:00 EST, Route to Pharmacy Electronically, [facility], Partial fill upon patient request if the... Start Date: 03/29/22 Status: Ordered darunavir 800 mg oral tablet 1 tablet = 800 mg, By Mouth, Daily, with food, please get labs before refills, # 90 tablet, 3 Refills, Maintenance, 11/28/21 12:11:00 EDT, Tablet, [facility], Partial fill upon patient request if the prescription is for a schedule II... Start Date: 11/28/21 Status: Ordered diclofenac 1% topical gel 1 application, Topically, 4 times a day, # 100 Gm, 11 Refills, Maintenance, 12/06/21 19:06:00 EDT, Gel, [facility]/pharmacy #[id number], Partial fill upon patient request if the prescription is for a schedule II opioid drug., 167.6, cm, 12/06/21 18:07:00 EDT, [place]... Start Date: 12/06/21 Status: Ordered duloxetine 60 mg oral enteric coated capsule 1 capsule = 60 mg, By Mouth, Daily, # 30 capsule, 11 Refills, Maintenance, 03/05/22 12:42:00 EDT, EC Capsule, [facility], Partial fill upon patient request if the prescription is fora schedule II opioid drug., 167.6, cm, 03/05/22 9:5... Start Date: 03/05/22 Status: Ordered ferrous sulfate 325 mg oral enteric coated tablet 325 mg, 1, tablet, By Mouth, Every other day, # 30 tablet, Refills 11, Tot. Refills 11, Maintenance, 12/06/21 19:06:00 EDT, Route to Pharmacy Electronically, [facility]/pharmacy #[id number], Partial fill upon patient request if the prescription is for a schedule I... Start Date: 12/06/21 Status: Ordered Genvoya oral tablet 1 tablet, By Mouth, Daily, with food, please get labs before refills, # 90 tablet, 3 Refills, Maintenance, 11/28/21 12:10:00 EDT, Tablet, [facility], Partial fill upon patient request if the prescription is for a schedule II opioid dr... Start Date: 11/28/21 Status: Ordered hydrochlorothiazide-olmesartan 25 mg-40 mg oral tablet 1 tablet, By Mouth, Daily, # 30 tablet, 4 Refills, Maintenance, 04/04/22 19:39:00 EST, Tablet, [facility], d/c HCTZ/lisinopril, 1 tablet By Mouth Daily, 167.6, cm, 04/04/22 19:29:00 EST, Height, 69.3, kg, 02/02/21 13:00:00 EDT, Dry We... Start Date: 04/04/22 Status: Ordered metroNIDAZOLE 0.75% topical gel 1 applicator, Vaginally, Daily, # 70 Gm, 0 Refills, Maintenance, 11/20/21 14:08:00 EDT, [facility], Partial fill upon patient request if the prescription is for a schedule II opioid drug., 1 applicator Vaginally Daily,x5 days, 167.6,... Start Date: 11/20/21 Stop Date: 11/25/21 Status: Ordered MiraLax oral powder for reconstitution = 17 Gm, By Mouth, Daily, PRN Constipation, dissolve in water before taking, # 527 Gm, 11 Refills, Maintenance, 03/29/22 11:16:00 EST, REC Powder, [facility], Partial fill upon patient request if the prescription is for a schedule II... Start Date: 03/29/22 Status: Ordered mirtazapine 15 mg oral tablet 1 tablet = 15 mg, By Mouth, Daily at bedtime, please get labs before refills, # 30 tablet, 11 Refills, Maintenance, 03/28/22 20:40:00 EST, Tablet, [facility], increase dose, 167.6, cm, 03/05/22 9:57:00 [...] Refills, Soft Stop, 06/06/22 10:12:00 EST, Powder[facility] Partial fill upon patient request if the prescription is for a schedule II opioid drug., 0.5 mL Int... Start Date: 06/06/22 Status: Ordered Thera oral tablet 1 tablet, By Mouth, Daily, # 30 tablet, 11 Refills, Maintenance, 03/29/22 11:15:00 EST, Tablet, [facility], Partial fill upon patient request if the prescription is for a schedule IIopioid drug., 1 tablet By Mouth Daily, 167.6, cm, 1... Start Date: 03/29/22 Status: Ordered Wellbutrin XL 300 mg/24 hours oral tablet, extended release 1 tablet = 300 mg, By Mouth, Daily, # 30 tablet, 4 Refills, Maintenance, 04/04/22 19:36:00 EST, ER Tablet, [facility], Partial fill upon patient request if the prescription is for a schedule II opioid drug., 167.6, cm, 04/04/22 19:29:... 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[facility] [phone] Confirmed Active Mild recurrent major depression Confirmed Active Urinary incontinence Confirmed Active 1EGD 07/2010 - likely apthous ulcers with very morbid 2 weeks of weight loss and requiring IV fluids Social History Social History Type Response Smoking Status Never smoker; Tobacc o user in household: No entered on: 01/26/15 Sex Patient Care team information Care Team Personnel Name: Jaky Nicole RN Position: [facility] RN Member Role: Primary Care Nurse Name: Rhea Heard Position: [facility] RN Member Role: Primary Care Nurse Name: Shala Shields MD Position: [facility] Primary Care Physician Member Role: PCP Address: Address: [address] [place] [address], [place] [address]- Name: Kassi Wang RN Position: [facility] RN Member Role: Primary Care Nurse Name: Isabell David RN Position: [facility] SN RN Member Role: Primary Care Nurse Care Team Related Persons Name: REYES OSHEA Address: home [address] [place] [id number] Name: SHANIKA ZAVALA Address: home [address] [place] [address]
--- OUTSIDE RECORDS SUMMARY | 2023-11-18 06:44 | XMS_ITS | Continuity of Care Document ---
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 Start Date: 02/20/23 Status: Ordered Bactrim 400 mg-80 mg oral tablet 1 tablet, By Mouth, Daily, BUBBLE PACK, # 90 tablet, 1 Refills, Maintenance, 02/20/23 13:37:00 EDT,Tablet, [facility], Partial fill upon patient request if [...] mL, 11 Refills, Maintenance, 09/18/22 15:52:00 EDT, [facility], replaced tablets by [...] 1 Refills, Maintenance, 02/20/23 13:39:00 EDT, Tablet, [facility], Partial fill uponpatient request if the prescription is for a schedu... Start Date: 02/20/23 Status: Ordered diclofenac 1% topical gel 1 application, Topically, 4 times a day, # 100 Gm, 11 Refills, Maintenance, 09/18/22 15:52:00 EDT, Gel, [facility], Partial fill upon patient request if the prescription is for a schedule II opioid drug., 167.6, cm, 07/04/22 16:00:00... Start Date: 09/18/22 Status: Ordered duloxetine 30 mg oral enteric coated capsule 1 capsule = 30 mg, By Mouth, Daily, start with duloxetine 30mg daily x 2 weeks then duloxetine 60mgdaily; BUBBLE PACK, # 14 capsule, 0 Refills, Maintenance, 02/20/23 13:46:00 EDT, [facility], Partial fill upon patient request if the prescri... Start Date: 02/20/23 Stop Date: 03/06/23 Status: Ordered duloxetine 60 mg oral enteric coated capsule 1 capsule = 60 mg, By Mouth, Daily, start with duloxetine 30mg daily x 2 weeks then duloxetine 60mgdaily; BUBBLE PACK, # 30 capsule, 4 Refills, Maintenance, 02/20/23 13:46:00 EDT, EC Capsule, [facility], Partial fill upon patient request if... Start Date: 02/20/23 Status: Ordered ferrous sulfate 325 mg oral enteric coated tablet 325 mg, 1, tablet, By Mouth, Every other day, BUBBLE PACK, # 45 tablet, Refills 3, Tot. Refills 3, Maintenance, 02/20/23 13:37:00 EDT, Route to Pharmacy Electronically, [facility], Partial fill upon patient request if the prescription is for... Start Date: 02/20/23 Status: Ordered Genvoya oral tablet 1 tablet, By Mouth, Daily, with food, please get labs before refills; BUBBLE PACK, # 90 tablet, 1 Refills, Maintenance, 02/20/23 13:39:00 EDT, Tablet, [facility], Partial fill upon patient request if the prescription is for a schedule II opi... Start Date: 02/20/23 Status: Ordered hydrochlorothiazide-olmesartan 25 mg-40 mg oral tablet 1 tablet, By Mouth, Daily, BUBBLE PACK, # 90 tablet, 3 Refills, Maintenance, 02/20/23 13:37:00 EDT,Tablet, [facility], d/c HCTZ/lisinopril, 1 tablet By Mouth Daily,Instr:BUBBLE ELANA, 167.6, cm, 12/23/22 8:35:00 EDT, Height Start Date: 02/20/23 Status: Ordered Lidoderm 5% film 2 patch, Topically, Daily, remove patches after 12 hours; 2 patches to pain areas; can cut patches in half; do not excede 2 patches., # 60 patch, 4 Refills, Maintenance, 03/06/23 15:42:00 EDT, [facility]/pharmacy #[id number], Partial fill upon patient request if t... 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-[facility] [phone] Confirmed Active Mild recurrent major depression Confirmed [...] Team Personnel Name: Jaky Nicole RN Position: [facility] RN Member Role: Primary Care Nurse Name: Rhea Heard Position: S RN Member Role: Primary Care Nurse Name: Shala Shields MD Position: [facility] Physician - Primary Care Member Role: PCP Address: Address: [address] [place] [address] [place] [address]- Name: Kassi Wang RN Position: S RN Member Role: Primary Care Nurse Name: Isabell David RN Position: [facility] SN RN Member Role: Primary Care Nurse Care Team Related Persons Name: OSHEA, REYES Address: home [address] [place] [id number] Name: SHANIKA ZAVALA Address: home [address] [place] [address]
--- OUTSIDE RECORDS SUMMARY | 2023-11-18 06:44 | XMS_ITS | Continuity of Care Document ---
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 Name Role Phone Maisha Lin DO Primary Care Physician Encounter [facility] Date(s): 02/15/20 - 03/16/20 [facility] [address] [place] [address]- [facility] Attending Physician: Janelle Guzman DO Admitting Physician: Janelle Guzman DO Allergies, Adverse Reactions, Alerts Substance Reaction [...] GIVEN DATED: 11/18/11 8Admin Note: VIS GIVEN IRISH 2011-12 9Admin Note: vis given vis date 12/26/2009 10Admin Note: Prevnar 11Admin Note: VIS GIVEN VIS DATE 03/26 Medications Bactrim DS 800 mg-160 mg oral tablet 1 tablet, By Mouth, Daily, for 30 days, # 30 tablet, 6 Refills, Acute 10/12/20 9:47:00 EDT, 03/16/20 9:47:00 EDT, Tablet, [facility], 1 tablet By [...] 03/16/20 Stop Date: 09/12/20 Status: Ordered ergocalciferol 09739 iu oral capsule 50,000 International_Units, 1, capsule, By Mouth, Every week, # 5 capsule, Refills 1, Tot. Refills 1, Maintenance, 03/16/20 9:45:00 EDT, Route to Pharmacy Electronically, [facility],168, cm, 03/16/20 8:08:00 EDT, Height, 71.6, kg, 09... Start Date: 03/16/20 Stop Date: 05/15/20 Status: Ordered ferrous gluconate 324 mg (37.5 mg elemental iron) oral tablet 1 tablet = 324 mg, By Mouth, 2 times a day, # 60 tablet, 1 Refills, Maintenance, 03/16/20 9:45:00 EDT, Tablet, [facility], [...] Refills, Soft Stop, 03/16/20 8:57:00 EDT, Suspension, [facility] 0.5 mL Intramuscular Once, 168, cm, 03/16/20 8:08:00 EDT, Height, 71.6, kg, 02/11/20 4:57:00 EDT, Dry Weight Start Date: 03/16/20 Status: Ordered lisinopril 20 mg oral tablet 20 mg, 1, tablet, By Mouth, Daily, # 30 tablet, Refills 5, Tot. Refills 5, Maintenance, 03/16/20 9:46:00 EDT, Route to Pharmacy Electronically, [facility], Please buble pack, 168, cm, 03/16/20 8:08:00 EDT, Height, 71.6, kg, 02/11/20 4... Start Date: 03/16/20 Stop Date: 09/12/20 Status: Ordered Norvasc 5 mg oral tablet 5 mg, 1, tablet, By Mouth, Daily, # 30 tablet, Refills 5, Tot. Refills 5, Maintenance, 03/16/20 9:40:00 EDT, Route to Pharmacy Electronically, [facility], Please bubble pack, 168, cm, 03/16/20 8:08:00 EDT, Height, 71.6, kg, 02/11/20 4... Start Date: 03/16/20 Stop Date: 09/12/20 Status: Ordered valganciclovir 450 mg oral tablet 900 mg, 2, tablet, By Mouth, Daily, for 14 days, # 28 tablet, Refills 0, Tot. Refills 0, Acute 03/30/20 9:02:00 EST, 03/16/20 9:02:00 EDT, Route to Pharmacy Electronically, [facility] [...]
--- OUTSIDE RECORDS SUMMARY | 2023-11-18 06:44 | XMS_ITS | Continuity of Care Document ---
Author Organization 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 [address] [place], [place] [address] Allergies, Adverse Reactions, Alerts Substance [...] 5 Refills, Maintenance, 01/25/21 10:04:00 EDT, Tablet, [facility], Partial fill [...] mL, 11 Refills, Maintenance, 02/02/21 17:36:00 EDT, [facility], replaced tablets by suspension, 167.6, cm, 02/02/21 13:00:00 EDT, Height, 69.3, kg, 02/02/21 13:00... Start Date: 02/02/21 Stop Date: 01/04/22 Status: Ordered Colace sodium 100 mg oral capsule 100 mg, 1, capsule, By Mouth, 2 times a day, PRN, # 60 capsule, Refills 11, Tot. Refills 11, Maintenance, for constipation, 02/08/21 20:01:00 EDT, Route to Pharmacy Electronically, [facility]/pharmacy #[id number], Partial fill upon patient request if the prescript... Start Date: 02/08/21 Status: Ordered darunavir 800 mg oral tablet 1 tablet = 800 mg, By Mouth, Daily, # 30 tablet, 5 Refills, Maintenance, 01/25/21 10:06:00 EDT, Tablet, [facility], Partial fill upon patient request if the prescription is for a schedule II opioid drug., 167.6, cm, 01/23/21 18:14:00... Start Date: 01/25/21 Status: Ordered ferrous sulfate 325 mg oral enteric coated tablet 325 mg, 1, tablet, By Mouth, Daily, # 30 tablet, Refills 11, Tot. Refills 11, Maintenance, 03/02/2112:59:00 EDT, Route to Pharmacy Electronically, [facility], Partial fill upon patient request if the prescription is for a schedule II... Start Date: 03/02/21 Status: Ordered Genvoya oral tablet 1 tablet, By Mouth, Daily, with food, # 30 tablet, 5 Refills, Maintenance, 01/25/21 9:51:00 EDT, Tablet, [facility], Partial fill upon patient request if the prescription is for a schedule II opioid drug., 1 tablet By Mouth Daily,Inst... Start Date: 01/25/21 Status: Ordered lisinopril 40 mg oral tablet 1 tablet = 40 mg, By Mouth, Daily, # 30 tablet, 11 Refills, Maintenance, 03/08/21 8:46:00 EDT, Tablet, [facility], Dose increased, 167.6, cm, 02/19/21 16:01:00 EDT, Height, 69.3, kg,02/02/21 13:00:00 EDT, Dry Weight Start Date: 03/08/21 Status: Ordered MiraLax oral powder for reconstitution = 17 Gm, By Mouth, Daily, PRN Constipation, dissolve in water before taking, # 527 Gm, 11 Refills, Maintenance, 02/08/21 20:01:00 EDT, REC Powder, [facility]/pharmacy #[id number], Partial fill upon patient request if the prescription is for a schedule II opioid dr... Start Date: 02/08/21 Status: Ordered mirtazapine 15 mg oral tablet 1 tablet = 15 mg, By Mouth, Daily at bedtime, # 30 tablet, 4 Refills, Maintenance, 02/19/21 16:53:00 EDT, Tablet, [facility], increase dose, 167.6, cm, 02/19/21 16:01:00 EDT, Height,69.3, kg, 02/02/21 13:00:00 EDT, Dry Weight Start Date: 02/19/21 Stop Date: 07/19/21 Status: Ordered [facility] Refills 0, Maintenance, Calcium/Mg/ Zinc 1 [...] 02/02/21 14:41:00 EDT, Route to Pharmacy Electronically, [facility]/pharmacy #[id number], 167.6, cm, 02/02/21 13:00:00 EDT, [...] 10:56:00 EDT, 12/19/20 10:56:00 EDT, REC Powder, [facility]/pharmacy #[id number], Partial fill upon patient request... Start Date: 12/19/20 Stop Date: 12/16/21 Status: Ordered Thera oral tablet 1 tablet, By Mouth, Daily, # 30 tablet, 11 Refills, Maintenance, 03/09/21 16:13:00 EDT, Tablet, [facility], Partial fill [...] 02/02/21 14:41:00 EDT, Route to Pharmacy Electronically, [facility]/pharmacy #[id number], Partial fill upon patient request if the [...]
--- OUTSIDE RECORDS SUMMARY | 2023-11-18 06:44 | XMS_ITS | Continuity of Care Document ---
Author Organization [facility] Address [address] [place] [address]- Care Team Providers Care General Duty Nurse Name Role Phone Shala Shields MD Primary Care Physician [phone] Encounter [facility] Date(s): 05/14/21 - 06/13/21 [facility] [address] [place] [address]- Allergies, Adverse Reactions, Alerts Substance Reaction Severity [...] GIVEN DATED: 11/18/11 8Admin Note: VIS GIVEN TONGAN 2011-04 9Admin Note: vis given vis date 12/26/2009 10Admin Note: Prevnar 11Admin Note: VIS GIVEN VIS DATE 03/26 Medications Bactrim DS 800 mg-160 mg oral tablet 1 tablet, By Mouth, Daily, # 30 tablet, 5 Refills, Maintenance, 01/25/21 10:04:00 EDT, Tablet, [facility], Partial fill upon patient [...] mL, 11 Refills, Maintenance, 02/02/21 17:36:00 EDT, [facility], replaced tablets by suspension, 167.6, cm, 02/02/21 13:00:00 EDT, Height, 69.3, kg, 02/02/21 13:00... Start Date: 02/02/21 Stop Date: 01/04/22 Status: Ordered Colace sodium 100 mg oral capsule 100 mg, 1, capsule, By Mouth, 2 times a day, PRN, # 60 capsule, Refills 11, Tot. Refills 11, Maintenance, for constipation, 02/08/21 20:01:00 EDT, Route to Pharmacy Electronically, [facility]/pharmacy #[id number], Partial fill upon patient request if the prescript... Start Date: 02/08/21 Status: Ordered darunavir 800 mg oral tablet 1 tablet = 800 mg, By Mouth, Daily, # 30 tablet, 5 Refills, Maintenance, 01/25/21 10:06:00 EDT, Tablet, [facility], Partial fill upon patient request if the prescription is for a schedule II opioid drug., 167.6, cm, 01/23/21 18:14:00... Start Date: 01/25/21 Status: Ordered ferrous sulfate 325 mg oral enteric coated tablet 325 mg, 1, tablet, By Mouth, Daily, # 30 tablet, Refills 11, Tot. Refills 11, Maintenance, 03/02/2112:59:00 EDT, Route to Pharmacy Electronically, [facility], Partial fill upon patient request if the prescription is for a schedule II... Start Date: 03/02/21 Status: Ordered Genvoya oral tablet 1 tablet, By Mouth, Daily, with food, # 30 tablet, 5 Refills, Maintenance, 01/25/21 9:51:00 EDT, Tablet, [facility], Partial fill upon patient request if the prescription is for a schedule II opioid drug., 1 tablet By Mouth Daily,Inst... Start Date: 01/25/21 Status: Ordered lisinopril 40 mg oral tablet 1 tablet = 40 mg, By Mouth, Daily, # 30 tablet, 11 Refills, Maintenance, 03/08/21 8:46:00 EDT, Tablet, [facility], Dose increased, 167.6, cm, 02/19/21 16:01:00 EDT, Height, 69.3, kg,02/02/21 13:00:00 EDT, Dry Weight Start Date: 03/08/21 Status: Ordered MiraLax oral powder for reconstitution = 17 Gm, By Mouth, Daily, PRN Constipation, dissolve in water before taking, # 527 Gm, 11 Refills, Maintenance, 02/08/21 20:01:00 EDT, REC Powder, [facility]/pharmacy #[id number], Partial fill upon patient request if the prescription is for a schedule II opioid dr... Start Date: 02/08/21 Status: Ordered mirtazapine 15 mg oral tablet 1 tablet = 15 mg, By Mouth, Daily at bedtime, # 30 tablet, 4 Refills, Maintenance, 02/19/21 16:53:00 EDT, Tablet, [facility], increase dose, 167.6, cm, 02/19/21 16:01:00 EDT, Height,69.3, kg, 02/02/21 13:00:00 EDT, Dry Weight Start Date: 02/19/21 Stop Date: 07/19/21 Status: Ordered [facility] Refills 0, Maintenance, Calcium/Mg/ Zinc 1 [...] 02/02/21 14:41:00 EDT, Route to Pharmacy Electronically, [facility]/pharmacy #[id number], 167.6, cm, 02/02/21 13:00:00 [...] 10:56:00 EDT, 12/19/20 10:56:00 EDT, REC Powder, [facility]/pharmacy #[id number], Partial fill upon patient request... Start Date: 12/19/20 Stop Date: 12/16/21 Status: Ordered Thera oral tablet 1 tablet, By Mouth, Daily, # 30 tablet, 11 Refills, Maintenance, 03/09/21 16:13:00 EDT, Tablet, [facility], Partial fill upon patient request if the prescription is for a schedule IIopioid drug., 1 tablet By Mouth Daily, 167.6, cm, 1... Start Date: 03/09/21 Status: Ordered Tylenol 325 mg oral tablet 650 mg, 2, tablet, By Mouth, Every 4 hours, PRN, # 24 tablet, Refills 1, Tot. Refills 1, Maintenance, for fever, 02/02/21 14:41:00 EDT, Route to Pharmacy Electronically, [facility]/pharmacy #[id number], Partial fill upon patient request if the [...]
--- OUTSIDE RECORDS SUMMARY | 2023-11-18 06:44 | XMS_ITS | Continuity of Care Document ---
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 Start Date: 02/20/23 Status: Ordered Bactrim 400 mg-80 mg oral tablet 1 tablet, By Mouth, Daily, BUBBLE PACK, # 90 tablet, 1 Refills, Maintenance, 02/20/23 13:37:00 EDT,Tablet, [facility], Partial fill upon patient request if [...] mL, 11 Refills, Maintenance, 09/18/22 15:52:00 EDT, [facility], replaced tablets by suspension, 167.6, [...] Maintenance, 04/25/23 11:55:00 EST, Tablet, [facility], Partial fill upon patient [...] Refills, Maintenance, 02/20/23 13:46:00 EDT, EC Capsule, [facility], Partial fill upon patient request if... [...] Refills, Maintenance, 04/25/23 11:55:00 EST, Tablet, [facility], Partial fill upon patient request if the prescription is for a schedule... Start Date: 04/25/23 Status: Ordered hydrochlorothiazide-olmesartan 25 mg-40 mg oral tablet 1 tablet, By Mouth, Daily, BUBBLE PACK, # 90 tablet, 3 Refills, Maintenance, 02/20/23 13:37:00 EDT,Tablet, [facility], d/c HCTZ/lisinopril, 1 tablet By Mouth Daily,Instr:BUBBLE PACK, 167.6, cm, 12/23/22 8:35:00 EDT, Height Start Date: 02/20/23 Status: Ordered Lidoderm 5% film 2 patch, Topically, Daily, remove patches after 12 hours; 2 patches to pain areas; can cut patches in half; do not excede 2 patches., # 60 patch, 4 Refills, Maintenance, 03/06/23 15:42:00 EDT, [facility]/pharmacy #[id number], Partial fill upon patient request if t... 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
--- OUTSIDE RECORDS SUMMARY | 2023-11-18 06:44 | XMS_ITS | Continuity of Care Document ---
Author Organization [facility] Address [address] [place] [address]- Care Team Providers Care Greenskeeper Laborer Name Role Phone Cornelius REDDY, Shala Kuo Primary Care Physician [phone] [facility]counter [facility] Date[facility]s): 07/21/23 - 10/18/23 [facility] [address] [place], [place] [phone] Attending Physician: Shala Shields MD Admitting Physician: Shala Shields MD Allergies, Adverse Reactions, Alerts Substance Reaction Severity Status azithromycin 1 Persistent Mild Active rifabutin Rash Persistent Moderate Active amLODIPine 2 Active 1Rash 2Had Lower extremity ankle swelling with 10mg. Immunizations Given and Recorded Vaccine Date Status Refusal Reason SARS-CoV-2 (COVID-19) [id number] vaccine 04/04/22 G iven influenza virus vaccine, [...] 02/20/23 13:39:00 EDT, Route to Pharmacy Electronically, [facility], Partial fill upon patient request if [...] patch, 0 Refills, Maintenance, 10/16/23 12:29:00 EDT, [facility], Partial fill upon patient request if the prescription is for a schedule II opioid d... Start Date: 10/16/23 Status: Ordered Colace sodium 100 mg oral [...] 1 Refills, Maintenance, 09/29/23 14:29:00 EDT, Tablet, [facility], Partial fill upon patient request if the prescription is for a... Start Date: 09/29/23 Status: Ordered diclofenac 1% topical gel 1 application, Topically, 4 times a day, # 100 Gm, 11 Refills, Maintenance, 09/18/22 15:52:00 EDT, Gel, [facility], Partial fill upon [...] Refills, Maintenance, 07/03/23 19:03:00 EST, EC Capsule, [facility], Partial fill upon patient request if the... Start Date: 07/03/23 Status: Ordered ferrous sulfate 325 mg oral enteric coated tablet 325 mg, 1, tablet, By Mouth, Daily, # 90 tablet, Refills 3, Tot. Refills 3, Maintenance, 08/26/23 9:38:00 EDT, Route to Pharmacy Electronically, [facility], Partial fill upon patientrequest [...] 09/24/23 14:21:00 EDT, Route to Pharmacy Electronically, [facility],... Start Date: 09/24/23 Status: Ordered Genvoya oral tablet 1 tablet, By Mouth, Daily, with food, please get labs before refills; BUBBLE PACK, # 90 tablet, 1 Refills, Maintenance, 09/29/23 14:29:00 EDT, Tablet, [facility], Partial fill upon patient request if the prescription is for a schedule... Start Date: 09/29/23 Status: Ordered hydrochlorothiazide-olmesartan 25 mg-40 mg oral tablet 0.5 tablet, By Mouth, Daily, # 15 tablet, 4 Refills, Maintenance, 08/07/23 15:23:00 EDT, Tablet, [facility]/pharmacy #[id number], decrease dose, 0.5 tablet By Mouth Daily, 167.6, cm, 08/05/23 9:50:00 EDT, Height Start Date: 08/07/23 Status: Ordered hydrOXYzine pamoate 25 mg oral capsule 1 capsule = 25 mg, By Mouth, 4 times a day, PRN for anxiety, # 120 capsule, 0 Refills, Maintenance,09/11/23 19:24:00 EDT, Capsule, [facility]/pharmacy #[id number], Partial fill upon patient request if the prescription is for a schedule II opioid drug., 167.6, cm,... Start Date: 09/11/23 Status: Ordered Lidoderm 5% film 2 patch, Topically, Daily, remove patches after 12 hours; 2 patches to pain areas; can cut patches in half; do not excede 2 patches., # 60 patch, 4 Refills, Maintenance, 03/06/23 15:42:00 EDT, [facility]/pharmacy #[id number], Partial fill upon patient request if t... Start Date: 03/06/23 Stop Date: 08/03/23 Status: Ordered meloxicam 7.5 mg oral tablet 1 tablet = 7.5 mg, By Mouth, Daily, Talke with acetaminophen, # 14 tablet, 0 Refills, Maintenance, 08/25/23 16:16:00 EDT, Tablet, [facility], Partial fill [...] 11 Refills, Soft Stop, 10/16/23 17:07:00 EDT, [facility]/pharmacy #[id number], Partial fill upon patient [...] 0 Refills, Maintenance, 10/08/23 13:38:00 EDT, Tablet, [facility]/pharmacy #[id number], Partial fill upon patient [...] Refills, Maintenance, 07/03/23 18:52:00 EST, REC Powder, [facility], Partial fill upon patient request if the prescription is for a schedule II opioid drug., 17 Gm... Start Date: 07/03/23 Stop Date: 10/01/23 Status: Ordered Thera oral tablet 1 tablet, By Mouth, Daily, # 90 tablet, 3 Refills, Maintenance, 08/26/23 9:38:00 EDT, Tablet, [facility], Partial fill upon patient request if the prescription is for a schedule II opioid drug., 1 tablet By Mouth Daily, 167.6, cm, ... 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 Sex Patient Care team information Care Team Personnel Name: Jaky Nicole RN Position: [facility] RN Member Role: Primary Care Nurse Name: Rhea Brooks Position: [facility] RN Member Role: Primary Care Nurse Name: Shala Shields MD Position: [facility] Physician - Primary Care Member Role: PCP Address: Address: [address] [place] [address] [place] [address]- Name: Kassi Wang RN Position: [facility] RN Member Role: Primary Care Nurse Name: Isabell David RN Position: [facility] ERNESTO Office Staff Member Role: Primary Care Nurse Care Team Related Persons Name: REYES OSHEA Address: home [address] [address] Name: SHANIKA ZAVALA Address: home [address] [place] [address]
--- OUTSIDE RECORDS SUMMARY | 2023-11-18 06:44 | XMS_ITS | Continuity of Care Document ---
Author Organization [facility] y Address [address] [place] [address]- Care Team Providers Care Nut Sheller Name Role Phone Shala Shields MD Primary Care Physician Encounter [facility] Date(s): 09/24/21 - 10/24/21 [facility] [address] [place], [place] [address] Attending Physician: Jairo Ochoa Admitting Physician: AdmJairo [...] 5 Refills, Maintenance, 01/25/21 10:04:00 EDT, Tablet, [facility], Partial [...] mL, 11 Refills, Maintenance, 02/02/21 17:36:00 EDT, [facility], replaced tablets by suspension, 167.6, cm, 02/02/21 13:00:00 EDT, Height, 69.3, kg, 02/02/21 13:00... Start Date: 02/02/21 Stop Date: 01/04/22 Status: Ordered Colace sodium 100 mg oral capsule 100 mg, 1, capsule, By Mouth, 2 times a day, PRN, # 60 capsule, Refills 11, Tot. Refills 11, Maintenance, for constipation, 02/08/21 20:01:00 EDT, Route to Pharmacy Electronically, [facility]/pharmacy #[id number], Partial fill upon patient request if the prescript... Start Date: 02/08/21 Status: Ordered darunavir 800 mg oral tablet 1 tablet = 800 mg, By Mouth, Daily, with food, pls get labs done for more refills, orders in!, # 30tablet, 0 Refills, Maintenance, 09/13/21 15:33:00 EDT, Tablet, [facility], Partialfill upon patient request if the prescription is fo... Start Date: 09/13/21 Status: Ordered ferrous sulfate 325 mg oral enteric coated tablet 325 mg, 1, tablet, By Mouth, Daily, # 30 tablet, Refills 11, Tot. Refills 11, Maintenance, 03/02/2112:59:00 EDT, Route to Pharmacy Electronically, [facility], Partial fill upon patient request if the prescription is for a schedule II... Start Date: 03/02/21 Status: Ordered Genvoya oral tablet 1 tablet, By Mouth, Daily, with food, pls get labs done for more refills, orders in!, # 30 tablet, 0 Refills, Maintenance, 09/13/21 15:33:00 EDT, Tablet, [facility], Partial fill upon patient request if the prescription is for a sched... Start Date: 09/13/21 Status: Ordered hydrochlorothiazide-lisinopril 25 mg-20 mg oral tablet 1 tablet, By Mouth, Daily, # 30 tablet, 4 Refills, Maintenance, 06/28/21 16:48:00 EST, Tablet, [facility], d/c lisinopril 40 mg - change [...] 4 Refills, Maintenance, 02/19/21 16:53:00 EDT, Tablet, [facility], increase dose, 167.6, cm, [...] 11 Refills, Maintenance, 03/09/21 16:13:00 EDT, Tablet, [facility], Partial fill upon patient [...] Route to Pharmacy Electronically, [facility]/pharmacy #[id number], Partial fill upon patient request if the [...]
--- OUTSIDE RECORDS SUMMARY | 2023-11-18 06:44 | XMS_ITS | Continuity of Care Document ---
Author Organization [facility] Address [address] [place] [address]- Care Team Providers Care Bag Loader Name Role Phone Shala Shields MD Primary Care Physician [facility] Date(s): 02/26/22 - 03/28/22 [facility] [address] [place], [place] [address] Allergies, Adverse Reactions, Alerts Substance Reaction [...] GIVEN DATED: 11/18/11 8Admin Note: VIS GIVEN VENEZUELAN 2011-04 9Admin Note: vis given vis date 12/26/2009 10Admin Note: Prevnar 11Admin Note: VIS GIVEN VIS DATE 03/26 Medications acetaminophen 325 mg oral tablet 650 mg, 2, tablet, By Mouth, 3 times a day, PRN, # 180 tablet, Refills 11, Tot. Refills 11, Maintenance, as needed for fever, 01/28/22 14:53:00 EDT, Route to Pharmacy Electronically, [facility], Partial fill upon patient [...] mL, 11 Refills, Maintenance, 02/02/21 17:36:00 EDT, [facility], replaced tablets by suspension, 167.6, cm, 02/02/21 13:00:00 EDT, Height, 69.3, kg, 02/02/21 13:00... Start Date: 02/02/21 Stop Date: 01/04/22 Status: Ordered Colace sodium 100 mg oral capsule 100 mg, 1, capsule, By Mouth, 2 times a day, PRN, # 60 capsule, Refills 11, Tot. Refills 11, Maintenance, for constipation, 02/08/21 20:01:00 EDT, Route to Pharmacy Electronically, [facility]/pharmacy #[id number], Partial fill upon patient request if the prescript... Start Date: 02/08/21 Status: Ordered darunavir 800 mg oral tablet 1 tablet = 800 mg, By Mouth, Daily, with food, please get labs before refills, # 90 tablet, 3 Refills, Maintenance, 11/28/21 12:11:00 EDT, Tablet, [facility], Partial fill upon patient request if the prescription is for a schedule II... Start Date: 11/28/21 Status: Ordered diclofenac 1% topical gel 1 application, Topically, 4 times a day, # 100 Gm, 11 Refills, Maintenance, 12/06/21 19:06:00 EDT, Gel, [facility]/pharmacy #[id number], Partial fill upon patient request if the prescription is for a schedule II opioid drug., 167.6, cm, 12/06/21 18:07:00 EDT, [facility]... Start Date: 12/06/21 Status: Ordered duloxetine 60 mg oral enteric coated capsule 1 capsule = 60 mg, By Mouth, Daily, # 30 capsule, 11 Refills, Maintenance, 03/05/22 12:42:00 EDT, EC Capsule, [facility], Partial fill upon patient request if the prescription is fora schedule II opioid drug., 167.6, cm, 03/05/22 9:5... Start Date: 03/05/22 Status: Ordered ferrous sulfate 325 mg oral enteric coated tablet 325 mg, 1, tablet, By Mouth, Every other day, # 30 tablet, Refills 11, Tot. Refills 11, Maintenance, 12/06/21 19:06:00 EDT, Route to Pharmacy Electronically, [facility]/pharmacy #[id number], Partial fill upon patient request if the prescription is for a schedule I... Start Date: 12/06/21 Status: Ordered Genvoya oral tablet 1 tablet, By Mouth, Daily, with food, please get labs before refills, # 90 tablet, 3 Refills, Maintenance, 11/28/21 12:10:00 EDT, Tablet, [facility], Partial fill upon patient request if the prescription is for a schedule II opioid dr... Start Date: 11/28/21 Status: Ordered hydrochlorothiazide-lisinopril 25 mg-20 mg oral tablet 1 tablet, By Mouth, Daily, please get labs before refills, # 30 tablet, 11 Refills, Maintenance, 01/28/22 14:55:00 EDT, Tablet, [facility], d/c lisinopril 40 mg - change to combo med, 1 tablet By Mouth Daily,Instr:please get labs befo... Start Date: 01/28/22 Status: Ordered metroNIDAZOLE 0.75% topical gel 1 applicator, Vaginally, Daily, # 70 Gm, 0 Refills, Maintenance, 11/20/21 14:08:00 EDT, [facility], Partial fill upon patient request if the prescription is for a schedule II opioid drug., 1 applicator Vaginally Daily,x5 days, 167.6,... Start Date: 11/20/21 Stop Date: 11/25/21 Status: Ordered MiraLax oral powder for reconstitution = 17 Gm, By Mouth, Daily, PRN Constipation, dissolve in water before taking, # 527 Gm, 11 Refills, Maintenance, 02/08/21 20:01:00 EDT, REC Powder, [facility]/pharmacy #[id number], Partial fill upon patient request if the prescription is for a schedule II opioid dr... Start Date: 02/08/21 Status: Ordered mirtazapine 15 mg oral tablet 1 tablet = 15 mg, By Mouth, Daily at bedtime, please get labs before refills, # 30 tablet, 11 Refills, Maintenance, 03/28/22 20:40:00 EST, Tablet, [facility], increase dose, 167.6, [...] 11 Refills, Maintenance, 03/09/21 16:13:00 EDT, Tablet, [facility], Partial fill upon patient request if the prescription is for a schedule IIopioid drug., 1 tablet By Mouth Daily, 167.6, cm, 1... 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 Confirmed Active Mild recurrent major depression Confirmed Active Urinary incontinence Confirmed Active 1EGD 07/2010 - likely apthous ulcers with very morbid 2 weeks of weight loss and requiring IV fluids Social History Social History Type Response Smoking Status Never smoker; Tobacc o user in household: No entered on: 01/26/15 Sex Patient Care team information Care Team Personnel Name: Jaky Nicole RN Position: [facility] RN Member Role: Primary Care Nurse Name: Rhea Heard Position: [facility] RN Member Role: Primary Care Nurse Name: Shala Shields MD Position: [facility] Primary Care Physician Member Role: PCP Address: Address: [address] [facility] [place] [address]- Name: Kassi Wang RN Position: S RN Member Role: Primary Care Nurse Name: Isabell David RN Position: [facility] SN RN Member Role: Primary Care Nurse Care Team Related Persons Name: REYES OSHEA Address: home [address] [place] [id number] Name: SHANIKA ZAVALA Address: home [address] [place] [address]
--- OUTSIDE RECORDS SUMMARY | 2023-11-18 06:45 | XMS_ITS | Continuity of Care Document ---
Author Organization [facility] y Address [address] [place] [address]- Care Team Providers Care Tool Operator Name Role Phone Cornelius REDDY, Shala Kuo Primary Care Physician [phone] Encounter [facility] Date(s): 12/20/20 - 01/27/21 [facility] [address] [place], [place] [address] Attending Physician: Darío Diehl MD Admitting [...] GIVEN DATED: 7/2/12 8Admin Note: VIS GIVEN NIGERIEN 2011-04 9Admin Note: vis given vis date 12/26/2009 10Admin Note: Prevnar 11Admin Note: VIS GIVEN VIS DATE 03/26 Medications Bactrim DS 800 mg-160 mg oral tablet 1 tablet, By Mouth, Daily, # 30 tablet, 5 Refills, Maintenance, 01/25/21 10:04:00 EDT, Tablet, [facility], Partial fill upon patient request if the prescription is for a schedule II opioid drug., 1 tablet By Mouth Daily, 167.6, cm, 09... Start Date: 01/25/21 Status: Ordered Bactrim DS 800 mg-160 mg oral tablet 1 tablet, By Mouth, Every 24 hours, # 30 tablet, 5 Refills, Maintenance, 01/11/21 10:10:00 EDT, Tablet, [facility], Partial fill upon patient [...] 1,120 mL, 1 Refills, Maintenance,12/19/20 23:29:00 EDT, [facility]/pharmacy #[id number], replaced tablets by suspension, 166, cm, 12/19/20 9:44:00 EDT, Height, 66.9, kg, 12/12/20 19:05:00 EDT, Dry... Start Date: 12/19/20 Stop Date: 02/13/21 Status: Ordered darunavir 800 mg oral tablet 1 tablet = 800 mg, By Mouth, Daily, # 30 tablet, 5 Refills, Maintenance, 01/25/21 10:06:00 EDT, Tablet, [facility], Partial fill upon patient request if the prescription is for a schedule II opioid drug., 167.6, cm, 01/23/21 18:14:00... Start Date: 01/25/21 Status: Ordered ferrous sulfate 325 mg oral enteric coated tablet 325 mg, 1, tablet, By Mouth, Daily, # 30 tablet, Refills 1, Tot. Refills 1, Maintenance, 01/06/21 18:35:00 EDT, Route to Pharmacy Electronically, [facility], Partial fill upon patient [...] 0 Refills, Maintenance, 01/11/21 10:09:00 EDT, Tablet, [facility], Partial fill upon patient request if the prescription isfor a schedule II opioid drug., 166, cm, 01/11/21 9... Start Date: 01/11/21 Status: Ordered lisinopril 10 mg oral tablet 10 mg, 1, tablet, By Mouth, Daily, # 30 tablet, Refills 1, Tot. Refills 1, Maintenance, 01/06/21 18:35:00 EDT, Route to Pharmacy Electronically, [facility], Partial fill upon patientrequest if the prescription is for a schedule II op... Start Date: 01/06/21 Stop Date: 02/05/21 Status: Ordered mirtazapine 15 mg oral tablet 0.5 tablet = 7.5 mg, By Mouth, Daily at bedtime, # 15 tablet, 4 Refills, Maintenance, 01/08/21 11:59:00 EDT, Tablet, [facility], Partial fill [...] 12/19/20 10:56:00 EDT, REC Powder, [facility]/pharmacy #[id number], Partial fill upon patient request... [...]
--- OUTSIDE RECORDS SUMMARY | 2023-11-18 06:45 | XMS_ITS | Continuity of Care Document ---
Author Organization [facility] y Address [address] [place] [address]- Care Team Providers Care Wood Planer Name Role Phone Shala Shields MD Primary Care Physician [phone] [facility]counter [facility] Date[facility]s): 06/28/21 - 07/28/21 [facility] [address], [place] [address] Attending Physician: AdmJairo he Admitting Physician: [...] 5 Refills, Maintenance, 01/25/21 10:04:00 EDT, Tablet, [facility], Partial fill upon patient request [...] 11 Refills, Maintenance, 02/02/21 17:36:00 EDT, [facility], replaced tablets by suspension, 167.6, cm, 02/02/21 13:00:00 EDT, Height, 69.3, kg, 02/02/21 13:00... Start Date: 02/02/21 Stop Date: 01/04/22 Status: Ordered Colace sodium 100 mg oral capsule 100 mg, 1, capsule, By Mouth, 2 times a day, PRN, # 60 capsule, Refills 11, Tot. Refills 11, Maintenance, for constipation, 02/08/21 20:01:00 EDT, Route to Pharmacy Electronically, [facility]/pharmacy #[id number], Partial fill upon patient request if the prescript... Start Date: 02/08/21 Status: Ordered darunavir 800 mg oral tablet 1 tablet = 800 mg, By Mouth, Daily, # 30 tablet, 5 Refills, Maintenance, 01/25/21 10:06:00 EDT, Tablet, [facility], Partial fill upon patient request if the prescription is for a schedule II opioid drug., 167.6, cm, 01/23/21 18:14:00... Start Date: 01/25/21 Status: Ordered ferrous sulfate 325 mg oral enteric coated tablet 325 mg, 1, tablet, By Mouth, Daily, # 30 tablet, Refills 11, Tot. Refills 11, Maintenance, 03/02/2112:59:00 EDT, Route to Pharmacy Electronically, [facility], Partial fill upon patient request if the prescription is for a schedule II... Start Date: 03/02/21 Status: Ordered Genvoya oral tablet 1 tablet, By Mouth, Daily, with food, # 30 tablet, 5 Refills, Maintenance, 01/25/21 9:51:00 EDT, Tablet, [facility], Partial fill upon patient request if the prescription is for a schedule II opioid drug., 1 tablet By Mouth Daily,Inst... Start Date: 01/25/21 Status: Ordered hydrochlorothiazide-lisinopril 25 mg-20 mg oral tablet 1 tablet, By Mouth, Daily, # 30 tablet, 4 Refills, Maintenance, 06/28/21 16:48:00 EST, Tablet, [facility], d/c lisinopril 40 mg - change to combo med, 1 tablet By Mouth Daily, 167.6,cm, 02/19/21 16:01:00 EDT, Height, 69.3, kg, ... Start Date: 06/28/21 Status: Ordered MiraLax oral powder for reconstitution = 17 Gm, By Mouth, Daily, PRN Constipation, dissolve in water before taking, # 527 Gm, 11 Refills, Maintenance, 02/08/21 20:01:00 EDT, REC Powder, [facility]/pharmacy #[id number], Partial fill upon patient request if the prescription is for a schedule II opioid dr... Start Date: 02/08/21 Status: Ordered mirtazapine 15 mg oral tablet 1 tablet = 15 mg, By Mouth, Daily at bedtime, # 30 tablet, 4 Refills, Maintenance, 02/19/21 16:53:00 EDT, Tablet, [facility], increase dose, 167.6, cm, 02/19/21 [...] 02/02/21 14:41:00 EDT, Route to Pharmacy Electronically, [facility]/pharmacy #[id number], 167.6, cm, 02/02/21 13:00:00 EDT, Height, [...] 10:56:00 EDT, 12/19/20 10:56:00 EDT, REC Powder, [facility]/pharmacy #[id number], Partial fill upon patient request... Start Date: 12/19/20 Stop Date: 12/16/21 Status: Ordered Thera oral tablet 1 tablet, By Mouth, Daily, # 30 tablet, 11 Refills, Maintenance, 03/09/21 16:13:00 EDT, Tablet, [facility], Partial fill upon patient request if the prescription is for a schedule IIopioid drug., 1 tablet By Mouth Daily, 167.6, cm, 1... Start Date: 03/09/21 Status: Ordered Tylenol 325 mg oral tablet 650 mg, 2, tablet, By Mouth, Every 4 hours, PRN, # 24 tablet, Refills 1, Tot. Refills 1, Maintenance, for fever, 02/02/21 14:41:00 EDT, Route to Pharmacy Electronically, [facility]/pharmacy #[id number], Partial fill upon patient request if [...]
--- OUTSIDE RECORDS SUMMARY | 2023-11-18 06:45 | XMS_ITS | Continuity of Care Document ---
Author Organization [facility] Address [address] [place] [id number]- Care Team Providers Care Jacquard Fixer Name Role Phone Shala Shields MD Primary Care Physician [facility] Date[facility]s): 10/01/23 - 10/31/23 [facility] [address] [place], [place] [address] Attending Physician: Jairo Ochoa Admitting Physician: Admtr, Jairo Referring Physician: Admtr, Ar8 Allergies, Adverse Reactions, Alerts Substance Reaction Severity Status azithromycin 1 Persistent Mild Active rifabutin Rash Persistent Moderate Active amLODIPine 2 Active 1Rash 2Had Lower extremity ankle swelling with 10mg. Immunizations Given and Recorded Vaccine Date Status Refusal Reason SARS-CoV-2 (COVID-19) mRNA-5568 vaccine 04/04/22 G iven influenza virus vaccine, [...] 02/20/23 13:39:00 EDT, Route to Pharmacy Electronically, [facility], Partial fill upon patient request if [...] patch, 0 Refills, Maintenance, 10/16/23 12:29:00 EDT, [facility], Partial fill upon patient request [...] 1 Refills, Maintenance, 09/29/23 14:29:00 EDT, Tablet, [facility], Partial fill upon patient request if the prescription is for a... Start Date: 09/29/23 Status: Ordered diclofenac 1% topical gel 1 application, Topically, 4 times a day, # 100 Gm, 11 Refills, Maintenance, 09/18/22 15:52:00 EDT, Gel, [facility], Partial fill upon patient request if the prescription is for a schedule II opioid drug., 167.6, cm, 07/04/22 16:00:00... Start Date: 09/18/22 Status: Ordered duloxetine 60 mg oral enteric coated capsule 1 capsule = 60 mg, By Mouth, Daily, start with duloxetine 30mg daily x 2 weeks then duloxetine 60mgdaily;, # 30 capsule, 4 Refills, Maintenance, 07/03/23 19:03:00 EST, EC Capsule, [facility], Partial fill upon patient request if the... Start Date: 07/03/23 Status: Ordered ferrous sulfate 325 mg oral enteric coated tablet 325 mg, 1, tablet, By Mouth, Daily, # 90 tablet, Refills 3, Tot. Refills 3, Maintenance, 08/26/23 9:38:00 EDT, Route to Pharmacy Electronically, [facility], Partial fill upon patientrequest if [...] 09/24/23 14:21:00 EDT, Route to Pharmacy Electronically, [facility],... Start Date: 09/24/23 Status: Ordered Genvoya oral tablet 1 tablet, By Mouth, Daily, with food, please get labs before refills; BUBBLE PACK, # 90 tablet, 1 Refills, Maintenance, 09/29/23 14:29:00 EDT, Tablet, [facility], Partial fill upon patient request if the prescription is for a schedule... Start Date: 09/29/23 Status: Ordered hydrochlorothiazide-olmesartan 25 mg-40 mg oral tablet 0.5 tablet, By Mouth, Daily, # 15 tablet, 4 Refills, Maintenance, 08/07/23 15:23:00 EDT, Tablet, [facility]/pharmacy #[id number], decrease dose, 0.5 tablet By Mouth Daily, 167.6, cm, 08/05/23 9:50:00 EDT, Height Start Date: 08/07/23 Status: Ordered hydrOXYzine pamoate 25 mg oral capsule 1 capsule = 25 mg, By Mouth, 4 times a day, PRN for anxiety, # 120 capsule, 0 Refills, Maintenance,09/11/23 19:24:00 EDT, Capsule, [facility]/pharmacy #[id number], Partial fill upon patient request if the prescription is for a schedule II opioid drug., 167.6, cm,... Start Date: 09/11/23 Status: Ordered Lidoderm 5% film 2 patch, Topically, Daily, remove patches after 12 hours; 2 patches to pain areas; can cut patches in half; do not excede 2 patches., # 60 patch, 4 Refills, Maintenance, 03/06/23 15:42:00 EDT, [facility]/pharmacy #[id number], Partial fill upon patient request if t... Start Date: 03/06/23 Stop Date: 08/03/23 Status: Ordered meloxicam 7.5 mg oral tablet 1 tablet = 7.5 mg, By Mouth, Daily, Talke with acetaminophen, # 14 tablet, 0 Refills, Maintenance, 08/25/23 16:16:00 EDT, Tablet, [facility], Partial fill upon patient [...] 11 Refills, Soft Stop, 10/16/23 17:07:00 EDT, [facility]/pharmacy #[id number], Partial fill upon patient [...] 0 Refills, Maintenance, 10/08/23 13:38:00 EDT, Tablet, [facility]/pharmacy #[id number], Partial fill upon patient [...] Refills, Maintenance, 07/03/23 18:52:00 EST, REC Powder, [facility], Partial fill upon patient request if the prescription is for a schedule II opioid drug., 17 Gm... Start Date: 07/03/23 Stop Date: 10/01/23 Status: Ordered Thera oral tablet 1 tablet, By Mouth, Daily, # 90 tablet, 3 Refills, Maintenance, 08/26/23 9:38:00 EDT, Tablet, [facility], Partial fill upon patient request if the prescription is for a schedule II opioid drug., 1 tablet By Mouth Daily, 167.6, cm, ... Start Date: 08/26/23 Status: Ordered Vitamin D3 1000 intl units oral capsule 1 capsule = 25 mcg, By Mouth, Daily, # 90 capsule, 3 Refills, Maintenance, 07/03/23 19:05:00 EST, Capsule, [facility], Partial fill upon patient [...] pubis OA, left Confirmed Active *[facility] [phone] Confirmed Active Depression, Mild recurrent major Confirmed Active Rosacea Confirmed Active Urinary incontinence Confirmed Active Social History Social History Type Response Tobacco Use: Rolls weed in l eaf tabacco . Sex Patient Care team information Care Team Personnel Name: Jaky Nicole RN Position: [facility] RN Member Role: Primary Care Nurse Name: Rhea Brooks RN Position: [facility] RN Member Role: Primary Care Nurse Name: Shala Shields MD Position: [facility] Physician - Primary Care Member Role: PCP Address: Address: [address] [place] [address] [place] [address]- Name: Kassi Wang RN Position: [facility] RN Member Role: Primary Care Nurse Name: Isabell David RN Position: [facility] [place] Office Staff Member Role: Primary Care Nurse Care Team Related Persons Name: REYES OSHEA Address: home [address] [address] Name: SHANIKA ZAVALA Address: [address] [place] [address]
--- OUTSIDE RECORDS SUMMARY | 2023-11-18 06:45 | XMS_ITS | Continuity of Care Document ---
Author Organization [facility] Address [address] [place] [address]- Care Team Providers Care Ip Counsel Name Role Phone Maisha Lin DO Primary Care Physician Encounter [facility] Date(s): 02/15/20 - 03/16/20 [facility] [address] [place] [address]- [facility] Allergies, Adverse Reactions, Alerts Substance Reaction Severity [...] GIVEN DATED: 11/18/11 8Admin Note: VIS GIVEN VIETNAMESE 2011-04 9Admin Note: vis given vis date 12/26/2009 10Admin Note: Prevnar 11Admin Note: VIS GIVEN VIS DATE 03/26 Medications Bactrim DS 800 mg-160 mg oral tablet 1 tablet, By Mouth, Daily, for 30 days, # 30 tablet, 6 Refills, Acute 10/12/20 9:47:00 EDT, 03/16/20 9:47:00 EDT, Tablet, [facility], 1 tablet By Mouth Daily,x30 days, 168, cm, 03/16/20 8:08:00 EDT, Height, 71.6, kg, 02/11/20 4:57:00... Start Date: 03/16/20 Stop Date: 10/12/20 Status: Ordered darunavir 800 mg oral tablet 1 tablet = 800 mg, By Mouth, Daily, # 30 tablet, 2 Refills, Maintenance, 03/16/20 9:01:00 EDT, Tablet, [facility], 168, cm, 03/16/20 8:08:00 EDT, Height, 71.6, kg, 02/11/20 4:57:00 EDT, Dry Weight Start Date: 03/16/20 Stop Date: 06/14/20 Status: Ordered docusate sodium 100 mg oral capsule 100 mg, 1, capsule, By Mouth, 2 times a day, # 28 capsule, Refills 3, Tot. Refills 3, Maintenance, 03/16/20 9:41:00 EDT, Route to Pharmacy Electronically, [facility], 168, cm, 03/16/20 8:08:00 EDT, Height, 71.6, kg, 02/11/20 4:57:00 E... Start Date: 03/16/20 Stop Date: 05/11/20 Status: Ordered doxepin 25 mg oral capsule 3 capsule = 75 mg, By Mouth, Daily at bedtime, Please fill today, # 90 capsule, 5 Refills, Maintenance, 03/16/20 9:49:00 EDT, Capsule, [facility], 168, cm, 03/16/20 8:08:00 EDT, Height, 71.6, kg, 02/11/20 4:57:00 EDT, Dry Weight Start Date: 03/16/20 Stop Date: 09/12/20 Status: Ordered ergocalciferol 15824 iu oral capsule 50,000 International_Units, 1, capsule, By Mouth, Every week, # 5 capsule, Refills 1, Tot. Refills 1, Maintenance, 03/16/20 9:45:00 EDT, Route to Pharmacy Electronically, [facility],168, cm, 03/16/20 8:08:00 EDT, Height, 71.6, kg, 09... Start Date: 03/16/20 Stop Date: 05/15/20 Status: Ordered ferrous gluconate 324 mg (37.5 mg elemental iron) oral tablet 1 tablet = 324 mg, By Mouth, 2 times a day, # 60 tablet, 1 Refills, Maintenance, 03/16/20 9:45:00 EDT, Tablet, [facility], 168, cm, 03/16/20 8:08:00 EDT, Height, 71.6, kg, 02/11/20 4:57:00 EDT, Dry Weight Start Date: 03/16/20 Stop Date: 05/15/20 Status: Ordered Genvoya oral tablet 1 tablet, By Mouth, Daily, with food, # 30 tablet, 2 Refills, Maintenance, 03/16/20 9:00:00 EDT, Tablet, [facility], 1 tablet By Mouth Daily,x30 days,Instr:with food, 168, cm, 03/16/20 8:08:00 EDT, Height, 71.6, kg, 02/11/20 4:57:00 E... Start Date: 03/16/20 Stop Date: 06/14/20 Status: Ordered influenza virus vaccine, inactivated adjuvanted preservative-free quadrivalent intramuscular susp 0.5 mL, Intramuscular, Once, # 0.5 mL, 0 Refills, Soft Stop, 03/16/20 8:57:00 EDT, Suspension, [facility] 0.5 mL Intramuscular Once, 168, cm, 03/16/20 8:08:00 EDT, Height, 71.6, kg, 02/11/20 4:57:00 EDT, Dry Weight Start Date: 03/16/20 Status: Ordered lisinopril 20 mg oral tablet 20 mg, 1, tablet, By Mouth, Daily, # 30 tablet, Refills 5, Tot. Refills 5, Maintenance, 03/16/20 9:46:00 EDT, Route to Pharmacy Electronically, [facility], Please buble pack, 168, cm, 03/16/20 8:08:00 EDT, Height, 71.6, kg, 02/11/20 4... Start Date: 03/16/20 Stop Date: 09/12/20 Status: Ordered Norvasc 5 mg oral tablet 5 mg, 1, tablet, By Mouth, Daily, # 30 tablet, Refills 5, Tot. Refills 5, Maintenance, 03/16/20 9:40:00 EDT, Route to Pharmacy Electronically, [facility], Please bubble pack, 168, cm, 03/16/20 8:08:00 EDT, Height, 71.6, kg, 02/11/20 4... Start Date: 03/16/20 Stop Date: 09/12/20 Status: Ordered valganciclovir 450 mg oral tablet 900 mg, 2, tablet, By Mouth, Daily, for 14 days, # 28 tablet, Refills 0, Tot. Refills 0, Acute 03/30/20 9:02:00 EST, 03/16/20 9:02:00 EDT, Route to Pharmacy Electronically, [facility], 168, cm, 03/16/20 8:08:00 [...]
--- OUTSIDE RECORDS SUMMARY | 2023-11-18 06:45 | XMS_ITS | Continuity of Care Document ---
Author Organization [facility] y Address [address] [place] [address]- Care Team Providers Care Extern Name Role Phone Shala Shields MD Primary Care Physician [facility] Date(s): 11/22/21 - 12/22/21 [facility] [address] [place], [place] [address] Attending Physician: Jairo Ochoa Admitting Physician: AdmtrJairo [...] GIVEN DATED: 11/18/11 8Admin Note: VIS GIVEN FIJIAN 2011-04 9Admin Note: vis given vis date 12/26/2009 10Admin Note: Prevnar 11Admin Note: VIS GIVEN VIS DATE 03/26 Medications acetaminophen 325 mg oral capsule 2 capsule = 650 mg, By Mouth, 3 times a day, PRN as needed for fever, for 30 days, # 180 capsule, 11 Refills, Acute 12/01/22 19:06:00 EDT, 12/06/21 19:06:00 EDT, Capsule, [facility]/pharmacy #[id number], Partial fill upon patient request if the [...] mL, 11 Refills, Maintenance, 02/02/21 17:36:00 EDT, [facility], replaced tablets by suspension, 167.6, cm, 02/02/21 13:00:00 EDT, Height, 69.3, kg, 02/02/21 13:00... Start Date: 02/02/21 Stop Date: 01/04/22 Status: Ordered Colace sodium 100 mg oral capsule 100 mg, 1, capsule, By Mouth, 2 times a day, PRN, # 60 capsule, Refills 11, Tot. Refills 11, Maintenance, for constipation, 02/08/21 20:01:00 EDT, Route to Pharmacy Electronically, [facility]/pharmacy #[id number], Partial fill upon patient request if the prescript... Start Date: 02/08/21 Status: Ordered darunavir 800 mg oral tablet 1 tablet = 800 mg, By Mouth, Daily, with food, please get labs before refills, # 90 tablet, 3 Refills, Maintenance, 11/28/21 12:11:00 EDT, Tablet, [facility], Partial fill upon patient request if the prescription is for a schedule II... Start Date: 11/28/21 Status: Ordered diclofenac 1% topical gel 1 application, Topically, 4 times a day, # 100 Gm, 11 Refills, Maintenance, 12/06/21 19:06:00 EDT, Gel, [facility]/pharmacy #[id number], Partial fill upon patient request if the prescription is for a schedule II opioid drug., 167.6, cm, 12/06/21 18:07:00 EDT, Heig... Start Date: 12/06/21 Status: Ordered duloxetine 30 mg oral enteric coated capsule 1 capsule = 30 mg, By Mouth, Daily, start with duloxetine 30mg daily x 2 weeks then duloxetine 60mgdaily, # 14 capsule, 0 Refills, Maintenance, 12/06/21 19:06:00 EDT, [facility]/pharmacy #[id number], Partial fill upon patient request if the prescription is for a... Start Date: 12/06/21 Stop Date: 12/20/21 Status: Ordered duloxetine 60 mg oral enteric coated capsule 1 capsule = 60 mg, By Mouth, Daily, start with duloxetine 30mg daily x 2 weeks then duloxetine 60mgdaily, # 30 capsule, 4 Refills, Maintenance, 12/06/21 19:06:00 EDT, EC Capsule, [facility]/pharmacy #[id number],Partial fill upon patient request if the prescripti... Start Date: 12/06/21 Status: Ordered ferrous sulfate 325 mg oral enteric coated tablet 325 mg, 1, tablet, By Mouth, Every other day, # 30 tablet, Refills 11, Tot. Refills 11, Maintenance, 12/06/21 19:06:00 EDT, Route to Pharmacy Electronically, [facility]/pharmacy #[id number], Partial fill upon patient request [...] 0 Refills, Maintenance, 10/25/21 9:38:00 EDT, Tablet, [facility], d/c lisinopril 40 mg - [...] Maintenance, 02/08/21 20:01:00 EDT, REC Powder, [facility]/pharmacy #[id number], Partial fill upon patient request [...] Refills, Maintenance, 03/09/21 16:13:00 EDT, Tablet, [facility], Partial fill upon [...]
--- OUTSIDE RECORDS SUMMARY | 2023-11-18 06:45 | XMS_ITS | Continuity of Care Document ---
Author Organization [facility] Address [address] [place] [address]- Care Team Providers Care Dry Wall Plasterer Name Role Phone Cornelius REDDY, Shala Kuo Primary Care Physician [facility] Date[facility]s): 02/13/21 - 03/15/21 [facility] [address] [place], [place] [address] Allergies, Adverse Reactions, Alerts Substance [...] GIVEN DATED: 11/18/11 8Admin Note: VIS GIVEN PALESTINIAN 2011-04 9Admin Note: vis given vis date 12/26/2009 10Admin Note: Prevnar 11Admin Note: VIS GIVEN VIS DATE 03/26 Medications Bactrim DS 800 mg-160 mg oral tablet 1 tablet, By Mouth, Daily, # 30 tablet, 5 Refills, Maintenance, 01/25/21 10:04:00 EDT, Tablet, [facility], [...] Route to Pharmacy Electronically, [facility]/pharmacy #[id number], Partial fill upon patient request if the prescript... Start Date: 02/08/21 Status: Ordered darunavir 800 mg oral tablet 1 tablet = 800 mg, By Mouth, Daily, # 30 tablet, 5 Refills, Maintenance, 01/25/21 10:06:00 EDT, Tablet, [facility], Partial fill upon patient request if the prescription is for a schedule II opioid drug., 167.6, cm, 01/23/21 18:14:00... Start Date: 01/25/21 Status: Ordered ferrous sulfate 325 mg oral enteric coated tablet 325 mg, 1, tablet, By Mouth, Daily, # 30 tablet, Refills 11, Tot. Refills 11, Maintenance, 03/02/2112:59:00 EDT, Route to Pharmacy Electronically, [facility], Partial fill upon patient request if the prescription is for a schedule II... Start Date: 03/02/21 Status: Ordered Genvoya oral tablet 1 tablet, By Mouth, Daily, with food, # 30 tablet, 5 Refills, Maintenance, 01/25/21 9:51:00 EDT, Tablet, [facility], Partial fill upon patient request if the prescription is for a schedule II opioid drug., 1 tablet By Mouth Daily,Inst... Start Date: 01/25/21 Status: Ordered lisinopril 40 mg oral tablet 1 tablet = 40 mg, By Mouth, Daily, # 30 tablet, 11 Refills, Maintenance, 03/08/21 8:46:00 EDT, Tablet, [facility], Dose increased, 167.6, cm, 02/19/21 16:01:00 EDT, Height, 69.3, kg,02/02/21 13:00:00 EDT, Dry Weight Start Date: 03/08/21 Status: Ordered MiraLax oral powder for reconstitution = 17 Gm, By Mouth, Daily, PRN Constipation, dissolve in water before taking, # 527 Gm, 11 Refills, Maintenance, 02/08/21 20:01:00 EDT, REC Powder, [facility]/pharmacy #[id number], Partial fill upon patient request if the prescription is for a schedule II opioid dr... Start Date: 02/08/21 Status: Ordered mirtazapine 15 mg oral tablet 1 tablet = 15 mg, By Mouth, Daily at bedtime, # 30 tablet, 4 Refills, Maintenance, 02/19/21 16:53:00 EDT, Tablet, [facility], increase dose, 167.6, cm, 02/19/21 16:01:00 EDT, Height,69.3, kg, 02/02/21 13:00:00 EDT, Dry Weight Start Date: 02/19/21 Stop Date: 07/19/21 Status: Ordered [facility] Refills 0, Maintenance, Calcium/Mg/ Zinc 1 [...] 02/02/21 14:41:00 EDT, Route to Pharmacy Electronically, [facility]/pharmacy #[id number], 167.6, cm, 02/02/21 13:00:00 EDT, Height, [...] 10:56:00 EDT, 12/19/20 10:56:00 EDT, REC Powder, [facility]/pharmacy #[id number], Partial fill upon patient request... Start [...] 02/02/21 14:41:00 EDT, Route to Pharmacy Electronically, [facility]/pharmacy #[id number], Partial fill upon patient request if the [...]
--- OUTSIDE RECORDS SUMMARY | 2023-11-18 06:45 | XMS_ITS | Continuity of Care Document ---
Author Organization [facility] Address [address] [place] [address]- Care Team Providers Care Teacher Ballet Name Role Phone Cornelius REDDY, Shala Kuo Primary Care Physician [facility] Date(s): 04/11/21 - 05/18/21 [facility] [address], [place] [address] Attending Physician: Not on Staff, Attending [...] GIVEN DATED: 11/18/11 8Admin Note: VIS GIVEN MONTSERRATIAN 2011-04 9Admin Note: vis given vis date 12/26/2009 10Admin Note: Prevnar 11Admin Note: VIS GIVEN VIS DATE 03/26 Medications Bactrim DS 800 mg-160 mg oral tablet 1 tablet, By Mouth, Daily, # 30 tablet, 5 Refills, Maintenance, 01/25/21 10:04:00 EDT, Tablet, [facility], Partial fill upon patient [...] mL, 11 Refills, Maintenance, 02/02/21 17:36:00 EDT, [facility], replaced tablets by suspension, 167.6, cm, 02/02/21 13:00:00 EDT, Height, 69.3, kg, 02/02/21 13:00... Start Date: 02/02/21 Stop Date: 01/04/22 Status: Ordered Colace sodium 100 mg oral capsule 100 mg, 1, capsule, By Mouth, 2 times a day, PRN, # 60 capsule, Refills 11, Tot. Refills 11, Maintenance, for constipation, 02/08/21 20:01:00 EDT, Route to Pharmacy Electronically, [facility]/pharmacy #[id number], Partial fill upon patient request if the prescript... Start Date: 02/08/21 Status: Ordered darunavir 800 mg oral tablet 1 tablet = 800 mg, By Mouth, Daily, # 30 tablet, 5 Refills, Maintenance, 01/25/21 10:06:00 EDT, Tablet, [facility], Partial fill upon patient request if the prescription is for a schedule II opioid drug., 167.6, cm, 01/23/21 18:14:00... Start Date: 01/25/21 Status: Ordered ferrous sulfate 325 mg oral enteric coated tablet 325 mg, 1, tablet, By Mouth, Daily, # 30 tablet, Refills 11, Tot. Refills 11, Maintenance, 03/02/2112:59:00 EDT, Route to Pharmacy Electronically, [facility], Partial fill upon patient request if the prescription is for a schedule II... Start Date: 03/02/21 Status: Ordered Genvoya oral tablet 1 tablet, By Mouth, Daily, with food, # 30 tablet, 5 Refills, Maintenance, 01/25/21 9:51:00 EDT, Tablet, [facility], Partial fill upon patient request if the prescription is for a schedule II opioid drug., 1 tablet By Mouth Daily,Inst... Start Date: 01/25/21 Status: Ordered lisinopril 40 mg oral tablet 1 tablet = 40 mg, By Mouth, Daily, # 30 tablet, 11 Refills, Maintenance, 03/08/21 8:46:00 EDT, Tablet, [facility], Dose increased, 167.6, cm, 02/19/21 16:01:00 EDT, Height, 69.3, kg,02/02/21 13:00:00 EDT, Dry Weight Start Date: 03/08/21 Status: Ordered MiraLax oral powder for reconstitution = 17 Gm, By Mouth, Daily, PRN Constipation, dissolve in water before taking, # 527 Gm, 11 Refills, Maintenance, 02/08/21 20:01:00 EDT, REC Powder, [facility] Date: 02/19/21 Stop Date: 07/19/21 Status: Ordered [facility] Rx Refills 0, Maintenance, [...] 02/02/21 14:41:00 EDT, Route to Pharmacy Electronically, [facility]/pharmacy #[id number], 167.6, cm, [...] 11 Refills, Maintenance, 03/09/21 16:13:00 EDT, Tablet, [facility], Partial fill upon patient request if the prescription is for a schedule IIopioid drug., 1 tablet By Mouth Daily, 167.6, cm, 1... Start Date: 03/09/21 Status: Ordered Tylenol 325 mg oral tablet 650 mg, 2, tablet, By Mouth, Every 4 hours, PRN, # 24 tablet, Refills 1, Tot. Refills 1, Maintenance, for fever, 02/02/21 14:41:00 EDT, Route to Pharmacy Electronically, [facility]/pharmacy #[id number], Partial fill upon patient request if the [...]
--- OUTSIDE RECORDS SUMMARY | 2023-11-18 06:45 | XMS_ITS | Continuity of Care Document ---
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 Start Date: 10/16/23 Status: Ordered buprenorphine-naloxone 2 mg-0.5 mg sublingual film 2 film, Sublingual, 3 times a day, Increase dose; dissolve under the tongue; can increase dose as needed for pain; [place] checked, opioid agreement for chronic pain; discontinue buprenorphine patch,# 168 film, 0 Refills, Maintenance, 11/07/23 15:07:... Start Date: 11/07/23 Stop Date: 12/05/23 Status: Ordered Colace sodium 100 mg oral [...] 1 Refills, Maintenance, 09/29/23 14:29:00 EDT, Tablet, [facility], Partial fill upon patient request if the prescription is for a... Start Date: 09/29/23 Status: Ordered diclofenac 1% topical gel 1 application, Topically, 4 times a day, # 100 Gm, 11 Refills, Maintenance, 09/18/22 15:52:00 EDT, Gel, [facility], Partial fill upon patient request [...] Maintenance, 07/03/23 19:03:00 EST, EC Capsule, [facility], Partial fill upon patient request if the... Start Date: 07/03/23 Status: Ordered ferrous sulfate 325 mg oral enteric coated tablet 325 mg, 1, tablet, By Mouth, Daily, # 90 tablet, Refills 3, Tot. Refills 3, Maintenance, 08/26/23 9:38:00 EDT, Route to Pharmacy Electronically, [facility], Partial fill upon patientrequest if the [...] 09/24/23 14:21:00 EDT, Route to Pharmacy Electronically, [facility],... Start Date: 09/24/23 Status: Ordered Genvoya oral tablet 1 tablet, By Mouth, Daily, with food, please get labs before refills; BUBBLE PACK, # 90 tablet, 1 Refills, Maintenance, 09/29/23 14:29:00 EDT, Tablet, [facility], Partial fill upon patient request if the prescription is for a schedule... Start Date: 09/29/23 Status: Ordered hydrochlorothiazide-olmesartan 25 mg-40 mg oral tablet 0.5 tablet, By Mouth, Daily, # 15 tablet, 4 Refills, Maintenance, 08/07/23 15:23:00 EDT, Tablet, [facility]/pharmacy #[id number], decrease dose, 0.5 tablet By Mouth Daily, 167.6, cm, 08/05/23 9:50:00 EDT, Height Start Date: 08/07/23 Status: Ordered hydrOXYzine pamoate 25 mg oral capsule 1 capsule = 25 mg, By Mouth, 4 times a day, PRN for anxiety, # 120 capsule, 0 Refills, Maintenance,09/11/23 19:24:00 EDT, Capsule, [facility]/pharmacy #[id number], Partial [...] patch, 4 Refills, Maintenance, 03/06/23 15:42:00 EDT, [facility]/pharmacy #[id number], Partial fill upon patient request if t... Start Date: 03/06/23 Stop Date: 08/03/23 Status: Ordered meloxicam 7.5 mg oral tablet 1 tablet = 7.5 mg, By Mouth, Daily, [place]ke with acetaminophen, # 14 tablet, 0 Refills, Maintenance, 08/25/23 16:16:00 EDT, Tablet, [facility], Partial fill upon patient request if theprescription is for a schedule II opioid drug., 167... Start Date: 08/25/23 Stop Date: 09/08/23 Status: Ordered [facility] Refills 0, Maintenance, Calcium/Mg/ Zinc 1 tablet daily, 01/23/21 17:47:00 EDT, Supply Start Date: 01/23/21 Status: Ordered nalOXONE 4 mg/0.1 mL nasal spray 1 sprays = 4 mg, Naris, Left, Once, # 2 each, 11 Refills, Soft Stop, 10/16/23 17:07:00 EDT, [facility]/pharmacy #[id number], [...] 0 Refills, Maintenance, 10/08/23 13:38:00 EDT, Tablet, [facility]/pharmacy #[id number], Partial [...] Maintenance, 07/03/23 18:52:00 EST, REC Powder, [facility], Partial fill upon patient request if the prescription is for a schedule II opioid drug., 17 Gm... Start Date: 07/03/23 Stop Date: 10/01/23 Status: Ordered Thera oral tablet 1 tablet, By Mouth, Daily, # 90 tablet, 3 Refills, Maintenance, 08/26/23 9:38:00 EDT, Tablet, [facility], Partial fill upon patient request if the prescription is for a schedule II opioid drug., 1 tablet By Mouth Daily, 167.6, cm, ... Start Date: 08/26/23 Status: Ordered Vitamin D3 1000 intl units oral capsule 1 capsule = 25 mcg, By Mouth, Daily, # 90 capsule, 3 Refills, Maintenance, 07/03/23 19:05:00 EST, Capsule, [facility], Partial fill upon patient [...] pubis OA, left Confirmed Active *Catalina Diaz Patient Safety Attendant-[facility] [phone] Confirmed Active Depression, Mild recurrent major Confirmed Active Rosacea Confirmed Active Urinary incontinence Confirmed Active Social History Social History Type Response Tobacco Use: Rolls weed in l eaf tabacco . Sex Patient Care team information Care Team Personnel Name: Jaky Nicole RN Position: [facility] RN Member Role: Primary Care Nurse Name: Rhea Brooks RN Position: [facility] RN Member Role: Primary Care Nurse Name: Shala Shields MD Position: [facility] Physician - Primary Care Member Role: PCP Address: Address: [address] [place] [address] [place], [place] [address] Name: Kassi Wang RN Position: [facility] RN Member Role: Primary Care Nurse Name: Isabell David RN Position: [facility] ERNESTO Office Staff Member Role: Primary Care Nurse Care Team Related Persons Name: REYES OSHEA Address: home [address] [address] Name: SHANIKA ZAVALA Address: [address] [place] [address]
--- OUTSIDE RECORDS SUMMARY | 2023-11-18 06:45 | XMS_ITS | Continuity of Care Document ---
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 Attending Physician: Darío Diehl MD Admitting [...] GIVEN DATED: 11/18/11 8Admin Note: VIS GIVEN MOLDOVAN 2010- 9Admin Note: vis given vis date 12/26/2009 10Admin Note: Prevnar 11Admin Note: VIS GIVEN VIS DATE 03/26 Medications Bactrim DS 800 mg-160 mg oral tablet 1 tablet, By Mouth, Daily, for 30 days, # 30 tablet, 6 Refills, Acute 10/12/20 9:47:00 EDT, 03/16/20 9:47:00 EDT, Tablet, [facility], 1 tablet By Mouth Daily,x30 days, 168, cm, 03/16/20 8:08:00 EDT, Height, 71.6, kg, 02/11/20 4:57:00... Start Date: 03/16/20 Stop Date: 10/12/20 Status: Ordered darunavir 800 mg oral tablet 1 tablet = 800 mg, By Mouth, Daily, # 90 tablet, 3 Refills, Maintenance, 09/06/20 10:47:00 EDT, Tablet, [facility]/pharmacy #[id number], 168, cm, 04/19/20 15:17:00 EST, Height, 71.6, kg, 02/11/20 4:57:00 EDT, DryWeight Start Date: 09/06/20 Stop Date: 09/01/21 Status: Ordered docusate sodium 100 mg oral capsule 100 mg, 1, capsule, By Mouth, 2 times a day, # 28 capsule, Refills 3, Tot. Refills 3, Maintenance, 03/16/20 9:41:00 EDT, Route to Pharmacy Electronically, [facility], 168, cm, 03/16/20 8:08:00 EDT, Height, 71.6, kg, 02/11/20 4:57:00 E... Start Date: 03/16/20 Stop Date: 05/11/20 Status: Ordered doxepin 25 mg oral capsule 3 capsule = 75 mg, By Mouth, Daily at bedtime, Please fill today, # 90 capsule, 5 Refills, Maintenance, 03/16/20 9:49:00 EDT, Capsule, [facility], 168, cm, 03/16/20 8:08:00 EDT, Height, 71.6, kg, 02/11/20 4:57:00 EDT, Dry Weight Start Date: 03/16/20 Stop Date: 09/12/20 Status: Ordered ferrous sulfate 325 mg oral enteric coated tablet 325 mg, 1, tablet, By Mouth, Daily, # 30 tablet, Refills 5, Tot. Refills 5, Maintenance, 04/24/20 11:06:00 EST, [id number] Partial fill upon patient requestif the prescription is for a schedule II opioid sudhir... Start Date: 04/24/20 Stop Date: 10/21/20 Status: Ordered Genvoya oral tablet 1 tablet, By Mouth, Daily, with food, # 90 tablet, 3 Refills, Maintenance, 09/06/20 10:47:00 EDT, [id number], 1 tablet By Mouth Daily,x90 days,Instr:with food, 168, cm, 04/19/20 15:17:00 EST, Height, 71.6, kg, 02/11/20 4:57:00 EDT, Dry... Start Date: 09/06/20 Stop Date: 09/01/21 Status: Ordered influenza virus vaccine, inactivated adjuvanted preservative-free quadrivalent intramuscular susp 0.5 mL, Intramuscular, Once, # 0.5 mL, 0 Refills, Soft Stop, 03/16/20 8:57:00 EDT, Suspension, [facility], 0.5 mL Intramuscular Once, 168, cm, 03/16/20 8:08:00 EDT, Height, 71.6, kg, 02/11/20 4:57:00 EDT, Dry Weight Start Date: 03/16/20 Status: Ordered lisinopril 20 mg oral tablet 20 mg, 1, tablet, By Mouth, Daily, # 30 tablet, Refills 5, Tot. Refills 5, Maintenance, 06/08/20 10:46:00 EST, Route to Pharmacy Electronically, [facility], Please buble pack, 168, cm, 04/19/20 [...]
--- NOTE | 2023-11-18 07:12 | P.HPSUR_ITS ---
Pre-Procedural Eval Section A - 24 Hr Update-Section A only Date of Service: 11/18/23 The patient is an INPATIENT: No Changes since office visit: No Cold of Flu in the past 2 weeks, No New Medical Problems, No Changes in Medication and No Patient answered all questions The patient has been examined within 24 hours of the surgical procedure. The History & Physical has been completed within 30 days and I have reviewed it.: No Section B - Complete if H&P > 30 days Chief Complaint: L4-5 Transkambin Allergies: Allergies Allergy/AdvReac Type Severity Reaction Status Date / Time amlodipine Allergy Swelling Verified 11/05/23 11:34 azithromycin Allergy Rash Verified 08/29/23 14:57 rifabutin Allergy Rash Verified 08/29/23 14:57 Review of Systems Sugical H&P ROS: Negative: Constitution, Cardiovascular, Respiratory, Neurological, Psychiatric, Hem-Onc, Allergic/Immunologic, Gastrointestinal, Genitourinary, Musculoskeletal, Integumentary, Endocrine and Eyes/Ears/Nose/Throat Exam Surgical H&P Exam: Normal: HEENT, Normal: Heart, Normal: Lungs, Normal: E xtremities, Normal: Abdomen, Normal: Skin and Normal: Neurological (awake, alert,oriented ) Plan Diagnosis/Plan: Unchanged L4-5 transkambin lumbar fusion Time Spent With Patient Time: Total time managing care of this patient today __6__ minutes.
[2023-11-18] MEDS: Gabapentin 300 MG CAPSULE PO ×3 (08:47→20:03)
[2023-11-18] MEDS: methocarbamoL 750 MG TABLET PO (08:48)
[2023-11-18] MEDS: Lactated Ringers 1,000 ML 100 ML IVCONT (08:54)
--- NOTE | 2023-11-18 09:25 | HO.ANESPROP2 ---
Documented by User: Carrie De La Cruz NP 11/05/23 12:22 HPI - Anesthesia Eval Consult details Narrative: 43yo F for Transkambin Lumbar Interbody Fusion, 11/18/23 No recent illness No CP/SOB within limits of pain HIV: On triple therapy. Follows with Dr Shields ETOH: Abstinence since 06/2023 Suboxone daily: 2mg-0.5mg TID for pain. Instructed to continue. Titrated off oxycodone and buprenorphine patch. s/p tubal PMFSH Active Problems Active Problems: All Active Problems Other bilateral secondary osteoarthritis of hip (Acute) Lumbar radiculopathy (Acute) Fibromyalgia (Acute) Osteoarthritis of right hip (Acute) Piriformis syndrome of right side (Acute) Tendinopathy of right gluteus medius (Acute) Arthralgia of right hip (Acute) COVID-19 (Acute) Past Medical History Medical History (Updated 11/05/23 @ 11:33 by Francesca Morris RN) Back pain Numbness Elevated cholesterol Urinary incontinence Rosacea Osteoarthritis Lumbar radiculopathy Anemia Fibromyalgia EtOH dependence Cervical dysplasia Arthralgia of hip, right Depression HIV (human immunodeficiency virus infection) HTN (hypertension) Family History Family history of problems with anesthesia: No Surgical History Surgical History (Updated 11/05/23 @ 11:34 by Francesca Morris RN) Hx of left knee surgery History of tubal ligation Hx of cone biopsy of cervix History of esophagogastroduodenoscopy (EGD) History of Problems with Anesthesia: No Social History Social History Are you a primary home care assistant to a significant other at home: No Do you presently have visiting nurse or other home services: No Patient Tobacco Use Status: Never used Tobacco Use of substances other than those prescribed or required for medical reasons: No Substance Use Type: Marijuana Have you been hit, kicked, punched, or otherwise hurt by someone within the past year? 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 Allergies Allergy/AdvReac Type Severity Reaction Status Date / Time amlodipine Allergy Swelling Verified 11/05/23 11:34 azithromycin Allergy Rash Verified 08/29/23 14:57 rifabutin Allergy Rash Verified 08/29/23 14:57 Home Medications ?Medication ?Instructions ?Recorded ?Confirmed ?Last Taken ?Type darunavir 800 mg tablet (Prezista) 800 mg PO DAILY 03/31/23 11/05/23 Unknown History buprenorphine 2 mg-naloxone 0.5 mg 3 film buccal TID 11/05/23 11/18/23 11/17/23 History sublingual film cholecalciferol (vitamin D3) 25 25 mcg PO DAILY 11/05/23 11/05/23 Unknown History mcg (1,000 unit) tablet (Vitamin D3) docusate sodium 100 mg capsule 100 mg PO BID PRN Constipation 11/05/23 11/05/23 Unknown History (Colace) duloxetine 60 mg capsule,delayed 60 mg PO DAILY 11/05/23 11/05/23 Unknown History release elviteg 150 mg-cob 150 mg-emtricit 1 tab PO DAILY 11/05/23 11/05/23 Unknown History 200 mg-tenofo alafenam 10 mg tablet (Genvoya) ferrous sulfate 325 mg (65 mg 325 mg PO DAILY 11/05/23 11/05/23 Unknown History iron) tablet hydroxyzine pamoate 25 mg capsule 25 mg PO QID PRN anxiety 11/05/23 11/05/23 Unknown History olmesartan 40 1 tab PO DAILY 11/05/23 11/05/23 Unknown History mg-hydrochlorothiazide 25 mg tablet pantoprazole 40 mg tablet,delayed 40 mg PO BID 11/05/23 11/05/23 Unknown History release polyethylene glycol 3350 17 gram 17 g PO DAILY 11/05/23 11/05/23 Unknown History oral powder packet therapeutic multivitamin 1 tab PO DAILY 11/05/23 11/05/23 Unknown History Exam Height,Weight and Vital Signs: Height 5 ft 6 in Last Vital Signs Pulse 80 11/05/23 11:41 Resp 18 11/05/23 11:41 BP 134/99 H 11/05/23 11:41 Pulse Ox 98 11/05/23 11:41 O2 Del Method Room Air 11/05/23 11:41 Airway Mallampati Class: I TM Dist: >3cm Neck ROM: Full Loose/Missing/Broken Teeth: Yes (Broken and missing molars throughout) Heart: RRR Lungs: CTAB Assessment and Plan Assessment Anesthesia Assessment: Anesthesia Plan Discussed and PAT Visit Final Anesthetic Review Family History of Problems with Anesthesia: No History of Problems with Anesthesia: No Documented by User: Deborah Dawson, 11/18/23 09:31 [facility] Past Medical History Medical History (Updated 11/05/23 @ 11:33 by Francesca Morris RN) Back pain Numbness Elevated cholesterol Urinary incontinence Rosacea Osteoarthritis Lumbar radiculopathy Anemia Fibromyalgia EtOH dependence Cervical dysplasia Arthralgia of hip, right Depression HIV (human immunodeficiency virus infection) HTN (hypertension) Family History Family history of problems with anesthesia: No Surgical History Surgical History (Updated 11/05/23 @ 11:34 by Francesca Morris RN) Hx of left knee surgery History of tubal ligation Hx of cone biopsy of cervix History of esophagogastroduodenoscopy (EGD) History of Problems with Anesthesia: No Social History Social History Are you a primary home care assistant to a significant other at home: No Do you presently have visiting nurse or other home services: No Patient Tobacco Use Status: Never used Tobacco Use of substances other than those prescribed or required for medical reasons: No Substance Use Type: Marijuana Have you been hit, kicked, punched, or otherwise hurt by someone within the past year? 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 Allergies Allergy/AdvReac Type Severity Reaction Status Date / Time amlodipine Allergy Swelling Verified 11/05/23 11:34 azithromycin Allergy Rash Verified 08/29/23 14:57 rifabutin Allergy Rash Verified 08/29/23 14:57 Home Medications ?Medication ?Instructions ?Recorded ?Confirmed ?Last Taken ?Type darunavir 800 mg tablet (Prezista) 800 mg PO DAILY 03/31/23 11/05/23 Unknown History buprenorphine 2 mg-naloxone 0.5 mg 3 film buccal TID 11/05/23 11/18/23 11/17/23 History sublingual film cholecalciferol (vitamin D3) 25 25 mcg PO DAILY 11/05/23 11/05/23 Unknown History mcg (1,000 unit) tablet (Vitamin D3) docusate sodium 100 mg capsule 100 mg PO BID PRN Constipation 11/05/23 11/05/23 Unknown History (Colace) duloxetine 60 mg capsule,delayed 60 mg PO DAILY 11/05/23 11/05/23 Unknown History release elviteg 150 mg-cob 150 mg-emtricit 1 tab PO DAILY 11/05/23 11/05/23 Unknown History 200 mg-tenofo alafenam 10 mg tablet (Genvoya) ferrous sulfate 325 mg (65 mg 325 mg PO DAILY 11/05/23 11/05/23 Unknown History iron) tablet hydroxyzine pamoate 25 mg capsule 25 mg PO QID PRN anxiety 11/05/23 11/05/23 Unknown History olmesartan 40 1 tab PO DAILY 11/05/23 11/05/23 Unknown History mg-hydrochlorothiazide 25 mg tablet pantoprazole 40 mg tablet,delayed 40 mg PO BID 11/05/23 11/05/23 Unknown History release polyethylene glycol 3350 17 gram 17 g PO DAILY 11/05/23 11/05/23 Unknown History oral powder packet therapeutic multivitamin 1 tab PO DAILY 11/05/23 11/05/23 Unknown History Exam Exam Date and Time: November 18, 2023 09 Height,Weight and Vital Signs: Height 5 ft 6 in Weight 77.791 kg Vital Signs Pulse Rate 80 11/05/23 11:41 Respiratory Rate 18 11/05/23 11:41 Blood Pressure 134/99 H 11/05/23 11:41 Pulse Oximetry 98 11/05/23 11:41 Oxygen Delivery Method Room Air 11/05/23 11:41 Temperature 98.7 F 11/18/23 08:37 Pulse Rate 71 11/18/23 08:37 Respiratory Rate 16 11/18/23 08:37 Blood Pressure 126/101 H 11/18/23 08:37 Pulse Oximetry 98 11/18/23 08:37 Oxygen Delivery Method Room Air 11/18/23 08:37 Height 5 ft 6 in Last Vital Signs Pulse 80 11/05/23 11:41 Resp 18 11/05/23 11:41 BP 134/99 H 11/05/23 11:41 Pulse Ox 98 11/05/23 11:41 O2 Del Method Room Air 11/05/23 11:41 Airway Mallampati Class: I TM Dist: >3cm Neck ROM: Full Loose/Missing/Broken Teeth: Yes (Broken and missing molars throughout) Heart: S1S2 Assessment and Plan Assessment Anesthesia Assessment: Anesthesia Plan Discussed and Chart Reviewed Final Anesthetic Review Family History of Problems with Anesthesia: No History of Problems with Anesthesia: No NPO: Yes ASA Class: III Final Preanesthetic Review: No Changes in Pt Med Stat, Meds/Allgs Chart Reviewed, Consent Obtained/Reviewed and Anes Risks/Benef Reviewed Patient Risk: Intermediate Procedure Risk: Intermediate Anesthetic Plan Anesthetic Plan: GA and Agree w/ Assess. and Plan Disposition: Standard PACU
--- NOTE | 2023-11-18 11:50 | P.OP_ITS ---
Operative Note Operative Note Date of Service: 11/18/23 Narrative: Preoperative diagnosis: 1) back pain and bilateral lumbar radiculopathy 2) lumbar degenerative disc disease Postprocedure diagnosis: 1) same as above Procedure: 1) L4-5 oblique lateral lumbar interbody fusion with discectomy, preparation of the endplates and placement of a titanium bullet cage packed with allograft, anterior to the transverse process in modified prone position, with intraoperative biplanar fluoroscopy imaging and electrophysiological monitoring 2) L4-5 posterior minimally invasive pedicle screw placement and posterior lateral instrumentation and fusion with intraoperative biplanar fluoroscopic imaging and electrophysiological monitoring 3 Injection of 10 cc of Exparel at the transverse process for a muscular erector spinae block and additional Exparel in paravertebral tissue for postop man agement Consent Informed Consent was obtained for this operation. I have explained the nature, purpose and benefits of the operation. I have discussed the risks and benefit of the operation including possible complications or adverse events with patient/family. Alternative(s) were discussed with the patient with their relative benefits and risks as well as the consequences of not accepting the op eration were included in obtaining consent. Surgeon: PRATIMA HARMAN MD, PHD Procedure Assisted By: shiraz Noel Description of Procedure: This is a complex surgery on the lumbar spine and an assistant business manager as needed for safety of the surgery for setup of instrumentation, retraction and closing. History: This 43-year-old female suffering from back pain and bilateral lumbar radiculopathy. An MRI shows severe degenerative disc disease L4-5 which is a transitional segment. The patient was offered an oblique lumbar lateral interbody fusion followed by a posterior lateral instrumented fusion L4-5. The procedure and complications were explained and the patient was consented. Procedure: The patient was brought to the operating room and endotracheally intubated. The patient was positioned on the Rigo spine table in a modified prone position for ease of access from the left side.. 2C arms were installed for fluoroscopy. Prepping and draping was done followed by timeout. The landmarks, including spinal processes, transverse processes, disc space, endplates and pedicles are identified and marked. The following steps are taken for each specified level: L4-5 level: Cage size 9 mm high and 30 mm long titanium . The patient was turned using the rotation of the surgical table so a near direct anterior lateral approach to the lumbar spine could be achieved. A small in cision was then made superior to the mid iliac crest and then using biplanar fluoroscopy visualization, under electrophysiological monitoring and stimulation, we introduced an electrophysiological probe through the retroperitoneal space into the desired disc anterior to the transverse process and then passed it into the disc space after finding a silent window. The sleeve was retained and the probe was removed, then the K wire was passed sequentially into the disc space. A dilating tube was then passed along the same route. Following this, a working channel, a working channel was then passed s equentially into the disc space. The working channel was manually held in position while a series of disc cleaning tools were passed through the channel to remove the affected disc under clear and direct biplanar fluoroscopic visualization, decompress the nerve roots and equal corticated vertebral endplates at this segment. Spontaneous EMG activity was seen when the working channel was in place and disappeared. Arthrodesis of the intervertebral space via an anterior retroperitoneal exposure was achieved through Kambin's [place] and lateral extraforaminal space. Allograft was added into the anterior disc space. The working channel was then removed. A titanium interbody cage tightly packed with allograft was then inserted into the midportion of the intervertebral disc space over a K-wire under biplanar fluoroscopic visualization and intraoperative neuro monitoring. The inter pedicular and intradiscal space was significantly enlarged and disc height was restored to worked normal anatomy there for releasing pressure on the nerve roots visual largely the spinal canal and lateral recess as well as foramen were bilateral decompressed and all bones were confined to the borders of the disc space . The following steps are then taken for each specified level: L4-5 level: Bilateral L4 and L5 screws with a diameter of 6.5 x 40 mm. The posterolateral fusion is initiated after the patient is rotated to a true prone position. The entry point to the pedicle is identified in the AP and lateral views and then the skin incision is injected with local anesthetic. We entered the pedicle with the pediguard tap after which a K-wire was introduced into the vertebral body. Additionally, I used a small periosteal decorticator along the screws to refresh the surface of the bone and facet and I put some amount of allograft for additional stability for the posterolateral fusion. Over the K-wire we insert pedicle screws bilaterally. After the screws were placed, we put the sushil in place and under fluoroscopic imaging, we locked the sushil in place and removed the screw tops and then each incision has been closed with 0 Vicryl for the fascia and a 3-0 Vicryl for the subdermal layer. Steri- Strips were used to approximate the incisions. An OpSite with Tegaderm was used to cover the incision. Final x-rays and AP and lateral projection showed good position of the interbody device and instrumentation. All sponge and needle counts were correct. The patient was extubated and transported in a stable condition to the recovery room. 2-0 Vicryl This procedure was done with the aid of a physician assistant business manager as a qualified resident was not available. Anesthesia: General Estimated Blood Loss (ml): 30 mL Specimen: None Duration of Surgery: 90 minutes Postoperative Plan: Admit to inpatient
[2023-11-18] MEDS: HYDROmorphone HCl 0.5 MG/0.5 ML SYRINGE IVPUSH ×4 (12:12→12:30)
[2023-11-18] MEDS: oxyCODONE HCl Immed Release 5 MG TABLET 10 MG PO ×2 (12:21→17:38)
[2023-11-18] MEDS: HYDROmorphone HCl 1 MG/ML SYRINGE IVPUSH (16:10)
[2023-11-18] MEDS: 0.9 % Sodium Chloride 1,000 ML 75 ML IVCONT (16:15)
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
[2023-11-18] MEDS: Omeprazole 20 MG CAPSULE.DR PO (17:39)
[2023-11-18] MEDS: Acetaminophen 1,000 MG/100 ML PIGGYBACK 400 MG IV ×2 (17:40→22:56)
[2023-11-18] MEDS: ceFAZolin Sodium/Dextrose,Iso 2 GM/50 ML PIGGYBACK IV ×2 (17:59→23:37)
[2023-11-18] MEDS: Ketorolac Tromethamine 15 MG/ML VIAL IVPUSH ×2 (18:30→23:35)
[2023-11-18] MEDS: hydrOXYzine HCL 25 MG TABLET PO (20:03)
[2023-11-19 03:03] VITALS: RESP 18
[2023-11-19] MEDS: HYDROmorphone HCl 1 MG/ML SYRINGE IVPUSH (03:03)
[2023-11-19 03:14] VITALS: BP 131/80; PULSE 64; RESP 16; TEMP 36; O2SAT 97
[2023-11-19] MEDS: Acetaminophen 1,000 MG/100 ML PIGGYBACK 400 MG IV (05:30)
[2023-11-19] MEDS: Ketorolac Tromethamine 15 MG/ML VIAL IVPUSH (05:49)
[2023-11-19] MEDS: Omeprazole 20 MG CAPSULE.DR PO (06:04)
[2023-11-19] MEDS: ceFAZolin Sodium/Dextrose,Iso 2 GM/50 ML PIGGYBACK IV (06:04)
[2023-11-19] MEDS: 0.9 % Sodium Chloride 1,000 ML 75 ML IVCONT (06:06)
[2023-11-19] MEDS: oxyCODONE HCl Immed Release 5 MG TABLET 10 MG PO (06:18)
--- NOTE | 2023-11-19 07:02 | PM.DS ---
DS: Providers Provider Date of Service: 11/19/23 Date of admission: 11/18/23 06:37 Primary care physician: Shala Shields MD DS: Summary Time Attestation Discharge Coordination Time (in mins): 30 Quality: Safe Use of Opioids Does Pt have an Active Cancer Diagnosis on the Problem List?: No Quality: Stroke Does the patient have a stroke diagnosis?: No Physical Exam Vital Signs: Vital Signs: Last Vital Signs Temp 96.8 F 11/19/23 03:14 Pulse 64 11/19/23 03:14 Resp 16 11/19/23 03:14 BP 131/80 11/19/23 03:14 Pulse Ox 97 11/19/23 03:14 O2 Del Method Room Air 11/19/23 03:14 O2 Flow Rate 2 11/18/23 13:50 FiO2 45 11/18/23 13:50 BMI result Body Mass Index 27.7 Discharge Plan Discharge Anticipated Discharge Date/Time: 11/19/23 07:02 Patient Disposition: Home, Self-Care Discharge Diagnosis: s/p L4-5 Lumbar fusion Referrals: Shala Shields MD [Primary Care Provider] - 1 Week Discharge Medications: New oxycodone 5 mg tablet 5 mg PO TID PRN (Reason: severe pain (scale score 7-10)) Qty: 20 0RF Rx Instructions: Partial Fill upon patient request. acetaminophen 500 mg tablet 1,000 mg PO Q6H PRN (Reason: moderate pain (scale score 5-6)) Qty: 42 1RF gabapentin 300 mg capsule 300 mg PO TID Qty: 30 0RF methocarbamol 750 mg tablet 750 mg PO TID Qty: 30 0RF Continued (DME) cane Device See Rx Instructions .Route Qty: 1 0RF Rx Instructions: As directed docusate sodium [Colace] 100 mg Capsule 100 mg PO BID PRN (Reason: Constipation) ferrous sulfate 325 mg (65 mg iron) Tablet 325 mg PO DAILY polyethylene glycol 3350 17 gram Powder In Packet 17 g PO DAILY PRN (Reason: Constipation) therapeutic multivitamin Tablet 1 tab PO DAILY pantoprazole 40 mg tablet,delayed release (DR/EC) 40 mg PO BID PRN (Reason: Heart Burn) hydroxyzine pamoate 25 mg capsule 25 mg PO QID PRN (Reason: anxiety) olmesartan-hydrochlorothiazide 40-25 mg tablet 1 tab PO DAILY cholecalciferol (vitamin D3) [Vitamin D3] 25 mcg (1,000 unit) Tablet 25 mcg PO DAILY Genvoya [id number] mg tablet 1 tab PO DAILY acetaminophen 500 mg Tablet 500 mg PO DAILY PRN (Reason: Arthritis) gabapentin 100 mg Capsule 400 mg PO BEDTIME naloxone 4 mg/actuation [place],Non-Aerosol 4 mg INTRANASAL Q3M PRN (Reason: overdose) Rx Instructions: spray 1 dose into ONE nostril; alternate nostrils w each dose until help arrives darunavir [Prezista] 800 mg tablet 800 mg PO DAILY Held buprenorphine-naloxone [Suboxone] 2-0.5 mg film 1 film sublingual TID Hold Instructions: Resume on 12/20/23. Discuss with prescriber, hold until narcotic pain medication is complete, or stop narcotic pain medication if resuming this medication sooner Discharge Orders: Discharge Order (Routine); Ordered 11/19/23 Ordered By: Nba Nance Diet: Advance to usual diet Activity on Discharge: As tolerated Stand Alone Forms: Patient Portal Discharge page Print Language: Tanzanian Activity Restrictions/Additional Instructions: After your spinal surgery we ask you to observe the following restrictions/guidelines: Activity: With lumbar fusion surgery it is normal to have days in the first couple of weeks where you have increased leg pain. This usually lasts 1-2 days and self resolves with the continuation of medication. Attempt to stay mobile and continue activity as tolerated. It is normal to feel some discomfort as you increase your activity, but that will improve with time. We ask you avoid heavy lifting or activities that cause pain. As a general rule, 8lbs is a safe limit for lifting right after surgery. Walk as much as you feel comfortable but not to exhaustion. You will feel extra tired the first few days after surgery. Stay well hydrated. It is OK to walk up and down stairs You may return to driving when you are off narcotics (such as vicodin, oxycodone, dilaudid, etc), and you are back to normal functional capacity. If you have any concerns please check with office before driving. Return to work is specific to each patient and each surgery, so please speak with your doctor/PA at first follow up. Please bring paperwork such as FMLA at that time if you need it filled out. Medications: It is recommended that you take Tylenol 1000 mg every 6-8 hours for the 1st week postoperatively. We will also be prescribing gabapentin 300 mg to be taken 3 times daily for the 1st month postoperatively. In addition to this, we will be prescribing methocarbamol, a muscle relaxer to be taken 3 times daily. We will give you a short supply of narcotics after surgery (usually one weeks worth). ??Please use this for breakthrough pain that is refractory to the Tylenol ibuprofen and gabapentin. If you need more please call the office but do not use more than prescribed. You will need to give our office 48 hours notice if you need narcotics refilled and we do not fill narcotics on weekends or evenings. If you are on a narcotic, it is a good idea to take a stool softener such as colace or senna to avoid constipation If you take blood thinner such as aspirin, Plavix, Coumadin, Effient, Eliquis etc for conditions such as Afib, DVT, Pulmonary embolus, coronary disease, stents etc please speak with your surgeon about specific details as to when you can resume these medications. You can resume NSAIDs on post op day 1 (eg: Motrin, Naproxen, etc). Follow up: Please call the office, , after surgery to arrange a 3 week follow up for wound check. Wound Care: You may remove your dressing on the first day after surgery. ?You may ?leave open to air. Please do not remove the steri strips underneath. they will fall off on their own in one week. IT IS NORMAL FOR THE WOUND TO OOZE OR BE BLOODY FOR A FEW DAYS AFTER SURGERY. ?IF THIS HAPPENS JUST PLACE NEW DRESSING OVER IT TO AVOID STAINING CLOTHES. You may shower on post op day # 1 We ask that you do not let the water soak the wound. If it does get wet, just towel dry lightly. Please do not scrub your incision or place any type of chemical/ointment on the wound. No tub baths, pools or jacuzzis for one month. If you have any leaking or redness from your wound, or fevers, please call office Care Plan Goals: Return to normal activity as tolerated. Health Concerns: None. Plan of Treatment: Follow-up in clinic in 2-3 weeks. Assessment: POD: 1 Procedure: L4-5 Transkambin lumbar fusion Megan was seen this morning sitting upright in bed on 3-south eating breakfast. She reports she has been up oob, walking around, is otherwise doing well. She still reports quite a bit of low back pain (axial) but denies any radicular pain. She has good relief with pain medication. She is voiding well, tolerating diet. Afebrile, vital signs stable. No new neurological deficits. Full strength 5/5 UE / LE. Back dressings have some staining without signs of hematoma. No active sanguineous drainage. Area is dry. Plan: Patient meets criteria to be medically discharged home. He was seen at bedside with Dr. Manjarrez. A prescription for oxycodone, gabapentin, methocarbamol, Tylenol was sent to her [facility] pharmacy on [facility]. Nba Manjarrez MD,PhD [facility]
[2023-11-19 07:38] VITALS: BP 130/85; PULSE 79; RESP 18; TEMP 36.6; O2SAT 100
[2023-11-19 08:34] VITALS: BP 130/85; PULSE 79; O2SAT 100
--- NOTE | 2023-11-19 08:55 | W.MHC.F2F ---
Service Date Service Date: 11/19/23 Encounter Date of encounter: 11/19/23 Reasons for Services Signs and symptoms assessed: s/p L4-5 lumbar fusion Reason for physical therapy: home safety and mobility, therapeutic exercises, gait/transfer training and ADL training Homebound: Leaving the home is medically contraindicated at this time without the asist of a device and/or another person due th the listed conditions above and below. Reason homebound: unsteady gait / fall risk, pain with transfers and weakness related to hospital stay Certification: Based on the above findings, I certify that this patient is confined to the home and needs intermittent senior living care, physical therapy and/or speech therapy, or continues to need occupational therapy. The patient is under my care, and I have initiated the establishment of the plan of care. The patient will be followed by a physician who will periodically review the plan of care. Time Spent With Patient Time: Total time managing care of this patient today ___15_ minutes.
[2023-11-19] MEDS: DULoxetine HCl 60 MG CAPSULE.DR PO (09:00)
[2023-11-19] MEDS: methocarbamoL 750 MG TABLET PO (09:01)
[2023-11-19] MEDS: Ferrous Sulfate 324 MG TABLET.DR PO (09:02)
[2023-11-19] MEDS: Gabapentin 300 MG CAPSULE PO (09:02)
[2023-11-19] MEDS: Cholecalciferol (Vitamin D3) 25 MCG TABLET PO (09:02)
[2023-11-19] MEDS: oxyCODONE HCl Immed Release 5 MG TABLET PO (09:02)
--- NOTE | 2023-11-19 11:55 | MHC.CM.PN ---
Patient lives in an apartment w/ 2 adult sons. Did not use [employer]'s CARDIOPULMONARY TECHNOLOGIST, but son purchased a walker today for patient. No other DME in the home. No current services. PCP Shala Shields Patient reports she has an HCP naming her sisters as [facility]. Copy requested. DP: PT rec home w/ services. [facility] has accepted and will call patient to schedule. Patient aware. Patient is medically cleared for dc. Family transport home.
--- NOTE | 2023-11-19 14:46 | HO.POSTANES ---
Post Anesthesia Evaluation Post Anesthesia Evaluation Date of Service: 11/19/23 Vital Signs: Vital Signs Temp Pulse Resp BP Pulse Ox O2 Del Method 11/19/23 08:34 79 130/85 100 11/19/23 07:38 97.9 F 79 18 130/85 100 Room Air 11/19/23 03:14 96.8 F 64 16 131/80 97 Room Air 11/19/23 03:03 18 Anesthesia: General Endotracheal-GETA Mental Status: Awake Pain Control: Satisfactory Nausea/Vomiting: None Hydration: Adequate Anesthesia-Related Issues: No Anes. Related Issues Comments: called pt at hime doing well
== END 2023-11-19 10:44 | disposition home health service (06) | DRG 304 ==
LOC: HO.SSSA 06:37 → HO.S3 14:39
PROVIDERS: Admitting Provider Neurological Surgery; PCP Internal Medicine; Visit Provider Neurological Surgery
PROC: 0SG00A0 Fusion of Lumbar Vertebral Joint with Interbody Fusion Device, Anterior Approach, Anterior Column, Open Approach (ICD-10-PCS; principal; 2023-11-18 07:30)
DX: M51.16 Intervertebral disc disorders with radiculopathy, lumbar region (principal); Z21 Asymptomatic human immunodeficiency virus [HIV] infection status; Z79.899 Other long term (current) drug therapy
CPT/HCPCS: 86850; 86900; 86901; 93005; 97116; 97161; C1713; C1889; C9290; J0131; J0665; J0690; J1100; J1170; J1885; J2060; J2250; J2371; J2405; J2704; J3010; L8699

== ENCOUNTER → 2023-11-18 06:37 | Outpatient (BNV) | payer OTHER, SELFPAY | PROVIDERS: Admitting Provider Neurological Surgery; PCP Internal Medicine; Visit Provider Neurological Surgery | DX: M54.16 Radiculopathy, lumbar region (principal) | CPT/HCPCS: 20930; 22558; 22612; 22840; 22853; 63056; 99499; G0180 ==

== ENCOUNTER 2023-12-08 12:52 | Outpatient (AMB) | payer OTHER, SELFPAY ==
--- NOTE | 2023-12-08 12:59 | HO.SPINEOV ---
Intake Visit Reasons: 1st post op Intake Note: Ms. 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 To recap she had a very difficult postoperative course, and called the on-call service over the weekend requesting additional pain medications. Her regimen was switched from oxycodone to Dilaudid. She was able to discontinue this medication after the prescription was completed. She is now taking gabapentin monotherapy and feels very well. She still has some radicular pains on her left lower extremity which has reduced about 50% since surgery. She still is ambulating with the assistance of a walker, mostly for comfort. She inquired about returning to work in the coming weeks, and requested a letter to return at the beginning of December. She works a job that is not physically demanding. 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 No new neurological deficits. The patient is able to ambulate with the assistance of a walker and braces herself on the chair to stand. Her posterior incision sites appear clean, dry, and well healing with no signs of drainage. I would like to follow up with the patient again in 6 weeks for her 2nd postoperative visit. At that time we will get x-rays to review with the patient. Nba Manjarrez MD,PhD [facility] Coding Level of Care Code Global (08688) Diagnoses S/P lumbar fusion Z98.1
== END 2023-12-08 13:37 | disposition home or self-care (01) ==
PROVIDERS: PCP Internal Medicine; Visit Provider Physician Assistant
DX: Z98.1 Arthrodesis status (principal)
CPT/HCPCS: 99024

== ENCOUNTER → 2023-12-08 12:52 | Outpatient (BNVA) | payer OTHER, SELFPAY | PROVIDERS: PCP Internal Medicine; Visit Provider Physician Assistant | DX: Z48.89 Encounter for other specified surgical aftercare (principal); Z98.1 Arthrodesis status | CPT/HCPCS: 99212 ==

== ENCOUNTER 2024-01-20 12:29 | Outpatient (REF) | payer OTHER, SELFPAY ==
--- NOTE | ~2024-01-20 | XR_ITS ---
EXAMINATION: XR LUMBAR SPINE CLINICAL INFORMATION: Back pain. Postop. COMPARISON: Lumbar spine radiographs dated 08/29/2023. TECHNIQUE: AP, lateral, cone-down, flexion, and extension views of the lumbar spine. FINDINGS: Posterior stabilization and intervertebral disc hardware at L4-L5 without hardware fracture or perihardware lucency to suggest loosening or infection. Normal vertebral body alignment. The lumbar lordosis is maintained. No significant subluxation with flexion or extension. No loss of vertebral body height. Mild multilevel loss of intervertebral disc height with endplate osteophytes, most prominent at L2-L3, unchanged when compared to the prior examination. No concerning lytic or blastic osseous lesion. XR/XR lumbar spine 4V min IMPRESSION: 1. Posterior stabilization and intervertebral disc hardware at L4-L5 without evidence of hardware complication. 2. No significant subluxation with flexion or extension. Electronically signed by: Tyler David MD 02/05/2024 08:57 PM EDT
== END 2024-01-20 12:30 | disposition home or self-care (01) ==
LOC: HO.HOSX 12:29
PROVIDERS: PCP Internal Medicine; Visit Provider Physician Assistant
DX: Z98.1 Arthrodesis status (principal)
CPT/HCPCS: 72110; 99212

== ENCOUNTER 2024-02-06 14:58 | Outpatient (AMB) | payer OTHER, SELFPAY ==
--- NOTE | 2024-02-06 15:00 | HO.SPINEOV ---
Intake Visit Reasons: Xray f/u 01/20/24 Intake Note: Ms. 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 She underwent a L4-5 trans Kambin fusion in November. She is doing well. She returned to work. We reviewed her x-rays that show good position of the interbody device instrumentation. She has a mild levoscoliosis above the fusion which is stable compared to preoperatively. Would like to follow-up in 4 months with a new set of x-rays. Magdi Manjarrez MD, PhD Spine Fellowship Trained Neurosurgeon Director, [facility] Coding Level of Care Code Global (61949) Diagnoses S/P lumbar fusion Z98.1
== END 2024-02-06 15:34 | disposition home or self-care (01) ==
PROVIDERS: PCP Internal Medicine; Visit Provider Neurological Surgery
DX: Z98.1 Arthrodesis status (principal)
CPT/HCPCS: 99024

== ENCOUNTER → 2024-02-06 14:58 | Outpatient (BNVA) | payer OTHER, SELFPAY | PROVIDERS: PCP Internal Medicine; Visit Provider Neurological Surgery | DX: Z98.1 Arthrodesis status (principal) | CPT/HCPCS: 99212 ==

== ENCOUNTER 2024-03-04 13:40 | Outpatient (AMB) | payer MEDICAID, SELFPAY ==
--- NOTE | 2024-03-04 13:53 | MHC.OFFVIS ---
Intake Visit Reasons: OV - B/L hip pain Intake Note: Megan is a 43 year old female who presents today for a follow up of her bilateral hip OA. Patient was previously booked for a Right YELITZA in October of this year but she decided to cancel as she was not ready to pursue surgical intervention. She recently had a L4-5 transkambin lumbar fusion was completed on 11/17 with the spine office Allergies amlodipine Allergy (Verified 03/04/24 13:55) Swelling azithromycin Allergy (Verified 03/04/24 13:55) Rash rifabutin Allergy (Verified 03/04/24 13:55) Rash HPI HPI OV - B/L hip pain: Details: This is a 43-year-old woman who comes in today with right hip AVN with collapse and has recently had a lumbar fusion surgery. She states she feels half better than before the surgery which is encouraging. Her radiating pain and back pain have improved dramatically but she still has right groin pain and difficulty ambulating. She has pain when she tries to ambulate and pain at night and pain with activity. [facility] [place] Medical History Back pain Numbness Elevated cholesterol Urinary incontinence Rosacea Osteoarthritis Lumbar radiculopathy Anemia Fibromyalgia EtOH dependence Cervical dysplasia Arthralgia of hip, right Depression HIV (human immunodeficiency virus infection) HTN (hypertension) Surgical History (Updated 12/08/23 @ 13:40 by RAYSA Molina) Hx of left knee surgery History of tubal ligation Hx of cone biopsy of cervix History of esophagogastroduodenoscopy (EGD) Social History Household Members: Children Housing: Apartment Are you a primary emergency care tech to a significant other at home: No Do you presently have visiting nurse or other home services: No Patient Tobacco Use Status: Never used Tobacco Substance Use Type: Marijuana service: No Current occupational status: employed 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 Severe right hip osteoarthritis with a moderate joint effusion and prominent synovitis. No stress reaction, fracture, or avascular necrosis. Assessment & Plan Assessment & Plan (1) S/P lumbar fusion: Code(s): Z98.1 - Arthrodesis status Category: Surgical Plan: Doing well. (2) Osteoarthritis of right hip: Code(s): M16.11 - Unilateral primary osteoarthritis, right hip Category: Medical Qualifiers: Osteoarthritis type: primary Qualified Code(s): M16.11 - Unilateral primary osteoarthritis, right hip Plan: This is a 43-year-old woman with right hip AVN with collapse and resulting severe osteoarthritis. She has 43 but remains a candidate for arthroplasty. We have discussed this in the past multiple times in she understands the procedure. She understands the risk of infection and the risk of extended recovery given her fibromyalgia as well as the standard risks of surgery including, but not limited to, the risk of infection, dislocation, fracture, need for further surgery, aseptic loosening as well as medical complications. I answered all the questions and we will proceed forward accordingly. Orders: Orders PT Evaluation and Treatment 03/04/24 M16.11 - Unilateral primary osteoarthritis, right hip, Z98.1 - Arthrodesis status Coding Level of Care Code Est Pt Level 4 (08913) Diagnoses S/P lumbar fusion Z98.1 Primary osteoarthritis of right hip M16.11 Osteoarthritis type: primary
== END 2024-03-04 14:15 | disposition home or self-care (01) ==
PROVIDERS: PCP Internal Medicine; Visit Provider Orthopaedic Surgery
DX: M16.11 Unilateral primary osteoarthritis, right hip (principal); Z98.1 Arthrodesis status
CPT/HCPCS: 99214

== ENCOUNTER → 2024-03-04 13:40 | Outpatient (BNVA) | payer MEDICAID, SELFPAY | PROVIDERS: PCP Internal Medicine; Visit Provider Orthopaedic Surgery | DX: M16.0 Bilateral primary osteoarthritis of hip (principal); Z98.1 Arthrodesis status | CPT/HCPCS: 99212 ==

== ENCOUNTER 2024-04-18 14:13 | Day surgery (SDC) | payer OTHER, SELFPAY ==
[2024-04-18 14:15] VITALS: BP 154/114; PULSE 125; RESP 20; TEMP 36.5; O2SAT 100; BMI 28.3
--- NOTE | 2024-04-18 14:16 | ED_ITS ---
HPI - General Adult General Chief complaint: Nausea/Vomiting/Diarrhea Stated complaint: vomiting Time Seen by Provider: 04/18/24 14:23 Source: patient Mode of arrival: ambulatory Limitations: no limitations History of Present Illness ED Provider: Ann Limon PA-C HPI narrative: 43 yo female with history of fibromyalgia presents to the ER for evaluation of a piece of steak stuck in her throat after choking on it last night when she was out to eat at [facility]. She states she had multiple episodes of vomiting last night when she got home. This morning she was unable to tolerate any liquids or solids. She has been vomiting every time she tries to ear/drink. She feels like the steak is stuck in her esophagus down in her chest. No abdominal pain MD complaint: esophageal FB Onset (ago): hour(s) Location: chest Radiation: non-radiation Severity: moderate Quality: aching Pain Consistency: constant Relieving factors: none Exacerbating factors: eating Associated symptoms: weakness Treatments prior to arrival: none Related Data Home Medications ?Medication ?Instructions ?Recorded ?Confirmed darunavir 800 mg tablet (Prezista) 800 mg PO DAILY 03/31/23 11/18/23 cholecalciferol (vitamin D3) 25 25 mcg PO DAILY 11/05/23 11/18/23 mcg (1,000 unit) tablet (Vitamin D3) docusate sodium 100 mg capsule 100 mg PO BID PRN Constipation 11/05/23 11/18/23 (Colace) elviteg 150 mg-cob 150 mg-emtricit 1 tab PO DAILY 11/05/23 11/18/23 200 mg-tenofo alafenam 10 mg tablet (Genvoya) ferrous sulfate 325 mg (65 mg 325 mg PO DAILY 11/05/23 11/18/23 iron) tablet hydroxyzine pamoate 25 mg capsule 25 mg PO QID PRN anxiety 11/05/23 11/18/23 olmesartan 40 1 tab PO DAILY 11/05/23 11/18/23 mg-hydrochlorothiazide 25 mg tablet pantoprazole 40 mg tablet,delayed 40 mg PO BID PRN Heart Burn 11/05/23 11/18/23 release polyethylene glycol 3350 17 gram 17 g PO DAILY PRN Constipation 11/05/23 11/18/23 oral powder packet therapeutic multivitamin 1 tab PO DAILY 11/05/23 11/18/23 acetaminophen 500 mg tablet 500 mg PO DAILY PRN Arthritis 11/18/23 11/18/23 buprenorphine 2 mg-naloxone 0.5 mg 1 film sublingual TID 11/18/23 11/18/23 sublingual film (Suboxone) gabapentin 100 mg capsule 400 mg PO BEDTIME 11/18/23 11/18/23 naloxone 4 mg/actuation nasal spray 4 mg intranasal Q3M PRN overdose 11/18/23 11/18/23 Previous Rx's ?Medication ?Instructions ?Recorded cane #1 ea 06/28/22 acetaminophen 500 mg tablet 1,000 mg (2 x 500 mg) PO Q6H PRN 11/19/23 moderate pain (scale score 5-6) #42 tabs gabapentin 300 mg capsule 300 mg PO TID #30 caps 11/19/23 methocarbamol 750 mg tablet 750 mg PO TID #30 tabs 11/19/23 hydromorphone 4 mg tablet See Rx Instructions PO .COMPLEX 11/21/23 #20 tabs Allergies Allergy/AdvReac Type Severity Reaction Status Date / Time amlodipine Allergy Swelling Verified 04/18/24 14:17 azithromycin Allergy Rash Verified 04/18/24 14:17 rifabutin Allergy Rash Verified 04/18/24 14:17 Review of Systems 2 Review of Systems: Yes all other systems are reviewed and are negative [facility] Past Medical History Medical History (Updated 04/18/24 @ 15:30 by RAYSA Duarte) Back pain Numbness Elevated cholesterol Urinary incontinence Rosacea Osteoarthritis Lumbar radiculopathy Anemia Fibromyalgia EtOH dependence Cervical dysplasia Arthralgia of hip, right Depression HIV (human immunodeficiency virus infection) HTN (hypertension) Surgical History (Updated 12/08/23 @ 13:40 by RAYSA Molina) Hx of left knee surgery History of tubal ligation Hx of cone biopsy of cervix History of esophagogastroduodenoscopy (EGD) Social History Social History Household Members: Children Housing: Apartment Are you a primary career development coordinator/teacher to a significant other at home: No Do you presently have visiting nurse or other home services: No Alcohol intake: current Alcohol intake frequency: holidays/special occasions only Patient Tobacco Use Status: Never used Tobacco Smoked in Last 30 Days: No Use of substances other than those prescribed or required for medical reasons: No Substance Use Type: Marijuana Advance Directives: No Advance Directives Information Provided: Yes service: No Current occupational status: employed 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 Oriented X3. No acute distress. Head: normocephalic, atraumatic. Eyes: Pupils equal, round and reactive to light. ENT: Pharynx normal. No tonsillar swelling or exudate. Neck: Normal inspection. Neck supple. CVS: Normal heart rate and rhythm. Pulses normal. Respiratory: No respiratory distress. Breath sounds normal. Abdomen: Soft and nontender. +BS x4 Skin: Skin warm and dry. Normal skin color. Normal skin turgor. No rashes. Extremities: No lower extremity edema. No joint swelling. Neuro/psych: Oriented X 3. grossly normal, nonfocal. Normal speech and cognition. Course Course Course Narrative: RME performed by Sweta Rowell PA-C. Patient is a 43 year old assigned female at presenting to the emergency department with nausea and vomiting. Patient states that she had steak that may be stuck. Detailed physical exam and review of systems are deferred to the manager primary. Labs ordered. manager adult aware. Medications Administered Discontinued Medications Generic Name Dose Route Start Last Admin Trade Name Freq PRN Reason Stop Dose Admin Nitroglycerin 0.4 mg 04/18/24 14:23 04/18/24 14:32 Nitroglycerin 0.4 Mg Tab.Subl SUBLINGUAL 04/18/24 14:24 0.4 mg ONCE ONE Administration Ondansetron HCl 4 mg 04/18/24 15:29 04/18/24 15:35 Ondansetron Hcl 4 Mg/2 Ml Vial IVPUSH 04/18/24 15:30 4 mg ONCE ONE Administration Medical Decision Making Medical Decision Making [facility] Narrative: 43-year-old female presents to the ER for evaluation of an esophageal food bolus. Unable to tolerate p.o. without recurrent vomiting. Sublingual nitro glycerin diluted in water and patient was able to tolerate this, however she did not have any relief. Dr. Muniz called and will plan for EGD in the OR for FB removal. patient updated on plan of care. Differential Diagnosis Differential Diagnoses: The differential diagnosis associated with the presentation includes esophageal spasm, esophageal food bolus, stricture, web, tumor Admission/Observation Consideration of admission/observation: Escalation of care including admission/observation considered Consult Healthcare Provider Management of the patient was discussed with: Coating Mixer Tender Dr. Muniz Lab Data [facility] Lab Attestation statement: I reviewed the patient's lab results. unremarkable 04/18/24 14:43 04/18/24 14:43 Labs: Lab Results 04/18/24 Range/Units 14:43 WBC 5.1 (4.8-10.8) X10*3/uL RBC 4.69 (4.20-5.50) X10*6/uL Hgb 12.9 D (12.0-16.0) g/dl Hct 38.5 D (37.0-47.0) % MCV 82.1 (80.0-98.0) fL MCH 27.5 (27.0-33.0) pg MCHC 33.5 (31.0-35.0) g/dl RDW 15.2 (11.0-16.0) % Plt Count 303 (160-400) X10*3/uL MPV 9.2 L (9.4-12.3) fL Immature Gran % (Auto) 0.4 (0.0-0.4) % Neut % (Auto) 62.0 (45-73) % Lymph % (Auto) 31.5 (20-40) % [place] % (Auto) 5.1 (2-11) % Eos % (Auto) 0.4 (0-4) % Baso % (Auto) 0.6 (0-2) % Lymph # (Auto) 1.6 (1.2-4.9) X10*3/uL [place] # (Auto) 0.3 (0.1-1.2) X10*3/uL Eos # (Auto) 0.0 (0.0-0.4) X10*3/uL Baso # (Auto) 0.0 (0.0-0.2) X10*3/uL Abs Immat Gran (auto) 0.02 (0.00-0.03) X10*3/uL Absolute Neuts (auto) 3.2 (2.0-8.3) x10*3/uL Absolute Nucleated RBC 0.000 (0.0-0.012) X10*3/uL Nucleated RBC % (auto) 0.0 (0.0-0.2) /100WBC PT 12.1 (10.9-12.4) SEC INR 1.0 (0.9-1.1) APTT 36.6 (26.0-36.8) SEC Sodium 139 (135-145) mmol/L Potassium 4.0 (3.3-5.1) mmol/L Chloride 105 (96-108) mmol/L Carbon Dioxide 25 (22-29) mmol/L Anion Gap 13 (12-20) BUN 13 (9-16) mg/dL Creatinine 0.66 (0.5-1.4) mg/dL Estim Creat Clear Calc 110.5 Estimated GFR > 60 Random Glucose 109 (60-115) mg/dL Calcium 9.6 (8.4-10.2) mg/dL Magnesium 1.9 (1.6-2.6) mg/dL Total Bilirubin 0.5 (0.0-1.0) mg/dL AST 21 (5-31) U/L ALT 11 (0-31) U/L Alkaline Phosphatase 104 (39-117) U/L Total Protein 7.0 (6.5-8.0) g/dL Albumin 3.8 (3.5-5.0) g/dL Influenza Type A (PCR) NEGATIVE (Negative) Influenza Type B (PCR) NEGATIVE (Negative) RSV RNA Qual (PCR) NEGATIVE (Negative) SARS-CoV-2 RNA (RT-PCR) NEGATIVE (Negative) Tests considered The following testing was considered but not selected: CT soft tissue of the neck considered Prescription Management I considered prescription management with: Other (nitroglycerin) Critical Care Time Critical Care Time Critical Care Time: No Discharge Plan Discharge Clinical Impression: Food impaction of esophagus Qualifiers: Encounter type: initial encounter Qualified Code(s): T18.128A - Food in esophagus causing other injury, initial encounter Patient Disposition: Admitted As Inpatient
[2024-04-18] MEDS: Nitroglycerin 0.4 MG TAB.SUBL SUBLINGUAL (14:32)
[2024-04-18 14:48] LABS: MANUAL DIFF FLAG NO
[2024-04-18 14:55] LABS: Basophils Percent Auto 0.6 % (0-2); Eosinophils Percent Auto 0.4 % (0-4); Hematocrit 38.5 % (37.0-47.0); Hemoglobin 12.9 g/dl (12.0-16.0); Imm Gran Abs Auto 0.02 X10*3/uL (0.00-0.03); Imm Gran Pct Auto 0.4 % (0.0-0.4); Lymphocytes Absolute Auto 1.6 X10*3/uL (1.2-4.9); Lymphocytes Percent Auto 31.5 % (20-40); Mean Corpuscular HGB Conc 33.5 g/dl (31.0-35.0); Mean Corpuscular Hemoglobin 27.5 pg (27.0-33.0); Mean Corpuscular Volume 82.1 fL (80.0-98.0); Mean Platelet Volume 9.2 fL (9.4-12.3); Monocytes Absolute Auto 0.3 X10*3/uL (0.1-1.2); Monocytes Percent Auto 5.1 % (2-11); Neutrophils Absolute Auto 3.2 x10*3/uL (2.0-8.3); Platelet Count 303 X10*3/uL (160-400); Red Blood Count 4.69 X10*6/uL (4.20-5.50); Red Cell Distribution Width 15.2 % (11.0-16.0); White Blood Count 5.1 X10*3/uL (4.8-10.8)
[2024-04-18 14:56] LABS: Prothrombin Time 12.1 SEC (10.9-12.4)
[2024-04-18 14:59] LABS: Partial Thromboplastin Time 36.6 SEC (26.0-36.8)
[2024-04-18 15:02] LABS: Alanine Aminotransferase 11 U/L (0-31); Albumin Level 3.8 g/dL (3.5-5.0); Alkaline Phosphatase 104 U/L (39-117); Anion Gap 13 (12-20); Aspartate Amino Transferase 21 U/L (5-31); Bilirubin Total 0.5 mg/dL (0.0-1.0); Blood Urea Nitrogen 13 mg/dL (9-16); Calcium 9.6 mg/dL (8.4-10.2); Carbon Dioxide 25 mmol/L (22-29); Chloride 105 mmol/L (96-108); Creatinine Clr Calc Pharmacy 110.5; Estimated Glomerular Filt Rate > 60; Glucose Random 109 mg/dL (60-115); Magnesium 1.9 mg/dL (1.6-2.6); Sodium 139 mmol/L (135-145)
[2024-04-18 15:35] LABS: Influenza A PCR NEGATIVE (Negative); Influenza B PCR NEGATIVE (Negative); Resp Syncy Virus RNA Qual PCR NEGATIVE (Negative); SARS COV2 PCR INHOUSE NEGATIVE (Negative)
[2024-04-18] MEDS: ondansetron HCL 4 MG/2 ML VIAL IVPUSH (15:35)
--- NOTE | 2024-04-18 16:13 | PC.NURSE ---
RN to RN report given to Cheri in PACU, all questions answered, patient to be transferred over to OR once transport available.
[2024-04-18 16:19] VITALS: BP 126/81; PULSE 81; RESP 16; TEMP 36.7; O2SAT 99
--- NOTE | 2024-04-18 16:32 | MHC.SHP ---
Pre-Procedural Eval Section A - 24 Hr Update-Section A only Date of Service: 04/18/24 The patient is an INPATIENT: No Changes since office visit: No Cold of Flu in the past 2 weeks, No New Medical Problems, No Changes in Medication and No Patient answered all questions The patient has been examined within 24 hours of the surgical procedure. The History & Physical has been completed within 30 days and I have reviewed it.: Yes Section B - Complete if H&P > 30 days Chief Complaint: vomiting Allergies: Allergies Allergy/AdvReac Type Severity Reaction Status Date / Time amlodipine Allergy Swelling Verified 04/18/24 14:17 azithromycin Allergy Rash Verified 04/18/24 14:17 rifabutin Allergy Rash Verified 04/18/24 14:17 Plan I have reviewed the history and physical and performed a pertinent physical examination on my patient. No changes have occurred unless specified. Time Spent With Patient Time: Total time managing care of this patient today ____ minutes.
--- NOTE | 2024-04-18 16:43 | P.CONAN_ITS ---
HPI - Anesthesia Eval Consult details Narrative: esophageal food bolus PMFSH Active Problems Active Problems: All Active Problems Food impaction of esophagus (Acute) S/P lumbar fusion (Acute) Other bilateral secondary osteoarthritis of hip (Acute) Lumbar radiculopathy (Acute) Fibromyalgia (Acute) Osteoarthritis of right hip (Acute) Piriformis syndrome of right side (Acute) Tendinopathy of right gluteus medius (Acute) Arthralgia of right hip (Acute) COVID-19 (Acute) Past Medical History Medical History (Updated 04/18/24 @ 15:30 by RAYSA Duarte) Back pain Numbness Elevated cholesterol Urinary incontinence Rosacea Osteoarthritis Lumbar radiculopathy Anemia Fibromyalgia EtOH dependence Cervical dysplasia Arthralgia of hip, right Depression HIV (human immunodeficiency virus infection) HTN (hypertension) Family History Family history of problems with anesthesia: No Surgical History Surgical History (Updated 12/08/23 @ 13:40 by RAYSA Molina) Hx of left knee surgery History of tubal ligation Hx of cone biopsy of cervix History of esophagogastroduodenoscopy (EGD) History of Problems with Anesthesia: No Social History Social History Household Members: Children Housing: Apartment Are you a primary outdoor emergency care technician to a significant other at home: No Do you presently have visiting nurse or other home services: No Alcohol intake: current Alcohol intake frequency: holidays/special occasions only Patient Tobacco Use Status: Never used Tobacco Smoked in Last 30 Days: No Use of substances other than those prescribed or required for medical reasons: No Substance Use Type: Marijuana Advance Directives: No Advance Directives Information Provided: Yes service: No Current occupational status: employed 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 Allergies Allergy/AdvReac Type Severity Reaction Status Date / Time amlodipine Allergy Swelling Verified 04/18/24 14:17 azithromycin Allergy Rash Verified 04/18/24 14:17 rifabutin Allergy Rash Verified 04/18/24 14:17 Home Medications ?Medication ?Instructions ?Recorded ?Confirmed ?Last Taken ?Type darunavir 800 mg tablet (Prezista) 800 mg PO DAILY 03/31/23 11/18/23 11/17/23 History cholecalciferol (vitamin D3) 25 25 mcg PO DAILY 06/11/18/23 11/17/23 History mcg (1,000 unit) tablet (Vitamin D3) docusate sodium 100 mg capsule 100 mg PO BID PRN Constipation 11/05/23 11/18/23 Unknown History (Colace) elviteg 150 mg-cob 150 mg-emtricit 1 tab PO DAILY 11/05/23 11/18/23 11/17/23 History 200 mg-tenofo alafenam 10 mg tablet (Genvoya) ferrous sulfate 325 mg (65 mg 325 mg PO DAILY 11/05/23 11/18/23 11/17/23 History iron) tablet hydroxyzine pamoate 25 mg capsule 25 mg PO QID PRN anxiety 11/05/23 11/18/23 Unknown History olmesartan 40 1 tab PO DAILY 11/05/23 11/18/23 11/17/23 History mg-hydrochlorothiazide 25 mg tablet pantoprazole 40 mg tablet,delayed 40 mg PO BID PRN Heart Burn 11/05/23 11/18/23 Unknown History release polyethylene glycol 3350 17 gram 17 g PO DAILY PRN Constipation 11/05/23 11/18/23 Unknown History oral powder packet therapeutic multivitamin 1 tab PO DAILY 11/05/23 11/18/23 11/17/23 History acetaminophen 500 mg tablet 500 mg PO DAILY PRN Arthritis 11/18/23 11/18/23 Unknown History buprenorphine 2 mg-naloxone 0.5 mg 1 film sublingual TID 11/18/23 11/18/23 11/17/23 History sublingual film (Suboxone) gabapentin 100 mg capsule 400 mg PO BEDTIME 11/18/23 11/18/23 Unknown History naloxone 4 mg/actuation nasal spray 4 mg intranasal Q3M PRN overdose 11/18/23 11/18/23 Unknown History Exam Height,Weight and Vital Signs: Height 5 ft 5 in Weight 77.111 kg Last Vital Signs Temp 98.1 F 04/18/24 16:19 Pulse 81 04/18/24 16:19 Resp 16 04/18/24 16:19 BP 126/81 04/18/24 16:19 Pulse Ox 99 04/18/24 16:19 O2 Del Method Room Air 04/18/24 16:19 Pertinent Lab Results Pertinent Lab Results: Laboratory Tests 04/18/24 14:43 WBC 5.1 RBC 4.69 Hgb 12.9 D Hct 38.5 D MCV 82.1 MCH 27.5 MCHC 33.5 RDW 15.2 Plt Count 303 MPV 9.2 L Immature Gran % (Auto) 0.4 Neut % (Auto) 62.0 Lymph % (Auto) 31.5 [place] % (Auto) 5.1 Eos % (Auto) 0.4 Baso % (Auto) 0.6 Lymph # (Auto) 1.6 [place] # (Auto) 0.3 Eos # (Auto) 0.0 Baso # (Auto) 0.0 Abs Immat Gran (auto) 0.02 Absolute Neuts (auto) 3.2 Absolute Nucleated RBC 0.000 Nucleated RBC % (auto) 0.0 PT 12.1 INR 1.0 APTT 36.6 Sodium 139 Potassium 4.0 Chloride 105 Carbon Dioxide 25 Anion Gap 13 BUN 13 Creatinine 0.66 Estim Creat Clear Calc 110.5 Estimated GFR > 60 Random Glucose 109 Calcium 9.6 Magnesium 1.9 Total Bilirubin 0.5 AST 21 ALT 11 Alkaline Phosphatase 104 Total Protein 7.0 Albumin 3.8 Influenza Type A (PCR) NEGATIVE Influenza Type B (PCR) NEGATIVE RSV RNA Qual (PCR) NEGATIVE SARS-CoV-2 RNA (RT-PCR) NEGATIVE Airway Mallampati Class: II TM Dist: >3cm Neck ROM: Full Loose/Missing/Broken Teeth: No Heart: RRR Lungs: cta Assessment and Plan Assessment Anesthesia Assessment: Anesthesia Plan Discussed and Chart Reviewed Final Anesthetic Review Family History of Problems with Anesthesia: No History of Problems with Anesthesia: No NPO: No ASA Class: II and Emergency Final Preanesthetic Review: No Changes in Pt Med Stat, Meds/Allgs Chart Reviewed, Consent Obtained/Reviewed and Anes Risks/Benef Reviewed Patient Risk: Intermediate Procedure Risk: Low Anesthetic Plan Anesthetic Plan: MAC: Disposition: Standard PACU
[2024-04-18 16:48] VITALS: BP 128/77; PULSE 76; RESP 15; TEMP 36.2; O2SAT 98
[2024-04-18 17:03] VITALS: BP 133/85; PULSE 73; RESP 18; TEMP 36.2; O2SAT 98
--- NOTE | 2024-04-18 18:00 | PM.OP ---
Brief Operative Note Date of Service: 04/18/24 Pre-op diagnosis: fb esophagus Post-op diagnosis: same Procedure: egd Surgeon: Armani Muniz MD Anesthesia: MAC Was an State Director used for this Procedure?: No Estimated blood loss (mL): 0 Pathology: none sent Condition: stable Disposition: PACU
--- NOTE | 2024-04-18 23:20 | CONS_ITS ---
DATE OF SERVICE: 04/18/2024 REFERRING PHYSICIAN: RAYSA Duarte REASON FOR CONSULTATION: Food impaction in the esophagus. HISTORY OF PRESENT ILLNESS: The patient is a pleasant 43-year-old woman who presented to the emergency room today with inability to swallow since last night when she ingested steak. She denies any prior history of this type of impaction. She has a history of gastroesophageal reflux disease for which she takes omeprazole. Evaluation in the Emergency Department was undertaken with laboratory studies, which were basically normal. PAST MEDICAL HISTORY: 1. HIV infection. 2. Hypertension. 3. Depression. 4. Anemia. 5. Fibromyalgia. 6. Hyperlipidemia. 7. Back pain. CURRENT MEDICATIONS: Her current medication list is reviewed in the chart. ALLERGIES: MULTIPLE MEDICATION ALLERGIES ARE REVIEWED. FAMILY HISTORY: This is reviewed with the patient and is negative for GI malignancy. SOCIAL HISTORY: There is no current tobacco, alcohol, or substance abuse according to the patient. REVIEW OF SYSTEMS: SKIN: No pruritus. HEENT: Negative. CARDIOPULMONARY: She denies shortness of breath or chest pain. GASTROINTESTINAL: As above. GENITOURINARY: Negative. NEUROPSYCHIATRIC: Negative. PHYSICAL EXAMINATION: GENERAL: Shows a pleasant female, lying comfortably in bed. VITAL SIGNS: Stable. SKIN: Anicteric. HEENT: Shows no scleral icterus. NECK: Without lymphadenopathy or thyromegaly. LUNGS: Clear. HEART: Shows regular rate and rhythm. S1, S2. No murmur. ABDOMEN: Soft without focal masses or tenderness. Bowel sounds are present. No organomegaly is noted. EXTREMITIES: Without edema. LABORATORY DATA: Reviewed. IMPRESSION: Esophageal foreign body. PLAN: Upper endoscopy. Risks and benefits of the procedure have been discussed with the patient who understands and agrees to proceed. MD STEPHANIE Ruelas/EROS / [phone]
--- NOTE | 2024-04-18 23:24 | OP_ITS ---
DATE OF SERVICE: 04/18/2024 SURGEON: Armani Muniz MD INDICATIONS: Foreign body of the esophagus. PREOPERATIVE DIAGNOSIS: POSTOPERATIVE DIAGNOSIS: PROCEDURE PERFORMED: ESTIMATED BLOOD LOSS: COMPLICATIONS: ANESTHESIA: ASSISTANTS: SPECIMENS: PROCEDURE: Upper endoscopy with removal of foreign body. MEDICATIONS: Monitored anesthesia care. DESCRIPTION OF PROCEDURE: A history and physical performed. The risks and benefits of the procedure were explained to the patient. Informed consent was obtained. The patient was placed in the left lateral decubitus position. The Olympus video gastroscope was introduced into the esophagus, stomach, and duodenum. Examination was performed. The scope was removed. She tolerated the procedure well and was taken to Recovery in stable condition. FINDINGS: Esophagus: There was a large esophageal foreign body consistent with a piece of impacted meat. This was gently pushed through into the stomach. There was a slight nonobstructive Schatzki ring at the EG junction and some minimal esophagitis at the site of the impaction. No ulcer was identified and no mass was seen. Stomach, the stomach was normal. Duodenum, the bulb and 2nd portion were normal. IMPRESSION: Foreign body, esophagus. RECOMMENDATION: 1. Follow up as needed. 2. Continue present therapy for gastroesophageal reflux disease. MD STEPHANIE Ruelas/EROS / [phone]
--- NOTE | 2024-04-19 10:24 | HO.POSTANES ---
Post Anesthesia Evaluation Post Anesthesia Evaluation Date of Service: 04/19/24 Anesthesia: Monitored Mental Status: Awake Pain Control: Satisfactory Nausea/Vomiting: None Hydration: Adequate Anesthesia-Related Issues: No Anes. Related Issues
== END 2024-04-18 15:29 | disposition home or self-care (01) ==
LOC: HO.ED 15:30 → HO.SSS 15:41
PROVIDERS: Internal Medicine Gastroenterology; Physician Assistant Medical; Emergency Provider Emergency Medicine; PCP Internal Medicine; Visit Provider Physician Assistant
PROC: 0DJ08ZZ Inspection of Upper Intestinal Tract, Via Natural or Artificial Opening Endoscopic (ICD-10-PCS; CPT 43235; principal; 2024-04-18 16:30)
DX: T18.128A Food in esophagus causing other injury, initial encounter (principal); W44.F3XA Food entering into or through a natural orifice, initial encounter; K22.2 Esophageal obstruction; K20.90 Esophagitis, unspecified without bleeding; K21.9 Gastro-esophageal reflux disease without esophagitis; Z03.818 Encounter for observation for suspected exposure to other biological agents ruled out; Y93.89 Activity, other specified; Y92.511 Restaurant or cafe as the place of occurrence of the external cause; Y99.9 Unspecified external cause status
CPT/HCPCS: 43235; 0241U; 36415; 80053; 83735; 85025; 85610; 85730; 96374; 99284; 99285; J2003; J2405; J2704; J3010

== ENCOUNTER 2024-05-26 11:46 | Outpatient (AMB) | payer OTHER, SELFPAY ==
--- NOTE | 2024-05-26 11:54 | MHC.OFFWIV ---
Intake Vital Signs 05/26/24 11:55 Weight 155 lb BP 108/70 Blood Pressure Location Rt brachial Position Sitting Pulse 128 H Pulse Source Auscultation Temp 99.8 F Temp Source Oral Intake Visit Reasons: EP Fever 3 days, fatigue, bump on lower back Intake Note: Patient here for fever, fatigue and ulcer on buttocks that has hardened. Patient Tobacco Use Status: Never used Tobacco Allergies amlodipine Allergy (Verified 05/26/24 11:57) Swelling azithromycin Allergy (Verified 05/26/24 11:57) Rash rifabutin Allergy (Verified 05/26/24 11:57) Rash Do you need a note to return to daycare/school/sports/work: No HPI HPI Comments History of Present Illness Details Pt is a 44yo female c/o fevers and fatigue x 3 days. She thinks it is related to bed sores she has on her buttocks since March. She had surgery in November 2023 for spinal fusion and she cannot lay on her side or her arms get numb so she believes she developed these ?bedsores ?from lying in bed so much on her back. Tmax 102.6F 2 days ago. The sores are now hardened and painful. Denies cough, congestion, urinary symptoms or signs of any other infectious process. Cannot get O2 sat as pt has false nails, manual HR 128 PFSH Medical History (Updated 05/26/24 @ 12:26 by Susanna Woods PA-C) Back pain Numbness Elevated cholesterol Urinary incontinence Rosacea Osteoarthritis Lumbar radiculopathy Anemia Fibromyalgia EtOH dependence Cervical dysplasia Arthralgia of hip, right Depression HIV (human immunodeficiency virus infection) HTN (hypertension) Surgical History (Updated 12/08/23 @ 13:40 by RAYSA Molina) Hx of left knee surgery History of tubal ligation Hx of cone biopsy of cervix History of esophagogastroduodenoscopy (EGD) Social History Household Members: Children Housing: Apartment Are you a primary director of managed care to a significant other at home: No Do you presently have visiting nurse or other home services: No Alcohol intake: current Alcohol intake frequency: holidays/special occasions only Patient Tobacco Use Status: Never used Tobacco Substance Use Type: Marijuana service: No Current occupational status: employed 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 Review of Systems Const All systems reviewed & are unremarkable except as noted in HPI and below Physical Exam Vital Signs: Last Vital Signs Temp 99.8 F 05/26/24 11:55 BP 108/70 05/26/24 11:55 Const General: cooperative, healthy appearing, comfortable, no acute distress and well developed Orientation/consciousness: patient oriented x3 Limitations: no limitations HEENT Head: Yes normal to inspection Ears: hearing grossly normal bilaterally General nose exam: Normal external nose present Face and sinus: Yes normal facial exam Eyes General: appearance normal, both eyes and all related structures Neck Neck: Yes normal visual inspection and Yes full ROM Resp Effort & Inspection: normal respiratory effort and able to speak in complete sentences Cardio Rate: tachycardic (128 on auscultation) Rhythm: regular rhythm Heart sounds: normal S1 and S2 Skin Other: 3cm area of induration, erythema with visible abscess gluteal cleft Neuro General: patient oriented x3 Extrem General: Yes normal to inspection Assessment & Plan Assessment & Plan (1) Pilonidal cyst with abscess: Code(s): L05.01 - Pilonidal cyst with abscess Plan: Patient has had recent fevers, tachycardic @128BPM, concerning for sepsis or bacteremia. Recommended she go to the emergency department for labs and further workup. Called [facility] ED with expect. Coding Level of Care Code New Pt Level 5 (75371) Diagnoses Pilonidal cyst with abscess L05.01
[2024-05-26 11:55] VITALS: BP 108/70; PULSE 128; TEMP 37.7
== END 2024-05-26 13:21 | disposition home or self-care (01) ==
PROVIDERS: PCP Internal Medicine; Visit Provider Physician Assistant
DX: L05.01 Pilonidal cyst with abscess (principal)

== ENCOUNTER 2024-05-26 12:38 | Inpatient (IN) | payer OTHER, SELFPAY ==
--- NOTE | ~2024-05-26 | CT_ITS ---
CLINICAL HISTORY: ? pilonidal abscess CT pelvis with contrast Comparison: 06/06/2023 Findings: There is severe edema of the perianal soft tissues extending into the subcutaneous tissues of the bilateral medial buttocks immediately adjacent to the gluteal crease, right more pronounced than left. Masslike soft tissue infiltration of the right medial buttock soft tissues. There may be small pockets of fluid contained within the area of inflammation, but there is no current evidence of walled-off drainable abscess. There is no soft tissue gas collection. There is no current evidence of involvement of the perineum. Mild infiltration of presacral soft tissues. Prominence of left periuterine vasculature. Pelvic contents otherwise unremarkable. Prior surgical fusion at L5-S1 with an appropriate postoperative appearance. No acute fracture. No dislocation. There is severe osteoarthritis of the bilateral hips, [id number]. There are large bilateral hip effusions, right larger than left. Impression: 1. Severe inflammatory process involving the perianal soft tissues and extending into the bilateral medial buttocks. There may be small pockets of associated fluid but there is no current evidence of walled-off, drainable abscess. This document has been electronically signed by: Latrice Romero MD on 05/26/2024 17:51:26
[2024-05-26 12:42] VITALS: BP 144/94; PULSE 108; RESP 18; TEMP 37.4; O2SAT 98; BMI 24.9
--- NOTE | 2024-05-26 12:43 | ED.FEVER ---
HPI - Fever General Chief Complaint: Skin/Abscess/Foreign Body Stated Complaint: Cyst Fever Time Seen by Provider: 05/26/24 14:31 Source: patient, RN notes reviewed and old records reviewed Mode of arrival: ambulatory Limitations: no limitations History of Present Illness ED Provider: Jarod LEAHY Narrative: Patient is a 44-year-old female with history of pilonidal cyst, fibromyalgia, OA presenting to the emergency department with complaint fever and chills since Friday. Reports T-max of 102? at home. Has been taking Tylenol with improvement in fevers, however fevers return when Tylenol wears off. Went to urgent care prior to arrival and was referred to the emergency department. Reports history of pilonidal abscesses in the past. Denies any spontaneous drainage. Reports constipation over the past week but is able to pass flatus. Denies nausea or vomiting. Complains of severe pain in area of fransico cleft. MD elicited complaint: fever Onset (ago): day(s) Measured temperature: 102 F Associated symptoms: chills Treatments prior to arrival fever: acetaminophen and ibuprofen Related Data Home Medications ?Medication ?Instructions ?Recorded ?Confirmed darunavir 800 mg tablet (Prezista) 800 mg PO DAILY 03/31/23 11/18/23 cholecalciferol (vitamin D3) 25 25 mcg PO DAILY 11/05/23 11/18/23 mcg (1,000 unit) tablet (Vitamin D3) docusate sodium 100 mg capsule 100 mg PO BID PRN Constipation 11/05/23 11/18/23 (Colace) elviteg 150 mg-cob 150 mg-emtricit 1 tab PO DAILY 11/05/23 11/18/23 200 mg-tenofo alafenam 10 mg tablet (Genvoya) ferrous sulfate 325 mg (65 mg 325 mg PO DAILY 11/05/23 11/18/23 iron) tablet hydroxyzine pamoate 25 mg capsule 25 mg PO QID PRN anxiety 11/05/23 11/18/23 olmesartan 40 1 tab PO DAILY 11/05/23 11/18/23 mg-hydrochlorothiazide 25 mg tablet pantoprazole 40 mg tablet,delayed 40 mg PO BID PRN Heart Burn 11/05/23 11/18/23 release polyethylene glycol 3350 17 gram 17 g PO DAILY PRN Constipation 11/05/23 11/18/23 oral powder packet therapeutic multivitamin 1 tab PO DAILY 11/05/23 11/18/23 acetaminophen 500 mg tablet 500 mg PO DAILY PRN Arthritis 11/18/23 11/18/23 buprenorphine 2 mg-naloxone 0.5 mg 1 film sublingual TID 11/18/23 11/18/23 sublingual film (Suboxone) gabapentin 100 mg capsule 400 mg PO BEDTIME 11/18/23 11/18/23 naloxone 4 mg/actuation nasal spray 4 mg intranasal Q3M PRN overdose 11/18/23 11/18/23 hydrochlorothiazide 12.5 mg tablet 12.5 mg PO DAILY 05/26/24 Previous Rx's ?Medication ?Instructions ?Recorded cane #1 ea 06/28/22 acetaminophen 500 mg tablet 1,000 mg (2 x 500 mg) PO Q6H PRN 11/19/23 moderate pain (scale score 5-6) #42 tabs gabapentin 300 mg capsule 300 mg PO TID #30 caps 11/19/23 methocarbamol 750 mg tablet 750 mg PO TID #30 tabs 11/19/23 hydromorphone 4 mg tablet See Rx Instructions PO .COMPLEX 11/21/23 #20 tabs walker #1 ea 04/28/24 Allergies Allergy/AdvReac Type Severity Reaction Status Date / Time amlodipine Allergy Swelling Verified 05/26/24 12:45 azithromycin Allergy Rash Verified 05/26/24 12:45 rifabutin Allergy Rash Verified 05/26/24 12:45 Review of Systems Review of Systems: As per HPI. Yes all other systems are reviewed and are negative Constitutional: Constitutional: Reports as per HPI PMFSH Past Medical History Medical History (Updated 05/26/24 @ 18:29 by Abi Olivera NP) Back pain Numbness Elevated cholesterol Urinary incontinence Rosacea Osteoarthritis Lumbar radiculopathy Anemia Fibromyalgia EtOH dependence Cervical dysplasia Arthralgia of hip, right Depression HIV (human immunodeficiency virus infection) HTN (hypertension) Surgical History (Updated 12/08/23 @ 13:40 by RAYSA Molina) Hx of left knee surgery History of tubal ligation Hx of cone biopsy of cervix History of esophagogastroduodenoscopy (EGD) Social History Social History Household Members: Children Housing: Apartment Are you a primary landcare officer to a significant other at home: No Do you presently have visiting nurse or other home services: No Alcohol intake: current Alcohol intake frequency: holidays/special occasions only Patient Tobacco Use Status: Never used Tobacco Smoked in Last 30 Days: No Use of substances other than those prescribed or required for medical reasons: No Substance Use Type: Marijuana Advance Directives: No Advance Directives Information Provided: Yes Do you have a plan to hurt others: No Plan service: No Current occupational status: employed 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 Blood pressure elevated. Heart rate slightly tachycardic. Respiratory rate normal. Temperature normal. Oxygen saturation normal. Const: General: cooperative, healthy appearing and no acute distress Orientation/consciousness: oriented to person, oriented to place, oriented to time and patient oriented x3 Limitations: no limitations HEENT: Head: Yes normocephalic and Yes atraumatic Ears: external ears normal General nose exam: Normal external nose present Face and sinus: Yes face symmetric Mouth: oropharynx normal and moist mucous membranes Throat: Yes uvula midline Eyes: Pupils: Equal, round and reactive pupils present Neck: Neck: Yes normal visual inspection and Yes supple Resp: Effort & Inspection: normal respiratory effort and able to speak in complete sentences Auscultation: clear to auscultation bilaterally Cardio: Rate: regular rate Rhythm: regular rhythm Heart sounds: S1 normal heart sound present and S2 normal heart sound present GI: Palpation (GI): Soft to palpation and nontender Auscultation: normoactive bowel sounds : General: Yes no CVA tenderness Back/Spine/Pelvis: Back: no CVA tenderness Back/spine/pelvis image: 1. erythema, warmth, induration 2. small sinus opening, no active drainage Skin: General skin exam: elasticity normal and turgor normal Neuro: General: oriented to person, oriented to place, oriented to time, patient oriented x3, moves all extremities, no focal motor deficits and CN's II-XI intact bilaterally Cranial nerves: Yes Equal, round and reactive pupils present Cognition (Neuro): normal cognition Extrem: General: Yes full ROM, Yes no pedal edema and Yes no calf tenderness Psych: Mental Status: mental status grossly normal Affect: normal affect Thought process: Normal thought process present Course Course Course Narrative: This is a Rapid Medical Exam performed in triage by Shayy Cowart PA-C. Full HPI, ROS and PE to be performed by primary ED provider. 44yo female with a past medical history pilonidal cyst, fibromyalgia, OA presenting to the ED c/o fever (Tmax 102) & chills since Friday w/pilonidial cyst since March sent to ED from . Took Tylenol around 1AM. denies drainage from area. urinating okay, has not had BM (in unknown time per patient - maybe 1 week). Is passing flatus. denies abd pain PE: area not evaluated in triage Plan: labs, UA, blood cx Medications Administered Generic Name Dose Route Start Last Admin Trade Name Freq PRN Reason Stop Dose Admin Piperacillin Sod/Tazobactam 50 mls @ 100 mls/hr 05/26/24 18:09 05/26/24 18:22 Sod 3.375 gm/ Sodium Chloride IV 05/26/24 18:38 100 mls/hr ONCE ONE Administration Discontinued Medications Generic Name Dose Route Start Last Admin Trade Name Freq PRN Reason Stop Dose Admin Acetaminophen 975 mg 05/26/24 16:39 05/26/24 16:44 Acetaminophen 325 Mg Tablet PO 05/26/24 16:40 975 mg ONCE ONE Administration Iohexol 100 ml 05/26/24 17:17 05/26/24 17:17 Iohexol 350 Mg/Ml 100 Ml Infus..Btl IV 05/26/24 17:18 85 ml ONCE ONE Administration Morphine Sulfate 4 mg 05/26/24 16:21 05/26/24 16:35 Morphine Sulfate 4 Mg/Ml Cartridge IVPUSH 05/26/24 16:22 4 mg ONCE ONE Administration Protocol Medical Decision Making Medical Decision Making MDM Narrative: Patient is a 44-year-old female with history of pilonidal cyst, fibromyalgia, OA presenting to the emergency department with complaint fever and chills since Friday. On exam patient is awake, A+Ox3, slightly tachycardic, BP elevated, VS otherwise WNL, afebrile, normal neurological exam without focal deficits, physical exam findings as above. Given reported symptoms and physical exam findings, initial differential includes but is not limited to pilonidal abscess, cellulitis, anorectal fistula. Labs notable for leukocytosis with left shift, elevation of ESR/CRP. CT notable for severe inflammatory process involving the perianal soft tissues extending into bilateral medial buttocks. My interpretation is in agreement with the radiologist's interpretation. Feel patient requires admission for IV antibiotics as she is febrile and extend of infection is significant. Patient met sepsis criteria at 16:34. Lactic ordered. Case discussed with Dr. Childs who will see patient in the morning. Admission to medicine accepted by Dr. Caruso. Differential Diagnosis Differential Diagnoses: The differential diagnosis associated with the presentation includes as per [facility] Admission/Observation Consideration of admission/observation: Escalation of care including admission/observation considered Consult Healthcare Provider Management of the patient was discussed with: Hospitalist and Dormitory Counselor (Dr. Childs) Lab Data [facility] Lab Attestation statement: I reviewed the patient's lab results. As per [facility] 05/26/24 13:20 05/26/24 13:20 Labs: Lab Results 05/26/24 Range/Units 13:20 WBC 14.1 H (4.8-10.8) X10*3/uL RBC 4.45 (4.20-5.50) X10*6/uL Hgb 12.3 (12.0-16.0) g/dl Hct 37.3 (37.0-47.0) % MCV 83.8 (80.0-98.0) fL MCH 27.6 (27.0-33.0) pg MCHC 33.0 (31.0-35.0) g/dl RDW 13.8 (11.0-16.0) % Plt Count 266 (160-400) X10*3/uL MPV 9.1 L (9.4-12.3) fL Immature Gran % (Auto) 1.3 H (0.0-0.4) % Neut % (Auto) 87.8 H (45-73) % Lymph % (Auto) 5.0 L (20-40) % [place] % (Auto) 5.6 (2-11) % Eos % (Auto) 0.0 (0-4) % Baso % (Auto) 0.3 (0-2) % Lymph # (Auto) 0.7 L (1.2-4.9) X10*3/uL [place] # (Auto) 0.8 (0.1-1.2) X10*3/uL Eos # (Auto) 0.0 (0.0-0.4) X10*3/uL Baso # (Auto) 0.0 (0.0-0.2) X10*3/uL Abs Immat Gran (auto) 0.19 H (0.00-0.03) X10*3/uL Absolute Neuts (auto) 12.4 H (2.0-8.3) x10*3/uL Absolute Nucleated RBC 0.000 (0.0-0.012) X10*3/uL Nucleated RBC % (auto) 0.0 (0.0-0.2) /100WBC ESR 72 H (0-20) MM/HR Sodium 134 L (135-145) mmol/L Potassium 3.5 (3.3-5.1) mmol/L Chloride 93 L (96-108) mmol/L Carbon Dioxide 30 H (22-29) mmol/L Anion Gap 15 (12-20) BUN 13 (9-16) mg/dL Creatinine 0.80 (0.5-1.4) mg/dL Estim Creat Clear Calc 82.2 Estimated GFR > 60 Random Glucose 135 H (60-115) mg/dL Calcium 9.4 (8.4-10.2) mg/dL Total Bilirubin 0.8 (0.0-1.0) mg/dL Direct Bilirubin 0.4 (0.0-0.5) mg/dL AST 21 (5-31) U/L ALT 16 (0-31) U/L Alkaline Phosphatase 146 H (39-117) U/L C-Reactive Protein 29.32 H (< or = 0.50) mg/dL Total Protein 8.0 (6.5-8.0) g/dL Albumin 3.9 (3.5-5.0) g/dL Independent Interpretation I performed an independent interpretation of an: CT Scan Interpretation: CT pelvis shows severe inflammatory process involving perianal soft tissues extending into bilateral medial buttocks. Radiology Impression Discussion of test interpretation with radiology: I have reviewed the radiologist's reading. Radiologist Impression: Impression: 1. Severe inflammatory process involving the perianal soft tissues and extending into the bilateral medial buttocks. There may be small pockets of associated fluid but there is no current evidence of walled-off, drainable abscess. External Record Review External record reviewed: Inpatient record, Office record and Outpatient record Prescription Management I considered prescription management with: Pain Medication and Antibiotic Critical Care Time Critical Care Time Critical Care Time: Yes Total Critical Care Time: 40 Attestation: I have personally provided critical care time exclusive of time spent on separately billable procedures. Time includes review of lab data, radiology results, discussion with consultants, and monitoring for potential decompensation. Intervention performed as documented. Discharge Plan Discharge Print Language: [place]
[2024-05-26 13:27] LABS: MANUAL DIFF FLAG NO
[2024-05-26 13:28] LABS: Basophils Percent Auto 0.3 % (0-2); Hematocrit 37.3 % (37.0-47.0); Hemoglobin 12.3 g/dl (12.0-16.0); Imm Gran Abs Auto 0.19 X10*3/uL (0.00-0.03); Imm Gran Pct Auto 1.3 % (0.0-0.4); Lymphocytes Absolute Auto 0.7 X10*3/uL (1.2-4.9); Mean Corpuscular Hemoglobin 27.6 pg (27.0-33.0); Mean Corpuscular Volume 83.8 fL (80.0-98.0); Mean Platelet Volume 9.1 fL (9.4-12.3); Monocytes Absolute Auto 0.8 X10*3/uL (0.1-1.2); Monocytes Percent Auto 5.6 % (2-11); Neutrophils Absolute Auto 12.4 x10*3/uL (2.0-8.3); Neutrophils Percent Auto 87.8 % (45-73); Platelet Count 266 X10*3/uL (160-400); Red Blood Count 4.45 X10*6/uL (4.20-5.50); Red Cell Distribution Width 13.8 % (11.0-16.0); White Blood Count 14.1 X10*3/uL (4.8-10.8)
[2024-05-26 13:46] LABS: Alanine Aminotransferase 16 U/L (0-31); Albumin Level 3.9 g/dL (3.5-5.0); Alkaline Phosphatase 146 U/L (39-117); Anion Gap 15 (12-20); Aspartate Amino Transferase 21 U/L (5-31); Bilirubin Direct 0.4 mg/dL (0.0-0.5); Bilirubin Total 0.8 mg/dL (0.0-1.0); Blood Urea Nitrogen 13 mg/dL (9-16); Calcium 9.4 mg/dL (8.4-10.2); Carbon Dioxide 30 mmol/L (22-29); Chloride 93 mmol/L (96-108); Creatinine Clr Calc Pharmacy 82.2; Estimated Glomerular Filt Rate > 60; Glucose Random 135 mg/dL (60-115); Potassium 3.5 mmol/L (3.3-5.1); Sodium 134 mmol/L (135-145)
[2024-05-26 15:30] VITALS: TEMP 38.8
[2024-05-26 15:56] LABS: C Reactive Protein 29.32 mg/dL (< or = 0.50)
[2024-05-26 16:27] LABS: Erythrocyte Sedimentation Rate 72 MM/HR (0-20)
[2024-05-26 16:34] VITALS: BP 112/60; PULSE 95; RESP 20; TEMP 37.8; O2SAT 99
[2024-05-26] MEDS: Morphine Sulfate 4 MG/ML CARTRIDGE IVPUSH ×2 (16:35→21:09)
[2024-05-26] MEDS: Acetaminophen 325 MG TABLET 975 MG PO (16:44)
[2024-05-26] MEDS: iohexoL 350 MG/ML 100 ML INFUS..BTL IV (17:17)
[2024-05-26 18:10] VITALS: BP 101/60; PULSE 90; RESP 20; TEMP 36.9; O2SAT 97
[2024-05-26] MEDS: Piperacillin Sodium/Tazobactam 3.375 GM in 0.9 % Sodium Chloride 50 ML IV (18:22)
--- NOTE | 2024-05-26 18:37 | PM.IMHP ---
History of Present Illness Date of Service: 05/26/24 Attending physician on admission: Filiberto Caruso Chief Complaint: pain and fevers 44y/o F hx of hiv and htn, fibromyalgia fibromyalgia, history of pilonidal abscess-came with complaint of fever and pain to [facility], thought she had a pilonidal abscess. She had significant induration on exam, low grade fevers , has leukocytosis with a left shift, elevated ESR/CRP, CT which shows severe edema/inflammatory process involving the perianal soft tissues and extends to bilateral medial buttocks. CT states may be small pockets of associated fluid but no evidence of walled off, drainable abscess. ED discussed the case with Dr. Childs who says he will see her in the morning but she needs admission for IV abx. Has significant pain in the pilonidal area and medial buttocks, has mild leukocytosis of 14.1, in the hospital did not had significant fevers, tachycardia likely related to the pain. ED had drawn the lactic acid and blood cultures sent,also on ivf and given zosyn -requested admssion for cellulitis vs pilonidal abcess ? Review of Systems Review of Systems: as above. Yes all other systems are reviewed and are negative [facility] Medical History Back pain Numbness Elevated cholesterol Urinary incontinence Rosacea Osteoarthritis Lumbar radiculopathy Anemia Fibromyalgia EtOH dependence Cervical dysplasia Arthralgia of hip, right Depression HIV (human immunodeficiency virus infection) HTN (hypertension) Surgical History Hx of left knee surgery History of tubal ligation Hx of cone biopsy of cervix History of esophagogastroduodenoscopy (EGD) Social History Household Members: Children Housing: Apartment Are you a primary neurocritical care physician to a significant other at home: No Do you presently have visiting nurse or other home services: No Alcohol intake: current Alcohol intake frequency: holidays/special occasions only Patient Tobacco Use Status: Never used Tobacco Smoked in Last 30 Days: No Use of substances other than those prescribed or required for medical reasons: No Substance Use Type: Marijuana Advance Directives: No Advance Directives Information Provided: Yes Do you have a plan to hurt others: No Plan service: No Current occupational status: employed 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 Allergy/AdvReac Type Severity Reaction Status Date / Time amlodipine Allergy Swelling Verified 05/26/24 12:45 azithromycin Allergy Rash Verified 05/26/24 12:45 rifabutin Allergy Rash Verified 05/26/24 12:45 Active Medications: Current Medications Acetaminophen (Acetaminophen 325 Mg Tablet) 975 mg PO Q6H DOMO Calcium Carbonate (Calcium Carbonate 750 Mg Tab.Chew) 750 mg PO Q4H PRN PRN Reason: Heartburn Piperacillin Sod/Tazobactam (Sod 3.375 gm/ Sodium Chloride) 50 mls @ 100 mls/hr IV ONCE ONE Stop: 05/26/24 18:38 Last Admin: 05/26/24 18:22 Dose: 100 mls/hr Lactated Ringer's (Lr) 2,100 mls @ 2,100 mls/hr 30 ml/kg infuse over 1 hr (2100 ml) IV .Q1H ONE Stop: 05/26/24 19:27 Magnesium Hydroxide (Milk Of Magnesia 30 Ml Oral.Susp) 30 ml PO DAILY PRN PRN Reason: Constipation Melatonin (Melatonin 3 Mg Tablet) 6 mg PO BEDTIME PRN PRN Reason: Insomnia Sodium Chloride (0.9 % Sodium Chloride Flush 3 Ml Syringe) 3 ml IVFLUSH QSHIFT [facility] Home Medications ?Medication ?Instructions ?Recorded ?Confirmed ?Last Taken ?Type darunavir 800 mg tablet (Prezista) 800 mg PO DAILY 03/31/23 11/18/23 11/17/23 History cholecalciferol (vitamin D3) 25 25 mcg PO DAILY 11/05/23 11/18/23 11/17/23 History mcg (1,000 unit) tablet (Vitamin D3) docusate sodium 100 mg capsule 100 mg PO BID PRN Constipation 11/05/23 11/18/23 Unknown History (Colace) elviteg 150 mg-cob 150 mg-emtricit 1 tab PO DAILY 11/05/23 11/18/23 11/17/23 History 200 mg-tenofo alafenam 10 mg tablet (Genvoya) ferrous sulfate 325 mg (65 mg 325 mg PO DAILY 11/05/23 11/18/23 11/17/23 History iron) tablet hydroxyzine pamoate 25 mg capsule 25 mg PO QID PRN anxiety 11/05/23 11/18/23 Unknown History olmesartan 40 1 tab PO DAILY 11/05/23 11/18/23 11/17/23 History mg-hydrochlorothiazide 25 mg tablet pantoprazole 40 mg tablet,delayed 40 mg PO BID PRN Heart Burn 11/05/23 11/18/23 Unknown History release polyethylene glycol 3350 17 gram 17 g PO DAILY PRN Constipation 11/05/23 11/18/23 Unknown History oral powder packet therapeutic multivitamin 1 tab PO DAILY 11/05/23 11/18/23 11/17/23 History acetaminophen 500 mg tablet 500 mg PO DAILY PRN Arthritis 11/18/23 11/18/23 Unknown History buprenorphine 2 mg-naloxone 0.5 mg 1 film sublingual TID 11/18/23 11/18/23 11/17/23 History sublingual film (Suboxone) gabapentin 100 mg capsule 400 mg PO BEDTIME 11/18/23 11/18/23 Unknown History naloxone 4 mg/actuation nasal spray 4 mg intranasal Q3M PRN overdose 11/18/23 11/18/23 Unknown History acetaminophen 650 mg 650 mg PO TID 05/26/24 05/26/24 Unknown History tablet,extended release buprenorphine 8 mg-naloxone 2 mg film sublingual BID 05/26/24 Unknown History sublingual film duloxetine 60 mg capsule,delayed 60 mg PO DAILY 05/26/24 Unknown History release gabapentin 800 mg tablet 800 mg PO TID 05/26/24 Unknown History hydrochlorothiazide 12.5 mg tablet 12.5 mg PO DAILY 05/26/24 Unknown History Physical Exam Vital Signs and Narrative: Vital Signs: Last Vital Signs Temp 98.4 F 05/26/24 18:10 Pulse 90 05/26/24 18:10 Resp 20 05/26/24 18:10 BP 101/60 05/26/24 18:10 Pulse Ox 97 05/26/24 18:10 O2 Del Method Room Air 05/26/24 18:10 BMI result Body Mass Index 24.9 Appearance: Alert.? Oriented X3.? Eyes: Pupils equal, round and reactive to light.? Sclera nonicteric.? ENT: Pharynx normal.? Moist mucous membranes. cvs: rrr, [id number]. res: clear to auscultation ,no rhonchii or wheezing abd: no rebound or guarding ,nt, bs present. ext pulses present , no cyanosis skin-has erythema, warmth, induration, small sinus opening no active drainage. neuro: axo3 , nonfocal. Results Labs 05/26/24 13:20 05/26/24 13:20 Labs: Laboratory Results - last 24 hr 05/26/24 13:20 MCV 83.8 MCH 27.6 MCHC 33.0 RDW 13.8 Plt Count 266 MPV 9.1 L Immature Gran % (Auto) 1.3 H Neut % (Auto) 87.8 H Lymph % (Auto) 5.0 L [place] % (Auto) 5.6 Eos % (Auto) 0.0 Baso % (Auto) 0.3 Lymph # (Auto) 0.7 L [place] # (Auto) 0.8 Eos # (Auto) 0.0 Baso # (Auto) 0.0 Abs Immat Gran (auto) 0.19 H Absolute Neuts (auto) 12.4 H Absolute Nucleated RBC 0.000 Nucleated RBC % (auto) 0.0 ESR 72 H Anion Gap 15 Estim Creat Clear Calc 82.2 Estimated GFR > 60 Random Glucose 135 H Calcium 9.4 Total Bilirubin 0.8 Direct Bilirubin 0.4 AST 21 ALT 16 Alkaline Phosphatase 146 H C-Reactive Protein 29.32 H Total Protein 8.0 Albumin 3.9 Assessment and Plan (1) Perianal infection: Status: Acute Plan 44y/o F hx of hiv and htn, fibromyalgia, history of pilonidal abscess-came with complaint of fever and pain to [facility], thought she had a pilonidal abscess. She had significant induration on exam, low grade fevers , has leukocytosis with a left shift, elevated ESR/CRP, CT which shows severe edema/inflammatory process involving the perianal soft tissues and extends to bilateral medial buttocks. CT states may be small pockets of associated fluid but no evidence of walled off, drainable abscess. possible perianal/buttock cellulitis: No sepsis-has leukocytosis Tachycardia due to pain Lactic acid pending, blood culture also sent. Patient was started on IV Zosyn, pain management with IV Dilaudid. Also getting IV fluids. Surgery evaluation Hypertension: Hold ab/hydrochlorothiazide HIV: Continue home medications once reconciled. History of drug use:? On Suboxone, medical reconciliation is pending dvt prophylax: mech devices. Above management discussed with patient in detail length she understand and in agreement with the above plan, time spent 70 minute, patient full code. Quality Stroke Does the patient have a stroke diagnosis?: No VTE Prior VTE?: No VTE Risk Level:: Medical - moderate - high VTE Device Contraindication: N/A - Device Ordered VTE Drug Contraindication: N/A - Med Ordered
[2024-05-26] MEDS: Lactated Ringers 2,100 ML 2100 ML IV (18:41)
[2024-05-26 19:06] LABS: Lactic Acid 0.6 mmol/L (0.5-2.0)
--- NOTE | 2024-05-26 19:18 | PHA.MEDREC ---
Addendum entered by Armand Shelley RPh 05/26/24 20:02: Med rec was reviewed by Thien. Original Note: Pharmacy Consult ? Medication Reconciliation Pharmacy has completed the medication reconciliation. Spoke with patient and she was able to confirm her medications. She states she took the Genvoya [phone] and Darunavir 800mg tab this morning @0500 and everything else was taken yesterday she stated.
--- NOTE | 2024-05-26 19:35 | PC.NURSE ---
report given to Kathi RN - pt to be moved to ED Overflow #1 - belongings list complete. transported by [facility] non morse intercept technician
--- NOTE | 2024-05-26 19:49 | PC.NURSE ---
pt arrived to OF 1 and now has a bed 380. Britany will give report.
[2024-05-26 20:00] VITALS: BP 109/63; PULSE 82; RESP 18; TEMP 36.9; O2SAT 100
[2024-05-26 20:56] VITALS: BMI 24.9
[2024-05-26] MEDS: Gabapentin 400 MG CAPSULE 800 MG PO (22:12)
[2024-05-26] MEDS: 0.9 % Sodium Chloride Flush 3 ML SYRINGE IVFLUSH (22:13)
[2024-05-27] VITALS (7 sets, daily range): BP systolic 90–141; BP diastolic 54–69; PULSE 80–99; RESP 18; TEMP 36.4–39.6; O2SAT 97–100
[2024-05-27] MEDS: Piperacillin Sodium/Tazobactam 3.375 GM in 0.9 % Sodium Chloride 50 ML IV ×4 (01:39→18:20)
[2024-05-27] MEDS: Acetaminophen 325 MG TABLET 975 MG PO ×4 (01:41→18:19)
[2024-05-27] MEDS: Morphine Sulfate 4 MG/ML CARTRIDGE IVPUSH ×4 (02:05→23:58)
[2024-05-27] MEDS: Gabapentin 400 MG CAPSULE 800 MG PO ×3 (07:45→20:36)
[2024-05-27] MEDS: Elviteg/Cobi/Emtric/Tenofo Ala 150/150/200/10 TABLET 1 TAB PO (07:46)
[2024-05-27] MEDS: hydroCHLOROthiazide 12.5 MG TABLET PO (07:46)
[2024-05-27] MEDS: Ferrous Sulfate 324 MG TABLET.DR PO (07:46)
[2024-05-27] MEDS: Darunavir Ethanolate 800 MG TABLET PO (07:46)
--- NOTE | 2024-05-27 07:46 | W.PM.OPN ---
Operative Note Operative Note Date of Service: 05/27/24 Narrative: Preoperative diagnosis: pilonidal cyst abscess Postoperative diagnosis: same Procedure: I and D of pilonidal cyst abscess Surgeon: Shine Childs MD Gauge And Instrument Inspector: none Anesthesia: lidocaine 1% with epinephrine Indications for procedure: painful pilonidal cyst abscess at the intergluteal cleft Operative findings: abscess large Specimen: wound culture Estimated blood loss: less than 2 mL Complications: none Procedure details: Procedure was performed at the bedside. The patient was placed in a left lateral decubitus position. The site of procedure was confirmed by the patient in the intergluteal cleft. After assuring informed consent, the skin was prepped with Betadine and draped in a sterile fashion. Local anesthesia was then infiltrated over the abscess cavity. Incision was made with an 11 blade in the abscess cavity entered. A large purulence collection was drained which extended at least 2 cm below the skin. This was then irrigated with saline solution. Wounds were then packed with quarter-inch Nu Gauze. Sterile dressings were then applied including 4 x 4 fluff gauze and ABD pad. The patient tolerated the procedure well.
--- NOTE | 2024-05-27 07:51 | PM.CNGS ---
History of Present Illness Consult details Consult date: 05/27/24 Requesting physician: Filiberto Caruso Narrative: 44-year-old female patient presenting with complaints of pain in the buttock. This has began approximately 1 week ago. She began to apply a topical antibiotic which initially improved her symptoms however over time seemed to increase. She now reports increased pain hardness at this location. She denies any discharge from the wounds. She denies a prior history of pilonidal cyst abscess. She presented to the emergency department and underwent a CT of the pelvis which revealed severe inflammatory process involving the perianal soft tissue extending into bilateral medial buttocks. There may be small pockets associated with fluid but there is no current evidence of a walled-off, drainable abscess. Surgical consultation was requested for further management of this abscess. Review of Systems Review of Systems: Yes all other systems are reviewed and are negative Constitutional: Constitutional: Denies chills, Denies fever(s), Denies headache(s), Denies poor appetite and Denies weakness ENT: Denies headache(s) Cardiovascular: Cardiovascular: Denies chest pain, Denies irregular heart rhythm, Denies palpitations and Denies dyspnea Respiratory: Respiratory: Denies cough, Denies excessive phlegm production and Denies dyspnea Gastrointestinal: Gastrointestinal: Denies abdominal pain, Denies bloating, Denies change in bowel habits, Denies constipation, Denies heartburn, Denies diarrhea, Denies nausea and Denies vomiting Genitourinary: Genitourinary: Denies urinary frequency Musculoskeletal: Musculoskeletal: Denies back pain, Denies muscle weakness and Denies numbness Integumentary/Breasts: Skin/Breast: Denies changing lesions and Denies unusual bruising Neurologic: Denies headache(s), Denies numbness, Denies paresthesias and Denies weakness Psychiatric: Psychiatric: Denies anxiety and Denies depression Endocrine: Endocrine: Denies palpitations Hematologic/Lymphatic: Hematologic/Lymphatic: Denies lymphadenopathy PMFSH Past Medical History Medical History Back pain Numbness Elevated cholesterol Urinary incontinence Rosacea Osteoarthritis Lumbar radiculopathy Anemia Fibromyalgia EtOH dependence Cervical dysplasia Arthralgia of hip, right Depression HIV (human immunodeficiency virus infection) HTN (hypertension) Surgical History Surgical History Hx of left knee surgery History of tubal ligation Hx of cone biopsy of cervix History of esophagogastroduodenoscopy (EGD) Social History Social History Household Members: Children Housing: House Are you a primary client care manager to a significant other at home: No Do you presently have visiting nurse or other home services: No Alcohol intake: current Alcohol intake frequency: holidays/special occasions only Patient Tobacco Use Status: Never used Tobacco Substance Use Type: Marijuana service: No Current occupational status: employed 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 Allergies Allergy/AdvReac Type Severity Reaction Status Date / Time amlodipine Allergy Swelling Verified 05/26/24 12:45 azithromycin Allergy Rash Verified 05/26/24 12:45 rifabutin Allergy Rash Verified 05/26/24 12:45 Active Medications: Current Medications Acetaminophen (Acetaminophen 325 Mg Tablet) 975 mg PO Q6H [facility] Last Admin: 05/27/24 06:38 Dose: 975 mg Calcium Carbonate (Calcium Carbonate 750 Mg Tab.Chew) 750 mg PO Q4H PRN PRN Reason: Heartburn Darunavir (Darunavir Ethanolate 800 Mg Tablet) 800 mg PO DAILY [facility] Last Admin: 05/27/24 07:46 Dose: 800 mg Docusate Sodium (Docusate Sodium 100 Mg Capsule) 100 mg PO BID PRN PRN Reason: Constipation Elvitegravir/Cobicis/Emtricit/Tenof (Elviteg/Anika/Emtric/Tenofo Ala 150/150/200/10 Tablet) 1 tab PO DAILY [facility] Last Admin: 05/27/24 07:46 Dose: 1 tab Ferrous Sulfate (Ferrous Sulfate 324 Mg Tablet.Dr) 324 mg PO DAILY [facility] Last Admin: 05/27/24 07:46 Dose: 324 mg Gabapentin (Gabapentin 400 Mg Capsule) 800 mg PO TID [facility] Last Admin: 05/27/24 07:45 Dose: 800 mg Hydrochlorothiazide (Hydrochlorothiazide 12.5 Mg Tablet) 12.5 mg PO DAILY [facility]; Protocol Last Admin: 05/27/24 07:46 Dose: 12.5 mg Hydroxyzine HCl (Hydroxyzine Hcl 25 Mg Tablet) 25 mg PO QID PRN PRN Reason: anxiety Piperacillin Sod/Tazobactam (Sod 3.375 gm/ Sodium Chloride) 50 mls @ 100 mls/hr IV Q6H [facility] Last Infusion: 05/27/24 07:30 Dose: Infused Magnesium Hydroxide (Milk Of Magnesia 30 Ml Oral.Susp) 30 ml PO DAILY PRN PRN Reason: Constipation Melatonin (Melatonin 3 Mg Tablet) 6 mg PO BEDTIME PRN PRN Reason: Insomnia Morphine Sulfate (Morphine Sulfate 4 Mg/Ml Cartridge) 4 mg IVPUSH Q3H PRN; Protocol PRN Reason: Pain, Severe (Pain Scale 7-10) Last Admin: 05/27/24 07:25 Dose: 4 mg Omeprazole (Omeprazole 20 Mg Capsule.Dr) 20 mg PO BID@0630,1600 PRN PRN Reason: Heart Burn Polyethylene Glycol (Polyethylene Glycol 3350 17 Gm Powd.Pack) 17 gm PO DAILY PRN PRN Reason: Constipation Sodium Chloride (0.9 % Sodium Chloride Flush 3 Ml Syringe) 3 ml IVFLUSH QSHIFT [facility] Last Admin: 05/27/24 07:49 Dose: Not Given Home Medications ?Medication ?Instructions ?Recorded ?Confirmed ?Last Taken ?Type darunavir 800 mg tablet (Prezista) 800 mg PO DAILY 03/31/23 05/26/24 05/26/24 05:00 History docusate sodium 100 mg capsule 100 mg PO BID PRN Constipation 11/05/23 05/26/24 Unknown History (Colace) elviteg 150 mg-cob 150 mg-emtricit 1 tab PO DAILY 11/05/23 05/26/24 05/26/24 05:00 History 200 mg-tenofo alafenam 10 mg tablet (Genvoya) ferrous sulfate 325 mg (65 mg 325 mg PO DAILY 11/05/23 05/26/24 05/25/24 History iron) tablet hydroxyzine pamoate 25 mg capsule 25 mg PO QID PRN anxiety 11/05/23 05/26/24 Unknown History pantoprazole 40 mg tablet,delayed 40 mg PO BID@0630,1600 PRN Heart 11/05/23 05/26/24 Unknown History release Burn polyethylene glycol 3350 17 gram 17 g PO DAILY PRN Constipation 11/05/23 05/26/24 Unknown History oral powder packet acetaminophen 650 mg 650 mg PO TID 05/26/24 05/26/24 05/25/24 History tablet,extended release buprenorphine 8 mg-naloxone 2 mg 1 film sublingual QID 05/26/24 05/26/24 05/25/24 History sublingual film gabapentin 800 mg tablet 800 mg PO TID 05/26/24 05/26/24 05/25/24 History hydrochlorothiazide 12.5 mg tablet 12.5 mg PO DAILY 05/26/24 05/26/24 05/25/24 History Physical Exam Vital Signs: Vital Signs: Last Vital Signs Temp 97.5 F 05/27/24 07:25 Pulse 93 05/27/24 07:25 Resp 18 05/27/24 07:25 BP 117/68 05/27/24 07:46 Pulse Ox 97 05/27/24 07:25 O2 Del Method Room Air 05/27/24 07:25 BMI result Body Mass Index 24.9 Const: General: cooperative and no acute distress Nutritional Appearance: well nourished Orientation/consciousness: patient oriented x3 Limitations: no limitations HEENT: Head: Yes normocephalic and Yes atraumatic Ears: hearing grossly normal bilaterally Resp: Effort & Inspection: normal respiratory effort, no audible wheezes, no cough and no respiratory distress Cardio: Jugular venous distension: no JVD GI: Inspection: Yes normal to inspection Back/Spine/Pelvis: Other: Palpable area of inflammation and fluctuance located in the intergluteal clamps suggestive of a pilonidal cyst. Site is exquisitely tender to palpation. No bleeding or discharge is noted. Back/spine/pelvis image: 1. Site of abscess intergluteal cleft Skin: Other: Warm, dry, no rash Neuro: General: patient oriented x3 Extrem: General: Yes no clubbing, cyanosis or edema Results Labs 05/26/24 13:20 05/26/24 13:20 Labs: Abnormal lab results 05/26/24 Range/Units 13:20 WBC 14.1 H (4.8-10.8) X10*3/uL MPV 9.1 L (9.4-12.3) fL Immature Gran % (Auto) 1.3 H (0.0-0.4) % Neut % (Auto) 87.8 H (45-73) % Lymph % (Auto) 5.0 L (20-40) % Lymph # (Auto) 0.7 L (1.2-4.9) X10*3/uL Abs Immat Gran (auto) 0.19 H (0.00-0.03) X10*3/uL Absolute Neuts (auto) 12.4 H (2.0-8.3) x10*3/uL ESR 72 H (0-20) MM/HR Sodium 134 L (135-145) mmol/L Chloride 93 L (96-108) mmol/L Carbon Dioxide 30 H (22-29) mmol/L Random Glucose 135 H (60-115) mg/dL Alkaline Phosphatase 146 H (39-117) U/L C-Reactive Protein 29.32 H (< or = 0.50) mg/dL Short CBC 05/26/24 Range/Units 13:20 WBC 14.1 H (4.8-10.8) X10*3/uL Hgb 12.3 (12.0-16.0) g/dl Hct 37.3 (37.0-47.0) % Plt Count 266 (160-400) X10*3/uL BMP 05/26/24 13:20 Sodium 134 L Potassium 3.5 Chloride 93 L Carbon Dioxide 30 H BUN 13 Creatinine 0.80 Calcium 9.4 Liver Function 05/26/24 Range/Units 13:20 Total Bilirubin 0.8 (0.0-1.0) mg/dL Direct Bilirubin 0.4 (0.0-0.5) mg/dL AST 21 (5-31) U/L ALT 16 (0-31) U/L Alkaline Phosphatase 146 H (39-117) U/L Albumin 3.9 (3.5-5.0) g/dL All other labs normal. Assessment and Plan (1) Pilonidal cyst with abscess: Status: Acute Plan 44-year-old female patient presenting with a large pilonidal cyst abscess. I recommended incision and drainage of his abscess at the bedside. I reviewed the procedure, risks, and alternatives and she consents to the procedure. The procedure was performed at the bedside and a large purulence collection was drained. She tolerated the procedure well. Procedures Date of Service Date of Service: 05/27/24
--- NOTE | 2024-05-27 14:14 | HO.PM.IMPN ---
Subjective Subjective Date of Service: 05/28/24 Interval History: pilonidal cyst abscess Review of Systems has fever 103.1 x1 time had i&D today and culture sent feels some soarness in pilonidal area Physical Exam Vital Signs: Vital Signs: Last Vital Signs Temp 103.2 F H 05/27/24 11:56 Pulse 95 05/27/24 11:56 Resp 18 05/27/24 11:56 BP 141/69 H 05/27/24 11:56 Pulse Ox 99 05/27/24 11:56 O2 Del Method Room Air 05/27/24 11:56 BMI result Body Mass Index 24.9 Appearance: Alert.? Oriented X3.? cvs: rrr, [id number]. res: clear to auscultation ,no rhonchii or wheezing abd: no rebound or guarding ,nt, bs present. ext pulses present , no cyanosis skin-has erythema, warmth, induration, small sinus opening no active drainage-s/pi&D -please se surgery note. neuro: axo3 , nonfocal. Objective Data Active Medications Acetaminophen (Acetaminophen 325 Mg Tablet) 975 mg PO Q6H [facility] Last Admin: 05/27/24 12:50 Dose: 975 mg Documented By: BASSEM Calcium Carbonate (Calcium Carbonate 750 Mg Tab.Chew) 750 mg PO Q4H PRN PRN Reason: Heartburn Darunavir (Darunavir Ethanolate 800 Mg Tablet) 800 mg PO DAILY [facility] Last Admin: 05/27/24 07:46 Dose: 800 mg Documented By: BASSEM Docusate Sodium (Docusate Sodium 100 Mg Capsule) 100 mg PO BID PRN PRN Reason: Constipation Elvitegravir/Cobicis/Emtricit/Tenof (Elviteg/Anika/Emtric/Tenofo Ala 150/150/200/10 Tablet) 1 tab PO DAILY [facility] Last Admin: 05/27/24 07:46 Dose: 1 tab Documented By: BASSEM Ferrous Sulfate (Ferrous Sulfate 324 Mg Tablet.Dr) 324 mg PO DAILY [facility] Last Admin: 05/27/24 07:46 Dose: 324 mg Documented By: BASSEM Gabapentin (Gabapentin 400 Mg Capsule) 800 mg PO TID [facility] Last Admin: 05/27/24 07:45 Dose: 800 mg Documented By: BASSEM Hydrochlorothiazide (Hydrochlorothiazide 12.5 Mg Tablet) 12.5 mg PO DAILY [facility]; Protocol Last Admin: 05/27/24 07:46 Dose: 12.5 mg Documented By: BASSEM Hydroxyzine HCl (Hydroxyzine Hcl 25 Mg Tablet) 25 mg PO QID PRN PRN Reason: anxiety Piperacillin Sod/Tazobactam (Sod 3.375 gm/ Sodium Chloride) 50 mls @ 100 mls/hr IV Q6H [facility] Last Infusion: 05/27/24 13:48 Dose: Infused Documented By: BASSEM Magnesium Hydroxide (Milk Of Magnesia 30 Ml Oral.Susp) 30 ml PO DAILY PRN PRN Reason: Constipation Melatonin (Melatonin 3 Mg Tablet) 6 mg PO BEDTIME PRN PRN Reason: Insomnia Morphine Sulfate (Morphine Sulfate 4 Mg/Ml Cartridge) 4 mg IVPUSH Q3H PRN; Protocol PRN Reason: Pain, Severe (Pain Scale 7-10) Last Admin: 05/27/24 07:25 Dose: 4 mg Documented By: BASSEM Omeprazole (Omeprazole 20 Mg Capsule.Dr) 20 mg PO BID@0630,1600 PRN PRN Reason: Heart Burn Polyethylene Glycol (Polyethylene Glycol 3350 17 Gm Powd.Pack) 17 gm PO DAILY PRN PRN Reason: Constipation Sodium Chloride (0.9 % Sodium Chloride Flush 3 Ml Syringe) 3 ml IVFLUSH QSHIFT [facility] Last Admin: 05/27/24 07:49 Dose: Not Given Documented By: BASSEM Non-Admin Reason: Previously Administered Labs 05/27/24 14:44 05/28/24 09:51 Labs: Laboratory Results - last 24 hr 05/26/24 05/26/24 13:20 18:40 ESR 72 H Lactic Acid 0.6 C-Reactive Protein 29.32 H Microbiology Microbiology Results: Microbiology 05/27/24 07:45 Gram Stain - Final Pilonidal Cyst Assessment and Plan (1) Perianal infection: Status: Acute Assessment and Plan: 44y/o F hx of hiv and htn, fibromyalgia, history of pilonidal abscess-came with complaint of fever and pain to cleft, thought she had a pilonidal abscess. She had significant induration on exam, low grade fevers , has leukocytosis with a left shift, elevated ESR/CRP, CT which shows severe edema/inflammatory process involving the perianal soft tissues and extends to bilateral medial buttocks. CT states may be small pockets of associated fluid but no evidence of walled off, drainable abscess. possible Pilonidal abcess and sepsis : meet sepsis criteria has leukocytosis, fever Tachycardia due to pain added Lactic acid and blood culture also sent. Patient was started on IV Zosyn, pain management with IV Dilaudid. Also getting IV fluids. Surgery saw patient -s/p i&D , culture from abcess area sent , conitnue iv zosyn added Id eval. Hypertension: continue ab/hydrochlorothiazide. HIV: Continue home medications once reconciled. History of drug use:added On Suboxone. dvt prophylax:mech devices. Ongoing need for hospitlisation-sepsis with Pilonidal abcess: need iv antibiotics ,cultures ,need surgery follow up. Quality Stroke Does the patient have a stroke diagnosis?: No VTE Prior VTE?: No VTE Risk Level:: Medical - moderate - high VTE Device Contraindication: N/A - Device Ordered VTE Drug Contraindication: N/A - Med Ordered
[2024-05-27 14:53] LABS: Hematocrit 34.8 % (37.0-47.0); Hemoglobin 11.8 g/dl (12.0-16.0); Mean Corpuscular HGB Conc 33.9 g/dl (31.0-35.0); Mean Corpuscular Volume 82.7 fL (80.0-98.0); Mean Platelet Volume 9.3 fL (9.4-12.3); Platelet Count 279 X10*3/uL (160-400); Red Blood Count 4.21 X10*6/uL (4.20-5.50); Red Cell Distribution Width 13.8 % (11.0-16.0); White Blood Count 12.9 X10*3/uL (4.8-10.8)
[2024-05-27 15:06] LABS: Lactic Acid 1.7 mmol/L (0.5-2.0)
--- NOTE | 2024-05-27 15:33 | MHC.CM.PN ---
Patient lives in a home w/ her 2 adult sons. Functionally independent. Denies use of services or DME. No PCP - [facility] brochure provided. Patient will call to schedule appt. No HCP. CM provided education and offered assistance. Patient declined. DP: Home self care. Patient is aware she is not eligible for VNA d/t no PCP , reports son can assist w/ dressing changes if needed. Son to transport. CM will continue to follow.
[2024-05-27] MEDS: Buprenorphine/Naloxone 8/2 mg FILM 1 FILM SUBLINGUAL ×2 (16:42→20:36)
[2024-05-27] MEDS: 0.9 % Sodium Chloride Flush 3 ML SYRINGE IVFLUSH ×2 (16:42→23:58)
[2024-05-28] VITALS (8 sets, daily range): BP systolic 93–135; BP diastolic 57–81; PULSE 73–106; RESP 16–18; TEMP 36.1–38.8; O2SAT 96–100
[2024-05-28] MEDS: Piperacillin Sodium/Tazobactam 3.375 GM in 0.9 % Sodium Chloride 50 ML IV ×4 (01:28→18:30)
[2024-05-28] MEDS: Acetaminophen 325 MG TABLET 975 MG PO ×4 (01:28→18:29)
[2024-05-28] MEDS: Ketorolac Tromethamine 30 MG/ML VIAL IVPUSH (02:06)
--- NOTE | 2024-05-28 02:07 | PC.NURSE ---
pt c/o a lot of pain at I&D site.She was medicated with morphine 4mg IV at 2358 and not yet due until 3am. notified and ordered toradol 30mg IV x1.
[2024-05-28] MEDS: Morphine Sulfate 4 MG/ML CARTRIDGE IVPUSH (06:23)
[2024-05-28] MEDS: Gabapentin 400 MG CAPSULE 800 MG PO ×3 (08:53→21:22)
[2024-05-28] MEDS: Lactated Ringers 1,000 ML 100 ML IVCONT ×2 (08:53→18:34)
[2024-05-28] MEDS: Darunavir Ethanolate 800 MG TABLET PO (08:53)
[2024-05-28] MEDS: Ferrous Sulfate 324 MG TABLET.DR PO (08:54)
[2024-05-28] MEDS: Buprenorphine/Naloxone 8/2 mg FILM 1 FILM SUBLINGUAL ×3 (08:54→21:21)
[2024-05-28] MEDS: Elviteg/Cobi/Emtric/Tenofo Ala 150/150/200/10 TABLET 1 TAB PO (08:54)
[2024-05-28] MEDS: HYDROmorphone HCl 1 MG/ML SYRINGE IVPUSH ×4 (09:22→21:22)
[2024-05-28] MEDS: vancomycin HCL 1,000 MG, vancomycin HCL 750 MG in 0.9 % Sodium Chloride 500 ML 267.5 MG IV (09:58)
[2024-05-28 10:29] LABS: Creatinine Clr Calc Pharmacy 78.3; Estimated Glomerular Filt Rate > 60
--- NOTE | 2024-05-28 10:38 | MHC.CM.PN ---
Per MD rounds patient not medically cleared for dc. CM will continue to follow.
--- NOTE | 2024-05-28 13:07 | P.PNIM_ITS ---
Subjective Subjective Date of Service: 05/28/24 Interval History: Pilonidal abcess Review of Systems still has pain/soarness in pilonidal area no fevers Physical Exam 2 Vital Signs: Vital Signs: Last Vital Signs Temp 98.1 F 05/28/24 11:38 Pulse 80 05/28/24 11:38 Resp 18 05/28/24 11:38 BP 112/66 05/28/24 11:38 Pulse Ox 100 05/28/24 11:38 O2 Del Method Room Air 05/28/24 11:38 BMI result Body Mass Index 24.9 Appearance: Alert.? Oriented X3.? cvs: rrr, [id number]. res: clear to auscultation ,no rhonchii or wheezing abd: no rebound or guarding ,nt, bs present. ext pulses present , no cyanosis skin-has soarness /pain ,please see surgerynote(05/27/24). neuro: axo3 , nonfocal. Objective Data Active Medications Acetaminophen (Acetaminophen 325 Mg Tablet) 975 mg PO Q6H [facility] Last Admin: 05/28/24 12:58 Dose: 975 mg Documented By: DANIAL Buprenorphine/Naloxone (Buprenorphine/Naloxone 8/2 Mg Film) 1 film SUBLINGUAL QID [facility] Last Admin: 05/28/24 12:58 Dose: 1 film Documented By: DANIAL Calcium Carbonate (Calcium Carbonate 750 Mg Tab.Chew) 750 mg PO Q4H PRN PRN Reason: Heartburn Darunavir (Darunavir Ethanolate 800 Mg Tablet) 800 mg PO DAILY [facility] Last Admin: 05/28/24 08:53 Dose: 800 mg Documented By: DANIAL Docusate Sodium (Docusate Sodium 100 Mg Capsule) 100 mg PO BID PRN PRN Reason: Constipation Elvitegravir/Cobicis/Emtricit/Tenof (Elviteg/Anika/Emtric/Tenofo Ala 150/150/200/10 Tablet) 1 tab PO DAILY [facility] Last Admin: 05/28/24 08:54 Dose: 1 tab Documented By: DANIAL Ferrous Sulfate (Ferrous Sulfate 324 Mg Tablet.) 324 mg PO DAILY [facility] Last Admin: 05/28/24 08:54 Dose: 324 mg Documented By: DANIAL Gabapentin (Gabapentin 400 Mg Capsule) 800 mg PO TID [facility] Last Admin: 05/28/24 08:53 Dose: 800 mg Documented By: DANIAL Hydromorphone HCl (Hydromorphone Hcl 1 Mg/Ml Syringe) 1 mg IVPUSH Q3H PRN; Protocol PRN Reason: Pain, Severe (Pain Scale 7-10) Last Admin: 05/28/24 13:04 Dose: 1 mg Documented By: DANIAL Hydromorphone HCl (Hydromorphone Hcl 2 Mg Tablet) 1 mg PO Q4H PRN PRN Reason: Pain, Moderate(Pain Scale 4-6) Hydroxyzine HCl (Hydroxyzine Hcl 25 Mg Tablet) 25 mg PO QID PRN PRN Reason: anxiety Piperacillin Sod/Tazobactam (Sod 3.375 gm/ Sodium Chloride) 50 mls @ 100 mls/hr IV Q6H [facility] Last Infusion: 05/28/24 07:16 Dose: Infused Documented By: DANIAL Lactated Ringer's (Lr) 1,000 mls @ 100 mls/hr IVCONT .Q10H [facility] Last Admin: 05/28/24 08:53 Dose: 100 mls/hr Documented By: DANIAL Magnesium Hydroxide (Milk Of Magnesia 30 Ml Oral.Susp) 30 ml PO DAILY PRN PRN Reason: Constipation Melatonin (Melatonin 3 Mg Tablet) 6 mg PO BEDTIME PRN PRN Reason: Insomnia Omeprazole (Omeprazole 20 Mg Capsule.Dr) 20 mg PO BID@0630,1600 PRN PRN Reason: Heart Burn Pharmacy Consult (Consult Rx Vancomycin Dosing) 1 each MISCELLANE DAILY PRN PRN Reason: Consult order Polyethylene Glycol (Polyethylene Glycol 3350 17 Gm Powd.Pack) 17 gm PO DAILY PRN PRN Reason: Constipation Sodium Chloride (0.9 % Sodium Chloride Flush 3 Ml Syringe) 3 ml IVFLUSH QSHIFT [facility] Last Admin: 05/28/24 09:03 Dose: Not Given Documented By: DANIAL Non-Admin Reason: IV Running Labs 05/27/24 14:44 05/28/24 09:51 Labs: Laboratory Results - last 24 hr 05/27/24 05/28/24 14:44 09:51 MCV 82.7 MCH 28.0 MCHC 33.9 RDW 13.8 Plt Count 279 MPV 9.3 L Absolute Nucleated RBC 0.000 Nucleated RBC % (auto) 0.0 Estim Creat Clear Calc 78.3 Estimated GFR > 60 Lactic Acid 1.7 Microbiology Microbiology Results: Microbiology 05/27/24 07:45 Gram Stain - Final Pilonidal Cyst Routine Culture - Preliminary Staphylococcus species 05/26/24 13:20 Blood Culture - Preliminary Blood - Venous No growth after 24 hours. 05/26/24 13:20 Blood Culture - Preliminary Blood - Venous No growth after 24 hours. Assessment and Plan (1) Perianal infection: Status: Acute (2) Sepsis: Status: Acute Plan 44y/o F hx of hiv and htn, fibromyalgia, history of pilonidal abscess-came with complaint of fever and pain to [facility], thought she had a pilonidal abscess. She had significant induration on exam, low grade fevers , has leukocytosis with a left shift, elevated ESR/CRP, CT which shows severe edema/inflammatory process involving the perianal soft tissues and extends to bilateral medial buttocks. CT states may be small pockets of associated fluid but no evidence of walled off, drainable abscess. possible Pilonidal abcess and sepsis : meet sepsis criteria has leukocytosis, fever Tachycardia due to pain normal Lactic acid and blood culture x4 pending wound culture -staph species Patient was started on IV Zosyn, pain management with IV Dilaudid. Also getting IV fluids. Surgery saw patient -s/p i&D , culture from abcess area sent , conitnue iv zosyn/added vanco(wound cultures -staph species). added Id eval. Hypertension: continue ab/hydrochlorothiazide. HIV: Continue home medications once reconciled. History of drug use:added On Suboxone. dvt prophylax:mech devices. Ongoing need for hospitlisation-sepsis with Pilonidal abcess: need iv antibiotics ,cultures ,need surgery follow up. Quality Stroke Does the patient have a stroke diagnosis?: No VTE Prior VTE?: No VTE Risk Level:: Medical - moderate - high VTE Device Contraindication: N/A - Device Ordered VTE Drug Contraindication: N/A - Med Ordered
--- NOTE | 2024-05-28 14:05 | PHA.PROG ---
Admission Date/Time: May 26, 2024 18:35 Indication: SKIN Weight in k kg Adjusted body weight in Kg: [place] body weight in Kg: Obesity Dosing Indication % IBW: Serum Creatinine - Last 168 Hours 05/26/24 05/28/24 13:20 09:51 Creatinine 0.80 0.84 Estimated CrCl and GFR - Last 168 Hours 05/26/24 05/28/24 13:20 09:51 Estim Creat Clear Calc 82.2 78.3 Estimated GFR > 60 > 60 Vancomycin Loading Dose: 1750 MG Current Vancomycin Dosing Regimen: 1000 MG Q12H Vancomycin Monitoring using AUC goal of 400 - 600 range with trough as surrogate marker: PSD=302 TROUGH=16.8 Date and Time for next Vancomycin Level to be drawn: 05/29/24 @1999 Pharmacist Comments on Vancomycin Plan: Vancomycin dosing will take advantage of [employer] as a clinical decision support tool that uses Bayesian modeling to calculate individual patient's pharmacokinetic parameters and forecast the patient's drug concentration time course with the target goal AUC 24 range of 400 - 600 mg/L/hr.
--- NOTE | 2024-05-28 14:10 | PC.NURSE ---
at 1410 Pt off unit and on med tele visiting hospitalized relative. aware and signed order. This RN handed off pt to med public safety telecommunicator. Pt stable at time of hand off.
--- NOTE | 2024-05-28 15:16 | P.PNGS_ITS ---
Subjective Subjective Date of Service: 05/28/24 Interval history: Patient reports pain around the pilonidal cyst. Physical Exam 2 Vital Signs: Vital Signs: Last Vital Signs Temp 98.1 F 05/28/24 11:38 Pulse 80 05/28/24 11:38 Resp 18 05/28/24 11:38 BP 112/66 05/28/24 11:38 Pulse Ox 100 05/28/24 11:38 O2 Del Method Room Air 05/28/24 11:38 BMI result Body Mass Index 24.9 Const: General: no acute distress Nutritional Appearance: well nourished Orientation/consciousness: patient oriented x3 Limitations: no limitations Resp: Effort & Inspection: normal respiratory effort, no audible wheezes, no cough and no respiratory distress Back/Spine/Pelvis: Other: Dressings for pilonidal cyst changed. We changed the packing to quarter-inch iodoform gauze packing followed by fluffed gauze and ABD pad. The surrounding erythema is much improved and the wounds are draining nicely. Neuro: General: patient oriented x3 Extrem: General: Yes no clubbing, cyanosis or edema Objective Data Active Medications Acetaminophen (Acetaminophen 325 Mg Tablet) 975 mg PO Q6H [facility] Last Admin: 05/28/24 12:58 Dose: 975 mg Documented By: DANIAL Buprenorphine/Naloxone (Buprenorphine/Naloxone 8/2 Mg Film) 1 film SUBLINGUAL QID [facility] Last Admin: 05/28/24 12:58 Dose: 1 film Documented By: DANIAL Calcium Carbonate (Calcium Carbonate 750 Mg Tab.Chew) 750 mg PO Q4H PRN PRN Reason: Heartburn Darunavir (Darunavir Ethanolate 800 Mg Tablet) 800 mg PO DAILY [facility] Last Admin: 05/28/24 08:53 Dose: 800 mg Documented By: DANIAL Docusate Sodium (Docusate Sodium 100 Mg Capsule) 100 mg PO BID PRN PRN Reason: Constipation Elvitegravir/Cobicis/Emtricit/Tenof (Elviteg/Anika/Emtric/Tenofo Ala 150/150/200/10 Tablet) 1 tab PO DAILY [facility] Last Admin: 05/28/24 08:54 Dose: 1 tab Documented By: DANIAL Ferrous Sulfate (Ferrous Sulfate 324 Mg Tablet.) 324 mg PO DAILY [facility] Last Admin: 05/28/24 08:54 Dose: 324 mg Documented By: DANIAL Gabapentin (Gabapentin 400 Mg Capsule) 800 mg PO TID [facility] Last Admin: 05/28/24 08:53 Dose: 800 mg Documented By: DANIAL Hydromorphone HCl (Hydromorphone Hcl 1 Mg/Ml Syringe) 1 mg IVPUSH Q3H PRN; Protocol PRN Reason: Pain, Severe (Pain Scale 7-10) Last Admin: 05/28/24 13:04 Dose: 1 mg Documented By: DANIAL Hydromorphone HCl (Hydromorphone Hcl 2 Mg Tablet) 1 mg PO Q4H PRN PRN Reason: Pain, Moderate(Pain Scale 4-6) Hydroxyzine HCl (Hydroxyzine Hcl 25 Mg Tablet) 25 mg PO QID PRN PRN Reason: anxiety Piperacillin Sod/Tazobactam (Sod 3.375 gm/ Sodium Chloride) 50 mls @ 100 mls/hr IV Q6H [facility] Last Infusion: 05/28/24 14:02 Dose: Infused Documented By: DANIAL Lactated Ringer's (Lr) 1,000 mls @ 100 mls/hr IVCONT .Q10H [facility] Last Admin: 05/28/24 08:53 Dose: 100 mls/hr Documented By: DANIAL Magnesium Hydroxide (Milk Of Magnesia 30 Ml Oral.Susp) 30 ml PO DAILY PRN PRN Reason: Constipation Melatonin (Melatonin 3 Mg Tablet) 6 mg PO BEDTIME PRN PRN Reason: Insomnia Omeprazole (Omeprazole 20 Mg Capsule.Dr) 20 mg PO BID@0630,1600 PRN PRN Reason: Heart Burn Polyethylene Glycol (Polyethylene Glycol 3350 17 Gm Powd.Pack) 17 gm PO DAILY PRN PRN Reason: Constipation Sodium Chloride (0.9 % Sodium Chloride Flush 3 Ml Syringe) 3 ml IVFLUSH QSHIFT [facility] Last Admin: 05/28/24 09:03 Dose: Not Given Documented By: DANIAL Non-Admin Reason: IV Running Labs 05/27/24 14:44 05/28/24 09:51 Labs: Laboratory Results - last 24 hr 05/28/24 09:51 Estim Creat Clear Calc 78.3 Estimated GFR > 60 Microbiology Microbiology Results: Microbiology 05/27/24 07:45 Gram Stain - Final Pilonidal Cyst Routine Culture - Preliminary Staphylococcus species 05/26/24 13:20 Blood Culture - Preliminary Blood - Venous No growth after 24 hours. 05/26/24 13:20 Blood Culture - Preliminary Blood - Venous No growth after 24 hours. Procedures Date of Service Date of Service: 05/28/24 Progress Note: A&P Assessment and plan (1) Pilonidal cyst with abscess: Status: Acute Plan 44-year-old female patient with history of pilonidal cyst abscess status post incision and drainage pod 1. Wounds are much improved but still draining a significant amount of purulent material. She will need twice daily dressing changes while in the hospital. Time Spent With Patient Time: Total time managing care of this patient today ____ minutes. Quality Stroke Does the patient have a stroke diagnosis?: No VTE Prior VTE?: No VTE Risk Level:: Medical - moderate - high VTE Device Contraindication: N/A - Device Ordered VTE Drug Contraindication: N/A - Med Ordered
[2024-05-28] MEDS: HYDROmorphone HCl 2 MG TABLET 1 MG PO ×2 (15:20→20:00)
[2024-05-28] MEDS: 0.9 % Sodium Chloride Flush 3 ML SYRINGE IVFLUSH (15:21)
[2024-05-28] MEDS: Ibuprofen 600 MG TABLET PO (21:21)
[2024-05-28] MEDS: hydrOXYzine HCL 25 MG TABLET PO (21:22)
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
[2024-05-28] MEDS: vancomycin HCL 1,000 MG in 0.9 % Sodium Chloride 250 ML 270 MG IV (23:13)
[2024-05-29] MEDS: Piperacillin Sodium/Tazobactam 3.375 GM in 0.9 % Sodium Chloride 50 ML IV ×4 (00:36→18:39)
[2024-05-29] MEDS: Acetaminophen 325 MG TABLET 975 MG PO ×4 (00:39→18:31)
--- NOTE | 2024-05-29 03:12 | PC.NURSE ---
Addendum entered by Esmer Quinteros RN 05/29/24 03:24: At 2100, pt went to the BR and her wound dressing leaked out blood as reported by PUBLIC HEALTH ASSISTANT, also temp was rechecked and went up to 101.8 oral, Dr. Welch was notified, Ibuprofen tab ordered for fever, pt was still in the BR when revisited, later meds was offered and pt came out of the BR upset and angry as pt was still leaking blood from her gluteal cleft wound, offered to changed the dressing and wound be clean, purulent blood mod amount of discharge noted, covered with fluffy gauze and abdl pad, meds also was given, pt settled in bed after. Original Note: Pt seen on bed and ambulating ad wilbert around room at shift start alert and oriented, routine vitals taken and pt has a slight fever of 100/oral, prn Dilaudid po given for c/o pain, pt was offered cold packs but refused Dr. Welch was made aware.
[2024-05-29] MEDS: Lactated Ringers 1,000 ML 100 ML IVCONT ×2 (03:24→15:13)
[2024-05-29 03:44] VITALS: BP 114/66; PULSE 61; RESP 16; TEMP 36.2; O2SAT 99
[2024-05-29 07:36] LABS: Creatinine Clr Calc Pharmacy 106.1; Estimated Glomerular Filt Rate > 60
[2024-05-29 08:34] VITALS: BP 120/82; PULSE 103; RESP 18; TEMP 36.7; O2SAT 98
[2024-05-29] MEDS: Darunavir Ethanolate 800 MG TABLET PO (09:15)
[2024-05-29] MEDS: Gabapentin 400 MG CAPSULE 800 MG PO ×3 (09:15→21:07)
[2024-05-29] MEDS: Elviteg/Cobi/Emtric/Tenofo Ala 150/150/200/10 TABLET 1 TAB PO (09:15)
[2024-05-29] MEDS: Buprenorphine/Naloxone 8/2 mg FILM 1 FILM SUBLINGUAL ×4 (09:15→21:07)
[2024-05-29] MEDS: Ferrous Sulfate 324 MG TABLET.DR PO (09:16)
[2024-05-29] MEDS: HYDROmorphone HCl 1 MG/ML SYRINGE IVPUSH ×2 (09:26→16:28)
[2024-05-29] MEDS: 0.9 % Sodium Chloride Flush 3 ML SYRINGE IVFLUSH ×2 (09:49→15:23)
[2024-05-29] MEDS: vancomycin HCL 1,000 MG in 0.9 % Sodium Chloride 250 ML 270 MG IV (10:33)
[2024-05-29 12:00] VITALS: BP 100/61; PULSE 74; RESP 12; TEMP 37.1; O2SAT 100
--- NOTE | 2024-05-29 12:48 | HO.PM.IMPN ---
Subjective Subjective Date of Service: 05/29/24 Interval History: Pilonidal abcess Review of Systems still has pain/soarness in pilonidal area no fevers Physical Exam Vital Signs: Vital Signs: Last Vital Signs Temp 98.1 F 05/29/24 08:34 Pulse 103 H 05/29/24 08:34 Resp 18 05/29/24 08:34 BP 120/82 05/29/24 08:34 Pulse Ox 98 05/29/24 08:34 O2 Del Method Room Air 05/29/24 08:34 BMI result Body Mass Index 24.9 Appearance: Alert.? Oriented X3.? cvs: rrr, [id number]. res: clear to auscultation ,no rhonchii or wheezing abd: no rebound or guarding ,nt, bs present. ext pulses present , no cyanosis skin-has soarness /pain ,please see surgery note(05/27/24). neuro: axo3 , nonfocal. Objective Data Active Medications Acetaminophen (Acetaminophen 325 Mg Tablet) 975 mg PO Q6H [facility] Last Admin: 05/29/24 06:34 Dose: 975 mg Documented By: KING Buprenorphine/Naloxone (Buprenorphine/Naloxone 8/2 Mg Film) 1 film SUBLINGUAL QID [facility] Last Admin: 05/29/24 09:15 Dose: 1 film Documented By: ERICA Calcium Carbonate (Calcium Carbonate 750 Mg Tab.Chew) 750 mg PO Q4H PRN PRN Reason: Heartburn Darunavir (Darunavir Ethanolate 800 Mg Tablet) 800 mg PO DAILY [facility] Last Admin: 05/29/24 09:15 Dose: 800 mg Documented By: ERICA Docusate Sodium (Docusate Sodium 100 Mg Capsule) 100 mg PO BID PRN PRN Reason: Constipation Elvitegravir/Cobicis/Emtricit/Tenof (Elviteg/Anika/Emtric/Tenofo Ala 150/150/200/10 Tablet) 1 tab PO DAILY [facility] Last Admin: 05/29/24 09:15 Dose: 1 tab Documented By: ERICA Ferrous Sulfate (Ferrous Sulfate 324 Mg Tablet.) 324 mg PO DAILY [facility] Last Admin: 05/29/24 09:16 Dose: 324 mg Documented By: ERICA Gabapentin (Gabapentin 400 Mg Capsule) 800 mg PO TID [facility] Last Admin: 05/29/24 09:15 Dose: 800 mg Documented By: ERICA Hydromorphone HCl (Hydromorphone Hcl 1 Mg/Ml Syringe) 1 mg IVPUSH Q3H PRN; Protocol PRN Reason: Pain, Severe (Pain Scale 7-10) Last Admin: 05/29/24 09:26 Dose: 1 mg Documented By: ERICA Hydroxyzine HCl (Hydroxyzine Hcl 25 Mg Tablet) 25 mg PO QID PRN PRN Reason: anxiety Last Admin: 05/28/24 21:22 Dose: 25 mg Documented By: KING Piperacillin Sod/Tazobactam (Sod 3.375 gm/ Sodium Chloride) 50 mls @ 100 mls/hr IV Q6H [facility] Last Infusion: 05/29/24 10:41 Dose: Infused Documented By: ERICA Lactated Ringer's (Lr) 1,000 mls @ 100 mls/hr IVCONT .Q10H [facility] Last Admin: 05/29/24 03:24 Dose: 100 mls/hr Documented By: KING Vancomycin HCl 1,000 mg/ (Sodium Chloride) 270 mls @ 270 mls/hr IV Q12H [facility] Last Admin: 05/29/24 10:33 Dose: 270 mls/hr Documented By: ERICA Magnesium Hydroxide (Milk Of Magnesia 30 Ml Oral.Susp) 30 ml PO DAILY PRN PRN Reason: Constipation Melatonin (Melatonin 3 Mg Tablet) 6 mg PO BEDTIME PRN PRN Reason: Insomnia Omeprazole (Omeprazole 20 Mg Capsule.Dr) 20 mg PO BID@0630,1600 PRN PRN Reason: Heart Burn Oxycodone HCl (Oxycodone Hcl Immed Release 5 Mg Tablet) 10 mg PO Q4H PRN PRN Reason: Pain, Moderate(Pain Scale 4-6) Pharmacy Consult (Consult Rx Vancomycin Dosing) 1 each MISCELLANE DAILY PRN PRN Reason: Consult order Polyethylene Glycol (Polyethylene Glycol 3350 17 Gm Powd.Pack) 17 gm PO DAILY PRN PRN Reason: Constipation Sodium Chloride (0.9 % Sodium Chloride Flush 3 Ml Syringe) 3 ml IVFLUSH QSHIFT [facility] Last Admin: 05/29/24 09:49 Dose: 3 ml Documented By: ERICA Labs 05/27/24 14:44 05/29/24 06:08 Labs: Laboratory Results - last 24 hr 05/29/24 06:08 Hold Purple Top SEE NOTE Estim Creat Clear Calc 106.1 Estimated GFR > 60 Microbiology Microbiology Results: Microbiology 05/27/24 07:45 Gram Stain - Final Pilonidal Cyst Routine Culture - Final Methicillin Res Staph Aureus 05/27/24 14:43 Blood Culture - Preliminary Blood - Venous No growth after 24 hours. 05/27/24 14:43 Blood Culture - Preliminary Blood - Venous No growth after 24 hours. 05/26/24 13:20 Blood Culture - Preliminary Blood - Venous No growth after 48 hours. 05/26/24 13:20 Blood Culture - Preliminary Blood - Venous No growth after 48 hours. Assessment and Plan (1) Perianal infection: Status: Acute (2) Sepsis: Status: Acute Plan 44y/o F hx of hiv and htn, fibromyalgia, history of pilonidal abscess-came with complaint of fever and pain to [facility], thought she had a pilonidal abscess. She had significant induration on exam, low grade fevers , has leukocytosis with a left shift, elevated ESR/CRP, CT which shows severe edema/inflammatory process involving the perianal soft tissues and extends to bilateral medial buttocks. CT states may be small pockets of associated fluid but no evidence of walled off, drainable abscess. possible Pilonidal abcess and sepsis : meet sepsis criteria has leukocytosis, fever Tachycardia due to pain normal Lactic acid and blood culture x4 pending wound culture -mrsa. Patient was started on IV Zosyn, pain management with IV Dilaudid. Also getting IV fluids. Surgery saw patient -s/p i&D , culture from abcess area sent , conitnue iv zosyn/added vanco(wound cultures -mrsa). added Id eval. Hypertension: continue ab/hydrochlorothiazide. HIV: Continue home medications once reconciled. History of drug use:added On Suboxone. dvt prophylax:mech devices. Ongoing need for hospitlisation-sepsis with Pilonidal abcess: need iv antibiotics ,cultures ,need surgery follow up. Quality Stroke Does the patient have a stroke diagnosis?: No VTE Prior VTE?: No VTE Risk Level:: Medical - moderate - high VTE Device Contraindication: N/A - Device Ordered VTE Drug Contraindication: N/A - Med Ordered
[2024-05-29] MEDS: oxyCODONE HCl Immed Release 5 MG TABLET 10 MG PO ×2 (15:22→23:07)
[2024-05-29 15:56] VITALS: BP 116/67; PULSE 87; RESP 18; TEMP 36.9; O2SAT 99
[2024-05-29 19:23] VITALS: BP 124/75; PULSE 83; RESP 16; TEMP 36.6; O2SAT 94
[2024-05-29] MEDS: hydrOXYzine HCL 25 MG TABLET PO (21:07)
[2024-05-29] MEDS: vancomycin HCL 1,500 MG in 0.9 % Sodium Chloride 500 ML 333.33 MG IV (23:02)
[2024-05-29 23:25] VITALS: BP 122/74; PULSE 80; RESP 18; TEMP 36.4; O2SAT 96
[2024-05-30] MEDS: Piperacillin Sodium/Tazobactam 3.375 GM in 0.9 % Sodium Chloride 50 ML IV ×4 (00:52→18:10)
[2024-05-30] MEDS: Acetaminophen 325 MG TABLET 975 MG PO ×3 (00:55→18:09)
[2024-05-30] MEDS: HYDROmorphone HCl 1 MG/ML SYRINGE IVPUSH ×3 (02:46→22:37)
[2024-05-30 04:00] VITALS: BP 105/58; PULSE 72; RESP 18; TEMP 36.8; O2SAT 98
[2024-05-30] MEDS: Lactated Ringers 1,000 ML 100 ML IVCONT (05:55)
[2024-05-30 06:26] LABS: Creatinine Clr Calc Pharmacy 111.5; Estimated Glomerular Filt Rate > 60
[2024-05-30 07:33] VITALS: BP 128/80; PULSE 89; RESP 18; TEMP 36.3; O2SAT 99
[2024-05-30] MEDS: Buprenorphine/Naloxone 8/2 mg FILM 1 FILM SUBLINGUAL ×4 (08:42→20:44)
[2024-05-30] MEDS: Ferrous Sulfate 324 MG TABLET.DR PO (08:43)
[2024-05-30] MEDS: Gabapentin 400 MG CAPSULE 800 MG PO ×3 (08:43→20:43)
[2024-05-30] MEDS: Darunavir Ethanolate 800 MG TABLET PO (10:23)
[2024-05-30] MEDS: Elviteg/Cobi/Emtric/Tenofo Ala 150/150/200/10 TABLET 1 TAB PO (10:23)
--- NOTE | 2024-05-30 11:02 | HO.PM.IMPN ---
Subjective Subjective Date of Service: 05/30/24 Interval History: Pilonidal abcess Review of Systems has pain significant/also some drainage no fevers Physical Exam Vital Signs: Vital Signs: Last Vital Signs Temp 97.3 F 05/30/24 07:33 Pulse 89 05/30/24 07:33 Resp 18 05/30/24 07:33 BP 128/80 05/30/24 07:33 Pulse Ox 99 05/30/24 07:33 O2 Del Method Room Air 05/30/24 07:33 BMI result Body Mass Index 24.9 Appearance: Alert.? Oriented X3.? cvs: rrr, [id number]. res: clear to auscultation ,no rhonchii or wheezing abd: no rebound or guarding ,nt, bs present. ext pulses present , no cyanosis skin-has soarness /pain ,please see surgery note(05/27/24). neuro: axo3 , nonfocal. Objective Data Active Medications Acetaminophen (Acetaminophen 325 Mg Tablet) 975 mg PO Q6H [facility] Last Admin: 05/30/24 05:55 Dose: Not Given Documented By: KING Non-Admin Reason: Patient Refused Buprenorphine/Naloxone (Buprenorphine/Naloxone 8/2 Mg Film) 1 film SUBLINGUAL QID [facility] Last Admin: 05/30/24 08:42 Dose: 1 film Documented By: ERICA Calcium Carbonate (Calcium Carbonate 750 Mg Tab.Chew) 750 mg PO Q4H PRN PRN Reason: Heartburn Darunavir (Darunavir Ethanolate 800 Mg Tablet) 800 mg PO DAILY [facility] Last Admin: 05/30/24 10:23 Dose: 800 mg Documented By: ERICA Docusate Sodium (Docusate Sodium 100 Mg Capsule) 100 mg PO BID PRN PRN Reason: Constipation Elvitegravir/Cobicis/Emtricit/Tenof (Elviteg/Anika/Emtric/Tenofo Ala 150/150/200/10 Tablet) 1 tab PO DAILY [facility] Last Admin: 05/30/24 10:23 Dose: 1 tab Documented By: ERICA Ferrous Sulfate (Ferrous Sulfate 324 Mg Tablet.) 324 mg PO DAILY [facility] Last Admin: 05/30/24 08:43 Dose: 324 mg Documented By: ERICA Gabapentin (Gabapentin 400 Mg Capsule) 800 mg PO TID [facility] Last Admin: 05/30/24 08:43 Dose: 800 mg Documented By: ERICA Hydromorphone HCl (Hydromorphone Hcl 1 Mg/Ml Syringe) 1 mg IVPUSH Q3H PRN; Protocol PRN Reason: Pain, Severe (Pain Scale 7-10) Last Admin: 05/30/24 09:00 Dose: 1 mg Documented By: ERICA Hydroxyzine HCl (Hydroxyzine Hcl 25 Mg Tablet) 25 mg PO QID PRN PRN Reason: anxiety Last Admin: 05/29/24 21:07 Dose: 25 mg Documented By: KING Piperacillin Sod/Tazobactam (Sod 3.375 gm/ Sodium Chloride) 50 mls @ 100 mls/hr IV Q6H [facility] Last Infusion: 05/30/24 06:26 Dose: Infused Documented By: KING Vancomycin HCl 1,500 mg/ (Sodium Chloride) 500 mls @ 333.333 mls/hr IV Q12H [facility] Last Infusion: 05/30/24 00:37 Dose: Infused Documented By: KING Magnesium Hydroxide (Milk Of Magnesia 30 Ml Oral.Susp) 30 ml PO DAILY PRN PRN Reason: Constipation Melatonin (Melatonin 3 Mg Tablet) 6 mg PO BEDTIME PRN PRN Reason: Insomnia Omeprazole (Omeprazole 20 Mg Capsule.Dr) 20 mg PO BID@0630,1600 PRN PRN Reason: Heart Burn Oxycodone HCl (Oxycodone Hcl Immed Release 5 Mg Tablet) 10 mg PO Q4H PRN PRN Reason: Pain, Moderate(Pain Scale 4-6) Last Admin: 05/29/24 23:07 Dose: 10 mg Documented By: KING Pharmacy Consult (Consult Rx Vancomycin Dosing) 1 each MISCELLANE DAILY PRN PRN Reason: Consult order Polyethylene Glycol (Polyethylene Glycol 3350 17 Gm Powd.Pack) 17 gm PO DAILY PRN PRN Reason: Constipation Sodium Chloride (0.9 % Sodium Chloride Flush 3 Ml Syringe) 3 ml IVFLUSH QSHIFT [facility] Last Admin: 05/30/24 09:56 Dose: Not Given Documented By: ERICA Non-Admin Reason: IV Running Labs 05/27/24 14:44 05/30/24 05:52 Labs: Laboratory Results - last 24 hr 05/29/24 05/30/24 21:01 05:52 Estim Creat Clear Calc 111.5 Estimated GFR > 60 Vancomycin Trough 8.0 L Microbiology Microbiology Results: Microbiology 05/27/24 14:43 Blood Culture - Preliminary Blood - Venous No growth after 48 hours. 05/27/24 14:43 Blood Culture - Preliminary Blood - Venous No growth after 48 hours. 05/27/24 07:45 Gram Stain - Final Pilonidal Cyst Routine Culture - Final Methicillin Res Staph Aureus Assessment and Plan (1) Perianal infection: Status: Acute (2) Sepsis: Status: Acute Plan 44y/o F hx of hiv and htn, fibromyalgia, history of pilonidal abscess-came with complaint of fever and pain to [facility], thought she had a pilonidal abscess. She had significant induration on exam, low grade fevers , has leukocytosis with a left shift, elevated ESR/CRP, CT which shows severe edema/inflammatory process involving the perianal soft tissues and extends to bilateral medial buttocks. CT states may be small pockets of associated fluid but no evidence of walled off, drainable abscess. possible Pilonidal abcess and sepsis : meet sepsis criteria has leukocytosis, fever Tachycardia due to pain normal Lactic acid and blood culture x4 pending wound culture -mrsa. has significant pain Patient was started on IV Zosyn, pain management with IV Dilaudid. Also getting IV fluids. Surgery saw patient -s/p i&D , culture from abcess area sent , conitnue iv zosyn/added vanco(wound cultures -mrsa). Id follow up for antibiotics duration Hypertension: continue ab/hydrochlorothiazide. HIV: Continue home medications once reconciled. History of drug use:added On Suboxone. dvt prophylax:mech devices. Ongoing need for hospitlisation-sepsis with Pilonidal abcess: need iv antibiotics ,iv pain meds,cultures ,need surgery follow up.Id followup Quality Stroke Does the patient have a stroke diagnosis?: No VTE Prior VTE?: No VTE Risk Level:: Medical - moderate - high VTE Device Contraindication: N/A - Device Ordered VTE Drug Contraindication: N/A - Med Ordered
[2024-05-30] MEDS: vancomycin HCL 1,500 MG in 0.9 % Sodium Chloride 500 ML 333.33 MG IV (11:37)
[2024-05-30 12:00] VITALS: BP 132/74; PULSE 72; RESP 18; TEMP 36.8; O2SAT 99
[2024-05-30 15:07] VITALS: BP 144/86; PULSE 66; RESP 16; TEMP 36.1; O2SAT 100
[2024-05-30] MEDS: oxyCODONE HCl Immed Release 5 MG TABLET 10 MG PO ×2 (16:22→20:43)
[2024-05-30 19:35] VITALS: BP 131/71; PULSE 75; RESP 16; TEMP 36.6; O2SAT 100
[2024-05-30] MEDS: hydrOXYzine HCL 25 MG TABLET PO (20:47)
[2024-05-30] MEDS: 0.9 % Sodium Chloride Flush 3 ML SYRINGE IVFLUSH (20:48)
[2024-05-30 21:53] LABS: Vancomycin Random 13.4 mcg/mL (15-20)
[2024-05-30 23:35] VITALS: BP 132/83; PULSE 69; RESP 16; TEMP 36.1; O2SAT 99
[2024-05-31] MEDS: vancomycin HCL 1,500 MG in 0.9 % Sodium Chloride 500 ML 333.33 MG IV (00:11)
[2024-05-31] MEDS: Acetaminophen 325 MG TABLET 975 MG PO ×2 (00:12→06:15)
[2024-05-31] MEDS: Piperacillin Sodium/Tazobactam 3.375 GM in 0.9 % Sodium Chloride 50 ML IV ×2 (00:12→06:17)
[2024-05-31 03:15] VITALS: BP 136/86; PULSE 69; RESP 16; TEMP 36.1; O2SAT 99
[2024-05-31 06:48] LABS: Creatinine Clr Calc Pharmacy 117.5; Estimated Glomerular Filt Rate > 60
[2024-05-31] MEDS: Gabapentin 400 MG CAPSULE 800 MG PO (06:56)
[2024-05-31] MEDS: Darunavir Ethanolate 800 MG TABLET PO (06:56)
[2024-05-31] MEDS: oxyCODONE HCl Immed Release 5 MG TABLET 10 MG PO ×2 (06:56→11:02)
[2024-05-31] MEDS: Ferrous Sulfate 324 MG TABLET.DR PO (06:56)
[2024-05-31] MEDS: Elviteg/Cobi/Emtric/Tenofo Ala 150/150/200/10 TABLET 1 TAB PO (06:56)
[2024-05-31] MEDS: 0.9 % Sodium Chloride Flush 3 ML SYRINGE IVFLUSH (06:58)
[2024-05-31 07:39] VITALS: BP 121/81; PULSE 76; RESP 15; TEMP 36; O2SAT 100
[2024-05-31] MEDS: Doxycycline Monohydrate 100 MG CAPSULE PO (08:31)
[2024-05-31] MEDS: Buprenorphine/Naloxone 8/2 mg FILM 1 FILM SUBLINGUAL (08:31)
--- NOTE | 2024-05-31 09:22 | HO.WOUND ---
Wound consult: Deferred to General Surgery Wound consult received for topical recommendations and assessment for Pilonidal Cyst s/p I&D by Dr. Childs - he has topical orders in place for direct care team for twice a day dressing changes. TT to Dr. Caruso no need to see at this time. Will defer to General Surgery.
--- NOTE | 2024-05-31 10:37 | MHC.CM.PN ---
Per MD rounds patient medically cleared for dc home self care. Son will assist w/ dressing changes PRN. Will be sent home w/ supplies. Son will provide transport home at 11:30am. RN and aware.
--- NOTE | 2024-05-31 10:52 | P.DS_ITS ---
DS: Providers Provider Date of Service: 05/31/24 Date of admission: 05/26/24 18:35 Date of discharge: 05/31/24 Primary care physician: Shala Shields MD Admitting clinician: Filiberto Caruso Attending physician on admission: Filiberto Caruso Consults: 05/27/24 13:13 Consult to Infectious Diseases Routine Consulting Provider: [facility] Reason for consultation: buttock,pilonidal abcess Has provider been notified: No 05/28/24 10:36 Consult to General Surgery Routine Consulting Provider: [facility] Reason for consultation: pilonidal abcess Has provider been notified: No 05/30/24 10:33 Consult to Wound Care Routine Reason for consultation: pilonidal abcess Has provider been notified: No DS: Diagnosis Discharge Diagnosis (1) Perianal infection: Status: Acute (2) Sepsis: Status: Acute DS: Summary Hospital Course Hospital Course: HPI:44y/o F hx of hiv and htn, fibromyalgia fibromyalgia, history of pilonidal abscess-came with complaint of fever and pain to [facility], thought she had a pilonidal abscess. She had significant induration on exam, low grade fevers , has leukocytosis with a left shift, elevated ESR/CRP, CT which shows severe edema/inflammatory process involving the perianal soft tissues and extends to bilateral medial buttocks. CT states may be small pockets of associated fluid but no evidence of walled off, drainable abscess. ED discussed the case with Dr. Childs who says he will see her in the morning but she needs admission for IV abx. Has significant pain in the pilonidal area and medial buttocks, has mild leukocytosis of 14.1, in the hospital did not had significant fevers, tachycardia likely related to the pain. ED had drawn the lactic acid and blood cultures sent,also on ivf and given zosyn -requested admssion for cellulitis vs pilonidal abcess ? Hospital course: possible Pilonidal abcess and sepsis : Patient came with leukocytosis, fever, lactic acid normal, blood cultures sent, started on IV antibiotics-surgery consulted: Status post I and D of pilonidal abscess, surgery also set wound c ulture. With above supportive tender care patient seems to be improved significantly-no drainage or pain currently, leukocytosis improving, no fever. Ambulating well. Patient was seen by ID: Blood culture negative at 48 hour, wound culture growing MRSA(senstivities reviewed with ID) : Patient will be going home on p.o. doxycycline for 10 days. plan: complete 100 mg doxycycline p.o. b.i.d. for 10 days. Change dressing over pilonidal cyst area with fluff gauze followed by ABD and paper tape twice daily. Patient said that her son is going to be helping with her dressings. Above management discussed with the patient in detail length she understand in agreement with the above plan, time spent 40 minute. Time Attestation Total time managing care of this patient today: 40 mintues. Discharge Coordination Time (in mins): 40 min Quality: Safe Use of Opioids Does Pt have an Active Cancer Diagnosis on the Problem List?: No Quality: Stroke Does the patient have a stroke diagnosis?: No Physical Exam Vital Signs: Vital Signs: Last Vital Signs Temp 96.8 F 05/31/24 07:39 Pulse 76 05/31/24 07:39 Resp 15 05/31/24 07:39 BP 121/81 05/31/24 07:39 Pulse Ox 100 05/31/24 07:39 O2 Del Method Room Air 05/31/24 07:39 BMI result Body Mass Index 24.9 Appearance: Alert.? Oriented X3.? cvs: rrr, [id number]. res: clear to auscultation ,no rhonchii or wheezing abd: no rebound or guarding ,nt, bs present. ext pulses present , no cyanosis skin-pain improved , mild soarness , no discharge. neuro: axo3 , nonfocal. DS: Data Data Completed and Pending Completed studies during hospitalization [Text1]: Procedures Excision of Lumbar Vertebral Disc, Open Approach (11/18/23) Fusion of Lumbar Vertebral Joint with Interbody Fusion Device, Anterior Approach, Anterior Column, Open Approach (11/18/23) Insertion of Interspinous Process Spinal Stabilization Device into Lumbar Vertebral Joint, Open Approach (11/18/23) Monitoring of Peripheral Nervous Electrical Activity, Intraoperative, External Approach (11/18/23) Labs on day of discharge: Laboratory Results - last 24 hr 05/30/24 05/31/24 20:58 05:25 Hold Purple Top SEE NOTE Creatinine 0.56 Estim Creat Clear Calc 117.5 Estimated GFR > 60 Random Vancomycin 13.4 L Preliminary micro results at discharge 05/27/24 14:43 Blood Culture - Preliminary Blood - Venous No growth after 48 hours. 05/27/24 14:43 Blood Culture - Preliminary Blood - Venous No growth after 48 hours. 05/26/24 13:20 Blood Culture - Preliminary Blood - Venous No growth after 48 hours. 05/26/24 13:20 Blood Culture - Preliminary Blood - Venous No growth after 48 hours. Discharge Plan Discharge Anticipated Discharge Date/Time: 05/31/24 07:36 Patient Disposition: Home, Self-Care Discharge Diagnosis: pilonidal abcess Referrals: Shine Childs MD [Physician] - 1 Week Shala Shields MD [Primary Care Provider] - 1 Week Discharge Medications: New doxycycline hyclate 100 mg capsule 100 mg PO Q12H Qty: 20 0RF Continued (DME) walker Misc See Rx Instructions .MEDSUPPLY Qty: 1 0RF Rx Instructions: Folding Front wheeled walker DURATION 99 DAYS (DME) cane Device See Rx Instructions .Route Qty: 1 0RF Rx Instructions: As directed docusate sodium [Colace] 100 mg Capsule 100 mg PO BID PRN (Reason: Constipation) ferrous sulfate 325 mg (65 mg iron) Tablet 325 mg PO DAILY polyethylene glycol 3350 17 gram Powder In Packet 17 g PO DAILY PRN (Reason: Constipation) pantoprazole 40 mg tablet,delayed release (DR/EC) 40 mg PO BID@0630,1600 PRN (Reason: Heart Burn) hydroxyzine pamoate 25 mg capsule 25 mg PO QID PRN (Reason: anxiety) Genvoya 128-155-173-10 mg tablet 1 tab PO DAILY acetaminophen 650 mg tablet extended release 650 mg PO TID gabapentin 800 mg tablet 800 mg PO TID buprenorphine-naloxone 8-2 mg film 1 film sublingual QID darunavir [Prezista] 800 mg tablet 800 mg PO DAILY hydrochlorothiazide 12.5 mg tablet 12.5 mg PO DAILY Discharge Orders: Discharge Order (Routine); Ordered 05/31/24 Ordered By: Filiberto Caruso Diet: Advance to usual diet Activity on Discharge: As tolerated Stand Alone Forms: Patient Portal Discharge page, Work/School Release Print Language: Yakut Care Plan Goals: possible Pilonidal abcess and sepsis : Patient came with leukocytosis, fever, lactic acid normal, blood cultures sent, started on IV antibiotics-surgery consulted: Status post I and D of pilonidal abscess, surgery also set wound culture. With above supportive tender care patient seems to be improved significantly-no drainage or pain currently, leukocytosis improving, no fever. Ambulating well. Patient was seen by ID: Blood culture negative at 48 hour, wound culture growing MRSA , sensitivities reviewed: Patient will be going home on p.o. doxycycline for 10 days. Health Concerns: as above. complete 100 mg doxycycline p.o. b.i.d. for 10 days. Change dressing over pilonidal cyst area with fluff gauze followed by ABD and paper tape twice daily. Patient said that her son is going to be helping with her dressings. Plan of Treatment: as above. Assessment: as above. Discharge Date/Time: 05/31/24 11:48
== END 2024-05-31 11:48 | disposition home or self-care (01) | DRG 720 ==
LOC: HO.ED 18:12 → HO.EDOVER 18:48 → HO.S3 19:39
PROVIDERS: Internal Medicine; Physician Assistant; Registered Nurse Emergency; Admitting Provider Internal Medicine; Emergency Provider Student in an Organized Health Care Education/Training Program; PCP Internal Medicine; Visit Provider Internal Medicine
DX: A41.9 Sepsis, unspecified organism (principal); F11.20 Opioid dependence, uncomplicated; B95.62 Methicillin resistant Staphylococcus aureus infection as the cause of diseases classified elsewhere; L05.01 Pilonidal cyst with abscess; M79.7 Fibromyalgia; I10 Essential (primary) hypertension; Z21 Asymptomatic human immunodeficiency virus [HIV] infection status; Z79.899 Other long term (current) drug therapy
CPT/HCPCS: 36415; 72193; 80048; 80076; 80202; 82565; 83605; 85025; 85027; 85652; 86140; 87040; 87070; 87077; 87186; 87205; 99202; 99285; J1171; J1885; J2270; J2543; J3370; J3371; J7120; Q9967

== ENCOUNTER → 2024-05-26 15:09 | Outpatient (BNV) | payer OTHER, SELFPAY | PROVIDERS: Emergency Provider Student in an Organized Health Care Education/Training Program; Visit Provider Radiology Diagnostic Radiology | DX: Z47.1 Aftercare following joint replacement surgery (principal) | CPT/HCPCS: 72193 ==

== ENCOUNTER → 2024-05-26 18:35 | Outpatient (BNV) | payer OTHER, SELFPAY | PROVIDERS: Admitting Provider Internal Medicine; Emergency Provider Student in an Organized Health Care Education/Training Program; PCP Internal Medicine; Visit Provider Internal Medicine | DX: A41.9 Sepsis, unspecified organism (principal); K62.89 Other specified diseases of anus and rectum; B20 Human immunodeficiency virus [HIV] disease | CPT/HCPCS: 99222 ==

== ENCOUNTER → 2024-05-26 18:35 | Outpatient (BNV) | payer OTHER, SELFPAY | PROVIDERS: Admitting Provider Internal Medicine; Emergency Provider Student in an Organized Health Care Education/Training Program; Visit Provider Internal Medicine | DX: K62.89 Other specified diseases of anus and rectum (principal); A41.9 Sepsis, unspecified organism | CPT/HCPCS: 99231 ==

== ENCOUNTER → 2024-05-26 18:35 | Outpatient (BNV) | payer OTHER, SELFPAY | PROVIDERS: Admitting Provider Internal Medicine; Emergency Provider Student in an Organized Health Care Education/Training Program; Visit Provider Surgery | DX: L05.01 Pilonidal cyst with abscess (principal) | CPT/HCPCS: 10080; 99024; 99222 ==

== ENCOUNTER 2024-06-01 10:35 | Outpatient (AMB) | payer OTHER, SELFPAY ==
--- NOTE | 2024-06-01 10:40 | MHC.OFFVIS ---
Vital Signs 06/01/24 10:50 Height 5 ft 6 in Weight 154 lb 5.177 oz BMI 24.9 Respiration 16 Pulse 72 Intake Visit Reasons: s/p I&D pilonidal cyst Intake Note: Patient is seen in office for post op assessment post I&D of pilonidal cyst. Pt c/o: states area is still draining, painful, still on antbx surgery:05/27/24 Chemical Dependency Counselor Required: No Cable Television Access Coordinator: Cable Television Access Coordinator Present Accompanied by: Self / Same As Patient Allergies amlodipine Allergy (Verified 06/01/24 10:46) Swelling azithromycin Allergy (Verified 06/01/24 10:46) Rash rifabutin Allergy (Verified 06/01/24 10:46) Rash HPI Comments Details: 43-year-old female patient presenting with a large perirectal/pilonidal cyst abscess, status post incision and drainage as an inpatient last week. She was discharged from the hospital yesterday and presents today for wound check. She denies any fever or chills but does continue to have pain especially when sitting. She reports continued discharge from the wounds. [facility] Medical History Back pain Numbness Elevated cholesterol Urinary incontinence Rosacea Osteoarthritis Lumbar radiculopathy Anemia Fibromyalgia EtOH dependence Cervical dysplasia Arthralgia of hip, right Depression HIV (human immunodeficiency virus infection) HTN (hypertension) Surgical History Hx of left knee surgery History of tubal ligation Hx of cone biopsy of cervix History of esophagogastroduodenoscopy (EGD) Social History Household Members: Children Housing: House Are you a primary career center director to a significant other at home: No Do you presently have visiting nurse or other home services: No Alcohol intake: current Alcohol intake frequency: holidays/special occasions only Patient Tobacco Use Status: Never used Tobacco Substance Use Type: Marijuana service: No Current occupational status: employed 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 Surrounding phlegmon noted but no undrained abscess is appreciated. Overall wounds look much improved from last week. Neuro General: patient oriented x3 Extrem General: No edema Assessment & Plan Assessment & Plan (1) Pilonidal cyst with abscess: Code(s): L05.01 - Pilonidal cyst with abscess Category: Medical Plan Patient examined following incision and drainage of pilonidal cyst abscess. Wounds are much improved and remain open and draining adequately. She should continue with the oral antibiotics as prescribed. I also recommended warm soaks on a daily basis. She should follow up in approximately 2 weeks for wound check. Coding Level of Care Code Global (49082) Diagnoses Pilonidal cyst with abscess L05.01
[2024-06-01 10:50] VITALS: PULSE 72; RESP 16; BMI 24.9
== END 2024-06-01 10:54 | disposition home or self-care (01) ==
PROVIDERS: PCP Internal Medicine; Visit Provider Surgery
DX: L05.01 Pilonidal cyst with abscess (principal)
CPT/HCPCS: 99024

== ENCOUNTER → 2024-06-01 10:35 | Outpatient (BNVA) | payer OTHER, SELFPAY | PROVIDERS: PCP Internal Medicine; Visit Provider Surgery | DX: Z48.817 Encounter for surgical aftercare following surgery on the skin and subcutaneous tissue (principal); Z98.890 Other specified postprocedural states; Z79.2 Long term (current) use of antibiotics | CPT/HCPCS: 99212 ==

== ENCOUNTER → 2024-06-17 09:34 | Outpatient (BNVA) | payer OTHER, SELFPAY | PROVIDERS: PCP Internal Medicine | DX: Z87.19 Personal history of other diseases of the digestive system (principal) | CPT/HCPCS: 99212 ==

== ENCOUNTER 2024-06-17 14:40 | Outpatient (AMB) | payer OTHER, SELFPAY ==
--- NOTE | 2024-06-17 14:49 | A.OFFVIS_ITS ---
Vital Signs 06/17/24 14:59 Height 5 ft 6 in Weight 154 lb 5.177 oz BMI 24.9 Intake Visit Reasons: 2 wks f/up, s/p I&D pilonidal cyst Intake Note: Patient is seen in office for 2 weeks follow up visit, following pilonidal cyst. Pt c/o: does not feel discomfort or discharge, all done with antbx, area is close and healing antbx - soaks Lamination Operator Required: No Stainless Steel Finisher: Stainless Steel Finisher Present Accompanied by: Family/Other Allergies amlodipine Allergy (Verified 06/17/24 15:00) Swelling azithromycin Allergy (Verified 06/17/24 15:00) Rash rifabutin Allergy (Verified 06/17/24 15:00) Rash HPI Comments Details: Patient returns following incision and drainage of a large perirectal abscess. She reports feeling much improved with no further pain, discharge or other symptoms related to the abscess. She completed the antibiotics and denies any fever, chills, nausea or vomiting. [facility] Medical History Back pain Elevated cholesterol Urinary incontinence Rosacea Osteoarthritis Lumbar radiculopathy Anemia Fibromyalgia EtOH dependence Cervical dysplasia Arthralgia of hip, right Depression HIV (human immunodeficiency virus infection) HTN (hypertension) Surgical History History of lumbar fusion History of excision of pilonidal cyst Hx of left knee surgery History of tubal ligation Hx of cone biopsy of cervix History of esophagogastroduodenoscopy (EGD) Social History Household Members: Children Housing: House Are you a primary healthcare management consultant to a significant other at home: No Do you presently have visiting nurse or other home services: No Alcohol intake: current Alcohol intake frequency: holidays/special occasions only Patient Tobacco Use Status: Never used Tobacco Substance Use Type: Marijuana service: No Current occupational status: employed 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 There is no palpable fluctuance, or induration. No skin erythema, no fistula formation. No evidence of ongoing infection. Neuro General: patient oriented x3 Extrem General: Yes no clubbing, cyanosis or edema Assessment & Plan Assessment & Plan (1) Perianal infection: Code(s): K62.89 - Other specified diseases of anus and rectum Category: Medical Plan Patient is infection is now completely healed with no evidence of ongoing abscess or infection. She should follow up as needed. Coding Level of Care Code Est Pt Level 3 (51465) Diagnoses Perianal infection K62.89
[2024-06-17 14:59] VITALS: BMI 24.9
--- OUTSIDE RECORDS SUMMARY | 2024-06-17 18:36 | XMS_ITS | Clinical Summary ---
Author Organization [employer] Address [address] [place] [address] Care Team Providers Care Hot Dimpling Machine Operator Name Role Phone Unavailable Primary Care Provider Unavailabl e Allergies Active Allergy Reactions Criticality Noted Date Comments Amlodipine 03/28/2023 Had Lower extremity ankle swelling with 10mg. Azithromycin 03/28/2023 Rash Rifabutin 03/28/2023 Other reaction(s): Rash Medications acetaminophen (Tylenol) 325 MG tablet 02/20/2023 Active Prezista 800 MG tablet 01/07/2023 Active Darunavir 800 MG tablet Take 800 mg by mouth. 02/20/2023 Active docusate sodium (Colace) 100 MG capsule Take 100 mg by mouth. 02/20/2023 Active elvitegravir-cob icistat-emtricit abine-tenofovir alafenamide (Genvoya) [phone] MG tablet Take 1 tablet by mouth. 02/20/2023 Active ferrous sulfate 325 (65 Fe) MG EC tablet 02/20/2023 Active hydrocortisone 0.5 % cream 12/12/2022 Active metroNIDAZOLE (Metrogel) 1 % gel Apply topically. 12/23/2022 Active Multiple Vitamins-Mineral s (Thera-M) tablet 02/20/2023 Active olmesartan-hydro CHLOROthiazide (BENIcar HCT) 40-25 MG tablet Take 1 tablet by mouth. 02/20/2023 Active pantoprazole (ProtoNix) 40 MG EC tablet 02/20/2023 Active polyethylene glycol, PEG, 3350 (Glycolax) 17 GM/SCOOP powder 02/20/2023 Active Active Problems Problem Noted Date Diagnosed Date Dental caries into pulp 03/28/2023 Dental caries 03/28/2023 Dental abscess 03/28/2023 Social History Tobacco Use Types Packs/Day Years Used Date Smoking Tobacco: Never Smokeless Tobacco: Never Tobacco Cessation:Counseling Given: Not Answered Comments Unknown Sex and Gender Information Value Date Recorded Sex Assigned at Female 03/18/2022 10:16 AM EDT Legal Sex Female 10:16 AM EDT Gender Identity Choose not to disclose 10:16 AM EDT Sexual Orientation Choose not to disclose 2021 10:16 AM EDT Last Filed Vital Signs Vital Sign Reading Time Taken Comments Blood Pressure 140/84 03/28/2023 8:52 AM EST Pulse 76 03/28/2023 8:52 AM EST Temperature - - Respiratory Rate - - Oxygen Saturation - - Inhaled Oxygen Concentration - - Weight - - Height - - Body Mass Index - - Plan of Treatment Health Maintenance Due Date Last Done Comments CT Colonography 1978 Colonoscopy 1978 Colorectal Cancer Screening 1978 Dental Prophylaxis 1978 Depression Screening 1978 FIT DNA/Cologuard 1978 FIT 1978 FOBT 1978 HIV Screening 1978 Lipid Panel 1978 SDOH Screening 1978 Sigmoidoscopy 1978 Meningococcal Vaccine (1 - Risk 2-dose series) 1980 Alcohol/Substance Use Screening 1990 Family Planning (PISQ) 1993 Hepatitis C Screening 1996 Hepatitis A Vaccines (1 of 2 - Risk 2-dose series) 1997 Zoster Vaccines (1 of 2) 1997 Pap Smear 1999 Cervical Cancer Screening 2008 HPV/Cotest 2008 Mammogram 2018 Hepatitis B Vaccines (2 of 3 - 19+ 3-dose series) 07/26/2021 06/28/2021 Dental Oral Exam 09/27/2023 03/28/2023, 12/19/2020 Dental X-Ray: Full Mouth 12/21/2023 12/19/2020 COVID-19 Vaccine ( season) 2024 04/04/2022, 11/02/2021, 03/08/2021, Additional history exists Tobacco Screening 03/28/2024 03/28/2023 Dental X-Ray: Bitewings 03/29/2024 03/28/2023, 12/19 Pneumococcal Vaccine: Pediatrics (0 to 5 Years) and At-Risk Patients (6 to 49) Years) (4 of 4 - PCV20 or PCV21) 2028 06/28/2021, 05/21/2017, 04/27/2013 DTaP/Tdap/Td Vaccines (3 - Td or Tdap) 11/14/2031 11/13/2021, 03/20/2010 RSV Patients and Patients Aged 60 years or older (1 - 1-dose 75+ series) 2053 Influenza Vaccine Completed 01/31/2024, , 02/22/2022, Additional history exists HIB Vaccines Aged Out No longer eligi ble based on patient's age to complete this topic HPV Vaccines Aged Out No longer eligi ble based on patient's age to complete this topic IPV Vaccines Aged Out No longer eligi ble based on patient's age to complete this topic RSV under 20 months Aged Out No longe r eligible based on patient's age to complete this topic Rotavirus Vaccines Aged Out No longer eligible based on patient's age to complete this topic Procedures Procedure Name Priority Date/Time Associated Diagnosis Comments BITEWINGS - 4 RADIOGRAPHIC IMAGES Routine 03/28/2023 9:00 AM EST Dental caries into pulp Dental caries Dental abscess PERIODIC ORAL EVALUATION - ESTABLISHED PATIENT Routine 03/28/2023 9:00 AM EST DIAGNOSTIC - DIAGNOSTIC IMAGING - INTRAORAL - COMPREHENSIVE SERIES OF RADIOGRAPHIC IMAGES Routine 12/19/2020 12:00 AM EDT from Last 3 Months or Most Recently Relevant to Health Maintenance Insurance [facility] MEDICAID STAND ADULT
== END 2024-06-17 16:42 | disposition home or self-care (01) ==
PROVIDERS: PCP Internal Medicine; Visit Provider Surgery
DX: K62.89 Other specified diseases of anus and rectum (principal)
CPT/HCPCS: 99213

== ENCOUNTER 2024-07-08 10:44 | Outpatient (REF) | payer OTHER, SELFPAY ==
--- NOTE | ~2024-07-08 | XR_ITS ---
EXAMINATION: XR HIP, RIGHT CLINICAL INFORMATION: M25.559 - Pain in unspecified hip COMPARISON: June 25, 2023. TECHNIQUE: Two views of the right hip. AP pelvis. FINDINGS: There is sclerosis and subchondral cyst formation along the articular surface of the acetabulum and femoral heads bilaterally more conspicuous on the right side. There is asymmetric joint space narrowing both coxofemoral joints. No acute cortical disruption or gross malalignment right hip. Sclerosis and the sacroiliac joint. Pseudoarthrosis of the left transverse processes of L5-S1. Transpedicle screws and posterior rods at L4-5 with intervertebral disc spacer placement no fully evaluated. XR/XR hip RT min 2V IMPRESSION: Moderate to severe osteoarthrosis, right coxofemoral joint. Moderate osteoarthrosis, left coxofemoral joint. Status post posterior lumbar fusion/arthrodesis L4-5. 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 Electronically signed by: Randy Cleary MD 07/09/2024 10:00 AM SUSAN
--- OUTSIDE RECORDS SUMMARY | 2024-07-09 11:49 | XMS_ITS | Clinical Summary ---
Author Organization [employer] Address [address] [place] [address] Care Team Providers Care Director International Name Role Phone Unavailable Primary Care Provider [...] 02/20/2023 Active elvitegravir-cob icistat-emtricit abine-tenofovir alafenamide (Genvoya) [phone] MG tablet Take 1 tablet by mouth. [...] Most Recently Relevant to Health Maintenance Insurance [facility] MEDICAID STAND ADULT
== END 2024-07-08 10:45 | disposition home or self-care (01) ==
LOC: HO.HOSX 10:44
PROVIDERS: Visit Provider Physician Assistant
DX: M25.551 Pain in right hip (principal); Z96.649 Presence of unspecified artificial hip joint
CPT/HCPCS: 73502; 99212

== ENCOUNTER 2024-07-08 14:47 | Outpatient (AMB) | payer OTHER, SELFPAY ==
--- NOTE | 2024-07-08 14:50 | A.OFFVIS_ITS ---
Intake Visit Reasons: Pre-Op: R YELITZA w/NE 07/13/24 Intake Note: Megan is a 44 year old female who presents today for a pre op appointment s/p right total hip arthroplasty 07/13/24 NE. Allergies amlodipine Allergy (Intermediate, Verified 07/08/24 15:06) Swelling azithromycin Allergy (Intermediate, Verified 07/08/24 15:06) Rash rifabutin Allergy (Intermediate, Verified 07/08/24 15:06) Rash HPI HPI Pre-Op: R YELITZA w/NE 07/13/24: Details: Ms. Tam Manning is a 44-year-old female who presents to the office today for her preoperative history and physical appointment pending right total hip arthroplasty with Dr. Casey scheduled for 07/13/2024. Patient does have a past medical history significant for a MRSA infection in regards to a pilonidal cyst in May of this year. Reportedly from the patient as well as a prior note from general surgery the infection has been eradicated with antibiotics and surgical intervention. Additionally, the patient does have a past medical h istory significant for HIV. She is currently on Suboxone and with the help of her clinic she has been weaning the dose slowly up until surgery. [facility] Medical History (Updated 06/23/24 @ 12:25 by Marci Canseco RN) MRSA (methicillin resistant Staphylococcus aureus) Esophageal ulcer Back pain Elevated cholesterol Urinary incontinence Rosacea Osteoarthritis Lumbar radiculopathy Anemia Fibromyalgia EtOH dependence Cervical dysplasia Arthralgia of hip, right Depression HIV (human immunodeficiency virus infection) HTN (hypertension) Surgical History (Updated 07/08/24 @ 15:24 by Ludy Patterson PA-C) History of lumbar fusion History of excision of pilonidal cyst Hx of left knee surgery History of tubal ligation Hx of cone biopsy of cervix History of esophagogastroduodenoscopy (EGD) Social History Household Members: Children Household Members Other:: 2 adult sons Housing: House Are you a primary career information specialist to a significant other at home: No Do you presently have visiting nurse or other home services: No Alcohol intake: current Alcohol intake frequency: former alcohol drinker Comment: uses walker on occasion Patient Tobacco Use Status: Never used Tobacco Substance Use Type: Marijuana service: No Current occupational status: employed 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 Tam Manning is a 44-year-old female who presents to the office today for her preoperative history and physical appointment pending right total hip arthroplasty with Dr. Casey scheduled for 07/13/2024. Patient does have a past medical history significant for a MRSA infection in regards to a pilonidal cyst in May of this year. Reportedly from the patient as well as a prior note from general surgery the infection has been eradicated with antibiotics and surgical intervention. Additionally, the patient does have a past medical history significant for HIV. She is currently on Suboxone and with the help of her clinic she has been weaning the dose slowly up until surgery. I discussed in detail the procedure and what to expect pre and post operatively. We discussed the risks, benefits and alternatives to the surgery as well as the rehabilitation course. The risks; which include, but are not limited to infection, bleeding, nerve injury, ongoing pain, swelling, and stiffness, perioperative risk of injury to bones and soft tissues, and blood clots. I?ve answered all questions and with their understanding they have consented to move forward with right total hip arthroplasty with Dr. Casey. Patient is able to take her aspirin postoperatively for DVT prophylaxis. X-rays were obtained in the office today for preoperative planning. Orders: Orders PT Evaluation and Treatment Today Z96.649 - Presence of unspecified artificial hip joint XR hip RT min 2V Today M25.559 - Pain in unspecified hip Coding Level of Care Code Global (46023) Diagnoses Arthralgia of right hip M25.551
--- OUTSIDE RECORDS SUMMARY | 2024-07-08 15:57 | XMS_ITS | Clinical Summary ---
Author Organization [employer] Address [address] [place] [address] Care Team Providers Care Paper Pattern Inspector Name Role Phone Unavailable Primary Care Provider [...] 02/20/2023 Active elvitegravir-cob icistat-emtricit abine-tenofovir alafenamide (Genvoya) [phone] MG tablet Take 1 tablet by mouth. [...] ESTABLISHED PATIENT Routine 03/28/2023 9:00 AM EST INTRAORAL - COMPLETE SERIES OF RADIOGRAPHIC IMAGES Routine 12/19/2020 12:00 AM EDT from Last 3 Months or Most Recently Relevant to Health Maintenance Insurance [facility] MEDICAID STAND ADULT
== END 2024-07-08 15:41 | disposition home or self-care (01) ==
PROVIDERS: PCP Internal Medicine; Visit Provider Physician Assistant
DX: M25.551 Pain in right hip (principal)
CPT/HCPCS: 99024

== ENCOUNTER → 2024-07-08 14:56 | Outpatient (BNV) | payer OTHER, SELFPAY | PROVIDERS: Visit Provider Radiology Diagnostic Radiology | DX: M16.0 Bilateral primary osteoarthritis of hip (principal) | CPT/HCPCS: 73502 ==

== ENCOUNTER 2024-07-13 05:50 | Day surgery (SDC) | payer OTHER, SELFPAY ==
[2024-06-23 12:06] VITALS: BP 129/81; PULSE 74; RESP 18; O2SAT 99; BMI 25.0
--- NOTE | 2024-06-23 12:26 | P.CONAN_ITS ---
Documented by User: Carrie De La Cruz NP 07/12/24 09:23 HPI - Anesthesia Eval Consult details Narrative: 44yo F for Right Hip Total Replacement, 07/13/24 Medically optimized per [facility] Hx ETOH abuse: None since 06/2023 Suboxone 8mg QID: Taper plan preop PMFSH Active Problems Active Problems: All Active Problems Sepsis (Acute) Perianal infection (Acute) Pilonidal cyst with abscess (Acute) Food impaction of esophagus (Acute) S/P lumbar fusion (Acute) Other bilateral secondary osteoarthritis of hip (Acute) Lumbar radiculopathy (Acute) Fibromyalgia (Acute) Osteoarthritis of right hip (Acute) Piriformis syndrome of right side (Acute) Tendinopathy of right gluteus medius (Acute) Arthralgia of right hip (Acute) COVID-19 (Acute) HIV (human immunodeficiency virus infection) (Acute) Past Medical History Medical History MRSA (methicillin resistant Staphylococcus aureus) Esophageal ulcer Back pain Elevated cholesterol Urinary incontinence Rosacea Osteoarthritis Lumbar radiculopathy Anemia Fibromyalgia EtOH dependence Cervical dysplasia Arthralgia of hip, right Depression HIV (human immunodeficiency virus infection) HTN (hypertension) Family History Family history of problems with anesthesia: No Surgical History Surgical History History of lumbar fusion History of excision of pilonidal cyst Hx of left knee surgery History of tubal ligation Hx of cone biopsy of cervix History of esophagogastroduodenoscopy (EGD) History of Problems with Anesthesia: No Social History Social History Household Members: Children Household Members Other:: 2 adult sons Housing: House Are you a primary career services assistant to a significant other at home: No Do you presently have visiting nurse or other home services: No Alcohol intake: current Alcohol intake frequency: former alcohol drinker Comment: uses walker on occasion Patient Tobacco Use Status: Never used Tobacco Substance Use Type: Marijuana Substance Use Type Other:: taking suboxone-clean since 06/2023 Have you been hit, kicked, punched, or otherwise hurt by someone within the past year? 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 Allergies Allergy/AdvReac Type Severity Reaction Status Date / Time amlodipine Allergy Intermediate Swelling Verified 07/13/24 06:03 azithromycin Allergy Intermediate Rash Verified 07/13/24 06:03 rifabutin Allergy Intermediate Rash Verified 07/13/24 06:03 Home Medications ?Medication ?Instructions ?Recorded ?Confirmed ?Last Taken ?Type darunavir 800 mg tablet (Prezista) 800 mg PO QAM 03/31/23 06/23/24 07/13/24 History docusate sodium 100 mg capsule 100 mg PO BID PRN Constipation 11/05/23 06/17/24 Unknown History (Colace) elviteg 150 mg-cob 150 mg-emtricit 1 tab PO QAM 11/05/23 06/23/24 07/13/24 History 200 mg-tenofo alafenam 10 mg tablet (Genvoya) ferrous sulfate 325 mg (65 mg 325 mg PO QAM 11/05/23 06/23/24 05/25/24 History iron) tablet hydroxyzine pamoate 25 mg capsule 25 mg PO QID PRN anxiety 11/05/23 06/17/24 Unknown History pantoprazole 40 mg tablet,delayed 40 mg PO BID@0630,1600 Heart Burn 11/05/23 06/17/24 Unknown History release polyethylene glycol 3350 17 gram 17 g PO DAILY PRN Constipation 11/05/23 06/17/24 Unknown History oral powder packet acetaminophen 650 mg 650 mg PO TID 05/26/24 06/17/24 05/25/24 History tablet,extended release buprenorphine 8 mg-naloxone 2 mg 1 film sublingual QID 05/26/24 06/17/24 07/12/24 History sublingual film gabapentin 800 mg tablet 800 mg PO TID 05/26/24 06/17/24 05/25/24 History hydrochlorothiazide 12.5 mg tablet 12.5 mg PO QAM 05/26/24 06/23/24 05/25/24 History duloxetine 60 mg capsule,delayed 60 mg PO QAM 06/11/24 06/23/24 Unknown History release multivitamin 1 tab PO QAM 06/23/24 06/23/24 Unknown History Exam Height,Weight and Vital Signs: Height 5 ft 6 in Weight 70.307 kg Last Vital Signs Pulse 74 06/23/24 12:06 Resp 18 06/23/24 12:06 BP 129/81 06/23/24 12:06 Pulse Ox 99 06/23/24 12:06 O2 Del Method Room Air 06/23/24 12:06 Narrative Narrative: EKG 12/2023 [id number] Ventricular Rate: 62 BPM Atrial Rate: 62 BPM P-R Interval: 186 ms QRS Duration: 100 ms Q-T Interval: 448 ms QTC Calculation(Bazett): 454 ms P [place]: 10 degrees R [place]: 58 degrees T [place]: 46 degrees Normal sinus rhythm Normal ECG When compared with ECG of 28-JUN-2021 15:49, No significant change was found Confirmed by [place] ([id number]) on 12/18/2023 5:29:22 PM Airway Mallampati Class: I TM Dist: >3cm Neck ROM: Full Loose/Missing/Broken Teeth: Yes (Broken teeth) Heart: RRR Lungs: CTAB Assessment and Plan Assessment Anesthesia Assessment: Anesthesia Plan Discussed and PAT Visit Final Anesthetic Review Family History of Problems with Anesthesia: No History of Problems with Anesthesia: No Documented by User: Bhakti Olivera MD 07/13/24 07:31 [facility] Past Medical History Medical History MRSA (methicillin resistant Staphylococcus aureus) Esophageal ulcer Back pain Elevated cholesterol Urinary incontinence Rosacea Osteoarthritis Lumbar radiculopathy Anemia Fibromyalgia EtOH dependence Cervical dysplasia Arthralgia of hip, right Depression HIV (human immunodeficiency virus infection) HTN (hypertension) Surgical History Surgical History History of lumbar fusion History of excision of pilonidal cyst Hx of left knee surgery History of tubal ligation Hx of cone biopsy of cervix History of esophagogastroduodenoscopy (EGD) Social History Social History Household Members: Children Household Members Other:: 2 adult sons Housing: House Are you a primary career services assistant to a significant other at home: No Do you presently have visiting nurse or other home services: No Alcohol intake: current Alcohol intake frequency: former alcohol drinker Comment: uses walker on occasion Patient Tobacco Use Status: Never used Tobacco Substance Use Type: Marijuana Substance Use Type Other:: taking suboxone-clean since 06/2023 Have you been hit, kicked, punched, or otherwise hurt by someone within the past year? 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 Allergies Allergy/AdvReac Type Severity Reaction Status Date / Time amlodipine Allergy Intermediate Swelling Verified 07/13/24 06:03 azithromycin Allergy Intermediate Rash Verified 07/13/24 06:03 rifabutin Allergy Intermediate Rash Verified 07/13/24 06:03 Home Medications ?Medication ?Instructions ?Recorded ?Confirmed ?Last Taken ?Type darunavir 800 mg tablet (Prezista) 800 mg PO QAM 03/31/23 06/23/24 07/13/24 History docusate sodium 100 mg capsule 100 mg PO BID PRN Constipation 11/05/23 06/17/24 Unknown History (Colace) elviteg 150 mg-cob 150 mg-emtricit 1 tab PO QAM 11/05/23 06/23/24 07/13/24 History 200 mg-tenofo alafenam 10 mg tablet (Genvoya) ferrous sulfate 325 mg (65 mg 325 mg PO QAM 11/05/23 06/23/24 05/25/24 History iron) tablet hydroxyzine pamoate 25 mg capsule 25 mg PO QID PRN anxiety 11/05/23 06/17/24 Unknown History pantoprazole 40 mg tablet,delayed 40 mg PO BID@0630,1600 Heart Burn 11/05/23 06/17/24 Unknown History release polyethylene glycol 3350 17 gram 17 g PO DAILY PRN Constipation 11/05/23 06/17/24 Unknown History oral powder packet acetaminophen 650 mg 650 mg PO TID 05/26/24 06/17/24 05/25/24 History tablet,extended release buprenorphine 8 mg-naloxone 2 mg 1 film sublingual QID 05/26/24 06/17/24 07/12/24 History sublingual film gabapentin 800 mg tablet 800 mg PO TID 05/26/24 06/17/24 05/25/24 History hydrochlorothiazide 12.5 mg tablet 12.5 mg PO QAM 05/26/24 06/23/24 05/25/24 History duloxetine 60 mg capsule,delayed 60 mg PO QAM 06/11/24 06/23/24 Unknown History release multivitamin 1 tab PO QAM 06/23/24 06/23/24 Unknown History Exam Airway Mallampati Class: II TM Dist: >3cm Assessment and Plan Assessment Anesthesia Assessment: Chart Reviewed Final Anesthetic Review NPO: Yes ASA Class: III Final Preanesthetic Review: No Changes in Pt Med Stat, Meds/Allgs Chart Reviewed, Consent Obtained/Reviewed and Anes Risks/Benef Reviewed Patient Risk: Intermediate Procedure Risk: Intermediate Anesthetic Plan Anesthetic Plan: GA Disposition: Standard PACU
[2024-06-23 14:24] LABS: MRSA Nasal PCR NEGATIVE (Negative); SA Nasal PCR NEGATIVE (Negative)
[2024-07-13] VITALS (16 sets, daily range): BP systolic 111–169; BP diastolic 67–113; PULSE 75–113; RESP 16–20; TEMP 36.2–37; O2SAT 96–100; BMI 25.4
--- NOTE | ~2024-07-13 | XR_ITS ---
EXAMINATION: XR PELVIS CLINICAL INFORMATION: RT YELITZA COMPARISON: 07/08/2024. TECHNIQUE: AP view of the pelvis. FINDINGS: There has been a total right hip arthroplasty. Femoral and acetabular components are intact, anatomically aligned, well seated. No complication evident. There is subcutaneous gas and lateral skin carly. The left hip demonstrates moderate to severe osteoarthrosis, unchanged. Partially imaged lumbar fusion hardware. Normal SI joints. XR/XR pelvis 1-2V IMPRESSION: Post right total hip arthroplasty without complication. Electronically signed by: Christian Torres MD 07/13/2024 10:38 AM SUSAN DASH
[2024-07-13] MEDS: Lactated Ringers 1,000 ML 100 ML IVCONT ×3 (06:25→23:24)
[2024-07-13] MEDS: oxyCODONE HCl ER 10 MG TAB.ER.12H PO ×2 (06:42→20:28)
[2024-07-13 06:50] LABS: Hematocrit 38.6 % (37.0-47.0); Hemoglobin 12.1 g/dl (12.0-16.0); Mean Corpuscular HGB Conc 31.3 g/dl (31.0-35.0); Mean Corpuscular Hemoglobin 27.1 pg (27.0-33.0); Mean Corpuscular Volume 86.5 fL (80.0-98.0); Mean Platelet Volume 9.2 fL (9.4-12.3); Platelet Count 266 X10*3/uL (160-400); Red Blood Count 4.46 X10*6/uL (4.20-5.50)
[2024-07-13 06:59] LABS: Anion Gap 12 (12-20); Blood Urea Nitrogen 21 mg/dL (9-16); Carbon Dioxide 25 mmol/L (22-29); Chloride 108 mmol/L (96-108); Creatinine Clr Calc Pharmacy 101.6; Estimated Glomerular Filt Rate > 60; Glucose Fasting 87 mg/dL (60-99); Potassium 4.1 mmol/L (3.3-5.1); Sodium 141 mmol/L (135-145)
[2024-07-13] MEDS: vancomycin HCL 1,000 MG in 0.9 % Sodium Chloride 250 ML 270 MG IV ×2 (07:06→18:00)
--- NOTE | 2024-07-13 07:29 | MHC.SHP ---
Pre-Procedural Eval Section A - 24 Hr Update-Section A only Date of Service: 07/13/24 The patient is an INPATIENT: No Changes since office visit: No Cold of Flu in the past 2 weeks, No New Medical Problems, No Changes in Medication and No Patient answered all questions The patient has been examined within 24 hours of the surgical procedure. The History & Physical has been completed within 30 days and I have reviewed it.: Yes Section B - Complete if H&P > 30 days Chief Complaint: Unilateral primary osteoarthritis, right hip Allergies: Allergies Allergy/AdvReac Type Severity Reaction Status Date / Time amlodipine Allergy Intermediate Swelling Verified 07/13/24 06:03 azithromycin Allergy Intermediate Rash Verified 07/13/24 06:03 rifabutin Allergy Intermediate Rash Verified 07/13/24 06:03 Plan I have reviewed the history and physical and performed a pertinent physical examination on my patient. No changes have occurred unless specified. Time Spent With Patient Time: Total time managing care of this patient today ____ minutes.
[2024-07-13] MEDS: HYDROmorphone HCl 0.5 MG/0.5 ML SYRINGE IVPUSH ×6 (09:46→19:21)
--- NOTE | 2024-07-13 09:52 | PM.OP ---
Brief Operative Note Date of Service: 07/13/24 Pre-op diagnosis: Right Hip OA Post-op diagnosis: same Procedure: Right YELITZA Implants: Consuelo Trident2 50; Accolade2 #4 132deg +0 36 Surgeon: Otis Casey MD Anesthesia: GETA and local Was an Enterprise Infrastructure Architect used for this Procedure?: No Estimated blood loss (mL): 200 Pathology: other Condition: stable Disposition: PACU
[2024-07-13] MEDS: LORazepam 2 MG/ML VIAL 1 MG IVPUSH (10:39)
[2024-07-13] MEDS: Acetaminophen 1,000 MG/100 ML PIGGYBACK 400 MG IV ×2 (14:17→19:21)
--- NOTE | 2024-07-13 15:14 | P.DS_ITS ---
DS: Providers Provider Date of Service: 07/14/24 Date of discharge: 07/14/24 Primary care physician: Shala Shields MD Consults: 07/13/24 11:44 Consult to Hospitalist Routine Comment: Consulting Provider: [facility] [place] Hospitalists Reason For Exam: h/o ETOH abuse, HTn, HIV DS: Summary Hospital Course Hospital Course: The patient underwent a successful right total hip arthroplasty, they were transferred to PACU and then to the floor to recover. During their stay, their vitals were stable, afebrile at 98.9. Labs were unremarkable, H/H 9.2/27.8. POD 1 they were started on Aspirin 325mg po bid for DVT ppx, they also received Physical Therapy services twice a day. Prior to discharge, their dressing was clean dry and intact, and the plan was to be discharged home with VNA services. Time Attestation Discharge Coordination Time (in mins): 30 Quality: Safe Use of Opioids Does Pt have an Active Cancer Diagnosis on the Problem List?: No Quality: Stroke Does the patient have a stroke diagnosis?: No Physical Exam Vital Signs: Vital Signs: Last Vital Signs Temp 97.5 F 07/13/24 11:44 Pulse 78 07/13/24 11:44 Resp 16 07/13/24 11:44 BP 167/98 H 07/13/24 11:44 Pulse Ox 98 07/13/24 11:44 O2 Del Method Room Air 07/13/24 11:44 O2 Flow Rate 6 07/13/24 09:46 BMI result Body Mass Index 25.4 Const: General: cooperative, healthy appearing and no acute distress Resp: Effort & Inspection: normal respiratory effort and able to speak in complete sentences Cardio: Rate: regular rate Peripheral pulses: Peripheral pulses 2+ throughout GI: Palpation (GI): Soft to palpation Skin: Lesions: no lesions Rashes: no rashes Extrem: Other: right hip dressing is c/d/i. Able to dorsi/plantar flex. Calf is supple and nontender. Sensation intact. Pedal pulse intact. DS: Data Data Completed and Pending Completed studies during hospitalization [Text1]: Procedures Drainage of Buttock Skin, External Approach (05/26/24) Excision of Lumbar Vertebral Disc, Open Approach (11/18/23) Fusion of Lumbar Vertebral Joint with Interbody Fusion Device, Anterior Approach, Anterior Column, Open Approach (11/18/23) Insertion of Interspinous Process Spinal Stabilization Device into Lumbar Vertebral Joint, Open Approach (11/18/23) Monitoring of Peripheral Nervous Electrical Activity, Intraoperative, External Approach (11/18/23) Pending studies at discharge: Pending at discharge 07/13/24 09:13 Surgical [PTH] Routine Labs on day of discharge: Laboratory Results - last 24 hr 07/13/24 06:26 WBC 5.0 RBC 4.46 Hgb 12.1 Hct 38.6 MCV 86.5 MCH 27.1 MCHC 31.3 RDW 15.0 Plt Count 266 MPV 9.2 L Absolute Nucleated RBC 0.000 Nucleated RBC % (auto) 0.0 Sodium 141 Potassium 4.1 Chloride 108 Carbon Dioxide 25 Anion Gap 12 BUN 21 H Creatinine 0.70 Estim Creat Clear Calc 101.6 Estimated GFR > 60 Fasting Glucose 87 Calcium 9.0 Discharge Plan Discharge Patient Disposition: Home Health Service Referrals: Arina Anderson PA-C [Physician Blacksmith Hammer Operator] - 07/29/24 1:00 pm Discharge Medications: New aspirin 325 mg Tablet 325 mg PO BID 42 Days Qty: 84 0RF celecoxib 200 mg Capsule 200 mg PO BID 30 Days Qty: 60 0RF oxycodone 10 mg tablet 10 mg PO Q4H PRN (Reason: Pain, Moderate(Pain Scale 4-6)) 7 Days Qty: 42 0RF Rx Instructions: Partial Fill upon patient request. docusate sodium 100 mg Capsule 100 mg PO BID 30 Days Qty: 60 0RF Continued (DME) walker Misc See Rx Instructions .MEDSUPPLY Qty: 1 0RF Rx Instructions: Folding Front wheeled walker DURATION 99 DAYS (DME) cane Device See Rx Instructions .Route Qty: 1 0RF Rx Instructions: As directed ferrous sulfate 325 mg (65 mg iron) Tablet 325 mg PO QAM polyethylene glycol 3350 17 gram Powder In Packet 17 g PO DAILY PRN (Reason: Constipation) pantoprazole 40 mg tablet,delayed release (DR/EC) 40 mg PO BID@0630,1600 hydroxyzine pamoate 25 mg capsule 25 mg PO QID PRN (Reason: anxiety) Genvoya [phone] mg tablet 1 tab PO QAM Patient Comments: Patient takes darunavir and genvoya together alone, separates other medications admin times by 2 hours duloxetine 60 mg capsule,delayed release(DR/EC) 60 mg PO QAM multivitamin Tablet 1 tab PO QAM gabapentin 800 mg tablet 800 mg PO TID buprenorphine-naloxone 8-2 mg film 1 film sublingual QID darunavir [Prezista] 800 mg tablet 800 mg PO QAM Patient Comments: Patient takes darunavir and genvoya together alone, separates other medications admin times by 2 hours hydrochlorothiazide 12.5 mg tablet 12.5 mg PO QAM Discontinued docusate sodium [Colace] 100 mg Capsule 100 mg PO BID PRN (Reason: Constipation) acetaminophen 650 mg tablet extended release 650 mg PO TID PRN (Reason: Pain) Discharge Orders: Discharge Order (Routine); Ordered 07/14/24 Ordered By: Ludy Patterson Diet: Advance to usual diet Activity on Discharge: Use cane or walker Activity Restrictions/Additional Instructions: Physical Therapy for total hip arthroplasty: posterior precautions, gait training, ROM, strength Limit stair climbing No showering, no tub bath-keep dressing clean, dry and intact No driving x6 weeks Continue ASA tabs once a day x 6 weeks Follow up with [facility] [place] Orthopedics in 2 weeks Print Language: Irish
--- NOTE | 2024-07-13 15:16 | P.F2F_ITS ---
Service Date Service Date: 07/13/24 Encounter Date of encounter: 07/14/24 Reasons for Services Signs and symptoms assessed: s/p rtha Pt. is considered homebound due to recent surgery. Unable to drive, poor balance, poor gait mechanics. Reason for physical therapy: home safety and mobility, therapeutic exercises, restore joint function, gait/transfer training and ADL training Reason for occupational therapy: home safety and mobility, therapeutic exercises, restore joint function, gait/transfer training and ADL training Homebound: Leaving the home is medically contraindicated at this time without the asist of a device and/or another person due th the listed conditions above and below. Reason homebound: unsteady gait / fall risk, leg weakness, pain with ambulation, poor balance / fall risk and unable to drive Certification: Based on the above findings, I certify that this patient is confined to the home and needs intermittent longterm care, physical therapy and/or speech therapy, or continues to need occupational therapy. The patient is under my care, and I have initiated the establishment of the plan of care. The patient will be followed by a physician who will periodically review the plan of care. Time Spent With Patient Time: Total time managing care of this patient today ____ minutes.
--- NOTE | 2024-07-13 15:32 | PC.NURSE ---
Addendum entered by Anisa Freeman RN 07/13/24 17:48: pt ambulated to bathroom with minimal assistance. Pain tolerable with meds . Original Note: pt oob to commode , stand and pivot , pt tolerated activity well .
--- NOTE | 2024-07-13 15:40 | PHA.MEDREC ---
Addendum entered by Brendan Munoz, [facility] 07/13/24 15:59: med rec reviewed Original Note: Pharmacy Consult ? Medication Reconciliation Pharmacy has completed the medication reconciliation. Spoke with patient to confirm medications, rx and otc. She reports she takes darunavir and genvoya together alone, separates other medications admin times by 2 hours.
[2024-07-13] MEDS: Buprenorphine/Naloxone 8/2 mg FILM 1 FILM SUBLINGUAL ×2 (16:04→20:30)
[2024-07-13] MEDS: Omeprazole 20 MG CAPSULE.DR PO (16:04)
[2024-07-13] MEDS: Gabapentin 400 MG CAPSULE 800 MG PO ×2 (16:04→20:28)
[2024-07-13] MEDS: oxyCODONE HCl Immed Release 5 MG TABLET 10 MG PO ×2 (16:40→20:38)
[2024-07-13] MEDS: 0.9 % Sodium Chloride Flush 3 ML SYRINGE IVFLUSH (19:22)
--- NOTE | 2024-07-13 20:08 | HO.PM.IMCN ---
History of Present Illness Data of Consult Service Date: 07/13/24 Requesting physician: Otis Casey Primary Care Provider: Shala Shields MD HPI Reason for consult: medical consult Pt is a 44 yo female with a past medical hx significant for HIV, HTN, fibromyalgia, hx pilonidal abscess, now s/p R THR for osteoarthritis, consult placed for medical management. No acute medical concerns. Denies any shortness of breath, chest pain, nausea, vomiting, abdominal pain. She has been able to urinate but has not yet been able to pass gas or have a bowel movement. She denies any current alcohol use or drug use. Review of Systems Constitutional: Constitutional: Denies body ache(s), Denies chills, Denies fatigue, Denies fever(s) and Denies headache(s) Eyes: Eyes: Denies change in vision and Denies photophobia ENT: Denies headache(s), Denies nasal congestion, Denies nasal discharge and Denies sore throat Cardiovascular: Cardiovascular: Denies chest pain, Denies syncope, Denies rapid heart rate, Denies leg edema and Denies dyspnea Respiratory: Respiratory: Denies chest congestion, Denies cough, Denies dyspnea and Denies wheezing Gastrointestinal: Gastrointestinal: Denies abdominal pain, Denies diarrhea, Denies nausea and Denies vomiting Genitourinary: Genitourinary: Denies hematuria, Denies dysuria and Denies urinary urgency Musculoskeletal: Musculoskeletal: Denies back pain and Denies myalgias Integumentary/Breasts: Skin/Breast: Denies rash Neurologic: Denies confusion, Denies syncope and Denies headache(s) Psychiatric: Psychiatric: Denies confusion Endocrine: Endocrine: Denies fatigue Hematologic/Lymphatic: Hematologic/Lymphatic: Denies easy bleeding and Denies easy bruising Allergic/Immunologic: Allergic/Immunologic: Denies wheezing PMFSH Medical History MRSA (methicillin resistant Staphylococcus aureus) Esophageal ulcer Back pain Elevated cholesterol Urinary incontinence Rosacea Osteoarthritis Lumbar radiculopathy Anemia Fibromyalgia EtOH dependence Cervical dysplasia Arthralgia of hip, right Depression HIV (human immunodeficiency virus infection) HTN (hypertension) Functional capacity: independent ambulation Surgical History History of lumbar fusion History of excision of pilonidal cyst Hx of left knee surgery History of tubal ligation Hx of cone biopsy of cervix History of esophagogastroduodenoscopy (EGD) Social History Household Members: Family Household Members Other:: 2 adult sons Housing: House Are you a primary rn intensive care unit to a significant other at home: No Do you presently have visiting nurse or other home services: No Alcohol intake: current Alcohol intake frequency: former alcohol drinker Comment: uses walker on occasion Patient Tobacco Use Status: Never used Tobacco Substance Use Type: Marijuana service: No Current occupational status: employed 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 Narrative: no smoking, etoh or drug use Meds Allergies Allergy/AdvReac Type Severity Reaction Status Date / Time amlodipine Allergy Intermediate Swelling Verified 07/13/24 06:03 azithromycin Allergy Intermediate Rash Verified 07/13/24 06:03 rifabutin Allergy Intermediate Rash Verified 07/13/24 06:03 Active Medications: Current Medications Aspirin (Aspirin 325 Mg Tablet) 325 mg PO BID [facility] Buprenorphine/Naloxone (Buprenorphine/Naloxone 8/2 Mg Film) 1 film SUBLINGUAL QID [facility] Last Admin: 07/13/24 16:04 Dose: 1 film Celecoxib (Celecoxib 200 Mg Capsule) 200 mg PO BID [facility] Darunavir (Darunavir Ethanolate 800 Mg Tablet) 800 mg PO DAILY [facility] Docusate Sodium (Docusate Sodium 100 Mg Capsule) 100 mg PO BID [facility] Duloxetine HCl (Duloxetine Hcl 60 Mg Capsule.) 60 mg PO DAILY [facility] Elvitegravir/Cobicis/Emtricit/Tenof (Elviteg/Anika/Emtric/Tenofo Ala 150/150/200/10 Tablet) 1 tab PO DAILY [facility] Ferrous Sulfate (Ferrous Sulfate 324 Mg Tablet.) 324 mg PO DAILY [facility] Gabapentin (Gabapentin 400 Mg Capsule) 800 mg PO TID [facility] Last Admin: 07/13/24 16:04 Dose: 800 mg Hydromorphone HCl (Hydromorphone Hcl 0.5 Mg/0.5 Ml Syringe) 0.5 mg IVPUSH Q4H PRN; Protocol PRN Reason: Pain, Severe (Pain Scale 7-10) Last Admin: 07/13/24 19:21 Dose: 0.5 mg Hydroxyzine HCl (Hydroxyzine Hcl 25 Mg Tablet) 25 mg PO QID PRN PRN Reason: anxiety Lactated Ringer's (Lr) 1,000 mls @ 100 mls/hr IVCONT .Q10H [facility] Stop: 07/14/24 09:38 Last Admin: 07/13/24 12:26 Dose: 100 mls/hr Acetaminophen (Ofirmev) 1,000 mg in 100 mls @ 400 mls/hr IV Q6H [facility] Stop: 07/14/24 08:14 Last Admin: 07/13/24 19:21 Dose: 400 mls/hr Ketorolac Tromethamine (Ketorolac Tromethamine 15 Mg/Ml Vial) 15 mg IVPUSH Q6H PRN PRN Reason: Pain, Mild (Pain Scale 1-3) Omeprazole (Omeprazole 20 Mg Capsule.Dr) 20 mg PO BID@0630,1600 [facility] Last Admin: 07/13/24 16:04 Dose: 20 mg Ondansetron HCl (Ondansetron Hcl 4 Mg/2 Ml Vial) 4 mg IVPUSH Q8H PRN PRN Reason: Nausea and Vomiting Oxycodone HCl (Oxycodone Hcl Immed Release 5 Mg Tablet) 10 mg PO Q4H PRN PRN Reason: Pain, Moderate(Pain Scale 4-6) Last Admin: 07/13/24 16:40 Dose: 10 mg Oxycodone HCl (Oxycodone Hcl Er 10 Mg Tab.Er.12h) 10 mg PO BID [facility] Polyethylene Glycol (Polyethylene Glycol 3350 17 Gm Powd.Pack) 17 gm PO DAILY PRN PRN Reason: Constipation Sodium Chloride (0.9 % Sodium Chloride Flush 3 Ml Syringe) 3 ml IVFLUSH QSHIFT [facility] Last Admin: 07/13/24 19:22 Dose: 3 ml Home Medications ?Medication ?Instructions ?Recorded ?Confirmed ?Last Taken ?Type darunavir 800 mg tablet (Prezista) 800 mg PO [facility] 03/31/23 06/23/24 07/13/24 History docusate sodium 100 mg capsule 100 mg PO BID PRN Constipation 11/05/23 06/17/24 Unknown History (Colace) elviteg 150 mg-cob 150 mg-emtricit 1 tab PO QAM 11/05/23 06/23/24 07/13/24 History 200 mg-tenofo alafenam 10 mg tablet (Genvoya) ferrous sulfate 325 mg (65 mg 325 mg PO QAM 11/05/23 06/23/24 05/25/24 History iron) tablet hydroxyzine pamoate 25 mg capsule 25 mg PO QID PRN anxiety 11/05/23 06/17/24 Unknown History pantoprazole 40 mg tablet,delayed 40 mg PO BID@0630,1600 Heart Burn 11/05/23 06/17/24 Unknown History release polyethylene glycol 3350 17 gram 17 g PO DAILY PRN Constipation 11/05/23 06/17/24 Unknown History oral powder packet acetaminophen 650 mg 650 mg PO TID PRN Pain 05/26/24 06/17/24 05/25/24 History tablet,extended release buprenorphine 8 mg-naloxone 2 mg 1 film sublingual QID 05/26/24 06/17/24 07/12/24 History sublingual film gabapentin 800 mg tablet 800 mg PO TID 05/26/24 06/17/24 05/25/24 History hydrochlorothiazide 12.5 mg tablet 12.5 mg PO QAM 05/26/24 06/23/24 05/25/24 History duloxetine 60 mg capsule,delayed 60 mg PO QAM 06/11/24 06/23/24 Unknown History release multivitamin 1 tab PO QAM 06/23/24 06/23/24 Unknown History Physical Exam Vital Signs and Narrative: Vital Signs: Last Vital Signs Temp 97.2 F 07/13/24 19:17 Pulse 75 07/13/24 19:17 Resp 18 07/13/24 19:17 BP 117/73 07/13/24 19:17 Pulse Ox 97 07/13/24 19:17 O2 Del Method Room Air 07/13/24 19:17 O2 Flow Rate 6 07/13/24 09:46 BMI result Body Mass Index 25.4 General: AOx3, no acute distress Resp: CTA bilaterally CVS: S1, S2, RRR GI: +BS, NT, no distention Skin: Warm, dry Neuro: Cranial nerves II-XII grossly intact bilaterally. Motor grossly intact bilaterally Extremities: penumoboots in place and on currently. pain controlled. sensation intact bilateral lower extremitites. Psych: Appropriate affect Const: General: No confusion Orientation/consciousness: No confusion Eyes: Direct Ophthalmoscopy: No photophobia Neuro: General: No confusion Results Labs 07/13/24 06:26 07/13/24 06:26 Labs: Laboratory Results - last 24 hr 07/13/24 06:26 MCV 86.5 MCH 27.1 MCHC 31.3 RDW 15.0 Plt Count 266 MPV 9.2 L Absolute Nucleated RBC 0.000 Nucleated RBC % (auto) 0.0 Anion Gap 12 Estim Creat Clear Calc 101.6 Estimated GFR > 60 Fasting Glucose 87 Calcium 9.0 Imaging Radiologist's Impressions: Impressions Pelvis X-Ray 07/13/24 09:40 IMPRESSION: Post right total hip arthroplasty without complication. Electronically signed by: Christian Torres MD 07/13/2024 10:38 AM EST Assessment and Plan (1) S/P total right hip arthroplasty: Status: Acute Plan Pt is a 44 yo female with a past medical hx significant for HIV, HTN, fibromyalgia, hx pilonidal abscess, FUNMI, now s/p R THR for osteoarthritis, consult placed for medical management. No acute medical concerns. Denies any recent etoh or drug use, on suboxone. s/p R THR - plan per surgery - pain controlled HTN - continue HCTZ HIV - continue Genvoya and darunavir hx FUNMI - continue suboxone Thank you for allowing me to participate in the pt's care. Signing off for now. Please contact the medical team if any questions or concerns.
[2024-07-13] MEDS: Celecoxib 200 MG CAPSULE PO (20:27)
[2024-07-13] MEDS: Docusate Sodium 100 MG CAPSULE PO (20:27)
[2024-07-14] MEDS: Acetaminophen 1,000 MG/100 ML PIGGYBACK 400 MG IV ×2 (02:25→08:21)
[2024-07-14 03:27] VITALS: BP 108/64; PULSE 71; RESP 18; TEMP 36.4; O2SAT 96
[2024-07-14] MEDS: HYDROmorphone HCl 0.5 MG/0.5 ML SYRINGE IVPUSH ×2 (04:06→11:51)
[2024-07-14] MEDS: Omeprazole 20 MG CAPSULE.DR PO (04:06)
[2024-07-14] MEDS: oxyCODONE HCl Immed Release 5 MG TABLET 10 MG PO ×2 (04:52→11:13)
[2024-07-14 05:44] LABS: MANUAL DIFF FLAG NO
[2024-07-14 05:51] LABS: Basophils Percent Auto 0.1 % (0-2); Eosinophils Percent Auto 0.3 % (0-4); Hematocrit 27.8 % (37.0-47.0); Hemoglobin 9.2 g/dl (12.0-16.0); Imm Gran Abs Auto 0.05 X10*3/uL (0.00-0.03); Imm Gran Pct Auto 0.5 % (0.0-0.4); Lymphocytes Absolute Auto 0.9 X10*3/uL (1.2-4.9); Lymphocytes Percent Auto 8.4 % (20-40); Mean Corpuscular HGB Conc 33.1 g/dl (31.0-35.0); Mean Corpuscular Hemoglobin 27.7 pg (27.0-33.0); Mean Corpuscular Volume 83.7 fL (80.0-98.0); Mean Platelet Volume 9.1 fL (9.4-12.3); Monocytes Absolute Auto 0.4 X10*3/uL (0.1-1.2); Monocytes Percent Auto 4.1 % (2-11); Neutrophils Absolute Auto 8.9 x10*3/uL (2.0-8.3); Neutrophils Percent Auto 86.6 % (45-73); Platelet Count 229 X10*3/uL (160-400); Red Blood Count 3.32 X10*6/uL (4.20-5.50); White Blood Count 10.2 X10*3/uL (4.8-10.8)
[2024-07-14 06:05] LABS: Anion Gap 10 (12-20); Blood Urea Nitrogen 15 mg/dL (9-16); Calcium 8.4 mg/dL (8.4-10.2); Carbon Dioxide 26 mmol/L (22-29); Chloride 107 mmol/L (96-108); Creatinine Clr Calc Pharmacy 112.9; Estimated Glomerular Filt Rate > 60; Glucose Fasting 134 mg/dL (60-99); Potassium 4.7 mmol/L (3.3-5.1); Sodium 138 mmol/L (135-145)
[2024-07-14] MEDS: Darunavir Ethanolate 800 MG TABLET PO (06:09)
[2024-07-14] MEDS: Elviteg/Cobi/Emtric/Tenofo Ala 150/150/200/10 TABLET 1 TAB PO (06:11)
--- NOTE | 2024-07-14 07:38 | PM.PNORT ---
Subjective Subjective Date of Service: 07/14/24 Interval history: POD1 s/p RTHA Patient is resting in bed comfortably No overnight events Pain is managed No additional complaints Physical Exam Vital Signs: Vital Signs: Last Vital Signs Temp 97.5 F 07/14/24 03:27 Pulse 71 07/14/24 03:27 Resp 18 07/14/24 03:27 BP 108/64 07/14/24 03:27 Pulse Ox 96 07/14/24 03:27 O2 Del Method Room Air 07/14/24 03:27 O2 Flow Rate 6 07/13/24 09:46 BMI result Body Mass Index 25.4 Const: General: cooperative, healthy appearing and no acute distress Resp: Effort & Inspection: normal respiratory effort and able to speak in complete sentences Cardio: Rate: regular rate Peripheral pulses: Peripheral pulses 2+ throughout GI: Palpation (GI): Soft to palpation Skin: Lesions: no lesions Rashes: no rashes Extrem: Other: right hip dressing is c/d/i. Able to dorsi/plantar flex. Calf is supple and nontender. Sensation intact. Pedal pulse intact. Procedures Date of Service Date of Service: 07/14/24 Progress Note: A&P Assessment and plan (1) S/P total right hip arthroplasty: Status: Acute Plan Continue pain mgmnt Begin ASA for dvt ppx begin PT/OT for RTHA - WBAT Dispo planning-Pending PT eval, pain mgmnt Time Spent With Patient Time: Total time managing care of this patient today ____ minutes. Quality Stroke Does the patient have a stroke diagnosis?: No VTE Prior VTE?: No VTE Risk Level:: Medical - moderate - high VTE Device Contraindication: N/A - Device Ordered VTE Drug Contraindication: N/A - Med Ordered
[2024-07-14 08:00] VITALS: BP 110/62; PULSE 74; RESP 18; TEMP 36.4; O2SAT 98
--- NOTE | 2024-07-14 08:22 | HO.POSTANES ---
Post Anesthesia Evaluation Post Anesthesia Evaluation Date of Service: 07/14/24 Vital Signs: Vital Signs Temp Pulse Resp BP Pulse Ox O2 Del Method 07/14/24 08:00 97.5 F 74 18 110/62 98 Room Air 07/14/24 03:27 97.5 F 71 18 108/64 96 Room Air 07/13/24 23:40 97.7 F 75 17 111/67 96 Room Air Anesthesia: General Endotracheal-GETA Mental Status: Awake Pain Control: Satisfactory Nausea/Vomiting: None Hydration: Adequate Anesthesia-Related Issues: No Anes. Related Issues
[2024-07-14] MEDS: Gabapentin 400 MG CAPSULE 800 MG PO (09:14)
[2024-07-14] MEDS: Celecoxib 200 MG CAPSULE PO (09:14)
[2024-07-14] MEDS: oxyCODONE HCl ER 10 MG TAB.ER.12H PO (09:14)
[2024-07-14] MEDS: Docusate Sodium 100 MG CAPSULE PO (09:14)
[2024-07-14] MEDS: Aspirin 325 MG TABLET PO (09:14)
[2024-07-14] MEDS: Ferrous Sulfate 324 MG TABLET.DR PO (09:15)
[2024-07-14] MEDS: DULoxetine HCl 60 MG CAPSULE.DR PO (09:15)
[2024-07-14] MEDS: Buprenorphine/Naloxone 8/2 mg FILM 1 FILM SUBLINGUAL ×2 (09:15→13:36)
--- NOTE | 2024-07-14 09:51 | MHC.CM.PN ---
S/P R YELITZA lives w adult children. Independent with all functional mobility. A walker will be obtained for home. A new HCP has been documented. Ortho Navigator sent [facility] referrals. [facility] is patients 1st choice. DP home with [facility], private transport.
--- NOTE | 2024-07-14 11:30 | W.PM.OPN ---
Operative Note Operative Note Date of Service: 07/13/24 Narrative: Date of Service: 07/13/24 Pre-op diagnosis: Right Hip OA Post-op diagnosis: same Procedure: Right YELITZA Implants: [place] Trident2 50; Accolade2 #4 132deg +0 36 Surgeon: Otis Casey MD Anesthesia: GETA and local Was an Talent Development Coordinator used for this Procedure?: No Estimated blood loss (mL): 200 Pathology: other Condition: stable Disposition: PACU Procedure in detail: Patient was brought into the operating room and placed in the right lateral decubitus position. All bony prominences were well padded and the limb was prepped and draped in standard sterile fashion. A time-out was called to identify proper site procedure proper surgeon IV antibiotics and 1 g of tranexamic acid were administered. I began by making a curvilinear incision over the posterolateral aspect of the greater trochanter. Dissection was taken down to the tensor fascia which was incised in line with the incision and a Charnley retractor was placed. Cautery was used to maintain hemostasis. The hip was internally rotated and the external rotators were identified. The vessels were cauterized and a full-thickness capsular/external rotator layer was developed starting just proximal to the piriformis. This layer was tagged and a dull Hohmann retractor was placed underneath the neck in the hip was dislocated. A neck cut was made 1 cm proximal to the lesser trochanter and the head and neck were removed and measured 46-48mm on the back table. The head was eburnated. I then removed the labrum and cauterized the fovea. I started with a 44 reamer and medialized to the inner table. I sequentially reamed up to a size 50 and impacted a 50mm cup at 45 degrees of inclination and 25 degrees of version. I then placed a liner and turned my attention to the femur. I identified the piriformis insertion and used this as a starting point for my xenia cutter. The medius tendon was protected with a Hibs retractor. A Charnley awl was inserted in the canal and a curved curette used to remove the lateral bone. I irrigated copiously. I then sequentially broached in the patient's natural version to a size 4 and placed my trial implants. I used a #4/132/+0 based on my pre-operative template. I removed all instrumentation and copiously irrigated. I placed my final femoral implant and again took the hip through range of motion and was satisfied with the stability and length. The final +0implant was impacted in place and the hip reduced. I then irrigated copiously and placed 1 g of local tranexamic acid. I performed a capsular closure with 2.0 fiberwire, Srinivas's fascia with 0 Vicryl, subcuticular with 2-0 Vicryl and the skin with caryl. Patient was placed into a sterile dressing. Patient was extubated brought to the recovery room in stable condition. There were no known complications.
[2024-07-14 11:47] VITALS: BP 110/55; PULSE 86; RESP 16; TEMP 37.2; O2SAT 98
== END 2024-07-14 13:48 | disposition home health service (06) ==
LOC: HO.SSS 05:51 → HO.S3 11:15
PROVIDERS: Nurse Practitioner; Physician Assistant; PCP Internal Medicine; Visit Provider Orthopaedic Surgery
PROC: (CPT 27130; principal; 2024-07-13 07:30)
DX: M16.11 Unilateral primary osteoarthritis, right hip (principal); B20 Human immunodeficiency virus [HIV] disease; Z86.14 Personal history of Methicillin resistant Staphylococcus aureus infection; E78.00 Pure hypercholesterolemia, unspecified; D64.9 Anemia, unspecified; I10 Essential (primary) hypertension; L71.9 Rosacea, unspecified; M79.7 Fibromyalgia; F32.A Depression, unspecified; M54.16 Radiculopathy, lumbar region; R32 Unspecified urinary incontinence; Z88.1 Allergy status to other antibiotic agents; Z88.8 Allergy status to other drugs, medicaments and biological substances; F10.21 Alcohol dependence, in remission; F11.20 Opioid dependence, uncomplicated; Z98.1 Arthrodesis status; Z98.890 Other specified postprocedural states
CPT/HCPCS: 27130; 36415; 72170; 80048; 85025; 85027; 86850; 86900; 86901; 87640; 87641; 88304; 88311; 97161; 97165; C1776; J0131; J1100; J1171; J1885; J2003; J2060; J2405; J2704; J2795; J3010; J3370; J7120

== ENCOUNTER → 2024-07-13 05:50 | Outpatient (BNV) | payer OTHER, SELFPAY | PROVIDERS: PCP Internal Medicine; Visit Provider Orthopaedic Surgery | DX: M16.11 Unilateral primary osteoarthritis, right hip (principal) | CPT/HCPCS: 27130 ==

== ENCOUNTER → 2024-07-13 05:50 | Outpatient (BNV) | payer OTHER, SELFPAY | PROVIDERS: PCP Internal Medicine; Visit Provider Physician Assistant | DX: Z96.641 Presence of right artificial hip joint (principal) | CPT/HCPCS: 99222 ==

== ENCOUNTER → 2024-07-13 09:40 | Outpatient (BNV) | payer OTHER, SELFPAY | PROVIDERS: PCP Internal Medicine; Visit Provider Radiology Diagnostic Radiology | DX: Z96.641 Presence of right artificial hip joint (principal) | CPT/HCPCS: 72170 ==

== ENCOUNTER 2024-07-29 12:49 | Outpatient (AMB) | payer OTHER, SELFPAY ==
--- NOTE | 2024-07-29 13:00 | MHC.OFFVIS ---
Vital Signs 07/29/24 13:01 Height 5 ft 6 in Weight 180 lb BMI 29.0 Intake Visit Reasons: 2WK PO: R YELITZA w/NE 07/13/24 Intake Note: Megan is a 44 year old female who presents today for her first post operative appointment about 2 weeks s/p Right Total Hip Replacement 07/13/2024. Patient reports that she is doing good. She has some mild pain, she continues to take the oxycodone but she has ran out. She is not taking the Oxycodone as frequently. Allergies amlodipine Allergy (Intermediate, Verified 07/29/24 13:04) Swelling azithromycin Allergy (Intermediate, Verified 07/29/24 13:04) Rash rifabutin Allergy (Intermediate, Verified 07/29/24 13:04) Rash Medication List - Last Reconciled 07/29/24 by Arina Anderson PA-C aspirin 325 mg PO BID 42 days buprenorphine-naloxone 8-2 mg 1 film sublingual QID cane As directed celecoxib 200 mg PO BID 30 days darunavir (Prezista) 800 mg PO QAM docusate sodium 100 mg PO BID 30 days duloxetine 60 mg PO QAM ldkhing-fbp-ibddg-tenof alafen [phone] mg (Genvoya) 1 tab PO QAM ferrous sulfate 325 mg PO QAM gabapentin 800 mg PO TID hydrochlorothiazide 12.5 mg PO QAM hydroxyzine pamoate 25 mg PO QID PRN multivitamin 1 tab PO QAM oxycodone 10 mg PO Q8H PRN 7 days pantoprazole 40 mg PO BID@0630,1600 polyethylene glycol 3350 17 grams PO DAILY PRN walker Folding Front wheeled walker DURATION 99 DAYS HPI HPI 2WK PO: R YELITZA w/NE 07/13/24: Details: 44-year-old female returns to the office today status post right total hip arthroplasty with Dr. Casey on 07/13/2024. She comes in today ambulating with a walker. She is doing well working with physical therapy. She has mild discomfort however overall she feels her groin pain and limitations with walking has resolved since surgery. [facility] Medical History MRSA (methicillin resistant Staphylococcus aureus) Esophageal ulcer Back pain Elevated cholesterol Urinary incontinence Rosacea Osteoarthritis Lumbar radiculopathy Anemia Fibromyalgia EtOH dependence Cervical dysplasia Arthralgia of hip, right Depression HIV (human immunodeficiency virus infection) HTN (hypertension) Surgical History History of lumbar fusion History of excision of pilonidal cyst Hx of left knee surgery History of tubal ligation Hx of cone biopsy of cervix History of esophagogastroduodenoscopy (EGD) Social History Household Members: Family Household Members Other:: 2 adult sons Housing: House Are you a primary director of medicare to a significant other at home: No Do you presently have visiting nurse or other home services: No Alcohol intake: current Alcohol intake frequency: former alcohol drinker Comment: uses walker on occasion Patient Tobacco Use Status: Never used Tobacco Substance Use Type: Marijuana service: No Current occupational status: employed 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 No erythema. Trace swelling around the incision. She has no pain with hip range of motion. Calf supple and nontender neurovascularly intact. Assessment & Plan Assessment & Plan (1) S/P total right hip arthroplasty: Code(s): Z96.641 - Presence of right artificial hip joint Category: Surgical Plan: [place] removed today Steri-Strips applied. She will continue working with physical therapy transitioning to outpatient physical therapy and our [facility]. She will continue taking the aspirin 325 mg twice a day for another 4 weeks. No driving for another 4 weeks at which point she will return to see us back with Dr. Casey, sooner if needed. She was given a refill of oxycodone Q 8 hours Medications: Changed From oxycodone Partial Fill upon patient request. 10 mg PO Q4H PRN 42 tabs 0RF Pain, Moderate(Pain Scale 4-6) 7 days To oxycodone Partial Fill upon patient request. 10 mg PO Q8H PRN 21 tabs 0RF Pain, Moderate(Pain Scale 4-6) 7 days Coding Level of Care Code Global (33198) Diagnoses S/P total right hip arthroplasty Z96.641
[2024-07-29 13:01] VITALS: BMI 29.0
--- OUTSIDE RECORDS SUMMARY | 2024-07-29 16:09 | XMS_ITS | Clinical Summary ---
Author Organization [employer] Address [address] [facility] [address] [place] [address] Care Team Providers Care Hydrogeology Professor Name Role Phone Unavailable Primary Care Provider [...] 02/20/2023 Active elvitegravir-cob icistat-emtricit abine-tenofovir alafenamide (Genvoya) [phone] MG tablet Take 1 tablet by mouth. [...] Most Recently Relevant to Health Maintenance [facility]
== END 2024-07-29 13:12 | disposition home or self-care (01) ==
LOC: HO.HOS 12:50
PROVIDERS: PCP Internal Medicine; Visit Provider Physician Assistant
DX: Z96.641 Presence of right artificial hip joint (principal)
CPT/HCPCS: 99024

== ENCOUNTER → 2024-07-29 12:49 | Outpatient (BNVA) | payer OTHER, SELFPAY | PROVIDERS: PCP Internal Medicine; Visit Provider Physician Assistant | DX: Z47.1 Aftercare following joint replacement surgery (principal); Z96.641 Presence of right artificial hip joint; Z79.891 Long term (current) use of opiate analgesic | CPT/HCPCS: 99212 ==

== ENCOUNTER 2024-08-19 11:43 | Outpatient (REF) | payer OTHER, SELFPAY ==
--- NOTE | ~2024-08-19 | XR_ITS ---
EXAMINATION: XR HIP 2 OR MORE VIEWS RIGHT HISTORY: M25.559 - Pain in unspecified hip COMPARISON: Comparison is made with the prior examination of the pelvis dated 07/13/2024. FINDINGS: Two AP views of the pelvis and a single view of the right hip are submitted. The patient is status post right total hip arthroplasty. The orthopedic elements are in anatomic alignment. There is no radiographic evidence of loosening. There is no fracture or dislocation. There is moderate osteoarthritis of the left hip, with joint space narrowing and osteophyte formation. The patient is status post lower lumbar fusion. The soft tissues are unremarkable. XR/XR hip RT min 2V IMPRESSION: Status post right total hip arthroplasty. Electronically signed by: Calvin Galicia MD 08/20/2024 11:37 AM EDT
--- OUTSIDE RECORDS SUMMARY | 2024-08-19 13:02 | XMS_ITS | Clinical Summary ---
Author Organization [employer] Address [address] [facility] [address] [place] [address] Care Team Providers Care Windows Security Engineer Name Role Phone Unavailable Primary Care Provider [...] 02/20/2023 Active elvitegravir-cob icistat-emtricit abine-tenofovir alafenamide (Genvoya) [phone] MG tablet Take 1 tablet by mouth. [...] Most Recently Relevant to Health Maintenance Insurance [facility] STAND ADULT
== END 2024-08-19 11:44 | disposition home or self-care (01) ==
LOC: HO.HOSX 11:43
PROVIDERS: Visit Provider Orthopaedic Surgery
DX: M25.559 Pain in unspecified hip (principal); Z96.641 Presence of right artificial hip joint; M16.12 Unilateral primary osteoarthritis, left hip; Z98.1 Arthrodesis status
CPT/HCPCS: 73502; 99212

== ENCOUNTER 2024-08-19 12:54 | Outpatient (AMB) | payer OTHER, SELFPAY ==
--- NOTE | 2024-08-19 13:04 | MHC.OFFVIS ---
Vital Signs 08/19/24 13:05 Height 5 ft 6 in Weight 180 lb BMI 29.0 Intake Visit Reasons: 6WK PO: R YELITZA w/NE 07/13/24 Intake Note: Megan is a 44 year old female who presents today for a post operative appointment about 6 weeks s/p Right YELITZA 07/13/24. Patient reports that she is doing well, she is taking tylenol PRN s/p PT. Allergies amlodipine Allergy (Intermediate, Verified 08/19/24 13:05) Swelling azithromycin Allergy (Intermediate, Verified 08/19/24 13:05) Rash rifabutin Allergy (Intermediate, Verified 08/19/24 13:05) Rash HPI HPI 6WK PO: R YELITZA w/NE 07/13/24: Details: Megan is a 44 year old female who presents today for a post operative appointment about 6 weeks s/p Right YELITZA 07/13/24. Patient reports that she is doing well, she is taking tylenol PRN s/p PT. PFSH Medical History MRSA (methicillin resistant Staphylococcus aureus) Esophageal ulcer Back pain Elevated cholesterol Urinary incontinence Rosacea Osteoarthritis Lumbar radiculopathy Anemia Fibromyalgia EtOH dependence Cervical dysplasia Arthralgia of hip, right Depression HIV (human immunodeficiency virus infection) HTN (hypertension) Surgical History History of lumbar fusion History of excision of pilonidal cyst Hx of left knee surgery History of tubal ligation Hx of cone biopsy of cervix History of esophagogastroduodenoscopy (EGD) Social History Household Members: Family Household Members Other:: 2 adult sons Housing: House Are you a primary hearing care professional to a significant other at home: No Do you presently have visiting nurse or other home services: No Alcohol intake: current Alcohol intake frequency: former alcohol drinker Comment: uses walker on occasion Patient Tobacco Use Status: Never used Tobacco Substance Use Type: Marijuana service: No Current occupational status: employed 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 Right YELITZA in expected post operative position with no hardware complications or evidence of loosening Left hip with moderate bordering on severe arthritis Assessment & Plan Assessment & Plan (1) S/P total right hip arthroplasty: Code(s): Z96.641 - Presence of right artificial hip joint Category: Surgical Plan: 44-year-old woman doing well 6 weeks status post right hip replacement. Continue therapy. Continue hip precautions. May DC aspirin. Follow up 6 weeks. Orders: Orders XR pelvis 1-2V Today M25.559 - Pain in unspecified hip Coding Level of Care Code Global (59524) Diagnoses S/P total right hip arthroplasty Z96.641
[2024-08-19 13:05] VITALS: BMI 29.0
--- OUTSIDE RECORDS SUMMARY | 2024-08-19 14:04 | XMS_ITS | Clinical Summary ---
Author Organization [employer] Address [address] [facility] [address] [place] [address] Care Team Providers Care Organic Extractions Technician Name Role Phone Unavailable Primary Care Provider [...] 02/20/2023 Active elvitegravir-cob icistat-emtricit abine-tenofovir alafenamide (Genvoya) [phone] MG tablet Take 1 tablet by mouth. [...] Most Recently Relevant to Health Maintenance Insurance [facility] ST[facility]
== END 2024-08-19 14:18 | disposition home or self-care (01) ==
LOC: HO.HOS 12:55
PROVIDERS: PCP Internal Medicine; Visit Provider Orthopaedic Surgery
DX: Z96.641 Presence of right artificial hip joint (principal)
CPT/HCPCS: 99024

== ENCOUNTER → 2024-08-19 12:56 | Outpatient (BNV) | payer OTHER, SELFPAY | PROVIDERS: Visit Provider Radiology Diagnostic Radiology | DX: M25.551 Pain in right hip (principal); Z96.641 Presence of right artificial hip joint | CPT/HCPCS: 73502 ==

== ENCOUNTER 2024-08-31 14:02 | Outpatient (RCR) | payer OTHER, SELFPAY ==
--- NOTE | 2024-08-11 15:54 | MHC.PT.EP ---
[facility] [place] Office [place] Office [place] Office [address] Delvis Carmona [address] [phone] F: [phone] F: [phone] F: [phone] F: [phone] Physical Therapy Plan of Care Date of Evaluation: 08/11/24 Date of Surgery: Diagnosis: s/p R YELITZA 07/13/24 Assessment: Suzanne is a 44 year old female with PMHx of OA, Fibromyalgia, HIV, HTN, History of lumbar fusion, Hx of L knee surgery who is referred to PT for eval and treat s/p R YELITZA performed on 07/13/24 which is resulting in decreased tolerance for walking and standing for duration, negotiating stairs and curbs, lifting objects form the ground, squatting activities as well as heavier HH chores secondary to decreased R hip ROM, decreased hip and core strength, gait abnormality, surgical healing process and pain. Pt is deemed an appropriate candidate to receive skilled PT services to address their physical impairments in order to improve their functional ability. Frequency and Duration: The patient will be seen 2 x/ wk x 6 wks. Short Term Goals: Initiate home program. improve baseline pain to <3/10. initial 5/10. Mcc Goals: I with home program Pt will be able to ascend and descend 1 fl of stairs with reciprocal steps. Pt will improve R hip abd strength by at least 1/2 MMT grade. Improve LEFI by at least 9 points. Treatment Plan: Modalities to reduce pain, spasms and effusion. Manual therapy to restore motion and function. Therapeutic exercise to improve strength and flexibility. Neuromuscular re-education for posture and balance. Therapeutic activities to return to functional activities of daily living. Electronically signed by: Gregorio Hamilton PT. Please sign and return to therapist. Thank you for your referral.
== END 2025-05-04 08:42 | disposition home or self-care (01) ==
LOC: HO.PT 14:02
PROVIDERS: PCP Internal Medicine; Visit Provider Physician Assistant
DX: Z47.1 Aftercare following joint replacement surgery (principal); Z96.641 Presence of right artificial hip joint
CPT/HCPCS: 97110; 97161; 97530

== ENCOUNTER 2024-09-08 15:02 | Outpatient (REF) | payer OTHER, SELFPAY ==
--- OUTSIDE RECORDS SUMMARY | 2024-09-08 17:49 | XMS_ITS | Clinical Summary ---
Author Organization [employer] Address [address] [facility] [address] [place] [address] Care Team Providers Care Data Operations Leader Name Role Phone Unavailable Primary Care Provider [...] 02/20/2023 Active elvitegravir-cob icistat-emtricit abine-tenofovir alafenamide (Genvoya) [phone] MG tablet Take 1 tablet by mouth. [...] Most Recently Relevant to Health Maintenance [facility]
== END 2024-09-08 15:03 | disposition home or self-care (01) ==
LOC: HO.MAMMO 15:02
PROVIDERS: Visit Provider Internal Medicine
DX: Z12.31 Encounter for screening mammogram for malignant neoplasm of breast (principal)
CPT/HCPCS: 77063; 77067

== ENCOUNTER → 2024-09-08 15:15 | Outpatient (BNV) | payer OTHER, SELFPAY | PROVIDERS: Visit Provider Internal Medicine | DX: Z12.31 Encounter for screening mammogram for malignant neoplasm of breast (principal) | CPT/HCPCS: 77063; 77067 ==

== ENCOUNTER 2024-10-14 12:47 | Outpatient (REF) | payer OTHER, SELFPAY ==
--- OUTSIDE RECORDS SUMMARY | 2024-10-14 12:50 | XMS_ITS | Clinical Summary ---
Author Organization [employer] Address [address] [facility] [address] [place] [address] Care Team Providers Care Emission Technician Name Role Phone Unavailable Primary Care [...] 02/20/2023 Active elvitegravir-cob icistat-emtricit abine-tenofovir alafenamide (Genvoya) [phone] MG tablet Take 1 tablet by mouth. [...] Panel 1978 SDOH Screening 1978 Sigmoidoscopy 1978 Disability Screening 1978 Meningococcal Vaccine (1 - Risk 2-dose [...] on patient's age to complete this topic Meningococcal B Vaccine Aged Out No l onger eligible based on patient's age to complete [...] Most Recently Relevant to Health Maintenance Insurance * Guarantor: Megan Turcios Account Type Relation to Patient Date of Phone Billing Address Dental Self [address] [place] [id number] [facility] STAND ADULT * Guarantor: Megan Turcios Account Type Relation to Patient Date of Phone Billing Address Personal/Family Self [address] [place] [id number]
== END 2024-10-14 12:48 | disposition home or self-care (01) ==
LOC: HO.HOSX 12:47
PROVIDERS: Visit Provider Physician Assistant
DX: Z13.89 Encounter for screening for other disorder (principal)

== ENCOUNTER 2024-10-14 13:49 | Emergency (ER) | payer OTHER, SELFPAY ==
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
[2024-10-14 14:15] VITALS: BP 128/75; BP 154/86; PULSE 78; PULSE 92; RESP 14; TEMP 36.5; O2SAT 98; BMI 28.7
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
[2024-10-14] MEDS: Ketorolac Tromethamine 30 MG/ML VIAL IM (15:17)
[2024-10-14] MEDS: Lidocaine 4 % Patch ADH..PATCH 1 PATCH TRANSDERMA (15:18)
[2024-10-14] MEDS: Cyclobenzaprine HCl 10 MG TABLET PO (15:18)
[2024-10-14 17:06] VITALS: BP 128/76; PULSE 74; RESP 16; TEMP 36.5; O2SAT 100
== END 2024-10-14 17:07 | disposition home or self-care (01) ==
PROVIDERS: Emergency Provider Emergency Medicine Emergency Medical Services
DX: S39.012A Strain of muscle, fascia and tendon of lower back, initial encounter (principal); R07.89 Other chest pain; M54.2 Cervicalgia; V43.52XA Car driver injured in collision with other type car in traffic accident, initial encounter; Y93.9 Activity, unspecified; Y92.410 Unspecified street and highway as the place of occurrence of the external cause; Y99.8 Other external cause status
CPT/HCPCS: 70450; 71046; 72100; 72125; 96372; 99284; J1885

== ENCOUNTER → 2024-10-14 14:56 | Outpatient (BNV) | payer OTHER, SELFPAY | PROVIDERS: Emergency Provider Emergency Medicine Emergency Medical Services; Visit Provider Radiology Diagnostic Radiology | DX: M54.2 Cervicalgia (principal); M54.50 Low back pain, unspecified; R07.9 Chest pain, unspecified; R51.9 Headache, unspecified | CPT/HCPCS: 70450; 71046; 72100; 72125 ==

== ENCOUNTER 2024-10-21 13:05 | Outpatient (AMB) | payer OTHER, SELFPAY ==
--- NOTE | 2024-10-21 13:13 | MHC.OFFVIS ---
Vital Signs 10/21/24 13:14 Height 5 ft 6 in Weight 178 lb BMI 28.7 Intake Visit Reasons: OV- R YELITZA w/NE 07/13/24 follow up Intake Note: Megan is a 44 year old female who presents today for a follow up appointment about 3 months s/p Right YELITZA 07/13/24. Patient states that the right hip is doing great, No pain to report at this time.Patient mentioned that she is also experiencing numbness and tingling radiating down both arms to hands. Allergies amlodipine Allergy (Intermediate, Verified 10/21/24 13:19) Swelling azithromycin Allergy (Intermediate, Verified 10/21/24 13:19) Rash rifabutin Allergy (Intermediate, Verified 10/21/24 13:19) Rash HPI HPI OV- R YELITZA w/NE 07/13/24 follow up: Details: Megan is a 44 year old female who presents today for a follow up appointment about 3 months s/p Right YELITZA 07/13/24. Patient states that the right hip is doing great, No pain to report at this time.Patient mentioned that she is also experiencing numbness and tingling radiating down both arms to hands. [facility] Medical History MRSA (methicillin resistant Staphylococcus aureus) Esophageal ulcer Back pain Elevated cholesterol Urinary incontinence Rosacea Osteoarthritis Lumbar radiculopathy Anemia Fibromyalgia EtOH dependence Cervical dysplasia Arthralgia of hip, right Depression HIV (human immunodeficiency virus infection) HTN (hypertension) Surgical History History of lumbar fusion History of excision of pilonidal cyst Hx of left knee surgery History of tubal ligation Hx of cone biopsy of cervix History of esophagogastroduodenoscopy (EGD) Social History Household Members: Family Household Members Other:: 2 adult sons Housing: House Are you a primary health care marketing manager to a significant other at home: No Do you presently have visiting nurse or other home services: No Alcohol intake: current Alcohol intake frequency: holidays/special occasions only Comment: uses walker on occasion Patient Tobacco Use Status: Never used Tobacco Substance Use Type: Marijuana service: No Current occupational status: employed 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 No pain with hip range of motion. Incision clean dry and intact Assessment & Plan Assessment & Plan (1) S/P total right hip arthroplasty: Code(s): Z96.641 - Presence of right artificial hip joint Category: Surgical Plan: She is very happy with her hip. She is having some numbness and tingling in her hands most consistent with carpal tunnel. She is not interested in additional surgery. If it is persists she should follow up and we can send her to 1 of our hand surgeons. Coding Level of Care Code Global (89532) Diagnoses S/P total right hip arthroplasty Z96.641
[2024-10-21 13:14] VITALS: BMI 28.7
--- OUTSIDE RECORDS SUMMARY | 2024-10-21 15:20 | XMS_ITS | Clinical Summary ---
Author Organization [employer] Address [address] [place] [address] Care Team Providers Care Medical Chief Technician Name Role Phone Unavailable Primary Care [...] 02/20/2023 Active elvitegravir-cob icistat-emtricit abine-tenofovir alafenamide (Genvoya) [phone] MG tablet Take 1 tablet by mouth. [...] Most Recently Relevant to Health Maintenance [facility]
== END 2024-10-21 13:35 | disposition home or self-care (01) ==
LOC: HO.HOS 13:06
PROVIDERS: PCP Internal Medicine; Visit Provider Orthopaedic Surgery
DX: Z47.89 Encounter for other orthopedic aftercare (principal); Z96.641 Presence of right artificial hip joint
CPT/HCPCS: 99213

== ENCOUNTER → 2024-10-21 13:05 | Outpatient (BNVA) | payer OTHER, SELFPAY | PROVIDERS: PCP Internal Medicine; Visit Provider Orthopaedic Surgery | DX: Z09 Encounter for follow-up examination after completed treatment for conditions other than malignant neoplasm (principal); Z96.641 Presence of right artificial hip joint | CPT/HCPCS: 99212 ==

== ENCOUNTER 2024-11-24 12:44 | Outpatient (AMB) | payer OTHER, SELFPAY ==
--- NOTE | 2024-11-24 12:53 | A.SPINEOV_ITS ---
Intake Visit Reasons: F/u Intake Note: Ms. Tam Manning is here today for a 4month F/u with xrays. Angular J[employer] Developer Required: No Allergies amlodipine Allergy (Intermediate, Verified 11/24/24 12:59) Swelling azithromycin Allergy (Intermediate, Verified 11/24/24 12:59) Rash rifabutin Allergy (Intermediate, Verified 11/24/24 12:59) Rash Assessment & Plan Assessment & Plan (1) Lumbar radiculopathy: Code(s): M54.16 - Radiculopathy, lumbar region Category: Medical Plan Procedure: L4-5 TKLIF Megan is a pleasant 44-year-old female who comes in today for her 1 year follow-up after having a L4-[address] Manjarrez. She reports that she has done very well since her surgery, and states that unfortunately she had some bilateral hip degeneration leading to a right-sided total hip replacement completed in June of this year. She does report that she also needs the left hip done as well. In terms of her low back, she states that she still feels some stiffness in her low back, however the bulk of her pain has resolved since the surgery. She is very satisfied overall with her surgery. We reviewed her x-ray images completed in clinic today, which shows stable placement of her surgical instrumentation with no changes from previous x-ray imaging. No new neurological deficits. The patient ambulates well and rises from a seated position without difficulty. There is no need for continued routine follow up with Megan. She has a CT scan booked for 12/02/24 to evaluate for fusion progress. I will review this and call her to update her on the results. Nba Manjarrez MD,PhD [facility] Orders: Orders XR lumbar spine 4V min Today M54.16 - Radiculopathy, lumbar region Coding Level of Care Code Global (42898) Diagnoses Lumbar radiculopathy M54.16
--- OUTSIDE RECORDS SUMMARY | 2024-11-24 13:36 | XMS_ITS | Clinical Summary ---
Author Organization [employer] Address [address] [facility] [address] [place] [address] Care Team Providers Care Gemologist Name Role Phone Unavailable Primary Care Provider [...] 02/20/2023 Active elvitegravir-cob icistat-emtricit abine-tenofovir alafenamide (Genvoya) [phone] MG tablet Take 1 tablet by mouth. [...] 03/28/2023 Dental X-Ray: [facility] 03/29/2024 03/28/2023, 12/19 Influenza Vaccine (#1) 2025 , 03/13/2023, 02/22/2022, Additional history exists Pneumococcal Vaccine: Pediatrics (0 to 5 Years) and At-Risk Patients (6 to 49) Years (4 of 4 - PCV20 or PCV21) 2028 06/28/2021, 05/21/2017, 04/27/2013 DTaP/Tdap/Td Vaccines (3 - Td or Tdap) 11/14/2031 11/13/2021, 03/20/2010 RSV Patients and Patients Aged 60 years or older (1 - 1-dose 75+ series) 2053 HIB Vaccines Aged Out No longer eligi [...] Most Recently Relevant to Health Maintenance Insurance [facility] STAND ADULT
== END 2024-11-24 14:27 | disposition home or self-care (01) ==
LOC: HO.HNS 12:44
PROVIDERS: PCP Internal Medicine; Visit Provider Physician Assistant
DX: M54.16 Radiculopathy, lumbar region (principal)
CPT/HCPCS: 99213

== ENCOUNTER 2024-11-24 12:57 | Outpatient (REF) | payer OTHER, SELFPAY ==
--- NOTE | ~2024-11-24 | XR_ITS ---
EXAMINATION: XR LUMBOSACRAL SPINE CLINICAL INFORMATION: M54.16 - Radiculopathy, lumbar region COMPARISON: 10/14/2024, 01/20/2024. TECHNIQUE: 4 views of the lumbar spine, inclusive of flexion and extension views, were obtained. FINDINGS: Transitional lumbosacral anatomy, with a partially sacralized L5 vertebral body. There is pseudoarticulation of the left transverse process of L5 with the sacrum. There is a mild levoconvex scoliosis, apex at L2. There is a normal lumbar lordosis. There has been posterior fusion of L4-5 with transpedicular screws and posterior connecting rods. There has been placement of intervening disc prosthesis at this level. Hardware appears intact, well seated, without periprosthetic lucency or evidence of complication. There are no fractures, compression deformities, or suspicious bone lesions. There is a 3 mm degenerative appearing retrolisthesis of L1 on L2, and and L2 on L3. These remain static in flexion and extension, with no evidence of instability. Moderate to severe disc degeneration present at L1-2, and L2-3. Mild degeneration present at the other levels. Facets are normally aligned. There are mild to moderate multilevel degenerative facet changes. The sacrum is intact. There are mild degenerative changes in the SI joints. Partially imaged right hip replacement. Normal-appearing soft tissues. XR/XR lumbar spine 4V min IMPRESSION: 1. Transitional lumbosacral anatomy, with a partially sacralized L5 vertebral body. There is a rudimentary L5-S1 disc. 2. Intact L4-5 fusion without complication. 3. There is mild to moderate multilevel lumbar spondylosis. 4. No evidence of instability on flexion and extension views. Electronically signed by: Christian Torres MD 11/24/2024 01:56 PM EDT
== END 2024-11-24 12:58 | disposition home or self-care (01) ==
LOC: HO.HOSX 12:57
PROVIDERS: Visit Provider Physician Assistant
DX: M54.16 Radiculopathy, lumbar region (principal)
CPT/HCPCS: 72110; 99212

== ENCOUNTER → 2024-11-24 13:03 | Outpatient (BNV) | payer OTHER, SELFPAY | PROVIDERS: Visit Provider Radiology Diagnostic Radiology | DX: M47.26 Other spondylosis with radiculopathy, lumbar region (principal); Z98.1 Arthrodesis status | CPT/HCPCS: 72110 ==

== ENCOUNTER 2024-12-08 09:35 | Outpatient (AMB) | payer OTHER, SELFPAY ==
--- NOTE | 2024-12-08 09:46 | MHC.OFFVIS ---
Vital Signs 12/08/24 09:53 Height 5 ft 6 in Weight 178 lb BMI 28.7 Intake Visit Reasons: New prob-B/L knee pain Intake Note: Megan is a 44 year old female who presents today as an established patient, new problem visit to evaluate bilateral knee pain. Patient reports her right knee pain started after her hip surgery. History of left knee surgery. She has constant knee pain that is is equal in both knees. Her pain increases with stair use and after a full work day. Her pain is located around her whole knee and travels down the back of her calf. She has difficulty with bending her knee and feels a tight sensation in her knees. Denies injury. No other treatments. Finds no relief with taking Tylenol. Allergies amlodipine Allergy (Intermediate, Verified 12/08/24 10:39) Swelling azithromycin Allergy (Intermediate, Verified 12/08/24 10:39) Rash rifabutin Allergy (Intermediate, Verified 12/08/24 10:39) Rash Medication List - Last Reconciled 12/08/24 by Arina Anderson PA-C aspirin 325 mg PO BID 42 days buprenorphine-naloxone 8-2 mg 1 film sublingual QID cane As directed celecoxib 200 mg PO BID 30 days cyclobenzaprine 5 mg PO Q8H PRN darunavir (Prezista) 800 mg PO QAM docusate sodium 100 mg PO BID 30 days duloxetine 60 mg PO QAM avngxmn-uzj-qmpgw-tenof alafen [phone] mg (Genvoya) 1 tab PO QAM ferrous sulfate 325 mg PO QAM gabapentin 800 mg PO TID hydrochlorothiazide 12.5 mg PO QAM hydroxyzine pamoate 25 mg PO QID PRN multivitamin 1 tab PO QAM pantoprazole 40 mg PO BID@0630,1600 polyethylene glycol 3350 17 grams PO DAILY PRN walker Folding Front wheeled walker DURATION 99 DAYS HPI HPI New prob-B/L knee pain: Details: 44 yo female presents to the office for bilat knee pain, left knee is worse than right. She states the pain started after her RT YELITZA. She states she has pain with stairs, walking long distances, trying to climb in and out of bed. She states back in 2009 she had a knee injury, she believes she tore a ligament. [facility] Medical History (Updated 12/08/24 @ 11:14 by Arina Anderson PA-C) MRSA (methicillin resistant Staphylococcus aureus) Esophageal ulcer Back pain Elevated cholesterol Urinary incontinence Rosacea Osteoarthritis Lumbar radiculopathy Anemia Fibromyalgia EtOH dependence Cervical dysplasia Arthralgia of hip, right Depression HIV (human immunodeficiency virus infection) HTN (hypertension) Surgical History (Updated 12/08/24 @ 10:59 by Arina Anderson PA-C) S/P total hip arthroplasty History of lumbar fusion History of excision of pilonidal cyst Hx of left knee surgery History of tubal ligation Hx of cone biopsy of cervix History of esophagogastroduodenoscopy (EGD) Social History Household Members: Family Household Members Other:: 2 adult sons Housing: House Are you a primary hospice home care coordinator to a significant other at home: No Do you presently have visiting nurse or other home services: No Alcohol intake: current Alcohol intake frequency: former alcohol drinker Comment: uses walker on occasion Patient Tobacco Use Status: Never used Tobacco Substance Use Type: Marijuana service: No Current occupational status: employed 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 Review of Systems Const All systems reviewed & are unremarkable except as noted in HPI and below Physical Exam Vital Signs: BMI result Body Mass Index 28.7 Const General: cooperative and no acute distress Orientation/consciousness: patient oriented x3 Resp Effort & Inspection: normal respiratory effort and able to speak in complete sentences Cardio Peripheral pulses: Peripheral pulses 2+ throughout Neuro General: patient oriented x3 Extrem Other: Bilateral knees are normal to inspection Trace effusion on the right Full range of motion bilaterally No ligamentous laxity noted Calf supple nontender neurovascularly intact Office Procedures AMB Joint Injection/Aspiration Joint Injection/Aspiration Details: Right knee aspirated a 45 cc of joint fluid Primary Site: right knee Secondary Site: left knee Prep: site was prepped using aseptic technique, ethochloride spray was applied and injection warnings given Injected: 80 mg of, DepoMedrol, with 8 mL of, 1% plain lidocaine and in the joint Procedure: The patient tolerated the procedure well and there was some relief with the local anesthesia Coding 72160 - Glenohumeral/Tronchanteric Bursa/Intraarticular Procedure code (CPT) selection complete Results Reviewed Results Reviewed: X-rays of both knees obtained in the office today show moderate to severe arthritis on the left knee with osteophyte formation Assessment & Plan Assessment & Plan (1) Degenerative arthritis of knee, bilateral: Code(s): M17.0 - Bilateral primary osteoarthritis of knee Category: Medical Plan: We discussed options today which includes conservative management with physical therapy and steroid injections. I explained her arthritis on the left is more likely posttraumatic arthritis from previous ligament injury. She did have a right total hip arthroplasty and is aware of joint replacement surgery. I did explain the role of left total knee arthroplasty in the near future however at this time with her age I think we should try to preserve what she has for as long as we can. She did consent to bilateral knee injections today which she tolerated well. I also aspirated the right knee of 45 cc of joint fluid. Patient was sent for physical therapy and we will see me back as needed. Orders: Orders XR Knee Juan Jose 3V Today M25.561 - Pain in right knee, M25.562 - Pain in left knee Coding Level of Care Code Est Pt Level 3 (05780) Complex EM visit Add On G2211 Diagnoses Degenerative arthritis of knee, bilateral M17.0 CPT Codes Coding - Joint 7: 98128 - Glenohumeral/Tronchanteric Bursa/Intraarticular ([id number])
[2024-12-08 09:53] VITALS: BMI 28.7
--- OUTSIDE RECORDS SUMMARY | 2024-12-08 10:07 | XMS_ITS | Clinical Summary ---
Author Organization [employer] Address [address] [facility] [address] [place] [address] Care Team Providers Care Dump Operator Name Role Phone Unavailable Primary Care [...] 02/20/2023 Active elvitegravir-cob icistat-emtricit abine-tenofovir alafenamide (Genvoya) [phone] MG tablet Take 1 tablet by mouth. [...]
--- OUTSIDE RECORDS SUMMARY | 2024-12-08 10:07 | XMS_ITS | Clinical Summary ---
Author Organization [facility] Address [address] [facility] [address] [place] [phone] Phone Care Team Providers Care Liquid Flavor Compounder Name Role Phone Unavailable Primary Care Provider Unavailabl e Social History Tobacco Use Types Packs/Day Years Used Date Smoking Tobacco: Never Assessed Education Answer Date Recorded Are you interested in more education? Not on viky e 11/19/2023 Are you concerned about learning? Not on file 11/19/2023 No 11/19/2023 No 11/19/2023 Digital Access Answer Date Recorded No 11/19/2023 No 11/19/2023 Reliable internet access at home? Not on file 11/19/2023 Device with a working camera? Not on file Comments Unknown Sex and Gender Information Value Date Recorded Sex Assigned at Not on file Legal Sex Female 10:18 AM EDT Gender Identity Not on file Sexual Orientation Not on file Plan of Treatment Not on file Medical Devices Not on file Insurance [facility] [employer] [address] [place] [address] [address] [place] [address] [place] [address] HEALTHY PARTNERSHIP ACO [facility] [employer] ACO Additional Source Comments The information contained in this document represents components of the legal health record. It is not the complete legal health record.[facility]
== END 2024-12-08 10:40 | disposition home or self-care (01) ==
LOC: HO.HOS 09:36
PROVIDERS: Visit Provider Physician Assistant
DX: M17.0 Bilateral primary osteoarthritis of knee (principal)
CPT/HCPCS: 20610; 99213

== ENCOUNTER → 2024-12-08 09:40 | Outpatient (BNV) | payer OTHER, SELFPAY | PROVIDERS: Visit Provider Radiology Body Imaging | DX: M17.0 Bilateral primary osteoarthritis of knee (principal) | CPT/HCPCS: 73562 ==

== ENCOUNTER 2024-12-08 11:07 | Outpatient (REF) | payer OTHER, SELFPAY ==
--- NOTE | ~2024-12-08 | XR_ITS ---
EXAMINATION: XR KNEE 3 VIEWS BILATERAL CLINICAL INFORMATION: pain COMPARISON: Radiographs of the left knee on March 08, 2016. Radiographs of bilateral knees on March 08, 2016. TECHNIQUE: Three views of the right and left knee. FINDINGS: Right: Lateral position of the patella. No acute fracture. Small marginal osteophytes in the medial and lateral femorotibial compartments. Narrowing of the medial femorotibial joint space. Small suprapatellar joint effusion. Left: Lateral position of the patella. Evidence of previous ligamentous repair. No acute fracture. Moderate-sized tricompartmental marginal osteophytes. Mild narrowing of the tricompartmental joint space. Loose body projecting at the level of the suprapatellar joint space has increased in size from 2016. XR/XR Knee Juan Jose 3V IMPRESSION: Right: Mild degenerative changes. Left: Postoperative changes. Moderate degree of tricompartmental degenerative changes, most severe in the medial femorotibial compartment. Interval increase in size of the loose body in the suprapatellar joint space. Electronically signed by: Olivia Paul MD 12/08/2024 11:09 AM EDT
--- OUTSIDE RECORDS SUMMARY | 2024-12-09 12:01 | XMS_ITS | Clinical Summary ---
Author Organization [facility] Address [address] [facility] [address] [facility] [address] [place] [id number] Phone Care Team Providers Care Underwear Cutter Name Role Phone Unavailable Primary Care Provider [...] Devices Not on file Insurance [facility] HE[employer] PARTNERSHIP ACO [employer] [place] [address] [place] [address] [address] [place] [address] [place] [address] HEALTHY PARTNERSHIP ACO [facility] [employer] ACO Additional Source Comments The information contained in this document represents components of the legal health record. It is not the complete legal health record.[facility]
--- OUTSIDE RECORDS SUMMARY | 2024-12-09 12:01 | XMS_ITS | Clinical Summary ---
Author Organization [employer] Address [address] [facility] [address] [place] [address] Care Team Providers Care Surveyor Helper Name Role Phone Unavailable Primary Care Provider [...] 02/20/2023 Active elvitegravir-cob icistat-emtricit abine-tenofovir alafenamide (Genvoya) [phone] MG tablet Take 1 tablet by mouth. [...]
== END 2024-12-08 11:08 | disposition home or self-care (01) ==
LOC: HO.HOSX 11:07
PROVIDERS: Visit Provider Physician Assistant
DX: M17.0 Bilateral primary osteoarthritis of knee (principal); M25.561 Pain in right knee; Z79.899 Other long term (current) drug therapy
CPT/HCPCS: 20610; 73562; 99212; J1010; J2003

== ENCOUNTER 2025-02-08 13:44 | Emergency (ER) | payer OTHER, SELFPAY ==
--- NOTE | ~2025-02-08 | XR_ITS ---
EXAMINATION: XR CHEST CLINICAL INFORMATION: foreign body COMPARISON: 10/14/2024. TECHNIQUE: 2 views of the chest were obtained. FINDINGS: The cardiac, hilar, and mediastinal contours are normal. The lungs are clear bilaterally. There is no pneumothorax or pleural effusion. There is no focal osseous or soft tissue abnormality. There are mild degenerative changes in the spine. XR/XR chest 2V IMPRESSION: No active pulmonary disease. No radiopaque foreign body evident. Electronically signed by: Christian Torres MD 02/08/2025 02:58 PM EDT RP
[2025-02-08 13:52] VITALS: BP 164/117; PULSE 69; PULSE 96; RESP 19; O2SAT 100; BMI 28.2
--- NOTE | 2025-02-08 15:05 | ED.NAVMDI ---
HPI - Nausea/Vomiting/Diarrhea General Chief complaint: Nausea/Vomiting/Diarrhea Stated complaint: CP S/P CHOKING (RESOLVED) PER EMS Time Seen by Provider: 02/08/25 14:19 History of Present Illness ED Provider: Casper Elizabeth MD HPI Narrative: 44-year-old female with esophageal ulcers and previous food bolus impaction your with recurrent similar symptoms felt she has a pork piece stuck in her esophagus. Related Data Home Medications ?Medication ?Instructions ?Recorded ?Confirmed darunavir 800 mg tablet (Prezista) 800 mg PO QAM 03/31/23 12/08/24 elviteg 150 mg-cob 150 mg-emtricit 1 tab PO QAM 11/05/23 12/08/24 200 mg-tenofo alafenam 10 mg tablet (Genvoya) ferrous sulfate 325 mg (65 mg 325 mg PO QAM 11/05/23 12/08/24 iron) tablet hydroxyzine pamoate 25 mg capsule 25 mg PO QID PRN anxiety 11/05/23 12/08/24 pantoprazole 40 mg tablet,delayed 40 mg PO BID@0630,1600 Heart Burn 11/05/23 12/08/24 release polyethylene glycol 3350 17 gram 17 g PO DAILY PRN Constipation 11/05/23 12/08/24 oral powder packet buprenorphine 8 mg-naloxone 2 mg 1 film sublingual QID 05/26/24 12/08/24 sublingual film gabapentin 800 mg tablet 800 mg PO TID 05/26/24 12/08/24 hydrochlorothiazide 12.5 mg tablet 12.5 mg PO QAM 05/26/24 12/08/24 duloxetine 60 mg capsule,delayed 60 mg PO QAM 06/11/24 12/08/24 release multivitamin 1 tab PO QAM 06/23/24 12/08/24 Previous Rx's ?Medication ?Instructions ?Recorded cane #1 ea 06/28/22 walker #1 ea 04/28/24 aspirin 325 mg tablet 325 mg PO BID 42 days #84 tabs 07/14/24 celecoxib 200 mg capsule 200 mg PO BID 30 days #60 caps 07/14/24 docusate sodium 100 mg capsule 100 mg PO BID 30 days #60 caps 07/14/24 cyclobenzaprine 5 mg tablet 5 mg PO Q8H PRN muscle pain #7 tabs 10/14/24 Allergies Allergy/AdvReac Type Severity Reaction Status Date / Time amlodipine Allergy Intermediate Swelling Verified 02/08/25 13:55 azithromycin Allergy Intermediate Rash Verified 02/08/25 13:55 rifabutin Allergy Intermediate Rash Verified 02/08/25 13:55 [facility] Past Medical History Medical History (Updated 02/09/25 @ 00:01 by Bella Valles) MRSA (methicillin resistant Staphylococcus aureus) Esophageal ulcer Back pain Elevated cholesterol Urinary incontinence Rosacea Osteoarthritis Lumbar radiculopathy Anemia Fibromyalgia EtOH dependence Cervical dysplasia Arthralgia of hip, right Depression HIV (human immunodeficiency virus infection) HTN (hypertension) Surgical History (Updated 12/08/24 @ 10:59 by Arina Anderson PA-C) S/P total hip arthroplasty History of lumbar fusion History of excision of pilonidal cyst Hx of left knee surgery History of tubal ligation Hx of cone biopsy of cervix History of esophagogastroduodenoscopy (EGD) Social History Social History Household Members: Family Household Members Other:: 2 adult sons Housing: House Are you a primary health care sanitary technician to a significant other at home: No Do you presently have visiting nurse or other home services: No Alcohol intake: current Alcohol intake frequency: former alcohol drinker Comment: uses walker on occasion Patient Tobacco Use Status: Never used Tobacco Substance Use Type: Marijuana service: No Current occupational status: employed 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 Alert. occasionally retching appears unwell HEAD/NECK: No visual trauma. EYES: Normal to inspection. No conjunctival erythema. No discharge. ENMT: Hearing grossly normal. External nose normal. RESPIRATORY: Respiratory effort normal. CARDIOVASCULAR: Additional details (Grossly well perfused). Abdomen: Soft nontender SKIN: No jaundice. NEUROLOGICAL: Alert. Moving all extremities x4. Additional details (No gross motor deficits. Normal tone. ). PSYCHIATRIC: Alert. Appearance appropriate for situation. Vital Signs: Vital Signs: Last Vital Signs Temp 97.3 F 02/08/25 18:05 Pulse 73 02/08/25 18:05 Resp 15 02/08/25 18:05 BP 145/103 H 02/08/25 18:05 Pulse Ox 98 02/08/25 18:05 O2 Del Method Room Air 02/08/25 18:05 BMI result Body Mass Index 28.2 Medications Administered Discontinued Medications Generic Name Dose Route Start Last Admin Trade Name Yanni PRN Reason Stop Dose Admin Glucagon 1 mg 02/08/25 15:10 02/08/25 15:50 Glucagon Hcl 1 Mg Vial IVPUSH 02/08/25 15:11 1 mg ONCE ONE Administration Nitroglycerin 0.4 mg 02/08/25 16:58 02/08/25 17:25 Nitroglycerin 0.4 Mg Tab.Subl SUBLINGUAL 02/08/25 16:59 Not Given ONCE ONE Pantoprazole Sodium 80 mg 02/08/25 15:09 02/08/25 15:49 Pantoprazole Sodium 40 Mg/10 Ml Vial IVPUSH 02/08/25 15:10 80 mg ONCE ONE Administration Medical Decision Making Medical Decision Making MDM Narrative: Medical Decision Makin-year-old female with recurrent subjective esophageal food impaction food bolus most likely etiology large piece of pork. She has had this before with endoscopic retrieval. She has generalized discomfort and full feeling no chest pain or difficulty breathing. No choking or aspiration like presentation. Vital signs stable looks uncomfortable occasional spitting. She is protecting her airway at this time. She is swallowing oral secretions but later spitting them back up. Case was initially discussed with the GI see below. Recommendations for nitroglycerin which was never actually given because the patient vomited up port prior to their arrival for endoscopy. She did receive glucagon. No complications patient tolerated applesauce full glass of water after this and felt comfortable discharged home. Counseled on small meals no large me continue PPI Preliminary Favored Differential Diagnosis: eosinophilic esophagitis, esophageal food impaction, esophageal injury, ulceramong additional considered etiologies Testing Interpreted Independently: See below for details Radiology or Lab testing Results Reviewed: See below for details Consults: case discussed with on-call GI who prepared endoscopy team. Eventually he was called back as the patient vomited up before and was able to tolerate p.o. endoscopy was canceled Independent Historians/External Chart Reviews: See below for details Social Determinants of Health Impacting MDM/Planning: See below for details Consult Healthcare Provider Management of the patient was discussed with: Integrity Manager Lab Data 02/08/25 15:21 02/08/25 15:21 Labs: Lab Results 02/08/25 Range/Units 15:21 WBC 5.6 (4.8-10.8) X10*3/uL RBC 4.68 D (4.20-5.50) X10*6/uL Hgb 12.7 D (12.0-16.0) g/dl Hct 39.2 D (37.0-47.0) % MCV 83.8 (80.0-98.0) fL MCH 27.1 (27.0-33.0) pg MCHC 32.4 (31.0-35.0) g/dl RDW 14.8 (11.0-16.0) % Plt Count 253 (160-400) X10*3/uL MPV 8.7 L (9.4-12.3) fL Immature Gran % (Auto) 0.2 (0.0-0.4) % Neut % (Auto) 64.6 (45-73) % Lymph % (Auto) 25.0 (20-40) % [place] % (Auto) 7.9 (2-11) % Eos % (Auto) 1.6 (0-4) % Baso % (Auto) 0.7 (0-2) % Lymph # (Auto) 1.4 (1.2-4.9) X10*3/uL [place] # (Auto) 0.4 (0.1-1.2) X10*3/uL Eos # (Auto) 0.1 (0.0-0.4) X10*3/uL Baso # (Auto) 0.0 (0.0-0.2) X10*3/uL Abs Immat Gran (auto) 0.01 (0.00-0.03) X10*3/uL Absolute Neuts (auto) 3.6 (2.0-8.3) x10*3/uL Absolute Nucleated RBC 0.000 (0.0-0.012) X10*3/uL Nucleated RBC % (auto) 0.0 (0.0-0.2) /100WBC Sodium 139 (135-145) mmol/L Potassium 3.6 D (3.3-5.1) mmol/L Chloride 102 (96-108) mmol/L Carbon Dioxide 30 H (22-29) mmol/L Anion Gap 11 L (12-20) BUN 11 (9-16) mg/dL Creatinine 0.65 (0.5-1.4) mg/dL Estim Creat Clear Calc 114.9 Estimated GFR > 60 Random Glucose 101 (60-115) mg/dL Calcium 9.3 D (8.4-10.2) mg/dL Discharge Plan Discharge Clinical Impression: Food impaction of esophagus Qualifiers: Encounter type: initial encounter Qualified Code(s): T18.128A - Food in esophagus causing other injury, initial encounter Patient Disposition: Home, Self-Care Instructions: Food Impaction (ED) Additional Instructions: Continue taking your medications as prescribed. Call GI practice as shown on this paperwork to schedule follow up. As we discussed you should not eat large pieces of meat or other firm food items. Prescriptions: No Action (DME) walker Misc See Rx Instructions .MEDSUPPLY Qty: 1 0RF Rx Instructions: Folding Front wheeled walker DURATION 99 DAYS (DME) cane Device See Rx Instructions .Route Qty: 1 0RF Rx Instructions: As directed ferrous sulfate 325 mg (65 mg iron) Tablet 325 mg PO QAM polyethylene glycol 3350 17 gram Powder In Packet 17 g PO DAILY PRN (Reason: Constipation) pantoprazole 40 mg tablet,delayed release (DR/EC) 40 mg PO BID@0630,1600 hydroxyzine pamoate 25 mg capsule 25 mg PO QID PRN (Reason: anxiety) Genvoya [phone] mg tablet 1 tab PO QAM Patient Comments: Patient takes darunavir and genvoya together alone, separates other medications admin times by 2 hours duloxetine 60 mg capsule,delayed release(DR/EC) 60 mg PO QAM multivitamin Tablet 1 tab PO QAM aspirin 325 mg Tablet 325 mg PO BID 42 Days Qty: 84 0RF celecoxib 200 mg Capsule 200 mg PO BID 30 Days Qty: 60 0RF docusate sodium 100 mg Capsule 100 mg PO BID 30 Days Qty: 60 0RF gabapentin 800 mg tablet 800 mg PO TID buprenorphine-naloxone 8-2 mg film 1 film sublingual QID cyclobenzaprine 5 mg tablet 5 mg PO Q8H PRN (Reason: muscle pain) Qty: 7 0RF darunavir [Prezista] 800 mg tablet 800 mg PO QAM Patient Comments: Patient takes darunavir and genvoya together alone, separates other medications admin times by 2 hours hydrochlorothiazide 12.5 mg tablet 12.5 mg PO QAM Referrals: [facility] G[facility] Services [Provider Group, Gastroenterology] Interventions: ED Discharge Assessment Last Done: 02/08/25 18:05 Discharge Date/Time: 02/08/25 18:20 Print Language: Swedish
[2025-02-08 15:27] LABS: MANUAL DIFF FLAG NO
[2025-02-08 15:28] LABS: Hematocrit 39.2 % (37.0-47.0); Hemoglobin 12.7 g/dl (12.0-16.0); Imm Gran Abs Auto 0.01 X10*3/uL (0.00-0.03); Imm Gran Pct Auto 0.2 % (0.0-0.4); Lymphocytes Absolute Auto 1.4 X10*3/uL (1.2-4.9); Mean Corpuscular HGB Conc 32.4 g/dl (31.0-35.0); Mean Corpuscular Hemoglobin 27.1 pg (27.0-33.0); Mean Corpuscular Volume 83.8 fL (80.0-98.0); NRBC Abs Auto 0.000 X10*3/uL (0.0-0.012); NRBC Pct Auto 0.0 /100WBC (0.0-0.2); Platelet Count 253 X10*3/uL (160-400); Red Blood Count 4.68 X10*6/uL (4.20-5.50); White Blood Count 5.6 X10*3/uL (4.8-10.8)
[2025-02-08 15:46] LABS: Anion Gap 11 (12-20); Blood Urea Nitrogen 11 mg/dL (9-16); Calcium 9.3 mg/dL (8.4-10.2); Carbon Dioxide 30 mmol/L (22-29); Chloride 102 mmol/L (96-108); Creatinine Clr Calc Pharmacy 114.9; Estimated Glomerular Filt Rate > 60; Potassium 3.6 mmol/L (3.3-5.1); Sodium 139 mmol/L (135-145)
--- NOTE | 2025-02-08 17:01 | PM.GICN ---
History of Present Illness Data of Consult Service Date: 02/08/25 Primary Care Provider: Shala Shields MD [facility] Reason for consult: food bolus impaction 44 yr old f being seen for food impaction in esophagus She ate Pork Last EGD 05/11- food impaction pushed into stomach, ring noted PMFSH Past Medical History Medical History (Updated 12/08/24 @ 11:14 by Arina Anderson PA-C) MRSA (methicillin resistant Staphylococcus aureus) Esophageal ulcer Back pain Elevated cholesterol Urinary incontinence Rosacea Osteoarthritis Lumbar radiculopathy Anemia Fibromyalgia EtOH dependence Cervical dysplasia Arthralgia of hip, right Depression HIV (human immunodeficiency virus infection) HTN (hypertension) Surgical History Surgical History (Updated 12/08/24 @ 10:59 by Arina Anderson PA-C) S/P total hip arthroplasty History of lumbar fusion History of excision of pilonidal cyst Hx of left knee surgery History of tubal ligation Hx of cone biopsy of cervix History of esophagogastroduodenoscopy (EGD) Social History Social History Household Members: Family Household Members Other:: 2 adult sons Housing: House Are you a primary adult care manager to a significant other at home: No Do you presently have visiting nurse or other home services: No Alcohol intake: current Alcohol intake frequency: former alcohol drinker Comment: uses walker on occasion Patient Tobacco Use Status: Never used Tobacco Substance Use Type: Marijuana Advance Directives: No Advance Directives Information Provided: Yes Do you have a plan to hurt others: No Plan service: No Current occupational status: employed 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 Allergy/AdvReac Type Severity Reaction Status Date / Time amlodipine Allergy Intermediate Swelling Verified 02/08/25 13:55 azithromycin Allergy Intermediate Rash Verified 02/08/25 13:55 rifabutin Allergy Intermediate Rash Verified 02/08/25 13:55 Home Medications ?Medication ?Instructions ?Recorded ?Confirmed ?Last Taken ?Type darunavir 800 mg tablet (Prezista) 800 mg PO QAM 03/31/23 12/08/24 07/13/24 History elviteg 150 mg-cob 150 mg-emtricit 1 tab PO QAM 11/05/23 12/08/24 07/13/24 History 200 mg-tenofo alafenam 10 mg tablet (Genvoya) ferrous sulfate 325 mg (65 mg 325 mg PO QAM 11/05/23 12/08/24 05/25/24 History iron) tablet hydroxyzine pamoate 25 mg capsule 25 mg PO QID PRN anxiety 11/05/23 12/08/24 Unknown History pantoprazole 40 mg tablet,delayed 40 mg PO BID@0630,1600 Heart Burn 11/05/23 12/08/24 Unknown History release polyethylene glycol 3350 17 gram 17 g PO DAILY PRN Constipation 11/05/23 12/08/24 Unknown History oral powder packet buprenorphine 8 mg-naloxone 2 mg 1 film sublingual QID 05/26/24 12/08/24 07/12/24 History sublingual film gabapentin 800 mg tablet 800 mg PO TID 05/26/24 12/08/24 05/25/24 History hydrochlorothiazide 12.5 mg tablet 12.5 mg PO QAM 05/26/24 12/08/24 05/25/24 History duloxetine 60 mg capsule,delayed 60 mg PO QAM 06/11/24 12/08/24 Unknown History release multivitamin 1 tab PO QAM 06/23/24 12/08/24 Unknown History Physical Exam Vital Signs: Vital Signs: Last Vital Signs Pulse 69 02/08/25 13:52 Resp 19 02/08/25 13:52 Pulse Ox 100 02/08/25 13:52 O2 Del Method Room Air 02/08/25 13:52 BMI result Body Mass Index 28.2 Results Labs 02/08/25 15:21 02/08/25 15:21 Labs: Short CBC 02/08/25 Range/Units 15:21 WBC 5.6 (4.8-10.8) X10*3/uL Hgb 12.7 D (12.0-16.0) g/dl Hct 39.2 D (37.0-47.0) % Plt Count 253 (160-400) X10*3/uL BMP 02/08/25 15:21 Sodium 139 Potassium 3.6 D Chloride 102 Carbon Dioxide 30 H BUN 11 Creatinine 0.65 Calcium 9.3 D Procedures Date of Service Date of Service: 02/08/25
--- OUTSIDE RECORDS SUMMARY | 2025-02-08 17:14 | XMS_ITS | Clinical Summary ---
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 [...] 12/19/2020 Dental X-Ray: Full Mouth 12/21/2023 12/19/2020 Tobacco Screening 03/28/2024 03/28/2023 Dental X-Ray: Bitewings 03/29/2024 03/28/2023, 12/19 COVID-19 Vaccine ( season) 2025 04/04/2022, 11/02/2021, 03/08/2021, Additional history exists Influenza Vaccine (#1) 2025 , 03/13/2023, 02/22/2022, [...]
--- OUTSIDE RECORDS SUMMARY | 2025-02-08 17:14 | XMS_ITS | Clinical Summary ---
Author Organization [facility] Address 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 It is not the complete legal health record.[facility]
--- NOTE | 2025-02-08 17:25 | PC.NURSE ---
Pt states that while she was in the restroom she threw up the chunk of meat that was stuck. Pt able to drink water w/o pain or discomfort, currently denies chest/esophageal discomfort/pain. aware.
[2025-02-08 18:05] VITALS: BP 145/103; PULSE 73; RESP 15; TEMP 36.3; O2SAT 98
== END 2025-02-08 18:20 | disposition home or self-care (01) ==
PROVIDERS: Emergency Provider Emergency Medicine; PCP Internal Medicine
DX: R11.2 Nausea with vomiting, unspecified (principal); R07.89 Other chest pain; R09.89 Other specified symptoms and signs involving the circulatory and respiratory systems; Z79.899 Other long term (current) drug therapy
CPT/HCPCS: 36415; 71046; 80048; 85025; 96374; 99284; J1610; J2470

== ENCOUNTER → 2025-02-08 14:45 | Outpatient (BNV) | payer OTHER, SELFPAY | PROVIDERS: Emergency Provider Emergency Medicine; PCP Internal Medicine; Visit Provider Radiology Diagnostic Radiology | DX: T18.128A Food in esophagus causing other injury, initial encounter (principal) | CPT/HCPCS: 71046 ==

== ENCOUNTER 2025-03-31 15:00 | Outpatient (RCR) | payer OTHER, SELFPAY | END 2025-03-31 15:54 | disposition home or self-care (01) | LOC: HO.PTCHIC 15:00 | PROVIDERS: PCP Internal Medicine | DX: M54.2 Cervicalgia (principal); M54.50 Low back pain, unspecified; M25.519 Pain in unspecified shoulder | CPT/HCPCS: 97110; 97140; 97161; 97164 ==